=== PATIENT | male | born 1960 | race Hispanic/Latino ===

== ENCOUNTER 2022-06-11 10:58 | Emergency (ER) | payer BC, OTHER ==
--- OUTSIDE RECORDS SUMMARY | 2022-06-11 11:01 | XMS REPORT | Continuity of Care Document ---
:1960 Author Organization [facility] t Address [address] [place] [address] Care Team Providers Name Role Phone Loreto Tomlinson DO Primary Care Physician LORETO TOMLINSON Attending Clinician Unavailable [id number] Attending Clinician Unavailable Loreto Tomlinson DO Attending Clinician Payers Payer Name Policy Type Policy Number Effective Date Expiration Date S yordan 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 diabetes diabetes 5-25 Seybol d mellitus mellitus 00:00: with with 00 hyperlipid hyperlipid emia emia Well adult Well adult Disease Active K elsey exam exam 5-25 Seybold 00:00: 00 Overweight Overweight Disease Active K elsey (BMI (BMI 5-25 Seybold 25.0-29.9) 25.0-29.9) 00:00: 00 Mixed Mixed Problem Active Common hyperlipid hyperlipid Sp hali emia emia - [facility] Uncontroll Uncontroll Diagnosis Active Common ed type 2 ed type 2 Spir it diabetes diabetes - [facility] mellitus mellitus [facility] without [facility] complicati complicati Me dical on, on, Center without without long-term long-term current current use of use of insulin insulin Essential Essential Problem Active Com mon hypertensi hypertensi Sp hali on on - [facility] Diabetes Diabetes Problem Active Commo n [facility] Hyperlipid Hyperlipid Diagnosis Active Common emia, emia, Spirit unspecifie unspecifie - [facility] d d hyperlipid hyperlipid Liz kes emia type emia type [facility] Fever, Fever, Diagnosis Active Common unspecifie unspecifie Sp hali d fever d fever - [facility] cause cause [facility] Flu-like Flu-like Diagnosis Active Com mon symptoms symptoms [facility] Hypertensi Hypertensi Diagnosis Active Common ve urgency ve urgency Sp hali - [facility] Viral Viral Diagnosis Active Common upper upper Spirit respirator respirator - [facility] y illness y illness [facility] Allergies, Adverse Reactions, Alerts This patient has no known allergies or adverse reactions. Social History Social Habit Start Date Stop Date Quantity Comments Source History SDOH Charo junior Alcohol Frequency History SDOH Charo junior Alcohol Std Drinks History SDOH Charo junior Alcohol Binge Alcohol intake 2022-02-23 2022-02-23 Charo delong 00:00:00 00:00:00 Education 2022-02-10 2022-02-10 6 Charo Doss 00:00:00 00:00:00 Tobacco use and 2022-02-10 2022-02-10 Smokeless tobacco Clyde Doss exposure 00:00:00 00:00:00 non-user Alcohol Comment 2022-02-10 2022-02-10 occasionally Charo Doss 00:00:00 00:00:00 Sex [birth year] At [birth year] Charo miller 00:00:00 00:00:00 Smoking Status Start Date Stop Date Source Never smoked tobacco Charo dumont Medications Ordered Filled Start Stop Current Ordering Indication Dosage Frequency Signature Comments Components Source Medication Medication Date Date Medication? Clinician (SIG) Name Name Lisinopril Yes [id number] 20mg Take 1 K elsey 20 MG oral 6-07 tablet (20 Sey bold Tablet 00:00: mg total) 00 by mouth daily Lisinopril Yes [id number] 10mg Take 1 K elsey 10 MG oral 5-25 tablet (10 Sey bold Tablet 00:00: mg total) 00 by mouth daily Metformin Yes [id number] 500mg Take 1 K elsey HCl 500 MG 5-25 tablet Seybold oral Tablet 00:00: (500 mg 00 total) by mouth daily (with breakfast) Metformin Yes [id number] 500mg Take 1 K elsey HCl 500 MG 5-25 tablet Seybold oral Tablet 00:00: (500 mg 00 total) by mouth daily (with breakfast) Lisinopril 2021- No [id number] 10mg Take 1 Charo 10 MG oral 5-25 06-07 tablet (10 Se ybold Tablet 00:00: 00:00 mg total) 00 :00 by mouth daily Metformin Metformin Yes Na Owens 1 tablet Common HCl HCl 3-19 with meals Spirit 00:00: - [facility] Pravastatin Pravastatin Yes Na Owens 1 tablet Common Sodium Sodium 12-05 Spirit 00:00: - [facility] Amlodipine Amlodipine Yes Na Owens 1 tablet Common Besylate Besylate 12-05 Spirit 00:00: - [facility] 00 [facility] Glucometer Glucometer 2017-2025- No Na Owens Check BS Common Kit Kit 11-17 twice a Spirit 00:00: 00:00 day - [facility] 00 :00 [facility] Lisinopril Lisinopril Yes Na Owens 1 tablet Common [facility] - [facility] Immunizations Ordered Immunization Filled Immunization Date Status Commen ts Source Name Name Tdap- (Boostrix, 2022-02-10 Completed Charo thompson Adasantiago) 00:00:00 Tdap- (Boostrix, 2022-02-10 Completed Charo thompson Adacel) 00:00:00 Vital Signs Vital Name Observation Time Observation Value Comments Source Systolic blood pressure 2022-02-23 15:46:00 148 mm[Hg] Charo Seybold Diastolic blood 2022-02-23 15:46:00 70 mm[Hg] Kelse y Seybold pressure Heart rate 2022-02-23 15:46:00 107 /min Charo S eybold Body temperature 2022-02-23 15:46:00 36.89 Santiago Parul ey Seybold Respiratory rate 2022-02-23 15:46:00 16 /min Parul ey Seybold Body height 2022-02-23 15:46:00 170.2 cm Charo S eybold Body weight 2022-02-23 15:46:00 80.287 kg Charo S eybold BMI 2022-02-23 15:46:00 27.72 kg/m2 Charo S eybold Systolic blood pressure 2022-02-10 18:31:00 170 mm[Hg] Charo Seybold Diastolic blood 2022-02-10 18:31:00 80 mm[Hg] Kelse y Seybold pressure Heart rate 2022-02-10 18:31:00 106 /min Charo Pabon eybold Body temperature 2022-02-10 18:31:00 36.67 Santiago Parul ey Seybold Respiratory rate 2022-02-10 18:31:00 14 /min Parul ey Seybold Body height 2022-02-10 18:31:00 170.2 cm Charo morelandbold Body weight 2022-02-10 18:31:00 81.647 kg Charo morelandbold BMI 2022-02-10 18:31:00 28.19 kg/m2 Charo morelandbold Oxygen saturation in 2022-02-10 18:31:00 99 /min Charo Doss Arterial blood by Pulse oximetry Procedures This patient has no known procedures. Encounters Start End Encounter Admission Attending Care Care Encounter Source Date/Time Date/Time Type Type Clinicians Facility Department ID 2022-06-11 2022-06-11 Outpatient CHARO TOMLINSON [id number] Charo 00:00:00 00:00:00 LORETO Monteroybol d 2022-06-02 2022-06-02 Outpatient LAB90 CHARO OTERO [id number] Charo 11:55:00 11:55:00 Seybol d 2022-06-01 2022-06-01 Outpatient CHARO TOMLINSON [id number] Charo 00:00:00 00:00:00 LORETO Seybol d 2022-05-31 2022-05-31 Outpatient PREZAS, CHARO CHARO [id number] Charo 00:00:00 00:00:00 LORETO Seybol d 2022-05-28 2022-05-28 Office PrezaSandoval pabon [id number] Charo 15:45:00 16:00:00 Visit Loreto Souza [id number] Se ybold [id number] 2022-03-23 2022-03-23 Outpatient PREZASCHARO CHARO [id number] Charo 08:00:00 08:00:00 LORETO Seybol d 2022-03-15 2022-03-15 Outpatient PREZAS, CHARO CHARO [id number] Charo 00:00:00 00:00:00 LORETO Seybol d 2022-02-23 2022-02-23 Office PrezaSandoval pabon [id number] Charo 10:45:00 11:00:00 Visit Loreto Souza [id number] Se ybold [id number] 2022-02-23 2022-02-23 Outpatient PREZAS, CHARO CHARO [id number] Charo 00:00:00 00:00:00 LORETO Seybol d 2022-02-10 2022-02-10 Office JoseluiszaSandoval pabon [id number] Charo 13:45:00 14:15:00 Visit Loreto Souza [id number] Se ybold [id number] 2018-12-21 2018-12-21 [facility] [id number] Common 14:40:00 14:40:00 t Transfer To [facility] [address] [facility] 2017-12-21 2017-12-21 [facility] [id number] Common 16:14:00 16:14:00 t Transfer To [facility] [address] [facility] 2017-12-05 2017-12-05 Outpatient Dioncorinne [facility] [id number] Common 11:30:00 11:30:00 t Transfer To [facility] Results This patient has no known results.
[2022-06-11 12:36] LABS: Absolute Lymphocytes (CBC) 1.8 K/uL (0.7-4.9); Hematocrit 30.4 % (39.6-49.0); Lymphocytes % 12.2 % (15.3-44.8); MCV 68.2 fL (80-100); MPV 7.3 fL (7.6-11.3); RBC Red Blood Cell Count 4.46 M/uL (4.33-5.43)
[2022-06-11] MEDS ORDERED: NA CHLORIDE 0.9% 1,000 ML ONE ×2 (12:43→16:14)
[2022-06-11 12:49] LABS: Albumin 2.1 g/dL (3.4-5.0); Bilirubin Total 0.4 mg/dL (0.2-1.0); Potassium 3.1 mmol/L (3.5-5.1); Protein, Total 7.3 g/dL (6.4-8.2)
[2022-06-11 13:22] LABS: Blood Morphology Comment NOT SEEN (NOT SEEN); Platelet Estimate INCR; White Blood Cell Scan OK (OK)
[2022-06-11] MEDS ORDERED: PROMETHAZINE INJ 25 MG/ML AMP ONE (13:27)
--- NOTE | 2022-06-11 13:36 | RAD REPORT ---
EXAM DESCRIPTION: CT - Abdomen Pelvis Wo Contrast - 06/11/2022 1:08 pm CLINICAL HISTORY: Abdominal pain. sadf COMPARISON: No comparisons TECHNIQUE: CT imaging of the abdomen and pelvis was performed without contrast. Solid organ, bowel a nd vascular assessment is limited due to lack of IV and oral contrast. All CT scans are performed using dose optimization technique as appropriate and may include automated exposure control or mA/KV adjustment according to patient size. FINDINGS: The lower lung andrews are clear. The liver, spleen, pancreas, adrenal glands and right kidney are within normal limits for a limited n on-contrast examination.Punctate calculi are seen left kidney without hydronephrosis. There is severe distention of the colon present which appears filled with stool. There is a masslike lesion suspected upper rectum which appears to cause this obstruction. This is a large lesion measur ing approximately 6 x 5 cm. There are several surrounding lymph nodes and mild free fluid noted in th e pelvis. Full assessment is limited due to the significant impaction of stool in the colon and and l ack contrast. The osseous structures are within normal limits. IMPRESSION: Obstruction of the colon is present. This is likely caused by a masslike lesion in the u pper rectal region. Malignancy is most likely. Recommend followup colonoscopy for direct visualizatio n. A limited non-contrast examination was performed as detailed.
--- NOTE | 2022-06-11 14:12 | EDPHYS ---
Physician Documentation [facility] Name: Catalino Song Age: 61 yrs Sex: Male : 1960 Arrival Date: 06/11/2022 Time: 11:02 Bed 12 Private MD: Lincoln Cullen ED Physician Timmy Dias HPI: 06/11 11:44 This 61 yrs old Male presents to ER via Unassigned with complaints of jl9 Abdominal pain and constipation x2 weeks. . 11:44 The patient presents with abdominal pain that is diffuse, abdominal distention that is jl9 diffuse. blunt injury. Onset: The symptoms/episode began/occurred 2 week(s) ago. The symptoms do not radiate. Associated signs and symptoms: Pertinent positives:. The symptoms are described as achy. Modifying factors: The symptoms are alleviated by nothing, the symptoms are aggravated by. Severity of pain: in the emergency department the pain is a 3 / 10. Historical: - Allergies: 12:07 No Known Allergies; ld1 - PMHx: 12:07 Hypertensive disorder; Hypercholesterolemia; Diabetes mellitus; ld1 - PSHx: 12:07 None; ld1 - Immunization history:: Adult Immunizations up to date, Client reports receiving the 2nd dose of the Covid vaccine. - Social history:: Smoking status: Patient denies any tobacco usage or history of. Patient/guardian denies using alcohol. ROS: 11:45 Constitutional: Negative for fever, chills, and weight loss, Eyes: Negative for injury, jl9 pain, redness, and discharge, ENT: Negative for injury, pain, and discharge, Neck: Negative for injury, pain, and swelling, Cardiovascular: Negative for chest pain, palpitations, and edema, Respiratory: Negative for shortness of breath, cough, wheezing, and pleuritic chest pain. 11:45 Back: Negative for injury and pain, : Negative for injury, bleeding, discharge, and swelling, MS/Extremity: Negative for injury and deformity, Skin: Negative for injury, rash, and discoloration, Neuro: Negative for headache, weakness, numbness, tingling, and seizure, Psych: Negative for depression, anxiety, suicide ideation, homicidal ideation, and hallucinations, Allergy/Immunology: Negative for hives, rash, and allergies, Endocrine: Negative for neck swelling, polydipsia, polyuria, polyphagia, and marked weight changes, Hematologic/Lymphatic: Negative for swollen nodes, abnormal bleeding, and unusual bruising. 11:45 Abdomen/GI: Positive for abdominal pain. Exam: 11:45 Constitutional: This is a well developed, well nourished patient who is awake, alert, jl9 and in no acute distress. Head/Face: Normocephalic, atraumatic. Eyes: Pupils equal round and reactive to light, extra-ocular motions intact. Lids and lashes normal. Conjunctiva and sclera are non-icteric and not injected. Cornea within normal limits. Periorbital areas with no swelling, redness, or edema. ENT: Mucous membranes moist. Neck: Trachea midline, no thyromegaly or masses palpated, and no cervical lymphadenopathy. Supple, full range of motion without nuchal rigidity, or vertebral point tenderness. No Meningismus. Chest/axilla: Normal chest wall appearance and motion. Nontender with no deformity. No lesions are appreciated. Cardiovascular: Regular rate and rhythm with a normal S1 and S2. No gallops, murmurs, or rubs. Normal PMI, no JVD. No pulse deficits. Respiratory: Lungs have equal breath sounds bilaterally, clear to auscultation and percussion. No rales, rhonchi or wheezes noted. No increased work of breathing, no retractions or nasal flaring. 11:45 Back: No spinal tenderness. No costovertebral tenderness. Full range of motion. Skin: Warm, dry with normal turgor. Normal color with no rashes, no lesions, and no evidence of cellulitis. MS/ Extremity: Pulses equal, no cyanosis. Neurovascular intact. Full, normal range of motion. Neuro: Awake and alert, GCS 15, oriented to person, place, time, and situation. Cranial nerves II-XII grossly intact. Motor strength 5/5 in all extremities. Sensory grossly intact. Cerebellar exam normal. Normal gait. Psych: Awake, alert, with orientation to person, place and time. Behavior, mood, and affect are within normal limits. 11:45 Abdomen/GI: Inspection: distension, that is mild, Bowel sounds: active, Palpation: mild abdominal tenderness, in all quadrants, Rectal exam: Vital Signs: 12:06 Resp 18; Temp 97.3(TE); Pulse Ox 98% on R/A; Weight 79.38 kg; Height 5 ft. 8 in. ld1 (172.72 cm); Pain 8/10; 12:13 BP 121 / 78; Pulse 109; ld1 12:30 BP 134 / 85; Pulse 101; Resp 18; Pulse Ox 100% on R/A; Pain 0/10; eh3 13:30 BP 130 / 84; Pulse 108; Resp 18; Pulse Ox 100% on R/A; eh3 14:30 BP 122 / 74; Pulse 111; Resp 18; Pulse Ox 99% on R/A; eh3 15:24 BP 135 / 73; Pulse 115; Resp 18 S; Pulse Ox 100% on R/A; iw 16:30 BP 199 / 76; Pulse 101; Resp 18; Pulse Ox 100% on R/A; eh3 16:51 BP 112 / 71; Pulse 101; Resp 18; Pulse Ox 98% on R/A; iw 12:06 Body Mass Index 26.61 (79.38 kg, 172.72 cm) ld1 MDM: 11:41 Patient medically screened. [facility] 11:45 Data reviewed: vital signs, nurses notes. 9 14:09 Physician consultation: Carlos A Tsai MD was called at 14:09, Recommends patient be jl9 transferred. . 15:35 Physician consultation: Spoke to [facility] surgeon and hospitalist and they accept for jl9 transfer. . 06/11 11:36 Order name: CBC with Diff; Complete Time: 13:29 [facility] 06/11 11:36 Order name: CMP; Complete Time: 12:50 [facility] 06/11 11:36 Order name: Lipase; Complete Time: 12:50 [facility] 06/11 13:23 Order name: CBC Smear Scan; Complete Time: 13:29 [facility] 06/11 13:40 Order name: Lactate; Complete Time: 15:45 [facility] 06/11 13:40 Order name: Blood Culture Adult (2) [facility] 06/11 13:00 Order name: Abdomen ; Complete Time: 13:39 [facility] 06/11 14:19 Order name: SARS RAPID; Complete Time: 15:15 eb 06/11 15:25 Order name: XRAY KUB; Complete Time: 16:08 iw 06/11 11:36 Order name: IV Saline Lock; Complete Time: 12:29 [facility] 06/11 11:36 Order name: Labs collected and sent; Complete Time: 12:30 jl9 06/11 13:41 Order name: NG Tube; Complete Time: 15:23 jl9 Administered Medications: 12:37 Drug: NS 0.9% 1000 ml Route: IV; Rate: 1000 ml; Site: right antecubital; [facility] 14:25 Follow up: IV Status: Completed infusion; IV Intake: 1000ml [facility] 13:25 Drug: Promethazine 12.5 mg Route: IVP; Site: right antecubital; [facility] 14:25 Follow up: Response: Nausea is decreased [facility] 16:16 Drug: NS 0.9% 1500 ml Route: IV; Rate: 1500 ml; Site: right antecubital; [facility] 17:40 Follow up: IV Status: Infusion continued upon transfer; IV Intake: 500ml [facility] 16:40 Drug: Cipro (ciprofloxacin) 400 mg Volume: 200 ml; Route: IVPB; Infused Over: 60 mins; [facility] Site: right antecubital; 17:40 Follow up: IV Status: Completed infusion; IV Intake: 200ml [facility] 16:40 Drug: metroNIDAZOLE 500 mg Volume: 100 ml; Route: IVPB; Infused Over: 30 mins; Site: [facility] right antecubital; 17:38 Follow up: IV Status: Completed infusion; IV Intake: 100ml [facility] Disposition: 16:09 Co-signature as Attending Physician, Timmy Dias MD. rn Disposition Summary: 06/11/22 14:11 Transfer Ordered Transfer Location: [facility] jl9 Reason: Higher level of care jl9 Condition: Serious jl9 Problem: new jl9 Symptoms: are unchanged jl9 Accepting Physician: s(06/11/22 17:41) [facility] Diagnosis - Other intestinal obstruction jl9 Forms: - Medication Reconciliation Form jl9 - SBAR form jl9 Signatures: Dispatcher [employer] EDTimmy Berkowitz MD MD rn Dibbern, Lauren, RN RN ld1 Latasha Walters RN RN 3 Vickey Smiley jl9 Corrections: (The following items were deleted from the chart) 13:00 11:47 Abdomen Pelvis W Con+CT.RAD.BRZ ordered. EDMS EDMS 17:41 14:11 s 9 3
--- NOTE | 2022-06-11 14:12 | ER ---
Nurse's Notes [facility] Name: Catalino Song Age: 61 yrs Sex: Male : 1960 Arrival Date: 06/11/2022 Time: 11:02 Bed 12 Private MD: Lincoln Cullen Diagnosis: Other intestinal obstruction Presentation: 06/11 12:06 Chief complaint: Patient states: abdominal distention, pain and constipation. Pt ld1 reporting constipation for 7-8 weeks. Coronavirus screen: At this time, the client does not indicate any symptoms associated with coronavirus-19. Ebola Screen: No symptoms or risks identified at this time. Initial Sepsis Screen: Does the patient meet any 2 criteria? No. Patient's initial sepsis screen is negative. Does the patient have a suspected source of infection? No. Patient's initial sepsis screen is negative. Risk Assessment: Do you want to hurt yourself or someone else? Patient reports no desire to harm self or others. Onset of symptoms was June 11, 2022. 12:06 Method Of Arrival: Ambulatory ld1 12:06 Acuity: CARLA 3 ld1 Triage Assessment: 12:07 General: Appears in no apparent distress. uncomfortable, Behavior is calm, cooperative, ld1 appropriate for age. Pain: Complains of pain in abdomen Pain does not radiate. Pain currently is 8 out of 10 on a pain scale. Quality of pain is described as throbbing, Is continuous. EENT: No signs and/or symptoms were reported regarding the EENT system. Neuro: Level of Consciousness is awake, alert, obeys commands, Oriented to person, place, time, situation. Cardiovascular: Capillary refill < 3 seconds Patient's skin is warm and dry. Respiratory: Airway is patent Respiratory effort is even, unlabored. GI: Abdomen is round distended, Last BM was March 2022. : No signs and/or symptoms were reported regarding the genitourinary system. Derm: No signs and/or symptoms reported regarding the dermatologic system. Musculoskeletal: No signs and/or symptoms reported regarding the musculoskeletal system. Historical: - Allergies: 12:07 No Known Allergies; ld1 - PMHx: 12:07 Hypertensive disorder; Hypercholesterolemia; Diabetes mellitus; ld1 - PSHx: 12:07 None; ld1 - Immunization history:: Adult Immunizations up to date, Client reports receiving the 2nd dose of the Covid vaccine. - Social history:: Smoking status: Patient denies any tobacco usage or history of. Patient/guardian denies using alcohol. Screenin:30 Abuse screen: Denies threats or abuse. Denies injuries from another. Nutritional eh3 screening: No deficits noted. Tuberculosis screening: No symptoms or risk factors identified. Fall Risk None identified. Assessment: 12:16 General: Appears in no apparent distress. uncomfortable, Behavior is calm, cooperative, eh3 appropriate for age. 12:30 Pain: Denies pain. Neuro: Level of Consciousness is awake, alert, obeys commands, eh3 Oriented to person, place, time, situation. Cardiovascular: Capillary refill < 3 seconds Patient's skin is warm and dry. Respiratory: Airway is patent Respiratory effort is even, unlabored. GI: Abdomen is round distended, Bowel sounds hypoactive in right upper quadrant, left upper quadrant, right lower quadrant and left lower quadrant Abdomen is tender to palpation Abd is rigid X 4 quads. GI: Reports lower abdominal pain, upper abdominal pain, constipation, diarrhea, flatulence, intolerance of fluids, intolerance of food, nausea, vomiting. : Reports inability to void. EENT: No signs and/or symptoms were reported regarding the EENT system. Derm: No signs and/or symptoms reported regarding the dermatologic system. Musculoskeletal: Circulation, motion, and sensation intact. Range of motion: intact in all extremities. 13:26 Reassessment: Patient and/or family updated on plan of care and expected duration. Pain eh3 level reassessed. Patient is alert, oriented x 3, equal unlabored respirations, skin warm/dry/pink. Pt unable to provide urine sample yet. Advised that we can do a straight cath to obtain urine sample. Pt declined. Provided urinal and educated importance of testing urine for infection. 14:30 Reassessment: Patient and/or family updated on plan of care and expected duration. Pain eh3 level reassessed. Patient is alert, oriented x 3, equal unlabored respirations, skin warm/dry/pink. 15:30 Reassessment: Patient and/or family updated on plan of care and expected duration. Pain eh3 level reassessed. Patient is alert, oriented x 3, equal unlabored respirations, skin warm/dry/pink. 16:30 Reassessment: Patient and/or family updated on plan of care and expected duration. Pain eh3 level reassessed. Patient is alert, oriented x 3, equal unlabored respirations, skin warm/dry/pink. Vital Signs: 12:06 Resp 18; Temp 97.3(TE); Pulse Ox 98% on R/A; Weight 79.38 kg; Height 5 ft. 8 in. ld1 (172.72 cm); Pain 8/10; 12:13 BP 121 / 78; Pulse 109; ld1 12:30 BP 134 / 85; Pulse 101; Resp 18; Pulse Ox 100% on R/A; Pain 0/10; eh3 13:30 BP 130 / 84; Pulse 108; Resp 18; Pulse Ox 100% on R/A; eh3 14:30 BP 122 / 74; Pulse 111; Resp 18; Pulse Ox 99% on R/A; eh3 15:24 BP 135 / 73; Pulse 115; Resp 18 S; Pulse Ox 100% on R/A; iw 16:30 BP 199 / 76; Pulse 101; Resp 18; Pulse Ox 100% on R/A; eh3 16:51 BP 112 / 71; Pulse 101; Resp 18; Pulse Ox 98% on R/A; iw 12:06 Body Mass Index 26.61 (79.38 kg, 172.72 cm) ld1 ED Course: 11:02 Patient arrived in ED. mr 11:03 Lincoln Cullen DO is Private Physician. mr 11:24 Vickey Smiley is [facility]. jl9 11:24 Timmy Dias MD is Attending Physician. jl9 12:04 Clarissa Bernstein, MALLIKA is Primary Nurse. ld1 12:07 Triage completed. ld1 12:07 Arm band placed on right wrist. ld1 12:30 Patient has correct armband on for positive identification. Bed in low position. Call eh3 light in reach. Side rails up X2. Client placed on continuous cardiac and pulse oximetry monitoring. NIBP monitoring applied. Door closed. Noise minimized. Warm blanket given. 12:30 CBC with Diff Sent. eh3 12:30 CMP Sent. eh3 12:30 Lipase Sent. eh3 12:30 No provider procedures requiring assistance completed. Inserted saline lock: 20 gauge eh3 in right antecubital area, using aseptic technique. Blood collected. 12:38 Primary Nurse role handed off by Clarissa Bernstein, RN eh3 12:38 Latasha Walters, RN is Primary Nurse. eh3 13:10 Abdomen In Process Unspecified. EDMS 14:18 initiated a transfer with Francoise George Rn from the [facility] Transfer center. eb 14:25 Blood Culture Adult (2) Sent. eh3 14:25 Lactate Sent. eh3 14:40 SARS RAPID Sent. eh3 15:[address] Bear the hospitalist section cutter for [facility] with Vic for patient eb transfer consultation. 15:48 XRAY KUB In Process Unspecified. EDMS 16:30 administrative approval given by Francoise George Rn/ patient has been accepted to [facility] 15 tower 1523/ Dr. Bear has accepted the patient in transfer / report to be called to [phone]. 17:41 Patient transferred, IV remains in place. eh3 Administered Medications: 12:37 Drug: NS 0.9% 1000 ml Route: IV; Rate: 1000 ml; Site: right antecubital; eh3 14:25 Follow up: IV Status: Completed infusion; IV Intake: 1000ml eh3 13:25 Drug: Promethazine 12.5 mg Route: IVP; Site: right antecubital; eh3 14:25 Follow up: Response: Nausea is decreased eh3 16:16 Drug: NS 0.9% 1500 ml Route: IV; Rate: 1500 ml; Site: right antecubital; eh3 17:40 Follow up: IV Status: Infusion continued upon transfer; IV Intake: 500ml eh3 16:40 Drug: Cipro (ciprofloxacin) 400 mg Volume: 200 ml; Route: IVPB; Infused Over: 60 mins; eh3 Site: right antecubital; 17:40 Follow up: IV Status: Completed infusion; IV Intake: 200ml eh3 16:40 Drug: metroNIDAZOLE 500 mg Volume: 100 ml; Route: IVPB; Infused Over: 30 mins; Site: [facility] right antecubital; 17:38 Follow up: IV Status: Completed infusion; IV Intake: 100ml eh3 Medication: 12:30 VIS not applicable for this client. eh3 Intake: 14:25 IV: 1000ml; Total: 1000ml. eh3 17:38 IV: 100ml; Total: 1100ml. eh3 17:40 IV: 200ml; Total: 1300ml. eh3 17:40 IV: 500ml; Total: 1800ml. eh3 Outcome: 14:11 ER care complete, transfer ordered by MD. marrero 17:40 Transferred by ground EMS to [facility], Transfer form completed. eh3 X-rays sent w/ patient. 17:40 Condition: stable 17:40 Instructed on the need for transfer. 17:41 Patient left the ED. eh3 Signatures: Dispatcher [employer] EDWV DylonJenni Irene, RN RN iw [facility] Lauren RN RN ld1 Latasha Walters RN RN eh3 Vickey Smiley Corrections: (The following items were deleted from the chart) 12:31 12:16 General: Appears in no apparent distress. uncomfortable, Behavior is calm, eh3 cooperative, appropriate for age, eh3
[2022-06-11 15:14] LABS: SARS-CoV-2 Antigen Rapid Res Negative (Negative)
--- NOTE | 2022-06-11 16:01 | RAD REPORT ---
EXAM DESCRIPTION: RAD - Abdomen 1 View (KUB) - 06/11/2022 3:47 pm CLINICAL HISTORY: NG tube placement Pain COMPARISON: No comparisons FINDINGS: Tip of the enteric tube is in the stomach.
[2022-06-11] MEDS ORDERED: CIPROFLOXACIN 400mg IV 400 MG/200 ML BAG IV ONE (16:13)
[2022-06-11] MEDS ORDERED: NA CHLORIDE 0.9% 500 ML ONE (16:14)
[2022-06-11] MEDS ORDERED: METRONIDAZOLE 500mg IVPB 500 MG/100 ML BAG IV ONE (16:14)
[2022-06-13 05:38] VITALS: TEMP 97.3
[2022-06-13 05:55] VITALS: BP 112/71; O2SAT 98
== END 2022-06-11 17:41 | disposition short-term general hospital (02) ==
LOC: ER 10:58
DX: K56.699 Other intestinal obstruction unspecified as to partial versus complete obstruction (principal); Z20.822 Contact with and (suspected) exposure to COVID-19
CPT/HCPCS: 96365; 96361; 96368; 87040 ×2; 85025; 36415; 83605; 83690; 80053; 74176; 74018; 99285; 87811; J2550; J7040; J7030 ×2; J0744

== ENCOUNTER 2022-11-26 15:02 | Observation (INO) | payer BC ==
--- OUTSIDE RECORDS SUMMARY | 2022-11-26 15:22 | XMS REPORT | Continuity of Care Document ---
:1960 Author Organization [facility] t Address [address] [facility]. [address] [place] [address] Care Team Providers Name Role Phone Lincoln Cullen DO Primary Care Physician MATT AHUMADA Attending Clinician Unavailable [id number] Attending Clinician Unavailable FLORINDA GRAY Attending Clinician Unavailable ZITA, MATT Attending Clinician Unavailable ROLY CARLOS Attending Clinician Unavailable STALIN GRACE Attending Clinician Unavailable Ervin Hammond MD Attending Clinician Agapito Mckenzie MD Attending Clinician [phone] Román Laureano MD Attending Clinician Dilip DANIELS, Stalin Mujica Attending Clinician Justin DANIELS, Norman Diaz Attending Clinician [phone] Zita DANIELS, Matt Attending Clinician Sheikh FRANCES, Zena Smith Attending Clinician Kaylee Peña Attending Clinician ANTONIOZENA MIKALA Attending Clinician Unavailable Negrito DANIELS, Jose Hunter Attending Clinician NITZA WOOD Attending Clinician Unavailable ROLY HAND Attending Clinician Unavailable LINCOLN CULLEN Attending Clinician Unavailable [id number] Attending Clinician Unavailable Merchant DANIELS, Shravan Attending Clinician Braulio DANIELS, Samantha Mcdermott Attending Clinician [phone] Jamar DANIELS, Ludivina Attending Clinician Charley DANIELS, Annie Attending Clinician LUDIVINA ROLDAN Attending Clinician Unavailable Edwardo DANIELS, Bret Cuba Attending Clinician Ligia DANIELS, Mata Drummond Attending Clinician [phone] Lincoln Cullen DO Attending Clinician MATT AHUMADA Admitting Clinician Unavailable [id number] Admitting Clinician Unavailable AGAPITO MCKENZIE Admitting Clinician Unavailable SAMANTHA GARCIA Admitting Clinician Unavailable Payers Payer Name Policy Type Policy Number Effective Date Expiration Date S yordan BCBS OS [id number] 2021 00:00:00 POS/PPO/EPO BCBS BCTP [id number] OUT OF STATE [id number] 2021 00:00:00 BCBS - PPO - BCBS CVCP-BCBS [id number] BCBS 2 [id number] 2022 00:00:00 Problems Condition Condition Condition Status Onset Resolution Last Treating Co mments Source Name Details Category Date Date Treatment Clinician Date Acute Acute Disease Active [facility] Coronary Coronary Disease Active Overview: [facility] artery artery 2-15 [facility] disease disease 00:[facility]: g of this Medic al 00 note Center might be different from the original. Fixed apical defect, small by SPECT 10/11/22 - mildly reduced LVEF - stable Symptomati Symptomati Disease Active 2023-[address] [facility] anemia c anemia 2-08 [facility] Colon Colon Disease Active [facility] obstructio obstructio 06-12 Liz kes n n 00:00: Medical 00 Center Hypokalemi Hypokalemi Disease Active [facility] a 06[facility]12 [facility] CARSON (acute CARSON (acute Disease Active [facility] kidney kidney 06-12 [facility] injury) injury) 00:00: Medical 00 Center Primary Primary Disease Active [facility] hypertensi hypertensi 06-12 Liz kes on on 00:00: Medical 00 Center Type 2 Type [address] [facility] diabetes diabetes 06-12 [facility] mellitus, mellitus, 00:00: [facility] mitul without without 00 Center long-term long-term current current use of use of insulin insulin Large Large Disease Active Overview: [facility] bowel bowel 06-11 [facility] obstructio obstructio 00:00: g of this Medical n n 00 note Center might be different from the original. Added automatic ally from request for surgery [id number] Primary Primary Disease Active Charo hypertensi hypertensi [...] Common hyperlipid hyperlipid Sp hali emia emia [facility] Uncontroll Uncontroll Diagnosis Active Common ed type 2 ed type 2 Spir it diabetes diabetes - [facility] mellitus mellitus St without without [facility] complicati complicati Me dical on, on, Center without without long-term long-term current current use of use of insulin insulin Essential Essential Problem Active Com mon hypertensi hypertensi Sp hali on on - [facility] Diabetes Diabetes Problem Active Commo n Spirit - [facility] Hyperlipid Hyperlipid Diagnosis Active Common emia, emia, Spirit unspecifie unspecifie - [facility] d hyperlipid hyperlipid [facility] emia type emia type [facility] Fever, Fever, Diagnosis Active Common unspecifie unspecifie Sp hali d fever d fever - [facility] cause cause [facility] Flu-like Flu-like Diagnosis Active Com mon symptoms symptoms [facility] Hypertensi Hypertensi Diagnosis Active Common ve urgency ve urgency Sp hali [facility] Viral Viral Diagnosis Active Common upper upper Spirit respirator respirator - [facility] y illness y illness [facility] Allergies, Adverse Reactions, Alerts Allergy Allergy Status Severity Reaction(s) Onset Inactive Treating Comm ents Source Name Type Date Date Clinician NO KNOWN Allergy Active [facility] Social History Social Habit Start Date Stop Date Quantity Comments Source History SDOH Charo junior Alcohol Frequency History SDOH Charo junior Alcohol Std Drinks History [facility] Charo junior Alcohol Binge Alcohol intake 2022-11-05 2022-11-05 Ex-drinker (finding) [facility] 00:00:00 00:00:00 [facility] Exposure to 2022-10-17 2022-10-27 Not sure [facility] SARS-CoV-2 00:00:00 23:09:00 [facility] (event) Tobacco use and 2022-10-12 2022-10-12 Never used [facility] exposure 00:00:00 00:00:00 [facility] Education 2022-02-10 2022-02-10 6 Charo Doss 00:00:00 00:00:00 Alcohol Comment 2022-02-10 2022-02-10 occasionally Charo Doss 00:00:00 00:00:00 Sex [birth year] [facility] 00:00:00 00:00:00 [facility] Smoking Status Start Date Stop Date Source Never smoker [facility] Former smoker 2022-06-11 00:00:00 2022-06-11 00:00:00 [facility] Medications Ordered Filled Start Stop Current Ordering Indication Dosage Frequency Signature Comments Components Source Medication Medication Date Date Medication? Clinician (SIG) Name Name docusate 2023-0 Yes 100mg QD Take [address] [facility] [address] sodium 2-21 mg by [facility] (COLACE) 00:00: mouth Medical 100 MG 50 daily. Center capsule pantoprazol 2023-0 Yes 40mg QD Take [address] [facility] e 2-21 by mouth [facility] (PROTONIX) 00:00: daily. Medic al 40 MG 50 Center tablet loperamide 2023-0 Yes 2mg Q.5D Take [address] (Imodium 2-21 by mouth 2 [facility] A-D) 2 mg 00:00: (two) Medical capsule 50 times Center daily. tamsulosin 2023-0 Yes .4mg QD Take 0.[address] [facility] [address] (FLOMAX) 2-21 mg by [facility] 0.4 mg Cap 00:00: mouth Medica l 24 hr 50 daily. Center capsule ferrous 2023-0 Yes 325mg Take 325 [facility] sulfate 325 2-21 mg by [facility] (65 FE) MG 00:00: mouth Medica l tablet 50 daily with Center breakfast. docusate 2023-0 Yes 100mg QD Take [address] [facility] [address] sodium 2-21 mg by [facility] (COLACE) 00:00: mouth Medical 100 MG 50 daily. Center capsule pantoprazol 2023-0 Yes 40mg QD Take [address] [facility] e 2-21 by mouth [facility] (PROTONIX) 00:00: daily. Medic al 40 MG 50 Center tablet loperamide 3-0 Yes 2mg Q.5D Take [address] (Imodium 2-21 by mouth 2 [facility] A-D) 2 mg 00:00: (two) Medical capsule 50 times Center daily. tamsulosin 2023-0 Yes .4mg QD Take 0.[address] [facility] [address] (FLOMAX) 2-21 mg by [facility] 0.4 mg Cap 00:00: mouth Medica l 24 hr 50 daily. Center capsule ferrous 2023-0 Yes 325mg Take 325 [facility] sulfate 325 2-21 mg by [facility] (65 FE) MG 00:00: mouth Medica l tablet 50 daily with Center breakfast. docusate 2023-0 Yes 100mg QD Take [address] [address] sodium 2-21 mg by [facility] (COLACE) 00:00: mouth Medical 100 MG 50 daily. Center capsule pantoprazol 2023-0 Yes 40mg QD Take [address] [facility] e 2-21 by mouth [facility] (PROTONIX) 00:00: daily. Medic al 40 MG 50 Center tablet loperamide 2023-0 Yes 2mg Q.5D Take [address] [facility] [address] [facility] (Imodium 2-21 by mouth 2 [facility] A-D) 2 mg 00:00: (two) Medical capsule 50 times Center daily. tamsulosin 2023-0 Yes .4mg QD Take 0.[address] [facility] [address] (FLOMAX) 2-21 mg by [facility] 0.4 mg Cap 00:00: mouth Medica l 24 hr 50 daily. Center capsule ferrous 2023-0 Yes 325mg Take 325 [facility] sulfate 325 2-21 mg by [facility] (65 FE) MG 00:00: mouth Medica l tablet 50 daily with Center breakfast. docusate 2023-0 Yes 100mg QD Take [address] sodium 2-21 mg by [facility] (COLACE) 00:00: mouth Medical 100 MG 50 daily. Center capsule pantoprazol 2023-0 Yes 40mg QD Take [address] [facility] e 2-21 by mouth [facility] (PROTONIX) 00:00: daily. Medic al 40 MG 50 Center tablet loperamide 2023-0 Yes 2mg Q.5D Take [address] (Imodium 2-21 by mouth 2 [facility] A-D) 2 mg 00:00: (two) Medical capsule 50 times Center daily. tamsulosin 2023-0 Yes .4mg QD Take 0.[address] [facility] [address] (FLOMAX) 2-21 mg by [facility] 0.4 mg Cap 00:00: mouth Medica l 24 hr 50 daily. Center capsule ferrous 2023-0 Yes 325mg Take 325 [facility] sulfate 325 2-21 mg by [facility] (65 FE) MG 00:00: mouth Medica l tablet 50 daily with Center breakfast. docusate 2023-0 Yes 100mg QD Take [address] sodium 2-21 mg by [facility] (COLACE) 00:00: mouth Medical 100 MG 50 daily. Center capsule pantoprazol 2023-0 Yes 40mg QD Take [address] [facility] e 2-21 by mouth [facility] (PROTONIX) 00:00: daily. Medic al 40 MG 50 Center tablet loperamide 2023-0 Yes 2mg Q.5D Take [address] (Imodium 2-21 by mouth 2 [facility] A-D) 2 mg 00:00: (two) Medical capsule 50 times Center daily. tamsulosin 2023-0 Yes .4mg QD Take 0.[address] [facility] [address] (FLOMAX) 2-21 mg by [facility] 0.4 mg Cap 00:00: mouth Medica l 24 hr 50 daily. Center capsule ferrous 2023-0 Yes 325mg Take 325 [facility] sulfate 325 2-21 mg by [facility] (65 FE) MG 00:00: mouth Medica l tablet 50 daily with Center breakfast. docusate 2023-0 Yes 100mg QD Take [address] sodium 2-21 mg by [facility] (COLACE) 00:00: mouth Medical 100 MG 50 daily. Center capsule pantoprazol 2023-0 Yes 40mg QD Take [address] [facility] e 2-21 by mouth [facility] (PROTONIX) 00:00: daily. Medic al 40 MG 50 Center tablet loperamide 2023-0 Yes 2mg Q.5D Take [address] (Imodium 2-21 by mouth 2 [facility] A-D) 2 mg 00:00: (two) Medical capsule 50 times Center daily. tamsulosin 2023-0 Yes .4mg QD Take 0.[address] [facility] (FLOMAX) 2-21 mg by [facility] 0.4 mg Cap 00:00: mouth Medica l 24 hr 50 daily. Center capsule ferrous 2023-0 Yes 325mg Take 325 [facility] sulfate 325 2-21 mg by [facility] (65 FE) MG 00:00: mouth Medica l tablet 50 daily with Center breakfast. docusate 2023-0 Yes 100mg QD Take [address] sodium 2-21 mg by [facility] (COLACE) 00:00: mouth Medical 100 MG 50 daily. Center capsule pantoprazol 2023-0 Yes 40mg QD Take [address] [facility] e 2-21 by mouth [facility] (PROTONIX) 00:00: daily. Medic al 40 MG 50 Center tablet loperamide 2023-0 Yes 2mg Q.5D Take [address] (Imodium 2-21 by mouth 2 [facility] A-D) 2 mg 00:00: (two) Medical capsule 50 times Center daily. tamsulosin 2023-0 Yes .4mg QD Take 0.[address] (FLOMAX) 2-21 mg by [facility] 0.4 mg Cap 00:00: mouth Medica l 24 hr 50 daily. Center capsule ferrous 2023-0 Yes 325mg Take 325 [facility] sulfate 325 2-21 mg by [facility] (65 FE) MG 00:00: mouth Medica l tablet 50 daily with Center breakfast. docusate 2023-0 Yes 100mg QD Take [address] sodium 2-21 mg by [facility] (COLACE) 00:00: mouth Medical 100 MG 50 daily. Center capsule pantoprazol 2023-0 Yes 40mg QD Take [address] [facility] e 2-21 by mouth [facility] (PROTONIX) 00:00: daily. Medic al 40 MG 50 Center tablet loperamide 2023-0 Yes 2mg Q.5D Take [address] (Imodium 2-21 by mouth 2 [facility] A-D) 2 mg 00:00: (two) Medical capsule 50 times Center daily. tamsulosin 2023-0 Yes .4mg QD Take 0.[address] [facility] [address] (FLOMAX) 2-21 mg by [facility] 0.4 mg Cap 00:00: mouth Medica l 24 hr 50 daily. Center capsule ferrous 2023-0 Yes 325mg Take 325 [facility] sulfate 325 2-21 mg by [facility] (65 FE) MG 00:00: mouth Medica l tablet 50 daily with Center breakfast. docusate 2023-0 Yes 100mg QD Take [address] sodium 2-21 mg by [facility] (COLACE) 00:00: mouth Medical 100 MG 50 daily. Center capsule pantoprazol 2023-0 Yes 40mg QD Take [address] [facility] e 2-21 by mouth [facility] (PROTONIX) 00:00: daily. Medic al 40 MG 50 Center tablet loperamide 2023-0 Yes 2mg Q.5D Take [address] (Imodium 2-21 by mouth 2 [facility] A-D) 2 mg 00:00: (two) Medical capsule 50 times Center daily. tamsulosin 2023-0 Yes .4mg QD Take 0.[address] [facility] [address] (FLOMAX) 2-21 mg by [facility] 0.4 mg Cap 00:00: mouth Medica l 24 hr 50 daily. Center capsule ferrous 2023-0 Yes 325mg Take 325 [facility] sulfate 325 2-21 mg by [facility] (65 FE) MG 00:00: mouth Medica l tablet 50 daily with Center breakfast. lisinopriL 2022- No hypertensio 20mg QD Take [address] [facility] (PRINIVIL,Z 2-20 02-20 n by mouth Aamir es ESTRIL) 20 17:16: 00:00 daily. Medi mitul MG tablet 29 :00 [place] furosemide 2022- No 20mg QD Take [address] [facility] (LASIX) 20 2-20 02-20 by mouth Luke s MG tablet 17:16: 00:00 daily. Medic al 29 :00 [place] metFORMIN 2022- No 500mg Take [address] (GLUCOPHAGE 2-20 02-20 mg by [facility] ) 500 MG 17:16: 00:00 mouth Medical tablet 29 :00 daily with Center breakfast. lisinopriL 2022-2022- No hypertensio 20mg QD Take [address] [facility] (PRINIVIL,Z 2-20 02-20 n by mouth Aamir es ESTRIL) 20 17:16: 00:00 daily. Medi mitul MG tablet 29 :00 [place] furosemide 2022- No 20mg QD Take [address] (LASIX) 20 2-20 02-20 by mouth Luke s MG tablet 17:16: 00:00 daily. Medic al 29 :00 [place] metFORMIN 2022- No 500mg Take [address] (GLUCOPHAGE 2-20 02-20 mg by [facility] ) 500 MG 17:16: 00:00 mouth Medical tablet 29 :00 daily with Center breakfast. lisinopriL 2022-2022- No hypertensio 20mg QD Take [address] [facility] (PRINIVIL,Z 2-20 02-20 n by mouth Aamir es ESTRIL) 20 17:16: 00:00 daily. Medi mitul MG tablet 29 :00 [place] furosemide 2022- No 20mg QD Take [address] [facility] (LASIX) 20 2-20 02-20 by mouth Luke s MG tablet 17:16: 00:00 daily. Medic al 29 :00 [place] metFORMIN 2022- No 500mg Take [address] (GLUCOPHAGE 2-20 02-20 mg by [facility] ) 500 MG 17:16: 00:00 mouth Medical tablet 29 :00 daily with Center breakfast. lisinopriL 2022- No hypertensio 20mg QD Take [address] [facility] (PRINIVIL,Z 2-20 02-20 n by mouth Aamir es ESTRIL) 20 17:16: 00:00 daily. Medi mitul MG tablet 29 :00 Center furosemide 2022-0 202- No 20mg QD Take [address] [facility] (LASIX) 20 2-20 02-20 by mouth Luke s MG tablet 17:16: 00:00 daily. Medic al 29 :00 Center metFORMIN 2022-2022- No 500mg Take [address] (GLUCOPHAGE 2-20 02-20 mg by [facility] ) 500 MG 17:16: 00:00 mouth Medical tablet 29 :00 daily with Center breakfast. lisinopriL 2022-2022- No hypertensio 20mg QD Take [address] [facility] (PRINIVIL,Z 2-20 02-20 n by mouth Aamir es ESTRIL) 20 17:16: 00:00 daily. Medi mitul MG tablet 29 :00 Center furosemide 2022-2022- No 20mg QD Take [address] [facility] (LASIX) 20 2-20 02-20 by mouth Luke s MG tablet 17:16: 00:00 daily. Medic al 29 :00 [place] metFORMIN 2022- No 500mg Take [address] (GLUCOPHAGE 2-20 02-20 mg by [facility] ) 500 MG 17:16: 00:00 mouth Medical tablet 29 :00 daily with Center breakfast. lisinopriL 2022-2022- No hypertensio 20mg QD Take [address] [facility] (PRINIVIL,Z 2-20 02-20 n by mouth Aamir es ESTRIL) 20 17:16: 00:00 daily. Medi mtiul MG tablet 29 :00 Center furosemide 0 2022- No 20mg QD Take [address] [facility] (LASIX) 20 2-20 02-20 by mouth Luke s MG tablet 17:16: 00:00 daily. Medic al 29 :00 Center metFORMIN 2022-2022- No 500mg Take [address] (GLUCOPHAGE 2-20 02-20 mg by [facility] ) 500 MG 17:16: 00:00 mouth Medical tablet 29 :00 daily with Center breakfast. lisinopriL 2022-0 2022- No hypertensio 20mg QD Take [address] [facility] (PRINIVIL,Z 2-20 02-20 n by mouth Aamir es ESTRIL) 20 17:16: 00:00 daily. Medi mitul MG tablet 29 :00 [place] furosemide 2022- No 20mg QD Take [address] [facility] (LASIX) 20 2-20 02-20 by mouth Luke s MG tablet 17:16: 00:00 daily. Medic al 29 :00 [place] metFORMIN 2022- No 500mg Take [address] (GLUCOPHAGE 2-20 02-20 mg by [facility] ) 500 MG 17:16: 00:00 mouth Medical tablet 29 :00 daily with Center breakfast. lisinopriL 2022- No hypertensio 20mg QD Take [address] [facility] (PRINIVIL,Z 2-20 02-20 n by mouth Aamir es ESTRIL) 20 17:16: 00:00 daily. Medi mitul MG tablet 29 :00 [place] furosemide 2022- No 20mg QD Take [address] [facility] (LASIX) 20 2-20 02-20 by mouth Luke s MG tablet 17:16: 00:00 daily. Medic al 29 :00 [place] metFORMIN 2022- No 500mg Take [address] (GLUCOPHAGE 2-20 02-20 mg by [facility] ) 500 MG 17:16: 00:00 mouth Medical tablet 29 :00 daily with Center breakfast. lisinopriL 2022- No hypertensio 20mg QD Take [address] [facility] (PRINIVIL,Z 2-20 02-20 n by mouth Aamir es ESTRIL) 20 17:16: 00:00 daily. Medi mitul MG tablet 29 :00 Center furosemide 2022- No 20mg QD Take [address] [facility] (LASIX) 20 2-20 02-20 by mouth Luke s MG tablet 17:16: 00:00 daily. Medic al 29 :00 [place] metFORMIN 2022- No 500mg Take [address] (GLUCOPHAGE 2-20 02-20 mg by [facility] ) 500 MG 17:16: 00:00 mouth Medical tablet 29 :00 daily with Center breakfast. metoprolol 0 2023- Yes 50mg Q.5D Take [address] [facility] tartrate 2-20 02-20 tablet (50 [facility] (LOPRESSOR) 00:00: 23:59 mg total) Medical 50 MG 00 :00 by mouth 2 Center tablet (two) times daily. metoprolol 2023- Yes 50mg Q.5D Take [address] [facility] tartrate 2-20 02-20 tablet (50 [facility] (LOPRESSOR) 00:00: 23:59 mg total) Medical 50 MG 00 :00 by mouth 2 Center tablet (two) times daily. metoprolol 2023- Yes 50mg Q.5D Take [address] [facility] tartrate 2-20 02-20 tablet (50 [facility] (LOPRESSOR) 00:00: 23:59 mg total) Medical 50 MG 00 :00 by mouth 2 Center tablet (two) times daily. metoprolol 2023- Yes 50mg Q.5D Take [address] [facility] [address] tartrate 2-20 02-20 tablet (50 [facility] (LOPRESSOR) 00:00: 23:59 mg total) Medical 50 MG 00 :00 by mouth 2 Center tablet (two) times daily. metoprolol 2023- Yes 50mg Q.5D Take [address] [facility] tartrate 2-20 02-20 tablet (50 [facility] (LOPRESSOR) 00:00: 23:59 mg total) Medical 50 MG 00 :00 by mouth 2 Center tablet (two) times daily. metoprolol 2023- Yes 50mg Q.5D Take [address] [facility] tartrate 2-20 02-20 tablet (50 [facility] (LOPRESSOR) 00:00: 23:59 mg total) Medical 50 MG 00 :00 by mouth 2 Center tablet (two) times daily. metoprolol 2023- Yes 50mg Q.5D Take [address] [facility] tartrate 2-20 02-20 tablet (50 [facility] (LOPRESSOR) 00:00: 23:59 mg total) Medical 50 MG 00 :00 by mouth 2 Center tablet (two) times daily. metoprolol 2023- Yes 50mg Q.5D Take [address] [facility] tartrate 2-20 02-20 tablet (50 [facility] (LOPRESSOR) 00:00: 23:59 mg total) Medical 50 MG 00 :00 by mouth 2 Center tablet (two) times daily. metoprolol 2023- Yes 50mg Q.5D Take [address] [facility] tartrate 2-20 02-20 tablet (50 [facility] (LOPRESSOR) 00:00: 23:59 mg total) Medical 50 MG 00 :00 by mouth 2 Center tablet (two) times daily. ciprofloxac 2022- No 500mg Q.5D Take [address] in HCl 2-20 02-25 tablet [facility] (CIPRO) 500 00:00: 23:59 (500 mg Me dical MG tablet 00 :00 total) by Cente r mouth 2 (two) times daily for 5 days START 2 days before urology appointmen t. ciprofloxac 2022- Yes 500mg Q.5D Take [address] in HCl 2-20 02-25 tablet [facility] (CIPRO) 500 00:00: 23:59 (500 mg Me dical MG tablet 00 :00 total) by Cente r mouth 2 (two) times daily for 5 days START 2 days before urology appointmen t. ciprofloxac 2022- No 500mg Q.5D Take [address] in HCl 2-20 02-25 tablet [facility] (CIPRO) 500 00:00: 23:59 (500 mg Me dical MG tablet 00 :00 total) by Cente r mouth 2 (two) times daily for 5 days START 2 days before urology appointmen t. ciprofloxac 2022- No 500mg Q.5D Take [address] in HCl 2-20 02-25 tablet [facility] (CIPRO) 500 00:00: 23:59 (500 mg Me dical MG tablet 00 :00 total) by Cente r mouth 2 (two) times daily for 5 days START 2 days before urology appointmen t. ciprofloxac 0 2022- No 500mg Q.5D Take [address] in HCl 2-20 02-25 tablet [facility] (CIPRO) 500 00:00: 23:59 (500 mg Me dical MG tablet 00 :00 total) by Cente r mouth 2 (two) times daily for 5 days START 2 days before urology appointmen t. ciprofloxac 2022- No 500mg Q.5D Take [address] in HCl 2-20 02-25 tablet [facility] (CIPRO) 500 00:00: 23:59 (500 mg Me dical MG tablet 00 :00 total) by Cente r mouth 2 (two) times daily for 5 days START 2 days before urology appointmen t. ciprofloxac 2022-0 2023- No 500mg Q.5D Take [address] in HCl 2-20 02-25 tablet [facility] (CIPRO) 500 00:00: 23:59 (500 mg Me dical MG tablet 00 :00 total) by Cente r mouth 2 (two) times daily for 5 days START 2 days before urology appointmen t. ciprofloxac 2022-0 2023- No 500mg Q.5D Take [address] in HCl 2-20 02-25 tablet [facility] (CIPRO) 500 00:00: 23:59 (500 mg Me dical MG tablet 00 :00 total) by Cente r mouth 2 (two) times daily for 5 days START 2 days before urology appointmen t. ciprofloxac 2022-0 2022- No 500mg Q.5D Take [address] in HCl 2-20 02-25 tablet [facility] (CIPRO) 500 00:00: 23:59 (500 mg Me dical MG tablet 00 :00 total) by Cente r mouth 2 (two) times daily for 5 days START 2 days before urology appointmen t. metFORMIN 2022-0 Yes 500mg Take [address] [facility] (GLUCOPHAGE 2-09 mg by [facility] ) 500 MG 01:56: mouth Medical tablet 39 daily with Center breakfast. pantoprazol 2022-0 Yes 40mg QD Take [address] [facility] e 2-09 by mouth [facility] (PROTONIX) 01:56: daily. Medic al 40 MG 39 Center tablet loperamide 2022-0 Yes 2mg Q.5D Take [address] (Imodium 2-09 by mouth 2 [facility] A-D) 2 mg 01:56: (two) Medical capsule 39 times Center daily. ferrous 3-0 Yes 325mg Take 325 [facility] sulfate 325 2-09 mg by [facility] (65 FE) MG 01:56: mouth Medica l tablet 39 daily with Center breakfast. metFORMIN 3-0 Yes 500mg Take [address] [facility] [address] (GLUCOPHAGE 2-09 mg by [facility] ) 500 MG 01:56: mouth Medical tablet 39 daily with Center breakfast. pantoprazol 3-0 Yes 40mg QD Take [address] [facility] e 2-09 by mouth [facility] (PROTONIX) 01:56: daily. Medic al 40 MG 39 Center tablet loperamide 3-0 Yes 2mg Q.5D Take [address] (Imodium 2-09 by mouth 2 [facility] A-D) 2 mg 01:56: (two) Medical capsule 39 times Center daily. ferrous 2023-0 Yes 325mg Take 325 [facility] sulfate 325 2-09 mg by [facility] (65 FE) MG 01:56: mouth Medica l tablet 39 daily with Center breakfast. lisinopriL 2023-0 Yes hypertensio 20mg QD Take [address] [facility] (PRINIVIL,Z 2-09 n by mouth [facility] ESTRIL) 20 01:56: daily. Medic al MG tablet 29 Center furosemide 3-0 Yes 20mg QD Take [address] (LASIX) 20 2-09 by mouth [facility] MG tablet 01:56: daily. Medica l 29 Center docusate 3-0 Yes 100mg QD Take [address] [facility] [address] sodium 2-09 mg by [facility] (COLACE) 01:56: mouth Medical 100 MG 29 daily. Center capsule tamsulosin 3-0 Yes .4mg QD Take 0.[address] [facility] [address] (FLOMAX) 2-09 mg by [facility] 0.4 mg Cap 01:56: mouth Medica l 24 hr 29 daily. Center capsule lisinopriL 3-0 Yes hypertensio 20mg QD Take [address] [facility] (PRINIVIL,Z 2-09 n by mouth [facility] ESTRIL) 20 01:56: daily. Medic al MG tablet 29 Center furosemide 3-0 Yes 20mg QD Take [address] (LASIX) 20 2-09 by mouth [facility] MG tablet 01:56: daily. Medica l 29 Center docusate 2023-0 Yes 100mg QD Take [address] [address] sodium 2-09 mg by [facility] (COLACE) 01:56: mouth Medical 100 MG 29 daily. Center capsule tamsulosin 2023-0 Yes .4mg QD Take 0.[address] [facility] [address] (FLOMAX) 2-09 mg by [facility] 0.4 mg Cap 01:56: mouth Medica l 24 hr 29 daily. Center capsule loperamide 2023-0 Yes 2mg Q.5D Take [address] [facility] [address] [facility] (Imodium 1-24 by mouth 2 [facility] A-D) 2 mg 11:42: (two) Medical capsule 22 times Center daily. loperamide 2023-0 Yes 2mg Q.5D Take [address] [facility] [address] [facility] (Imodium 1-24 by mouth 2 [facility] A-D) 2 mg 11:42: (two) Medical capsule 22 times Center daily. loperamide 2023-0 Yes 2mg Q.5D Take [address] [facility] [address] (Imodium 1-24 by mouth 2 [facility] A-D) 2 mg 11:42: (two) Medical capsule 22 times Center daily. lisinopriL 3-0 Yes hypertensio 20mg QD Take [address] [facility] (PRINIVIL,Z 1-24 n by mouth [facility] ESTRIL) 20 11:42: daily. Medic al MG tablet 15 Center furosemide 2022-0 Yes 20mg QD Take [address] (LASIX) 20 1-24 by mouth [facility] MG tablet 11:42: daily. Medica l 15 Center metFORMIN 2022-0 Yes 500mg Take [address] [facility] [address] (GLUCOPHAGE 1-24 mg by [facility] ) 500 MG 11:42: mouth Medical tablet 15 daily with Center breakfast. pantoprazol 3-0 Yes 40mg QD Take [address] [facility] e 1-24 by mouth [facility] (PROTONIX) 11:42: daily. Medic al 40 MG 15 Center tablet tamsulosin 2022-0 Yes .4mg QD Take 0.[address] [facility] [address] (FLOMAX) 1-24 mg by [facility] 0.4 mg Cap 11:42: mouth Medica l 24 hr 15 daily. Center capsule ferrous 2022-0 Yes 325mg Take 325 [facility] sulfate 325 1-24 [facility] (65 FE) MG 11:42: mouth Medica l tablet 15 daily with Center breakfast. lisinopriL 3-0 Yes hypertensio 20mg QD Take [address] [facility] (PRINIVIL,Z 1-24 n by mouth [facility] ESTRIL) 20 11:42: daily. Medic al MG tablet 15 Center furosemide 3-0 Yes 20mg QD Take [address] (LASIX) 20 1-24 by mouth [facility] MG tablet 11:42: daily. Medica l 15 Center metFORMIN 2023-0 Yes 500mg Take [address] [facility] ([facility] ) 500 MG 11:42: mouth Medical tablet 15 daily with Center breakfast. pantoprazol 2022-0 Yes 40mg QD Take [address] [facility] (PROTONIX) 11:42: daily. Medic al 40 MG 15 Center tablet tamsulosin 2022-0 Yes .4mg QD Take 0.[address] [facility] (FLOMAX) 1-24 [facility] 0.4 mg Cap 11:42: mouth Medica l 24 hr 15 daily. Center capsule ferrous 2022-0 Yes 325mg Take 325 [facility] sulfate 325 [facility] (65 FE) MG 11:42: mouth Medica l tablet 15 daily with Center breakfast. lisinopriL 0 Yes hypertensio 20mg QD Take [address] [facility] (PRINIVIL,Z 1-24 n by mouth Luke s ESTRIL) 20 11:42: daily. Medic al MG tablet 15 Center furosemide 0 Yes 20mg QD Take [address] (LASIX) 20 1-24 [facility] MG tablet 11:42: daily. Medica l 15 Center metFORMIN 0 Yes 500mg Take [address] [facility] (GLUCOPHAGE 1-24 mg by [facility] ) 500 MG 11:42: mouth Medical tablet 15 daily with Center breakfast. pantoprazol 2022-0 Yes 40mg QD Take [address] [facility] 1-[facility] (PROTONIX) 11:42: daily. Medic al 40 MG 15 Center tablet tamsulosin 0 Yes .4mg QD Take 0.[address] [facility] (FLOMAX) 1-24 mg [facility] 0.4 mg Cap 11:42: mouth Medica l 24 hr 15 daily. Center capsule ferrous 2022-0 Yes 325mg Take 325 [facility] sulfate 325 1-[facility] (65 FE) MG 11:42: mouth Medica l tablet 15 daily with Center breakfast. lisinopriL 2021-09 Yes hypertensio 20mg QD Take [address] [facility] (PRINIVIL,Z 1-04 n by mouth Luke s ESTRIL) 20 11:22: daily. Medic al MG tablet 02 Center furosemide 2021-09 Yes 20mg QD Take [address] [facility] (LASIX) 20 1-04 [facility] MG tablet 11:22: daily. Medica l 02 [facility] 2021-09 Yes 100mg QD Take [address] [facility] sodium 1-04 mg by [facility] (COLACE) 11:22: mouth Medical 100 MG 02 daily. [place] capsule metFORMIN 2021-09 Yes 500mg Take [address] [facility] (GLUCOPHAGE 1-04 mg [facility] ) 500 MG 11:22: mouth Medical tablet 02 daily with Center breakfast. lisinopriL 2021-09 Yes hypertensio 20mg QD Take [address] [facility] (PRINIVIL,Z 1-04 n by mouth Luke s ESTRIL) 20 11:22: daily. Medic al MG tablet 02 [place] furosemide 2021-09 Yes 20mg QD Take [address] (LASIX) 20 104 by [facility] MG tablet 11:22: daily. Medica l 02 [facility] 2021-09 Yes 100mg QD Take [address] [facility] [address] sodium 1-04 mg by [facility] (COLACE) 11:22: mouth Medical 100 MG 02 daily. [place] capsule metFORMIN 2021-09 Yes 500mg Take [address] [facility] (GLUCOPHAGE 1-04 mg [facility] ) 500 MG 11:22: mouth Medical tablet 02 daily with Center breakfast. lisinopriL 2021-09 Yes hypertensio 20mg QD Take [address] [facility] (PRINIVIL,Z 1-04 n by mouth Luke s ESTRIL) 20 11:22: daily. Medic al MG tablet 02 [place] furosemide 2021-09 Yes 20mg QD Take [address] (LASIX) 20 04 by [facility] MG tablet 11:22: daily. Medica l 02 [facility] 2021-09 Yes 100mg QD Take [address] [address] sodium 1-04 mg by [facility] (COLACE) 11:22: mouth Medical 100 MG 02 daily. [place] capsule metFORMIN 2021-09 Yes 500mg Take [address] [facility] (GLUCOPHAGE 1-04 mg by [facility] ) 500 MG 11:22: mouth Medical tablet 02 daily with Center breakfast. lisinopriL 2021-09 Yes hypertensio 20mg QD Take [address] [facility] (PRINIVIL,Z 1-04 n by mouth Luke s ESTRIL) 20 11:22: daily. Medic al MG tablet 02 [place] furosemide 2021-09 Yes 20mg QD Take [address] (LASIX) 20 1-04 [facility] MG tablet 11:22: daily. Medica l 02 [place] docusate 2021-09 Yes 100mg QD Take [address] [facility] [address] sodium 1-04 mg by [facility] (COLACE) 11:22: mouth Medical 100 MG 02 daily. [place] capsule metFORMIN 2021-09 Yes 500mg Take [address] [facility] (GLUCOPHAGE 1-04 mg [facility] ) 500 MG 11:22: mouth Medical tablet 02 daily with Center breakfast. lisinopriL 2021-09 Yes hypertensio 20mg QD Take [address] [facility] (PRINIVIL,Z 1-04 n by mouth Luke s ESTRIL) 20 11:22: daily. Medic al MG tablet 02 [place] furosemide 2021-09 Yes 20mg QD Take [address] (LASIX) 20 1-04 [facility] MG tablet 11:22: daily. Medica l 02 [place] docusate 2021-09 Yes 100mg QD Take [address] [address] sodium 1-04 mg by [facility] (COLACE) 11:22: mouth Medical 100 MG 02 daily. [place] capsule metFORMIN 2021-09 Yes 500mg Take [address] [facility] (GLUCOPHAGE 1-04 mg [facility] ) 500 MG 11:22: mouth Medical tablet 02 daily with Center breakfast. docusate 2021-09 Yes 100mg QD Take [address] sodium 1-04 mg by [facility] (COLACE) 11:22: mouth Medical 100 MG 02 daily. [place] capsule docusate 2021-09 Yes 100mg QD Take [address] sodium 1-04 mg by [facility] (COLACE) 11:22: mouth Medical 100 MG 02 daily. [place] capsule docusate 2021-09 Yes 100mg QD Take [address] sodium 1-04 mg by [facility] (COLACE) 11:22: mouth Medical 100 MG 02 daily. [place] capsule Lisinopril Yes [id number] 20mg Take 1 K elsey 20 MG oral 6-07 tablet (20 Sey bold Tablet 00:00: mg total) 00 by mouth daily Lisinopril Yes [id number] 10mg Take 1 K elsey 10 MG oral 5-25 tablet (10 Sey bold Tablet 00:00: mg total) 00 by mouth daily Metformin Yes [id number] 500mg Take 1 K elsey HCl 500 MG 5-25 tablet Seybold oral Tablet 00:00: (500 mg 00 total) by mouth daily (with breakfast) Metformin Yes [id number] 500mg Take 1 K elsey HCl 500 MG 5-25 tablet Seybold oral Tablet 00:00: (500 mg 00 total) by mouth daily (with breakfast) Lisinopril 2021- No [id number] 10mg Take 1 Charo 10 MG oral 5-25 02-23 tablet (10 Se ybold Tablet 00:00: 00:00 mg total) 00 :00 by mouth daily Pravastatin Pravastatin Yes Na Owens 1 tablet Common Sodium Sodium 12-05 Spirit 00:00: - [facility] Amlodipine Amlodipine Yes Na Owens 1 tablet Common Besylate Besylate 12-05 Spirit 00:00: - [facility] Metformin Metformin Yes Na Owens 1 tablet Common HCl HCl 12-05 with meals Spirit 00:00: - [facility] Glucometer Glucometer 2025- No Na Oewns Check BS Common Kit Kit 11-17 twice a Spirit 00:00: 00:00 day - [facility] 00 :00 [facility] Lisinopril Lisinopril Yes Na Owens 1 tablet Common [facility] - [facility] Immunizations Ordered Immunization Filled Immunization Date Status Commen ts Source Name Name Tdap- (Boostrix, 2022-02-10 Completed Charo thompson Adacel) 00:00:00 Tdap- (Boostrix, 2022-02-10 Completed Charo thompson Adacel) 00:00:00 Vital Signs Vital Name Observation Time Observation Value Comments Source HEIGHT 2022-10-12 11:45:00 172.7 cm WEIGHT 2022-10-12 11:45:00 75.297 kg WEIGHT 2022-10-27 23:35:48 82.056 kg WEIGHT 2022-10-27 23:35:48 82.056 kg WEIGHT 2022-10-27 23:35:48 82.056 kg HEIGHT 2022-10-12 11:45:00 172.7 cm WEIGHT 2022-10-12 11:45:00 75.297 kg WEIGHT 2022-06-18 06:00:00 79.289 kg WEIGHT 2022-06-17 06:00:00 82.4 kg HEIGHT 2022-06-11 19:24:00 170.2 cm WEIGHT 2022-06-11 19:24:00 79.379 kg WEIGHT 2022-06-18 06:00:00 79.289 kg WEIGHT 2022-06-17 06:00:00 82.4 kg HEIGHT 2022-06-11 19:24:00 170.2 cm WEIGHT 2022-06-11 19:24:00 79.379 kg WEIGHT 2022-06-18 06:00:00 79.289 kg WEIGHT 2022-06-17 06:00:00 82.4 kg HEIGHT 2022-06-11 19:24:00 170.2 cm WEIGHT 2022-06-11 19:24:00 79.379 kg Systolic blood 2022-02-23 15:46:00 148 mm[Hg] Charo Seybold pressure Diastolic blood 2022-02-23 15:46:00 70 mm[Hg] Kelse y Seybold pressure Heart rate 2022-02-23 15:46:00 107 /min Charo S eybold Body temperature 2022-02-23 15:46:00 36.89 Connie Parul ey Seybold Respiratory rate 2022-02-23 15:46:00 16 /min Parul ey Seybold Body height 2022-02-23 15:46:00 170.2 cm Charo S eybold Body weight 2022-02-23 15:46:00 80.287 kg Charo S eybold BMI 2022-02-23 15:46:00 27.72 kg/m2 Charo S eybold Systolic blood 2022-02-10 18:31:00 170 mm[Hg] Charo Seybold pressure Diastolic blood 2022-02-10 18:31:00 80 mm[Hg] Kelse y Seybold pressure Heart rate 2022-02-10 18:31:00 106 /min Charo S eybold Body temperature 2022-02-10 18:31:00 36.67 Connie Parul ey Seybold Respiratory rate 2022-02-10 18:31:00 14 /min Parul ey Seybold Body height 2022-02-10 18:31:00 170.2 cm Charo thompson Body weight 2022-02-10 18:31:00 81.647 kg Charo thompson BMI 2022-02-10 18:31:00 28.19 kg/m2 Charo thompson Oxygen saturation in 2022-02-10 18:31:00 99 /min Charo Doss Arterial blood by Pulse oximetry Systolic blood 2022-11-08 20:16:00 142 mm[Hg] [facility] Diastolic blood 2022-11-08 20:16:00 85 mm[Hg] [facility] Heart rate 2022-11-08 20:16:00 81 /min [facility] Respiratory rate 2022-11-08 15:30:12 18 /min [facility] Oxygen saturation in 2022-11-08 15:30:12 96 /min [facility] Arterial blood by Medical Ce nter Pulse oximetry Body temperature 2022-11-08 15:30:07 36.72 Connie [facility] Systolic blood 2022-11-03 14:34:00 138 mm[Hg] [facility] Diastolic blood 2022-11-03 14:34:00 75 mm[Hg] [facility] Heart rate 2022-11-03 14:34:00 73 /min [facility] Body temperature 2022-11-03 14:34:00 36.72 Connie [facility] Respiratory rate 2022-11-03 14:34:00 18 /min [facility] Oxygen saturation in 2022-11-03 14:34:00 99 /min [facility] Arterial blood by Medical Ce nter Pulse oximetry Heart rate 2022-11-01 04:35:42 86 /min [facility] Respiratory rate 2022-11-01 04:35:42 18 /min [facility] Oxygen saturation in 2022-11-01 04:35:42 97 /min [facility] Arterial blood by Medical Ce nter Pulse oximetry Body temperature 2022-11-01 04:35:04 37.06 Connie [facility] Systolic blood 2022-11-01 04:34:45 165 mm[Hg] [facility] Diastolic blood 2022-11-01 04:34:45 92 mm[Hg] [facility] Body weight 2022-10-27 23:35:48 82.056 kg [facility] BMI 2022-10-27 23:35:48 27.51 kg/m2 [facility] Body height 2022-10-27 12:27:00 172.7 cm [facility] Body height 2022-10-12 11:45:00 172.7 cm [facility] Body weight 2022-10-12 11:45:00 75.297 kg [facility] BMI 2022-10-12 11:45:00 25.24 kg/m2 [facility] Heart rate 2022-06-20 19:34:07 94 /min [facility] Respiratory rate 2022-06-20 19:34:07 18 /min [facility] Oxygen saturation in 2022-06-20 19:34:07 98 /min [facility] Arterial blood by Medical Ce nter Pulse oximetry Body temperature 2022-06-20 19:33:10 36.78 Connie [facility] Systolic blood 2022-06-20 19:33:00 125 mm[Hg] [facility] Diastolic blood 2022-06-20 19:33:00 70 mm[Hg] [facility] Body weight 2022-06-18 06:00:00 79.289 kg [facility] BMI 2022-06-18 06:00:00 27.38 kg/m2 [facility] Body height 2022-06-11 19:24:00 170.2 cm [facility] Procedures Procedure Date / Time Performing Clinician Source Performed URINE CULTURE 2022-11-08 20:09:00 Reyes Baer [facility] POCT-GLUCOSE METER 2022-11-08 15:31:00 Stalin Grace [facility] POCT-GLUCOSE METER 2022-11-08 12:06:00 Stalin Grace [facility] POCT-GLUCOSE METER 2022-11-08 07:50:00 Dilip [facility] CBC W/PLT COUNT & AUTO 2022-11-08 03:38:00 Edgar Terry [facility] BASIC METABOLIC PANEL 2022-11-08 03:38:00 Dilip, naima [facility] CBC W/PLT COUNT & AUTO 2022-11-08 03:38:00 Edgar Terry [facility] POCT-GLUCOSE METER 2022-11-07 23:22:00 Dilip [facility] POCT-GLUCOSE METER 2022-11-07 16:58:00 Dilip [facility] POCT-GLUCOSE METER 2022-11-07 11:24:00 Dilip [facility] POCT-GLUCOSE METER 2022-11-07 07:24:00 Dilip [facility] BASIC METABOLIC PANEL 2022-11-07 05:28:00 Edgar Terry [facility] CBC W/PLT COUNT & AUTO 2022-11-07 05:28:00 Edgar Terry [facility] CBC W/PLT COUNT & AUTO 2022-11-07 05:28:00 Mara Edgarparas Alexander [facility] CT ABDOMEN/PELVIS WITHOUT IV 2022-11-06 23:58:00 Rangel Scott azalea [facility] POCT-GLUCOSE METER 2022-11-06 21:17:00 Dilip [facility] POCT-GLUCOSE METER 2022-11-06 16:10:00 Dilip, [facility] URINALYSIS WITH MICROSCOPIC 2022-11-06 14:22:00 Gael Baron [facility] IF INDICATED [facility] URINALYSIS MICROSCOPIC 2022-11-06 14:22:00 Chantell Baron CH [facility] XR ABDOMEN/KUB 1 VIEW 2022-11-06 13:41:00 Vera Ribera [facility] POCT-GLUCOSE METER 2022-11-06 12:06:00 Dilip [facility] POCT-GLUCOSE METER 2022-11-06 07:20:00 Dilip, [facility] US RENAL COMPLETE 2022-11-06 04:58:00 Dilip, [facility] BASIC METABOLIC PANEL 2022-11-06 03:55:00 Edgar Terry [facility] CBC W/PLT COUNT & AUTO 2022-11-06 03:55:00 Mara Edgar [facility] MAGNESIUM 2022-11-06 03:55:00 Mara [facility] PHOSPHORUS 2022-11-06 03:55:00 Mara [facility] CBC W/PLT COUNT & AUTO 2022-11-06 03:55:00 Mara [facility] POCT-GLUCOSE METER 2022-11-06 00:12:00 Dilip [facility] POCT-GLUCOSE METER 2022-11-05 17:55:00 Dilip [facility] CREATININE PERITONEAL FLUID 2022-11-05 14:29:00 Fozia [facility] BASIC METABOLIC PANEL 2022-11-05 14:27:00 Fozia [facility] BLOOD GAS, VENOUS 2022-11-05 14:27:00 [facility] POCT-GLUCOSE METER 2022-11-05 12:04:00 Dilip [facility] POCT-GLUCOSE METER 2022-11-05 05:53:00 Dilip, [facility] BASIC METABOLIC PANEL 2022-11-05 03:29:00 Edgar Terry [facility] CBC W/PLT COUNT & AUTO 2022-11-05 03:29:00 Mara Edgar [facility] MAGNESIUM 2022-11-05 03:29:00 Mara Edgar [facility] PHOSPHORUS 2022-11-05 03:29:00 Mara [facility] CBC W/PLT COUNT & AUTO 2022-11-05 03:29:00 [facility] PREPARE LEUKO-REDUCED RBC 2022-11-05 01:59:00 DilipStalin [facility] POCT-GLUCOSE METER 2022-11-04 23:03:00 Dilip [facility] BASIC METABOLIC PANEL 2022-11-04 17:18:00 Chantell Baron [facility] XR ABDOMEN/KUB 1 VIEW 2022-11-04 17:02:[address] [facility] POCT-GLUCOSE METER 2022-11-04 15:48:00 Dilip [facility] TISSUE EXAM 2022-11-04 11:02:00 Ahumada, [facility] ANESTHESIA SPINAL BLOCK 2022-11-04 09:03:39 Aubrey Clancy [facility] LAPAROSCOPY, WITH TOTAL 2022-11-04 08:00:00 Ahumada, [facility] COLETNOMY [facility] COLECTOMY, TOTAL 2022-11-04 07:45:00 Ahumada, [facility] CYSTOSCOPY 2022-11-04 07:45:00 Ahumada, [facility] BASIC METABOLIC PANEL 2022-11-04 04:19:00 Jerrod Beasley [facility] CBC (HEMOGRAM ONLY) 2022-11-04 04:19:00 Dilip [facility] PROTHROMBIN TIME/INR 2022-11-04 04:19:00 Dilip [facility] MAGNESIUM 2022-11-04 04:19:00 Dilip [facility] MISCELLANEOUS LAB ORDER 2022-11-03 20:56:00 Fozia [facility] FERRITIN 2022-11-03 20:56:00 Fozia [facility] IRON, TIBC, % SAT. (WITHOUT 2022-11-03 20:56:00 Fozia [facility] FERRITIN) [facility] CBC (HEMOGRAM ONLY) 2022-11-03 20:56:00 Mari Owen [facility] SARS-COV2/RT-PCR ([facility] & REF 2022-11-03 17:53:00 Edgar Terry [facility] LABS) [facility] URINE PROTEIN 2022-11-03 17:53:00 Fozia [facility] ELECTROPHORESIS, 24 [facility] TRANSFUSE LEUKO-REDUCED RED 2022-11-03 15:37:00 [facility] PREPARE LEUKO-REDUCED RBC 2022-11-03 15:20:00 [facility]KO-REDUCED RED 2022-11-03 11:42:[address] [facility] PREPARE LEUKO-REDUCED RBC 2022-11-03 11:22:00 Stalin Grace [facility] KAPPA / LAMBDA LIGHT CHAINS, 2022-11-03 04:26:[address] [facility] GLOMERULAR BASEMENT MEMBRANE 2022-11-03 04:26:00 Fozia [facility] ANTIBODY [facility] CBC W/PLT COUNT & AUTO 2022-11-03 04:26:00 Román Laureano [facility] DIFFERENTIAL [facility] BASIC METABOLIC PANEL 2022-11-03 04:26:00 Julio C Laureanosan juan bautista Sachin [facility] MAGNESIUM 2022-11-03 04:26:00 Fozia [facility] HEMOGLOBIN A1C 2022-11-03 04:26:00 Fozia [facility] PROTEIN ELECTROPHORESIS, 2022-11-03 04:26:[address] [facility] SERUM IMMUNOTYPING 2022-11-03 04:26:00 Fozia [facility] TYPE AND SCREEN, AUTOMATED 2022-11-03 04:26:00 Georgi [facility] CBC W/PLT COUNT & AUTO 2022-11-03 04:26:00 Georgi [facility] BASIC METABOLIC PANEL 2022-11-02 12:17:00 Chantell Baron [facility] HEMOGLOBIN AND HEMATOCRIT 2022-11-02 12:17:00 Georgi [facility] MICROALBUMIN, RANDOM URINE 2022-11-02 12:17:00 Katie Baron i [facility] MAGNESIUM 2022-11-02 12:17:00 Fozia [facility] LIPID PANEL 2022-11-02 12:17:00 Fozia [facility] US RENAL COMPLETE 2022-11-02 06:50:00 Neha Howe [facility] CBC W/PLT COUNT & AUTO 2022-11-02 04:47:00 Georgi [facility] BASIC METABOLIC PANEL 2022-11-02 04:47:00 Georgi [facility] PREALBUMIN 2022-11-02 04:47:00 Brayden [facility] HEPATIC FUNCTION PANEL 2022-11-02 04:47:[address] [facility] HEPATITIS PANEL, ACUTE 2022-11-02 04:47:00 Fozia [facility] HC LAB HIV-1 AG W/HIV-1&2 AB 2022-11-02 04:47:00 Fozia [facility] COMPLEMENT COMPONENT C4 2022-11-02 04:47:00 Fozia [facility] ANTI-NUCLEAR ANTIBODY (KIARA) 2022-11-02 04:47:00 Fozia [facility] RPR 2022-11-02 04:47:00 Fozia Sanchay [facility] CBC W/PLT COUNT & AUTO 2022-11-02 04:47:00 [facility] URINALYSIS WITH MICROSCOPIC 2022-11-01 21:58:00 [facility] IF INDICATED [facility] CREATININE, RANDOM URINE 2022-11-01 21:58:00 [facility] CHLORIDE, RANDOM URINE 2022-11-01 21:58:00 [facility] UREA NITROGEN, RANDOM URINE 2022-11-01 21:58:00 [facility] URINALYSIS MICROSCOPIC 2022-11-01 21:58:00 [facility] PROTEIN, RANDOM URINE 2022-11-01 21:58:00 [facility] POCT-GLUCOSE METER 2022-11-01 21:24:00 [facility] 2022-11-01 16:23:00 Georgi [facility] POCT-GLUCOSE METER 2022-11-01 13:09:00 [facility]SE METER 2022-11-01 08:15:00 [facility] CBC W/PLT COUNT & AUTO 2022-11-01 04:18:00 [facility]OLIC PANEL 2022-11-01 04:18:00 [facility] CBC W/PLT COUNT & AUTO 2022-11-01 04:18:00 [facility] MAGNESIUM 2022-11-01 04:18:00 Georgi [facility] URIC ACID 2022-11-01 04:18:00 [facility]SE [facility] 2022-10-31 21:09:00 Georgi [facility] POCT-GLUCOSE METER 2022-10-31 10:40:00 GeorgiRomán mcqueen [facility] POCT-GLUCOSE METER 2022-10-31 08:35:00 GeorgiRomán mcqueen Sachin [facility] CBC W/PLT COUNT & AUTO 2022-10-31 05:28:00 GeorgiRomán mcqueen [facility] BASIC METABOLIC PANEL 2022-10-31 05:28:00 GeorgiRomán mcqueen [facility] CBC W/PLT COUNT & AUTO 2022-10-31 05:28:00 GeorgiRomán mcqueen [facility] REPORT OF PROCEDURE - 2022-10-30 13:12:08 Sheikh [facility] POCT-GLUCOSE METER 2022-10-30 12:37:00 [facility] COLON[facility], WITH BIOPSY 2022-10-30 12:05:00 Antonio [facility] TISSUE EXAM 2022-10-30 12:00:00 Sheikh Zena [facility] MAGNESIUM 2022-10-30 04:22:00 [facility] CBC W/PLT COUNT & AUTO 2022-10-30 04:22:00 Barbara Livingston [facility] COMPREHENSIVE METABOLIC 2022-10-30 04:22:00 Georgi Haydeemckenna Stephenson [facility] CBC W/PLT COUNT & AUTO 2022-10-30 04:22:00 Barbara [facility] PREPARE RBC 2022-10-29 23:54:00 Agapito Mckenzie [facility] POCT-GLUCOSE METER 2022-10-29 21:24:00 Román Laureano [facility] 2D ECHO MODE W/O DOPPLER 2022-10-29 15:01:09 Paresh Higginbotham [facility] BASIC METABOLIC PANEL 2022-10-29 04:20:00 Barbara Livingston [facility] HEPATIC FUNCTION PANEL 2022-10-29 04:20:00 MikiBarbara warren [facility] MAGNESIUM 2022-10-29 04:20:00 Miki, [facility] CBC W/PLT COUNT & AUTO 2022-10-29 04:20:00 MikiBarbara warren [facility] DIFFERENTIAL [facility] CBC W/PLT COUNT & AUTO 2022-10-29 04:20:00 Miki [facility] DIFFERENTIAL [facility] HEMOGLOBIN AND HEMATOCRIT 2022-10-28 10:45:00 Román Laureano [facility] TRANSFUSE LEUKO-REDUCED RED 2022-10-28 06:10:00 Miki [facility] BLOOD CELLS [facility] MAGNESIUM 2022-10-28 04:40:00 Ervin Hammond [facility] BASIC METABOLIC PANEL 2022-10-28 04:40:00 Miki [facility] HEPATIC FUNCTION PANEL 2022-10-28 04:40:00 Miki, [facility] PROTHROMBIN TIME/INR 2022-10-28 04:40:00 Miki [facility] CBC W/PLT COUNT & AUTO 2022-10-28 04:40:00 Miki [facility] DIFFERENTIAL [facility] CBC W/PLT COUNT & AUTO 2022-10-28 04:40:00 Miki, [facility] DIFFERENTIAL [facility] POCT-GLUCOSE METER 2022-10-27 23:39:[address] [facility] SARS-COV2/RT-PCR ([facility] & REF 2022-10-27 16:32:00 Edgar Terry [facility] ECG 12-LEAD 2022-10-27 16:09:20 Ervin Hammond [facility] ECG 12-LEAD 2022-10-27 16:09:20 Unknown, Hl7 [facility] ECG 12-LEAD 2022-10-27 16:09:20 Unknown, Hl7 Doctor [facility] ED ECG INTERPRETATION 2022-10-27 16:09:00 [facility] TYPE AND SCREEN, AUTOMATED 2022-10-27 15:22:00 [facility] XR CHEST 2 VIEWS 2022-10-27 15:03:00 [facility] HIGH SENSITIVITY TROPONIN I 2022-10-27 14:52:00 [facility] B-TYPE NATRIURETIC FACTOR 2022-10-27 14:52:00 [facility] (BNP) [facility] CBC (HEMOGRAM ONLY) 2022-10-27 14:09:00 Andajuan Chentelenny Stevens [facility] BASIC METABOLIC PANEL 2022-10-27 13:59:00 Andajuan [facility] CH I [facility] COLONOSCOPY 2022-10-27 13:00:00 Ahumada, [facility] EKG-SCANNED 2022-10-27 00:00:00 Provider [facility] COLONOSCOPY 2022-10-13 13:30:00 Ahumada, [facility] MYOCARD PERFUSION - LEXISCAN 2022-10-12 00:00:00 [facility] BRAIN NATRIURETIC PEPTIDE 2022-10-08 13:33:00 [facility] D-DIMER,QUANTITATIVE 2022-10-08 13:33:00 [facility] ELECTROCARDIOGRAM COMPLETE 2022-10-08 13:30:31 B [facility] D-DIMER,QUANTITATIVE 2022-10-08 12:08:39 [facility] BRAIN NATRIURETIC PEPTIDE 2022-10-08 12:05:40 [facility] ELECTROCARDIOGRAM COMPLETE 2022-10-08 11:28:00 B [facility] AMB REF TO CARDIOLOGY [facility] 2022-09-28 16:42:33 [facility] CBC W/AUTO DIFF WITH 2022-09-28 12:11:00 [facility] COMPREHENSIVE METABOLIC 2022-09-28 12:11:00 [facility] PROTIME \\T\\ PTT 2022-09-28 12:11:00 [facility] CEA 2022-09-28 12:11:00 [facility] POCT-GLUCOSE METER 2022-06-26 11:49:00 Jamar, [facility] POCT-GLUCOSE METER 2022-06-26 07:56:00 Jamar, [facility] POCT-GLUCOSE METER 2022-06-25 21:03:00 Jamar, [facility] POCT-GLUCOSE METER 2022-06-25 15:26:00 Jamar, [facility] POCT-GLUCOSE METER 2022-06-25 11:21:00 Jamar, [facility] POCT-GLUCOSE METER 2022-06-25 07:21:00 Jamar, [facility] POCT-GLUCOSE METER 2022-06-24 21:14:00 Jamar, [facility] POCT-GLUCOSE METER 2022-06-24 15:26:00 Jamar, [facility] POCT-GLUCOSE METER 2022-06-24 11:52:00 Jamar, [facility] POCT-GLUCOSE METER 2022-06-24 08:03:00 Jamar, [facility] POCT-GLUCOSE METER 2022-06-23 22:28:00 Jamar, [facility] POCT-GLUCOSE METER 2022-06-23 16:26:00 Jamar, [facility] POCT-GLUCOSE METER 2022-06-23 11:33:00 Jamar, [facility] POCT-GLUCOSE METER 2022-06-23 08:07:00 Jamar, [facility] POCT-GLUCOSE METER 2022-06-22 21:16:00 Jamar, [facility] POCT-GLUCOSE METER 2022-06-22 16:30:00 Jamar, [facility] POCT-GLUCOSE METER 2022-06-22 12:11:00 Jamar, [facility] POCT-GLUCOSE METER 2022-06-22 07:34:00 Jamar, [facility] POCT-GLUCOSE METER 2022-06-21 22:58:00 Jamar, [facility] POCT-GLUCOSE METER 2022-06-21 17:46:00 Jamar, [facility] POCT-GLUCOSE METER 2022-06-21 12:01:00 Jamar, [facility] POCT-GLUCOSE METER 2022-06-21 08:14:00 Jamar, [facility] POCT-GLUCOSE METER 2022-06-20 21:41:00 Jamar, [facility] POCT-GLUCOSE METER 2022-06-20 20:40:00 Jamar, [facility] POTASSIUM 2022-06-20 19:32:00 Jamar, [facility] POCT-GLUCOSE METER 2022-06-20 16:04:00 Jamar, [facility] POCT-GLUCOSE METER 2022-06-20 12:16:00 Jamar, [facility] POCT-GLUCOSE METER 2022-06-20 07:40:00 Jamar, [facility] CBC W/PLT COUNT & AUTO 2022-06-20 04:12:00 Braulio [facility] DIFFERENTIAL [facility] MAGNESIUM 2022-06-20 04:12:00 Braulio [facility] PHOSPHORUS 2022-06-20 04:12:00 Braulio [facility] COMPREHENSIVE METABOLIC 2022-06-20 04:12:00 Braulio [facility] PANEL [facility] CBC W/PLT COUNT & AUTO 2022-06-20 04:12:00 Braulio [facility] POCT-GLUCOSE METER 2022-06-19 21:12:00 Jamar [facility] POTASSIUM 2022-06-19 [facility]22-06-19 [facility]22-06-19 [facility]:23[facility] 2022-06-19 [facility] AUTO 2022-06-19 04:25:00 Samantha [facility] MAGNESIUM 2022-06-19 04:25:00 Braulio [facility] PHOSPHORUS 2022-06-19 04:25:00 Braulio [facility] COMPREHENSIVE METABOLIC 2022-06-19 04:25:00 Braulio [facility] PANEL [facility] CBC W/PLT COUNT & AUTO 2022-06-19 04:25:00 Braulio Samantha [facility] S t [facility] POCT-GLUCOSE METER 2022-06-19 00:14:00 Jamar [facility] POCT-GLUCOSE METER 2022-06-18 21:17[facility] 2022-06-18 19:26[facility]-18 [facility]:26[facility]22-06-18 19:26:00 Jamar [facility] POCT-GLUCOSE METER 2022-06-18 16:09:00 [facility] POCT-GLUCOSE METER 2022-06-18 11:47[facility]00 [facility] 2022-06-18 [facility]:45[facility] 2022-06-18 06:09:00 Jamar [facility] MAGNESIUM 2022-06-18 04:10:00 Braulio, [facility] PHOSPHORUS 2022-06-18 04:10:00 Braulio, [facility] COMPREHENSIVE METABOLIC 2022-06-18 04:10:00 Braulio [facility] PANEL [facility] CBC W/PLT COUNT & AUTO 2022-06-18 04:09:00 Braulio, [facility] CBC W/PLT COUNT & AUTO 2022-06-18 04:09:00 Braulio, [facility] POCT-GLUCOSE METER 2022-06-17 23:26:00 Jamar [facility] POCT-GLUCOSE METER 2022-06-17 12:10:00 [facility] POCT-GLUCOSE METER 2022-06-17 06:15:00 [facility] CBC W/PLT COUNT & AUTO 2022-06-17 05:37:00 Braulio [facility] MAGNESIUM 2022-06-17 05:37:00 Braulio [facility] PHOSPHORUS 2022-06-17 05:37:00 Braulio [facility] COMPREHENSIVE METABOLIC 2022-06-17 05:37:[address] [facility] CBC W/PLT COUNT & AUTO 2022-06-17 05:37:00 Braulio [facility] POCT-GLUCOSE METER 2022-06-17 00:11:00 Jamar [facility] PREPARE LEUKO-REDUCED RBC 2022-06-16 23:54:00 Braulio [facility] I [facility] POCT-GLUCOSE METER 2022-06-16 22:41:00 Jamar [facility] POCT-GLUCOSE METER 2022-06-16 18:49:00 [facility] 2022-06-16 11:53:00 Jamar [facility] XR CHEST 1 VIEW PORTABLE / 2022-06-16 11:26:00 Bret Brooke [facility] BEDSIDE [facility] XR ABDOMEN 2 VIEWS FLAT AND 2022-06-16 09:15:00 Mari Owen [facility] UPRIGHT [facility] POCT-GLUCOSE METER 2022-06-16 05:58:00 Braulio [facility] CBC W/PLT COUNT & AUTO 2022-06-16 04:07:00 Braulio, [facility] DIFFERENTIAL [facility] CBC W/PLT COUNT & AUTO 2022-06-16 04:07:00 Braulio, [facility] DIFFERENTIAL [facility] MAGNESIUM 2022-06-16 04:06:00 Braulio [facility] PHOSPHORUS 2022-06-16 04:06:00 Braulio [facility] COMPREHENSIVE METABOLIC 2022-06-16 04:06:00 Braulio, [facility] PANEL [facility] TRIGLYCERIDES 2022-06-16 04:06:00 Braulio, [facility] CALCIUM, IONIZED 2022-06-16 04:06:[address] [facility] POCT-GLUCOSE METER 2022-06-15 23:59:00 Braulio, [facility] POCT-GLUCOSE METER 2022-06-15 19:05:00 Braulio, [facility] POCT-GLUCOSE METER 2022-06-15 18:35:00 [facility], [facility] TRANSFUSE LEUKO-REDUCED RED 2022-06-15 12:10:00 [facility], [facility] BLOOD CELLS [facility] POCT-GLUCOSE METER 2022-06-15 11:44:00 Braulio, [facility] POCT-GLUCOSE METER 2022-06-15 06:26:00 Braulio, [facility] CBC W/PLT COUNT & AUTO 2022-06-15 04:16:00 Braulio, Samantha [facility] S amber [facility] DIFFERENTIAL [facility] MAGNESIUM 2022-06-15 04:16:00 Braulio, [facility] PHOSPHORUS 2022-06-15 04:16:00 [facility], [facility] COMPREHENSIVE METABOLIC 2022-06-15 04:16:00 [facility], [facility] PANEL [facility] CBC W/PLT COUNT & AUTO 2022-06-15 04:16:00 [facility], [facility] DIFFERENTIAL [facility] POCT-GLUCOSE METER 2022-06-14 22:20:00 [facility], [facility] POCT-GLUCOSE METER 2022-06-14 17:57:00 [facility], [facility] US RENAL COMPLETE 2022-06-14 17:24:00 [facility], [facility] XR ABDOMEN/KUB 1 VIEW 2022-06-14 15:00:00 Mari Owen [facility] PORTABLE [facility] URINALYSIS WITH MICROSCOPIC 2022-06-14 14:15:00 [facility] IF INDICATED [facility] URINALYSIS MICROSCOPIC 2022-06-14 14:15:00 [facility], [facility] POCT-GLUCOSE METER 2022-06-14 11:45:00 [facility], [facility] XR ABDOMEN 2 VIEWS FLAT AND 2022-06-14 08:50:00 Mari Owen [facility] UPRIGHT [facility] SODIUM, RANDOM URINE 2022-06-14 07:34:00 Brayden [facility] CREATININE, RANDOM URINE 2022-06-14 07:34:00 Mari Owen [facility] CARCINOEMBRYONIC ANTIGEN 2022-06-14 07:34:00 Mari Owen [facility] (CEA) [facility] POCT-GLUCOSE METER 2022-06-14 06:43:00 Braulio, [facility] CBC W/PLT COUNT & AUTO 2022-06-14 03:18:00 Braulio, [facility] DIFFERENTIAL [facility] MAGNESIUM 2022-06-14 03:18:00 Braulio, [facility] PHOSPHORUS 2022-06-14 03:18:00 Braulio, [facility] COMPREHENSIVE METABOLIC 2022-06-14 03:18:00 [facility], [facility] PANEL [facility] CBC W/PLT COUNT & AUTO 2022-06-14 03:18:00 Braulio, [facility] POCT-GLUCOSE METER 2022-06-13 23:54:00 Braulio, [facility] POCT-GLUCOSE METER 2022-06-13 12:38:00 [facility], [facility] POCT-GLUCOSE METER 2022-06-13 04:51:00 Braulio, [facility] CBC W/PLT COUNT & AUTO 2022-06-13 03:42:00 Braulio, [facility] S [facility] MAGNESIUM 2022-06-13 03:42:00 Braulio, [facility] PHOSPHORUS 2022-06-13 03:42:00 Braulio, [facility] COMPREHENSIVE METABOLIC 2022-06-13 03:42:00 Braulio, [facility] CBC W/PLT COUNT & AUTO 2022-06-13 03:42:00 Braulio, [facility] (CELLAVISION MANUAL DIFF) 2022-06-13 03:42:00 Braulio, [facility] POCT-GLUCOSE METER 2022-06-12 23:38:00 Braulio, [facility] XR ABDOMEN/KUB 1 VIEW 2022-06-12 17:36:00 Elvis Zain [facility] POCT-GLUCOSE METER 2022-06-12 17:31:00 Braulio, [facility] POCT-GLUCOSE METER 2022-06-12 12:20:00 Braulio, [facility] POCT-GLUCOSE METER 2022-06-12 10:46:00 Braulio, [facility] TISSUE EXAM 2022-06-12 09:05:00 Bret Brooke [facility] SURGICALLY OBTAINED CULTURE 2022-06-12 08:49:24 Jeanette Brooke [facility] + GRAM STAIN [facility] ANAEROBIC CULTURE 2022-06-12 08:49:24 Bret Brooke [facility] AFB CULTURE + SMEAR 2022-06-12 08:49:24 Bret Brooke [facility] (NON-SPUTUM) [facility] FUNGUS CULTURE + SMEAR 2022-06-12 08:49:24 Bret Brooke [facility] SPIN/CONCENTRATION CHARGE 2022-06-12 08:49:00 Bret Brooke [facility] ABORH, MANUAL 2022-06-12 08:14:00 Yanni Casillas [facility] LAPAROTOMY, EXPLORATORY 2022-06-12 07:47:00 Bret Brooke [facility] CREATION, COLOSTOMY 2022-06-12 07:47:00 Bret Brooke [facility] SARS-COV2/RT-PCR (HS & REF 2022-06-12 07:30:00 Rangel Scott [facility] LABS) [facility] LACTIC ACID, VENOUS 2022-06-12 07:29:00 Rangel Scott [facility] TYPE AND SCREEN, AUTOMATED 2022-06-12 07:29:00 Hammad, Vish [facility] CBC W/PLT COUNT & AUTO 2022-06-12 05:21:00 Hammad [facility] BASIC METABOLIC PANEL 2022-06-12 05:21:00 Hammad [facility] MAGNESIUM 2022-06-12 05:21:[facility]22-06-12 05:21:00 Hammad [facility] HEPATIC FUNCTION PANEL 2022-06-12 05:21:00 [facility] W/[facility]T COUNT & AUTO 2022-06-12 05:21:00 Hammad [facility] POCT-GLUCOSE METER 2022-06-12 04:41:00 [facility] POCT-GLUCOSE METER 2022-06-12 01:28:00 [facility] CBC (HEMOGRAM ONLY) 2022-06-11 22:29:00 Charley [facility] BASIC METABOLIC PANEL 2022-06-11 22:29:00 [facility] PERMANENT LAB REPORT - SCAN 2022-06-11 00:00:00 Krissy Almendarez [facility] Plan of Care Planned Activity Planned Date Details Comments Source Future Scheduled 2032-10-30 Screening for malignant [facility] 00:00:00 neoplasm of colon [facility] (procedure) [code = 447280750] Future Scheduled 2032-10-30 Screening for malignant [facility] 00:00:00 neoplasm of colon [facility] (procedure) [code = 923448447] Future Scheduled 2032-10-30 Screening for malignant [facility] 00:00:00 neoplasm of colon [facility] (procedure) [code = 181388220] Future Scheduled 2032-10-30 Screening for malignant [facility] 00:00:00 neoplasm of colon [facility] (procedure) [code = 614898768] Future Scheduled 2032-10-30 Screening for malignant [facility] 00:00:00 neoplasm of colon [facility] (procedure) [code = 150902431] Future Scheduled 2032-10-30 Screening for malignant [facility] 00:00:00 neoplasm of colon [facility] (procedure) [code = 385323679] Future Scheduled 2032-10-30 Screening for malignant [facility] 00:00:00 neoplasm of colon [facility] (procedure) [code = 278472194] Future Scheduled 2032-10-30 Screening for malignant [facility] 00:00:00 neoplasm of colon [facility] (procedure) [code = 170403410] Future Scheduled 2032-10-30 Screening for malignant [facility] 00:00:00 neoplasm of colon [facility] (procedure) [code = 174436041] Future Scheduled 2032-10-30 Screening for malignant [facility] 00:00:00 neoplasm of colon [facility] (procedure) [code = 312167254] Future Scheduled 2032-10-30 Screening for malignant [facility] 00:00:00 neoplasm of colon [facility] Ce [facility] (procedure) [code = 333210254] Future Scheduled 2032-10-30 Screening for malignant [facility] 00:00:00 neoplasm of colon [facility] (procedure) [code = 051743737] Future Scheduled 2032-10-30 Screening for malignant [facility] 00:00:00 neoplasm of colon [facility] (procedure) [code = 102739386] Future Scheduled 2032-10-30 Screening for malignant [facility] 00:00:00 neoplasm of colon [facility] (procedure) [code = 338210977] Future Scheduled 2032-10-30 Screening for malignant [facility] 00:00:00 neoplasm of colon [facility] (procedure) [code = 623393934] Future Scheduled 2032-10-30 Screening for malignant [facility] 00:00:00 neoplasm of colon [facility] Ce [facility] (procedure) [code = 034982628] Future Scheduled 2032-10-30 Screening for malignant [facility] 00:00:00 neoplasm of colon [facility] Ce [facility] (procedure) [code = 589080975] Future Scheduled 2032-10-30 Screening for malignant [facility] 00:00:00 neoplasm of colon [facility] (procedure) [code = 550190589] Future Scheduled 2032-10-30 Screening for malignant [facility] 00:00:00 neoplasm of colon Medical Ce [facility] (procedure) [code = 757766881] Future Scheduled 2032-10-30 Screening for malignant [facility] 00:00:00 neoplasm of colon Medical Ce [facility]ter (procedure) [code = 945168705] Future Scheduled 2032-02-11 DTAP/TDAP/TD VACCINES [facility]00 (2 - Td or Tdap) [code Medic al Center = DTAP/TDAP/TD VACCINES (2 - Td or Tdap)] Future Scheduled 2032-02-11 DTAP/TDAP/TD VACCINES [facility] 00:00:00 (2 - Td or Tdap) [code Medic al Center = DTAP/TDAP/TD VACCINES (2 - Td or Tdap)] Future Scheduled 2032-02-11 DTAP/TDAP/TD VACCINES [facility] 00:00:00 (2 - Td or Tdap) [code Medic al Center = DTAP/TDAP/TD VACCINES (2 - Td or Tdap)] Future Scheduled 2032-02-11 DTAP/TDAP/TD VACCINES [facility] 00:00:00 (2 - Td or Tdap) [code Medic al Center = DTAP/TDAP/TD VACCINES (2 - Td or Tdap)] Future Scheduled 2032-02-11 DTAP/TDAP/TD VACCINES [facility] 00:00:00 (2 - Td or Tdap) [code Medic al Center = DTAP/TDAP/TD VACCINES (2 - Td or Tdap)] Future Scheduled 2032-02-11 DTAP/TDAP/TD VACCINES [facility] 00:00:00 (2 - Td or Tdap) [code Medic al Center = DTAP/TDAP/TD VACCINES (2 - Td or Tdap)] Future Scheduled 2032-02-11 DTAP/TDAP/TD VACCINES [facility] 00:00:00 (2 - Td or Tdap) [code Medic al Center = DTAP/TDAP/TD VACCINES (2 - Td or Tdap)] Future Scheduled 2032-02-11 DTAP/TDAP/TD VACCINES [facility] 00:00:00 (2 - Td or Tdap) [code Medic al Center = DTAP/TDAP/TD VACCINES (2 - Td or Tdap)] Future Scheduled 2032-02-11 DTAP/TDAP/TD VACCINES [facility] 00:00:00 (2 - Td or Tdap) [code Medic al Center = DTAP/TDAP/TD VACCINES (2 - Td or Tdap)] Future Scheduled 2032-02-11 DTAP/TDAP/TD VACCINES [facility] 00:00:00 (2 - Td or Tdap) [code Medic al Center = DTAP/TDAP/TD VACCINES (2 - Td or Tdap)] Future Scheduled 2032-02-11 DTAP/TDAP/TD VACCINES [facility] 00:00:00 (2 - Td or Tdap) [code Medic al Center = DTAP/TDAP/TD VACCINES (2 - Td or Tdap)] Future Scheduled 2032-02-11 DTAP/TDAP/TD VACCINES [facility] 00:00:00 (2 - Td or Tdap) [code Medic al Center = DTAP/TDAP/TD VACCINES (2 - Td or Tdap)] Future Scheduled 2032-02-11 DTAP/TDAP/TD VACCINES [facility] 00:00:00 (2 - Td or Tdap) [code Medic al Center = DTAP/TDAP/TD VACCINES (2 - Td or Tdap)] Future Scheduled 2032-02-11 DTAP/TDAP/TD VACCINES [facility] 00:00:00 (2 - Td or Tdap) [code Medic al Center = DTAP/TDAP/TD VACCINES (2 - Td or Tdap)] Future Scheduled 2032-02-11 DTAP/TDAP/TD VACCINES [facility] 00:00:00 (2 - Td or Tdap) [code Medic al Center = DTAP/TDAP/TD VACCINES (2 - Td or Tdap)] Future Scheduled 2032-02-11 DTAP/TDAP/TD VACCINES [facility] 00:00:00 (2 - Td or Tdap) [code Medic al Center = DTAP/TDAP/TD VACCINES (2 - Td or Tdap)] Future Scheduled 2032-02-11 DTAP/TDAP/TD VACCINES [facility] 00:00:00 (2 - Td or Tdap) [code Medic al Center = DTAP/TDAP/TD VACCINES (2 - Td or Tdap)] Future Scheduled 2032-02-11 DTAP/TDAP/TD VACCINES [facility] 00:00:00 (2 - Td or Tdap) [code Medic al Center = DTAP/TDAP/TD VACCINES (2 - Td or Tdap)] Future Scheduled 2032-02-11 DTAP/TDAP/TD VACCINES [facility] 00:00:00 (2 - Td or Tdap) [code Medic al Center = DTAP/TDAP/TD VACCINES (2 - Td or Tdap)] Future Scheduled 2025-11-02 Lipid panel (procedure) [facility] 00:00:00 [code = 88910551] Medical Ce nter Future Scheduled 2025-11-02 Lipid panel (procedure) [facility] 00:00:00 [code = 41131156] Medical Ce nter Future Scheduled 2025-11-02 Lipid panel (procedure) [facility] 00:00:00 [code = 23671034] Medical Ce nter Future Scheduled 2025-11-02 Lipid panel (procedure) [facility] 00:00:00 [code = 83053724] Medical Ce nter Future Scheduled 2025-11-02 Lipid panel (procedure) [facility] 00:00:00 [code = 75557403] Medical Ce nter Future Scheduled 2025-11-02 Lipid panel (procedure) [facility] 00:00:00 [code = 93359826] Medical Ce nter Future Scheduled 2025-11-02 Lipid panel (procedure) [facility] 00:00:00 [code = 39882806] Medical Ce nter Future Scheduled 2025-11-02 Lipid panel (procedure) [facility] 00:00:00 [code = 52678206] Medical Ce nter Future Scheduled 2025-11-02 Lipid panel (procedure) [facility] 00:00:00 [code = 50862256] Medical Ce nter Future Scheduled 2025-11-02 Lipid panel (procedure) [facility] 00:00:00 [code = 77632672] Medical Ce nter Future Scheduled 2025-07-06 Lipid panel (procedure) [facility] 00:00:00 [code = 58034552] Medical Ce nter Future Scheduled 2025-07-06 Lipid panel (procedure) [facility] 00:00:00 [code = 07967701] Medical Ce nter Future Scheduled 2025-07-06 Lipid panel (procedure) [facility] 00:00:00 [code = 26450528] Medical Ce nter Future Scheduled 2025-07-06 Lipid panel (procedure) [facility] 00:00:00 [code = 60633298] Medical Ce nter Future Scheduled 2025-07-06 Lipid panel (procedure) [facility] 00:00:00 [code = 04787998] Medical Ce nter Future Scheduled 2025-07-06 Lipid panel (procedure) [facility] 00:00:00 [code = 16611551] Medical Ce nter Future Scheduled 2025-07-06 Lipid panel (procedure) [facility] 00:00:00 [code = 80852011] Medical Ce nter Future Scheduled 2025-07-06 Lipid panel (procedure) [facility] 00:00:00 [code = 72414699] Medical Ce nter Future Scheduled 2025-07-06 Lipid panel (procedure) [facility] 00:00:00 [code = 66981836] Medical Ce nter Future Scheduled 2023-11-02 Urine screening for [facility] 00:00:00 protein (procedure) [facility] Center [code = 504245842] Future Scheduled 2023-11-02 Urine screening for [facility] 00:00:00 protein (procedure) [facility] Center [code = 504171801] Future Scheduled 2023-11-02 Urine screening for [facility] 00:00:00 protein (procedure) [facility] Center [code = 434547181] Future Scheduled 2023-11-02 Urine screening for [facility] 00:00:00 protein (procedure) [facility] Center [code = 714610257] Future Scheduled 2023-11-02 Urine screening for [facility] 00:00:00 protein (procedure) [facility] Center [code = 493141250] Future Scheduled 2023-11-02 Urine screening for [facility] 00:00:00 protein (procedure) [facility] Center [code = 617546049] Future Scheduled 2023-11-02 Urine screening for [facility] 00:00:00 protein (procedure) [facility] Center [code = 308406433] Future Scheduled 2023-11-02 Urine screening for [facility] 00:00:00 protein (procedure) Medical Center [code = 218832123] Future Scheduled 2023-11-02 Urine screening for [facility] 00:00:00 protein (procedure) Medical Center [code = 133029847] Future Scheduled 2023-11-02 Urine screening for [facility] 00:00:00 protein (procedure) Medical Center [code = 680001319] Future Scheduled 2023-10-[address] [facility] 00:00:00 Counseling and Medical Cente r Screening (12+) [code = Tobacco Cessation Counseling and Screening (12+)] Future Scheduled 2023-10-[address] [facility] 00:00:00 [facility]ing [facility] Medical [facility] r Screening (12+) [code = Tobacco Cessation Counseling and Screening (12+)] Future Scheduled 2023-10-[address] [facility] 00:00:00 [facility]ing and Medical Cent[facility] r Screening (12+) [code = Tobacco Cessation Counseling and Screening (12+)] Future Scheduled 2023-10-[address] [facility] 00:00:00 [facility]ing [facility] Medical Cent[facility] r Screening (12+) [code = Tobacco Cessation Counseling and Screening (12+)] Future Scheduled 2023-10-[address] [facility] 00:00:00 [facility]ing and Medical Cent[facility] r Screening (12+) [code = Tobacco Cessation Counseling and Screening (12+)] Future Scheduled 2023-10-[address] [facility] 00:00:00 Counseling and Medical Cent[facility] r Screening (12+) [code = Tobacco Cessation Counseling and Screening (12+)] Future Scheduled 2023-10-[address] [facility] 00:00:00 [facility]ing and Medical Cent[facility] r Screening (12+) [code = Tobacco Cessation Counseling and Screening (12+)] Future Scheduled 2023-10-[address] [facility] 00:00:00 Counseling and Medical Cent[facility] r Screening (12+) [code = Tobacco Cessation Counseling and Screening (12+)] Future Scheduled 2023-10-[address] [facility] 00:00:00 Counseling and Medical Cent[facility] r Screening (12+) [code = Tobacco Cessation Counseling and Screening (12+)] Future Scheduled 2023-10-[address] [facility] 00:00:00 Counseling and Medical Cente r Screening (12+) [code = Tobacco Cessation Counseling and Screening (12+)] Future Scheduled 2023-10-[address] [facility] 00:00:00 [facility]ing [facility] Medical Cent[facility] r Screening (12+) [code = Tobacco Cessation Counseling and Screening (12+)] Future Scheduled 2023-10-[address] [facility] Test 00:00:00 [facility] Screening (12+) [code = Tobacco Cessation Counseling and Screening (12+)] Future Scheduled 2023-10-[address] [facility] Test 00:00:00 [facility] (12+) [code = Tobacco Cessation Counseling and Screening (12+)] Future Scheduled 2023-10-[address] [facility] Test 00:00:00 [facility] Screening (12+) [code = Tobacco Cessation Counseling and Screening (12+)] Future Scheduled 2023-06-02 Urine screening for [facility] Test 00:00:00 protein (procedure) [facility] Center [code = [id number]] Future Scheduled 2023-06-02 Urine screening for [facility] Test 00:00:00 protein (procedure) Medical Center [code = [id number]] Future Scheduled 2023-06-02 Urine screening for [facility] Test 00:00:00 protein (procedure) [facility] Center [code = [id number]] Future Scheduled 2023-06-02 Urine screening for [facility] Test 00:00:00 protein (procedure) Medical Center [code = [id number]] Future Scheduled 2023-06-02 Urine screening for [facility] Test 00:00:00 protein (procedure) Medical Center [code = [id number]] Future Scheduled 2023-06-02 Urine screening for [facility] Test 00:00:00 protein (procedure) Medical Center [code = [id number]] Future Scheduled 2023-06-02 Urine screening for [facility] Test 00:00:00 protein (procedure) Medical Center [code = [id number]] Future Scheduled 2023-06-02 Urine screening for [facility] Test 00:00:00 protein (procedure) [facility] [code = [id number]] Future Scheduled 2023-06-02 Urine screening for [facility] Test 00:00:00 protein (procedure) [facility] [code = [id number]] Future Scheduled 2022-09-[address] [facility] Test 00:00:00 (12+) [code = Medical Center DEPRESSION SCREENING (12+)] Future Scheduled 2022-09-[address] [facility] Test 00:00:00 (12+) [code = Medical Center DEPRESSION SCREENING (12+)] Future Scheduled 2022-09-[address] [facility] Test 00:00:00 (12+) [code = Medical Center DEPRESSION SCREENING (12+)] Future Scheduled 2022-09-[address] [facility] Test 00:00:00 (12+) [code = Medical Center DEPRESSION SCREENING (12+)] Future Scheduled 2022-09-[address] [facility] Test 00:00:00 (12+) [code = Medical Center DEPRESSION SCREENING (12+)] Future Scheduled 2022-09-[address] [facility] Test 00:00:00 (12+) [code = Medical Center DEPRESSION SCREENING (12+)] Future Scheduled 2022-09-[address] [facility] Test 00:00:00 (12+) [code = Medical Center DEPRESSION SCREENING (12+)] Future Scheduled 2022-09-[address] [facility] Test 00:00:00 (12+) [code = Medical Center DEPRESSION SCREENING (12+)] Future Scheduled 2022-09-[address] [facility] Test 00:00:00 (12+) [code = Medical Center DEPRESSION SCREENING (12+)] Future Scheduled 2022-09-[address] [facility] Test 00:00:00 (12+) [code = Medical Center DEPRESSION SCREENING (12+)] Future Scheduled 2022-09-[address] [facility] Test 00:00:00 (12+) [code = Medical Center DEPRESSION SCREENING (12+)] Future Scheduled 2022-09-[address] [facility] Test 00:00:00 (12+) [code = Medical Center DEPRESSION SCREENING (12+)] Future Scheduled 2022-09-[address] [facility] Test 00:00:00 (12+) [code = Medical Center DEPRESSION SCREENING (12+)] Future Scheduled 2022-09-[address] [facility] Test 00:00:00 (12+) [code = Medical Center DEPRESSION SCREENING (12+)] Future Scheduled 2022-09-[address] [facility] Test 00:00:00 (12+) [code = Medical Center DEPRESSION SCREENING (12+)] Future Scheduled 2022-09-[address] [facility] Test 00:00:00 (12+) [code = Medical Center DEPRESSION SCREENING (12+)] Future Scheduled 2022-09-[address] [facility] Test 00:00:00 (12+) [code = Medical Center DEPRESSION SCREENING (12+)] Future Scheduled 2022-09-[address] [facility] Test 00:00:00 (12+) [code = Medical Center DEPRESSION SCREENING (12+)] Future Scheduled 2022-09-[address] [facility] Test 00:00:00 (12+) [code = Medical Center DEPRESSION SCREENING (12+)] Future Scheduled 2022-06-[address] [facility] Test 00:00:00 measurement (procedure) [facility] [code = [id number]] Future Scheduled 2022-06-[address] [facility] Test 00:00:00 measurement (procedure) [facility] [code = [id number]] Future Scheduled 2022-06-[address] [facility] Test 00:00:00 measurement (procedure) [facility] [code = [id number]] Future Scheduled 2022-06-[address] [facility] Test 00:00:00 measurement (procedure) [facility] [code = [id number]] Future Scheduled 2022-06-[address] [facility] Test 00:00:00 measurement (procedure) [facility] [code = [id number]] Future Scheduled 2022-06-[address] [facility] 00:00:00 measurement (procedure) [facility] [code = [id number]] Future Scheduled 2022-06-[address] [facility] 00:00:00 measurement (procedure) [facility] [code = [id number]] Future Scheduled 2022-06-[address] [facility] Test 00:00:00 measurement (procedure) [facility] [code = [id number]] Future Scheduled 2022-06-[address] [facility] 00:00:00 measurement (procedure) [facility] [code = [id number]] Future Scheduled 2022-06-[address] [facility] 00:00:00 measurement (procedure) [facility] [code = [id number]] Future Scheduled 2022-06-[address] [facility] Test 00:00:00 measurement (procedure) [facility] [code = [id number]] Future Scheduled 2022-06-[address] [facility] 00:00:00 measurement (procedure) [facility] [code = [id number]] Future Scheduled 2022-06-[address] [facility] Test 00:00:00 measurement (procedure) [facility] [code = [id number]] Future Scheduled 2022-06-[address] [facility] Test 00:00:00 measurement (procedure) [facility] [code = [id number]] Future Scheduled 2022-06-[address] [facility] 00:00:00 measurement (procedure) [facility] [code = [id number]] Future Scheduled 2022-06-[address] [facility] Test 00:00:00 measurement (procedure) [facility] [code = [id number]] Future Scheduled 2022-06-[address] [facility] 00:00:00 measurement (procedure) [facility] [code = [id number]] Future Scheduled 2022-06-[address] [facility] 00:00:00 measurement (procedure) [facility] [code = [id number]] Future Scheduled 2022-06-[address] [facility] 00:00:00 measurement (procedure) [facility] [code = [id number]] Future Scheduled 2022-05-20 INFLUENZA VACCINE (#1) [facility] 00:00:00 [code = INFLUENZA Medical Ce nter VACCINE (#1)] Future Scheduled 2022-05-20 INFLUENZA VACCINE (#1) [facility] 00:00:00 [code = INFLUENZA Medical Ce nter VACCINE (#1)] Future Scheduled 2022-05-20 INFLUENZA VACCINE (#1) [facility] 00:00:00 [code = INFLUENZA Medical Ce nter VACCINE (#1)] Future Scheduled 2022-05-20 INFLUENZA VACCINE (#1) [facility] 00:00:00 [code = INFLUENZA Medical Ce nter VACCINE (#1)] Future Scheduled 2022-05-20 INFLUENZA VACCINE (#1) [facility] 00:00:00 [code = INFLUENZA Medical Ce nter VACCINE (#1)] Future Scheduled 2022-05-20 INFLUENZA VACCINE (#1) [facility] 00:00:00 [code = INFLUENZA Medical Ce nter VACCINE (#1)] Future Scheduled 2022-05-20 INFLUENZA VACCINE (#1) [facility] 00:00:00 [code = INFLUENZA Medical Ce nter VACCINE (#1)] Future Scheduled 2022-05-20 INFLUENZA VACCINE (#1) [facility] 00:00:00 [code = INFLUENZA Medical Ce nter VACCINE (#1)] Future Scheduled 2022-05-20 INFLUENZA VACCINE (#1) [facility] 00:00:00 [code = INFLUENZA Medical Ce nter VACCINE (#1)] Future Scheduled 2022-05-20 INFLUENZA VACCINE (#1) [facility] 00:00:00 [code = INFLUENZA Medical Ce nter VACCINE (#1)] Future Scheduled 2022-05-20 INFLUENZA VACCINE (#1) [facility] 00:00:00 [code = INFLUENZA Medical Ce nter VACCINE (#1)] Future Scheduled 2022-05-20 INFLUENZA VACCINE (#1) [facility] 00:00:00 [code = INFLUENZA Medical Ce nter VACCINE (#1)] Future Scheduled 2022-05-20 INFLUENZA VACCINE (#1) [facility] 00:00:00 [code = INFLUENZA Medical Ce nter VACCINE (#1)] Future Scheduled 2022-05-20 INFLUENZA VACCINE (#1) [facility] 00:00:00 [code = INFLUENZA Medical Ce nter VACCINE (#1)] Future Scheduled 2022-05-20 INFLUENZA VACCINE (#1) [facility] 00:00:00 [code = INFLUENZA Medical Ce nter VACCINE (#1)] Future Scheduled 2022-05-20 INFLUENZA VACCINE (#1) [facility] 00:00:00 [code = INFLUENZA Medical Ce nter VACCINE (#1)] Future Scheduled 2022-05-20 INFLUENZA VACCINE (#1) [facility] 00:00:00 [code = INFLUENZA Medical Ce nter VACCINE (#1)] Future Scheduled 2022-05-20 INFLUENZA VACCINE (#1) [facility] 00:00:00 [code = INFLUENZA Medical Ce nter VACCINE (#1)] Future Scheduled 2022-05-20 INFLUENZA VACCINE (#1) [facility] 00:00:00 [code = INFLUENZA Medical Ce nter VACCINE (#1)] Future Scheduled 2022-01-20 COVID-19 VACCINE (4 - [facility]:00 Booster for Pfizer Medical C enter series) [code = COVID-19 VACCINE (4 - Booster for Pfizer series)] Future Scheduled 2022-01-20 COVID-19 VACCINE (4 - [facility] 00:00:00 Booster for Pfizer Medical C enter series) [code = COVID-19 VACCINE (4 - Booster for Pfizer series)] Future Scheduled 2022-01-20 COVID-19 VACCINE (4 - [facility] 00:00:00 Booster for Pfizer Medical C enter series) [code = COVID-19 VACCINE (4 - Booster for Pfizer series)] Future Scheduled 2022-01-20 COVID-19 VACCINE (4 - [facility] 00:00:00 Booster for Pfizer Medical C enter series) [code = COVID-19 VACCINE (4 - Booster for Pfizer series)] Future Scheduled 2022-01-20 COVID-19 VACCINE (4 - [facility] 00:00:00 Booster for Pfizer Medical C enter series) [code = COVID-19 VACCINE (4 - Booster for Pfizer series)] Future Scheduled 2022-01-20 COVID-19 VACCINE (4 - [facility] 00:00:00 Booster for Pfizer Medical C enter series) [code = COVID-19 VACCINE (4 - Booster for Pfizer series)] Future Scheduled 2022-01-20 COVID-19 VACCINE (4 - [facility] 00:00:00 Booster for Pfizer Medical C enter series) [code = COVID-19 VACCINE (4 - Booster for Pfizer series)] Future Scheduled 2022-01-20 COVID-19 VACCINE (4 - [facility] 00:00:00 Booster for Pfizer Medical C enter series) [code = COVID-19 VACCINE (4 - Booster for Pfizer series)] Future Scheduled 2022-01-20 COVID-19 VACCINE (4 - [facility] 00:00:00 Booster for Pfizer Medical C enter series) [code = COVID-19 VACCINE (4 - Booster for Pfizer series)] Future Scheduled 2022-01-20 COVID-19 VACCINE (4 - [facility] 00:00:00 Booster for Pfizer Medical C enter series) [code = COVID-19 VACCINE (4 - Booster for Pfizer series)] Future Scheduled 2022-01-20 COVID-19 VACCINE (4 - [facility] 00:00:00 Booster for Pfizer Medical C enter series) [code = COVID-19 VACCINE (4 - Booster for Pfizer series)] Future Scheduled 2022-01-20 COVID-19 VACCINE (4 - [facility] 00:00:00 Booster for Pfizer Medical C enter series) [code = COVID-19 VACCINE (4 - Booster for Pfizer series)] Future Scheduled 2022-01-20 COVID-19 VACCINE (4 - [facility] 00:00:00 Booster for Pfizer Medical C enter series) [code = COVID-19 VACCINE (4 - Booster for Pfizer series)] Future Scheduled 2022-01-20 COVID-19 VACCINE (4 - [facility] 00:00:00 Booster for Pfizer Medical C enter series) [code = COVID-19 VACCINE (4 - Booster for Pfizer series)] Future Scheduled 2022-01-20 COVID-19 VACCINE (4 - [facility] 00:00:00 Booster for Pfizer Medical C enter series) [code = COVID-19 VACCINE (4 - Booster for Pfizer series)] Future Scheduled 2022-01-20 COVID-19 VACCINE (4 - [facility] 00:00:00 Booster for Pfizer Medical C enter series) [code = COVID-19 VACCINE (4 - Booster for Pfizer series)] Future Scheduled 2022-01-20 COVID-19 VACCINE (4 - [facility] 00:00:00 Booster for Pfizer Medical C enter series) [code = COVID-19 VACCINE (4 - Booster for Pfizer series)] Future Scheduled 2022-01-20 COVID-19 VACCINE (4 - [facility] 00:00:00 Booster for Pfizer Medical C enter series) [code = COVID-19 VACCINE (4 - Booster for Pfizer series)] Future Scheduled 2022-01-20 COVID-19 VACCINE (4 - [facility] 00:00:00 Booster for Pfizer Medical C enter series) [code = COVID-19 VACCINE (4 - Booster for Pfizer series)] Future Scheduled 2009 SHINGLES VACCINES ([address] [facility] 00:00:00 2) [code = SHINGLES Medical Center VACCINES (1 of 2)] Future Scheduled 2009 SHINGLES VACCINES ([address] [facility] 00:00:00 2) [code = SHINGLES Medical Center VACCINES (1 of 2)] Future Scheduled 2009 SHINGLES VACCINES ([address] [facility] 00:00:00 2) [code = SHINGLES Medical Center VACCINES (1 of 2)] Future Scheduled 2009 SHINGLES VACCINES ([address] [facility] 00:00:00 2) [code = SHINGLES Medical Center VACCINES (1 of 2)] Future Scheduled 2009 SHINGLES VACCINES ([address] [facility] 00:00:00 2) [code = SHINGLES Medical Center VACCINES (1 of 2)] Future Scheduled 2009 SHINGLES VACCINES ([address] [facility] 00:00:00 2) [code = SHINGLES Medical Center VACCINES (1 of 2)] Future Scheduled 2009 SHINGLES VACCINES ([address] [facility] 00:00:00 2) [code = SHINGLES Medical Center VACCINES (1 of 2)] Future Scheduled 2009 SHINGLES VACCINES ([address] [facility] 00:00:00 2) [code = SHINGLES Medical Center VACCINES (1 of 2)] Future Scheduled 2009 SHINGLES VACCINES ([address] [facility] 00:00:00 2) [code = SHINGLES Medical Center VACCINES (1 of 2)] Future Scheduled 2009 SHINGLES VACCINES ([address] [facility] 00:00:00 2) [code = SHINGLES Medical Center VACCINES (1 of 2)] Future Scheduled 2009 SHINGLES VACCINES ([address] [facility] 00:00:00 2) [code = SHINGLES Medical Center VACCINES (1 of 2)] Future Scheduled 2009 SHINGLES VACCINES ([address] [facility] 00:00:00 2) [code = SHINGLES Medical Center VACCINES (1 of 2)] Future Scheduled 2009 SHINGLES VACCINES ([address] [facility] 00:00:00 2) [code = SHINGLES Medical Center VACCINES (1 of 2)] Future Scheduled 2009 SHINGLES VACCINES ([address] [facility] 00:00:00 2) [code = SHINGLES Medical Center VACCINES (1 of 2)] Future Scheduled 2009 SHINGLES VACCINES ([address] [facility] 00:00:00 2) [code = SHINGLES Medical Center VACCINES (1 of 2)] Future Scheduled 2009 SHINGLES VACCINES ([address] [facility] 00:00:00 2) [code = SHINGLES Medical Center VACCINES (1 of 2)] Future Scheduled 2009 SHINGLES VACCINES ([address] [facility] 00:00:00 2) [code = SHINGLES Medical Center VACCINES (1 of 2)] Future Scheduled 2009 SHINGLES VACCINES ([address] [facility] 00:00:00 2) [code = SHINGLES Medical Center VACCINES (1 of 2)] Future Scheduled 2009 SHINGLES VACCINES ([address] [facility] 00:00:00 2) [code = SHINGLES Medical Center VACCINES (1 of 2)] Future Scheduled 1977 HEPATITIS C [facility]CRE[facility]ING [facility] 00:00:00 [code = HEPATITIS C Medical Center SCREENING] Future Scheduled 1977 HEPATITIS C [facility] 00:00:00 [code = HEPATITIS C Medical Center SCREENING] Future Scheduled 1977 HEPATITIS C [facility] 00:00:00 [code = HEPATITIS C Medical Center SCREENING] Future Scheduled 1977 HEPATITIS C [facility] 00:00:00 [code = HEPATITIS C Medical Center SCREENING] Future Scheduled 1977 HEPATITIS C [facility] 00:00:00 [code = HEPATITIS C Medical Center SCREENING] Future Scheduled 1977 HEPATITIS C [facility] 00:00:00 [code = HEPATITIS C Medical Center SCREENING] Future Scheduled 1977 HEPATITIS C [facility] 00:00:00 [code = HEPATITIS C Medical Center SCREENING] Future Scheduled 1977 HEPATITIS C [facility] 00:00:00 [code = HEPATITIS C Medical Center SCREENING] Future Scheduled 1977 HEPATITIS C [facility] 00:00:00 [code = HEPATITIS C Medical Center SCREENING] Future Scheduled [address] [facility] 00:00:00 Counseling and Medical Cent[facility] r Screening (12+) [code = Tobacco Cessation Counseling and Screening (12+)] Future Scheduled [address] [facility] 00:00:00 Counseling and Medical Cent[facility] r Screening (12+) [code = Tobacco Cessation Counseling and Screening (12+)] Future Scheduled [address] [facility] 00:00:00 Counseling and Medical Cent[facility] r Screening (12+) [code = Tobacco Cessation Counseling and Screening (12+)] Future Scheduled [address] [facility] 00:00:00 Counseling and Medical Cent[facility] r Screening (12+) [code = Tobacco Cessation Counseling and Screening (12+)] Future Scheduled [address] [facility] 00:00:00 Counseling and Medical Cent[facility] r Screening (12+) [code = Tobacco Cessation Counseling and Screening (12+)] Future Scheduled 1969 DIABETIC EYE EXAM [code [facility] 00:00:00 = DIABETIC EYE EXAM] Medical Center Future Scheduled [address] [facility]:00 examination Medical Center (regime/therapy) [code = [id number]] Future Scheduled 1969 DIABETIC EYE EXAM [code [facility] 00:00:00 = DIABETIC EYE EXAM] Medical Center Future Scheduled [address] [facility] 00:00:00 examination Medical Center (regime/therapy) [code = [id number]] Future Scheduled 1969 DIABETIC EYE EXAM [code [facility] 00:00:00 = DIABETIC EYE EXAM] Medical Center Future Scheduled [address] [facility] 00:00:00 examination Medical Center (regime/therapy) [code = [id number]] Future Scheduled 1969 DIABETIC EYE EXAM [code [facility] 00:00:00 = DIABETIC EYE EXAM] Medical Center Future Scheduled [address] [facility] 00:00:00 examination Medical Center (regime/therapy) [code = 515403331] Future Scheduled 1969 DIABETIC EYE EXAM [code [facility] 00:00:00 = DIABETIC EYE EXAM] Medical Center Future Scheduled [address] [facility] 00:00:00 examination Medical Center (regime/therapy) [code = [id number]] Future Scheduled 1969 DIABETIC EYE EXAM [code [facility] 00:00:00 = DIABETIC EYE EXAM] Medical Center Future Scheduled [address] [facility] 00:00:00 examination Medical Center (regime/therapy) [code = [id number]] Future Scheduled 1969 DIABETIC EYE EXAM [code [facility] 00:00:00 = DIABETIC EYE EXAM] Medical Center Future Scheduled [address] [facility] 00:00:00 examination Medical Center (regime/therapy) [code = 324226291] Future Scheduled 1969 DIABETIC EYE EXAM [code [facility] 00:00:00 = DIABETIC EYE EXAM] Medical Center Future Scheduled [address] [facility] 00:00:00 examination Medical Center (regime/therapy) [code = [id number]] Future Scheduled 1969 DIABETIC EYE EXAM [code [facility] 00:00:00 = DIABETIC EYE EXAM] Medical Center Future Scheduled [address] [facility] 00:00:00 examination Medical Center (regime/therapy) [code = [id number]] Future Scheduled 1969 DIABETIC EYE EXAM [code [facility] 00:00:00 = DIABETIC EYE EXAM] Medical Center Future Scheduled [address] [facility] 00:00:00 examination Medical Center (regime/therapy) [code = [id number]] Future Scheduled 1969 DIABETIC EYE EXAM [code [facility] 00:00:00 = DIABETIC EYE EXAM] Medical Center Future Scheduled [address] [facility] 00:00:00 examination Medical Center (regime/therapy) [code = [id number]] Future Scheduled 1969 DIABETIC EYE EXAM [code [facility] 00:00:00 = DIABETIC EYE EXAM] Medical Center Future Scheduled [address] [facility] 00:00:00 examination Medical Center (regime/therapy) [code = [id number]] Future Scheduled 1969 DIABETIC EYE EXAM [code [facility] 00:00:00 = DIABETIC EYE EXAM] Medical Center Future Scheduled [address] [facility] 00:00:00 examination Medical Center (regime/therapy) [code = 520573965] Future Scheduled 1969 DIABETIC EYE EXAM [code [facility] 00:00:00 = DIABETIC EYE EXAM] Medical Center Future Scheduled [address] [facility] 00:00:00 examination Medical Center (regime/therapy) [code = [id number]] Future Scheduled 1969 DIABETIC EYE EXAM [code [facility] 00:00:00 = DIABETIC EYE EXAM] Medical Center Future Scheduled [address] [facility] 00:00:00 examination Medical Center (regime/therapy) [code = 306170304] Future Scheduled 1969 DIABETIC EYE EXAM [code [facility] 00:00:00 = DIABETIC EYE EXAM] Medical Center Future Scheduled [address] [facility] 00:00:00 examination Medical Center (regime/therapy) [code = [id number]] Future Scheduled 1969 DIABETIC EYE EXAM [code [facility] 00:00:00 = DIABETIC EYE EXAM] Medical Center Future Scheduled [address] [facility] 00:00:00 examination Medical Center (regime/therapy) [code = [id number]] Future Scheduled 1969 DIABETIC EYE EXAM [code [facility] 00:00:00 = DIABETIC EYE EXAM] Medical Center Future Scheduled [address] [facility] 00:00:00 examination Medical Center (regime/therapy) [code = 140606435] Future Scheduled 1969 DIABETIC EYE EXAM [code [facility] 00:00:00 = DIABETIC EYE EXAM] Medical Center Future Scheduled [address] [facility] 00:00:00 examination Medical Center (regime/therapy) [code = 872932391] Future Scheduled [address] [facility] 00:00:00 0-64 YRS (1 - PCV) Medical C enter [code = PNEUMOCOCCAL VACCINE 0-64 YRS (1 - PCV)] Future Scheduled [address] [facility] 00:00:00 0-64 YRS (1 - PCV) Medical C enter [code = PNEUMOCOCCAL VACCINE 0-64 YRS (1 - PCV)] Future Scheduled [address] [facility] 00:00:00 0-64 YRS (1 - PCV) Medical C enter [code = PNEUMOCOCCAL VACCINE 0-64 YRS (1 - PCV)] Future Scheduled [address] [facility] 00:00:00 0-64 YRS (1 - PCV) Medical C enter [code = PNEUMOCOCCAL VACCINE 0-64 YRS (1 - PCV)] Future Scheduled [address] [facility] 00:00:00 0-64 YRS (1 - PCV) Medical C enter [code = PNEUMOCOCCAL VACCINE 0-64 YRS (1 - PCV)] Future Scheduled [address] [facility] 00:00:00 0-64 YRS (1 - PCV) Medical C enter [code = PNEUMOCOCCAL VACCINE 0-64 YRS (1 - PCV)] Future Scheduled [address] [facility] 00:00:00 0-64 YRS (1 - PCV) Medical C enter [code = PNEUMOCOCCAL VACCINE 0-64 YRS (1 - PCV)] Future Scheduled [address] [facility] Test 00:00:00 0-64 YRS (1 - PCV) Medical C enter [code = PNEUMOCOCCAL VACCINE 0-64 YRS (1 - PCV)] Future Scheduled [address] [facility] Test 00:00:00 0-64 YRS (1 - PCV) Medical C enter [code = PNEUMOCOCCAL VACCINE 0-64 YRS (1 - PCV)] Future Scheduled [address] [facility] Test 00:00:00 0-64 YRS (1 - PCV) Medical C enter [code = PNEUMOCOCCAL VACCINE 0-64 YRS (1 - PCV)] Future Scheduled [address] [facility] Test 00:00:00 0-64 YRS (1 - PCV) Medical C enter [code = PNEUMOCOCCAL VACCINE 0-64 YRS (1 - PCV)] Future Scheduled [address] [facility] Test 00:00:00 0-64 YRS (1 - PCV) Medical C enter [code = PNEUMOCOCCAL VACCINE 0-64 YRS (1 - PCV)] Future Scheduled [address] [facility] Test 00:00:00 0-64 YRS (1 - PCV) Medical C enter [code = PNEUMOCOCCAL VACCINE 0-64 YRS (1 - PCV)] Future Scheduled [address] [facility] Test 00:00:00 0-64 YRS (1 - PCV) Medical C enter [code = PNEUMOCOCCAL VACCINE 0-64 YRS (1 - PCV)] Future Scheduled [address] [facility] 00:00:00 0-64 YRS (1 - PCV) Medical C enter [code = PNEUMOCOCCAL VACCINE 0-64 YRS (1 - PCV)] Future Scheduled [address] [facility] 00:00:00 0-64 YRS (1 - PCV) Medical C enter [code = PNEUMOCOCCAL VACCINE 0-64 YRS (1 - PCV)] Future Scheduled [address] [facility] 00:00:00 0-64 YRS (1 - PCV) Medical C enter [code = PNEUMOCOCCAL VACCINE 0-64 YRS (1 - PCV)] Future Scheduled [address] [facility] 00:00:00 0-64 YRS (1 - PCV) Medical C enter [code = PNEUMOCOCCAL VACCINE 0-64 YRS (1 - PCV)] Future Scheduled [address] [facility] 00:00:00 0-64 YRS (1 - PCV) Medical C enter [code = PNEUMOCOCCAL VACCINE 0-64 YRS (1 - PCV)] Future Scheduled 1959 CT Colonography (combo) [facility] 00:00:00 [code = CT [facility] ([facility])] Future Scheduled 1959 Screening for malignant [facility] 00:00:00 neoplasm of colon Medical Ce nter (procedure) [code = 746191811] Future Scheduled 1959 Screening for malignant [facility] 00:00:00 neoplasm of colon Medical Ce nter (procedure) [code = 727913804] Future Scheduled 1959 Sigmoidoscopy [facility]] [facility] Cent[facility] Future Scheduled 1959 CT Colonography (combo) [facility] 00:00:00 [code = CT [facility] (combo)] Future Scheduled 1959 Screening for malignant [facility] 00:00:00 neoplasm of colon Medical Ce nter (procedure) [code = 341044541] Future Scheduled 1959 Screening for malignant [facility] 00:00:00 neoplasm of colon Medical Ce nter (procedure) [code = 183561825] Future Scheduled 1959 Sigmoidoscopy [facility]code [facility] S[facility]oidoscopy] [facility] Cent[facility] Future Scheduled 1959 CT Colonography (combo) [facility] 00:00:00 [code = CT [facility] (combo)] Future Scheduled 1959 Screening for malignant [facility] 00:00:00 neoplasm of colon Medical Ce nter (procedure) [code = 068392246] Future Scheduled 1959 Screening for malignant [facility] 00:00:00 neoplasm of colon Medical Ce nter (procedure) [code = 844013471] Future Scheduled 1959 Sigmoidoscopy [facility]code [facility] S[facility]oidoscopy] Medical Katiee r Future Scheduled 1959 CT Colonography (combo) [facility] 00:00:00 [code = CT [facility] (combo)] Future Scheduled 1959 Screening for malignant [facility] 00:00:00 neoplasm of colon Medical Ce nter (procedure) [code = 992047667] Future Scheduled 1959 Screening for malignant [facility] 00:00:00 neoplasm of colon Medical Ce nter (procedure) [code = 042394760] Future Scheduled 1959 Sigmoidoscopy [code = [facility] 00:[facility] Sigmoidoscopy] Medical Katiee r Future Scheduled 1959 CT Colonography (combo) [facility] 00:00:00 [code = CT [facility] (combo)] Future Scheduled 1959 Screening for malignant [facility] 00:00:00 neoplasm of colon Medical Ce nter (procedure) [code = 859991812] Future Scheduled 1959 Screening for malignant [facility] 00:00:00 neoplasm of colon Medical Ce nter (procedure) [code = 756760902] Future Scheduled 1959 Sigmoidoscopy [facility]code = [facility] S[facility]oidoscopy] Medical Katiee r Future Scheduled 1959 CT Colonography (combo) [facility] 00:00:00 [code = CT [facility] (combo)] Future Scheduled 1959 Screening for malignant [facility] 00:00:00 neoplasm of colon Medical Ce nter (procedure) [code = 840381736] Future Scheduled 1959 Screening for malignant [facility] 00:00:00 neoplasm of colon Medical Ce nter (procedure) [code = 563799824] Future Scheduled 1959 Sigmoidoscopy [code = [facility] Sigmoidoscopy] Medical Katiee r Future Scheduled 1959 CT Colonography (combo) [facility] 00:00:00 [code = CT [facility] (combo)] Future Scheduled 1959 Screening for malignant [facility] 00:00:00 neoplasm of colon Medical Ce nter (procedure) [code = 518316805] Future Scheduled 1959 Screening for malignant [facility] 00:00:00 neoplasm of colon Medical Ce nter (procedure) [code = 066880718] Future Scheduled 1959 Sigmoidoscopy [facility]code [facility] S[facility]oidoscopy] Medical Cente r Future Scheduled 1959 CT Colonography (combo) [facility] 00:00:00 [code = CT Colonography [facility] (combo)] Future Scheduled 1959 Screening for malignant [facility] 00:00:00 neoplasm of colon Medical Ce nter (procedure) [code = 852343610] Future Scheduled 1959 Screening for malignant [facility] 00:00:00 neoplasm of colon Medical Ce nter (procedure) [code = 695719512] Future Scheduled 1959 Sigmoidoscopy [facility]code [facility] S[facility]oidoscopy] Medical Cente r Future Scheduled 1959 CT Colonography (combo) [facility] 00:00:00 [code = CT Colonography [facility] (combo)] Future Scheduled 1959 Screening for malignant [facility] 00:00:00 neoplasm of colon Medical Ce nter (procedure) [code = 448602140] Future Scheduled 1959 Screening for malignant [facility] 00:00:00 neoplasm of colon Medical Ce nter (procedure) [code = 513432430] Future Scheduled 1959 Screening for malignant [facility] 00:00:00 neoplasm of colon Medical Ce nter (procedure) [code = 281648847] Future Scheduled 1959 Screening for malignant [facility] 00:00:00 neoplasm of colon Medical Ce nter (procedure) [code = 084538784] Future Scheduled 1959 Sigmoidoscopy [code [facility] S[facility]oidoscopy] Medical Cente r Future Scheduled 1959 CT Colonography (combo) [facility] 00:00:00 [code = CT Colonography [facility] (combo)] Future Scheduled 1959 Screening for malignant [facility] 00:00:00 neoplasm of colon Medical Ce nter (procedure) [code = 519873432] Future Scheduled 1959 Screening for malignant [facility] 00:00:00 neoplasm of colon Medical Ce nter (procedure) [code = 441366973] Future Scheduled 1959 Screening for malignant [facility] 00:00:00 neoplasm of colon Medical Ce nter (procedure) [code = 072620335] Future Scheduled 1959 Screening for malignant [facility] 00:00:00 neoplasm of colon Medical Ce nter (procedure) [code = 530063215] Future Scheduled 1959 Sigmoidoscopy [code = [facility] 00:[facility] Sigmoidoscopy] Medical Cente r Future Scheduled 1959 CT Colonography (combo) [facility] 00:00:00 [code = CT [facility] (combo)] Future Scheduled 1959 Screening for malignant [facility] 00:00:00 neoplasm of colon Medical Ce nter (procedure) [code = 079440911] Future Scheduled 1959 Screening for malignant [facility] 00:00:00 neoplasm of colon Medical Ce nter (procedure) [code = 405696126] Future Scheduled 1959 Screening for malignant [facility] 00:00:00 neoplasm of colon Medical Ce nter (procedure) [code = 211950510] Future Scheduled 1959 Screening for malignant [facility] 00:00:00 neoplasm of colon Medical Ce nter (procedure) [code = 983177768] Future Scheduled 1959 Sigmoidoscopy [code [facility] S[facility]oidoscopy] Medical Cente r Future Scheduled 1959 CT Colonography (combo) [facility] 00:00:00 [code = CT [facility]ography [facility] (combo)] Future Scheduled 1959 Screening for malignant [facility] 00:00:00 neoplasm of colon Medical Ce nter (procedure) [code = 861723923] Future Scheduled 1959 Screening for malignant [facility] 00:00:00 neoplasm of colon Medical Ce nter (procedure) [code = 519199923] Future Scheduled 1959 Screening for malignant [facility] 00:00:00 neoplasm of colon Medical Ce nter (procedure) [code = 584141359] Future Scheduled 1959 Screening for malignant [facility] 00:00:00 neoplasm of colon Medical Ce nter (procedure) [code = 554268041] Future Scheduled 1959 Sigmoidoscopy [code = [facility] S[facility]oidoscopy] Medical Cente r Future Scheduled 1959 CT Colonography (combo) [facility] 00:00:00 [code = CT Colonography [facility] (combo)] Future Scheduled 1959 Screening for malignant [facility] 00:00:00 neoplasm of colon Medical Ce nter (procedure) [code = 595284740] Future Scheduled 1959 Screening for malignant [facility] 00:00:00 neoplasm of colon Medical Ce nter (procedure) [code = 703418438] Future Scheduled 1959 Screening for malignant [facility] 00:00:00 neoplasm of colon Medical Ce nter (procedure) [code = 761577499] Future Scheduled 1959 Screening for malignant [facility] 00:00:00 neoplasm of colon Medical Ce nter (procedure) [code = 684334480] Future Scheduled 1959 Sigmoidoscopy [code = [facility] S[facility]oidoscopy] Medical Cente r Future Scheduled 1959 CT Colonography (combo) [facility] 00:00:00 [code = CT Colonography [facility] (combo)] Future Scheduled 1959 Screening for malignant [facility] 00:00:00 neoplasm of colon Medical Ce nter (procedure) [code = 369996813] Future Scheduled 1959 Screening for malignant [facility] 00:00:00 neoplasm of colon Medical Ce nter (procedure) [code = 379663799] Future Scheduled 1959 Screening for malignant [facility] 00:00:00 neoplasm of colon Medical Ce nter (procedure) [code = 910499488] Future Scheduled 1959 Screening for malignant [facility] 00:00:00 neoplasm of colon Medical Ce nter (procedure) [code = 087777626] Future Scheduled 1959 Sigmoidoscopy [facility]code [facility] S[facility]oidoscopy] Medical Cente r Future Scheduled 1959 CT Colonography (combo) [facility] 00:00:00 [code = CT Colonography [facility] (combo)] Future Scheduled 1959 Screening for malignant [facility] 00:00:00 neoplasm of colon Medical Ce nter (procedure) [code = 455527652] Future Scheduled 1959 Screening for malignant [facility] 00:00:00 neoplasm of colon Medical Ce nter (procedure) [code = 495425125] Future Scheduled 1959 Screening for malignant [facility] 00:00:00 neoplasm of colon Medical Ce nter (procedure) [code = 361718165] Future Scheduled 1959 Screening for malignant [facility] 00:00:00 neoplasm of colon Medical Ce nter (procedure) [code = 701395915] Future Scheduled 1959 Sigmoidoscopy [code = [facility] S[facility]oidoscopy] Medical Cente r Future Scheduled 1959 CT Colonography (combo) [facility] 00:00:00 [code = CT Colonography [facility] (combo)] Future Scheduled 1959 Screening for malignant [facility] 00:00:00 neoplasm of colon Medical Ce nter (procedure) [code = 320001310] Future Scheduled 1959 Screening for malignant [facility] 00:00:00 neoplasm of colon Medical Ce nter (procedure) [code = 261997623] Future Scheduled 1959 Screening for malignant [facility] 00:00:00 neoplasm of colon Medical Ce nter (procedure) [code = 680559427] Future Scheduled 1959 Screening for malignant [facility] 00:00:00 neoplasm of colon Medical Ce nter (procedure) [code = 815459088] Future Scheduled 1959 Sigmoidoscopy [facility]code [facility] S[facility]oidoscopy] Medical Cente r Future Scheduled 1959 CT Colonography (combo) [facility] 00:00:00 [code = CT Colonography [facility] (combo)] Future Scheduled 1959 Screening for malignant [facility] 00:00:00 neoplasm of colon Medical Ce nter (procedure) [code = 737681460] Future Scheduled 1959 Screening for malignant [facility] 00:00:00 neoplasm of colon Medical Ce nter (procedure) [code = 016599941] Future Scheduled 1959 Screening for malignant [facility] 00:00:00 neoplasm of colon Medical Ce nter (procedure) [code = 905471861] Future Scheduled 1959 Screening for malignant [facility] 00:00:00 neoplasm of colon Medical Ce nter (procedure) [code = 168356985] Future Scheduled 1959 Sigmoidoscopy [code = [facility] S[facility]oidoscopy] Medical Cente r Future Scheduled 1959 CT Colonography (combo) [facility] 00:00:00 [code = CT Colonography [facility] ([facility]bo)] Future Scheduled 1959 Screening for malignant [facility] 00:00:00 neoplasm of colon Medical Ce nter (procedure) [code = 973731731] Future Scheduled 1959 Screening for malignant [facility] 00:00:00 neoplasm of colon Medical Ce nter (procedure) [code = 963320577] Future Scheduled 1959 Sigmoidoscopy [facility]code [facility] S[facility]oidoscopy] Medical Cente r Future Scheduled 1959 CT Colonography (combo) [facility] 00:00:00 [code = CT Colonography [facility] (combo)] Future Scheduled 1959 Screening for malignant [facility] 00:00:00 neoplasm of colon Medical Ce nter (procedure) [code = 428870315] Future Scheduled 1959 Screening for malignant [facility] 00:00:00 neoplasm of colon Medical Ce nter (procedure) [code = 276297650] Future Scheduled 1959 S[facility]oidoscopy [facility]code [facility] S[facility]oscopy] Medical Cente r Encounters Start End Encounter Admission Attending Care Care Encounter Source Date/Time Date/Time Type Type Clinicians Facility Department ID 2022-10-03 Outpatient MATT BANEGAS [facility] Surgery [id number] [facility] 10:04:06 2022-06-30 Outpatient 3 [id number] [place] [id number] [facility] 13:19:54 [facility] [place] 2022-06-25 Outpatient 3 [id number] [facility] OTH [id number] [facility] 15:43:22 [facility] [place] 2022-06-23 Outpatient 3 [id number] E[facility] REF [id number] [facility] 11:03:16 [facility] [place] 2022-11-26 2022-11-26 Outpatient MARINA [facility] [id number] [facility] 09:35:41 12:53:05 FLORINDA [facility] 2022-11-23 2022-11-23 Outpatient MATT AHUMADA [facility] [id number] [facility] 11:48:24 14:05:45 [facility] 2022-11-18 2022-11-18 Outpatient [facility] [id number] [facility] 12:34:22 12:34:22 [facility] 2022-11-18 2022-11-18 Outpatient TERRANCE [facility] [id number] [facility] 11:27:31 11:27:31 ROLY [facility] 2022-11-18 2022-11-18 Outpatient TERRANCE [facility] [id number] [facility] 11:27:10 11:27:10 ROLY jesus of Medicin e 2022-10-27 2022-11-08 Inpatient ER [facility] Surgery [id number] [facility] 14:38:00 20:45:00 [facility] 2022-10-27 2022[facility]-08 [facility] [id number] [facility] 14:38:00 20:45:00 Encounter Agapito Mckenzie, [facility] 2022-10-27 2022-11-08 [facility] Ervin Hammond [facility] [id number] 14:38:00 20:45:00 Encounter Agapito Mckenzie, [facility] 2022-11-04 2022-11-04 Anesthesia [facility] [id number] [facility] 08:00:00 14:35:00 Event elizabeth [facility] 2022-11-04 2022-11-04 Anesthesia [facility] [id number] [facility] 08:00:00 14:35:00 Event elizabeth [facility] 2022-11-04 2022-11-04 Surgery Ahumada, [facility] [id number] 08:00:00 11:09:00 [facility] 2022-11-04 2022-11-04 Surgery Ahumada, [facility] [id number] 08:00:00 11:09:00 [facility] 2022-10-30 2022-10-30 Surgery Antonio, [facility] [id number] 12:05:00 12:46:00 [facility] 2022-10-30 2022-10-30 Surgery Antonio, [facility] [id number] 12:05:00 12:46:00 [facility] 2022-10-30 2022-10-30 Anesthesia Phil [facility] [id number] 11:48:00 12:34:[facility] 2022-10-30 Anesthesia Mariana [facility] [id number] 11:48:00 12:34:[facility] 2022-10-30 2022-10-30 Outpatient SHEIKH [facility] [id number] [facility] 08:34:10 08:34:10 [facility] 2022-10-27 2022-10-27 [facility] [id number] 11:23:00 14:25:[address] [facility] 2022-10-27 2022-10-27 [facility] [id number] [id number] 11:23:00 14:25:[address] [facility] 2022-10-27 2022-10-27 Surgery [facility] [id number] 13:00:00 13:35:00 [facility] 2022-10-27 2022-10-27 Outpatient [facility] [id number] [facility] 10:45:11 10:45:11 [facility] 2022-10-27 2022-10-27 Orders [facility] [id number] 00:00:00 00:00:00 Only [facility] 2022-10-27 2022-10-27 Travel [facility] [id number] [facility] 00:[facility]00 00:00:00 [facility] 2022-10-27 2022-10-27 Orders [facility] [id number] 00:00:00 00:00:00 Only [facility] 2022-10-27 2022-10-27 Travel [facility] [id number] [facility] 00:[facility]00 00:00:00 [facility] 2022-10-13 2022-10-13 [id number] 13:30:00 14:00:00 [facility] 2022-10-13 2022-10-13 Anesthesia Jose Mahan [facility] [id number] [facility] 13:37:17 13:37:17 Event [facility] 2022-10-13 2022-10-13 Anesthesia Jose Mahan [facility] [id number] [facility] 13:37:17 13:37:17 Event [facility] 2022-10-13 2022-10-13 [facility] Matt Ahumada [facility] [id number] 13:30:00 13:30:00 [facility] 2022-10-12 2022-10-12 [facility] [id number] [facility] 11:01:16 14:37:57 [facility] 2022-10-12 2022-10-12 [facility] [id number] [facility] 11:00:27 14:37:22 [facility] 2022-10-12 2022-10-12 Outpatient ISRAEL [facility] [id number] [facility] 10:59:27 14:18:46 NITZA [facility] 2022-10-12 2022-10-12 Outpatient [facility] [id number] [facility] 00:00:00 00:00:00 2022-10-12 2022-10-12 Travel [facility] [id number] [facility] 00:[facility]00 00:00:00 [facility] 2022-10-12 2022-10-12 Travel [facility] [id number] [facility] 00:00:00 00:00:00 [facility] 2022-10-11 2022-10-11 Outpatient [facility] [id number] [facility] 09:46:13 09:46:13 [facility] 2022-10-08 2022-10-08 Outpatient YAZAN [facility] [id number] [facility] 10:44:45 13:32:23 ROLY [facility] 2022-09-30 2022-09-30 Outpatient CHARO CULLEN [id number] [facility] 00:00:00 00:00:00 LINCOLN stephenson 2022-09-28 2022-09-28 Outpatient AHUMADA, MATT [facility] [id number] [facility] 10:26:38 14:08:22 [facility] 2022-08-05 2022-08-05 Outpatient PREZAS, CHARO OTERO [id number] [facility] 00:00:00 00:00:00 LINCOLN Seybol d 2022-08-05 2022-08-05 Outpatient PREZAS, CHARO OTERO [id number] [facility] 00:00:00 00:00:00 LINCOLN Seybol d 2022-08-02 2022-08-02 Outpatient PREZAS, CHARO OTERO [id number] [facility] 13:30:00 13:30:00 LINCOLN Seybol d 2022-07-21 2022-07-21 Outpatient PREZAS, CHARO OTERO [id number] [facility] 00:00:00 00:00:00 LINCOLN Seybol d 2022-07-20 2022-07-20 Outpatient LAB90 CHARO OTERO [id number] [facility] 09:15:00 09:15:00 Seybol d 2022-07-20 2022-07-20 Outpatient PREZAS, CHARO OTERO [id number] [facility] 00:00:00 00:00:00 LINCOLN Seybol d 2022-07-14 2022-07-14 Outpatient PREZAS, CHARO OTERO [id number] [facility] 00:00:00 00:00:00 LINCOLN Seybol d 2022-07-14 2022-07-14 Outpatient PREZAS, CHARO OTERO [id number] [facility] 00:00:00 00:00:00 LINCOLN Seybol d 2022-07-07 2022-07-07 Outpatient PREZAS, CHARO OTERO [id number] [facility] 00:00:00 00:00:00 LINCOLN Seybol d 2022-07-07 2022-07-07 Outpatient PREZAS, CHARO OTERO [id number] [facility] 00:00:00 00:00:00 LINCOLN Seybol d 2022-07-06 2022-07-06 Outpatient LAB90 CHARO OTERO [id number] [facility] 09:20:00 09:20:00 Seybol d 2022-07-05 2022-07-05 Outpatient CHARO CULLEN [id number] [facility] 13:45:00 13:45:00 LINCOLN Seybol d 2022-06-11 2022-06-26 [facility] [id number] [facility] 18:45:00 15:29:00 Encounter Samantha Garcia dmeetri Roldan, [facility] ical Charley, [facility] 2022-06-11 2022-06-26 [facility] [id number] [facility] 18:45:00 15:29:00 Encounter Samantha Garcia demetri Roldan, [facility] ical Zindrandy, [facility] 2022-06-11 2022-06-26 Inpatient [facility] Surgery [id number] [facility] 18:45:00 15:29:00 [facility] 2022-06-12 2022-06-12 [facility] [id number] 07:30:00 11:27:00 [facility] 2022-06-12 2022-06-12 Surgery Edwardo [facility] [id number] 07:30:00 11:27:00 [facility] 2022-06-12 2022-06-12 Anesthesia [place], [facility] [id number] 08:02:00 10:46:00 Event [facility] 2022-06-12 2022-06-12 Anesthesia [place], [facility] [id number] 08:02:00 10:46:00 Event [facility] 2022-06-11 2022-06-11 Outpatient [facility] [id number] [facility] 18:45:00 23:59:00 Kenneth 2022-06-11 2022-06-11 Outpatient CHARO CULLEN [id number] [facility] 00:00:00 00:00:00 LINCOLN Seybol d 2022-06-11 2022-06-11 Travel [facility] [id number] [facility] 00:00:00 00:00:00 [facility] 2022-06-11 2022-06-11 Travel [facility] [id number] [facility] 00:00:00 00:00:00 [facility] 2022-06-02 2022-06-02 Outpatient LAB90 CHARO OTERO [id number] [facility] 11:55:00 11:55:00 Seybol d 2022-06-01 2022-06-01 Outpatient PREZAS, CHARO OTERO [id number] [facility] 00:00:00 00:00:00 LINCOLN Seybol d 2022-05-31 2022-05-31 Outpatient PREZAS, CHARO OTERO [id number] [facility] 00:00:00 00:00:00 LINCOLN Seybol d 2022-05-28 2022-05-28 Office Sandoval Cullen [id number] [facility] 15:45:00 16:00:00 Visit Lincoln Souza [id number] Se ybold [id number] 2022-03-23 2022-03-23 Outpatient BRITTANYZACHARO Pabon [id number] [facility] 08:00:00 08:00:00 LINCOLN Seybol d 2022-03-15 2022-03-15 Outpatient PREZASCHARO [id number] [facility] 00:00:00 00:00:00 LINCOLN Seybol d 2022-02-23 2022-02-23 Office PrezaSandoval pabon [id number] [facility] 10:45:00 11:00:00 Visit Lincoln Souza [id number] Se ybold [id number] 2022-02-23 2022-02-23 Outpatient PREZACHARO Pabon [id number] [facility] 00:00:00 00:00:00 LINCOLN Seybol d 2022-02-10 2022-02-10 Office Sandoval Cullen [id number] [facility] 13:45:00 14:15:00 Visit Lincoln Souza [id number] Se miller [id number] 2018-12-21 2018-12-21 Outpatient Sundar Kwokt [id number] [facility] 14:40:00 14:40:[address] [facility] 2017-12-21 2017-12-21 Outpatient [facility] [place] [id number] [facility] 16:14:00 16:14:[address] [facility] 2017-12-05 2017-12-05 Outpatient [place] [id number] [facility] 11:30:00 11:30:[address] [facility] Results Test Description Test Time Test Comments Results Result Sour e Comments Urine Protein 2022-11-19 Protein, [facility]hr [facility]:06[facility]ERV[facility]ALLGlobulin, 24hr UrineCHRISTUS [facility] – MARSHALLUPEP, [facility]USProtein, UrineMEMORIAL [facility] HOSPITALEE SCANNED REPORTOperator ID - BS Urine Protein 2022-11-19 Protein, 24hr [facility], 10:06:21 [facility] CENTERVolume, UrineCHRISTUS [facility] MARSHALLAlbumin, 24hr UrineCHRISTUS [facility] – MARSHALLGlobulin, 24hr UrineCHRISTUS GOOD [facility]PH[facility] – MARSHALLUPEP, [facility] CAMPUSProtein, [facility] LancasterEE SCANNED REPORTOperator ID - BS Urine Protein 2022-11-19 Protein, [address] [facility] Elect[facility], 10:06:21 UrineSaint [facility] [place] [facility] CENTERVolume, UrineCHRISTUS [facility] – MARSHALLAlbumin, 24hr UrineCHRISTUS [facility] – MARSHALLGlobulin, 24hr UrineCHRISTUS [facility] – MARSHALLUPEP, [facility] CAMPUSProtein, UrineMEMORIAL HERMANN SOUTHWEST HOSPITALEE SCANNED REPORTOperator ID - BS Urine Protein 2022-11-19 Protein, [address] [facility], 10:06:21 UrineSaint [facility] [place] [facility] hour [facility] CENTERVolume, UrineCHRISTUS [facility] MARSHALLAlbumin, 24hr UrineCHRISTUS [facility] – MARSHALLGlobulin, 24hr UrineCHRISTUS [facility]PH[facility] – MARSHALLUPEP, [facility] CAMPUSProtein, UrineMEMORIAL HERMANN SOUTHWEST HOSPITALEE SCANNED REPORTOperator ID - BS Urine Protein 2022-11-19 Protein, [address] [facility] Electroph[facility], 10:06:21 UrineSaint [facility] [place] 24 hour [facility] CENTERVolume, UrineCHRISTUS [facility] MARSHALLAlbumin, 24hr UrineCHRISTUS [facility] – MARSHALLGlobulin, 24hr UrineCHRISTUS [facility] – MARSHALLUPEP, [facility] CAMPUSProtein, UrineMEMORIAL HERMANN SOUTHWEST HOSPITALEE SCANNED REPORTOperator ID - BS Urine Protein 2022-11-19 Protein, [address] [facility] Electrophoresis, 10:06:21 [place] [id number] hour [facility] CENTERVolume, UrineCHRISTUS [facility] – MARSHALLAlbumin, 24hr UrineCHRISTUS [facility] – MARSHALLGlobulin, 24hr UrineCHRISTUS [facility] – MARSHALLUPEP, [facility] CAMPUSProtein, [facility] LancasterEE SCANNED REPORTOperator ID - BS Tissue Exam 2022-11-15 12:08:44 Test Item Value Reference Range Interpretation Comme nts Case Report (test code = 104) Surgical Pathology Report Case: [id number] Authorizing Provider: Matt Ahumada MD Collected: 11/04/2022 11:02 AM Ordering Location: [facility] Received: 11/04/2022 11:06 AM SERVICES Pathologist: Ruby Cole MD Specimens: A) - Bladder, Bladder Margin B) - Large Intestine, Colon - Sigmoid C) - Ureter, Right, right asaf-ureteral tissue D) - colon, Proximal Margin DIAGNOSIS (test code = 3220) d7tgkYNhNFFkn0sdIIKryMOzXsQuMrNpTjTdLi p cdWMxIHtccnRmMVxlcGljOTYwMlxhbnNpXHNwbH PpI8ExqsjsMXidQQ0qHR1ryQhrdFFzhKNfICVmY sOyr5xgn999rNCva0cmCJAHnhzhkIn3iQadN05h f4R4LfvyL27hfMRnKDV4VALeKBVreTFwBIAoMJN 1IPObjLFoV5siFILnNW7mzagwOTftIJrpPAXzdF Y2JNXzrEXkU7YzNAUtSCfoSNIgxys3OsVgCj6mi HBaeNvdRLzoKNUrQRQnXLikFOPsYbJbRV9xNcsL BWSGZdnmDBYXY6wSYULRCFZRK2wEGszbJPNugzW bZH8eOgxjpk0euLAgaKyzxnW5kCIwjGSrj4r2nO UmkCTeekcpCVstNldgiX6khBrgtp1paLBtIEMuB IUICYsjsDx4WXSsm0QdX4NmA2yzm32yADFdoxib FTOxId1qE37RW62hXOPOF0HAZODUBSfUU9uGICM BTkQgUkVDVFVNLCBBTkQgVEVSTUlOQUwgSUxFVU 0vDZFHNJKIX0BtJoXTVTSAPY8IPjjzABYdZIAgD DynhfDfhIPnPPVnFJ2tH9HuB8lsx22hLW3aZDUq NAVeZBR4u2YkG92vcNWxJ09tm54rNO5qIVXjNWX hcFdrPMwrBuZcUO56aDX4UBQtJAcrUHYaDGNlGL GmbjxjpEtlQPScAGTrQNQaYXcmTVkvPMC4UKB2C UBcsWBax5rjxqDkhg1qs7g2MKPyCYVfJ18liNLu qLlnHZBqMUIRmwTfAGRdFTZpPUR6mSEzCKCevVL rXLOakM0iTFFoFMOrjtKqGB4fC1R4nJOzVPZfcu GgaC1lmV42CCUkkDabjfHqurPgaKRrxL7xoGSgz FYhmxYns8fanh8bhZYiUX3qUJnhLH0bxnnjinTy BMDwSMkmLSBnb7RiWSWdi8ceyBSlLJUoQLZgcKT 6XJdaOVOhK1Ixn2nmxO8hAXIrxl67rO5ctAEzjn MpSGtqaRNqOXAaGKItnOLjeSUoGH9gdzkwnsVdg wCtYKAqdpVpLj8nVLbomdObfMGdTRTrzsApbs1i IAWhjbKtuYjvSVliEHPqHJH3w1JwADSzJVzkGSM mPjqqXSIpMFO3QVHudD0vjYCnb7OthdpcckZiDZ KwiuUnOp3lYJ0uvCgexzAgT7brBXVfSTErJCWvw iHmLF4GSTR7s0NzQ20daVWcqGNnd4Gfd8v9oVGj dBQbseQsG5Jfs8YovmV5iDRmCMBchcntm1ktiqj qUSSos8Agj5NzvN87m3w5jD2rBXBfD4DcDRUtyl 9kUGrjBjhuXMJmkuW7KTclBBJptJgyy6vuYEDof g0eNMiwQOGpMABdSAxzOCHeUE74S40sGBG7wPBc JB5vDJPeH46tBubfSP12TGWjsBybuT5tcTByCNR wo3YlQFaafSmueRUhNULcBMKQVCJryVJwb0cjrr WtnNPrd9Kux4v9kGNfuyMbfIkqjQXsR6AlmDLdz YR9x5KhnMddyR7roNGfAQZfw4LtWTxcjWgbWAKm mnwiLMLxBa5nP96UKHVMGMIXJOXeUWTJU7lBDOT OAkvVCgVDCGQZXNziDQvVKEPXP097SZUxtqCfVX 0jCcmzhn0jaORtcHyhcdU6sAKsbVUev6q8wONfg GWuglzoCVgkSvfnfZ8uhQszuyhhNHVqPFBiRKFz MP3bUAG8VZHxD6Jgjs6cfXjnQNJogeZtkUObsbP hQgeuHQ5gaAMyMRCyrqXIFwFUH4iBKdviXNPENF tYUQajFPSVS6cKBKGMHOWUO5uETthvsESvZIDnX PRLu8flrkbbBM78C77mJKY3hRFuQI1oUSIoA04i ZdrlUK65LLdaz1KuiQY5rN7vh6lzVwGoBc4uee7 reDi1dL1yvKLmSDXuBTDzXMYihzytbhHoDEByvX w2ARKmuK7qtJZhIF3bERKcaMWrNJWpbgovSPYbg qLeAO9wWAWYWG7NA7zGVaBVAL0SBcPCWVVDDZzz zKM9IJCVPFGUyKLsFFcBJlN6TUhkJNFQURcJOmx prWWtLLSwgaNkVzCbkTZfUHFxhpilSDG1y7druS YxXHNzdGUxODAwMFxhbnNpXGRlZmxhbmcxMDMzX OD2ucScTAJnOEggVLWpPLtvNc8mkRSvgZytElEz OJDij1fahjEKzwhlaVv8w9nrUPLgDkY8uTNmEZb yI1befxZxuSNyTVBoWLn2qV73WWMhaC7jcTAgDM mlnrQaUxD9GMjjOPKqAzK2VDTqlSApDSKxE2erA PTqOJgcPHXbSKesnOFhBYX4qXmxt2G9dGXlgOGd kOlwAvJlEyOyIxWXc0GwZNf0uBfiX2WbKBKaJvV 5oCSkTBVmFHbkUVYsONTjtiI5dU17EWwmitR6aD Bfy4Tse63aj296qK3lsVCiLQB1YQKnXDUslRGaU BCvTXB0VSHslKQyR1kjHENfIH7dzcekJZjqXWxk WUCzbRF0KADjoRKwL7GcNCGmYKgmZMMqosw8MoX lUo1zaURveFraFDsrd9fbf9dooNImRtc8LQYsXy YqJfzgWSjqp5Cvh8drZOVrut2qYTK0sZYvtRxyr 2L0bHIsWQJlqWIgNVQpRR6doXVcZKMnyW4nunir QGYhFeMoqjphNQXfzBagljKeMh2jbCmlBXL0KJc hC3pybH8bFqY7YXdoP3mlgV9dONd5CCkmWLPrcQ H7trY6ZJSxyCSaF5ZpzK9wDONwOF9kqnc8w2zoT TU1FItuVGXcFeP9mcK5NKCwhRNsXCIbyTtvIAtp e648UXG7YrWfLZXai9VoP2NskUgfS90soMvvZ28 nUAEqvNonxA8nyVhehN9lFmVyVnEeUBlvxYxiRE 7bVIAaI1wtrLUmEYDdQYCkB7fnUlIjpG8gsCrgS YqtizFtKQYqZxo2IOSopAFjIQHyKtb3GNGjEGTn T01kkptcVSX6vV9nx8lrv0YvMVnzONL1UFWfc68 vXDvokzY5RNgdHh08TIcwGGB8JCvsWFE8vS== COMMENT (test code = 3359) z9oboYBgXLQozHF0KcFsZYMlo4ngs9TepDRmmWD fRKxbrKDxziXwpf65aZV2pA20LB7mPQBqLuF2HP LqtlW2Dfa9WHUnBAYatFAyW644q5qsg1cwhqWgk BT2ONEbKQMyA3OaIK4zMXHpyQVgP20egCBuKFX9 UUPtGQSabPTpDZXzOHI8ELGiwNHkV1thDQYzQN0 wjtpqAMgiTHabLJTlxQD9ZOAqaWByJ6TdSDTrAL yoAQEczoj3YfSqUv8gaKGjzLzeLMvdVHYxBJEcT PauBOUiIpVcCNlfKGG0oC3vFAzrtm1dtuRbEIFw OAQyXEV9i3GpJ44zfAKcCAVuUSKox7WnG3fpzYW tEEkohOujKQv1LZK0aVX1nIb0nPWmk2w6pHLeRQ DhPDEdcFIjjONhlD2wEMU3KEzfERJwA9FevjVxi 6QwZDYxb72fz1t9gRZoOXtto6dgoeQ6lmJ5oWCn g53ikDudYd45MNjwCJ2uBEVcNKXoNQWlUHTNjWM xpZVvo6TuwMWveZ47w8r2jV3vIFHnNWV9bBVkFF TunDOkHVPvuN7oJCMvONbknJlbBZHmt9MsMSUoZ FYdtaZhVT7lOLRrq65rMM9aKKXzKmEoou5wQOnl t4X8APTkWI8tPCH5zP0xSGdqthMnQMWwtWbqfGP sSJpdGNNeCSKav3P0aO4mEZ9nVQCdEQBaEYOuc3 FvgNgab7Sai37ydAlsYc24ISogg8AyV1LaoR4aK BYAzIMeGAYpdpPwJNX4OoThBACqy5MaaZI5zCNf NQ0gtUCeLVYpKkXnSMPxOWfnEJIgWPYdZFWmQNM 0mRdqgLI9VVApO3Phq0CmaUEfUXXbdLjdbNYwPW HjMVVvcXOlHFa1EbFMv4zgqxYuZBJtwWTfewH6h EPoWWe7FIN9pZE4xQ0doLRbzG3feEveFLSeC91s uFVxBFSutHMbpRS7PECjsoafi2YufPNkYNLxGUX nvnDzvF04h4x0KU4rlcVcp2JeNAr4YQI6zZU2uV Gwm3j2tXDui9SzF8tvfHBtEVYeeeHytMmmrYsff WceSSXcIAF2eK3kyu2bJU28JVEooFwcJKVjgUGp W8XlSMQvtdSnIAQ5EEQxTJTnzORhGBPkHJVqEPE bOZetoPptoe7aaRwhxSxubc2yAJHkmzMyaPilbs PayYB0U4B5xvYiRJikph2egxZbEN83OscwHISuh GFyIFRoZSBtaXNtYXRjaCByZXBhaXIgcHJvdGVp dkEtAQ1EMAPuQL7PNCYpQZ9SBVVwHL6tHAIUBzS uOZxrkoTuzS59YBT0UEIdHFYqgrP0pQXpzODpi0 UnFtwysVP9UXCfcS7lyEIrPKAkMVAWZzZcJLU8A qNdJ6NdTDujZLCxuqjvOKMgwWOojS== SYNOPTIC REPORT (test code = 5765) COLON AND RECTUM: Resection, Inc luding Transanal Disk Excision of Rectal NeoplasmsCOLON AND RECTUM: RESECTION - All Tcrnfffpu2md Edition - Protocol posted: 03/10/2022 SPECIMEN Procedure: en-bloc resection with sigmoid, rectum, cecum, and terminal ileum Macroscopic Evaluation of Mesorectum: Cannot be determined: Due to mild adhesions with the small bowel and bladder TUMOR Tumor Site: Rectosigmoid Histologic Type: Adenocarcinoma Histologic Grade: G2, moderately differentiated Tumor Size: Cannot be determined: Due to marked adhesion with the small bowel and bladder ~ largest dimention 13 cm grossly Tumor Extent: Invades visceral peritoneum Macroscopic Tumor Perforation: Cannot be determined: Due to adherent small bowel and bladder wall Lymphovascular Invasion: Not identified Perineural Invasion: Not identified Number of Tumor Buds: 2 per 'hotspot' field Tumor [place] Score: Low (0-4) Type of Polyp in which Invasive Carcinoma Arose: None identified Treatment Effect: No known presurgical therapy MARGINS Margin Status for Invasive Carcinoma: All margins negative for invasive carcinoma Closest Margin(s) to Invasive Carcinoma: Proximal Closest Margin(s) to Invasive Carcinoma: Distal Closest Margin(s) to Invasive Carcinoma: Radial (circumferential) or mesenteric: rectosigmoid mesenteric margin Closest Margin(s) to Invasive Carcinoma: Small bowel, proximal and distal Distance from Invasive Carcinoma to Closest Margin: 7.5 cm Distance from Invasive Carcinoma to Radial (Circumferential) Margin: Cannot be determined: Due to marked adhesion to the small bowel cecum and bladder muscle Distance from Invasive Carcinoma to Distal Margin: Distance already reported as closest margin: 7.5 Margin Status for Non-Invasive Tumor: All margins negative for high-grade dysplasia / intramucosal carcinoma and low-grade dysplasia REGIONAL LYMPH NODES Regional Lymph Node Status: : All regional lymph nodes negative for tumor Number of Lymph Nodes Examined: 51 Tumor Deposits: Not identified DISTANT METASTASIS PATHOLOGIC STAGE CLASSIFICATION (pTNM, AJCC 8th Edition) Reporting of pT, pN, and (when applicable) pM categories is based on information available to the pathologist at the time the report is issued. As per the AJCC (Chapter 1, 8th Ed.) it is the managing physician's responsibility to establish the final pathologic stage based upon all pertinent information, including but potentially not limited to this pathology report. pT Category: pT4a pN Category: pN0 ADDITIONAL FINDINGS Additional Findings: Diverticulosis CPT Code(s) (test code = 3357) x1hldIGaTTKhtJN2YhDfPCJjw6kif3EtzQKu cGF jRDrtmUJpcmSrbj21fET3kD64ZL3tZZRmRpL8TK OfjsJ5Mff6AWRkIWJbxYFbS197q4mjg0yqddTkz ZP2hEyrARHqkdriFgC5NOrlGYGbsmqnSHo5XIkx PFOheAJ0LLQrcLNoW7VwEURtDZ7gdpn7SOF7VDx gSMLoXdR7OLJbjNOcAEBroCacNPzyu267MJD1Ka PsDSZeiqEloAqzwO6tBqCiHXN1UUWnVOE0WUzwN CWnMEwcJNS2SisaOZFzITfxDMq7YLduSVMdGFkr OnUvbOCoBAm9QhFvuFYdkBEqQFUici4= CLINICAL HISTORY (test code = 3356) z3rrjUXhJYUjwSU0NdHkYQErz9wol2G sdHBncGF zULxymOYprkUqed26iMW4tG57DM5qADHxAdW1IC TeqzI6Iuc8KHOvQRLvrGRhM469j7wtz2dcsrIvz VO5mApmUUOpmlcfPlW3HSshHFXiivlvBGd4NNer KVDabVV5TKAslQDsJ6WeBGOcHX2sjdr9EHE4IJc nFYPaNbM5FWHsoKVbVCXojLhyOAmfd151IUX1Bq YbTHMxbjHlnAcxpE9qCmIlIQP9RtD0Es6lPU6de TBau0h7aAApXDCCZSMkiLuvoROxE1LcsJVnr4Rp NLVNOJUyIECILUI8JiVauUCjRdVvOCUoJZShp1n glLMfKMQjCQKieUYflllulcZjpSDiL4Kru9RsbH UqL29gmAVlh2EpzCV4R7Ftd67wVYJnax6= SPECIMEN SOURCE (test code = 3377) c1iarEEaZWGonES2VhTgKVRrj7liy6Zm dHBncGF kYOjmoZNjjgXqll26nHJ7eN07VN5bUBNhYiT2OR GuahL2Rwt8PZGmAIHgoFLbC830t4oqn4rufcJca VI4cUvsHVUfxarsQqY6YOhyMHFuwgdqWAy7IRxs UWNjnSX1JNUktAPwO9HaLLZeZW7snpp7VRQ2VAh iBIEqMtQ2DAZhcYCfMWQosGysMPydz868IGW0Gx DdKNWytuLezNlijW3tWlFkRRTXGTC6s4YnU39we FWjRHArBLpaRMWtl7HfQQRkfKNnZDGmOOBgvn1= GROSS DESCRIPTION (test code = x8khjHEwKARzgJR8DpKfEBWou2qnp1EohFEy [facility] [id number]) rDGseyORpvyGxtk60yNE7pC26IG1qEPVbKuT7YF LbjlU3Bem5HCWpXSMnwYUyZ098l0vie1tbnkHbl UE5hZwdJNIvkdfnQaQ1ZSpiCNQbckbjPHw5YBkc YDKscFY7ITHzkCXcH7BiDOYgOB8tpog9PGJ2BGx sZCJbNeQ0DCLoiWRxJQJhqEopLWzak238FKD5Ln KvSCJsfoQ5OGblWVLxU3ByO3DiGPovSTT7LKAfK LAeJAZgVVSzYMCfRQlaemD5n7ygBFKcnQWsEWN4 WMwbnCBkVMNqAQWmPVcbUtUCAaYlMcH1OPY7LlP fNhP6XQw3LKTXEmXiIaCtJoW4TULoGLxeHKq1DW p3ALdXTiY5MsabUqqyFjjpLMLpTCKdYFv1NQXlG BhkiAJcIHIlFJHjDIqaEIgsY07jgRlqmF2sFeUx UWWQOeIIgMCmAKVdFigwVEPzXnZlEZGGvYAhg5Y sI8qvHK9nkRTgdiQjLJt5VNIxGaWuw9yxFs0fYN Hym5gjceHjVBW4tS2lREAsDLgrf3OkeqizdFKtH YawAVI4rVRyGNKdGCKdOQUiEE91XEmfPKKixkKw ZSwgTVJOIGFuZCAiYmxhZGRlciIgaXMgYSAyLjU csJLkTWSzXAYtm7TlBV79HJSkDXbiuQSiOANoHu E1zTf2JQUnlXSdd8JqOIkaaGAqCRK8cbAvRMJuu SAuJY5aCLMbYvSdqL6dZZUpZMCjjPYqu1WcfHTe jW8qQP0ivyukJgimUkXtLQkqIG3hhindysOjosQ sjxlzGMSyxXCxKOHlHIR4qOAaa8JbZ4ulJH0zmY Dsn6JmbDMxvDthf3HkwFwmttR4cpUgNTOfFIvji P9nVJ6kfqvxKjtnTMZjNpMoeYQxrNdfh2ReWjWv RWodTHWvUHUdrGMtCYwfKNSjnBinATz7AKU8Pg7 pzPHoFO5plGBnRUHsjvPFYKU6jS7hPFPoSQP9VQ TavnQHLfZPEXcnLHvdiilsy2QvoLe7iEHvFJSdw ZPahZWbYTMpXUCqreCIVyKORs8XLzGBDoezIiGc ILzcIBOtKG8uLTMxZVAhoERfLQFwxmWWO9fuSSO zH4GfN1JxbyKdoJNhJCGywdMdv8cbCCV4WVSsmQ ApyDGbEsMeZffiWFL6c8ifZNDxeASgWDZ3VDnst VJbDEAvSKZcJIriCfSYPdLaDwG8QGT6YlLlQoV4 KDe2OBSTKrGyFfYpZfZ7TEK4QvAcEHr6FMe6NEu BOlV1SnnzSTOsNpbeQIKkWFCmVEh8KAHxPSyiuE GtJQOiUPDwSXcmDPduO94xDpDrMHXKFlMXYTZqL TEXcsEvg5QplcRaSLNtvT2fGX1lA3gucU9kYW3s gJGjPXLmXgUkZ94gBNmcLKRtykGqHEp6IDCmDaW zh7wizTOjTIysPOC6lRTvTRBxWICaWUXnYT37MQ diNHMgbmFtZSwgbWVkaWNhbCByZWNvcmQgbnVtY uKvLZDaHJGum5tzqY1cOJogsdEavPSxZJHggSgx jWUil7cyllPeaOQwPC3aZA3sKcafKkStAPOxW4S of43vgK0qxM5wuZXlUAW6QLUjjL9arBDqmBN3yL YpSNXfFAAuaJWmioZrCO2qzRveIQArGZKlkUFho iEqpEYjQEDkuchoRHLxV6QnDYp1SqWrX45miQ8w uOVhK8ThKANxXCQcBlVnC72bxZ9wLAxvzEF4JBF mHYNvPGuxw5JvMW4gQI96xV0wVAyxcOGzWQuhMS 4zIGNtKSwgYWRoZXJlZCBkZXRydXNvciBtdXNjb KCtLTbeOwT3MMegyWIeRlWeU69nYRHxDJFpx4Pg vQDnLADxqUJtcnCgeZEeayTozCIpavFqU7XpQST xWy97YJGqZUqxDSfyhjx1nEWaiqLcQI43BFMmZK hcDZZwBO8eqCEvQJ8yFBKpHHZeKSkrSLVjpY4mQ GEafHNlBD5ebJ85FY1jJA0wg6YnbPTavE3dAViy TKSvhZGcZVThIFMvWKCqz3FmgIHvLZtbEaTaBPa 9QWGdwzmdz6NjFZQ0fKDmQEXglP6mQN29UDTod7 FspYYcYaQoVGozw4bxzcObACKXaWJfb4Dor7VoS E5vZIWwDJIjbFQbgKRzCXnqVGWzTrM6k6ZxgQMq IK2gwjWkOOlzDo5aPGZqYNQtDQH7tEIibmAfZPt imcGyPYGjUIJtSHJ6EDQspY4stQInzYK1wZMjfa UteNkkZXHmdy8oteInIPyhXSWiFYuzFUHwyGIqD OPlxU9zpUslRVFpS99zxBQtP56jl29qACUKzBOi t0NwV8smWM6zsHUqn2FwkyNiXARsBQXzvtHuiNK audUdoQhpKYPpyT2qQHlrfNkyuw6uNNJeOXhyvP qotfevX9RuzHota17rjQIxVF1hn5YqgDTlINKam 7LaNtWpSUEtNThtJMXlCWZoTQ93FNTbm8BqnQci FZYdJZWfvOUiEFtcDz08IXluGJ0cAPvvCc8oUNW wIM8bHWXhDLIwGEHhTYxaFRldQLUajIOltv7eGJ FePNCokNS8GQxzjlHocUGbNY1asnlaqpmkVIKgB ATolXOlay7sTQPpYBJwfx52uO5aiVKbcZlvw7fh TA7kvnhwomxwQs1jVTXzQJZfo23ucVeyMBGyyb0 sfoEzXPdbEVInRK5dnoquhvloKj89WKGgRLYmy7 0dsKzgIWGtC0DfMMDulE3gPD5oizyolrmtYQ9tF UTcBZWss69ziAdpKW7rDH42tT7hoAMjP0neDVBg hAMpb2BkqGTbVNXwNBNtNINtwnAwphtsUM9uvrn qxrXlYcB2hJBuhyKhwW0baEfmk0hzKYSayT0lKJ QvzmBtUMD0nNJhvEvlRPXgsg3aIFSjQbK8aBGbs 9yxaY6uMMMjw6dixa0iYDkzATTkyCEfGYXgSQNm AKYnBVYdOWIgnt27YWfpmp2lkvCrxVvdDWRwtn0 uybGcQLwmDQXpXE3sVVAoR2BnDC63Z90gEM1pNJ ZyTLThMQAfIAYrUURpXe6vlAKnrxUlJwHqFIWuL UxxEGIcIHV5FOuzNY8nEKXtNCB9VTCpsX3rkMJg wWR0tS6zODcaMA4ly7LkAX6sijCwu4YmaU60l5l 3MFZ9vNDaPGZ6zkDyz6NzbCYhL1jwWqYrQXxwpx FqAXTrLS72sTZgtZddOVYcfzboC1PzkJQrtP6ql KTkw0AwrsAgYS3efC4mGLZiKx4tCopsP68mUTEJ BSVsukFoTM6cGFGsKF1dQVMxQYwxl7ExhKuvjA0 lgFLkuuWkYEDTKZGnRWJntqAspDo2YTXgYLV4jW 0ersEymuDps2EhhCe5iHEeOtLmW7Yen0ApjBgkz B9awnOhtIOoXNBaKWYhe8YrUrcwBOJwrOMqSMar ksHxp2ZpOufmXFBiOxr1PGegVWIwTE52ZYHpRaV xNBHllN6kd9VjNUIxCP5fmU3qFNTggR8jZWlhvX areZ3kCgGieKv3H6ysuSRzQBWfEYEhGAhhdMVvX X26TSSzBvKaRGDqaC9hUKSsii8rCYEjLePaNTI9 t3CwD80ypRHdF94sh94dbAHiVO0oQM1qYWE6DD5 sv3SxcQ6dH6fvd8QsfUTbAWUhx5Imq7TdrXevIZ NzO05ryXNgR30bs29wyAWtTXimRRJoEsKFrYSen TZtNS7ceeeviqscLPBvWLGkgWxyGsRMtNRitpRk eFDzMFXcFZ5jRXL8iMPeoAQdOXStsMP8o36sSK9 6r5HtMEhhVQXfTtTaRaBPQNW7wUXws4RvkYAtjb HpVzdzHVDyg01pcIAhcY0wAPOuh38koSiqLIFuk HGgAGLzF0Gqa87nG20hADkpgUQpVXDjQbFPYHGo hC5qjDEfcNT6sAAhVKLvzG9iKD7uYCDgA0r7QTO ovD2zOI5lgfodxkjbKC8dWlXfKBzpFNRsFgE7WS hzTH1vDJCvuAY3YUa0VTorNQSxDlU7PJHbbMZxg 3HcmYO1hQKpNB9hUD9jRQ10BMdckHFdE6ebSWZk bzCfXTFmMLNsfcULUWB8KO7ub2UroKAumQRqhRZ rJ4lwUO8gDJApR7DnKZFfkkDoGNMtZDSazwWCTU zoWRlmiPLpHGFmX3BcrCWcICDxhK1dZHKgQULmK 8TanASjLFP5NhJKcq44uE0jkUHmmTfxw5paGVLk mY5vKI0mnoqfwximQX6uBrCqRUxhDKLwWgv8CT0 ik9NriS6ufH0mkeXglFUlGOZqoGjsg7dnQOUwmX 9mXWFargUGCBpeFDQ2beIzz4CzsCGvG2ccLFTjA V9dKQ06iQ6ogQTvRJD1BYzdUFU2coMzb1KvsPNq O6bfFIIbYXZmkn4vqrTbXTfwRHZrKWUvcxPLGJD nAyCxSpVLpVunRPEymYAnzsHwpfYqDKM0wC4hFW 8zPZIuVKdoERSwu6GaRMHhXOObL72joXMcV81dm 91syJ7xyV0ueNSqSOIeJjCwAVBbFGPiewWXQVHt GeHhSZopyDZrxuK5uuLcwV0iLHT8HAQbI8Pmz0c haB6xRMAgRKJkavLcqrjaVC6roeguvyxbsSBfzG IgBGgbjWfrfjIfDXT5xW0df7euIKCcZoO2FTHpJ GjqDGQfinueP2CuqWLtZW2cFZHoA4Txl3wxbD8p RNTly9vanmagKFSxCaO0WlAVQBVcRZCcoRlio5c gNUOfnX0aSIIwfsHKVJU4VGYuRBojBNu5FCS9jY E4hEHao1IthX5cz6jprCVyMKQjQH1ryOzdfQNhH FUsHK1QIxK5IQ9uz5HacA5tJ3yby1LfjNZwVQIi y9XsAKOiF38egWAzS63jr13fqKEmCEYgNggaCPN rzkIfW7GlnQytiJuyvp4hJDYgfHSeFSNcHX4MWs H8ADQwW3Fbm1AwyUTex2JayXr6VVTexQ2tmHHyo 3SsENW0gzarOJC3AABtrQCoTBHiVmxhUVWnnz7u t8z3WFEkw1k7vTPnSIf2nNWvSH2oOLWbEYTejGB lR1YuQNbdJVGeGgE5SbLsQQoek0MdyVethC0soE WylgOssHrirEzuwg5qSKrkyZYuu2RslMUxFORww lGINgm6XTSmsXoawDbyrr5xAZobTyjrUOA3FRQt jSXmUNHeAAyyECSenE4soTYip3KjHJGcrGEgW8U zQVecMMLgDaQwQIVoLrjlIHTvsG7voTZlt5SxYV PpBPOuUEsvtDJgCPQ5iA9kSLEqdRDiJZTdMhvoS ZPxyH3tnSKoi3FzCNHpnJSohircDIH4UASsvHNf TKIiQEpwDMEfbE0yjHRqs3NoCXF4iyghAQD5TVH acZWsTDLpDIwbSSUvjZ8jxGQyc9MuBXT1tzyoXP G0OZGsvSLcRUQyNd7HXAWyYuPvCQb9jBZzVJ0wX VGyFgntUSU3HXKgmQ6iNRTytPGfMJZuLRB9AOzt QUZnGoHdLtWoZNb5bALyZN0xZAOtHUHyjGMzY0Q pJStnSDPtKjCrZxVsBMu1eSVwDD1yITBiPBQihL AaG1QiCHnaRRPtObP7HST9OHamJIJdnG3frTSwq 4GsRQPbsXVuzybdHHO2BUFsrZUbMAD9XospJLGa ivTuU6XoeFbbyTeqrn3jUUUqeHMpVXN2OseiGDK pkrUnN5FueBjnbKudas4hONWxvTJlWHJ5JRR8EN ZuuO77AJW6SNb1eMMnHN7xSXXbOPKlwhCPCLa1P ZSeTCwoIFPby8KxLOAaQJKqM97aqGNiL43ms89b sFMyUPF0JT8KWIV2UBInNEbmRVDvk4LdUBRzIQF mG60xeTIcP28tr02kHRNlfiQbodQxeHVze3MysD xaufPejHCnHIW6NvdpB86fvEvkYt10QCrurF2ip 4tcsI9bLNInv2upxlfxSHVoFwN5DPL2XOgkP8xf gX2cQCQcHZQqBNHvSGNzlhrze5fgWkWkGHSeySW wRFTjYZX4IYOgxU60XMS6OQc6tAAvLW8aGUUaUW AnydBGEZffDbG9SwCVa7XglEBuHUYwbXAarlFwf FrrNUIkW3HuM4OxeqFsyKQjANIiffYvc1ilJSJ1 HCYqjMRsyGHdIxKwNztzIIL7o7doMJWsxAEbCWZ 8DLawkMTcEZNyVVHvXXrjCyHTSqXvYwJ0KFC3Tf JhQiN6GOr1QHSCKwGqBqYySqD2QTBtHyVjARa6Z Tq9IUbOKrP7XwbhDHApRMQtIYHiOJCpRAj9IYFz QBvvbWEmHYVpTWOxWDhzNRmpH37wHoLfRJNJVnU SzdH6ZJSbCYApT2e9ZrfmAKCpMqQsNGDLBRVzuM ZlZCBmcmVzaCBsYWJlbGVkIHdpdGggdGhlIHBhd SwapkGqQ0O6dnWwRJ5kRJTkNJPhR7BlJAZmE05d EOCqdD8dACJaFJ7jLNAmpZcajUPsGROlpLVwnNH lOCvkoZeot0SuYgRmhaNbOGhdAFO5PYYqCTY6QR NnU67rHJtovhHrUTBcTT7dVQ82sFAnoUpgTDXru cyhlOSzoL14TOGpvcW1DNMdPBLniTCySWBdn0Y9 ITKoiiFzaLFmxQDxAQNZeIUav5TwM3vbCD2zaDA ee5ZhpPYojZcxe3KjfTpmwmIiBVXnWLCwadSbcC VavoVtohNbGhUebWYhg7Fuev4pGP8nVUrww4CuE Rmto7uucxUvYSZcBNnjNG06rRKdDUXrVZLCGPDn MQDkpmAyaUo9HFFpKGM1zZ5pzcRebtQxz5OgcSt 8sOIlZIiqAFIuYHG1LuI2KHHaiQJlGHP1NF8dJH LhilmnPVBjWITiVVC2PKnozB34dRLlJFSlYDRgu HWkoGvfRlwudOcqz8TedIGkGZusPLLmOJZrZCme ECDwZ2DNKOOjZaS7HIztOLZbLVm9SJjkA8LMLUV dRUDfNiJ9DpZ5EaX2XCa9NCCQSj2qZtz6YGJpCE AyVAV6YEQuYQjayNOvFFcyZlajJWwqKMOkmOMzK InozlH2UATjFmOcEV0tB61nk56fJNIbebahplCa TWYxH7DxhvBgBBCwLOVuZJxiPrZzCGNjq4b4gWA 4dSUcmSW1mPYdvUzhXbItJL9wjWRaAO2iLIuiUQ bdtrOoy8VfGK09hSZxfhHitlHnNkZlvO4kHcSaw bDbnvU5bb5gsYRsuSZjGBImW73siwJgw9YpP48a t30zoLZvf4AbsW3sTKUtFUNonRDwifHfJW6bwHr mDX2lDGNlL59yfH4tGKikkNU0TSDqNCYHdwZpTJ 1dRWkdWRE4RWFbVUJvHZ5sZQUgTWQhuKOjv5y9E VEablIqiEEpz7Meka4eWXRuFRUjAGbsLLNci57i iGvhWL3kcW17YC5hMUM5qWLzvQLaCKPrGJNlALT ycUAbvPLdYA89HVI5PqSlNVwjKJWcMOAddEErIO qjWUFmH9Qkz06wDFK6llWzJSGmRJgknXEgJSVhe dduEPYce760eYTqrBMhj2Qxp9b5eDWeu6NgOWct REDwfAx4FFC0wVHnMtSpFAexPGjwzEydbTrgY1v sNEUaSBEakcojduQpPtFjQP43GJLvEvWzBGlyph CsnXJbTGBwArUhZ69gP2TswROjjW8vcMDek8VhZ rFiCqJmtwCpPT05WFMswzPzv3MdwRzwgsOmRRZw EKJ9Mc2hyWOfRJ1ucLZpWFWnczDMDOZ1nF5wQYE qEEK6DBUftzKMEAmnAG01oYBnQD5tCY0jhPQyU9 txAGShglUSJznbXlUqaoYqWQ58WAWtsjQbx5Hfa 8KzsUqoFIVgSRNfpC0oABOfJSEeX4YewWElOQGp FfKOt6syiaX7cBSkMIJymEZgNS9bHKO9MXtyATK ictRASDfjUADooxGpX0WonKrwsQemdf0gQNcgBH GqxLYtEERjHWxuXPCvA5TqyI7kHC7GWifiUVSbJ KARV7KyC996XIQikZIfPLF1YD4pcWbuPLPiV0Fm P5ChibZ9QETmjo6= INTRAOPERATIVE CONSULTATION (test code = q2jqhQEgQYMid LH1DfOrQRWsv8bxj3VtfDRdqOT [id number]) vJMunkIHktkOuzi87fAH4oJ39MR7tLPLyEfJ2KV KfisD1Hym9TWFbKSRozZOkU847h6kmk9xvpgCyn AH1lYcfYVLsuqhkHfE4DTlwQORamnztENd8QSbz PCNrmLF8XJBctSUiY5VgHPVaQE6pxzb4YVP9FWv mGCItFhT1ZVFvuKUcXPXzlUubZYitx375ZCJ2Ug JdHULbsqE4TJjhHKMiG0LwH8HiAWleMDP9QLYiF TAbZSXpEHFtIAArNRqrowE1f2qsGYUwiEPfZHK9 SOnwlIJwPKIsJBNrZSdzFyICTzXrJgP4LKQ0ByZ eDmW1XMb8CTFJHaGkMlQtZfL6CTUkZOymRTz8CD s8FQgZBfE4HmltFnPpPMXxEMNlQTYkLYe5QDOvZ PgutMYdGIOoCIKjLWyoCDxzX94srLzrhA3dSuLz MCBBLiBCbGFkZGVyLlxwYXJcZnMyMCBCTEFEREV ICM6WAblYCnmwxHMzTE6TKVICG45GV5HWKVYSNL GHR3MTRCKIEVSUZEEXVx3NXUUsOE9MDNZXECLJL M1TLEDitvFcQsOABUBRPcFhUn0ZIG2HTadEASWl W9HDI6lCY52OEJQtaaiuMFGaVjZza8W4DKCaQny dIMZgQRMpdrYcQZ6qDOAmPcHIp6qqoO2cVVQzGM xdJuKbtL6eDHGxQBGwTiXvUxltBXNzQUF7QN24P YGvpQFoNYU0GW2lvBnaKTSwI0OxR4JaeaX8MKCl cn0= Gross assessment was performed at (test [facility] enter, code = 2777) Department of Pathology, [address] [place] [address], Technical component was performed at [facility] er, (test code = 2778) Department of Pathology, [address] [place] [id number], Professional component was performed at [facility] enter, (test code = 2779) Department of Pathology, [address] [place] [address], [facility] [id number] 12:08:44 Test Item Value Reference Range Interpretation Comments Case Report (test code Surgical Pathology = 104) Report Case: [id number] Authorizing Provider: Matt Ahumada MD Collected: 11/04/2022 11:02 AM Ordering Location: [facility] Received: 11/04/2022 11:06 AM SERVICES Pathologist: Ruby Cole MD Specimens: A) - Bladder, Bladder Margin B) - Large Intestine, Colon - Sigmoid C) - Ureter, Right, right asaf-ureteral tissue D) - colon, Proximal Margin DIAGNOSIS (test code = [id number] 3220) FuZzEwMzNcZnRuYmpcdWMx IHtccnRmMVxlcGljOTYwMl gqggQyPQYpqACjG0Vibmox ULndTN8vEA6nwPritNDwmM DtSJPjKxWcl8dcs725yTCv c4usOTNLbkhguPe3pLkoE8 7ag2W9BtxdU85zdJDhKHN6 DERiLKAadTZuXHKcIKN7JK WqcTVhU6fjKLIbSH8jjwdw VOgkWIeeQZAxwUD3NJTtfT UzT9LqBLEwBAziEIWgwun7 UaKkCw6atLFowKrhRCjsIB VfBELeGJugSHZhKrVtYY1x WeaHIGUCSqmqIMVRL8rTRI LHQOAKA0rEQsvtKYSnqnLj KE2dUxrjba8cdCBaePptch X5oXXrxWUfq3x6bAXnkFEt osegTEhwFvgcdK6xwYgzun 2dsJPbTAPeACQDUGlhdBy6 VHBcm3GdV7TuF4zqh11eHV JbsmpzMRMpYm5eJ61VI02k FFEAV6XJOJPOJAkLN9xXGF BBTkQgUkVDVFVNLCBBTkQg EEAFMRqNEAxuPHeDRZ2yTB JZDBXUG8SrOvSTXJADYH6E OlxwYXIgICAtIEludmFzaX PfVVXiKK4zU3OlH4rlv61c MU7eYYCdTRRlCLT4n7XjV0 9qaFZdE14hn49kRB6iWLZv ZEDxsFjbBThzWoMkUV72dL G4VZLfXJwcLROpJCRzAHNj clxmaTcyMCAtIDEzIGNtIG dkEHgfSGN2WQV8HJLwrJBe w5abkgBozv2qz8d8MCThKC XrB88hfCWlaUxeAOOnXFZF avSbNKXfNPCqKEG8fCThOZ SimANjUFJhtJ7oCRWwXJRk lcCuIW1jQ8G2oBKaHNFehm SnxZ6hsV84OVQdtYrzjsFi evAzfGGvxV4qxQIunNNekt Wsd5xwjc4ouMEwHW9tDUtw SF0sigcnwqIpXXAfRZjrYL Mkd1UlBWRjv1zavFXpAOHm XHCgcMO0UZsaBHLyD4Qzt2 jqmK4tPXMqqa84xF8lkIKh bmQgZGlzdGFsIGFuZCBvbW UrzBLoGB7cbvreaeGsvuEt VWRcfrJbJp5eBKrioqHkqL BgXJArawOcdj9nBROoawIz aLmlGTtrEBQvTCX9e8NnKQ NpYVxwYXJcZmkwICAgLSA1 WROhiT1iyHYnn7Lojyuixp UpOLUlyuBwCo8sKV8qkPiv khWwF2maXIPkMFZaDIDdhl UvWR5XPYD4c4GrK63aqSRl aKKjs6Jux5m4xKPaoSZyek IlT6Iis6DbebY4sIOlLMYi klfgw5uszwurWLBmf7Bfi3 KizA44m8u7fP7aHCKrB9Bg LSJdvd5nQCmqOurdUXNjgt V5NRufYBJvmDnxv5eaVIMi ne3lVIisTYWlPUHkAHsoLM AhWF51H81hDAS7yWYjJV3n KNJyM96nVsncNK24RLHmwO bxgR8dqSDvSQTus9QdRWzl dHlccGFyICAgLSBDZWNhbC Mqo1hjiyHxzMXfd1Gzv8d9 pNBcffDtmGsyyMKnD7ChfM PzaMK0m7VgaPffhF5xsXVk TZTum6OcILrhiBdtMSBpmf feZLZcMy3cO31JHHFDDZIJ SDIzJYHSW6pNOTXAXpoPCd WWBSWTLQdfSElLXCRGI105 QNWlxuRpOR7kMbxumq9zeN AoxBbvwbS4dQJiqBVkl4d0 aCBjaHJvbmljIGluZmxhbW 1hdGlvblxwYXIgICAtIFRy SO5mHWB1ZBLbS8Kdwy5rgE ljIGNvcmQgaWRlbnRpZmll AL7esQXmYMZwfaNBRdDSS7 xPTiwgUFJPWElNQUwgTUFS Q4fEZLYIRYLZZ0gIRkgvkX XsWWAlRRDOt3knetkuLB13 J93iPPC5tRRbUY0tIEGlA3 9gGqyaGQ76IGvnm4KfaKV5 dB6ns6qwVoTlNv3zkx6gyU h8jS0zrECfINVtZWSzGGAw qxuxogHwKRLzcMa8FDBgvA 5ddCEkNL6dAMOpcNGiKCZc ogrvDLFgtpTbOH2nVNEICR 3VZ7wGQiLVQK9MSkXWNBHN GJpwyVS2CXSHDKZTiPRaUF fWBbF1RSzfCTAZAFjIQtfw cGFyXHBhcmRcYjBccGFyXH NvgfxrAJW7y0yogGVtLLTn dGUxODAwMFxhbnNpXGRlZm tesagdGKDnTDN3mwDsWHRw QTpsFHCrTMmaWb4deCZysJ slEeRqKJIwp6ixyiVJopew cGm1d4utCFJjDfL6tZPkGS vzA9lldqWnzVKzERWwSLw1 qY48RLCodK6ctGHdHRodbt IxVpZ6XOgqUGXiDyR0MAFw jOYcGKHaJ0jxHUMuMPidIG LeERervQRuZTT2uFzcm9E7 bGVzaGVldHtcZjBcZnMyMi CDq6ZzEBh7vGuiV9HgAOTc BwV8lROqJAIfIWgsJGKkQD MqbxU1yI21BIilxyP4uRQm p9Vkj64vd688aW2rxJUiFP Z6BLPeQGBqeSTfDVRvHSP1 JHIelWGnI5miFSAmCF8bmj dkJGgcBNejFOPsrKK0HDLf dXAiY7QdWZSuRDkgIVIbgv j0IzCeCk5pgZMwzSbaMAlc n3gkf9orxHAwMfl0LCVpHe JxBwkcQVepx0Czr5ygMHTr sl9pPQL1dIThdPenk3K4vL QmSKGqfYRoOSEtBY7lqFHu DEFdkF1qoiurGDWdIcIivh zkYZEbvKdxnbUaFx2gnIod OPK0BCrvN6ypcJ4zOlC5FP dlT4cmbY9pVAd3TXvmTBYy xJT6efM2TEWixEVvY7XbxC 2mWDUxSQ1yyuh1d2lrBAS2 NBerGMSdIgX6skE2AXHdcP MjAENygPllIOtjh166VQF8 TmUzNTQwk6TmQ6MlfXohH9 0aiGdtU93gNKUmsVyrbE9u yLgmoR5zIwCeRnTmQHikjS luFU4gCXRyM6amvCRrDYUo CUTqA4ldGiQxrK5mgKesGV rtphQyDEJyNmu1NHFluOQb GFHgNcd3OQLuNMNfB62asf jmYRY6iX7fn6cho5MeDUhe VLS0LIOpw77aVWviotQ3UP ffMz30YWswFGU2SJvqTOT7 fQ== COMMENT (test code = n8ldzORmODYgeSH7ZrMnZG 9659) Lpd2dxb9TngISjjPGyMLgz aMCkygVbtq01iIS6xG51PQ 6sHJIlDqK8QCXpbrT2Qdr9 BPOcZNAyfFXeR469g8yze7 xslpYrcEK6HWOyWBVrJ3Gm EG3mFCDojYUxB41lpRDqNE X5TECnJVZavQJzNDKaGCM5 TOJgmIHiB9ujCXDlQB1obg vkXNsvUGwyWTBevQL1DQYi kPOdX5YbXGCiYHmcDIJhcd z2NuUgWf2nkCZdpUauNGsn YXJkXHBsYWluXGZzMjAgVG waJYE5dI7zGUkflx6xpfYo ISBwKZVrBIQ2z5LqJ47wfG XcNLEjPXSpt3QjJ7qglIIx CHoeaIroFUl1GII8lAH1bS b6mBWpz0o7lPVsEMUcAGHw cJUhoDAamE8oEHA8VSyvDX XsO2DswdLpb9FfFBJpj90b o9o3iCEjXZcxc5wmduD4kl R1bHQur37xoLhvTd78FLqd OQ1eEBSnCQCrXQNmEZSTsU TfcWLpv1BbrEMhrA03z6q4 dB1vMBBqIQQ3hCIfVTCwlK ZhMZVwgI8dQKPaAXsnoGwm QLBdv7CbSTEkPOHduiKfMB 8wUVIfy36aNV5wTHYkWkMa ep5aOJhoj6G6ZAMwAM9jGG X4sM9eSMytopVdVCYwaVad aTXlYSbiSZPkOXVjp2K6bY 0eCG3eMLZnUZKoCCNva4Oe qLasd6Bbm07meFxcVr60XC obw0HyJ1VmzI3dJMBUxVMs GFBrjsShBXX4KzBtNHOvy1 DnwZQ5rADaEK3cwSJnQTJj YmVkZGVkIGluIHRoZSBtYX RqRHF9qPwnzKP3WOWxW0Jc s6NyjARjPCSgbSsahACjBD ZgDEXumRXqNWe6ThTUz3fx epLtBJFikHKvyfZ5gQZhZI x1VOE7vBB4pX9iuVGpkV1k jZraQLZzH71zvCQvXCOwkX MbjRA3GSNnfefrc9WpjNLn PYLvDLIoitYjqS54h6n1KA 9ooiGhq2MgLZf1LMZ5gGH0 vJZfb3l9tVIip4PgG1iyhJ VkIGRpdmVydGljdWxpdGlz RLFwVEG2kY6scs8bQQ30XD IlnChrNWKkwJNfX6YwPVGh qcVtELS1KFWbWXQynNEzMA LzGXFmUBXtVWbncRtupi4d lNdpzOzrpz9jBLPhwoDqfA ezpiCewNF7U6N9xiQpMIax lh6kgmSyRN48OdupTFFbkD FyIFRoZSBtaXNtYXRjaCBy ZXBhaXIgcHJvdGVpbnMgKE 0XWQHbYC0IUFYgYM0MBDGh HF2dSUZGVmGsGHondgBayG 76SOI4FLKyBEWoxtG4vTNp kZUwo1MoKvqtqZY1EEZhiT 8aoEUiVIHgGYZSBfLfHIU7 TqPmX5KiKDbsJEBorvjgFW JccGFyfQ== SYNOPTIC REPORT (test COLON AND RECTUM: code = 5765) Resection, Including Transanal Disk Excision of Rectal NeoplasmsCOLON AND RECTUM: RESECTION - All Pdmdmegwy2pj Edition - Protocol posted: 03/10/2022 SPECIMEN Procedure: en-bloc resection with sigmoid, rectum, cecum, and terminal ileum Macroscopic Evaluation of Mesorectum: Cannot be determined: Due to mild adhesions with the small bowel and bladder TUMOR Tumor Site: Rectosigmoid Histologic Type: Adenocarcinoma Histologic Grade: G2, moderately differentiated Tumor Size: Cannot be determined: Due to marked adhesion with the small bowel and bladder ~ largest dimention 13 cm grossly Tumor Extent: Invades visceral peritoneum Macroscopic Tumor Perforation: Cannot be determined: Due to adherent small bowel and bladder wall Lymphovascular Invasion: Not identified Perineural Invasion: Not identified Number of Tumor Buds: 2 per 'hotspot' field Tumor [place] Score: Low (0-4) Type of Polyp in which Invasive Carcinoma Arose: None identified Treatment Effect: No known presurgical therapy MARGINS Margin Status for Invasive Carcinoma: All margins negative for invasive carcinoma Closest Margin(s) to Invasive Carcinoma: Proximal Closest Margin(s) to Invasive Carcinoma: Distal Closest Margin(s) to Invasive Carcinoma: Radial (circumferential) or mesenteric: rectosigmoid mesenteric margin Closest Margin(s) to Invasive Carcinoma: Small bowel, proximal and distal Distance from Invasive Carcinoma to Closest Margin: 7.5 cm Distance from Invasive Carcinoma to Radial (Circumferential) Margin: Cannot be determined: Due to marked adhesion to the small bowel cecum and bladder muscle Distance from Invasive Carcinoma to Distal Margin: Distance already reported as closest margin: 7.5 Margin Status for Non-Invasive Tumor: All margins negative for high-grade dysplasia / intramucosal carcinoma and low-grade dysplasia REGIONAL LYMPH NODES Regional Lymph Node Status: : All regional lymph nodes negative for tumor Number of Lymph Nodes Examined: 51 Tumor Deposits: Not identified DISTANT METASTASIS PATHOLOGIC STAGE CLASSIFICATION (pTNM, AJCC 8th Edition) Reporting of pT, pN, and (when applicable) pM categories is based on information available to the pathologist at the time the report is issued. As per the AJCC (Chapter 1, 8th Ed.) it is the managing physician's responsibility to establish the final pathologic stage based upon all pertinent information, including but potentially not limited to this pathology report. pT Category: pT4a pN Category: pN0 ADDITIONAL FINDINGS Additional Findings: Diverticulosis CPT Code(s) (test code b4qxcCVtCVIesKY0OjQvCT = 3357) Yhj4bos2OijAXwjACmCMwt eMNillGgfa35hTB2qB25TK 7xGCMzFiE1KVCrjgN8Uix2 OJGaIIChbVOdP373o7gpq0 nelyXreIN3vRgtAIOgoecn SmL5CCmlEZXabnyyBBt5PZ ivBXMheKV3UCGjaDXaV3Wp BXJoVH9jxjm3OYF0PCoeNX OdTvV4BBVbaDWxFKJlbAwj LVyqm700DDT3IkKnZGOgor TljDqneP0jYgHpHPX6BZTh IMA5YFrkNDYgHQdoGQI4Cg bxHUQfUOriXFe2FQdrYGKp IXcbAyVhrPZcULn2YvBbbL JccGFyXHBhcn0= CLINICAL HISTORY (test i8ndhYKlYQRuvZC4VvRvLH code = 3356) Hkh2nal2QcoPWkyZEfGIag rCMzjuVmco80oZF4aO15SL 0kPVOjYcZ2PRBthgQ7Keu9 AYWnSYUdrNMvX585u5goo2 kutvFlsXN0oPtoHGHzgipr FbW0CKwfOVBhswliNAy4WK heDPVffHA6YOGhbKKbM2Bf KBGvDL5akwe5EOH0DHqzWA MwOcJ3PUNffQJxAGXvvStj LKyoh988NZD3RiTkNHFddj KhrIkduC1uJpLpMQT8KsS5 By2yAM5sxHQdk9z0iQRhVS YTHYRjuWzciEQxF4YfhRVo d4PzQHTMNZFjCEDNKOY8Id QpdFInLfPsKJZySAJvt2mi bCBtYXNzIGNhdXNpbmcgcm IevEOpV5Nvu3QgvCWiN30n rOFsv0PebYG0T1Smz71mNP Bhcn0= SPECIMEN SOURCE (test c6ptmEIbCTEzsGY9OdAgSB code = 3377) Unp5fvx0OtqJXfdRZePMqm nBIeqgCsce45rYQ4kW51EL 3tPDSnAaJ6DDEywkF5Ykm5 VNOwHWXgtGJvK884u1enr6 upbvRxoGE6qTboSSJejpcb CpE8EHmfOPWodtxhGNr3PH bvXEFyfYM7SNOvwUXlN9Qw BROgUF0zndg5JKV7CDogYT OfPgJ1YOSdcEWtNGYoiRnb DGkxc775WNN4QiTgFNQmmm UkeGcffB1zYdHmQEQXATV5 m3AuH62txDDwTKPvFAxtVE Ccl7AdZPStyAGpSRKkHJGx cn0= GROSS DESCRIPTION (test j4cgqMKeJZLjjVV9TvFqQG code = [id number]) Dwp8oxg5KguGOmcGYiIYhw zMDcxhCecm85jLK0cW53QO 6xBZHhBmE9FXEtttU0Vca1 LYEfYEUxsLSjA023k8czm8 fedsFfpQG8eHczLCQuzyqf CiA0ZJaiQYRhispuBJg9BT ejVOBzuNB5GZGdtRYoZ0Ws RNCpMM9seev5GQU3MDulDE MjLbE1DDNifICnDKUxxYjn EEcqd234NKN7MgJiFMSinj N3KFkqMHHcZ8LuR7OoMDnm UDL6VKAlPJVxXEOeQNIfTN EyLHbkgnI0w2yjDHOmgNSh QZD3RHvwqBAcFFOrYFVqHC huPyRHNoFcLuI6EFF6YwNu IkI4XOv7MFSDMqJvZlKgIu G4WFBvZRzsOKn3BVx9KWnM OxR5XwndHiatQtgvVMHgQV RjSOn9VITxWIvvjPRjQWWa ILDaAZttUDxaK26aqOjeeN 5cZnMyMCBBLiBCbGFkZGVy LlxwYXJcZnMyMCBUaGUgc3 DzL1lbRZ5hpTXhjaZaKWt3 JLFcSfJhl9jpLp9nVPRjx9 mjxbWnUEE0nX5jAXMdERfd p6HvxjqbxEQzUHlaOKQ7kU DiQAQqBLLvTSCiOT56BCtb NHMgbmFtZSwgTVJOIGFuZC AiYmxhZGRlciIgaXMgYSAy CrLfpBEtMVAaKZWdi4XlGC 10MVIfIMxbaYObQIWvVrX4 lHi7VZXduUMdw3CdXWutcP IaNKY3szIhAUCycXUtVM4l JUYnLgRohI8gPLEfSXFofB Msb5DqiIQqnH9zYE3axhxd FizaTmVnGHvxIR6vntukrf BpcyBpbmtlZCBibHVlIGFu XEB7lEUyp0JiW7vwDQ0idD Pya9QcfJOniOdwd3OwnFcw syJ0exTgYWCzTYsxyX9hZY 1hcmthYmxlIGZpYnJvdXMg uWaxn5WwKzPyPNkhUWKaME NpbWVuIGlzIGVudGlyZWx5 IBS2Ek6wsBGeOC0qjXXhFP HlveKGCUH9iB4yPGOrQXF9 XHBhciBGUyBBMTogVGlwcy nzx6LgaOw8nLIgNSXbeLPt aWRlIHVwXHBhciBGUyBBMi 1GUyBBMzogUmVtYWluZGVy NF4wNFLuNMWmvIXuMUFcjg ITH2lhCMFcN2SoR1XtrpCh yHJoTAWdrwMom9znTCE6MN NsbXVsdDBcZnMxNlxwYXJ9 h9zwYYKxiTVoEBS5CAbxhU QgNTEwMDIgXFxkYiBPVlIg MuM6MUZ3YnGcPlM0VNp7BK WAExSnFdYsVqL7QHF6KuSv HQg2OVy4QEnOTbW5ZkkpIR RnYytgKRTpRLZaPSe6SICz XFxmbCBcXGYgQXJpYWwgXF jkD05vGuHdEJLBKkHKKIIx ELUFtkAkh9LldiTbHPEjdO 4dOR3xM8pepA2pGI4pnMHh GNSsVqZfX82hNEeqEKDsxh EvPMk3IFXyNzSec1tqaLIt OAbdETJ2lEZzOQEpARRpCW CwYW19CIuhXQIwguPoFLop bWVkaWNhbCByZWNvcmQgbn HwIqZqKYUyNGHwg8pwsT1f ZCwgcmVjdHVtLCByaWdodC Wzc3qrfvCzuOWkJS6cQF5z OhdcEbQiVNFrK1Ccb90exF 7maX0grZIrEKM5YKMrcC2n tIIibAI3kAJgQDRpWOJzdK NxmyFwOR3boQgnUQXxYHWq bSBpbiBkaWFtZXRlciksIG ChB2EsQCt4YaLpW68ycD2l eJNhK3QyGFBsQCXpDeNbN9 6orR4iRVfzzCF6TEOcIWZc EXjxt9ApLG7uNJ36xM4oGL sxcRDpXUxgVS1tTXSuKHnz YWRoZXJlZCBkZXRydXNvci FgyEAqbHQsYKvdFxW6DDzf bKEkPrMaC04rCVTiVOBfm1 NzaWJsZSBhcHBlbmRpeCBv ktOblYKsnbHxB2TuAQTxNu 07QIOqFJebDAkhlhf9mCPg hcPxDM83GPRvOUgmUCGkUX 8ktDWmJW6lTSVjZXYpXQut IVExeK4lGADuiOPgXQ7smE 18OD7aSJ5tv1WwtUPloH2b IFxwYXJccGFyIFRoZSBzZX Yle3JxuGAfDUljMbDnPCr8 XMPudezog6WmPHX8dDOgTA DdwI5uCZ55GCScq1MjoZYy JwKiYRcsl7xeepXhZZUBsP Cwd6Srq2NvLN4oURNsHMGz zSKjfBNqOInqNUQhHmW7u3 EtaOPzCL7unrNuJDclGn1u ZIRkNFYmLGA8qSNkcgPrRJ gfuiExSDBuNVZrPYQ7FSUa vX1ncTPszOF6kKFtvdFtvL utCRPdxr9yxuBxZHxbTVSd RQtkQOHalBYsEBXffF5soH syCEQmG12meIBtZ28if88c LIKUqQWvk0ObP9ixIL0ovI Lqr0JfnhHwOSKjYUGlabTy sKNcqbCjwIptGSMxmA2vJC rscLsegd2fXLMfQLfhbCrl agypP7SgeDmsu78pwXZhZS 8mf7IqiUFdDAVld9AmUjUi VBNoDUyjNTIyPKVhJM64DN Vjo3TayPpfIJHuTFXpmPMu YJwpQt63OQbaNV8xESexRs 2rDQSlQA3iYWKwNWLsASSf XXxrWEihTENyvWPnmc3pWV SpNJJgzHY7ZObxueBysELt ZL5pdlcvcwvyREPrVPRiyW Vkzp8wVIFyWWOhtq37zS3b zZQmrDpgc7oaMK8moburtx xeXa3gIDSvHFThg10rlAdg JFYhjv1svjDuJRmiDFHaJC 4zlajuvadgDa23BKQjTUNh o36vmEzeTOPuS7MeLMXanZ 0lQI9agcmhsusdGN3cERMl DRRin61xgNrpMJ7nTL42uV 6yiTDzX5acYVBsaLBva6Gs aGVzIHRoZSBtZXNlbnRlcm hgYI7dpfoxqwBsWhE0mGDp phKgvP6xzIejp6tuNDJxbS 5tTMKidbDcXEZ9uJFmvHtg NOYhui6jHMPsZaZ0hWHwb4 upoB6kJCBri4yzrh7eHOtz YXJccGFyIFRoZSBtYXNzIG FlSZTppw16GBnkgh7umxGy qEtpUCYiue4llqJnXGabQE QzCC5wDMXaR7PkUL84A65c OF5hVAUmQUJrKOLlTVZqJR NmMf0jbLTrjkHzKmZuDFXz DYiiYAZlBAN2QBdjKB4hPN FiQDN7WMLfcQ2apLTpqYL0 pS3gSJpoSR3aj8EiTF5rsa Zkl2DtvJ89r8n7MPA3nBTk MSA4whXue5MmlNOcL1zgZe WuTOrokqQsXPZzUT22gKPe hTnmUNUulpciD7QwcOBpoR 6akRCgp5OqiqEjYW5ioG4m EEDzZr0fGlykG31lAMGXJU AbjaUpJW1cLUSbLS5pVMOl QGmuc8OnhUyqpM2ipIOmkl UuICBSZXByZXNlbnRhdGl2 HNRiTTO7pJ1moiGevzHwm7 IzvQu0bTKfAzVbW7Gpn3Ab rZhwyQ1eoiItwVMdTWOwXT Glp6MrMxgcAWBicAXeJQxo uzUov2GgHdqkMJEzZnj5OO rrOQEbML94QPHwYnXpHSSb jA0tt0SwTFEgHJ9btS8mWQ TflM4dURdxkKaxoF6qBsZa oBa4X8qtmVWnKHIjTILoQJ spsFQjEQ97ZLZlBiJpSVWu sS2lKJJuhq3pXXLeNqKjLF B0z6RlW00gxBLmI75jp35v rJOmNS0yXC7tBFA5BE9sn9 KezY1hV5mew3GrcUCiRPKg d6Dfp8WuuZuoCRVuS47mvD TuX24pa35lePObZOviJCRi FqCShLSelWBgEQ9wekwxps xwYXIgUHVycGxlOiBPdXRl boWrrBPiQPDjMO1eUFX8wP DauHKaPKSypWS6b42mGV05 l0MnVAqdLAHyPdFhBzQAXQ Q7lQQvg6KmdXWylrWmTrga HDYeu84jyFCsmL3zQZWiw6 4nsAlyDZGlwRRiUJCkI8Mq x11bC98eRZiaeNMyVWGeRz SBKEVzmH0pxNXyxWM7wTWs OAVfgY9vNQ4uWIBdR0v7CR LzdB1fDS8lukttwiixUU7b SxJfHZnoVTPdPtG6WAhyDR 1wUDIcrBL6FYi3BUtdRMJj JlC5BFIodTAup3CiyUC5nQ UsGS5aEF5rRJ66XSoeiMFb M8tuIRAqrgRoCGDrFBEcwk LMSIB3VK4xo4MahEItoQRq hPUkY5awRE0gLSFbJ7DhPS BlbiBmYWNlXHBhciBCNTog THkkwXYjDVNeL1CqyNSlGH XsfR1vYJJjXCUnO0BzpTUd NVN4SfSGok10yB4tzSAveP htw3ooKXGwzB5aRE5wotqq zdtcDI1xMfEdUUaqBKYnEp z1KK4dj8KzvP7zoS1rblTw eJTdDLPnrSlly7mxFCCvnL 9dBZAptzIRAKzrAOM0mbFh x1PerTAjV2ixMRUnFB5nDO 85tZ8upNZsCXG5CDylOVL2 dzYoy4AzxNWgF5yiVVYbQC Bmss7lksNwAUwyASIlRGTz ciBCMTAtQjExOiBGdWxsLX QluAXxyvEqnkXwARW3gS0u FQ9xEPOpWInfMOBaf1ErJC FdSTXnN22plDJqS69vn69o vJ0dfC3mdTQwWTCxTmAgIG NzXHBhciBCMTItQjEzIDog jTOohfJ2ubThsJ5iWLG2JN ZwZ5Qcl6mpsG7iVMRtOHAf gyUurdneGN0bbecbbsgvaC VycGVuZGljdWxhciBzZWN0 pB6ji2rhIKTwLcY6OJPmTH noIWSmbbvwI4NrfEQoKK7n TKHjF7Jih3jtnY9jXHVjk5 suotoiFQYjAbE5XjNJDRNp RKEtvFcaf7pcCSFwjQ3zWZ PbubXQRSS3GEWqRRtlVSp1 YVW3sWO6fBEgb9ByhY0ck0 vvhBLrHRUzDV0caSewqBXr GJZeNH0KLcR5EO9us6XbaP 8xI6lgp6QddOUvBEJkt5Hy KVRtX05kyNXtB56aw56xoD VfHAOuFpgwQQLhelTyP8Rn fTmvxWasht6wMMZjcGPcAM VbOH2XVbT3GXSvE7Tjw9Zt tNZbt1GzpEz7TESzhY3uqZ Lep1TzVWP8gogcMID6URYx hJHtUAOnTwsdCOUitd5jg3 y2LETrv3y6kPTfJId9dEQy DK7kRYZnMJBdpFRcR9AsFA ubRSIsPeY7AdSlZBfhz9Rm rGoxdA6swLIedfMpsBkfaM howu2qODiffJQfo1KenUTf FMZrdlKVLxz5JUYlmUfqhR qylw1rHYwaPsalJTU0MLTr gRJdTJHiFCwxQLTxfA4krB Wux8RzBKBcsNVeZ2RzIJcr YXIgQjMwLUIzMjogMSBseW 8slNMnj6LeJLDcNYXbGDyw ePMdOJP3zK5gBSOzxRMgHD GnXnbaHDCnvB5yaBKhs0Zk WWBwuIZobrgePRX1KUNdwW XiOMQtBUoeERZnoE8hpGVv r8BvURQ7putjNOM1VSIknH MmNZTaWCydHEAdgH4abXVx s9IfNBU4vxwwHIZ6TDCltI SmFUXkKw5NUKBiAePzZLe8 jCEyYW2xGYBfFgzfTTW7HD XpyD7bONDuuUUyHJApLTQ5 LGmqYCQhFkCyKrPvAUl6pY DnDB5aVXMcOXMepNSxZ2Ck UBjkSNKcUdFyJhEwJMz7tM NtNS4wDKKkLJHbeBZzH2Cl JKsaMDJqYyB8EHO0IDyuEP RjvY1uoZJct8FeUBUffHVr stuyVWM5SCEjeQQmQJU2De lvSBXtmbGgU6ZpfYqbxDpu hm1sUTIhjRBcBKD6WvkvEM PcwiWrT2SqmJorjMgwsw2n GTCfeYSfVWE7BUO6BSMpnT 21CRL3VVk6uAGhNK8bLFJd SDYymcMXAVc1RTIaWSgkZP Pei1RqVTJaHHUxG62kkWBv I56xb30pkFKvQJR1RO2UIZ X3HSBjODjrXXPrd4IpYPNb YYOpD01xqEVsH05tk62pWV ZgbuPbnyUisUHmw3UamAbn ueKyaPGoQNV8BianT13qhP drQb70ZVxoaN2qx8talV5z LDXac5avcsbpJFXuAaH9WC K0TFkrX8wnkE4zBWUhGETw JEQqEJKnjwlcg7hxPxQhSI WvwTFoXDGbYPE5YKZtlQ76 MGZ2UZt3qJXfIF2mXKDrGG DlmnSKJPvzZqH3EsKRc8Mk aWJsZSBhcHBlbmRpeHtcZX QzP5ItS1AwrtRwuFKsJEEg hdDmp9dlZKM7XSDehGWqwL WmPnKtIaxcOWZ0e1eoVVNn wUStAMR2KBznlIGkTWLsGP ZiHDhmQlDRRbSvPjC1LHA1 ScPfOrD4LNx1DJYIKbDqUm XwLlY7HFYgWbUmTHq4ACc2 BDkOPxT9HidjEWBtOZWrAO DbKIKiWLp7JEOuQRtenBHz IGUjTFIqFJflLJwbX13bFu EuJIBEHrSBieM6AZFtFIYj F9t4CqseFGFaDcTjWHDUUS NlaXZlZCBmcmVzaCBsYWJl bGVkIHdpdGggdGhlIHBhdG hyrfFhO9I0hiIlQM4eOQEr LTUcF8PtVBQfO11mSGUwiN 9aYRFqRF4hCVZycCubxCHo ZXJpdXJldGVyYWwgdGlzc3 IsDaDqbmJeVMtmBXH8YWJy SPS5LNQsL99qNErgovZyQR WoRL4sGA85jQRzlJjbRDXu rsozkTGtgS75HUFdweO6OI KlZORgfFQsNRBew5G6IJLo cmFnbWVudHMuICBUaGUgc3 QwC8pdSG2pqAZnb7OwzLRt jRvrv8PdsNyotpSaLQDkOL JldmVhbCBhcmVhcyBvZiBm oOWxe2Gucy7nOR0eXOdfz8 IxUBkwb5nymmAiINMcOIbe PY83dENbXUJiNBMPPSIfCE OqpgBnjZh8LZMaHVK8cO2p axYndfYiq7ApfGa9qMNzNI maNYWbPRS5IiU4TFVixBFk AHU4JM5pICQxbgzxQAOqGO AvTJY9BOhgtI31xRYsRVTe MTZccGFyfXtcKlxlcGljc2 VjdCBcXGlkIDUxMDAyIFxc VQYnT8BYZZCnUxQ0NBpiKL ItMNm4QFniN1QPAYYdRRDc WyZ4BcS4EhW0BHw5EBADTx 1wOyi5JBLgVDZcDWP1SBAo IFxcdCAyIFxcZmwgXFxmIE LunGCzSQhnhrS9ESNdZpYe GR9dY47fu87qJUHwvuiwcz XmKNMtI4AgblGgNJMhUNZm ZTzmQoOuSYMeb3b3jZA1dX PveWE9tKLrqHjwIlXhJH4o rWIzNP9pYJavKObdjbLhq8 YaJU60fFEovoHesiAwTwWz tK6qRlFnudKkzpU8qy2bqR QwkAGwTARpA84wetHut9Ax X22qk23atQWtb5JezY0lKF DxDLOiiZKfbsUpWM1biWnx KI1hUTCkJ79cyT4aEHkndK J8TPGfEELMnyYjUM6kKUvk FZH2PWDzKMBpQG0uIOSpMY BkdFClq0v1GTOpyoIteTIb z6Hwnd5sOIJnHDWmYTpnJY Dqi11ngChkKG7srQ78SF0z BVC9rIOesFFeGCMhBQOlIK QnlNPpdANfRT35VDO9CaQs VGhlIHNwZWNpbWVuIGlzIH JuF2Pqx30xLIW9abPtMELu YWwgdGFuLXBpbmssIHNtb2 69vKHwxJAan2Wfw1l4fKBi t6MjSAjbRQItaMd4LQW1eF JlLiAgVGhlIHdhbGwgdGhp V1kxTKXqETWfwpxlrsLhAc IhIA75JTViXoNrZPhpgnGg oCYaGJTyBbOpY05gH3VcfX HfoC0fvRAfd3MhQuFaVcVy jrJmFX15HSPxoyEih2LgwL bnilFaMRBkXGC2Lk9ozTCm XP1yeJBiYNTyodTPGDX3yP 2eLKTzJNH8INBcnrNYCKee GF83fYFcIG4yFC4zgNFlM7 luXHBhciBEMjogUmVwcmVz UV57AQIhfvYkl7Iwu6NdzE cwUORsBBOmkM2sAOOvTXNz I8HkzXLaWBUaGdHPv7yfzi P9wFDoJMLisUMeSE4lHHA1 YWxsXHBhciBENDogMSBpbn XbH7XacWzqhDdxeb3zEOce YXJccGFyIENoZWxzZWEgR3 IcnW5aSE6VQcfdIXYbCBLR L2DhU761LNLjqORtUHU0RJ 2zgTknOVWoR4PyF5IotnK8 XHBhcn0= INTRAOPERATIVE q8dnnNAoIUJhsZF2DtMoTW CONSULTATION (test code Gwr1clq7KxgOBjeOKqXAdt = [id number]) dBEfteLkeb97dDM6lM36YI 3mGWEqAeH9SAHasiN8Yxv9 CULzRQAqiHBvZ238t7mty9 rbffEzgOS7uKguZQMnmctx RcG4EMdwQFEkqqbrRXs8AH lbIFMrbBI0PLQheWIbE0Wa ZSAeQU2edyj8PNQ4XMzbOI VdWgG1VJMbeQChHCSygKti FBtbf994OMV2MmHrPUIbsz G9JZmuLOUvY7BnB1SoTOlc BWZ3FBUgCPKbYMBvBZBhDT ImJKrtebN4y8cnVRDvkFOv DOU9PRkbdZJxJCLnEOFiAM ijPxYHOsUuPdZ3DUK6XyBp OjY5RTo4EPKRGgHbDqWtLc N0DDHtOIcpZGi7UTi2QHvT CnU7PofaOtXhPXZbNKHbZD WfXCb3MWLtHGnfsEVeOTPi QNZkUAjeUZhfD35bcSagaN 5cZnMyMCBBLiBCbGFkZGVy LlxwYXJcZnMyMCBCTEFERE LWAF9ZUfhDQxytpMMpMO6Y BQBGV65HX2CUAALFFFRKD6 SVPRZZMEQETLUDIu4BIGXu ST7FHLTVJSVYJO5VOPEnuf JdHvEHXBCKZrVtLj1GAY5F BcbGKHBtP5SZT3bMX61MBW HfcmpaOAGuRgCbk1S3SVOt VksvRZQiGOGnvgYaKS2aAB VmCjVAp7hgiA6tSERkEUum OjWpaZ9pAXCmJTApLgXdIy yeSZLnBXF6SL56WVKlcJFm OBM9QF3umTtuWJUoH5McL8 ExvgW4AKCqiy8= Gross assessment was [facility] performed at (test code [facility], = 2777) Department of Pathology, [address] [place] [id number], Technical component was [facility] performed at ([facility], = 2777) Department of Pathology, [address] [place] [id number], Professional component [facility] was performed at ([facility], code = 2779) Department of Pathology, [address] [place] [id number], [id number] 12:08:44 Test Item Value Reference Range Interpretation Comments Case Report (test code Surgical Pathology = 104) Report Case: [id number] Authorizing Provider: Matt Ahumada MD Collected: 11/04/2022 11:02 AM Ordering Location: [facility] Received: 11/04/2022 11:06 AM SERVICES Pathologist: Ruby Cole MD Specimens: A) - Bladder, Bladder Margin B) - Large Intestine, Colon - Sigmoid C) - Ureter, Right, right asaf-ureteral tissue D) - colon, Proximal Margin DIAGNOSIS (test code = [id number] 3220) FuZzEwMzNcZnRuYmpcdWMx IHtccnRmMVxlcGljOTYwMl xxvbAiMSQlvYAbT6Gqlsjv CLvgOS6yBF1gjCjsjRDibP NjUOGlUjCuj7iqo895uBMy i3hfESTXpsgceQh0aCfnJ8 6fz2W2LgjmI46hwCXiOXX1 QDVaXYVhnHIbXZIiBND8ZH NqjUIvU9geYQSfPU3ljlcq PRqdKCwqCZXqnES6DQFnbR RiA8JrNUSbIBtgOUGzepj9 XxCjZm5cpSSmlNmxRDmvMW RkUHIcLOxuFGKtVoNaBB8z DsvVJAWGHawiPOIAB5wERW LYFDHWX7fQAfriAIMkwsJh TV6hBmervu6apXVtnPlwns C3aPZikKFyw6a4cZNxuBIj xqkeQJgrFhiqzD4wyPhfzf 6kqEKcCREfAJVJKCqieGy4 DAKun6UbA2HtF4cyo74bRK FteivgGNKvXo5wV48FS16d LAUIK7NANJCZFAmAC5hQRW BBTkQgUkVDVFVNLCBBTkQg ZPGDPGqBMGorKApZVF8uRB DWWXTOJ8QsGgCYEWXYHZ9U OlxwYXIgICAtIEludmFzaX RwEWQvEN6gP2IkU4jnx04b MM6vKGNqRJIqMVV2m8VaC5 4sfMDoE88hs62yWM0vVOCq HXZdyDfmRHikCpIoQK78yR W1PJErFZqqUAHiQSDsCFXs clxmaTcyMCAtIDEzIGNtIG osKIwfHTO6ORV1RBTgyCIt i2zaygTgvb8hj1c6RATmLX RkO62egADozFbtUJNoQXBO eyZyNATlYUUjHDA4aCJnPJ EmbAIqSFCsrK9kNKCxXGOc snCbES0rN7E2rQNcNXBmiz ApuB2cvD53IJBdxFywdzYz xqVupXIpkN6gyRUzoEAoyx Uql1rsbp7zdFXvBM0hARwp BR6iamvmsiWjDDLdUQylXG Vap4JxFYYmk6mbzCXvALVy JIRxnCR9CDkjAPJyM8Vif5 czkF8gSDJbnd48lO8zdZJg bmQgZGlzdGFsIGFuZCBvbW MtwMWiQX1naaozafGkvpZp KPZcihTzSb0xGZuiksHymS JcTBDzakOird4dSEJgeuOy fYybBNlkBLDfQTP7q4RdZZ NpYVxwYXJcZmkwICAgLSA1 JPXzcR9ztIViq0Nckmplde AvDZFbzlWzNt7cRJ9hrSel xuEjN4huRHCcKITnOFHbin UfJZ1NFRG8c7KeI17jpTNs dKMap0Bcn9p9zYSkvVVwzh MvW5Eys2UqvkV4aPGeAIUi hnmqg4tnsohrRDYnb2Aff5 WqzZ24m1v2aM6cTVBpA2Hv PZIccf6cPElsUxewNMOcyl S2ZJwrSDGnvBqph6axUJAz gf2sDIuoTUWmSORoEMquUN DrDK84X75eVIC7qQAuXC2l MPQbW78tViqpJK76WQJcbD itgQ7ejJYtGMZkm0QqBGpu dHlccGFyICAgLSBDZWNhbC Rtp4spomWyvBQoo0Fvw3o8 oYZitaSbfJizlJVfX9IfxP NvsYE3v7TqfLsyqC1bwPJe JHVfp1WuXJtpyOrkJUKfxu waEINlBf2zY93NOLXCQVVV TEXrUOMML3dBMWIRNslFCp WLYGPEQFsuMLcTVGLWG944 UMNhkpMjCJ3dZvpkgq9mpH CnlJrxyhX7mTEoeLQez2t6 aCBjaHJvbmljIGluZmxhbW 1hdGlvblxwYXIgICAtIFRy WR6pCGM2NQLkN0Jfkd3ftS ljIGNvcmQgaWRlbnRpZmll VU2ssHNzTKZpqwRNYdNRL9 xPTiwgUFJPWElNQUwgTUFS J8lRCCAPDQURX7cZUmqqqA BzNERbHAWOu8irreibUM04 S64sDYG6oISvBO4dVEAlQ4 8lNnlgLL63YAlwt5UcuCD8 xW9mw4xuGvReQs7qcw6slY f6vX8bjNNvELMrSJXlLVBo tczqoxFwLIRveMx2XYQouF 5dgDQuDU1mJAHscKCzBLAl shvvMEBhrgFnMK5lKKAXKP 1RW1xYJjXQFB8GEfCEJARV KEssvDN9QGSKWEDZyHQyTL yTCeU1SHghOFGHDHiUBwif cGFyXHBhcmRcYjBccGFyXH NzryyxGMP2g3ttkTDgMKEp dGUxODAwMFxhbnNpXGRlZm mrqonoYNFnHOP9ejPpKRPs AGcsWQPdQUnmWl6ivCAncC kgZuBaGWJrk0gayrKUlvzr cAw9o4nnOBQiMyN0xTQqBR aqC5ciesXpjZGrCYTaODw5 lM95EDHauR2rqFTkFWzime VaWoE4DXmpSVBjLxW5UZGm xDSaCXJhU8xrFKGeCOfzCU UpHYgrkRXvHUV9mTaij4J1 bGVzaGVldHtcZjBcZnMyMi JWj2NiLGj9cHlbN3MhKITk InN3fDKfKIGyUZshAUKiMJ JmmzV7eB78KJidhdO0mEIp i6Syx83dl065oH0shBRvRO P7IAJrSMWolDImOYCeWPT3 JYHtgJAmV2tzQIPkHN7noy qkENiaAGggNCIayZN9KQQa aFHzP7CmIIZyTCorMAMxtu q3ZqDyVb4xvJGtzXvqLYsl i4vha8ejhJGmKrj9LXJnTb UoNzldMCkkf1Kkv6lbJRLm tz9eBNM0xNXzuEicb2Q2vS WmRFQdzMZpAMZhJE8jqNIj PWEpbD9cekbhILDwGbPqcf alYSIqkShdltNdMy5nwQhe GJO2IKgkE1fhlU4gYhO2BF mjG4yzrH8gIUu4LCfiEXJw xRI0roY9ULYkoWHlG4NyjW 4sZAGcHW2nhlx5y4iqYSO0 QFogDYAuJjI0sxM4OQIqjC MyCZXgsXxhEPcxb002KAE1 KfEvMRVum2QqL6KrdErzL1 3vtTufN34uSKNneFmkiI0e iQlsfW0rKkBvHiLrKIouxK biRL7zPGVuX6depZNdZKQk KXYnC4deMnDmiC3krPznBW ooqjQxQROrVds0TXLfxQQn IVNnFhf7WEYmROTaC26eyu gkVMF0aU0dg7cgv0ErBMxw OFY7ZDEdi03nNJowboH4GS pdVt16QVplWVP5CLrgBQV7 fQ== COMMENT (test code = r0wnhLKcWSQneZP7KxHiNJ 3359) Ygb2usr3AccAWgrQJkJBkn uHQniuCtlq96oBW1tZ49JM 4wHBFuPpP1IHHhngM3Atd5 INMcBGDklSOgB987h7cup7 rabvPnkYA7BRUvKFGdS7Ao EY6xXDOtfLWxZ23ocFGcOG T5APLcQGVxcIDsMJAzTKD3 BRIobRElM4shKEPnNG2wqr xwYEpqLMbtVFFtyGA5PKNr qCKeB8DaTZDhQQulVFVyya r4OhEvWm3hhZRlyKwmEIru YXJkXHBsYWluXGZzMjAgVG rzGGQ8bT6cXGtjaj6zqcLx ADMfKQSnHRK4z5SxT13yeF FyIVHkZAOyj6NkU1ewkFGu BPvcyQthPZb9YST5cDH9fL i4jHFrs7o3fOWmGFJeBVUp lPCssVWieP8xJRK0WKubJL KfZ0MdwtFtf2IkPYSbd42y d1u6sWDzHQqpg4vecaP2jj M1eWQkz89kvYneLm91NOni QE9jIBOsRWVrMPUeXTMEyX WveLGat2XwpECzaZ23c8f0 lE2iDGWhSPP6qCIsZAAsbO KhROIqaR8yYITvLAdkoYfg FWRfb4EfTRRnUHFuqrAeKA 9sJRQuh18uPH2yOMHbUvEg af9aJGhez3A6EBNfYA6hQE S5uM9oBXayaxKhRNHoyXdt oUTxPFfhNONdWCRgv5C0aU 6eIY5lTCQxNXNkTULnf3Aj fYile1Jso69cpXjgWw98OR cuf3CfC3JztM1gUWJHcFVz LYGumuHiERG7LeNvIAYix4 YynRP9dUUoZZ8qcXAbZUYz YmVkZGVkIGluIHRoZSBtYX CuZBO1wRtjqFU3VCEnG8Bk g2IooODpLREveArnbXOyKY PgVCXbfPXaVSp6MkMBh7sl pxXaMBUgrIHmtxI5gXMfJI z0HGY7oWV2aS8qjDMcdZ3z rQltXCOzH16jfKXeJMAafR UsmBJ6KQKdildeb9XkkNMe NFRjVQJckaWpqY93t0h0BM 5wiiAqo2JfRHx0ECN8wQC2 rURcm9g9zUYsd3SqR6uycJ VkIGRpdmVydGljdWxpdGlz YYLgYPY4zF5ded9yPA44QU JzlSttLLYcxAEtH2IySRWe gjFqJCR9OTHsFUXwfSGiLF GaAGGwLFFnOWgsgRqdnq7o tAjjnOgeob8tGELdliSmjR vmsxZtuJN7Q9B6awZyOHiv pw8ztfYeVW24HceyPIOuxS FyIFRoZSBtaXNtYXRjaCBy ZXBhaXIgcHJvdGVpbnMgKE 8CXNIvUB7NPZRgUG3ABWUn QW5dFUXIBkVzEMazhkQihQ 07IJQ3HVAbTJKrneD3cYQr xJUgt5WrSutwcGF2MGGdnL 2zwHVoNAFjKGSWShFbYHS8 EzWvQ8MwXYvqDADcsplpJI JccGFyfQ== SYNOPTIC REPORT (test COLON AND RECTUM: code = 5765) Resection, Including Transanal Disk Excision of Rectal NeoplasmsCOLON AND RECTUM: RESECTION - All Yrpikekwc0ew Edition - Protocol posted: 03/10/2022 SPECIMEN Procedure: en-bloc resection with sigmoid, rectum, cecum, and terminal ileum Macroscopic Evaluation of Mesorectum: Cannot be determined: Due to mild adhesions with the small bowel and bladder TUMOR Tumor Site: Rectosigmoid Histologic Type: Adenocarcinoma Histologic Grade: G2, moderately differentiated Tumor Size: Cannot be determined: Due to marked adhesion with the small bowel and bladder ~ largest dimention 13 cm grossly Tumor Extent: Invades visceral peritoneum Macroscopic Tumor Perforation: Cannot be determined: Due to adherent small bowel and bladder wall Lymphovascular Invasion: Not identified Perineural Invasion: Not identified Number of Tumor Buds: 2 per 'hotspot' field Tumor [place] Score: Low (0-4) Type of Polyp in which Invasive Carcinoma Arose: None identified Treatment Effect: No known presurgical therapy MARGINS Margin Status for Invasive Carcinoma: All margins negative for invasive carcinoma Closest Margin(s) to Invasive Carcinoma: Proximal Closest Margin(s) to Invasive Carcinoma: Distal Closest Margin(s) to Invasive Carcinoma: Radial (circumferential) or mesenteric: rectosigmoid mesenteric margin Closest Margin(s) to Invasive Carcinoma: Small bowel, proximal and distal Distance from Invasive Carcinoma to Closest Margin: 7.5 cm Distance from Invasive Carcinoma to Radial (Circumferential) Margin: Cannot be determined: Due to marked adhesion to the small bowel cecum and bladder muscle Distance from Invasive Carcinoma to Distal Margin: Distance already reported as closest margin: 7.5 Margin Status for Non-Invasive Tumor: All margins negative for high-grade dysplasia / intramucosal carcinoma and low-grade dysplasia REGIONAL LYMPH NODES Regional Lymph Node Status: : All regional lymph nodes negative for tumor Number of Lymph Nodes Examined: 51 Tumor Deposits: Not identified DISTANT METASTASIS PATHOLOGIC STAGE CLASSIFICATION (pTNM, AJCC 8th Edition) Reporting of pT, pN, and (when applicable) pM categories is based on information available to the pathologist at the time the report is issued. As per the AJCC (Chapter 1, 8th Ed.) it is the managing physician's responsibility to establish the final pathologic stage based upon all pertinent information, including but potentially not limited to this pathology report. pT Category: pT4a pN Category: pN0 ADDITIONAL FINDINGS Additional Findings: Diverticulosis CPT Code(s) (test code [id number] = 3357) Apz1vcx6QxpQZrnPDwKXjl oNXzoxMugr34cCM1kU66GK 8aIXNpOxU1QEIqgfR6Dzn3 NURjUJXbgBBkF767j7pmj7 uugkHuwPM5tCtbHZBzjlmy AtY1ARntGAMmndmtFGw9TV vvRPEqnZY2QXUdrBDwB9Mm VBIdSX9jlpe9XBX4UXisDK IyWyQ4RQSchZGcXABtyXvk ABxjb423BWH7CtExRMLdxu XkkIctoJ9fMjXmXZM0WKKg JOC6VLxpMHRiQAlzBUT7My ukLAPvMYioIOr9NOurAPAh AHeqSaMttIInTLg8CmZozO JccGFyXHBhcn0= CLINICAL HISTORY (test d5rgzLHlJVGtcLI2VlNyKP code = 3356) Gic1qin0XupQFytWRzWEdw jEVzdjSguu94iWH9bO53RA 5eDCHtGeZ1VXGzodW8Nbm6 DHHwJAEieXWiF690k6nav9 xssaRoxYI5jAjzCIGbxhse DnD0PHcfKLQlaosyEXr7HV idKWHohAC1BZTshOJtA1Iv AGAoAW9ropb6QDK4MSuqHJ PxQdD9GDXtzQYkUUPybPww XKjfy003QFM9YcGhUAIxes BpqFehcO2zOcKsTVI4VzV0 Jt7xOQ9sqHLrq0a0mCAtQG ACSMNqsYmccFCiX4XbsWOz m0WaXQKUEUVtAUPTCWI7Hj PeaXEpHfXtXDVwAEYwj8kn bCBtYXNzIGNhdXNpbmcgcm ZpkZRwJ6Rxw3FqfVDzW26p lQBhe3YsoNN1X9Sjh76tDQ Bhcn0= SPECIMEN SOURCE (test p5kmbFNgVMOrgBL8WfGrCD code = 3377) Kzt2qjj4DmnQLviIGbDFki sHEuaoQjbm63cME9mV97EK 3sVOWtFsO1CCNbsgW6Dml3 WESgWIDomPBvH013l6dli1 mqunApcPJ8jUvmEPRddxtf XjJ9GRotIVNhllqiPWc9OB xkFDPdmST2VPZqfULsR8Uu MHRnVI0lzwf0LFY1SPxzMG ReJeT1NOTfwSIoTFUihJqy EAiyq205PQE1PeCmHWRydn UifPvwcY1jVzTiJLJWPIZ2 o6JfP86jfXWcZKLoYWacFF Hxq4FqQMViaCRnBWAlQLPl cn0= GROSS DESCRIPTION (test i1duoXLnIKHjkZM5OmIqUN code = [id number]) Xnm3hzs2AeaQVrsUBkFVpn zZCiaxUyjz69zUH6rI49JC 6jJUDwEaB6HSQazkW4Krs2 SAVjLTAbcOYwA019f5dwz7 djscZglAV0nVimEMPvjvkk QrO6BZfkORGrqrxrXXx0CF yqQFMhmPS6KJZwaBRwF6Qp CMDmSO4vjzf3YWK8BIkrZT NwByV0OXXljGIxAYFpxLyu WIemu549HXC9GxZtZOAkxg M5QLcxCTTdY0MyC6QjNUrg AYL0QLNeUOZfTJQjJAKeZB LqVNhujwT9r8aeRVHsmHBw QEX9ESrarRJgVQXsMADrAP rrNcNNCiZqVlS7BSL5MzTz OrM9WWc3JGYXCkWmQkFgXo G7YYTtOHdsIWb8UEz7LQdL DzX5EgvcJaxzVmrwDTKtJW NqYTl2REBqFHckhUKkMVBe YYTaIMzpUDwpK58lyEclzV 5cZnMyMCBBLiBCbGFkZGVy LlxwYXJcZnMyMCBUaGUgc3 OmK7qgER7tpSIuhoSgVIi0 GHOsXcBbw8ecXw2qLLMeh0 jshzJtYCM8bE2oNIHgQQhg b6SpccmbsPYaDBxnSWP3lS SxULJeUWEhIQZuSI13IPoe NHMgbmFtZSwgTVJOIGFuZC AiYmxhZGRlciIgaXMgYSAy OiYedDKrTJXqXSXdf8NzYV 87RBSnEOoxiWXwFGFfQzF6 yCj2ARPcbEYpw7OcHWrwoR SeLOD5xmXuDLJtcOIhCE3c ZIZaUvQusW6aRDGfXLMgoQ Zlz3YviYVxjU0uKD8gewme XiflVnRiYXcrQD1vwdduxu BpcyBpbmtlZCBibHVlIGFu OXK4aLRwo7XvL6gbKR9mcY Pbn4YnuFNzzAwhk8SrpQgd ypS4zyCrFDJrLYyfxT7lGM 1hcmthYmxlIGZpYnJvdXMg cHili8ZsWtIqCGzqALMfOO NpbWVuIGlzIGVudGlyZWx5 LAN8Ra0npWDyBL8xcNXrIR VeheUHZPJ8tE8hKQRqZJO0 XHBhciBGUyBBMTogVGlwcy xkp2YnxHs8kWKoJIVpzINk aWRlIHVwXHBhciBGUyBBMi 1GUyBBMzogUmVtYWluZGVy IY0pJBDcDWSofBOnNYDzpx BOK0fgYMJxT9IhV9ZgpbOa zXOhSSPojhLlr1ywIDJ6KN NsbXVsdDBcZnMxNlxwYXJ9 l5txSJWctFOySEG7FLjctR QgNTEwMDIgXFxkYiBPVlIg HqG9PBN0GtUsWfR8TLv0IC ZMEdLgRpRzNuR7BHR6YlUb AJi4NZn9CWfVOsS5FezbAK FqGmxuNPSsONXbCNn8KPAi XFxmbCBcXGYgQXJpYWwgXF whH28bNtZkXGKTYeSZGMFf WXWKvyAdl2SwvmZiDINvqK 6sXF0lU9iwkS7bCQ7ggSPr OAOhNyWwX40fFTsfDHPlmn HgIJb8NZYqDlMtt8iaeBHr ZCcjAOU9eOJkKKBgFCDoYG HlYH51UGaxOZYlttGzCGmi bWVkaWNhbCByZWNvcmQgbn JpOmEhNPIaVICvy1luwQ3j ZCwgcmVjdHVtLCByaWdodC Yic6nttqOryHBsGJ9qWZ4e RskdSySfWZHbH7Akz38prT 2unN3fbKOoROP1ZBEwwE4r qADhcBM2mASiQQAjMPTdxK ObduVlIW6nbLtdUIScLDAv bSBpbiBkaWFtZXRlciksIG JnM3RcKKp3CjYvH33nhU2e aOCgB4MwGAOjOMLeLvQmC2 3zoQ1eYLuzrMU3DVSqLXGy VLkfa0GrNA5zEP16eT2fBK wabCNfVNdrAQ8mETSjMJvg YWRoZXJlZCBkZXRydXNvci QnvRAuaGCwXQfbWfQ1FFlf iDYmXyPoL55vTNXvSOClp8 NzaWJsZSBhcHBlbmRpeCBv mgEjiOObjhWwC3OsMWVlSz 33RCObAQxzLObguin3cHBw kjIyAL46ZASgFDskUULpRH 3ukJEmII3oVDJvAARbVIal VJXrsE4sVKRcvJCkGV2tmB 14CU3lVY9bd1IxkLOzdD6o IFxwYXJccGFyIFRoZSBzZX Kwz6UtbXGnYOvnBqAhCLg5 IYKxamoqn5IxFCO4aFAbXQ VvzO1mCE45QXRnf4XdaOCw XhVpFRmrv1gfdrArEBHUnX Bcs1Whq2VaCJ6kRLGcJATh jCKkuYKjMAxpPOWlHsS4v3 VwwRGiIF0pheZqYQvbRy7a KZIzDYMoGIU5qRExjyCyFP klycXtSIKfLHSkZLM2DIJb lE0hwESihJA2pJEfxtBfpI ujVDMnos2oekOvZZvwADQv ICoiLAKlcFGdZVHyeS0rpM sjUNIlU85hbEVeX20es95c DUSKgHVde1ZxX3cjYA8bmG Gqm2HlxoGlPJPwCICvirSk vCCkjmThvDzeHCJjdI1dVV vmpLrkyr6aQUYnIEbsiAfl wqvlH6VomIcnm11nnOXgKQ 1zm4OmgNSoKJGkh7FwJmDe DVQqOWdmZNRqWZJhMV34GL Nyo9NjrFyaDUHgJVRueAMf KHklLt49WXxxYK4xLVhcQx 1gVPNwGH6nDMXhDFZuLYOn HPvtHDetRBUatTYrwb2gNC EmOKUkfKE9SXomxxQgnIZa ZW5fkuhuqorgWAEpHBXthF Quji5aQNLbZXTsad92oG1c gBXrmMkwl3erCT7lhxeryd mnZo1sUAMlPADva67hxSvp GFGngh8flcUpMTqpAJWiSY 4krfjaqgwfLl33RESgVMMd h94ymCjdHXZfK5QkNRGjhY 1qRW5djcuwnnelNW7aTMVt OSNjd14tnCywIV6gHC27oV 9lzKVaT4glDLXrsYHwf3Tu aGVzIHRoZSBtZXNlbnRlcm pqIC0hssjyemOfObG8wNKp gzUdtX2muGzsh1rxEXIrtT 6fTIGxowAmBHC2sZHjiFjn WSGnwa7pMGUrDrH2bOWhj8 oajD6uAXLvv7noec6fEEkf YXJccGFyIFRoZSBtYXNzIG AfMFPtoj87AAhtcs9cpeDn eUhrTOLvzk5sjlOuKWmyWO LaYE0dLAZwG3TeRO61B84k AK7uPUNmEKVvJJSlSWQmNR JtXp8pxRHplpUhMjOmWWJu YSomOWJwTLG5GSrtCM6yTA JeYDF6WAXreX3flZGamCA2 zM1fQSdoGV7zg8TmWN1swz Qwt3GpeN16n4y5XVV7lQJd ADE1mdFni8TgaDGuM2lsUw HeFMsdzqHnJISgBL78uNFw rTpyRKFadckgU1EmbKEpxV 7thABpb0IhkxIjEO3btH7x KZJzJs3bHmswO81nBBXNAO MqslZiKZ9wBTQqIT4iSSFo RXcbm2MwqYzjjC8iaCIqig UuICBSZXByZXNlbnRhdGl2 NRXbGRB8oC4hhdUiagXai6 VjzNl5jEHlMjJeS0Uxm4Rh bWrruD2pmkCnuMFcLPEbCX Xlu5GxQtdvUZTujQQtXNof dkLax6AiZmtwDWAcXxz5YT tfSEXeNT18MQHvKeHfQEIg lJ8po8QgSPXmJM9nsC8aHQ OhtX3vKQhdiEmxeR2iLxXu fQq5O0bktJTjLHCvEHEoBA fcbNFrRI82BEYgLzXzVYHx eH2pQQTlfq4hRYHcKxIxTW J2r9JqE83sdQTcF71ji26s nKHeNH9pVO6kZMS4YQ5ga0 LvfS9xU9eeb8HanXGzMWAp y6Jak1PshWaxNCTsB70piP NzD76ed85ykKMeVZnxWVRo XgCAoGComFLhBS7icaiemd xwYXIgUHVycGxlOiBPdXRl hyNxaVLhNTAxES7eUXZ9cY FidGTcAZLgtZW7v19pFV78 i0VxPDwvWGAiHwLgLzHYWQ C5oVDuu6CohAUphfSkBbvi TQRce62eeIPthQ3uNJExa3 0ojUxePHUkcDHfCDNtO0Hq v80kP95oCIygdEYrIISeKq BGTCNllU3bbAZjlKR7kXOz KCUgrJ6eTY5uUBPkW8d3YE DvaE4gTO6rgogdbqnpRF3o EpWnXWqxIILuSuN1USgbOX 5uUWTdxTY8UDy3DEvdECXc HyH0MGGxqMMch4JczYF9xW CwEI7wWB5cQT07CNaauNSo V8pzBHAbcnSkVHQnFLTaqh TMDKC2GU7uz6ZqeGXysRFp iWGyH7keMK0uZXOmU6OvEA BlbiBmYWNlXHBhciBCNTog QYzliCZpRTHvD0HmdINtVL VjeI6dYRYcVALsC5OnwLHf YTB1MwOWqa67cB5wrMSlcW oqr9lcNKIsaJ2eFT7sgvxc icxoWR1tZnTlHFddSNOrIp h4ML6hn0XkqA2ttC3yneHc nUBsZWOfpXkjc4sxMYEeuN 1uZWFgmeMBVTyxVYF3kfLs q8OoeYHlJ1itGXMtKL7kHB 50iH5ffYUpGYJ3TFqxMEW6 yhQns5OgpCLyX2ihJGNjFR Cuox5fmpMcZFkxFNBxRHYm ciBCMTAtQjExOiBGdWxsLX VnoJMggqBvnpOsIBL9hN9b TI1rQUImNXvpUMKsg0BmNF PtNTNsT39wzKMcU41vv40w zY2blL5cdWAaMUXmQwNnGF NzXHBhciBCMTItQjEzIDog tFKpziW2rdMmiA5qQAX9KO HwL6Ejb0bteL5bQATwBODr sfFnehwsWF8fjhbnixbaoH VycGVuZGljdWxhciBzZWN0 oN4rc5czHANaKqZ3UYRzGX asPNOrfwklH7MsmBArIX8c UYMsY9Uen5rplS6rBOKaa8 brknlaOMXyMeC7VqUGLLFi UKIvcWitd8dlIPJphG4tLK DebgEENSR1TZKpTDlgAQb8 PUW8mEI8qJSbe1IrfA0qq2 djgVQlHDHpCW2lpPefeDKt HETcAV2TRuO5VD7ic8EkwD 6cT7odt8WzgIVgYKJxr7Fm HEAqL23jrMOzO53mu80rfH VeGTMaYwbmXHXzjgXuD6Ze tLwtjDnpqe7gSSInbIHbRF McTM6ITsF6PXRfX6Idn0Wa qZLha9KhmYs0AAClxE4jvR Jbb0ZoBEI1jtyuNLL8UWNt bWYoQFBoAxhoPRYsdf9eh8 k6YOAav7j1eKDaLXr9zHZy OR6kGOMtCREhlZIbR0UrLN unWAZtBrN2TzJwBKpcb0Cf iQhdgA5ogDRepiAnyDxduD jvuk3tXWmxvYWot5CaaXGt CJPcgaPCFzj4UXSnbRyphC oihg5wFLouVxzhVAS8MJOr sADfUCCtRPfkCNInuO1egK Uyd0XiWVPqiEBxS7VmTHcl YXIgQjMwLUIzMjogMSBseW 2zlYSsx3PdQZOiNCCcZXyk yYNoUAA0kK3gTFZwaRTpTJ RpRnocYERdgM5edFQvb1Ut AFXvmKWkfhkeUSE4HPXzjA BlFBGaUOazOHHspE7hvWWp m0BeOIJ7yhsiCBW8NQFjmN UeMVKmBYimSNVmuW9zzAUe c1TvHPF0puceLHC1GNJfwE DsVDBrVm5FZJYqIsDbBCm5 hCFeDN0iREZeUdtbZQW3XG MqjM4oWEQgkUPxPTBuVMW2 ZBcyTEEtVdLnRyHlEVt8qS AdYN4iJWSuLARxiEVaH6Qf PQuuYOHoGcEcStMmHNk7hJ GyNX8xLFWcLGChiUSiP1Wu SXigGGTwQhN0DYE2XUyaVB NgoD4xzWAoh8IwEXMwdSDn rpejWPF9TJDkmNHtWSQ1It znNHGxbyEhV0BlrKbeyUxu tl7dZRMtwJXcDFS2RmagRS KcldXnP2HkpLiziKlqlt6n JBTuyRBxJTR8MQS0EXYmkC 36WNU9DFz3nYNxUF2aZRYm KWWtjrOZUOn5IDJfAFkeHR Hld9JuQKWgIZPpL09pqKOl W48xz62zhYQxUYN1CL0PFP D7YGUcCNlzHHGpg4SgJIWk LFBsG65gvVFyG40zt80jPE StfhXyjyMveETlo9UngFae nsZnxDXsTEK5ZlnxS55tvN tqCp62SPnjwW8vl6lfuQ4h GHGqk3pwjfceSGSrVgY5SH B0GJkmG8sffC1uFQDzXDWo NSFwKBTilpgeb7dvDvKnIT HatSWkVSUjYQO8IFIeeP09 MPZ9MTc2qRHiFG7zKJAkGA ImukEYYJnqVyH7IwBXe2Uf aWJsZSBhcHBlbmRpeHtcZX KoZ5SpR2UeorMovWCqPMTa snNio9jlSHV6MLOtbBFpaR GcOdEbEnrzBWQ6u6soZTUe rVTjEEA1PDyfcBPcAMUxWD QtYPwtEjPEGeXlSkH0WTJ9 VmSkNgJ5TDs7ELVXTuPjAe CdVgL3OXWtVfOhGWg1MJk2 AOiNSyH1UskcEPGjHSUeJD TaUCFrXSe8ORJxDZqyzVIi XUSsCDIfWRfpIDleE15jAf DkMRBURaNGdgB0ONEcCLWk U9y0ZdzqUXYhZxQdMHPFBN NlaXZlZCBmcmVzaCBsYWJl bGVkIHdpdGggdGhlIHBhdG mscvDfO8G4ovWcVU0lUTGu BJWlO5KdHMYcH44eRNYgtT 1yEEQqCK5oKGOlrDowkFBd ZXJpdXJldGVyYWwgdGlzc3 ExCjNqizMfXOhqFNY5QHSb BRP3AIClJ25uXMuzvuVbEB NlUZ5dLW57oMEueRbsJLPn pkzfrCSwmN98WDKsvlM5VP EpKSJdhCThZFZra6C3QOBm cmFnbWVudHMuICBUaGUgc3 EjM6nfIN9dmHSfq7GieMIk iFgag5AjiAycruVlORLuVP JldmVhbCBhcmVhcyBvZiBm tBTfb9Vyrq4dKI1zVSeoq1 ZqJAbhm2blmuPoFQUwIZtm XT51xAAzWKJgTVMGXHEfAK JmtrXwtAp2HKWqNQJ5tA3v ddMrvgExj3BjjWx1mQYqQQ giILUuCZK9YfZ3OCGxkROg NLG4EN1dETMobkzjBXKuYU MdZEW2WBlsnG16qWCfULVr MTZccGFyfXtcKlxlcGljc2 VjdCBcXGlkIDUxMDAyIFxc UTCcX1XWOGSoMsZ2EFmuWU QhZUg8KDvyZ4SZWHRhLEGm QpQ9QqS3JwS4UCz9BJSELc 4aKmu9HKZbZBPzXKT5SODn IFxcdCAyIFxcZmwgXFxmIE GtvOAxRKuqevQ8OYVxMuYz ID2aW78mh76gBICgsenhgv WuCAJoR0JgtoYuVJBzHRMw SRxbOnZpTZKzs2m2cZH8iH FsbUZ5oMPsqTwcVfHgPM8n wSQxDC3vRXifAQatabFqe2 DqSC56zVBnmnHttuVwDvTq wV5wLoXprsWblgB5rj5mlP LxoWFxEKXgT45rmoXbf8Vz Q32hg04zsWUdi8YmxF2qNT CkQIFgmUKtnvEnUR1dxQui TC9mJWCnU75vpC0lGXbthL H7CWVkOIQAogRoLU0bYTid ODD6RGHsTMBxMG7qEJOeVH PajAPfq9a5VWNiaeRhpZOi e6Klyg5nWYRySWVyMXfnKI Kyt27dpQxyDL8xkN91CS6t BKA4lKOciDYvJPHrTVYgAX WaiIHcsSHqER61EXE5JvRq VGhlIHNwZWNpbWVuIGlzIH YxZ9Xef55vYIZ0wfHiYTSp YWwgdGFuLXBpbmssIHNtb2 91yNIuvFFvx3Vsd1e6eGUy q8TfYIijWGAooUd6XMM2yU JlLiAgVGhlIHdhbGwgdGhp K4ciADLxQIRynctnxfRdCl PeSZ77WRXuXuHeDSydvkTk jYSyZBSuQmDqP24oW5OejP LkgP8aaZOcj5CgYrLqZwYt bqDgII48DLYmndFqn7RvwC fqvcUjOHUkWTL7Bw3egNOv SJ3ysZQkQTTubqBIQPR0wV 6oDNCeQHT8NLYaljVEXFir CL37nSGzGV8cSQ5ktMEcC0 luXHBhciBEMjogUmVwcmVz QR30LAChamGkm8Qbf6CyjY gjAJPbMXImyS5rDNZoFQMy V6BndZXmNRSmWrZPg2zwbb D0qKTvEQMynIOlCM1sQHS1 YWxsXHBhciBENDogMSBpbn VpE8BqyQlubWxmto7xCJei YXJccGFyIENoZWxzZWEgR3 NivL3wWG5QBkkiPBImROEK K1KeN568SQBqsQDzBUY2HU 1ioDmzRVYtR3CnI0VeqhF2 XHBhcn0= INTRAOPERATIVE v0tsbNPdXXOoqLI8GcLuYG CONSULTATION (test code Kud7bkq3VslPKppBNfPCbn = [id number]) nAStgfZhep26iZU0uA01BC 8vYHFiKsU0LOZqwcE0Fdh6 YTQfOIUibSXbU188d2flo5 efbcOtwPR2mWivGBDmqblg MeP2XWilWSGplhfqENx1VR qlURQpkKI1LVAxsSRfP3Fj NDOxDL3jagr4WGS8WZhxNO YiRiO7RUMweAAfZLQhvZrf TRqjo482NRD0PkXiAZKebp Y1DUysZFCgL0KpT4AfZJlq STH5MRQkSCGhRFQbCRGkTR TtKSzqohE0a0cjNRYfiZVq DCT5AOsesKRqWCIiRBGeZM rmFsYUWeWoOyH4BZO7JeUm UoS0JEo3ZWTEKcMsCdMoNw U2DETcTKuuRSw5MHc8SHqU McY3OnmbZfZzQABmXBPcPV VsDFm3ODItCTzvfIIuVXFp GHHuQOruTSqwB33cnFzrbQ 5cZnMyMCBBLiBCbGFkZGVy LlxwYXJcZnMyMCBCTEFERE YKCQ5AWcsLHwsudTZwMA7M NHDVA53MH2TKAFPGLQZUJ0 KLIYIXSKLLJZAODo7WIAOu BC0UINOICXOGKR6WCWQdtb DeBxZPDBCPTiDlSj8LTM5E OwkFMSHjR0ZIR2eSL06TIR CpfvlwJTDfVcQzt8M4ESCk OjahDKShBDUjdbKcRE6mTY UqXuNBi3zvnG9tAGKzGAam CgCgeE7tAJRtYIZpIoTcCn obOLSmBTS0ZD61TPMgdZGe GMK1IZ3xgPdpXXSoB1EoQ8 AcjcY3QWLcxc9= Gross assessment was [facility] performed at ([facility], = 2777) Department of Pathology, [address] [place] [id number], Technical component was [facility] performed at ([facility], = 2778) Department of Pathology, [address] [place] [id number], Professional component [facility] was performed at ([facility], code = 2779) Department of Pathology, [address] [place] [id number], [facility] [id number] 12:08:44 Test Item Value Reference Range Interpretation Comments Case Report (test code Surgical Pathology = 104) Report Case: [id number] Authorizing Provider: Matt Ahumada MD Collected: 11/04/2022 11:02 AM Ordering Location: [facility] Received: 11/04/2022 11:06 AM SERVICES Pathologist: Ruby Cole MD Specimens: A) - Bladder, Bladder Margin B) - Large Intestine, Colon - Sigmoid C) - Ureter, Right, right asaf-ureteral tissue D) - colon, Proximal Margin DIAGNOSIS (test code = [id number]) FuZzEwMzNcZnRuYmpcdWMx IHtccnRmMVxlcGljOTYwMl lbrtEhASWzcDHzI8Krxknb NLorTO7hCQ4wsKkdjQVrvL GuGTUeOcCmp3jqm727sXHn p9ybVHQCgdlkgNo1aEuuG6 3ne0G3FqdqN27diZErQFU3 APTuMLVrcZViMDVgZDA5NU BajHMdQ3zlHIXvIS2ezpwo YVcrXLbwSWSesXP2FHImnY TwU0JzKHPiFUxqINQduvn8 NrHdEn8glCHxmVjpJNvhWZ FwKBFkGRvgHIMrRmMxSK4q JwlAROPVUfogZFQVO0iTLE DOMEWBP8zKHwacLZAeqgWz PZ0uIgjhek6gsUJfwQycxk E0gQBmuRXsg6b8xICslEVp unnpRTvsQsenjY1abVxrbp 6heYMhSDYfPWTOBVzkkUi6 KKTmm4OcL9ObJ1xcu65cKJ HqdejdGRRzNb1yD20DF78e QASJK2AEEBUFCVqCS9fVHN BBTkQgUkVDVFVNLCBBTkQg YQLIKNvEPFieCPkQUW9eSU VRAHOJL1FbAzWEQJDAQC8J OlxwYXIgICAtIEludmFzaX HdZJOgUT1zW1AlB1hkr02p MF1aBPOhVHVjXNI9e9LyY1 5enLZpI14sf05lHG9cLVHv RZFkqNwsOPlfRuUaUT77gJ V1WHSeFKzrNDRjNCCpTQUw clxmaTcyMCAtIDEzIGNtIG nlZTvjXRY7QDS6TLMyaQGa d3lvibVoxv8fa5i5KBOpWZ HvN37pnHCnvNreJILkFSOE byPqPWNmWZXuMEM3aWVaTK NblHGdRANdfM8qEHYrTDDg gmPhJH3sQ2W4xANaYVTelj IwzF2whQ70OSQdlRgxryPk vdPcbWRebR2jsZAtvTVbwj Twj2cyow6xtQCmPK4xUQgj DD6oyccxgwZbSLMrKPxtUZ Qzg5PbWBSpk6afoLOzRZVr OBGiiGI4FZlvMSQcM4Tsl3 ocfI4yDGEyop02vU5rbOCf bmQgZGlzdGFsIGFuZCBvbW KfhZAhZI2cklkpuaTtrwOb JOOmfdEdVe1nTXlmzeCftF BjQEKsvvUnyt7yUEElxqTj vHgwGKydFFAnGST2g8PyQU NpYVxwYXJcZmkwICAgLSA1 ZFMohX3olNTvf8Yiplceby OvZCYvbuAcDq5xFP6nmWla wuGtI4toVBSlXXUwSIHgzq MtIG2VTOC6q6HsU23ytLMo uPSgh8Lne3h9kVXrhBUagv KzR3Bwf3UbnrO5mQGgJXSr hfjji8scbzukIMGgc5Bzc4 OmkN65x5e9uK9jNSYwL5Pd KINwkn0uBFazVrhuNMNpyc B0QBxzNHFykOhls6kbYNXl wf3cRLtrXHBiEXNjWBzsGX CzXX56L51jBUB0oXFuYQ4u XWDoZ44lQsasSY22SYPvhV ijfY8cpACmXCAll6RdSIqp dHlccGFyICAgLSBDZWNhbC Mwy6xpxcZwwQFxz7Ays6d4 lVPadlXapArhrCPoN7YtcC KzsJQ1q4RqjXcncE8imIWx THHhb9ChZPwdbJheGSKheg uvXQDmRs8rL35IOKYKXXVM DIQfYDLBJ7fROCNCZpeQOy MFVEEFWXlaDUaPXCSOW014 UWAgqcAoMI8tOmpzkg0jvU AovHoycaP9aSRfqMXaq0b2 aCBjaHJvbmljIGluZmxhbW 1hdGlvblxwYXIgICAtIFRy LW2iQRT0ZYTkT5Hyjn6nlQ ljIGNvcmQgaWRlbnRpZmll FS1kqLRxVGWhkbQDEjQEH0 xPTiwgUFJPWElNQUwgTUFS S1xHHRPHXYSJH0zJAgqdfT ZbYGOwHSHMs4jghivuWL18 L70fAJS5oBNoNX6dZXEkW9 8bCrmrXL70DIinq3VjcDO8 pQ5jb7ijRbWsCy9oin5agF h3gQ6qyBPhUGMzUXFnJONk jgvvgjDnPBHjzAq5NUPncR 2nxLCsGB3yGRZdcKWvIRWd hwphLMOdobRgNB7rWNKNAO 6UM4sFWpHZBT1DVgTRPAPF YRmfvFP2XBVTCMPNmSLwKR qLLuU8FYtyBENSMJdOSmtn cGFyXHBhcmRcYjBccGFyXH MetsovVXI2x9sebZYfKRNq dGUxODAwMFxhbnNpXGRlZm tfxfcqHRPcWDH5eiCoTKYg MTwvMHYhYFqiUe2hyIItxW paQzOaLMAjf5hnouLDdktv nYf2r5emORSdIwW6mBLwEG pkI1ydeqVbvAZmJNGxMCa4 qW43NSBfjX5kpHGrGCwevp XdFqB7AHrkOTAdJwL1SVJx pWAlZBJrB6jiVRIgDLmpMR GpREvruNYvAAE1aIfca5D2 bGVzaGVldHtcZjBcZnMyMi QKu9FiJAa8qTeuN4KpSVQw IlR7dYHgSDXaKOhkXRCrDV XwyhF3wA43XKvykqU7hPPv y1Ryi44sm324lI8ifXQxUT X7YGFvVDYbgWHkPHRyUSL6 COOogMVdV6heTCGePE9pkv mvLZlhSXsbJMQuaDE4AYQu aGElI3AsIVZyLTrkTPDwkh t3RyEjNy9ziGGwlXjtHNbk c1hcq0eojEKdZkm1NIGoDt ZaOhbaGEkho7Eei6daQXNm gg7kLEB3aVRadGrgm1F7bI VdLCSzvJThSOXaCW2giRBq PINmrS9smbokEWBgXhXciq mnVBKpqXtxpcZaNo8ffCfh TDD7SGlpH1umbZ6zRbT1ZI fbH0hvfX9qNGi3SWlaSDRd eOP0bcE8UEFcxBSqU0IwoE 0sSRDlNN2lkjp9p9drOWA4 MHcpLNNnXqZ1rxH5PWJdhY KeUATgnWviYOqxh614JQR3 FqSeYWXtn6WrU0IcbRijC3 6olQafC99tXUVlrEcttC6w fIsaoK2hLzVbCeSzBLkxrH osLY3qQNRuK3mdjIDwSAWd JFUuT5ctAgRznE6rhDksMD ctslImLLEzFxy8IZSjcWJq DPDcQhf1SRUxGJGqX17gem yqNUW3aX5ne1khn0IcTHdu TDB8KMPnw73jNAqgcjL6ZS diTw01AUlsFYO7DVywSIN2 fQ== COMMENT (test code = m3oolZHdAHBaaNH8NiAbBX 9141) Zah7hwu4JwkMTktVDsMFxk jYPetvKhub36yTK0mD45TB 6xEOTrYjQ3RLFypdI6Oda6 WHJtGGWudREiQ854k5ppf1 gxccMatHI3NKBgGADcH3Ul OY9nUSPcdMTmU94hjSEaJS R4AOQdECLpyZSkWUQwOLV6 TUFcvYRzI8muLBQvWJ8xnx vjETmpAXkpCWTxzRZ7KEQk qWYzT7TnRUFaKQhuAIBgml t9EvJcSe8wfBFkkTnvBHlj YXJkXHBsYWluXGZzMjAgVG ubIUG1cD0uTCxpkz0ivdBr DTPwXBCxPLS5b1AoF30mmO ViISKaAKOqr7QfP4hekTLp LXfycPbtSWj6KFA3nBV9gM m5bUGgi4b4sIXyMCKiEZSo bPFfpSCjzC7rYBW3MKosNN AoL1KysdWty1FzHSIam24a f7j8vYEwEYuox7xycuQ0wp Z7dAXrd57guGwxWv42ITcb QN5pQBFrCGIdAARdWRXJjE RlaYCam4RunFUasD02o4p5 yY6yAROjTXP2qGFyPHMviJ AuCEHotK0eIWNjDSlvrRfj ZPTdh4UlIJZfWKMkjpWiLD 3lDAGep56oGU2gYYDoBoCd dh7mIVmcl9Z4ZVWxXO8rRL M3rJ1uHWybisLnWILqgYxd qCKiAFjxWHXwRDCky5W9aS 2xPE3cALNyRIZbYBOnu7Nz eXzkb0Dzs65srDxqZe08ZZ ran0WmH6BnkF9pKDVSsZBn KQOietAmEMZ5MdOiPCZza7 ViwKZ2tCAxGW2pqSXnKVNb YmVkZGVkIGluIHRoZSBtYX WeQDU2vEysbTC3VQKeX8Gd b6ZiuSKcORTqxHulqHYtDA EtPENzxKCtLXs8YiVTb4fe ceTsQILpyVBryyZ8sSErNB h4ZOF0aNH2cL0nuYPorE4d nVpwVNQlY03swWRySEZmsM WquDK7LPHffdzjs6AcrAZa OLYbCWEqscNahZ93w3v3ZR 0wluTdy3EwZEd0BAM1sZI2 bFMrd2l8xOHje1BuY1vrmW VkIGRpdmVydGljdWxpdGlz IIMkAJR1iO1ovn0iKY36WG MbsQknIWTeiDLiC4KaJCPz ppZdXAR3LINmLBApvSZmVS RlELTkVPVoMTsrbWytwm2n dVjdeVsjcz2kKTJmoxQyxI ikquVubWR0Q7Z6nnDwOPfs qi5bmmKdIF04AkaqUDLhhA FyIFRoZSBtaXNtYXRjaCBy ZXBhaXIgcHJvdGVpbnMgKE 5SHBChPF3KHYOeOD4SRGFi GL1nIHQICwCbCOmfrcEzdQ 45VRE0PZVnILEzcgP5oDJw iIMhk0MiHcuuxDD6EGCrmO 0drVPoAVRbSIYMQoTzIJS7 HqSkP9SlTWhyZYKbujobGZ JccGFyfQ== SYNOPTIC REPORT (test COLON AND RECTUM: code = 5765) Resection, Including Transanal Disk Excision of Rectal NeoplasmsCOLON AND RECTUM: RESECTION - All [id number] Edition - Protocol posted: 03/10/2022 SPECIMEN Procedure: en-bloc resection with sigmoid, rectum, cecum, and terminal ileum Macroscopic Evaluation of Mesorectum: Cannot be determined: Due to mild adhesions with the small bowel and bladder TUMOR Tumor Site: Rectosigmoid Histologic Type: Adenocarcinoma Histologic Grade: G2, moderately differentiated Tumor Size: Cannot be determined: Due to marked adhesion with the small bowel and bladder ~ largest dimention 13 cm grossly Tumor Extent: Invades visceral peritoneum Macroscopic Tumor Perforation: Cannot be determined: Due to adherent small bowel and bladder wall Lymphovascular Invasion: Not identified Perineural Invasion: Not identified Number of Tumor Buds: 2 per 'hotspot' field Tumor [place] Score: Low (0-4) Type of Polyp in which Invasive Carcinoma Arose: None identified Treatment Effect: No known presurgical therapy MARGINS Margin Status for Invasive Carcinoma: All margins negative for invasive carcinoma Closest Margin(s) to Invasive Carcinoma: Proximal Closest Margin(s) to Invasive Carcinoma: Distal Closest Margin(s) to Invasive Carcinoma: Radial (circumferential) or mesenteric: rectosigmoid mesenteric margin Closest Margin(s) to Invasive Carcinoma: Small bowel, proximal and distal Distance from Invasive Carcinoma to Closest Margin: 7.5 cm Distance from Invasive Carcinoma to Radial (Circumferential) Margin: Cannot be determined: Due to marked adhesion to the small bowel cecum and bladder muscle Distance from Invasive Carcinoma to Distal Margin: Distance already reported as closest margin: 7.5 Margin Status for Non-Invasive Tumor: All margins negative for high-grade dysplasia / intramucosal carcinoma and low-grade dysplasia REGIONAL LYMPH NODES Regional Lymph Node Status: : All regional lymph nodes negative for tumor Number of Lymph Nodes Examined: 51 Tumor Deposits: Not identified DISTANT METASTASIS PATHOLOGIC STAGE CLASSIFICATION (pTNM, AJCC 8th Edition) Reporting of pT, pN, and (when applicable) pM categories is based on information available to the pathologist at the time the report is issued. As per the AJCC (Chapter 1, 8th Ed.) it is the managing physician's responsibility to establish the final pathologic stage based upon all pertinent information, including but potentially not limited to this pathology report. pT Category: pT4a pN Category: pN0 ADDITIONAL FINDINGS Additional Findings: Diverticulosis CPT Code(s) (test code j1aztGWsOPFmcCH5PtYiVP = 3357) Njr9osu3CuyZXzxTBhCLlq kQHbwkMlij77yAR9rE89DR 6vJJTwWzS6FEInrtW3Pwq0 BCDvBZHnuNPwE054l0xgf5 hffdWcpFJ9rIwkWWJvpiun BcM2CBrlOTVnbhbkNNf9CH dbFNXzoTF9ZRViuOUhG3Yf KJDwEJ3tgxc1AWH2HNprRX IbKtH1SKEreFAjSYCrdSpd OPwjs845LWX3YrHqKODdfh EbePcyiS6mJuTxOIQ4RWTa SRU9RLxaKMKlWKpfNIS8Jb sgQJQjVZzmNZq5IHukNZId JBhcTvQodCSuEMc5BfBfmD JccGFyXHBhcn0= CLINICAL HISTORY (test a6ikgSLeRJTmmVH6FkAdHR code = 4892) Cyo6bik2ExqRFmcMHtZHkb sMUigrOenq17yYM5mJ74UO 6xCYNfMwR7GRRjidP7Vni8 AREcJKZqsCFfJ664y3ioo3 auwdBodWS3pQbcWSXlffoz IyS4EPlrXONtbohxXQy6IZ zyAUIdzTU2SHMzyUSaR8Pw VINiHQ3fzzo4IJG0YUjkOP GdCoO3JQKnbFWoONOzeBba WLpov950OGP0ZyZxZBMwfd HbdZuqwY2cYeOmSIL4OsQ7 Xs2wJZ5qeXJkv7x4wRPxXM YKSSHtdUudcCKcJ5EkqXCn i3OxILXKUWLkSURBDRY1Wr GamDMnBmWxCNVgRHIcp6dt bCBtYXNzIGNhdXNpbmcgcm KygQBuR5Pvi3QqeEOqW40n pVVwo6TpeTI2T3Yzi56uGQ Bhcn0= SPECIMEN SOURCE (test e5fmzORhHWKhyOT1UnHaNP code = 1615) Dtm6odo8QyzMGbkDVzZBqq gWGchkJwjx60sXF0yY49SX 0pAPHdDgD2KQBqvuB5Qlc5 TXIeIUGdjKJpA784c3hyg3 xciuWocNJ5wDayHXOpvfid YvM2NXzpIKKhmutqGXf6WZ cvARPvoJT9THAwnVYvV3Gy ORKfIN9ssar9DAK4WAohRW RcHzN4XXBsdZQwRULrgDsy AXkgn565TRM9BuMcDXLrzx PknEzepP8wRuZyJMGJSMI4 g6JaW07koGUbZXRjILnuNU Vpv9NwLIPwwTNaHXBnGPUj cn0= GROSS DESCRIPTION (test l7ommXCgZXYlzTH9SfArRL code = [id number]) Nki9vmj4CopWNmzRGlBZyh nSExzqHtir93bKP8aC78WI 8hBGLxBeJ1OFEcvdA4Azy4 NZOaIATdbYAvN511p7jrp5 yemkJzpNK5sNlvMULhdpji LdU2MFbfFBQgoejlRTa1TM jiXCAyuDD6FPLrfANdP6Mp WOYpYH6kjau9JCS5FTyoSN CcVzS9GGIrqJQhVAKviFqk ZWeyt854NHU0XaAgAOArmn X6YSikNRGeQ5VmT5WrKGtd VOE7AJDyAMCqTELtGTCwAB FeHTctacH7e5iqGIThhMAb PWM5NZxcjUDsOAFrWSQkSV fbWgKQOpWgUvF3UOJ2TgUv UxW6KJj5CEPQSpYyTrPnIt Z3XTTbAUdnVPx9DUf7DHhO UuC9IdyiBjrhPbyqDNPoMO SqAFz7RDTwAOwzhPLpHRNz PUBrLSnwFFqbJ36mjLjocC 5cZnMyMCBBLiBCbGFkZGVy LlxwYXJcZnMyMCBUaGUgc3 PvZ3xvZY8ydHHfrvIvFPr9 UVFmVfCny3epSz8mAWQxb7 nafqZmNHK9qA0wSTXqPZga r4ZdosqdjREsTIvqCYU6uL GtSUSuUSAkBGDmSC37ABqb NHMgbmFtZSwgTVJOIGFuZC AiYmxhZGRlciIgaXMgYSAy WjHmiMNwWTEuGDPec6PpIG 22VYEzRZvbkGNpRNUtPqR5 gSq4EOVejHMte1XySXdajT KnDTG4kxSqXGCrxNReAT3c EVCbNuRswT6wCQYwYGRnuU Xgy2BxgENuhZ7zIN0lvnww PbmhGkIqVOskQA1zutapcz BpcyBpbmtlZCBibHVlIGFu RTK1sVPqb9LuG4loQL9wrI Xcj5CabHFvxEzhm8XrtSwr hjZ7vwLkCWUyMBunqZ5qOM 1hcmthYmxlIGZpYnJvdXMg iZovs8FuNcWyQKagJKTeTD NpbWVuIGlzIGVudGlyZWx5 GQP9Zk8xzWQzOD0gzEJoPG PmjuCJSJM1pQ7zSRGtVLU5 XHBhciBGUyBBMTogVGlwcy bvr5BqqHa7kXUjSKRcnOTg aWRlIHVwXHBhciBGUyBBMi 1GUyBBMzogUmVtYWluZGVy EW7aITNsTYEdgGOoZVOjsn LEK4lnIFLfY0ZlU3UrmyXf fPAoJSGtmjKby1kxYVZ7CD NsbXVsdDBcZnMxNlxwYXJ9 o9mbCIKccZGtHUC4VHgbsB QgNTEwMDIgXFxkYiBPVlIg KjH0DTN7RoApQaS9HNa1DB BCDrKmSnTfEcU8YUY1CdVc DWv2FTi5SXlHRrU0PqypBY IvYgrgZDVgNZWvEFq5CWZn XFxmbCBcXGYgQXJpYWwgXF qnW87tDwDxDFYZVcQEKWQf BWWEfbBio1IzqyUsELRwyW 1oIP6kB4cgaW6nGZ8ugIGh AVGcYvMnX45rRSsnAFUfwr YoXOl9CHCdSfMhf2sobUKb RHthIPE6uCHbVFHeHKUyBR DzYK25AIlrOLEhqiAjJQse bWVkaWNhbCByZWNvcmQgbn CgQqQgFDYzABTkn2lzdW5v ZCwgcmVjdHVtLCByaWdodC Qsa5bhlnGyjUMpZS5uXN6s KijhJlMhAYLjS9Pid38pqA 9rrL5zuYIbFHP4BMHunN8d bFYjdNS1wWXjQCUeUDHqaO KszjFlUA5rwFpoXXUtBBPd bSBpbiBkaWFtZXRlciksIG LaP7SyRZi0ZvWkQ66deD4c kXTxZ1EbYGQvZUXzVwVlU3 1slG0lNFrewMT9REBhDEJu EOusr4NcGJ2kGA52hY9lND efeCBgYObpIP0rJQRnAPbx YWRoZXJlZCBkZXRydXNvci DstYHtkIZhYRigWtP3LRbw iDWeNkCfM63fAOAdHRBho2 NzaWJsZSBhcHBlbmRpeCBv daHnnFHtesWyR8BoFCKvLp 73PQJdGRgiMDplirh9bJSz baKtZS34NWOfKZcyLRLqZB 6twBKsYM3gEVOjZWQlCOze OYTnpX8gNIQslAKnVF4pbI 40VM9kEI7ne1LiqHShaO0h IFxwYXJccGFyIFRoZSBzZX Qja1NgfJPdPSmvAyOtWWh2 AHQoorend1OtTFA3lOKsWX SylN1eYY89BDFqc9DlyJMi CmPwTZiap7jhakHbYRTUmA Pwq1Ybt8EuCB7wLEVtYYMk eYHpfYCsEYikDEYxBsA8u5 VdiOEyCE2lhcUpJJdcMe0n MYNaPIMuCUP7vDIhmxRqTW kicgFuTIPyMWKzQKI8XDZr wC6gqWUcePU8dIAjysXkrI wwSFRbeh5inuRoEKjyBTIo REyyQSUfqYYdYODfmI7agC ilLMUmD23ybJLbZ29qd76r VRFQbUTmp5EiJ8wxSI9mvM Trw1RwntZnHLAxNKUinpZx uOHfexCgeJwjLLTckI4mRW lsfApqsp1eNYElMJcqeYjk rnfqT2KeyNtun99dcKHnHJ 9sw0BkiOEfEAJxe8NbDxAp GNKfCCjoWUBuXSRiLF01PJ Way8SmwJcwENAoPBQrkTEo XPdzFm49PGscOW8lKMnrRz 8oWMBvAS2xAZRcFVXiOXPo ZTqvWWcaPMIbpPBadd6yFG AaFQDriJK7LFhfyaTxtNWz AU7uigtobrceMHCtUCFmoA Pild7jUPZiGJQylf01hF0f rNJtiFabj5kmAW6zifldpx qqCh3cNLGpZZXyo94hsWmt NQSpir1mexXkHAymXNGhGK 7ssvhnbmpuVn80HIEhIPWp v31elCcfHEPvR8RoCDQhyV 3zBG1irbztudwcOK9pHLEd ZFFeu72bkHptPH6rRS54hE 5wnYQtA4ujAHSbsPRqp4Ea aGVzIHRoZSBtZXNlbnRlcm syHD2tukxwmoPgFxD8uMYy auCseX1coYihl7yzAXJjsW 2cIDRlapHkKCP4zORajYic SYHsox2wEBGvRrW1aXUsq9 kzyV4wPZDbu0ceib5bCKom YXJccGFyIFRoZSBtYXNzIG RhPDTapq66QAbekq8pgeLy uNqcAQEtzc9tayDwEGraGG KiBU2cMCSfF6ExIU80C76o KZ8mXZCeLFFnVVYmGXWvWE ZhYk9okLYflgVzRdAlUNTl UHzlLKBkIXB6AMmjBF9bFI SyIOV3HUMheY9fhCNejLM5 eI9iYMueIU8rz9NvPT2zln Yia4FnwC31e4v3LZH3cJOf WIN4blJgu7FcvBBsT4dnSm EnAFgbwlPfOAXnJR47hUSr uCltTIDdksbyX9JtfBIygN 3ubYNqs8HubjXbRG4shB5j AHOjOn4iCtqpQ11yJAHNRI IalqUvTI1oQKGyEN7aILDk QUoht1MxbCdbcH3miMTcir UuICBSZXByZXNlbnRhdGl2 VCObVIE9dP5fxhJhkuPyg0 IjsCu0aQFbCfWmL2Jkp8Qd sPryxP1jbbGymMCgZJXnKW Alh3MrGczeYYEjeRCvKFdu ijUku0HuZsavUJGcZin8ZS xcHQHiEP26LHBiRjGpJLJh xF4lx1EhGFVzIT9mwZ3bPO CnqK4hEQshlLvhpP3qIhFc eLq4Q9yqbFLjEHNdNERkMR fwqGUcSV19LYCsYbFwATNw hF7gPCExmn0qQBVsYzUjWG N3w7ZhG58doCIuF87zj32m kRWhOF1xNF0pRYQ9BH2fv4 EvfN3jP6ygg0FhzQJcPHYp r9Qnj7NduMyiWOAmW74dbG EvF85wq41axGRnAShrVXEx GtDJmMDlxJNiCA4yijgswz xwYXIgUHVycGxlOiBPdXRl khPbeUBnMGRzMS3gKXN4dZ GpaGGhHLDraDQ0k20dFG13 z4MjZXhvUTZsYyBrTePYYY N7pAKwh2WhuSJcvjBdNnex JCMbt56hoWOrnF1iOPQxv9 8cvFdtKGXtnAQfWFHnL3Ow y47bQ16nKPmuvBBmTNCzMe PTXRJkeE0cwDSrpWK9pCRh ITRfmK5vBX1dSNDfS1i6II WzcO4xTS0jljyittrkYP9r QjPqRUadFVXzPbC7NLntZG 9vWZSgdVA8JHu0ILwmUSBp DfQ3VVXxxTMxi2FmjCR7eE WkQO8qLN1fST99TYqygDZf T6jzBVNrncKtBFTiLOAqbh BVACO4ZI8je8FgqYDblXLd yWMmE6ruWI7vISPeL1YnXU BlbiBmYWNlXHBhciBCNTog AQqtcAZsCWPaK5DmbSKyTC EvnM0vVBArFTAcJ4OzjFSs FOA5EwOTxn93uL4hkTGjkZ mvd3zpQTEmcR3pAP0gsfmf fgjxZU6rKeIaQXldUEJaTs y3GL5fy9AfyG2hiP5tsgRf gHNuQWKobTgjm5gdHOFtxB 4qCLZxxhWLFAyoAOU6lnLc b7VwlEDkA0hoMMVuBG4zDE 87rP2zqFFjRTK2DBoeYYM3 doPdg3LnrNJhU0trCTYaCN Txon7nkxOyDKvwHPDqNHVp ciBCMTAtQjExOiBGdWxsLX VcvPAzzbFlvvAmXZC0eY4e UD2dXJKzYSyyPZSjp1JlSQ BdUKCvU15whJJkZ83rw95g lR3spA7xsHWxEECtEnBfQU NzXHBhciBCMTItQjEzIDog nQMevjV2gvTyiW1gTVB7JG HxJ4Cgg5wgpT2uZWTeSZMc qaPjuqiuLL6ucmrzsxvfrS VycGVuZGljdWxhciBzZWN0 cM0ge4ydASHrUiY4LHLwFF oiQUIjqbjlD0DybEOlFI4h BKPmK0Zbx3vtwW3eNYKno6 sxlnpsKWHbKoL8ZdGAFZGk QCQxeLxbn9adNSJybS2hSU SzbaNUETE0BELpJDhpJXy8 WOQ4cHL8zIPnq0ShxQ0ow3 vedYAuGDVkAM0chJtraNWa TOHmCF5SDbX2GB6gm4QakO 8tK4fdd6EwvHAaUFRzk1Kx XJKmQ75tlVNxK81zq52vxZ OeXJNnFduuLTFqukNwR4Du eGbkaXbstj4bEFQuwKRkOK JfTC8DYwH2YGPvR7Umn3Ih wCRes6CmaKh3NMFzvD1keE Ssi3QfJKC2fnmoEEZ3GVTc iCZiGFFxHoqfTNGeia6xa5 t4RRKdf3s1aELsDUf9mPZf FI3mLPPoBQJizAVgF8ThJI nsFFEeNfQ0LwAwPJwqn5Qc zQzdtF0rxOSnzoOxqVyjkR dtct4uJNxjnBNsm8SenPTa QGHyokZYAbu3TNFwxUxngU xnvv2nHLydZaqoIPJ3DPGs lYOrNLGlROvnRFGdvB9xrN Ops2QpRVIalOFxL7YhRJhu YXIgQjMwLUIzMjogMSBseW 8brTKxv8TpYLGsIHJoGDvh gDUnJUU4qK5iYNQqeNSlNO FxYhaqEKLzlU4hrKXlg1Cu AGAbdRDjpgvbRNX7WYIvcI BrSOOuJOptJEQtvH7krMEp v6WzQGL6ytfdJJH5XTEfyB QrWMTxSCynGMGasJ4rbZMl w3AgLPA6zogyELQ8ZBYjgG WjULLrRz5LUXCgGqYxVAj5 pTDaBV7eMJJtGitsXMB2JM CnqF4fNFYobEMzKYIoXQV3 SFcrCUKtLtNoSpApRPp0zL VpSN6tWXGoNCKfkDSjU5Vz RSoiJSPpBeBwKeKfLHv4xJ WfDQ2uAPDvMVAioEVzJ2Rn APxkGWTjZdO1IMI6VWhmFW ZqmQ3xyOIly5ZdCQUpoUNr eusdFEQ4OKFrrLNxVOH1Bg xfLSNtyaAnU3NetLdquPmm rs6oHPRjeWBdBYW6BthtZM PdyrZsH8WghXsaxGkuko2j FBCeaHCzFBW8EFA9DFEztE 90YLF2CHi1bBDeZQ6xUEAj CFIhstGTVEu9BPBiFSqyCL Pnw8ToTARgVLBnJ49bvOYo K76rz83joHAdEFY3HO0GCP Q8IPClNCnyYZYdx3UzARTt WETrK28xsSWmQ77pm80nDY KdhbRnaoDxqSDhf4GvrMjj neUfvZPlUDV5GyfpR67hmZ cjMq55GExrqQ7ua5ebsM1g AZAtp0geoyncJUJfRrF1BC V8PWpbS2oquS3qCAGuNTJd WMTrPDXizlhdz2weVuTvGZ ExbLAhBFOiBKE8SRVyeO70 UUH6JMu1aFXpXN6nZGUwGZ MrpxJOUCbtPiF0KnAFb5Yp aWJsZSBhcHBlbmRpeHtcZX OdD8ReW7RfysRckNSgEFQg qoTbj0hqNKA8DTWhfDCisO EyNnXxCwznPED4e5gnSFBv nVFvUWA3VLfckYIrEBTqPO UmVRzsMvPFOyUpDxQ3PPW1 QoTxKkM9HUx7ZPCUGfDmRa UtRvR7LZBpZkGoMEn4EKc7 CXzSPzJ7ExvhCXYbCWUzMF JcZVQdFGs6SBZmOZvlrIHn LMXePBEmUTzgTLqbL21aWk VvBIPCDrAOnbD0NOOjQLDp E4d6YbbwKPVsMrTeCPOAKT NlaXZlZCBmcmVzaCBsYWJl bGVkIHdpdGggdGhlIHBhdG zyykJfD6U6oqZgWT5eDWYi BRFqK0EeUXKxS06lJEBofY 5hITAuZT2aRTTnmGlxnKKj ZXJpdXJldGVyYWwgdGlzc3 SqJeAacdBuZQaeYZZ5LUZe PTB7JOLhJ30yCYwrkfIzOV DiKY3iSW73jVFdqLueZFWx nqdwiEVxoE51XOKvtqN8SS DhPWJrbRGiFNXym6B4VGHb cmFnbWVudHMuICBUaGUgc3 TvS0yhDH7ibCFat7RwaRIm dVvor2NedXephiIfPGUbBG JldmVhbCBhcmVhcyBvZiBm eCThk7Adqk6eLW7dYPtxy8 ZhLKvgg4gqvvXkTKGrCQuy CX83cGXeHFXqRWBQBOOuPA FjlcLpsYo3BKRsXAF9zC1g miTclrUvd8AhkDr8vZWcZK alRVKkMSL7SyM5DEVdpZAn AAU7LK5iCKHurzahMSAgQS PcYTL6SVbawS45mJWaMBRw MTZccGFyfXtcKlxlcGljc2 VjdCBcXGlkIDUxMDAyIFxc OSGsZ5MMDEZdIgX7CNqhPX NvUHr6WDyaR4WVCVKvUSUp ArS3KsT4EiN2RPe1OHJARr 9aPnp0OPHbTKAyKOJ0SDFc IFxcdCAyIFxcZmwgXFxmIE PfgVSpVKbxpoW3NSLbJlWm MX6pF45lj72xNBFhygukfe UgMOZwD8MixeKqZHAaKVFx VSlyPdPjIZZst3b4eYR2rB EswCS4cJNxwDnrPhBzAW6c iZVyAP1vLCfnAJkoyuGzk3 RfQI67iUZsanFeigYbFdOb iE6yZiLpxeMjsjA9nm4shM SxqPBePZInP52usgJyg2Bt R50rd97ddZMls4NrxM5fRI PnMUCqbEThveBgDT0fuPww AD9jTRFaH36apO7zHTzljY W9ZJCwPVFRlbNrCT4eYGeo WLI4TNSzOHOkWK9uGRQtIC CofYWxt5m9XPCmopJgpZXe g6Xaiz0bZQZuWPDrBTybOR Hsa35uuKtyKN0xjQ58MJ9h LEI4rZJpzTBkPUBqUDCjFM YsqQWtsHShDP14TMD5VcSf VGhlIHNwZWNpbWVuIGlzIH BrG8Ozd34kWIC5nyAxMFRd YWwgdGFuLXBpbmssIHNtb2 87vGNzbLKqq7Kcw7f5oMYf i6PgSSjuTHZocNd8TOG0zT JlLiAgVGhlIHdhbGwgdGhp U2ciFPStIKHhloytgyRqNq YiQI44IHPjNaHcMKgiluKb iKCfCJLkXvFuW96fY1HrtD NzvU7brBMmr8UxBgRhQfCn tfJnJW49XHGksuEae7SzoL rxoyZjORGxKDF4Pu8enTNz EV9inUBaPDLegzDZSLC3aA 3oCNNrJGB3HOMnztFAFOjl OE34eVCnMW2yLK0kcSOfI1 luXHBhciBEMjogUmVwcmVz MB49VZDyweYua8Bab6SqwP ptHCXsBNZnoT7wAWKpYKBo I7SgrPKvQCUaVtKXg8ujqy Q9eKKkUJCrvMUqDA7gYPQ3 YWxsXHBhciBENDogMSBpbn KkV2MhgFjgoBfujt0nYJwn YXJccGFyIENoZWxzZWEgR3 AdbN0fAN1BGhdzPRHsACHS K8VyJ563EKQasRSsUJW0FH 3slNrdQPPyY8GrI9PqigB4 XHBhcn0= INTRAOPERATIVE b3uexOVqRGGxwZR6TxKvDG CONSULTATION (test code Ioi7paj4PcxQJonRRuPIvd = [id number]) mFYsqiAdtz00xNS3gO03HY 5qGGZtTiV3MUOjagI8Zpe7 IWCkZEVsdMDcR357p3qpc9 kvckTpuUU9dWrxFMBizrqt IbM1VQjmHQLmcvhkNHv1DW psBSWguYT4WGUqdKOxV2Nh HPMhJA6dvjg9TBI0CVfcMI NyLpU2EVJgrCDnYMFvwGnn FZsff235CTY7EtBqPHBcrs R9HHkdURBaW4VkC5VaZYsm RVX5GZPvXSNhXKYiESWvFU OtQEktqaY2z6bwFXIczYUv LCQ5RCjvoDDcEMTkGBPrID edEuPUFoVjLuI8VWG1OhYz QcJ7FUs4REAXVeSiVqAsRm W0NKSjKHqlFAx0EDe6XMoA GkN8AeawHiDaZDWlBAGzJY SxKXz5KYSxLCojrYVsFMBz GVKwXDjjRKpdL86wpXgvzH 5cZnMyMCBBLiBCbGFkZGVy LlxwYXJcZnMyMCBCTEFERE JRXP5BScdAXpcaoIVzMI5O TEEPE98AL0GDRPLHWAJOG7 OXCMELCCZVHGQJEj8LBBRp HM9HIKAUCZQYWE3YTLPoej XkXiGLABRGRqDmOq4DPR6F KihVUYYmK1XGK2jWA27DYZ UbnrevMGPhFpUra5J3PDRb FncqCZObPMUxtgIpPR9gWC HmCwTKf4ruyJ6eIMJcYMiv ApKogS3lWNBvYEGaTgNeYc omTZNqNCX5OA40VPVorIJs ZAK8BV5ztHnxNJVaZ3PfN0 SdtmB1BZVrez3= Gross assessment was [facility] performed at ([facility], = 2777) Department of Pathology, [address] [place] [address], Technical component was [facility] performed at ([facility], = 2778) Department of Pathology, [address] [place] [address], Professional component [facility] was performed at ([facility], code = 2779) Department of Pathology, [address] [place] [address], [id number] 12:08:44 Test Item Value Reference Range Interpretation Comments Case Report (test code Surgical Pathology = 104) Report Case: [id number] Authorizing Provider: Matt Ahumada MD Collected: 11/04/2022 11:02 AM Ordering Location: [facility] Received: 11/04/2022 11:06 AM SERVICES Pathologist: Ruby Cloe MD Specimens: A) - Bladder, Bladder Margin B) - Large Intestine, Colon - Sigmoid C) - Ureter, Right, right asaf-ureteral tissue D) - colon, Proximal Margin DIAGNOSIS (test code = x0jbrLCxUTRac8rfTEDijE 3220) FuZzEwMzNcZnRuYmpcdWMx IHtccnRmMVxlcGljOTYwMl tvgsCcXGQxhVNuS6Lvgyzq NUmlPR7kQV1jsTtamRUixQ HnMHAgJrAmo7bke331eVLp d5fyQJVYxidnzJc5uYczK4 2ls2D0YsfjP88leAYcKRT5 YOGrXLYzqDQeBFUnAXW0YU PegCZlD8ciEZNrXP1mfwcx IOltABeeQURvcXS9NSCckU ZrC4SlJIFrIUyiGOSejst0 JzBpMz8osNNvlIdcWZcwQX UhQRKmHTseQAUaCgZlPH5z HksZPUWYRahpDALWA7cERX SZKZIBI3eQNpsbJKVashAm LI9iPqmemy6cfAQqtKrigk L6lZOsyJLtz0y4xZBbbPCo kxyxCWqcTqxccS7ojLrnaf 7snXExTABdMVZELCchuFj4 OAChh1HdH4UeP3omm73wNQ BpasbjOVTxIv1tE87HG27d OLIBM1CEDUVXPMlBZ7hLTB BBTkQgUkVDVFVNLCBBTkQg VHTYXMcLAEzoWLwLSA0tQR UZBZICS9LbDmDWDXVCHG1O OlxwYXIgICAtIEludmFzaX KiANNuVU2dI3GaH2phz71n LB6nABXiPZDhYYJ0o4FeO2 6deLIoP14hc05bBS7gZCSp YKGhaGnkGBjcSjJyYQ18gW O4KMLiNLshLPGxDSIzNBDs clxmaTcyMCAtIDEzIGNtIG guWLdeZHW4CRM0TLLknKGj r7lxepGzob6wi4n0JTKaQB PwH24sgPPfqUyoWTJzKFHU iiFkHMWlFOEpLVX9xZJuXY EqdCKpWYMfuY5nMZYjCOPq rpLzFD3aO3L8kONjNJQbgf XgxP6hdS10FUBkjRgdaiPv krMluHGaxM5alSRsoLFpsb Ybw1tzec2ioVXbAA9yIFmp RP8diyryioAzCTGgTIepHL Opg3PbUYLii3irpSRgOHOm IVXaoDN7VSptHGYhQ6Eey3 qgmC8tPEUwni46oX6aeRMz bmQgZGlzdGFsIGFuZCBvbW KkaBEkIF7skccafeFtcnTb BFDsddEbKr3cKUrbwzEfrY ErMRMijlSvkn0aCBVrieQa rDdmYHchGJLkLRU5i6GhSS NpYVxwYXJcZmkwICAgLSA1 FSKamR1jlTVuc8Sypxgckz DqBDMloeByLz2pYG6caVgc wlTgO7gmCTCrZZAzCHFhhd EdZP6RYAH6i4LwC70jjKYv jKSgw7Wbg0e7fMFsqDThfy NhE8Lee9MwyhJ4iJVpFRHs dsusu9mdfvmiCIKgf3Dnz5 PfpF81u9z6oV5iMRGdI6Ok TBXqxa8xZPpzLecrGAGsmk H5XPuwLSGfwMxav4neTDLj nn6uIGxlCPEpTAHeFZxbUF AgCU30V36kKFO2wQYcSS4d DTOmW44yRczyXC72IRIlcL amfH4uyLXsPLEwh6KaJBec dHlccGFyICAgLSBDZWNhbC Lfl3klbjXcyJFrm8Erp6e2 mBAvirXqsZhjfWGpL8SddD EalTP0i5FxxUbksU0iqFEs BLKsb9BrZYxjsQekMVBdth xrUGQnAp5pP14IACENUCXB UIGtSZJKP2zZXCOZBsyYMn JJEIOEFOexCMiQPYRPT068 ZVNpwsHeXE1dRyvjtm8wiF PwtNqujmE4wQNegJHwi6b7 aCBjaHJvbmljIGluZmxhbW 1hdGlvblxwYXIgICAtIFRy WI7pZPZ9OGIbZ3Qyti9auY ljIGNvcmQgaWRlbnRpZmll EA8boYNmMYZbsjHAQwAVH5 xPTiwgUFJPWElNQUwgTUFS B1nYBVRTGBZWS9rTXpdvsO MhGBFwJBAOv1uucvdeGB38 P20iONE2aBOdRB6vHSCnS1 6hEjetOT01VIppo8MofFP6 rI8bn2jhDyDaUy7qjy4siU t3cH0diGTaTQXcHXBmOSKl rxbdwiDfOBRfjDi0BUYirB 3yiSUkEI3wMPEbmOGuYWAb dvblFCDvkkNaSF9oVMBFSM 6LU6qZZxFNGJ3MUhZMLMEJ LVlmqPA7MHFIHHTGnGXrWW gSUzA7AEgwTMZOYRkIXkzk cGFyXHBhcmRcYjBccGFyXH AxifofWPW3w2jvrUAzGFPx dGUxODAwMFxhbnNpXGRlZm wcmxdpKIGrPBU5alGoDWRh CIajWVNqFBjpFi5hmUZqyK kqJqVwZBAyj0zsbtGRxlod qHk4i9biXJBbBrO0uYRqRZ psT3wnzyPnbVYvUQOqVCg3 oR56YHCrbS2gfSYzWSuqsk ChZmO2MCexBIDzYlA4MKVj fBSlPNHeN1iiIYHoJJttTS WrBGhvhXFkEGD4eKqsh5C3 bGVzaGVldHtcZjBcZnMyMi ZNp3HiFLq2cXekS6JeBUZa OdP8bTIyNLTvVHkuVFGoIO MfxuT8oF99MAsgjgC6mFEt d3Fgl93jx435hZ6egWIfYK T9ZJMaJROxjQXiMSGcQWL5 MOJxsQSmJ4mvTOUzAE2kww kaINobAOrpAOCgnAF4WOGf dOQeP2ExOPJcCHkyQCChzg y8MkWbKu2bfMNazUwcXWfa f2lzd8ubeKDtMtm1RSAoSg ChMqryBHnww0Foa4kqTKLg xw3uSCU0yYPigPeqs6H4sC TzGTWykEUyUQFrOL6ziKWr DQYkzZ9bcfwsDYXcRvQhci eqGOKkfRjerqFpAa0yxUcj YGE8SHrlO6qqqV0qWeW7ZG grN8wqeH3bHZa7JUjzZAXj iTL4yvE7MTWqzTDnT5UqqZ 1jDFMiTY3kokq9v3uaSKO5 OIdkCHPgDuD5xnU9UDSkuH IiVRDaoWjrAWjsp064KCX5 ObDdTSPuj6DkX8LruFbdX1 1mnNzpB39rHKEwnOvqnC7g sOafzH1nIpQeUlFsMBxykF cyIK8xVNBfI7vzdKOnBDPn AWSbU2auNvSlsW7wqRzuZK zdrzKvWLEyZam9ENRkcNGn BNIlGns3SVJaYAKcV45ain umLDF5pK0ti5uxi1QwGIjl XKR8FVGhr86eLJroacR4VV mxKb91QYieQSE2SDalLPD4 fQ== COMMENT (test code = x0vynTBoYUJubPM8LhYuNI 3929) Ena9hce5VwnKZtkZGoYRyg iVPuntLhru57tUH7zB64UM 6aYZFvCkA1YDUmizU4Pkv0 SPYsVSQvnGBjA144h2yqs8 ryvkOxfHA3MBAkIOVqH5Cq XM0kYFDolTBqZ30ceVEnKT O4JWTqEJUuzQOuOQByDZA2 GLPfyARiO1doONIyNV3sxw rgUGzqPVenTCYsmKO0NGDa fXXpB8GcEZRrUWvwQSAfga c9FhFjCj6gySBkrJxxGQlx YXJkXHBsYWluXGZzMjAgVG taMTY2wK5pWDxrel2jytWl IPXkXOJfDLL6t5CoY87yfP WqLKKeCDLjb9ZrG5pxeQFb AXrfrEupXYt9KSQ7wQJ9zL x2nLReo5z6zDSjJRExOYOe yUKlfVYcoV8dFAZ4ZYliRU HiT6GcfpZqn3MaNLXme08k v0o6eZVtXHvsc2navcS2re M6hYPzc36lsNzpCc58XSfi WF0jAIXgFCDrXTBaJYUEbH RgyZXuf2MjoCPinJ32j9u0 qP4zTWFjYUL5vLSkHONfuO VnVDDvmP8yHFGbEZcdzZtx IWOkw5YeLHPqUXJcupZhXR 4mKNTuq37aCV2yHPXuMhEp ru5yCPjfd3D2KQGqZT1aHG K2gS3eIZlvuoNtACHijCxc cECiBYijSITjBGTqx0K4gF 6jZC1gRNVlYOLxIVYgc6Rs iHsfj6Bvw88ikQojSt11ML rfb7ZiH8RbvA8uBUVRkEEb GCVyvbZeWIY5XnIrKCUuv8 BxnOC9yXDpKE9fgLIaZXUe YmVkZGVkIGluIHRoZSBtYX NjIVF6tErnoGL7GPAfI0Cm s5PekJDiESOgbYdceNRhGD KmSOZeqQRcFZd7AeZRe5rz dfXbGPNpzHJuyrS3iCXiTG q5TCG6vBE0sN7vgXHeeR6c wCpzIGFhD22pxDFsVDJqdR PruGH4WMFyvxxtn0VqcVGv JLPhSEOfxkQnmW34w1x3JG 5scvLvu3SrERd2YZP1uBV5 tFKgb8k5tPDzu8UcS2weyA VkIGRpdmVydGljdWxpdGlz UEAnPMN8bB8ytr2dER12NJ SetNsvBRRboVAiT5OhZIVw ptGwNPW0JQUkKEXbeUZmSD JeKRBtJALuQHommXhoeg4e yDptsWgiqy1eYQLiahFujQ oeorPjfMJ0T8O7aoUmODie zl7hevZaJI98RkgqGHAlfM FyIFRoZSBtaXNtYXRjaCBy ZXBhaXIgcHJvdGVpbnMgKE 0DRZLcQN7LDHKcCC9YTRSs JO8lANKEAxDlOXmlahJvzA 46ZPI6QPVwEIWejuT6dMQg lROae3YaRhwehFH1NHGwyL 6lnZPuVFYdCSNWUuScYEI2 NuStL2UcGHnySLEwicpgDO JccGFyfQ== SYNOPTIC REPORT (test COLON AND RECTUM: code = 5765) Resection, Including Transanal Disk Excision of Rectal NeoplasmsCOLON AND RECTUM: RESECTION - All [id number] Edition - Protocol posted: 03/10/2022 SPECIMEN Procedure: en-bloc resection with sigmoid, rectum, cecum, and terminal ileum Macroscopic Evaluation of Mesorectum: Cannot be determined: Due to mild adhesions with the small bowel and bladder TUMOR Tumor Site: Rectosigmoid Histologic Type: Adenocarcinoma Histologic Grade: G2, moderately differentiated Tumor Size: Cannot be determined: Due to marked adhesion with the small bowel and bladder ~ largest dimention 13 cm grossly Tumor Extent: Invades visceral peritoneum Macroscopic Tumor Perforation: Cannot be determined: Due to adherent small bowel and bladder wall Lymphovascular Invasion: Not identified Perineural Invasion: Not identified Number of Tumor Buds: 2 per 'hotspot' field Tumor [place] Score: Low (0-4) Type of Polyp in which Invasive Carcinoma Arose: None identified Treatment Effect: No known presurgical therapy MARGINS Margin Status for Invasive Carcinoma: All margins negative for invasive carcinoma Closest Margin(s) to Invasive Carcinoma: Proximal Closest Margin(s) to Invasive Carcinoma: Distal Closest Margin(s) to Invasive Carcinoma: Radial (circumferential) or mesenteric: rectosigmoid mesenteric margin Closest Margin(s) to Invasive Carcinoma: Small bowel, proximal and distal Distance from Invasive Carcinoma to Closest Margin: 7.5 cm Distance from Invasive Carcinoma to Radial (Circumferential) Margin: Cannot be determined: Due to marked adhesion to the small bowel cecum and bladder muscle Distance from Invasive Carcinoma to Distal Margin: Distance already reported as closest margin: 7.5 Margin Status for Non-Invasive Tumor: All margins negative for high-grade dysplasia / intramucosal carcinoma and low-grade dysplasia REGIONAL LYMPH NODES Regional Lymph Node Status: : All regional lymph nodes negative for tumor Number of Lymph Nodes Examined: 51 Tumor Deposits: Not identified DISTANT METASTASIS PATHOLOGIC STAGE CLASSIFICATION (pTNM, AJCC 8th Edition) Reporting of pT, pN, and (when applicable) pM categories is based on information available to the pathologist at the time the report is issued. As per the AJCC (Chapter 1, 8th Ed.) it is the managing physician's responsibility to establish the final pathologic stage based upon all pertinent information, including but potentially not limited to this pathology report. pT Category: pT4a pN Category: pN0 ADDITIONAL FINDINGS Additional Findings: Diverticulosis CPT Code(s) (test code s1rleOYeCRPthDO1OrGkIB = 3357) Qga8jgl7PflVYmbWYiAUlp xKXztjZwsf43oHS0sY60NY 3zTJSgBgK3NSCbmxG4Koi5 HBDlOJVfzTIiG788z2nsl1 dopeWznUP9aMdhBLThtsms WjG0FYorISGuwpegIEo8WW dfABJvdZL4VFEzoPOwA8Wt MZIyQZ6nlmz4BWU5RLvcNK CiWtF2EDPaiXWjNWTcsLwx SCojw626NLK8PuStHEWvik QsmElxeF9fLsZvEWG9KGNi AVO9XMgoMGDfUAhmOAR2Ar yeEDIbSOmrZQi8GAzkPOWp JWkgSxGdiENxHBl8OpQvfA JccGFyXHBhcn0= CLINICAL HISTORY (test w8guyXQcQEZexJF2ZqOqVA code = 3356) Zqp9sjj6VfpJJwiQLjQUoa oOMppkWazf40vWC8tJ76QU 8oGEJuXzZ2PJJodmJ4Uuk5 HVKyPQUtiGSkL783f1pdf7 vcplCqaZC2bTtpSOJzplsb CgQ8CMwlHCEwoffcQCl6EL xuJTXwcMZ5GPGvrRLsT2De WEEcSW5sida8WIM2IMvxDX FvZcP3ZHRspKAsXHXauHxt ELpzx982AIL2KhMfBZRauj QoyJsqcD1qUhLaTZD0ApE7 Dg6gHJ7vbWTcq6g8wSQnRM NRGIMnpLhsxENfU5FkzQVk b8OsCKAXNMCoPKYATIC0By HnpVXsMgLyZWWmYESbm8jp bCBtYXNzIGNhdXNpbmcgcm SgsGRcL8Xdd8FxfYBoZ65e rSTzn5WxyLM5X7Zql17xDP Bhcn0= SPECIMEN SOURCE (test d4bkmXByIKIkkCI6HcKdWS code = 3377) Kzh0rtp5GwgQOygNFxVAtm tPOzawDojr74nHF0hL15ZQ 2aNKQjOrO3FSIbazA3Gui6 CCWaXAZxuRJvP357c2wyz8 efrhBxpVV7mDxoJKKjqwiw PjB6EAvbPEWseowvJVo4WU gbXZXzeKU9KEPxtDXdH3Rf UFFpTT9zqxz9KKA5LAhoZZ QjChV1DYJhvDYmHPUsuFvs DZszx363GKI1YzGdJLNodq WujYhwsL0jUxFtJRANBGK7 g1IsL10xnHEeNRScJQlaUI Ohm9EgOBGkuZIaJRZwARXw cn0= GROSS DESCRIPTION (test s9gnlEHhDPAkpSS0SiQiGP code = [id number]) Bxz2eyk1FujUIupVXlEUwq qJZvqcKpou29aJR0gH38ID 1gKOMeQuV4GKQvkzY9One9 FFKdOXNpxRZoK936p3caz8 titkZlfZH4lFsrODZuagmu ZuK1NTokBIXmraqfHIa1ND djKICceRB3GZIkiTXcU6Tq NJYdWK0ovkf6IHU0VKgkLN SfKlB1CIEhbTShSEOnjNxw HPouf167QQC4CvDmYYYxgd H3PLdtGDBzV2IiE2YmYUty XYL8SPTqHJTbPIJzODUyOF VyZSwzppX1f8tbLDOdfAMw OJH5HHoobRZqOLHuCCJaPP sjHuWEQlWwNqY0PKL7SxFo QaY5AOg3DWKHJaUsJuCsGs A1BSCdYVncAFr0EUt7GEuX HxB2FwtnCzjdUrvrYOVpIN OwRUh8MBSmETkwaLWaVOFr WFLoOYggAEtmC56svZpxwP 5cZnMyMCBBLiBCbGFkZGVy LlxwYXJcZnMyMCBUaGUgc3 WuF5ouZT0gvINvpuKjHEy2 CMCoNkOmn7gyLf7rBVNgw5 jdvrYnUPG0cL9aYQBiVQuk l0CqvupzyVMtCNikFGZ5mU DqPPXpDJWkSYWmZU93ZSjo NHMgbmFtZSwgTVJOIGFuZC AiYmxhZGRlciIgaXMgYSAy IxNbyKErWFFjNBRla2EeXH 49CULzLSqxsKTvVKIbWfC1 tVc1VFNogPRuj9KfVGciuX OaANL1trPkSXOfmATfRD6h WJLhOnYkiN2sCMEzJWGngU Btx9UzjJUzsP9aKW2sqbxl AqrdFtGoVLahCW5hmshggn BpcyBpbmtlZCBibHVlIGFu OSW4mUDni0GjK1rqWP3miU Mlt1SlmYRhvXfra5YkxNpf eaE7vqNbECWtPGctdU4cOK 1hcmthYmxlIGZpYnJvdXMg zKwxz9KxYrCxUEqlDWLzOX NpbWVuIGlzIGVudGlyZWx5 DLZ3By4vuRAdSR6kzFDyWA HxrgMDYQA2cK4oSFSbCXO6 XHBhciBGUyBBMTogVGlwcy xlx4DrtEq4iGLgMQRysOKi aWRlIHVwXHBhciBGUyBBMi 1GUyBBMzogUmVtYWluZGVy KN2nWPQwLUQxiCClKMElqa CLB1hxTZLhJ6JqB4NgvrFm uBVkUVXkpmPpe7fsTFF7OU NsbXVsdDBcZnMxNlxwYXJ9 j7zmQKHnvJAcURD5TZszxW QgNTEwMDIgXFxkYiBPVlIg QpN4QSY5OnErToH1ZPf1MU ZKRlLlOiRjZyQ5OWT4HeEt TBn1HVb8BImWDfA2NxlnIQ IfJkrpAUYgIKRgTKb9ZCJh XFxmbCBcXGYgQXJpYWwgXF xgM55nLcEhFFVWZoCRGASc BALAlrUhf9YrgvWaICHboJ 4wFV2iO8gdrQ8pBB0mxDCx FUKyEzNxR55tBGtvGUXxpu UpALg4XLUmJjVyj1pzvIFn IGrqKIS6tKXrFDOkDKJoJN DpSJ16QTyhECEehmBdVKou bWVkaWNhbCByZWNvcmQgbn PkXxOdOEZoQYMsi6igxC2t ZCwgcmVjdHVtLCByaWdodC Qpe3riajVppKFzSZ0fDO2e HqasDhQgMVAsO6Fyt26odP 0owD6qaTNkESR8VIXouR4n rAPfkKO5tHEoHUAaZEDloL CquaGrBC2wjQkgMFUnBTQy bSBpbiBkaWFtZXRlciksIG UqT9ZtWNg4OxPjR86bqL4a qGZkJ2LyXWZoKWTtMwPxO2 3bqN8wGJvyrUF5NSEaICLk XHhil9RpJA2bGX27zJ6zPE eonZYoFAtvCY7tMQUsBVjc YWRoZXJlZCBkZXRydXNvci AayMInyCPgCKvxCnY9UMzy pWRwOvPuV30bFBXvLWZcm9 NzaWJsZSBhcHBlbmRpeCBv vtIdiYNnvuCuX3ZxCWIdQd 68FZGdBVexPKqpnxz2uBFx yiLpPY28IQFxTZpuDAUxIN 5xjXZvYA2eUSOdDYRdMNud CYXsiF2oKTLljMByRI8ywR 55PV6wBL8gc2ZmcKVouJ1c IFxwYXJccGFyIFRoZSBzZX Hxb6ZrqXQeGDneQkUdOSc7 YQLunqids0LsUTA5qFEiVL EzhT8kFP87EFQtu8RhcKJo GdYqJSlet3prbvRsCQYGsR Ffz5Zfy8CvGV6yKAWhGYPs iLWrfDOiUMzhIQDcDhM6a2 SboNKdBV3rbvVwHYfeOz4g URMgLYMwEBR3wVSqfeYaBO thbiHwAHPvBHWbEDL2NWBv eL5tcYSahMP1oKYnzhBrgV myFMDjpm8clsWfGTfbPURh FPdjYRWjkCDsDIPlxP3wmF uiWJXzJ14iwIUiQ32ee16c YVOUmBAvh4UvZ3gcZB2mwV Xvi0GmlbAxLIQnVFOhnjRu kVRibgXeiAjyWCVpkF7gZA dqjOktzb6bZHOpAQxdtSim qzmcU5KoqPjxt22umJKoXS 2xz1WmcBGgJIIhx2NvCjQs HNDbNKsxAVDuWTRiCC18CM Fgu1HejWksYMDrXVKzpGFg IPafWs67CCneOU9uCTrcRc 8mGLMrKR1tWBZhYKLrIHUd OBfrWTudNZNnoOUphq5tFQ XyKDXxeIE6NGkhvgWgzWGd VZ6icmjynnqmBZCdNVJiaY Yxey5pJUWlUZGoac63yZ3o uATucDseu9mjCM8deunihj odXj1eMGNfOOBcl18cgUgo ALDatl3mqiHvMThoODKkQJ 6zalrzkzmsJs64WFVjIBRa h83unHugMZMvD9OpVKLoaH 5gVD2akmxlqoywWA5oJOKk MZOnz72sbYqoNV3pST04jH 1wvAIfC8piKYMqiHCay5Nm aGVzIHRoZSBtZXNlbnRlcm ivKG9ibobuzcMuXuO0iZQg rvBudE2fyHvgq9xsAWHvoB 2fUSCfdcLaBIN9yUOahBrx QDDjjn5dUDLgQkH9tKPkn4 qwyM3tKRDbm2ryhf4jASwz YXJccGFyIFRoZSBtYXNzIG OhCYTydl70QLbcii0wgpEo aBirYHZlsu5tsdGrUXcrCN CtAI4nRRCxF1FmQP69Z34z SD8cMAKeNAQvZQQjCHEcCC XxDa6ulZKmlyKfXxChRYTt DEpkEGQhDWU5UVquHX7kWT YvTGJ7CSWmfP7bjQLooHT3 kC8wAGweTT4ob7PfJB5tqf Xpf0EfsA09h0z7DAX2lUWo GCG8fwRsc0XaaVZdL8tmRr UoDAgycmUuPJRbAR12eTYz uMroMAIjbzvsL4VqhWOdxV 0tsZWcd0IlmdBiVH1tiS8d NIRzXw9kEaslR71tFECXLJ TvwlNtXG9tLOBeCI0fYLLj QZecr1RwaChhuH9ljZSlba UuICBSZXByZXNlbnRhdGl2 AATgQYL3cT1hgeKjtnSjc3 BmcUe0sWFxSfSdN5Stj1Xv pChgvE5iwmUfwCJmUDZmNF Nmb2RmYrudZFKyoVOgOKcj rjFna7UkPopiRGDrUyh5YS uaSIEcLU76QPHaMcDzKSCs mP1ru7VnFOObEY5brS7dXX JfhW6bZOcduDkogJ6oXjCp zHl8F3gdmIViCYYrQGXfSQ pycCZoQO46MSIwQtKaWVKo uO1iTSCxkq1cXSCtMaJpDE P5y8UnI78zwFDfW11vo18b qDUbFH2sPH9wDAO9EE0qh3 AaeO9oV8jkq5WqtAUdMHEt l4Mkr2PnsYroTLTzN30zpH JiE89dw76qmJZeEBchNFPn AvORuUUylDEqOC6fsrwikf xwYXIgUHVycGxlOiBPdXRl uiHsxVCdJWGgKX4jLQH8rL XrfTIkSHUaaET7o76yVA66 g5AwCJsfVGBtZfYgZlYZND Y9nVDgo3DevZGtbpWxWxhv HZXhw00ncYUfnM0fKJJbj2 1gsVilUQJsvCPqLHHbR5Xt g44zU29mOZtykIHdCMOcKw XZDNHwtR8qjFEdbHH2qYOi BWPfrH2fDA3sYZRlO2m2CS JoaH6dDD9jubwyxyueNE0g NmUfWRaxFFDqZzF6NNdnPI 7hTZShxLD9OOi4UQhkEZQd DyN2NUMxuWSgv9VxeDY5rV BiPD7tSY5yUA82PJnpnTWj O9tgPWTgapBrAQEcNFGopv NKHFD2LT3ac5ZygDDwcFJs kSWpI8ihCI3fBTDyX4SyTU BlbiBmYWNlXHBhciBCNTog MHjgrKVoVJQvS6VweRUjBT XsyX6eVDFxEWYpH5VofZVo TJA3XxDFhw82xR2ayQKdrY aef7clXPCrmC5cML9auxru gthhOY3hThFzSFhcTFAsFj v8KZ1rv7GlaD4wnJ4ksgUc lFIiEUBynIqzr2naFAWakF 4mFBFcppTXNQhsRLA1wkUe x2RazTQaN4xyCYTzPM0vDK 13zL0tqFSsWDU0GPnoNAK3 ibItz8VgdDSdJ8vpRFWxNO Ckhx9tyvWmSRlwPNZlMUWg ciBCMTAtQjExOiBGdWxsLX SreHIqqtZolrJkPKH8iB7e VV1eGDDgYSvnYNXfq1SuAD PdWDCgS17meWNmQ48wh60x dH5kvB6puIHmKYXqAaEnUN NzXHBhciBCMTItQjEzIDog mQMssiU6vvKzyV8iOAQ1DH WxQ4Skf0ulmC5qKBCbIFHx dnMplafsML7laitjxjaxrY VycGVuZGljdWxhciBzZWN0 cD5ob7wdHLJvVfP6IMTgCM iyOYEgrutsX4NiqLGjCD0z YDUjJ4Itk9ljrQ2eAEXbx6 ilnuzhTWQzRfE7VvRZMLWq DUCvnOxrk1knCLVebI0uSX VocxZQFWS1GIEsBQvsJWl8 SHQ6rLP5pGXut9UerB6pj1 gvjFKdHKVlVX5ozRxkrTPq QKOqLU2LMnZ6JT1gk7PvnA 3kJ9vda8NsjOUpTLQjo5Io DFJxB63emXUuM30ug09epJ BnRZYhDwrrPLFcskSsY2Uh qGcuxHwkyf8xGWAvpFWpAA NjUZ5DEvZ2KKNvC4Eth7Gg oHWuz8VwnYm5CVQlxL3wvD Eku9AfFKI7anzhHBF2TGFo wHLyOFDiBxblFBWxoz9pa6 m3YCNfb0p0uVQaBWk6bBDq YI2pLINwUPOirSDfL7XuHS roUBNyMuH0BqDgWQggm0Ve tOvnuM9raSNrfeZqsFksnF klso9rMOfoqFIdq0YpdFTd AWMopuSXFxa8XIQvsWeotZ dvbv7oFBafWhrsPUL2FBNv vESbTFHvHYfsENVfmD6dzT Nqo2UwSAPjqKPqW7IgVLqm YXIgQjMwLUIzMjogMSBseW 2wjGHxd1YjVVXmORLkTXvz mVTpENO0mS5wHOWhuDPkDF CbDmhfXPKjrK8pwTSnw3Gh CCJdaVDrhlpfWCP6BXMrtR FgHWHuQJlmNXHlsX0xlBOl n8HpMIB1yogdRAC3NSZxmD KxPHAtWEhrPQFraG9wjKEg r8BuUZT4ycsvOCK5RREybR UaQOSfSl3YSZPlCvKhRJp5 jOLaZN2vRAQfHlyuHAH7ZY GcdR8cKVUypNNaMEZdKTM7 IQasXPRbZsOlSfCcBEc5bB SnQI2wZCJcDLUabRPnM4Bq DAdeMFIoEuOvMzCuZQd7vW GeCY2wHAJyHLNutETeZ8Lu HFvrDYTyPqE9EBH0ZTdrVY VnjL8ezIVmq1QcFJWgcJBc amlmCLZ6IPAftPAlPHU1Gp vrXQBbkmOnS0TfzVkxtUec wx1mEPBajYPbODK8UuwdPW HiaeAeT9AtoRpojYjbir2c BQZlmXGuMVN4WLC1ESBceL 04FHD8KWs5uHVtSW8lQLMu PHWaemYTSKw8NEEeVCazHI Okl4VnCWWjGNXdL65ttEXv L71jz09lwMXsNLP3WP4CNN I5FKZzLUvnDKJqo5RvFLFr QULsD68sbLNkN85du16jNX BlilXzsvHmlITzo0FlwQre auQlkGHoFIJ3BuftX83juT qwKb77OAwhkX8wx8ckkB2w RLPai2dwhrhsUOTtYrB4EC S0XQcmW4xiiW7pIXGvZSFt MUKwCAUbiesyp2uwRgKmFE RydDHeNVQxLMB9BQYhwS32 VNQ4UPy7fFJbFE6qKTIcET NgxjHVXSraYdY3MdCKe2Nv aWJsZSBhcHBlbmRpeHtcZX JpT4PyV9TublJrnFUdTJSh fkSct9loULF6CNUlyTJlhP YiPcQaZsbgVRL3h0jvENGd iZDmMVF8GVgqkBYhIQZkHO XsHCgzFvHRIpMnNvI1ABB5 SbGrLdQ1TFk7KUYWEgDeIa KdTlD6FQJfNrStAOw0NPa1 TTfTEgP8IycbIFGdADBdRZ XsASWyZTj1GJJyMTsbjHTa ZGFqCXGiPEerUGheI78uHh FeDYGJAtEDzaA3UZMfVDVw X6r0FvxyGJAjSaNwSROYDG NlaXZlZCBmcmVzaCBsYWJl bGVkIHdpdGggdGhlIHBhdG ytleQoJ2V0orYzIZ2rVTRl FXNvE8WeZYTuI10kZVJcdU 3vMZBpQN2lPYJkuKhzvOPn ZXJpdXJldGVyYWwgdGlzc3 QqSrSaybFgTHemOET2PBJd MCC9OZGkN20hBGbsdhZqXY BhMY8gZF69uLUooUyyNHXq sckgfDLnnK77XALikgR8QQ QsPJHwgNHvNUFrm7E5NMDh cmFnbWVudHMuICBUaGUgc3 VcW8bnZC2fjBVss1CuvHEe hDfrq9CdwYwdpwEaJXGiQW JldmVhbCBhcmVhcyBvZiBm bXGsw1Pusr5hMZ1cOZvyb4 UkCAtxe2dwtvQlEQEdOZjq GJ29ePVvSHWeDNMFUWLxMI YgkhDfeNj2LCRdZTY8bV8k rvJojqDgg7JsjTt2bYWjHU ipGGJhPZO1LoV4LXGosTQx YVF0YF3gYIQgwlljRNKhGT PqXMY0DUagwC43mNMsIVAg MTZccGFyfXtcKlxlcGljc2 VjdCBcXGlkIDUxMDAyIFxc SYHvJ4SZISShNlR8UCtfFL TiWCu0SNyiN5NMGXOfCOZn SgH9WeO7FpX2MDx4ZOSFXe 3uBdi6EUAuRALnWWO4SPJr IFxcdCAyIFxcZmwgXFxmIE WzbULaOSvjsyU9UJEcTvPh QZ0kP54dv01qWBAeadmsnv HaWDOsX5BfblJeYPEbOAUr VJahAqDvOQAnz8s7vWI0pT RriAG2gTJlsFecOrHqJW2g eKTpUJ1zIWyeKPakhnCbj5 TkUB79hJIwtlCccmYjKzFt zJ8eNwJvprFojfS3ox8ekV JeqCJeDPAyA70dkgHan3Az G22ob93pzGQgh5UslS3qRN XjRNHlvSVypgIgIQ0qjUwi UP5vLTCiC09olA2tMVuqiB W6QIAbEOPSkjTyHF5yKMut CXV3JDTqNISnHA3sUZEfFM RjuZUzd3m6FIDrwfJrhFJs q8Zicb6kKAEgIDIzYFykHT Tlu33nsLfpLJ9psR08ZK8f GYM8rKDmwUEwCUDuRSHnXF WfmUOpbSDgSG54NWZ9TxDx VGhlIHNwZWNpbWVuIGlzIH AvG3Nkr36xXAC6fgRlBHSb YWwgdGFuLXBpbmssIHNtb2 19yHGkeHNmt2Qgo3e0tYVc a6HsLJlkEWIpkQb1EDF5aB JlLiAgVGhlIHdhbGwgdGhp M0pvKNDcJEKrgfraxzHfPy ScXY72TEIpNjFgELfyurWj pZMtGHCmQoMaE07fW0BbcX BewW1ttYUmm6PgSwXtGeZu ukSvYX18ZGXxbtMob0TlyP kofvAcLZElZBM3Ha1zrEBe TX5baDRsZFCmbrQKVCU8nQ 4xWNWpPUN7YYFwcwDVXAce KY93oSXmXN1pEY6owTKvP9 luXHBhciBEMjogUmVwcmVz XJ23GHHoygZdp8Yag1QwoA ujANKrFSIzbV3aAJSrCQQn M0DqtARlJEZrEkGXp8chkn V0gWBcHXFefWFjUQ7mVAF2 YWxsXHBhciBENDogMSBpbn IqW9IbtMpusUvada4xWCax YXJccGFyIENoZWxzZWEgR3 JsdK5kKL2SBctsSFZyVMJS E3UvC232UABlwOEnIFT7TW 3uuEypUUReQ8FwJ7NofhR7 XHBhcn0= INTRAOPERATIVE b9bjyWJfWMOpvTJ6DbGxDC CONSULTATION (test code Dqo2ivf1KvwVVwkMCsWEfh = [id number]) eOFsedNsfq78iUR2iD23DJ 3iWFFzDnC9APUbkhW2Jvi0 QWQyOTUuwPSfZ552e9qtz7 qhsqDzpAS9zCrhXCRtgyoi NmQ6CWunVXNdkbvzKSf3TW aoHQZnzAT2RLPzpHTrK4Jd AUZzAO3tiuv2QNQ5UJhfEH VsQyI7KSXgfUBfFJDlqOfs ZEdco436KBJ6XiYgZJNjxe O3OEvsCZMiP0WpJ9EqBUsj AFW8SUMzCFScHCMlGCYeGH IyQYiqkxQ9d9noADZitJHn VBM9EKgzqVVbDXLzUPYaOQ iqKiPTNrSvRfS6UPO6JxJc FxL7DQd8NNTDQrWePnQgZw W9UQAbHFkgIWu6CVs7KStW JqE1ZtpxFwMwAGEkJBTvLQ ZgKRx8JRXiZQrucJQqLWLs MGCaBVrkVNgiN56vxPpqcY 5cZnMyMCBBLiBCbGFkZGVy LlxwYXJcZnMyMCBCTEFERE IUGE1LAkfODeobcXWnIM3Q HVSCA88YE9RVIRZZHRWYM0 LSOEDICPMMOBCXXb6XPVDv RZ6VYKKEDYIUDC9XGLSwrh RxVsGZWBKJHlGaPq9YVI5F UzjUFBFkP4ZPC7oMF01DJI GgmcywJIRvSmGfb6J6YJVq LvabZIEuKZMlkrAgPE6aUZ ZhUgSWj3ftoN6oJDIjNGae PxHbvW4eVEAuMNPiLvRlSy tqCULwVBW6BL08ZWIcjWVa CUK7QB3jwImeLBPnH3VcT4 BvyrO7YXRppr1= Gross assessment was [facility] performed at ([facility], = 2777) Department of Pathology, [address] [place] [id number], Technical component was [facility] performed at ([facility], = 2778) Department of Pathology, [address] [place] [id number], Professional component [facility] was performed at ([facility], code = 2776) Department of Pathology, [address] [place], [place] [id number], [facility] HospitalTissue [id number] 12:08:44 Test Item Value Reference Range Interpretation Comments Case Report (test code Surgical Pathology = 104) Report Case: [id number] Authorizing Provider: Matt Ahumada MD Collected: 11/04/2022 11:02 AM Ordering Location: [facility] Received: 11/04/2022 11:06 AM SERVICES Pathologist: Ruby Cole MD Specimens: A) - Bladder, Bladder Margin B) - Large Intestine, Colon - Sigmoid C) - Ureter, Right, right asaf-ureteral tissue D) - colon, Proximal Margin DIAGNOSIS (test code = p1pnyYPtIGLnr3prXTAtbL 3220) FuZzEwMzNcZnRuYmpcdWMx IHtccnRmMVxlcGljOTYwMl ouraBmCCKhlNXkE5Izihpg PTogUZ6jBQ5onNzjcBRldL HxLQFdXbZxh4zax034oROy n4chTSSWtkeexUo6cFxsG0 4nz0C3ZanmV51izUVhUTG4 KAGxGSJxgHWzQFPtITT7JV BzfZHaY5quCQHxFA5nzudg ZIjqPNuvZMGevAW9YVRlqC XrM5WcFZMgMAbsSTIchni2 KoRvHw9raKHiaWqkTKwbKK WgXTVyPIwvIOXyJfYgLN3j WyoZQJKLHgvrEKNPN2nDDS XQSAPEV4yAFkaqIMEwmaFc AU2nPioisf0amSSedHdlvb U0lFOslVLds5w7oPBuuDVg wjhaWUjyBdmlzR1vnDbgiz 5oiAUqBWJdFFWHTWtzhYu3 BTJmw9DwO5IxP8ixd83lBX KpmazqHINtUo0vQ53TN53d UKRIP2HSAKMVMOgRS5sLSC BBTkQgUkVDVFVNLCBBTkQg OXBVGOrYBHtnVZwXXR6kIM NDWSPEL3BlPyLVZMOCLZ7U OlxwYXIgICAtIEludmFzaX OlIUQtZB6eI7CfV9pcy02l IX3nHYFfNJWrKVU4k1ItF7 2qhDTrZ56wl11sNR1wIZSd MFXagKqpSHzoOiKfEU60zX S3RZFlVFvsFIPqCQSpNUQg clxmaTcyMCAtIDEzIGNtIG vqHKdiUNS1BWP7TYGiuPKg w8ajgjKhzh3ir1v4QXAvCM MtQ96heXFxzHkdLOYjIGFP clZmSYLuTTGmQTL0uEWiPV PdjLScMNWduV9xABAhIFCl jrTyOD5nS9K6eFWqZOCxwk AtpC9gaE52RBDxtKlleqZz bpJzhQEiyX4lqBPyiVQily Amo5clmj4urCEzLY1pZNmn ZS6crztisxXqCLEbCAnaUH Ojb8TkEEOke5mszXXoUCIe UWYdwWM7SDrtZOMlT9Wxz3 ahnS5qCHIhlz08cE4qxYTz bmQgZGlzdGFsIGFuZCBvbW TpzIQhSH8tqszkmaZymmAc OJZyepHrPy7sASdazoSkwO YoQNNycjCjsb2tPNSnlzIv iAroOUoaUGYgKVK6j4AiWS NpYVxwYXJcZmkwICAgLSA1 CAUxmC9qrTEgm6Qrchqadm KpFJIcsaExSh7bQP4kuBdh hgWiD5uqGDAxQQXwUZNhxs HgSC0UNDQ2k7DrU52voXQq pJQhj6Khg7z3kSWkzDTofd NgQ4Qob7OoqiZ4xXRxWCTu zfkmq8lvijjxPIFyz7Gxp8 AaxS64w0z0pW5oPMDiI7Ml FJMlrr3bPTcpUbeiEYZlet H4TUwsKJBjbCaed9mmKCSb jc5pRGxuFNShXQWbEFojEH IeCM57S88fVXU0lMVtSG1s TMFwD66wKavvAX35ZEQgkS mtvY9bsTMkJXKwj9ZgQJyo dHlccGFyICAgLSBDZWNhbC Lcf2gasfHtoJLpc3Akd4b1 uIHperKlxLkfmERzH8JumO FsmEP9d2WsaClegU4kmKFa KTKdn8DcMPpstZwmICUzlw vuWBPhVq0eF13CCLCBMYGL UWJsXRGQJ4jKXXORTatGUv RGRCEKJRpjKCpWGYZNH051 LVRdrfJhOX0mMowwkj1hfZ HcaRjteaS9mMZehZDsm0w9 aCBjaHJvbmljIGluZmxhbW 1hdGlvblxwYXIgICAtIFRy NT5iVRT1KFUzJ3Naud4mmM ljIGNvcmQgaWRlbnRpZmll XE1reWWmRQCkxdUZTyVLS5 xPTiwgUFJPWElNQUwgTUFS U4dXKUTRILYST9oWAnrnoX CyCSSrEWVHq1kbitwgDF20 W24yVCL3xXNmOF3oPAPwE4 9zYluaQA73GKrim6HylZD4 yY8ai6lbHoXvAc7wuf5kaP r3xF8meIVuJQNuRYJxMOWh fmrjluDqYAQhvUj4OWHcuB 8oxJZmCY2lXQRhaEAaTVNx unjrFOGanjMcZC5eVRSXVF 9JE9lERrHEQF0VPgODXEJN ZBpbnYC4UEKZJHXRkOStJY iRGyW6SMixRUHCIMwHOnim cGFyXHBhcmRcYjBccGFyXH IvdwxmVKW2q7qnkQVdRCKd dGUxODAwMFxhbnNpXGRlZm xplkfaFWOxDQK4ehZqEBXa QHxcDZNrJWybIt0lbHXhuH yfXuZdRKBvd2risqZNhuzy uNm5c9jcACLaKzV3gCTdEL qaQ4ovrqDuzBAkKVZfOVw5 wG01PMSzdX3ojWQqXCizdq JjHlK7SPljNINhHwH5DRDj iVJsUCIuG5vjNGKbCWzmMD PyTLfpfVGyCTF6hVvor8S3 bGVzaGVldHtcZjBcZnMyMi FEz0HvOHc3uMfdT1DgZMKz JjN2fLAiVXDmPLdtNJRuCP NrsuA3wI29AVdgxaF1dMZs n5Vjl45ga307aM7jbKScRD F8HNYrZLEuuPAjEOMtKHY9 XKXkgUOnB3ukNJCxUT7qoa zdKSkpQIcyEOLudMR4WUKa mWZzE2WlNHAgPNkcAHZdjd o3HdXbUb6qyQBiaMknUAwc a3qde6bcmHDrEvk2IOTuHj UrYptaXHmpr4Urx0bmDJGs no5eHAW0vLPqrHdjs3B8eJ LhEEUwwLPlOCAmIY5qsDKr EUBhnV3hfftuMXYhAgNify yeJJPbeHktiaSaJa9lyErf WHP4BWtkE0rhxH6lMbM4YW eqR6hkxR3xBJm1LVkvZVIy yCC5aqV9EDCcyNVzX4XzjE 2iOWGqND2nlsh0k2pcOXQ8 MFtxIDJhFqT2tpB2LMUkaY MrLKOjePinPTutn417MQG2 YqOtSDMlq0KzQ2CpzGqiG1 0clPwqZ64kAWZddXoyuE2i mElwsO8vXkEuWmQnDCpenX jtMW3cDGMxQ4dzkPIhIIFl YOLfQ9zrHyFysC5kcEdbOB xsdaBzDMJcYun3XDQnzJZy BXTfGze7TRDcDUCeM98evn ltAMT5zE2ku6qoe6XcVNlv JJN3ADGqz89sCAjphlW8YD xpBw98IEryGYT0XHsyKDP5 fQ== COMMENT (test code = m6mjzRKlKCTlbBR8UfQfRL 3289) Vyc3wnu0IazIGetLSeZLzl uYZnlaPlzj48iMF3mN83NI 8zDXKdFsW2FBOcdtH5Ank2 NDXwLPZrnEUlN165o1qoe1 elgvIklXB8BBUzVVWvB2Xu SU2uIEXbzQBmJ35djDGzCI I5XWKlDBSiiRWjBDJnUJN1 RBLqqFXqE0erGVHoKA0bek qjWCufAFafQOOlzPJ4GJRh wDZxM3ElBEVlYRtbRUFdvn q4AsUnVe9eaNQlqKvzUBlz YXJkXHBsYWluXGZzMjAgVG zpAUL2gO1pYZzxlw3dwmLg TTIiONLqPTZ8p9WeI88foW AjOOWyALEeg1SmN3vdxXQc WRiduTsaLUw2OEM5gCW4tY j9aJGbb8k7kVEkFZJeSIRy yINebJZodK7pUGK9LVtbYC PdP8MlliQoy6HkHCVlx68e k9z7kYWkQIkde9upwsC7lg L2uPLhz64kuLfsHs73UEhn MN0bQLIhVYNjMXFiABYZuE TteHAxz2BdqSLuhY55l7s8 qE6aQHGzOGZ5jJOaUQUmsL YxZNOtcX5uJKKyRLryrUuo KPTax5TfWTHsMPDkbmZwQW 5oANIcp77eHC8dCLEsMhDk gm3iWGtvb9N8CXSmXL4lJH Q4qV3kWPxfjcFoYYGqiScp kYFmRAwuEQLmHWLvu4T8vS 1nAU7cJMMrNEQjPFIyl3Sc zOomq8Gso40uaJoaSi71YF ojs3NjZ2MinX1nRLOVoIRd STYolaZrXOQ4ErPaNOHyc6 PmnAF9uRWgJO1mjHGcQFOf YmVkZGVkIGluIHRoZSBtYX TaRHX9fWcoxSA8ZUCxM9Hv h2JbgBVoBEAwbUorsKAiHD NvVBOwlFYpWPh3AnJAu5pw nfIyMHQihKYpzdD0iSQrKM l6YUU6gXX5lW0bjWKomL1u gEzrPCSqX79uyZTtMNJaeS DmnTV7YTRyzspom3OteZCm VABlEHIoqzTcjD13i7d2ED 9bokKub2ZyCIy4XAG5aDI0 nGAcc1x0tACwp0SbI9wokR VkIGRpdmVydGljdWxpdGlz FVDzNNK2xI9qja8tEX50XL HvwQwkPJIbuQEqK1HkWSSh xaFxNPG7FFGsJXZycYOgZG WuBVHxKSOlABdooHupul3g fUufuJbuzx5uOMXdxhAbbO cjvkUiaOP9W1F2ekLiWFth tz5gvyFhPX41EwnoIOUmjR FyIFRoZSBtaXNtYXRjaCBy ZXBhaXIgcHJvdGVpbnMgKE 4GBCDlHK7JXAOnWA3EKJLl WZ2zGLTRZlWaRDpetpEtmP 04PQS6EZQcVTGyegU1rIBe iKIzl0UxBwkfySO8ONPxvH 9dkPLvRVVsGKEWBhQwZHH3 YePtH1PoJAnyKNNdqcvnPU JccGFyfQ== SYNOPTIC REPORT (test COLON AND RECTUM: code = 5765) Resection, Including Transanal Disk Excision of Rectal NeoplasmsCOLON AND RECTUM: RESECTION - All Ekhqnhogk5qs Edition - Protocol posted: 03/10/2022 SPECIMEN Procedure: en-bloc resection with sigmoid, rectum, cecum, and terminal ileum Macroscopic Evaluation of Mesorectum: Cannot be determined: Due to mild adhesions with the small bowel and bladder TUMOR Tumor Site: Rectosigmoid Histologic Type: Adenocarcinoma Histologic Grade: G2, moderately differentiated Tumor Size: Cannot be determined: Due to marked adhesion with the small bowel and bladder ~ largest dimention 13 cm grossly Tumor Extent: Invades visceral peritoneum Macroscopic Tumor Perforation: Cannot be determined: Due to adherent small bowel and bladder wall Lymphovascular Invasion: Not identified Perineural Invasion: Not identified Number of Tumor Buds: 2 per 'hotspot' field Tumor [place] Score: Low (0-4) Type of Polyp in which Invasive Carcinoma Arose: None identified Treatment Effect: No known presurgical therapy MARGINS Margin Status for Invasive Carcinoma: All margins negative for invasive carcinoma Closest Margin(s) to Invasive Carcinoma: Proximal Closest Margin(s) to Invasive Carcinoma: Distal Closest Margin(s) to Invasive Carcinoma: Radial (circumferential) or mesenteric: rectosigmoid mesenteric margin Closest Margin(s) to Invasive Carcinoma: Small bowel, proximal and distal Distance from Invasive Carcinoma to Closest Margin: 7.5 cm Distance from Invasive Carcinoma to Radial (Circumferential) Margin: Cannot be determined: Due to marked adhesion to the small bowel cecum and bladder muscle Distance from Invasive Carcinoma to Distal Margin: Distance already reported as closest margin: 7.5 Margin Status for Non-Invasive Tumor: All margins negative for high-grade dysplasia / intramucosal carcinoma and low-grade dysplasia REGIONAL LYMPH NODES Regional Lymph Node Status: : All regional lymph nodes negative for tumor Number of Lymph Nodes Examined: 51 Tumor Deposits: Not identified DISTANT METASTASIS PATHOLOGIC STAGE CLASSIFICATION (pTNM, AJCC 8th Edition) Reporting of pT, pN, and (when applicable) pM categories is based on information available to the pathologist at the time the report is issued. As per the AJCC (Chapter 1, 8th Ed.) it is the managing physician's responsibility to establish the final pathologic stage based upon all pertinent information, including but potentially not limited to this pathology report. pT Category: pT4a pN Category: pN0 ADDITIONAL FINDINGS Additional Findings: Diverticulosis CPT Code(s) (test code n3zhvHSgEWKhdSK1EiDaUX = 3357) Vex2ifd6TrmBFmyVMcQVvh jPSbpsLerb00eOJ5aN64RU 9bAEXjEyY9CPSvocK8Dbl3 QTWxYUPrhKHiH579r2yfz8 almkVwxYI2xWfhFCRxwqne VfG5XHprPKAebhquFDc8QR pcIVJrpYA0PCSxbWIgO9Ds ZQNuVL4hkjm4EIY3VEulRP QiHdI4XXPanZQqOHCtdMvl XMhvf763VJB2QgHzNQFddt OkaKgnxC2sIvMfYIM2JJTo XKM0XTchRQUjLOfoDZD8Aw ujWTAdJUrqWEx7UQdjMQIc NTquKuSraUNbINe3JaHxmW JccGFyXHBhcn0= CLINICAL HISTORY (test x5yanUWiJGWbrKR7JlGiIN code = 3356) Qlc8xfh0LweKAetOZkWBfq hVOywnNeki06iCS4nI17TR 0iGCOyWsV2ICLsdzZ6Lxz7 FSXmIPRufJZzO865s9hkp2 fdstMplTQ8dXkqSFNxtinr VoT3CHqzRNNdyzpwBJq6AZ wjDQZjlSS1SUNwmMAvB0Tu WGVbAX9btov5FNN4ONqeUH PeNcE4ZTEseBMtVSXqkVkh HZiyb217XVE0SgGzZHQsxl ChhXtqcQ8kWcVlESS7WoM1 Rg9rQW3rkPTbn6f2xBBsAL FIKTOmaGpavWSlO7OxsBRu v7KrQRFDOOEwMODIAIQ0Mz OkoTLlHcKaQBBfCJBhq5wt bCBtYXNzIGNhdXNpbmcgcm FdcMEfX2Int1RqdBEdG44w aSRvo8DhoFR3A5Wqx12tZK Bhcn0= SPECIMEN SOURCE (test r7afkGSzNXDaiBI6UwUhLL code = 3377) Wcf1rfs4LjaJCthYTxPWrk pGBimzMout31dYC6cQ52KE 0xJKGtXhB7VJDojzV9Hqm4 ELTnOQFmqBEgM171x4xfe7 oujsJicAS8zJlfMZEczbst FzT3XVplVQGqdtrsXPm3RB iqZYSswCJ6ROEmwNIoY0Js BKGqZH0olvv5QMW3TNjsEV DuQgG5ILMfkXDhOHKxmBlw IWzhe778GOE5OlNzBVKyps ArdQcxdA8mOtLhZRCRWHL8 g8IdQ16fjOIpAYBiFVyaRR Jxs6NhMWPxtSJhMJOjPCUk cn0= GROSS DESCRIPTION (test q6kcoRKhXTCcdBW2NvAlWW code = [id number]) Ssg8daq5PwuSFetUXmBHqt nNZebjYyqi34iXS0jB06QJ 1vNTXoVyT0WOGodcH3Lne3 JMStOVCaxCIlA456l3ecm5 okbbMbiOK2hUooLSHastvy QmQ2PVqgNOBehynfJUl4HI uxMTHiiJQ0QFZgoQWgI8Vn IALiJA9cykt0YLL3CIadYB PuIsC7RQKpyRQxEDPurErd LHmpz387NVV4NmNzJVTymj Y6LUkgGYSiE1DjT3BmLJbj KBN6YOOrUYNuZLWyNSNcPA TmUIeafyG1w8qnUHZlbZCv GUF8GCxfmNOmTVDmFFRaTB cuIdNKUyTcNuZ9ZTJ1KnQy ZkJ8SDs9DKENAiOmQoMnFg C3WTDpIPkqINb6ZIg9MFyP YzF2ObgwWwqnUgsrFAPfZV WgDQa7MPBnYKftoBAxTZWx AFIuBMvzTBzoK46zzXtagD 5cZnMyMCBBLiBCbGFkZGVy LlxwYXJcZnMyMCBUaGUgc3 CpY7aqVF2vpRGbotPmWGv1 KBXbJdDrz9qkLo6oYSYmz1 zqftOeRXY1lI5iHVElWLxi j6UzsfwdnRCrIZatKSP7xP AeHIIqWKKuKIOtCI80UXug NHMgbmFtZSwgTVJOIGFuZC AiYmxhZGRlciIgaXMgYSAy IhUsrMDhXLAoGGHiw9UoKM 35VLJyTPgalATaKOZjZcV8 fSg5TUSksXGaf0DfHExzyT TrQDS3bkLhTLJdfCAbAG9b PZHtMlFmtW2eBWGdOVBpgB Ekr4AjoATucP9gGF3dcqjw NfnzQzRpBNamYW8ufygdjt BpcyBpbmtlZCBibHVlIGFu URV3aUWuu9KyV0bdOZ5ysS Lak1EfnGQbvVkfp1NxhJtf cvW8uuLePCLgWBuabH8pTM 1hcmthYmxlIGZpYnJvdXMg wVwmq2AoOaYrAYnkHHKaMU NpbWVuIGlzIGVudGlyZWx5 NVS9Rx1zrIQyUN2naIVkOK JgepBVYNG1hF0pSVDbCLA4 XHBhciBGUyBBMTogVGlwcy sta4OmsFq5pZPbACIkdRJj aWRlIHVwXHBhciBGUyBBMi 1GUyBBMzogUmVtYWluZGVy MQ7iCXDnRPEelVRoLJYdmj UGE0crXWJqF3VtY1ZvfxOu kHByYALycuOmd8blEIB0NJ NsbXVsdDBcZnMxNlxwYXJ9 y2esNXSkmISkNAD7VFxlxF QgNTEwMDIgXFxkYiBPVlIg UzU1QKB8YaTbWuG9CIu4VP MKFcPfNdWhXmF3RPL7GeUc LGd0RWc0YEhEGdG0IopxBO PrDgvtBPWgBMQkLRi0PMLp XFxmbCBcXGYgQXJpYWwgXF uqF92hKzYpDFTXUzRVTGRy IYRAqxLyh3KicrHgFHZoaQ 9zNW0dP0fxpE0vNH1jhXKx EHVpAqWxG36yOIllWPRohx QyOSn9GMTuRpUpa4whjGKt YIhgAQN3wTFmZANrOUGjCC JhRL60GMgiGVZduzYbKXym bWVkaWNhbCByZWNvcmQgbn EcZmCrKCSnHSSiq3wvlZ2k ZCwgcmVjdHVtLCByaWdodC Dnt7eesaJuyMKtJZ4oAR5q IkseWkUzWTXtN5Peg12tlR 1jwY9fnIHvLVQ5KNFziU6s cLEotXE2uXPrKJOiPLZtjH VsqaBvTR2inLlaVURyWPEo bSBpbiBkaWFtZXRlciksIG MjE0KjLQj1MgExP21ylM2d iCUsN7IzSLEfNTXhYaGbK6 8jgZ4eFUdidWT5XJSbCZQr OIrsk4RjRV3sTR71jA2yYW cvhYAzTUmgUL5kGKReTDha YWRoZXJlZCBkZXRydXNvci MwqUOppQPlJYjpMcK9CNth bEMdZrCwJ22nPQVtXHBhf5 NzaWJsZSBhcHBlbmRpeCBv auHjjJZnusTcD0QcQYVvXu 79TYEaDYhzAQcbuwh0yCSu jxMtEW02QMSzNUyzVLHzPO 1ihECoCG8iKWMmYFUpYRwo BWWsxX3lBKCoqKRcUK7ifN 52BB0mBH7wv9TkwWIeuE7k IFxwYXJccGFyIFRoZSBzZX Hhk0EmoRWtBKuzMkHzOIo7 KAGtjpico2YhHKR7hQOnIH KhbN3oEK13VAHhx4YveXTz IiOrUJupz9cmqxFsVZAJkB Awx6Bjd4XhBT4qRRYcYPIr nYAxwFHdJAanUEKdGzR1i8 ScdMBlUQ1txtFpUFucLh2b ZAQtLUJgPUB7gYQfhqBsWN roomQdGGPmQQDoRPM2BSDd kI8ejGZmzEK1eSCjzgFuyW jfHAExfk0riwFzCElxSZMu PJqzNANniHVoSLMdzI2rvS ziTVCfE90qaPVmK77uk11b NBXFeRQpl0HhP8rdFU7aeZ Ovr4IwwrXnJHBnKLVxseRh eHVjlfEupFjfKNOzzG4tIP cgnSocvv6xENEpTRnfvKoo jfwjZ2CudTqou62qzBArXV 7hf9JhqEKvIWPcx7WcSoUk CJSgSTpmBYDaGYSgEE88LO Apn8ZxdLfzADSmRPRggCNn IJbrFz20FDwtEG3hNIgyMa 8kCOTtTW4yMLMeZMTtBYYf UVfkBZwmFSHjjVEvge2aUU VkGTSkuJJ9OIldnkGugMYc BY2gdtkhploaMSCiKPOlrB Qrcw0sXNFuANFrvc08vT4z mZRueWqxz4npTX7yszzeoo teIp1pSGFhKBHhb90zwExw OTHtim9fpwLpYAguJNOcGL 3cbwtgddekEb80NAQnWRQk v04uaOiwPCIpN5WmXCZzrX 3lMS0dgaxgiawlJF0wCZMj CSXdc16mwXrlJB6vFP38vX 5rfHXvK8rpDBHnrWYqs2Zy aGVzIHRoZSBtZXNlbnRlcm vhME6rrqfqefQoYjS1rVRh vpZmgS3neSjbj9gpZARrxJ 7zODYgrbDrYLI3vHHslIbz SKRein7vWQLjIgH1fBMiq4 szlT7yXXVgp0phuk0eIAgh YXJccGFyIFRoZSBtYXNzIG BzDIRjox71UXrqic4eggPl fUoiTZNmaz9ivoGhXBizWW KwXU3cMBPjJ0VrGY84T71j IU5dNJNmENPfWHVbWIDxKE UfOj6pdFQddxTyFbFdFATz ENeaLYHgTBC1XDzyYE4kDI UgHBI1NSBilU2ehTFdwXF6 jT0uBIuoNI0iw0CkYI0jxm Eos9CnkY97d8p0QLS2mRJv KVY0zqZhw7PslRYhY7gdXa ZdTVrtnuAmVIBpHW91aTRg eGceSTOdffttL8SrmCWusT 9bhSHqk0IgtaEiRT0gbF1x BNJtSr3aUbjnN39iNKYRAV TdhiVaGS2aXVKmYF1rAQVs QFdtv5JluAtkeF8uiJIwju UuICBSZXByZXNlbnRhdGl2 TNCwABL2gW6ousCmsuLwd5 XmsRe8uKWeHmFoT3Iqj6Tn dCdujV8qdeUvaYHpPXNrKX Ddy8RkSnkdGGKhkHWoUDoo inXbd4LiYwvoCBGuHmr2GE nzPNPyQU14MPXtHmTcRCNe vM1um6MsNZMwWL7stO3jNT HpxE5vGDhapOqniR0fKvDy zXo2B3fwyWZhKBZgHJAjEX duzXNpZI84WFBsGhIbGUQn hN4aDVXzpe1rOTVyWiMxAZ V9e0CzB26mqMKxX79yw07f nEHbXN6rOS8fFAI2FB8ak6 KamL4kR7goz8HleWEgQONk d0Xfs1ZlwLrjYKPlQ04bqZ CdS59qx25yhXHpCRtsAEWx SvCOoQAaiIYeCS1mrroqip xwYXIgUHVycGxlOiBPdXRl poWmyODuZOIqLH7iQLD8eP CtaMDhMMVrjIM3b68rBC93 i5SyDNvxTYPnIyFdIfENSC R0cIYqc5EwuAUhupPwRteh XWPrc42rjNHemJ1nVMYii9 8ybWcjOYZylQRhHSPyU8Yv x40yQ53fZPephHAqWQRbPa KGTQLwpM1wqVEbpCH7aALw UGDwiR9fWW1aWJTsV1f2RR JudJ3iLJ4ecfuomqjvRV1t ViGvFRjpIBBnFvI7CEktUW 7fUASsmYH3FFi8BCvnBKIx IkX9PSHayEFgf7WbrLA1nF YpFB9vGD2eER38CAuzoCIs R6pcDJRktjQcLPOdLZNkkw JVJYT6MT2fp1PgnGFxtWTq wANrT8muDV2eCYAuW5TxTO BlbiBmYWNlXHBhciBCNTog OCwmfHMrXANwC5NqcLOhLG CmyY9hFAMzHQQgZ7TxeNOq QYY0LzQRwd38eJ3vhXKooG wcm1zkGSColO6lCK5ladee yrsjFP8ePlFsMBcnOARjWf j5GQ3za9WytA3npZ2zifMo sSCsFUTimSnnf2alMCXbjB 9iPDKlrlXPLAnwKLM5tnVo t7CicFAjJ4ykNYNxBH8pDI 74aT2iqRWfZFX6EXfvHPC7 dhCra7HqbRZlA6ctUYKcEL Vhsm0vjyWiUDmpMAZzSGUz ciBCMTAtQjExOiBGdWxsLX ToqRSfljTulqRwIAD4iV9d OS4fJMQrIZhgSBDny9MnXJ VgNRCdA56buSUsY59nb40x uE6caS1rqMLsAWFvMwAgEK NzXHBhciBCMTItQjEzIDog wCUrpfV3ndBgeU7zPWB7QY YgI6Skr7wziR6xCLGnUDJo aiHjwhlqCQ0zfcgssexziC VycGVuZGljdWxhciBzZWN0 cZ0lh4ysTWVbEiD9HYChIL fqSDTtcsllX2EswQGaRF2t XGZlF7Hnh2fglN1jSPPix0 ibyzfpQFWuKlT1YnYQTAPc WQWgiTsha1noTPKfpG2lOP TcxwZRLKL3AXFxUKulGTs5 HZY7qQH1oQBvo8UsvP0op5 rwtFUkRUFfFY8zwIvfdGKe STFqUL6DYqH7FE0cz7JkrX 7iK8mtf6ByjPVqIAJps6Hf ZTIwR11aeTBaY01yn82jkW PdURBfMnqzKGPblqJlF7Io nVzybBwxfy4sFNSzsEBsEG LnEY5TNwT8XMJdA1Wum5Vb bGOaf4YdtIn0WFUgmT9hjC Jmi0AwWPW8hgymSKU5KERj iDZvTRGjIcmxVKEecj3ej1 r0ABTav1y1zSSxCIl2fXBl FR9fVPYkUVVtkQPjD9ZuEX ezBVMbCpI6VnYxPKwve1Vu vTrvuQ1giHPylqPxeSghhA zuky6iIZcqxVRsc2XepRKm OJIebkVUKxn4LVTjsPzprL jaue7vAJhlPdqgEWA5TBFv jGCmILCdBUrgCDUooW4ouX Beo4DqCYLlzYCbH1WuJEhd YXIgQjMwLUIzMjogMSBseW 5wjJKca9MkXHAtRCJxSLlg dPOtYIZ1yU8bSBGcvBGoEP XuOjldSUYzfN2urABpd0Kh BDCjxOOzflzfSTD0UBUqgF DjGFNvSIitMIGpuG1ywGWx u6GtKYM9biaeQIW3FQDkeA CfBGYeTEnqQVSaiF8enGYt q2FmPBX0oihkFCH5UDNwpL QeHSKfLp3PAQLpTkEhMDl1 iPSoTJ9eXRRnYrilRWV2KA WgpR8cVVRleGPhVWCnGVC7 QEsiOSVsMgQvNlVmVEg2kL IzLP1mUAUsZARzhUYnE5Sn CFhaOWHzKiEbVbQjZUm0lI MfLB8lIVPxBQYhqQRxM1Vm QIhvBOFyKoL9CEG3AAhbAN DotN8rmEQpn3OwNSVikHDp mexsVKN8WCQezBFxKCF8Rr tuUQJurtVzI2AzgMstlAga is1bJQQjtQFdZJH7MdueQV MoejPgO1GlnNcduUhnvf6u VQFuaRJdSWR7BBI8LVJeoI 83MJY4KYh7vFFyOX5cTJOb REKyqtMQTBa9UWXaLDwpKS Fmb7ZuRDHuAMZmA79dvYDx F31nm36lbIYcPAE6ET9UCV Y1QRAcPUtxSJGjd0YiOGOd QBWpB31swIMbH61sl38eAK ZomdVywbWuuYGot0SsvKsc adDykKXyWGA0UngkZ49giI brJt64QFegnM1ac1hawB5t NIIyo0bayfgsNOOxFpA4KY B3QKcpZ9nhdG5jAWFuHJIg YORqZZEdttfak1fpDeJuVQ LazMZwZFMqDBW3CECupA74 FKI8QFt9lHXfZW9dXAAiEE NtfcAQPQzeOvP9KkNJi1Rl aWJsZSBhcHBlbmRpeHtcZX RuH6KnC0UlgzIwyKDeGQWt yzCpi8ccYCA2NIQocWSoxR ZnWeSmUbfbZJZ7d3vvSBDg iRBmAOP0CLkjfQVcRFMjZY NoQWasBfCVOwWgQrZ9OVG3 YlUlPeH4UTh4RFIOMnGtXs NjGmQ9FTDdMgXhZSc3EGq4 CGaXMfP2NkfbQESyQTTvDQ HqPHLpIKh4RPLxCEtgiHYr LKNjSMTcQQvaXJcpD62kYi NaIXVDGqCAeiP4IXMxLIPc D7f4ZktfAQBgOkFjMTHMVH NlaXZlZCBmcmVzaCBsYWJl bGVkIHdpdGggdGhlIHBhdG oudcBsO5E1xuNbTQ6qCVZa PLNyM8TbNQMfQ89pDLCwiE 4uCYWzZK4nVOAedYbjcKZa ZXJpdXJldGVyYWwgdGlzc3 MnMpEbamGbOExfACO4MKFz IPS3QDKdE54nIOshpzUaFR AkCF9jIY78fMBpvDlmCJRs yhaszINfuX41CSQnekD9SU KoEYEteTTxQLMei5K1FOLo cmFnbWVudHMuICBUaGUgc3 HwV1jnBL4eaKEkp9PfjCMz iWtzd2XcmLabfnBeIXSuDF JldmVhbCBhcmVhcyBvZiBm dLKwj6Dczb5tEN1kEWixh6 QnICmox0xyvcRrVNMcUMxk RJ54iTVtCFNxDCMDCYQrKN UofaKqfMk6DLUxWIQ6dW3a xwWoqmAuz3SmxTb6nFSpDK vaUGKzJIL9RgT1GOFhyDWo NHV9LS6xMAYpffitAKXgPE YpHMJ6BUwhdP87eBSmRAZb MTZccGFyfXtcKlxlcGljc2 VjdCBcXGlkIDUxMDAyIFxc TSXeY5BUVKPsRhB1ZYoyXN AvXBf0UXiyK0JRTDAjVGQs NcZ4BxH4ZdZ8YHi2TKIWCo 7qOme0VVCyKSVuTEU3FDPi IFxcdCAyIFxcZmwgXFxmIE OtsJLsATthcuO3HVPwVjLm HT8bO45yw68jVIRafscigw KaIMWlM0MefoPmRZFiKSGq OUvxFkGhVJXxo6b8jOH0wW QarUA6zQJixNnnYnIkMO0l qFSwAJ5sUMnmLCrnyjDxq2 LjJC80gHXokrRdxwPnGxWc dG6gIyGicqLqyoO9hy1bxK DmiFZgJCXcZ25yukXoj4Ui S08lc57fhBApg9PspZ0jMW GkIXDcpULckbXzIN1ehJcp SJ2hOKNcN85jnB4dAOgzoB A4HFNnNDDWdnZwDA2vWLio OOG7SILyLAKsIY9xTAWuRD LdjNBeo8a8JAZlioBcsIFj h5Wwlx0sGXXaJVNcLZtgDH Kdp98uvHmhYD1sbW21SY3z UML2mQNwmBRjMQPjAXVgIZ CrvRZjmHBnLO61WYW9JsDt VGhlIHNwZWNpbWVuIGlzIH XvF3Lwd12wDLK9cwOtOPEm YWwgdGFuLXBpbmssIHNtb2 30zNAnkJKvb4Mjz3p6yITq b8XxZQyyKNQslNj1RYL1xR JlLiAgVGhlIHdhbGwgdGhp J6qiGBNrUMDmfllrfjKySm EhHN28KSXiZtIcWXykwjKn zLLxNOHoOrPoS29xT0EaeW KdwW7okANqf1GzWdLzQoTo raCpYB04FBHeklSxv9UidT ynkbEuLRBaCIM5Ps7zwDTm HX3vuLSdQWOjzqXAHAS2uP 4bZCMvMLC3XEFoujSGCSvu KH61qKDsGU2dXJ4xfAWnV3 luXHBhciBEMjogUmVwcmVz FW58TKTkgiCne6Nls1BudN wcPXYfBZRawL6iNANnHYJd L8FzoLNgOUWiKnTKf3cgvz X6gXTdWLHybEBiQR6dLHS4 YWxsXHBhciBENDogMSBpbn DkS8QroDjanMmhno0uVDsn YXJccGFyIENoZWxzZWEgR3 GfbH1gWZ0BFxxvXQSbAIHO Y9GhV896JHLbuLAwIEC6UW 5vpEpnCOJpT3GzR1SeuyU1 XHBhcn0= INTRAOPERATIVE k4kswBAyWWPrqNI6BaKzTA CONSULTATION (test code Fqt2wzm6AsjZDxeRIhZWcm = [id number]) xDIouxRqsp91kBH5uB84PQ 3gTUNzVjJ7DYPipxG6Uih4 YBDtIXKqdZZmN827v7ski7 toihQnjPP6uFhlBLTiudqk HrE9NFdwJHMjevfiQMh2VU skBFZpaQM4CCUotFYuT7Zk QYVwPF9kkvr4NJK6RAhjBM ScPaY5AAIahISuRYXguYez FInsc529IXD3FbLkZNVuep G9SKwyACDvJ5ZhN4AfGJve NRZ9NQTkXNGgZCSlKCNaIR DwZUtcedT1b1zwVUDmkQSo CRA6EVmezQCpCPFjPFGuIQ fzFyDLCbXyZfO1FEE6SwVy TjU4LDt0NPYZAiHoHgIoZv O3FFUdQGknIJt0HUh5XKdT ApW1MnytSpYvLTJsSTNfLI WeNFg1GAHlBJndlDJbIMZk BZHvCMsoIMmoZ33fzLqmfP 5cZnMyMCBBLiBCbGFkZGVy LlxwYXJcZnMyMCBCTEFERE PDBF5NXrdMLarddBEvSB5K MJWRM39CW7JWQEOWOWWLV8 VHUKRKFABGHPFRPv1FQVWb ZT7WBXGFSUVXDS7YPRZbpk DvPnWSVDMBYpBkEa9ZVB9H OvuBMPUmP2XSZ5eCQ83FYI StzydxCZTxJfJqx5Q2DQSn CnxlQKTcFQDodyKgEB6bJU AiEsGUb7pbaP6kJJOvCVyk FsEjpC4yFZVaJEBeSyIrCw quVGIpBVA4XM42CMGenOTu FNY8VH3iyZkjATShS7PaF2 ImasF9EULyyl1= Gross assessment was [facility] performed at ([facility], = 2777) Department of Pathology, [address] [place] [id number], Technical component was [facility] performed at ([facility], = [phone]) Department of Pathology, [address] [place] [id number], Professional component [facility] was performed at ([facility], code = 2779) Department of Pathology, [address] [place] [address], [place] [address], [id number] 12:08:44 Test Item Value Reference Range Interpretation Comments Case Report (test code Surgical Pathology = 104) Report Case: [id number] Authorizing Provider: Matt Ahumada MD Collected: 11/04/2022 11:02 AM Ordering Location: [facility] Received: 11/04/2022 11:06 AM SERVICES Pathologist: Ruby Cole MD Specimens: A) - Bladder, Bladder Margin B) - Large Intestine, Colon - Sigmoid C) - Ureter, Right, right asaf-ureteral tissue D) - colon, Proximal Margin DIAGNOSIS (test code = [id number]) FuZzEwMzNcZnRuYmpcdWMx IHtccnRmMVxlcGljOTYwMl mujzFcNDZpdZMpX2Eycitb MRaaXE6kNI0ikYcwnTZxjW RkSTIdIsUni2abp745cMHq s7zfIYEFkrfzvOf6mOlgV8 9jw0Z9SyjbP31snLCkLBB8 BUZxZIGdlSRcARCyUUH1HQ XwrBGvR9tqNSVxHA9dvrsm LVtyXTihYAHyxLD2RPByiS PhN8BnMXUzDYmdBASlnnb3 UxMsIq5lyLKihYiyDHrhLL FxTEUaBXoxGHNmZlSmIA8e CudDMSBHZnreEVNVR9gLTX XAVOYDJ4qQMmdxZUGteaTc XL5mDfpdun7isSZhvKltcd U1rXGxgKVny8f6rQRujABb nlocLBfiAjazfX5liLbjsl 6euWMaQTPpVWQNJLpgrQt1 OOBfb0TuP7KoJ4tro12qFP RknjwmMEGkBr6pS86VX21x BMLLU5TCOFRNXOqVZ4yUED BBTkQgUkVDVFVNLCBBTkQg OHSLPTcFPFujDExVHU7qYT PCYEFGP3ZmSpITBMAVLK6P OlxwYXIgICAtIEludmFzaX UqAGQmZS3pT2XkN2qwm84z ME5tTSYdGFMyMMH1q8IpV0 5cxJHuX19rj83jYW9uQPPk AIGwsXbeKSpoPfAnDT55nL L6YGTwWVidSNDzAZNfWJWk clxmaTcyMCAtIDEzIGNtIG voHXicLWQ4OWP5EEAwbLZo s9rfbdKwiu8wo3o7NTLdEF ImM91woPSkmUtmXMGmXJIW tlAqRKGkKNDuMFH4uAFaUT TfjQWmAUTkvX8eGQDdZLYi axBfUY0dG7Y1zZVpRRMoxf QjxA7nxA88NZDzvUmtnnKa pmStpYGqcW3xnBRlfSQqld Bgv2avls6dsASkIN9mQPyp GJ8vzozpspUxDKMbOSjwYK Qkj0BpGPClc1srgDLzSYVi XWGllYG4OWwuDLQoW9Uvp9 yhwM1kQZHifm18kP9yaHUb bmQgZGlzdGFsIGFuZCBvbW NzySMrZW0jjqsmftPruoTq MEPhbaMmLv7jPFxaygAzoN UcPBPdceLgro5yJIFljdBd aCpeHQduJQBxPIV2i3TqVA NpYVxwYXJcZmkwICAgLSA1 DLSpkB9qiBZhy8Nfgmisfo JtXDDukuEfBo3bNP2yrQkj fnHlS9hoFIFsYSXeIPPmap ZrDK8ZHYP9n8LsI94hrNCm wPYqg2Dqq2k7cHHqdHFsye DiK3Acd0VjyvQ6iMSjAOVw nerby0mlsgjdYMWvw5Npl5 DcpX99s2a1kK6sHJZlU5Td EPCrok6qHKxaKcqbXLWyer T6SYbmRBEcwMcyd8adSWBt fu0hEIezVTYaVDUoONehKT ApAG14V98bWBD7pHFrPF5x UPHjW41wMmzaSG02COPwnK otfT1ivNTcJPHkq2DrZJnj dHlccGFyICAgLSBDZWNhbC Gbl7tcwsIkaRDij8Xgy8m8 uLKfqeJrnFyqvNLbC0PwuZ HzwXI5q0LesRciuN2rbOIb HMVuw0MyTSphnYyxUQAdrf lfPDCqQg7kP33IEJEDNRYU CFLzJQHAZ5tYMNZDOnzQKo KLEBPSSTmdWCaJSKTXW129 WXWykuKyRB6aLqbabj0gmN PviIcpwqH9iYHelFWaa4k4 aCBjaHJvbmljIGluZmxhbW 1hdGlvblxwYXIgICAtIFRy FG0eYRG2GCZwW5Cagw4jyE ljIGNvcmQgaWRlbnRpZmll CG7dsEMhGUWlvlRENvMSK8 xPTiwgUFJPWElNQUwgTUFS W9gFBAGCXTMGM5xRPiagiE PjCXTzFJUAq1tqstbzHH91 X02fHLG3vKEtEK7xMIUwX7 4kVlufMV00NXwrp8NxwWS7 kR8ua2nkQyOlWb7dvm6joV n3wX7xyYOsOWIfANYpXPLb eeymonQyJFEfeAl3NKUztM 1tpKMeZX9kEFGomXHtQBGn tmtdOPScheLqWC5jVNXLYU 1FG0xLNdDMXQ8LSzBGMTME DVeezXV1PINPEMGIgEOqFW bNArJ6XObkMLVZSYpJRcqv cGFyXHBhcmRcYjBccGFyXH JpxiquLGY3v5obcTDvYGOa dGUxODAwMFxhbnNpXGRlZm xxlbacEVKaFBZ5zgXpNGQc WCxfGLFdXWrmIv3fnOTdrG zdIcIdCTFxb2tnlfYIbwrc wIu6h0lwTGWoBvN3xSWlAJ oqF8eyguGenMHcYMIyBDi9 cJ94XLOzpD2eiGPfCMignr FrRvD1KOzlLFQfOwT6ROIf rBYaFJFfP3arCWTuNXsdFA ErRRwyzMVbUZK2wGgrm8V0 bGVzaGVldHtcZjBcZnMyMi CEj6HtRNg2sIboQ1ZfZZYl WbE8dYBoNMYsIYpeUPSoSY KoolX1uI49RUkbtfH0nRWu b5Rzr05gf381wJ8wdQIeKD Y5ETZpAFLpmCNbJDKgWPC8 AMLuuJDlM4qoDPBuKW5asz loZAvsXQizBCKqdPR1QESf zPVxP9MoQSTuLDzwRSFopc o5FbWjPf1qpZLbhBatWQrt k9kiq8wanACnIfd9CPEgMx BrSzpwHTwuy4Nls7rmCZHu gv9vXST8pXDsbXvnu3U8mQ NgZQNhaMUyBTLfXI7hdCOl HRTqfB9zvesaRRDgNlNtrr rmDDSqcAcbgkYvHa1jxGpo YFM1SGdnH9pqtV8mLxX5AN agF2tekH8gEYg2EHrpNHKt gWO5qvP8ZKQmbCUuZ9KxvO 1pUFJeQI5xxqu7p2ouSMH3 HWlaTWFoNhQ8vtD0WRRlkV SmZXKhuKfiEVxgy530HNV3 VnDqBNOnn7LzZ0VkaGsmS0 8htHkdZ91hDNGhzPkysK6n rNtayC1gJxPiGgMaMIlnbD yhWT0qTHBgB2ytxQTzDFTh EXZlS1hfJbNtwC0gkWwnEC trjuVrPWMhZiq8UUYzlGFi KFQjRvt5TVVlVYXlB71eck sdFVJ6sP3ui3orx9OqKIiq MHU9JGOqd60qTLzqjfH3VG izOc12VSzsWZC0KRjdYPN4 fQ== COMMENT (test code = u4amvOBgDYEegPO3KgLeOF 7541) Eqb1anz1LivEWytFPvFWkp eHPlhnDxsz52cAI9vZ34JG 6zFVElVoD9BGCaipF7Bpc9 SJAvXZXhsHCaJ941w4aok2 ievhGbbXW7XDYbYGQbO2Qh OU2uVRSeiXTqH23scXAbJD P0DZCtZKKyuXHoBKMbSQW5 WSZgkKSsT3geCALcUM6fku ysGHpnVRcxLUJzfZC8UEZw bHPiO1DdVOOsUXotAGIsez x9HhHzCm5ndSYotXelOOrd YXJkXHBsYWluXGZzMjAgVG iuBYD7eR8pSGoggz7qquDz NAHsUMGzABC3m7NqV37tdX OhZWXcIEYjg6HjW5gbqOXp VJsolRwzPCf0KGI5xXI7nK h1yBXej0s4pVAiQSGcSTMg gBQddQUauI3vOVC6PPetGS BsQ9GitqDmr2CwDXNtc26c x5w3mGVrDBtfu6cjrrK0hk N9iHSgw87tkEeyXl46WWet VU2bFTBhYKWrMOSoKBKFiC TvqERtf4AbmUOcqD07k9d8 qP4bHQRuBOW1wPPjAQYioM KeLCNryM0lTASqHRfcyCwp TVBne6AqHKHmJLMcnwEuWV 5mMWYnx11qDX5kNCWtPlOs jq6cLUdoe9U4XQReCO3gTH S1xD3sKSmdbiPnUPRvpAqe jIQaZKvlDYXvSWMer7M5kP 3jOS3tBZFxXSPjAUGzb6Fx qMjrt2Keq36lmMkiBr50QY mci2VxM8AdkR6iQCDGrEKn ZJDokuRvPNL4WgNzJULls4 PuePZ1kBPvXP1gkPThZEIh YmVkZGVkIGluIHRoZSBtYX FmSAZ7fAzesNB8FWWoP2Eq i4EywVEfKKMhpWkiyRPlEE RoGWVlwKInPBi5UfDLb9yc mbVzCOAgbNPsigH4zDEfSC k2YFQ1lSO2uL9reIHboI8x dWhvXDMfE17anBBvGYEpsO DvnSQ4MLNyntjms9JbsVXe YWWrNGIbltNynO71e5a7LI 6yoeKrj7TsJTl6CIZ2zMD6 mTCcg0d9mSPvu0OoV6nsqI VkIGRpdmVydGljdWxpdGlz XKIdAMM7eQ7awz8uKR46MV TglIxiHUUplTXlV8ZsQEVf xqImJAS5MUUsPHTqhKDeHQ OpLAKyNCCyFNlxkLngnd9g gJavpXrzlm3hVKSpvwWmhZ gvatFekKP6F7L1iaTrEEqb uq3ivoRbPR96NxamJXKkuO FyIFRoZSBtaXNtYXRjaCBy ZXBhaXIgcHJvdGVpbnMgKE 1NNPFcMB9ASFIfSF2YASXk AM9qUCETFqLwDVamedCxvD 24HEE2PXVpEPDuciM9uKGz tYWky4VaIqevyBG0KCTauM 1daSNqSKIbVIBSAhVkVFW7 AvSpA4JpFBnyAOOllghvKY JccGFyfQ== SYNOPTIC REPORT (test COLON AND RECTUM: code = 5765) Resection, Including Transanal Disk Excision of Rectal NeoplasmsCOLON AND RECTUM: RESECTION - All Uknozramv2nc Edition - Protocol posted: 03/10/2022 SPECIMEN Procedure: en-bloc resection with sigmoid, rectum, cecum, and terminal ileum Macroscopic Evaluation of Mesorectum: Cannot be determined: Due to mild adhesions with the small bowel and bladder TUMOR Tumor Site: Rectosigmoid Histologic Type: Adenocarcinoma Histologic Grade: G2, moderately differentiated Tumor Size: Cannot be determined: Due to marked adhesion with the small bowel and bladder ~ largest dimention 13 cm grossly Tumor Extent: Invades visceral peritoneum Macroscopic Tumor Perforation: Cannot be determined: Due to adherent small bowel and bladder wall Lymphovascular Invasion: Not identified Perineural Invasion: Not identified Number of Tumor Buds: 2 per 'hotspot' field Tumor [place] Score: Low (0-4) Type of Polyp in which Invasive Carcinoma Arose: None identified Treatment Effect: No known presurgical therapy MARGINS Margin Status for Invasive Carcinoma: All margins negative for invasive carcinoma Closest Margin(s) to Invasive Carcinoma: Proximal Closest Margin(s) to Invasive Carcinoma: Distal Closest Margin(s) to Invasive Carcinoma: Radial (circumferential) or mesenteric: rectosigmoid mesenteric margin Closest Margin(s) to Invasive Carcinoma: Small bowel, proximal and distal Distance from Invasive Carcinoma to Closest Margin: 7.5 cm Distance from Invasive Carcinoma to Radial (Circumferential) Margin: Cannot be determined: Due to marked adhesion to the small bowel cecum and bladder muscle Distance from Invasive Carcinoma to Distal Margin: Distance already reported as closest margin: 7.5 Margin Status for Non-Invasive Tumor: All margins negative for high-grade dysplasia / intramucosal carcinoma and low-grade dysplasia REGIONAL LYMPH NODES Regional Lymph Node Status: : All regional lymph nodes negative for tumor Number of Lymph Nodes Examined: 51 Tumor Deposits: Not identified DISTANT METASTASIS PATHOLOGIC STAGE CLASSIFICATION (pTNM, AJCC 8th Edition) Reporting of pT, pN, and (when applicable) pM categories is based on information available to the pathologist at the time the report is issued. As per the AJCC (Chapter 1, 8th Ed.) it is the managing physician's responsibility to establish the final pathologic stage based upon all pertinent information, including but potentially not limited to this pathology report. pT Category: pT4a pN Category: pN0 ADDITIONAL FINDINGS Additional Findings: Diverticulosis CPT Code(s) (test code [id number] = 3357) Mit9gbq7HmbTTlgTImRCdu eUKruaEdzo10jFF0wZ23MM 8pYOAkNuL3RGUkevK9Vcz9 WREcNGTeyYPdB707f1gmu4 kyqoKjqTC6pCezNMQurxzj GaE8KRraZUEbmocoHAs7LT ooEPFbbLB7HKUgnYFqF9Cd IIZuCA1nhcs0PZJ6IDigLQ YaNlN6SVRzvYJnOUTyoUmz EVqbn178CEH6WaEhOBJjvc LyjHchmH5wDeQzICR3TOJy UCE5BDxiYIJdJNnwOTE4Sp kfFDDrPJksHGe0HBszEMFk SByrNqOohUIrQUi9SkMhuL JccGFyXHBhcn0= CLINICAL HISTORY (test r4vuuAIxDGXwwTH5FlHeJK code = 3356) Lgj0rkn1YmxKLgxNHuKBdk pWTqliXwrw45hHD8pW87DN 3fLHZsMhX1GSVayaM4Vdb9 EGAiJZYflGBbE702i0iwn3 qqfbCxeIG9lIvpMGDjiurt QdE8TBfhEKTqeltwSCu2RT zdPUSjdTK9DENjwJJgI6Ln JFEcMP7ylmk4ENR6PQdfEO IwPgC1CMQtvPVfCFPqdDgv YCulu552RNB5NqYpFRWpnc VuePafzW0cKbRbPPR6JaF0 Kn1fDC7wlZMyd3w2vPBmVE LHIEUrjQopzFHtI8WpqRXb w0BuVKJIAEMnTMQLKBT7Yn SsoDQgVkWsDQFbSNAqb2dl bCBtYXNzIGNhdXNpbmcgcm CpnERfZ3Zje4ZfhLPpJ08l yDZkq9GvwYH6C5Fcd82zKU Bhcn0= SPECIMEN SOURCE (test n9fxsYHhZRPkgAP1ZxKbJB code = 3377) Lfn7sre7PaqCZysDAmUPpu qYAzhdZsnn24tVV1sI49NG 2cXDZxTmB8VOYqygA6Rov8 ZQGkFMBrhEDpN431t6pcs6 cmbsEqtKT4yVhhGYPscwqa LoB3FXapDXTnpioaCOj2UW ouMDKjwFU1OQNmfAXmT6Jw UGOqMG5mthd6KYA9YZubHT SeIyN8ZUOcqUBiDTRrqMlv HDpfz103RCT6BnKgJUTbtd ZkyIwviL0kXjAjRUAQCON2 i6HdS15kaPZlTPPxSJaoGI Njw7NuDVCuaWAnAKHxMBJk cn0= GROSS DESCRIPTION (test g6vynYLtECGpdXV8VhMjTO code = [id number]) Qrb0vda6MmrCKnsTIcIVcu yUWomiYfzg99uOY0jW56KS 8yVXBaKjB4YGXfqzD1Ysj7 YKMyFMIitEFqT575g8qki8 smqeHmjRA8yMcnCTRfqxrm TcH4DDepBYBntdqvZKp8JL ciRIQsiKC4UVKunCYyK1Zj WEAlGW4zfeu6SJS4VEsgMK WeBtS3YECziEFiSEPrnPgp FHlnv861YUC8SaJtUQQlyr X1VZldMVWrM6VvP7NeFLvi DUD1TUJjLPMyTMKfIWQwVW UvHJfacyS7b5onOIUpgJYk KRE9WKhxoCWaBYIxLUTbBQ mkZsDDZcTgXuM8LOZ6OcUm XtH8UAp5OFCZOuVtErOjFi X5TBYkYGcrIGv2XNi3MGoO YrR8KgaeZyaiTjauOTRqDK JbOIf7SQDxNVxhsHRkDLYm KYWkQXfwUHvqE84mmJkfyI 5cZnMyMCBBLiBCbGFkZGVy LlxwYXJcZnMyMCBUaGUgc3 QvA1uzTP3csEXcihIeZZn5 YVZaBoOjf9rpIq5yCTJdb8 fnbzRiMCM7hC5sVXVmXNvw o7EvtweqcXFgIGgvDBU7sV SnCLOiZKTuHTMtPR43YKbc NHMgbmFtZSwgTVJOIGFuZC AiYmxhZGRlciIgaXMgYSAy DpZwlBArYBBkNMKzo7HuII 03MFMmQBrskSEzVNUpXnB0 tRn8XKOjtWVch1NhIUwieA PqQJA9giPxHXRujQIaNQ3z HHXcFdIaiJ8oYBVlSQUupT Hsj9CalMBbpK5lEV8mponq LvwqBrElKFcxXV0jrcbvgt BpcyBpbmtlZCBibHVlIGFu TNA5vOEiy1AsN8syLB0hzX Hgg8YlePPihNgjj4NrhUpj abM5zsVuGSGiIYsvgU6pIY 1hcmthYmxlIGZpYnJvdXMg wUppr3MtCjYsPNhsKQNiDF NpbWVuIGlzIGVudGlyZWx5 LWP1Ui3joOAuDO7niUBxTV VzlwLVFEK5wV9jHSWyHTR5 XHBhciBGUyBBMTogVGlwcy ddd9FszZp1sROcXFAerWTq aWRlIHVwXHBhciBGUyBBMi 1GUyBBMzogUmVtYWluZGVy CS9eIJDiVMEplTSgYEDrkj WPS1fjKLAxI4NaQ5DqzzVm nJMrWTBnzuExl5ogAYX3UK NsbXVsdDBcZnMxNlxwYXJ9 s2vfXDKwiFWdRYQ0SWxkhC QgNTEwMDIgXFxkYiBPVlIg GgF8JIX5UrKpGjL9YHa7BR KXWdWfVbSyQyH4AFL8GgAu IUh2IRo6OLrSJqC1TxcyUW ZvIvxsINIqYJSoEDb5XXIj XFxmbCBcXGYgQXJpYWwgXF wiJ87xBnSuBSIYFnKCZGAq XDHSzwPan4OtqiFiSSQrhM 7sSK8cD1ylyL3rJV6riUHi BIJqYgTiN35uDYtmZDGudn CpXUk7MDOfNxNhs8wwdCKg SImxHBP2xJBaUJJbXBOhLU MbSH52RJykAEYefzThXZqx bWVkaWNhbCByZWNvcmQgbn HyHyXoRUNvUNFfi6uqoS6v ZCwgcmVjdHVtLCByaWdodC Igb9gdbqVbkRUkHZ7yBM0d EdbhZdPsLLJuL1Hvf50qzX 1lzJ9mdZTnLQF5YUXvsT9n iBTwrCK1eNWfWMQiOXAbzT OhcoOyOX3qzRkoOCUdSUWj bSBpbiBkaWFtZXRlciksIG StG4EpKOq6LeRjF10quJ3f vBDgU3BgEXWoQVPoXtUhR4 2upD9kRGgmuDW0IEMxHKIg BWtfj3DmQA6kIH35qH5wQJ dsnEImNCjaYM5vMCLmIAmv YWRoZXJlZCBkZXRydXNvci CtoYEyyGLpYVdjMtM4UMmk mVHgJxJnZ09pSGJnDKJev3 NzaWJsZSBhcHBlbmRpeCBv btEraUZwrgXlX5VpYBFvRz 06ARMaWFglIBdombu4mYTa xuHrZM76DMOpYJmpRVOaIE 0crOQnCJ0nSIFwKHYuQNlc TCTunV0hRUJpmUNaXR8xsP 48IQ0rVE7ht9MlbGIqxV5k IFxwYXJccGFyIFRoZSBzZX Gox8JjtMIkKJivTrNfOFo6 YLWswqlvk3WrZOJ0fLVxWF UiiY6gIN33UQUzf3PreJRh HgJwEQxwg1qmtaEgSUQUpT Vae7Edq6NbPS3pKQTdPXJk zLEtuLWrTXgcBFZrWtD2w9 WkrIEnVD8nhlVyFDrcEp9t GFJjJTXrGVR4oEEzsfCkXQ yjmlCdTFFeMEHzLPO5NSGq oZ8lxLOowHL0gKQhsgEroG pgIWVclx2cufQaAXukXYJo ZKroBEZbyOWhHSFwnK4bdQ grPYHrF27vyCIpZ64qu38d XVBEeJYee6TiG8zzUF7gxM Lno0BkbxJkNXTbKCUtdhOa hEEzmaYmcRcjJKRkhD0gXT wzqUjsup9yPMNlBIykfKnt dadiA9UdrMosk01fuFEqFL 9na7UtjOHzUXNns7OlZrBl PZIoCRvgAEOuJQAqGB93QA Gis2WmaJloABXbIBJbuALz BIcoUv71ZDjhGM2qICnlSs 9bQXVvZR5lYRZvOGXmUIZl SIhpUGorYTDmaRGxqk4rOI OyXIPrxRZ3YSlipgUzkVDu FG2bwxxcnfbeWNRsYONtdG Ucxg8tPJGsKDRnhc79jX4x iMPrzCsmn2uvKX9okxwngl erFh1eCLHlBQAml57ixFgi FNQxws4vtsBnLGsgCWSrTH 3yahegtpbmUt51KXHfGKRk t70ckJgdRRVfB9GyWQBekX 5iTI8gobfqwxjmXI5iVEQj IDEyh45vhOfdFN2nZU37fC 1akPDwL2ohETDofGDki0Ky aGVzIHRoZSBtZXNlbnRlcm ayJK6uidkqneBvElX1hOHp vwMftM7vgRblg1ivPGOnpJ 0dRJVdigObACN8yGLhqKxu HWYyfl0yUVTgScG9zYLqp2 igjT5sOSFjo6ayyg6dFKlr YXJccGFyIFRoZSBtYXNzIG DlTGHxqm81DLcptw3uzzCv fMmyMAChqc8qhhCxHLdzIK XjNZ6xRVRxQ2XcWL28H34r NI0uPXBaDCGiIRVxBHNaCV WzKg7hbVFnefEnWpVmVILp WGsaXWNsXGF1KRfqGZ8hXB DgZSV3IVQniO2zhKRqbVY3 wO7cITrfWD4pr4HnIP1yco Rot8UcoE82k4r3BMC2dFHx WQT9phNuh7FquUXaD8asBo TjPTnrtpVlHJLyJY04fQRz jNfeXFHpelgsV6ZuyCSadO 5ktKCzk5NyevEpGF4tqP6w DKQzQv6pQovuU07mWEGLFP KxfgIwRO1fCZAwHD8vWKEl PGfst9UmmSlgtQ9doGPlhf UuICBSZXByZXNlbnRhdGl2 UZDzCTM4lP6uemSzduQpu9 RpbVi5uQYfCmYmO7Gug4Ko aFnywB8sfdHgmTUnMJXsRK Cju5ElIzxqVQKucNUcXMoo weIey6TxLtvpARKfTkl6UZ zqVDCpOC67CTNsZcDgIRXf dR2xi1RbDUKoQL6zqW1yJO XybW0cQHhqaNpthM6tBiIt rGp4C3eneJDbLEEvQOBlYG jcsDWpYM81OIYmXhXlANIy xW5jPMVjge7cRIBsKdNfDK S2z9PwF82bcWQbZ03gr59s wZCfFC9kNR3zATA7BC9vv0 DlwB8hU3qrp3CfsGZrCWQg a0Ndm4EeeFzmNFXaD43ayA EwI02rb30xgWRiHQpzPLUb AhMUqLFbxUPiLG6aucskpl xwYXIgUHVycGxlOiBPdXRl uhEaaDQsVDAjGK6gSXF5mF WurNAdLPHdzLC8p66hNW49 g9BoLRjgCRUwXqSnAnIIYY T2zQNzs0RtoEGzjdYpKprw KOSkh09wlJFkxD9hGXEbh4 3puVheFXXcvODjNGZpM8Uw g09dL94sJUsfyQNvIBGtHj GEUDVruY5osACxbKU4jOHr CSPghM9lPG2oMYXpN5u4WY ZyzH5pUD1auwxmmjckWH3g TwDoYXnzICLiBvN3OTmxPU 5mBPIkxYQ8UTf4JLneWYRc IzE7AOWriGOcf9XniQM1gI CeIK4rQM1gWC26GOeqdFBg X1unQIIgoeIaVKEkJZBbyp KMIZQ0ZU5bk3XnnVWetLNd aEPqK2hlTU8yIBNuW3EsNZ BlbiBmYWNlXHBhciBCNTog SAstdDKnBDDgZ6UohQKqHX QxjX2iMIXwVEUrT6XnaUXa YZM7XlKVvy08cA2poKGbaO urs7ffWFKxaN2xHD4qwfpd provTL7kEfVyCWipXZUxGh t3TT6qm1KzmN1ljB7gtkFa xBCcVJZkdCkao0ytFCZzeM 3rYBUjnwOOAIwzPSU8ysGm m2EejEBnV8mlWKCaGE6vXN 19zK0dcTZaNMJ5KIxxHDV9 mzLrs4MihCChG2yfKYBkSM Xsrq5bqbAbJUzmWXAvJXVu ciBCMTAtQjExOiBGdWxsLX KppPHfypGdvrIzOBI6uX4m EW9nNAWlVYzhOBYop9RgOX BaNJOqY49llOIpH45lm41i dF2jhO0lkLHrGKFtRaIhFL NzXHBhciBCMTItQjEzIDog cLHesoG0dfTdqB0kVKY8QH AoA2Qkw6qnrN2vJYKaAHWf sgZrvhftUG0qeillxhngiC VycGVuZGljdWxhciBzZWN0 vI4eg8klWSAkNkJ8TWFdDU rlYWKnecdrY2IqdCEfSV8f TOSpU4Wfj1ckpB7mLTKqs4 ltbbwvNLFvCaB8RqSHAEHh WFYkmDtri0cmHWTdpP5iRU FcbmYYBWG4KUNxZPgfNCq7 BOA1oOF4vFPmk5WfiG1sq3 yyqVXxKESrGL4jhKmjoOOn JDWzJA7VQtH0ZP7kj2CqsV 8qY8phg3YxyTZxBOZlw4Tj XCOrF13buFTvV86mj73blG ZnMLUvJmabLHBowrQoF3It wSlexEqnop7eURFtmQOxTA QnHS6ZNuK8MAWfK9Vro7Dq jDZbg1OrkDt5ZVUcjC1laS Nyo7FzXSS3mzxkGOT3XGCc eLOjOZOnDxykXKZrxp4dj2 r5PAKhv0r2qUWjGKd5eHMa HS1fYRZqXVJupOEoJ4SnKK xiRHGfBbF5FgHzCZnxi3Eg uGnjrF0geWWfhmZpwXzzrG ebus5tYGtmiUFla7WrfQBy JOTspnQWXkg2CPHjwYbkeN ojmx0sZVgvBtwfMPL7XHAw tRHqZJZlWSdqAGXzfG9hdU Tdv0NzAXYzlMQvQ9ViALut YXIgQjMwLUIzMjogMSBseW 9dyPGdh4GkNALfWCRsJFdx eTKsNSR9dP0dEIFdvMInIJ YqTiyvXXWhuJ7etMCkh3Jx JBNohVByuhcrEJU8MZBbxO NhZNQzRUdqIKBrzU0dyRTl c0WwYJK9wqugFVB4IJRuxD QvVFFgLVhhRNEawR0xdJPw z4LpBKN0mtviUFW2COGofC WoYYLvDq2KHOLdViAbCMz3 uOVqHY9iTYQmWtexOHH8BV NuhQ0uSGYvqCEzGXYjATO6 LIrrLJBlMeKxWhNrCPi4hO AmBM3aNFGbZLAllDRoN7Ow MVofHECkZbYsDjZkEHo4qM NjER8cQHLtPGIyaPIlX5Cx NMjeHMDxRrX8EEE4QRheYI JsiA0wkOLyk1OuBOZkmBAf ftyoPDH8QHDwtCDrHQG9Gk fdUOWtagKaZ9HvqQhbiNvc ya1lCDOmjVXvTXP5InprOB EhozQoC3CzlUagyFndaf6x OQRlaDQfPHR2AIO3OTVkmC 74FIB3PKd8pTUtJT1aIJUe IHPyzeTEFEy2YMZjMOvhKN Eep3JaXWQuRMRtH20vyTYz V70jn28jxBXaDKH8ZH0JDQ L6CATaFYarTMYhy2UdXJFe OJYhC11tjIIdY24hm36dGT HljhXdnbWpfDMko2PicSwz euApyVEhEKU6EblaM04yyN fyIp41WAknpQ8jq7egxX3e CHUcu6aorppfITLfAzL7BE F2XLvwB2msqS5qMAZhDMJy RDGvSUYtsfnds5jfNcKiGI YjdMQyXQAtGFR9PPVziG55 TBZ4KSu3zSVsGB6eVMZsKA VjtdXPFWaxTxM1YhEDw4Cs aWJsZSBhcHBlbmRpeHtcZX JuC9ItV8TcaxZezHNnPWAc swTpk8ilDMP4ZHXvqGTboE HeMnJmEyelMBX7u3bmEDKf uLYmPUD7KYlxsOPlILCrTD PjHEygHuTFRwLrXxY5FVL1 LqNxVvK5LEj4JJIYVkHkVg IcXzW5WNJpGzHiJSd9JZi1 PFlGOlX3PufuWBHmHWOzNJ YeJXBkAXp6FSGqJBhojRLi YWJgJMQkCSpsCWrkJ09uAf CcKCLQIsTFtrK6BTTmYGKx O2e5TmtfSXOzPfFkLAOVCB NlaXZlZCBmcmVzaCBsYWJl bGVkIHdpdGggdGhlIHBhdG wplfLyS9Z1quMgEJ1oIPAt NDNbZ0GxZGMgK56nZKRhpS 4xXPSkOZ5aTBCscCqmuWBs ZXJpdXJldGVyYWwgdGlzc3 UyIlWgxbCvWPvrMMN2RXBk UDB5HROgM87sBCawdkHuGG EdTF9eZB20lFLiwBtgFXWh lbbocCWiiR64JBNuywH1KI DbAADczTOtRKDen1D9FYXd cmFnbWVudHMuICBUaGUgc3 BbN6piQA2koDRce8BhoAYf rYwxz3LzwUfmewKgODYuPB JldmVhbCBhcmVhcyBvZiBm bBHxl9Rhni5oEH8tUTxhc1 UwAMkfr5cwadZgCCJcYVnv PN33uSQsBUIaXSJPBUJaZP PgljZszAv0VGVeHXA4gK2b tvWejoStt0ZjxWu5nFRlQU mpLDSeXND7NoP7VARyuDYl VZO8SN4eFUZnbewdACGwOC QsUYS3ZLppzB83eOQfPEQu MTZccGFyfXtcKlxlcGljc2 VjdCBcXGlkIDUxMDAyIFxc TULzT8ZVYOFeDkD8PKxnOW OdKTi5DYdlR0RZTYKaRVFz PmF2NqB3UfW5GKh2LDCSTy 8wKgz7KSWlJNArFGK8RWKf IFxcdCAyIFxcZmwgXFxmIE QpwIHxIOfyyaB3OFVxXnPh RG6kP61ad09nXQCvsdnvrc HjKBThQ0YsbqKgPEGfRXTo DLysGlFkYGYcz6h8yWS7lM GkrEP6aANtvGbxSbBcBI2n gQTgNI8gCSujUZfyidAlr8 ZySL84oODlqaWbuaRqSoAe fP7hHeHlknXlpdW6hz9qpD HfpOXoAXWkM88sxiJmk4Kb V94tz39nsZTjn3SyrS8iMW UxPOJwlGTgohRkDC9huAde AA7cJVDcO12lhX9jWXevvM L7EREcYZXGgtZnLE6lQHnm JHJ9HHSoSTHoTJ6vMQGeXR MbmCBmq7s1KEVjirVmzCUn u1Vkqe3kQPBbBFLfAXyuZE Sbw35avBqiLD1mhD84GF2u HGB0nYYqsXNrDVLoLXFzUM AcvCZkzGKxJX77ZIU0LkEr VGhlIHNwZWNpbWVuIGlzIH CzP7Wqk72yIOZ8dzLuLERe YWwgdGFuLXBpbmssIHNtb2 71kHJmjXOaf5Wnk5q0eABp m0SvKKlfEBZfpNy1OLL8jR JlLiAgVGhlIHdhbGwgdGhp C5slEYWdMOUludtkrwFeTz XxBR10VSAdWxLhZLrpaeXb eHLhYBBzPpGyF88fN7RykZ JicF4yaIJly8KuHdYcEmAg ayQvQW35HVFywtNud6GsoC wovaSrMDVoVJL0Pn8cpTRh IP9grUHmPEUgmvNXQOH2rZ 1sBJVsSHZ8DNCqxqOPWCcm NK85uQZfBJ8wOS0egJNwD7 luXHBhciBEMjogUmVwcmVz IS41SZOhyoAii3Hhq1WiiS uiCQQiVKUbdQ1qMBCoESOh H4NcoJRqTLTlJaSFj6sdiu J4jZWtGZRdwLLrOE7mGDS0 YWxsXHBhciBENDogMSBpbn FiT1TigDbmjQatnw0yXOkn YXJccGFyIENoZWxzZWEgR3 DjcR5yYV8OOnmhIRSjJZQG U4HvT818AFIyhLUfODV9NT 6aeRkuADRbG3RjX5EvlrE2 XHBhcn0= INTRAOPERATIVE h7tcsMNdJDVceIF4NoRxHR CONSULTATION (test code Rnf9zsx3CyxFAjfOOcTNpr = [id number]) dNPkxxKwvt42uFN1oY50CO 1fTJUtVtO9PUXtbzH8Dfg5 EDUxXTDfnJIiV849v4fsg4 nejqWahVW3vNejTMEhcutl WhV9AJrmDSFwlcknZXc4PZ xsLOHoiDS3SIVxeWDjV6Xq YYDqAH1zsmp7DDK5UJnlBG NuLdW7NUBlmVFyVXWviQri MTtbo115AAN9GyCoQXAyki Q1GRzlDUZaR6AkT0QpPIhd MTY9QUDyYSFeIWCqKMXxJF BpUIhcfzD4l3uiFIYpqYNd WCF9MNgcgFBdOJCfNVTnNW gnAoGUAgGxMqZ9NRU4SkIo YtJ6JNd7KZBFVwWsPjTiYc B6QWSgUQlcMFl8LWq9LRuP ItD6OykmOyNnHXCmUFSvPX RbFDc6KGUaMInnrHGvJGHj AXTxIMsmXIaaY70zlCfilF 5cZnMyMCBBLiBCbGFkZGVy LlxwYXJcZnMyMCBCTEFERE IQQW0QIsiCJocnhVJnSP3D KTWRL88YL7KKBAIBXMFWX8 LPUQPWLQGWCOTEJu6LAYXn LA9CQZCBWUSAWX8CJKOoyo VjOvFXGXMLYwDqOk6HKS4F TpcFRDTlO4WRL4tMP04OBW DtfnslSGFzXhJqn6V7HSWm GaxxUAOaOSDspoQmYT6aSP ZnSuFAm2tbjK7uAQQuPHxi ItRtqC3gEBMxLVSxFoYmSj daUIVaDGJ6FP52DZGuiQRc WVA6WW3bqNraDEGfZ1OaE8 PxusG1EQBqbs7= Gross assessment was [facility] performed at ([facility], = 2777) Department of Pathology, [address] [place] [address], Technical component was [facility] performed at ([facility], = 2778) Department of Pathology, [address] [place], [place] [id number], Professional component [facility] was performed at ([facility], code = 2779) Department of Pathology, [address] [place] [address], [id number] 12:08:44 Test Item Value Reference Range Interpretation Comments Case Report (test code Surgical Pathology = 104) Report Case: [id number] Authorizing Provider: Matt Ahumada MD Collected: 11/04/2022 11:02 AM Ordering Location: [facility] Received: 11/04/2022 11:06 AM SERVICES Pathologist: Ruby Cole MD Specimens: A) - Bladder, Bladder Margin B) - Large Intestine, Colon - Sigmoid C) - Ureter, Right, right asaf-ureteral tissue D) - colon, Proximal Margin DIAGNOSIS (test code = [id number] 3220) FuZzEwMzNcZnRuYmpcdWMx IHtccnRmMVxlcGljOTYwMl xswwDgSLSwtPZkL0Cccqgo GTajWG1yQK3rlPeywWRgaQ LfFXUcTuPrm9uku211mLGs r2dqJPKBizjamBm7oPjnB0 2xg4C9XxxcE27haCWwXYU3 MCSeDGSlwPXsWCKaPYH0RX KooDMdW1ejSLHkMI4oqlrt TZqjHMfcLAAqmRE8JLNvbK OyM3IjVKNjOEtbLUEknso3 SbTtMw1ixNGvtTxdHHgsAN NoIUKpLVocEQCoKgPjDI5a FxtBWYZKJnzxXZVNH2fWZW VZBTFRV0pWWgavAPNcbgLo OX2uDcgbwe3gfGIsmNnwhz M7kCByqUObj2z5vVMxiAQt evmgGDmaCqnueK0cwMkhuf 5nyNAjJZLcUZXWDUrilHe0 JNIxe8CtA0CgK4tcl17aZJ QqvjpkXCNjNs3uP15NS46v LGEUE7VNYMEZVKnDX6dTLT BBTkQgUkVDVFVNLCBBTkQg KQNAWRySPPpqZWrNQH7aQU KBODKSD8JyTaJEMUYBKO8Z OlxwYXIgICAtIEludmFzaX DrZLYxGV9iD1FdS2sls58t SI0jAIUvUJLsSBO0q0JlQ2 2wpVPmT84hh12xOW3vGVLz YJGwsFddQHjaSaQfKH20hY E2HWRkAPrcBYGyBPLtIYCh clxmaTcyMCAtIDEzIGNtIG nuBTlmFLH2WLS4OCBsjLNt m8vsxeAmsi2nc6s9UZSrMM GuL94ejPUpbPzzSVHlAQNE ujIkFMJgSJQeCFK5bOTdRY QnyKRwFDKfeA3fELLqRGJy dvOcBU2aJ4O7nNKyCPThzy QiuR9npF16JBDgmCbyvpJa zeXdaORxlA2tbIFlmOCftt Zrl7cqbj2nvUXxUU9pUMar CW8qsuvrqxTkODUqPKxmNZ Bvr9GjIKRqk3qsnPKbXXTe ZNLpjTE0BRvmVQRuH1Gkj8 ixaQ3yGMFtra16lA6sxLTy bmQgZGlzdGFsIGFuZCBvbW JhbDIcGK5tkrcqseTteiCv UTDpdiCmKg0bIDfcoaJabJ WoZJFqpoTune8hILAovnQb sGiuGIpjEUApSXJ7o6XzHD NpYVxwYXJcZmkwICAgLSA1 LCBxpP0wcBUof9Rjmzayja XuKUFnslXdGd3mVI2xdYen roGaA4drEVAvAJDuXNGkim VzAD9GANT3n0VmC27iyLEk gEBpc9Cdw4d6vAPyvJJkmr HwT0Kjj5NrplX7xYMlHXDo anhul1nhcimeJTFaj1Ual8 AusI84a4v2dO7iPIYbP3Ka PTJzxf4zYMyoCiiwAGOmyj K0ZLkgHMBwlRvnp7ubBVSz hq8uKCdiBAJeUFDlBNzpYU BaKG56T20jRPD8hSOjCJ6u MBHkS28bXuvjFC90TILiwZ paxM8gsZTpBJIon0FbRNed dHlccGFyICAgLSBDZWNhbC Yiw7btanPovTZfb8Gbn2e7 eGTqrkVisBbrhGQmW3UswL YcpUT0l7RhqVamkQ8otDSi NLFcp9VmYXkkvWgmNFMxry seFNVuBz5lV96TZQXXDUDX MSQgCUEZP0yLGONHGhiBYe GAFAPSAFtuOJaYMWJAF848 HMFnyfVjEY1yFlrwmr5ycL DixLprjzB8rMHzeMSmt1p8 aCBjaHJvbmljIGluZmxhbW 1hdGlvblxwYXIgICAtIFRy LW5nQZG8CYHaQ4Ggkp3vkU ljIGNvcmQgaWRlbnRpZmll PH7ofIYnUWYibaWQKcENJ5 xPTiwgUFJPWElNQUwgTUFS T5vSYUKOCFXTP5xFVlomaC BuLNXlNMGRl1cyppjeQP69 Y61vHWB3qQHsLS0yJAUuJ3 3wMnclDE92SGmiy1MzcVO7 fF7tc0uhVtXpWv9lff4rdE w7mI7vzXSsVISoFQRbIAPe jzyrmuHrCTAbxDo9ARXhpR 3vvFZqLX1nDYAvlEFmCVZh wtvmSZKpogTnCR3xSVRLCU 2KR8lGPiBRQY1YDzLGPRZG NLvzmEW2UVWQCDMWxVQaSV sNRwF9CUetFAXJMUsDUpxl cGFyXHBhcmRcYjBccGFyXH JytzbzFHU3o0otyZUbKTVi dGUxODAwMFxhbnNpXGRlZm sfdhsjHJAhMGG7twHpHTMa RGboVBEcKOouWq8daJSsmC txJkThCAAqz2izoeAStmlc vUz8w5bkJFMnFlF8iYKoSK icP0ifmzNvhWPfUVHcVDe0 bY05FTPyvM9qwIOtWEognk QrTsI4MMsnDGHfJaW9MKZs mGThETDuN8weTXTgUVunGG BtDPgxtESlLDG0uDvap0I7 bGVzaGVldHtcZjBcZnMyMi CAx8MvEYe6tYraT8EfTMUz BdI3qVInPFReFBmqATAyEC FcasB7yG90ERinbhA4oCYd i4Kdk95ro970lC5xgVEgCX O0EGWyPQIrsYVbGJTfPLK0 AHSbjAAyT9idALYaBH2ued yzQCioHFqwRINkqDE5VWNh kTLoP9ZkUILdIDgyRWBfbo d8XpFhFt0erXAxbVwyXNev e0nbo1ndxVGlVpx1LAUmQx PfCenzWHzue3Ngp5hvQXFe nj5kVDK6uSWatIncd6V5eW WbHBDimEVlFHPlYY7rtVEd UBCkhU5upfulNVEgBgMtmq crITRwoPximdNxAs3vcGnv IKL8VWicL4xqyQ2iIoD4LE nsV4tivC1fZRs8MRrrTYQs bEP1wtL2UMWspKFtH6MksU 8rDNKgKQ2lowb5r2juMYI9 VBfeMSHmKxD1cjK4UJRvsQ CpLDYrsOlfILgpk149GZM1 NoJjCKFae8MrE7BthHpcL2 7eeCqmW36hJUMvqGnwaF4y eHvljI9sOoLhZyUtPWqzzH zlKS3sZZMfJ2cxrJNoTZHx IUZjX8xfQwIgsK0rvWlaAZ zcehJbSUYjVys7VUXqrXBs YJFlIca8PGBbPQLgE09snv icQFC9gD4xy4hzd4GxDHlg JWC3RMZgw29jEQurklU6XY mjQr33ABhvLVG7CHfhUMP8 fQ== COMMENT (test code = s5ugxBInVWEpsAB4VyGvXA 5519) Lkd1gug6HisFVhvSShKJre xNBuvvEsug77mOX0uF28AQ 3nSIQvZoL3JDCqjwT0Sqy4 DCWaSECkrIAvY659g4agk2 sxcvIwdEP3WZFfOZQdS1Pe ER9uZFPpkFKmJ09ceMPgZP O7YRUuGDJisLJiTAWhTCX8 CDIewQBwT6exVCEoTH8gqt ptSNbiTMjvAAGxyHH9QICv tKApQ7LmMPMiJEoeXEPepy r4YrNbIu3vdHRrkAvhXTra YXJkXHBsYWluXGZzMjAgVG nvIOU8kA7iLVhvee1nfkLb LGDaWSVcTDK3y1WlY53npY GlHVOsMKJdc7MiP6vikKKk GOsggXbiQLi0QQP2vHN1uE r9eDAxh2t0oQKlBXJiDSGb lWPiqXMoxQ2uMFU2BBhuKW IlQ4XzwuNcm0VgEYXkz18f d9i8tAWpPIjzp9gskvC5ox F3mUPue67zyHwrXu85JNco FQ1bSGBiGUEiWOMdFADHcP WnyQMwk9EciBQmcZ54b2r6 uB9hYIUfCLM4cGXvBOXlaL UpUOXtjQ0xWSHeCJajvPwm HMXwr5JbEDLdNMWmyyLlEI 0rIPGjl16vDM0nIPBxCdQt qe3uHOwaa2M4YRNvZU0kOQ O4fA8vPDswxuRzAZYnxDdk aIClJVzoFHKaMYAuj9J6rO 9oXY9iAIUjLJHcMXHxc1Aq mNexl9Vcx23cuItnIz34HQ ejo4LhO1KpeE2vRYPXxWDd LLEymwTpWWJ6UyQdYNRav7 UdfAP4qMGpOU1zmXLbHMTu YmVkZGVkIGluIHRoZSBtYX SsMER3dDcgyCZ5SJCkV7Pb g2EexKXcVIPnhYixsSRqTE QbRYIjsZVeFCt8IvWUe3qo arGdHXJsoSPjoaV0sEAeUT q9FYR8eJU6mG5ujOQdlS8c zUwzLCJbO37thBEyNNXizP GvjMF3DMOedclzk0YwnSLh DSLgSIRnldFhsF97a2m4RG 9odeGfp3UqSGu5FDS5xGF0 iNDxb3o2xZZbi9YzK9kwtO VkIGRpdmVydGljdWxpdGlz XSQtXSK1lU0smh8qKH40HD DefVieZFQprJJuT7BmDNYw dpXlBPQ0HOOkHSEmnMRcCV CkYDGtCXUwQZiigMotyr8c bPrxdQwvhw8oVPNvelClnB kxuvJfgEZ5Q7H1xnLqGZfh mp3eddQzQE43WkzeYOIwrG FyIFRoZSBtaXNtYXRjaCBy ZXBhaXIgcHJvdGVpbnMgKE 1PFAAyPD2UTFGcIJ1MEIEz FD9vKOYQCvNxPSovmjQswU 06TLP3HXLrRTBcnpA1lJIb jBXfh5KpZhroeQU5ULIzzX 6usDBmOZEuRPGASxChVQO1 PlDbQ8NwBPkdMTKofmxpDZ JccGFyfQ== SYNOPTIC REPORT (test COLON AND RECTUM: code = 5765) Resection, Including Transanal Disk Excision of Rectal NeoplasmsCOLON AND RECTUM: RESECTION - All [employer] Edition - Protocol posted: 03/10/2022 SPECIMEN Procedure: en-bloc resection with sigmoid, rectum, cecum, and terminal ileum Macroscopic Evaluation of Mesorectum: Cannot be determined: Due to mild adhesions with the small bowel and bladder TUMOR Tumor Site: Rectosigmoid Histologic Type: Adenocarcinoma Histologic Grade: G2, moderately differentiated Tumor Size: Cannot be determined: Due to marked adhesion with the small bowel and bladder ~ largest dimention 13 cm grossly Tumor Extent: Invades visceral peritoneum Macroscopic Tumor Perforation: Cannot be determined: Due to adherent small bowel and bladder wall Lymphovascular Invasion: Not identified Perineural Invasion: Not identified Number of Tumor Buds: 2 per 'hotspot' field Tumor [place] Score: Low (0-4) Type of Polyp in which Invasive Carcinoma Arose: None identified Treatment Effect: No known presurgical therapy MARGINS Margin Status for Invasive Carcinoma: All margins negative for invasive carcinoma Closest Margin(s) to Invasive Carcinoma: Proximal Closest Margin(s) to Invasive Carcinoma: Distal Closest Margin(s) to Invasive Carcinoma: Radial (circumferential) or mesenteric: rectosigmoid mesenteric margin Closest Margin(s) to Invasive Carcinoma: Small bowel, proximal and distal Distance from Invasive Carcinoma to Closest Margin: 7.5 cm Distance from Invasive Carcinoma to Radial (Circumferential) Margin: Cannot be determined: Due to marked adhesion to the small bowel cecum and bladder muscle Distance from Invasive Carcinoma to Distal Margin: Distance already reported as closest margin: 7.5 Margin Status for Non-Invasive Tumor: All margins negative for high-grade dysplasia / intramucosal carcinoma and low-grade dysplasia REGIONAL LYMPH NODES Regional Lymph Node Status: : All regional lymph nodes negative for tumor Number of Lymph Nodes Examined: 51 Tumor Deposits: Not identified DISTANT METASTASIS PATHOLOGIC STAGE CLASSIFICATION (pTNM, AJCC 8th Edition) Reporting of pT, pN, and (when applicable) pM categories is based on information available to the pathologist at the time the report is issued. As per the AJCC (Chapter 1, 8th Ed.) it is the managing physician's responsibility to establish the final pathologic stage based upon all pertinent information, including but potentially not limited to this pathology report. pT Category: pT4a pN Category: pN0 ADDITIONAL FINDINGS Additional Findings: Diverticulosis CPT Code(s) (test code p9ldiEWjISDkrRW8QrYdQZ = 3357) Rbd1zsa0BywEZdtAUiJJgm tXLjxoVhkk67jZY5rC72RI 2yKSCcBmE6HCGfmmF1Trz2 SDQqHNUmbVTbY030d3qqm1 yzojGmoGZ9eFsfHBZaocla LxU7QVzeKEVvanjnINn7GX qlXNPhcXG8VMCsjGQxU2Ny JUOsXF4vvvl6RLK5PUfnOM NmOtT6CJCoxOLlPOLltOxv EZemu333QWE2IeUaBHFzyq IopGaxdM2uLvQkEGT2DGSl MAO7DDgpCHYiPDejAIA1Rr bhHSMzSQspECe6LDdpNRAi GBilSbGehXGcEZl6AeCbaA JccGFyXHBhcn0= CLINICAL HISTORY (test p3xeuUHfKHMtyEO5ItPhHD code = 3356) Lav7qhk7KgvDWyoRZiGZnn rODtpcXzmk90aID2lK30OC 2aHNCdIrL7YTCmumC3Uwq7 KXRwQDRgzQWaK041w5xyd8 lhutSsnAG6pMygBJKzaqps ZeX2SNtqISQzkogeZBo5OV qmTEMqiAX5FIAazSGnK0Ek UUGfEF5xuoy4GJK7JMavNE HlCmJ0JLRfbGLeKOLvzMyk EEnlo809JFG0PrJmPOIsvz FppPpelO3pQmFlXHJ4IrX0 Ao5fPP3uwENdn6r0dYYzZO BDYJKkxEgmyEZjM7ZgjVEx s6YgDITQLBXpZTGPAYN0Ix OhuJYzAsThLBOsAFHon7no bCBtYXNzIGNhdXNpbmcgcm JifPXdH4Phj7DchFExK17m iJMay9YhiKG4E1Yem01cXK Bhcn0= SPECIMEN SOURCE (test d9idfGPqPTPtjIG8ZgRuPY code = 3377) Wsb0wlg9CbcUXvkDSrRPbd aLDomxEiuj97tGG8oG11DV 0cTPXbOjL3PBLcjbF8Mjc5 UEYzRWPavXYlL871d8vuu0 lqdwQpqTR4qHxxLBRzwedz XrE5TMzmDTZabemtSEt3VK ukCZBioOE1GENngXGvE7Vh PZPfIU4cxni8AXH3YCumSW NiSeX1XCYrnVNgWYWmmLsp KRcnj927XNE4OmRaOFWcfv PvdWhybD5xKvWfOUZVTDE9 f9WoB52kyZRaWWMnPGqfXM Yqa7BhOCClhCRpSSOjZBXl cn0= GROSS DESCRIPTION (test v0sefETtYDTckPD3RaRsAE code = [id number]) Mgb6esa2ZyvRBkoZIxMLcx lMQpoeKpot35hNO0lC32WB 8eQZOyDeM8WWEkvcT1Ceg8 FZWuITDexEYrP590z6jyc2 krmdTqpCG3pTgdNWTpyajj DyB1LLnsIAOnnjazRMh7LR fiWSCtlIW7EPXzgNCnS6Ew VQQdEP3uucz1MWC7RYymEG NsZzE7WFKwvRMeDEGzsUkr EJrjh786ZMR6OkIlTOGqco X3XPumIWKyI6RqB4SbLDcj NFY3VWEaDQNqRUOzSQXmLT CoVEkymgA4s9cxATHxgCHr SKE2IFdhwWBjUEWrKFZiHE heXaYWCoFkBlJ0GJY2RgZx KkA3AJu6IGMXTpAaXvLhUy J7ZPFuDTwuLCi8SCg9NUzD WzS5ItquFmmxHhjaOXZlBA XqBNp1VQXjMCjlwFNzQZNh YKYvWKfmEAidW42ooHmmaS 5cZnMyMCBBLiBCbGFkZGVy LlxwYXJcZnMyMCBUaGUgc3 LtO6bjTI7csBDpimYjPDj3 QOPkOsIfn6hdAa6nFKGbe5 xcigHvLLJ7oJ0kCPSvDPgn w9TtpteavFDqJYbmEJP4dU YwGXHwBFIxGBLwGE83CHie NHMgbmFtZSwgTVJOIGFuZC AiYmxhZGRlciIgaXMgYSAy IvHqjIBeDOGgOBYwh2LiSV 50MZShYBfpnPLyNIDqFfR4 uAw8JNCouAUoz1RiKTgalD SkBIL2ejZwHTWalLDiKH8z MRSpPnUmyD0tXAIrXXBymU Nds9GxrPBemQ8vNX1mvtcd UukrJwKrEVxvFZ7mdulngs BpcyBpbmtlZCBibHVlIGFu OSX6aPQaz5DsI8dbDT8pgQ Roz6TstLFtdRfys5CfyNkr zvG5njSjQCFtIXapwE6tFS 1hcmthYmxlIGZpYnJvdXMg sWvbn4OqGjIpHYpfCZNoBK NpbWVuIGlzIGVudGlyZWx5 PZT7Er9jdOGfTG9yjVOeSX TtaiCBWNJ9zR6nWCQjASJ3 XHBhciBGUyBBMTogVGlwcy tum3RshJs4eTZjSDCzjQUb aWRlIHVwXHBhciBGUyBBMi 1GUyBBMzogUmVtYWluZGVy RR3aQGLfXWDwkCWlXPDkhc NZS7ufNTSqF1SrB6AhejWm cPPwXPJsjvYsg6srAES8CX NsbXVsdDBcZnMxNlxwYXJ9 a8gzIRYlpMZlGIA7RZydrJ QgNTEwMDIgXFxkYiBPVlIg RvQ4JHO6MiNdWmD9YVg9VN HKKrNbXeRgJeV4FDA6WwBw PFx3CGy7EJvFEjD0NixhDO EgLyarUNCxODFgOTa4TUCh XFxmbCBcXGYgQXJpYWwgXF juQ81bZkOaDZBRTdQKEKNr SBAUooDcq3BmurXqQPSonX 8nTE4kH7qwzX4lUG1maBHt RZWqPeQdL43pYLitRDYxgt IkUNv8XYClNxUqz2dnfILw SVnkSVN3eNObDQErOFGeDY MvNA65PNtiRBKsenGoAHqe bWVkaWNhbCByZWNvcmQgbn ZoPkMhSTPbHTWuk7jnyD2w ZCwgcmVjdHVtLCByaWdodC Hli5ygnwRakGSvIZ5lOJ3b DjqwQqQuPRTuZ5Lav61crU 0ekE4txDEjKXS3JYQwkB6e xOQgtUJ2rBVdUDKuRVJamB QdrrCvDR1tvQqqVQVtWMHl bSBpbiBkaWFtZXRlciksIG JxT1WmSMp7MhJyO18ucM3i nDLzC7TkDNZvTOEiZjChW3 7xbQ5yZPscyWV4XZHoDOFe WAapu1FnYT7gED17zL4pRS dphHYkEZxbGP7yCEFuWCuh YWRoZXJlZCBkZXRydXNvci FgzFWzyVVgPNpiIpV9FUwb yGLeReYfP50nNABeFTOga6 NzaWJsZSBhcHBlbmRpeCBv wmGlaGThgqPjV7SfSGPeJn 55RDMyZNfbWNjdzdm4tQKa hrIzSA92RAExRLfvUREnOJ 9hsBQiFC7tSNVfGVYvPIex ZNNmlQ7gGVSqdHMxQS1kvM 07HD9jPP5nh4DvsCVbtC3m IFxwYXJccGFyIFRoZSBzZX Hjo1EjqIBkJMonIvCyCCq5 RLYrazbyk9QeVZT6ePPoGI ZxpZ5uSH94ILDxi2JsuXAy VkWsPFjri9uamnBrZEJPsB Lru7Kab8DdKN8ySPRtRQLn dKAimIIpSOnqBIIfTpS8s2 KejEBiVA3cteGzRJvlWa9z ZLAqPXZyFVR3sXCwezDsFI imvbRoAQAnHTXrPVT7GOHr sL7ikGDfgCX3kHMmvmMkzU jmEOPleo1duvHkCHgdSTRp WYlbGELipXLcGOXiyQ0kiX uhGXIkL87mqXLiG87sr27u UKRZzQWpq7SaL3riWZ9uxB Ztz7UzldJoRGXiPKXjtpOt uWMzxdGesDloNTYeyO4tOI nxuOlhck2nCTSoHBxawCah abkfC3VzfUvgv32mgKWkMI 9ll1DwhLIdILGhs8ZgOdOp NKKoPYuoUQRwTJYtNJ92ND Pnf6UjxQehJZObGXTpwMUg MLzyMb06TEiuCV8sENkwOx 8jTAYtWB4yGEQlMUDpDOXk XHgdKWpeKHMhpJPefs1rTW FmOBHzyXF0DMdhwtSqvKHz WI9vnmluylohLGMdOSMesL Tkuu7wBWFkLUVfsj63lO8t uIBevPyxe4soKB3itrutkk qqUd8gYSDxLQZev34cuDgg OZBtff4oxlKpFSpiIHOlFQ 7mdpedhmggBj43KRCvRKTq c01csXdlCGXiE1WuCANbrR 7kLC1zvjlmenznUR4yVDPb ZXDiz96jjSvhTO4hZO34uN 6ztUUoI1ykMOKnnQNpn9Vv aGVzIHRoZSBtZXNlbnRlcm fdVM5jdwsywhKvJsU0aLDa xgNrzL5srGjky6akIXFofJ 3yTKLsiaJtDSK8wBSneJvg EPLzto2sQCKtBvY5cXZdt8 dceW0eBKBcw0crrs2cBYle YXJccGFyIFRoZSBtYXNzIG TuFSZeqx07RHpwvq2cbhBw fNvoMRGbwx5rwyFqQRcsYQ UkIQ7aNJBhP6WsEW32W16y ON8oNPLjPGGlOZYtIVHcMN IeTl8vrZBytxAtZbZzMNFr JTxvQYUiXEM8LUgzKP0zGH BcTMQ6PIYzsO9eqCEgtBW7 kK3wKCbbMU3rm8TqMN8awp Ynm2IzeG62p1q7LPQ8zTBi IBZ7akUph5FdyQNyU3wjZv GcZCxycdBhAWYrEF02wOFf cLooNDBslkqmC4EicKPrqS 3drSBfz4HqftDnRC8woP8a OKOzFg1sOxrpK96cWVVCUI NgurBjQU3rAPUyRS5xQRHo IYkpu0GfeXwhmM3wgUCkbc UuICBSZXByZXNlbnRhdGl2 TLCtWDZ1aJ8vadOscqGbm1 VywGp3dOVuQzAjR1Lki9Pp nNzbvN7qmnCepJKmWCInAD Pxp6KlDeznRTJhyLCxQYve qeVep4TnUkytYIUuJmt5VQ obFAYpTQ18MVFlHzAaGXVs zU8ww0VdGAMkJH8yrS3lQM LtgT1cXBmerBhxiZ4jUnNp bVd0K4cnjHEgDFTbSXIvME wwtVCbWF37UZCtYeSpTKVd pG3yUNLdnw2jGOAxVlYvQE B6j1XjU06hoOWzR61ji05z gHVtOX6vYX1tIVJ2JE7aq3 RuuJ9rM8wrx2HljVAlZRZh v0Gwq1ZydUstKSTqR87smH FnY67yf98ypBKdICpfGOTv CrOTiIRijXDoYZ7mgbymfb xwYXIgUHVycGxlOiBPdXRl euMkiUHmCMIxYG7xJQY4eK GduAHtZKVbdVZ4a22mZV61 f5UjEIgjTXShJvLfDpRMFA O5wFEws3CfpPTtlaVhPryn TPQmc18lpXCopB2bWOBes7 9nkKedPNUtrVEdDUThT1Cr e08eJ17sTUoqfVFpOUGpCl NCMAUulS8xmQQmhTS9iKZz YDNkoU8qZC0nLJVoN0e0PR CfcF4yOT3gyopuesfpOO2o JmVpKOxxIAKzDkD1QMjuIS 4oXUUyqVI1UCz3HEgrOGEq ObP0OHOriWAxo2RrsNY5bJ NzJQ1tTW5yZR59QFhdrORg L3lwVVQvgvFmVKAsURLcuk OWYNZ2BI4jc1JfjILksOIm lGQpD6xfDU3vKTQhS1AnIU BlbiBmYWNlXHBhciBCNTog RWvggLSyNIGvH4UmfXDjOP WzsC3zPHFjNPMqQ4VfyDBy IRU1UkGMda94rO7awYVodE dyg9lkOYZniO3nHS5cdrum kgjgMR9pSnEtQPqhYNTqCq p9ZQ5we5LawW3taD1iyeIt zDAaLQFaiSzzd3hlCTMzcL 1mGUUbvqOPUIihKWT5cjBw g1BzvIHnW3xfLIOtUB0lKK 39tK1fhQHbPDS9YFhlBJA6 cgHez5NddAExC7dmSBExKA Lnji6iqrDnPWbpOIVrFAKb ciBCMTAtQjExOiBGdWxsLX PbcDNqxzQazcWrXJW7fZ1i XH7eNFErXVnsTVUqg5JmUW BxNUDwF21vsTVpJ50ae55y dG0bnP6aiLFuDSZcMkVuTO NzXHBhciBCMTItQjEzIDog tOMhjvJ8nxSiyD5dTPY4DH KiW8Mmg2nlbB9qNUJxFNZt faPiibvfXR6pgqrfnqwziV VycGVuZGljdWxhciBzZWN0 oO1ih2uyOFKoOdQ2PXUqBF grGJZgfqvdX2KocZEnCD0r OBNpA3Vdr8ejiG6sGJGnb4 dvdlioPCPaOeW0KsQYXPPd NVRdsRtjo9rrRQSwzY8bCO SxbkMEWWH4ZWJxMAoqREk8 QGE1nFM6gJRkp6EhgF3gl2 vxsKVbBNVtDG8xzJmfnRWz IHOqEJ7KHaH9JQ2dq7KlsE 2pN1hoa1MreMCzQYPnf4Lq QTGsF52coDDnT06dd50fvR KeQFUhAiwwVPZexeTrW0Np tWnxvKyacz1jPAMyzTEfHM IpAP9XLlD6ZVZpS1Rrf8Wl gZTtu4TopHc1FPFsiG7iuK Kjn4BcOOF5bgbtBST8HNPr pSRhVYExXlppFTGmvt6hp8 k0XBKeg3y8xKThUWw1eDJe EC0tPESnKUQlaKYgO1LmGY ruZQYmMgI4WhJlMDarw8Vk cXljqH5syCNwzcLadTvpoH vnrq4aDEbbzIIjo8UmhQKa RLPeusDTIsp1PNUojInmkK diui7wADoqQjbnLHK1ZVEh oUCySNPxXVqiSNZktP2wqO Ply0UmXYIneNMmU4YcBSlg YXIgQjMwLUIzMjogMSBseW 7pzJVgu9BnKXSqGRSaJXza hBXwADC0kI1sTJIcwRTnQE SmLlfgMJEwxM2icVRfm9Fd HQUpbGXlhxmwWVC5PUPfyV TzCAXkWByiBQZbkQ2zeKBn m2EzHFA5odccKND8ZRMvsZ BoXLLqJOcaWSNkhD9bdOBz f5JkLHM1qejnKBG8QJStpU VxLBNiQz0NXBTgDbXuZYq0 qFCePY9bHESuUphbRNF0WV BphT1bRHRpcGRiVQZiCUQ8 PPrnEWJnFgRcRmAqGYi7rA OzTJ0fRFOjBOSnaYYhS1Yx OZtiQDHsWuPuCiTqYKa7lS TaBW8rIWCnBHUqaBWiC1Yo MSiiOTGwRnQ4WDE1HYiqDR QzvX1kgEBkh0HgPNEfdSQp vbuzNGD1PSMatTWbQJP2Zh rnCWNtvkMnG9MdyJdptQvs gu3jIRVtgFEaXZD5RvmtGW WujqHiB1WvoFffvHrwbg7x IJXmwBFpHRW6EVP6AXAspU 15DWN8AJe6lWTwJW4jCTAy QMMlerWMDSv7BSGzHRcjOU Lop6FeNOKaEDIwR40crCIm P94dt56gwJXxSLC3NY7HSO X7ZVEiKKtdLZTne4UgKVYm SFBjL97xjXGmE04ic77mTX UiniAvhhEfaXZem7NptQcj hyEtzOQgJDE8UgjuU57kiU flVk11ZEmfnI2kn6tqmP2k BJQwn2mpzridKRZnYwA2DX L7NWgfY3dyoY3yWSFgFEQd WURyHIVwodrfd5laVuJhWT WmsEVyAGMtKVJ7FZXkmO81 OWY7UAu8qRQkYZ5pPCJgKO ApzlUZWSjeBzJ0PeTUm2Hu aWJsZSBhcHBlbmRpeHtcZX QlK0IqA0WiduBfgIDpPQFi vpGbp8gvMXM5ZSFzkMFmpT YdGsRwIyprJKP1r4etUEDd tOYmRBP0CXbgbYZaYDAqNR XpQJqhZhJJOlGyPuH6VJZ6 LdAhKqA5JKa9XVTGFcBvEz OyHjV2RXZaXyBcORv0VTa7 FErATiT8DgvkDECxIWGnBF XnKEViXTf8ISZySQedjCBs FTZaWLZkHZwtCJasT73oRk YzKPPYFbCBwvH4PXXfHHNf H1m5PhjwVIXmKkEhWNVZEU NlaXZlZCBmcmVzaCBsYWJl bGVkIHdpdGggdGhlIHBhdG pprcXkL3Z4soHyGI6tBQUj XOWmZ1IeMTCoD15pXAXckL 3vSLBiOD5vQCLdgAxqiTPr ZXJpdXJldGVyYWwgdGlzc3 LiKoLipcZcAOwuJWL7URYn MSG9LFTtB10yBIsjodYtGY RhDZ1rIF81sCMkdUykFJNl fdrlaFVzhG88NOLtuoI2LH DiGFAxuQJxGXRrt5P1GUFb cmFnbWVudHMuICBUaGUgc3 QnW8nwMZ1pcYQtj5MrkHAz pUiog3FpqWrbhfAmTOBvWM JldmVhbCBhcmVhcyBvZiBm xJGhg1Mbrr3eTS1yLHzky9 FaAUiuj4jmpyWgBYZyHHed JS28xNYpUQJpZBAXTMWvKW RngaQauNj8JPXaDPI7gD5b bgAlerOqn6SuzWx4aCMnHO zmRKZbZPE6SoT8BRUpxBYw HTF1RN5aYGHzwrqtSNKdGQ WcUOT1SYeozM07nGSsODQv MTZccGFyfXtcKlxlcGljc2 VjdCBcXGlkIDUxMDAyIFxc EGPqW7KYXBJkIaQ5UEgpKX XdBEm5YKtlD5JIBHCrBQEn JuP8QsM9WuG4UPs6PCUBEz 9yIsi9JBHsRWKsNIK9CJDe IFxcdCAyIFxcZmwgXFxmIE RaxMZiTWyqkaI1AGWcQcWj RC1fK94xi50pSHSolvjevz CqXTIqQ2FjulPtWBUzZHLh ANsjApBbDOWgi5w0lTG1nN LjwJV7uSTykFqcXnZoCF9q gKJfYF7nJBtdNKzuigWzb2 HtMH11tWJbymTwcsRaUtVf vV0dMsNpwcCtoqF6cc3qdE MplLZeAKOnG69oreLas9Oy G70bi44ddNSde8JkrJ2aVL ThSOSfkLDmosJeUZ8lzIwh KF6yBZRjC11sdT7qWQdnrL G3UKQtSJUHxvEvPN5lSKyy HBA0GKWwLPRpHB7jLOSnXK WlxXYgc8u7GRDahcYspWKp n4Czje7uLOOkPIAbPCuzGY Idp58zdOgtXQ0seS71PC9s ZFT8mOTlgPOyTLTeWSUqHU PeyCZbpCEjEY11GQB0NuRu VGhlIHNwZWNpbWVuIGlzIH BdQ3Rec56aJYP7avEwYVOu YWwgdGFuLXBpbmssIHNtb2 94jRAzyNEho4Ywa2l0nISv y6ByCFujBQSxzZs6ZJA1cF JlLiAgVGhlIHdhbGwgdGhp Y8hdHTIgBHBqaahlmnPhJw DdZO14AGRrFwAxZPpavpFf aFWcXETlIbPlN62kV5JsbG FxsD4opAHys0GbUwUiTqQk usEpNQ63HLEfpyZnx8JtcI brdxXxICNaFXO2Zx6uiAVa YB9epDRvPCDchcCXQTL3sW 2nZNFlMLC1VHVqchKQDZlf FZ82oQIoUF1dJH5muHXqE2 luXHBhciBEMjogUmVwcmVz GI40WLVuvkGmy2Lvh3KypV gsBEBmNWAfgU2eDVKrFLKv S9RjpQSbXEUgQtFJl6pvsz C9mQDcKDOgeMKuWS8kOBC7 YWxsXHBhciBENDogMSBpbn JaV8QbwPnwwFyrgg9dQAuf YXJccGFyIENoZWxzZWEgR3 UonE2rEX0QUsgtDIOsUHZH V5CsG788BFJzlITfUJW0AY 7gmVtiEUQtK0ZnV9WookV5 XHBhcn0= INTRAOPERATIVE u2fntKQiBJCnnVE0RsHaDT CONSULTATION (test code Lte1vvp9MgfDXbeJQzWNws = [id number]) rRMtlaQtec02eLC3wH16HL 4zRXEqBhG8SJJiucM8Uii2 UABaHJGfbXFyX030o7btc4 nyakDloGH9vLfbDGHdoyfy YaS4ZOcwUXGpqnabHHf9AZ uqOIBraGT4QRQsvAJqW6Nd URNkRW3anrw4SHY0XUrbGN AlQhR4EHBcpIVnWKDycGvz XFtyz742QYJ7QiKpZKExjx C8DFflEPHwZ6UlK1GiCIue INS5RHReRZGvZTCqCFKuQG BuZAqmdtB9w6gpLJLocUGm EMN9HXooiJZfDDLiELDdSJ rpElYOJxSlPwH2NCK4ZyTd EvI1BYk6XAUDDaZvXeHzUa J3CWLzPAjzOTw3KZa7JPeR ArD4QkraBwLyBRXfYCTnHF WgJOw4IJOgDJkrwRQlAQTq NPHnNHbzOOjhY41lfAiqvI 5cZnMyMCBBLiBCbGFkZGVy LlxwYXJcZnMyMCBCTEFERE WPAD7FGtmUNhwkvGFzAX0G MHIUM51NC8AZTWDVPJTPX3 LZFEPVGNSJQMQNLk0TBCOo CD7CNWWPXNFBIR7USEUgiv AcLfJPGWJHZqGoQs6WKL4M JwtNDTXuP8KSM5mNL62XWR JgbtgjVSQoSzFcn1T5XTIn JwrbCOHeHVRxwaZnJK2dWO WcXwIKd7rmiW8zNBMtMUcu IlRnoB5yPBFgOISpUmZfNc ehQLHnWFN4JH79JOFrxOMd VJR4WA1taBihJSZtZ2NiJ3 QggzN2BHJmeu5= Gross assessment was [facility] performed at ([facility], = 2777) Department of Pathology, [address] [place] [address], Technical component was [facility] performed at ([facility], = 2200) Department of Pathology, [address] [place] [id number], Professional component [facility] was performed at ([facility], code = 2779) Department of Pathology, [address] [place] [address], [id number] 12:08:44Surgical Pathology Report Case: [id number] Authorizing Provider: Matt Ahumada MD Collected: 1:02 AM Ordering Location: [facility] Received: 11/04/2022 11:06 AM SERVICES Pathologist: Ruby Cole MD Specimens: A) - Bladder, Bladder Margin B) - Large Intestine, Colon - Sigmoid C) - Ureter, Right, right asaf- ureteral tissue D) - colon, Proximal Margin A. BLADDER, MARGIN, EXCISION: - Fib romuscular tissue with chronic inflammation. - Negative for carcinomaB. COLON, CECUM, SIGMOID, AND RECTUM, AND TERMINAL ILEUM, EN-BLOC RESECTION: - Invasive adenocarcinoma of the rectosigmoid colon, moderately differentiated (grade 2)- 13 cm in greatest dimension grossly, see comment- Invades the visceral peritoneum- Negative for lymphovascular and perineural invasion.- All margins, small bowel proximal and distal, rectosigmoid proximal and distal and omental margins negative for invasive carcinoma or high-grade dysplasia - 50 lymph nodes, negative for malignancy (0/50) -Rectosigmoid tumor with diverticulosis with pericolonic abscess involving cecal serosa, bladder wall, sigmoid serosa - Ileal mucosa with no significant pathologic abnormality - Cecal colon mucosa with no significant histopathologic abnormality C. SOFT TISSUE, RIGHT PERIURETERAL, EXCISION: - Fibromuscular tissue with chronic inflammation - Transected Spermatic cord identified.D. COLON, PROXIMAL MARGIN, EXCISION: - Colonic mucosawith no significant histopathologic abnormality. - 1 benign reactive lymph (0/1) - PATHOLOGIC TUMOR STAGE: pT4a N0 Mx (AJCC 8TH EDITION) Signing Pathologist Direct Phone Line: [phone] signed by Ruby Cole MD on 11/15/2022 at 12:08 PMThe tumor involves the rectosigmoid area associated with diverticulitis with marked pericolorectal abscess formation with adhesion to the small bowel and bladder. The tumor is involving the visceral peritoneum with associated inflammation and fibrin. However, no tumor was identified in the portion of bladder wall, or small bowel or cecum. There is a t ubular structure noted embedded in the mass, which was grossly identified as appendix. However, given the diverticulosis in the sigmoid, this may very well represent involvement of diverticula with associated diverticulitis and tumor. Overall, this case is best classified as T4a with no lymph node or other structures involvement.The mismatch repair proteins (MLH1, MSH2, MSH6 and PMS2) were intact as per the prior biopsy report ([id number]) COLON AND RECTUM: Resection, Including Transanal Disk Excision of Rectal NeoplasmsCOLON AND RECTUM: RESECTION - All Ozrcfjxal3jr Edition - Protocol posted: 03/10/20 22SPECIMEN Procedure: en-bloc resection with sigmoid, rectum, cecum, and terminal ileum Macroscopic Evaluation of Mesorectum: Cannot be determined: Due to mild adhesions with the small bowel and bladder TUMOR Tumor Site: Rectosigmoid Histologic Type: Adenocarcinoma Histologic Grade: G2, moderately differentiated Tumor Size: Cannot be determined: Due to marked adhesion with the small bowel and bladder~ largest dimention 13 cm grossly Tumor Extent: Invades visceral peritoneum Macroscopic Tumor Perforation: Cannot be determined: Due to adherent small bowel and bladder wall Lymphovascular Invasion: Not identified Perineural Invasion: Not identified Number of Tumor Buds: 2 per 'hotspot' field Tumor [place] Score: Low (0-4) Type of Polyp in which Invasive Carcinoma Arose: None identified Treatment Effect: No known presurgical therapy MARGINS Margin Status for Invasive Carcinoma: All margins negative forinvasive carcinoma Closest Margin(s) to Invasive Carcinoma: Proximal Closest Margin(s) to Invasive Carcinoma: Distal Closest Margin(s) to Invasive Carcinoma: Radial (circumferential) or mesenteric: rectosigmoid mesenteric margin Closest Margin(s) to Invasive Carcinoma: Small bowel, proximal and distalDistance from Invasive Carcinoma to Closest Margin: 7.5 cm Distance from Invasive Carcinoma to Radial (Circumferential) Margin: Cannot be determined: Due to marked adhesion to the small bowel cecum andbladder muscle Distance from Invasive Carcinoma to Distal Margin: Distance already reported as closest margin: 7.5 Margin Status for Non-Invasive Tumor: All margins negative for high-grade dysplasia / i ntramucosal carcinoma and low-grade dysplasia REGIONAL LYMPH NODES Regional Lymph Node Status: : Allregional lymph nodes negative for tumor Number of Lymph Nodes Examined: 51 Tumor Deposits: Not identified DISTANT METASTASISPATHOLOGIC STAGE CLASSIFICATION (pTNM, AJCC 8th Edition) Reporting of pT, pN,and (when applicable) pM categories is based on information available to the pathologist at the timethe report is issued. As per the AJCC (Chapter 1, 8th Ed.) it is the managing physician's responsibility to establish the final pathologic stage based upon all pertinent information, including but potentially not limited to this pathology report. pT Category: pT4a pN Category: pN0 ADDITIONAL FINDINGS A dditional Findings: Diverticulosis [id number] y.o. male with a PMH significant for HTN and DM w/ hx of large bowel mass causing rectal/distalsigmoid obstruction.Rectosigmoid, small bowel, bladderA. Bladder.The specimen is received fresh for frozen section diagnosis, labeled wi th the patient's name, MRN and "bladder" is a 2.5 x 1 cm unoriented ellipse of white mucosa excised to a depth of 0.6 cm. The mucosa is unremarkable. The margin is inked blue and the specimen is serially section to reveal unremarkable fibrous tissue. The specimen is entirely submitted.Section code:FS A1: Tips, submitted tip side upFS A2-FS A3: Remainder of specimenCGB. Large Intestine, Colon - Sigmoid.Go ahead received fresh labeled with the patient's name, medical record number and "sigmoid, rectum, right colon" is an en bloc resection to include terminal ileum (13.5 cm in length, 2.5 cm in diameter), cecum (5.2 cm in length and 2.5 cm in diameter), adhesed omentum (7 x 3 x 1.3 cm), adhered detrus or muscle (8.2 x 7 x 0.6 cm) and possible appendix or diverticula (3.5 cm in length and 0.8 cm in diameter). There is a moderate amount of mesentery. The serosa is diffusely congested with abundant amount of adhesions. The serosa of the omentum is diffusely hemorrhagic. The cecum is adhered to the terminal ileum and the terminal ileum is adhered to the sigmoid colon. The specimen is opened to reveal an ill-defined, pink-red, yellow, conn, solid, mostly necrotic mass in the center of the specimen (13.5 x 9.2 x 7.0 cm). The mass is 7.5 cm from the distal rectal margin, 10.8 cm from the proximal sigmoid margin, 7.0 cm from the terminal ileum margin, 7.5 cm from the cecum colon margin, 4.1 cm from the omentum margin, approaches the mesenteric margin of the rectosigmoid colon, and abuts the serosa of the sigmoid colon. The mass does not involve the terminal ileum or cecal mucosa. The mass does form an abscess in the wall of the terminal ileum. The mass does not involve the detrusor muscle. There aremultiple pink- conn lymph nodes ranging 0.2-1.8 cm. Several of them are grossly positive. [employer] sections are submitted. Gross photographs are taken.Ink code:Blue: Mesenteric margin of ascendingcolon with long stitchBlack : mesenteric margin, serosa of rectosigmoid colonOrange : Mass to closest serosa of the sigmoid colonGreen: Omentum marginPurple: Outer surface of attached detrusor muscleRed: Cecum for identification purposes onlySection code:B1: Terminal ileum margin and right colon margin, en faceB2: Ileocecal valveB3: [employer] of omental margin, en faceB4 : mesenteric margin of cecum, en faceB5: Distal rectal margin, en faceB6: Proximal sigmoid colon margin, en faceB7: Mass to uninvolved sigmoid colonB8: Detrusor muscle to omentumB9 : detrusor muscle to terminal lkkbsD26-Y31: Full-thickness section of small bowel to sigmoid colon to include cgpkkqyZ16-M74 : mass to closest rectosigmoid mesenteric margin, perpendicular elvtdcdpZ63-Y34: Mass, center of rectosigmoid nwkjfJ13: Mass, sigmoid bqdxjU-07-H55: Diverticula or possible rwxttjpdJ77-I55: Mass to closest serosa, sigmoid zkzqyZ88: 5 intact lymph whmjiL83-F59: 1 grossly positive lymph node, aqrrkzaenB24: 1 grossly positivelymph node, jnuhzpgmpU93: 1 grossly positive lymph node, gtwymilalQ22: 1 lymph node, xstrcdyaF81: 1 lymph node, bluwlzaoU30-D77: 1 lymph node, serially putuworfgT11: 1 lymph node, ducnfdvbyfcuN64: 1 lymph node, degzpebjmP82: 1 lymph node, pmdozrdlsC08-Q93 : 1 lymph node bisected in each vwcwtgprW98: 1lymph node, jlxshtazjB59: 1 lymph node, rzdoatznuZ69-R60: 1 lymph node, pwfltruprdxdD28: 5 intact lymph ocaubP87: 4 intact lymph lwmvpM56 : 4 intact lymph hsdljH50: Small bowel to sigmoid diblkA34-T85:Small bowel to sigmoid colon, continuous tyycgakrK50: Small bowel to sigmoid vvhrwO09-V51: Sigmoid mass to pericolic fatB 56: 6 intact lymph cipobG09-C52: Possible appendixC. Ureter, Right.Received fresh labeled with the patient's name, medical record number and "right periureteral tissue" is a 7.5 x 5.5 x 2 cm aggregate of multiple pink-yellow, conn-red firm tissue fragments. The specimen is serially sectioned to reveal areas of fibrosis. No gross lesions are identified. Graduate Internship sections aresubmitted in C1-C7. D. colon.Received fresh labeled with the patient's name, medical record number and "colon" is an unoriented segment of colon measuring 2.4 cm in length and 3 cm in diameter. One endis stapled and the opposite end is open. There is a small amount of attached, edematous mesentery. The specimen is sectioned to reveal rodriguez-pink, smooth mucosa with normal architecture. The wall thickness ranges 0.3-0.6 cm. There is a 0.3 cm conn lymph node. Graduate Internship sections are submitted.Section code:D1: Entire open marginD2: Graduate Internship of stapled margin, en faceD3: Colon with thickened wallD4: 1 intact lymph nodeChelsea LUISA Hicks PA (ASCP)boarding mother. Bladder.BLADDER MARGIN:-FIBROMUSCULAR TISSUE WITH CHRONIC INFLAMMATION-NEGATIVE FOR OBVIOUS CARCINOMAReported by Dr. Sepulveda and Dr. Cade to Dr. Christian james 11/04/2022, at 1144.[facility], Department of Pathology, [address] [place] [address], [facility], [address] [place] [address], [facility], [address] [place] [address], Ghqar [id number] 09:57:20 Test Item Value Reference Range Interpretation Comments Result (test code = 6463-4) No growth ELINA (test code = ELINA) [facility]2023-02-22 09:57:20 Test Item Value Reference Range Interpretation Comments Result (test code = 6463-4) No growth ELINA (test code = ELINA) [facility]2023-02-22 09:57:20 Test Item Value Reference Range Interpretation Comments Result (test code = 6463-4) No growth ELINA (test code = ELINA) [facility]2023-02-22 09:57:20 Test Item Value Reference Range Interpretation Comments Result (test code = 6463-4) No growth ELINA (test code = ELINA) [facility]2023-02-22 09:57:20 Test Item Value Reference Range Interpretation Comments Result (test code = 6463-4) No growth ELINA (test code = ELINA) [facility]2023-02-22 09:57:20 Test Item Value Reference Range Interpretation Comments Result (test code = 6463-4) No growth ELINA (test code = ELINA) [facility]2023-02-22 09:57:20 Test Item Value Reference Range Interpretation Comments Result (test code = 6463-4) No growth ELINA (test code = ELINA) [facility]2023-02-22 09:57:20 Test Item Value Reference Range Interpretation Comments Result (test code = 6463-4) No growth ELINA (test code = ELINA) [facility] [id number] 09:57:20 Test Item Value Reference Range Interpretation Comments Result (test code = 6463-4) No growth ELINA (test code = ELINA) [facility] [id number] 09:57:20 Test Item Value Reference Range Interpretation Comments CULTURE (BEAKER) (test code = 1095) No growth POC-Glucose [id number] 16:08:35 Test Item Value Reference Range Interpretation Comments POC-Glucose Meter (test 119 mg/dL 70-110 H : TE STED AT [facility] code = 1538) [address] [place] [address], 770 30: Rn Neonatal Icu/Techni franklin ID = [id number] for Cortés, Charnita Lab Interpretation (test Abnormal code = 84455-5) [facility]-Glucose [id number] 16:08:35 Test Item Value Reference Range Interpretation Comments POC-Glucose Meter (test 119 mg/dL 70-110 H : TE STED AT [facility] code = 1538) [address] [place] [address], 770 30: Rn Neonatal Icu/Techni franklin ID = [id number] for Cortés, Charnita Lab Interpretation (test Abnormal code = 69892-5) [facility] [id number] 16:08:35 Test Item Value Reference Range Interpretation Comments POC-Glucose Meter (test 119 mg/dL 70-110 H : TE STED AT [facility] code = 1538) [address] [place] [address], 770 30: Rn Neonatal Icu/Techni franklin ID = [id number] for Cortés, Charnita Lab Interpretation (test Abnormal code = 98855-7) [facility] [id number] 16:08:35 Test Item Value Reference Range Interpretation Comments POC-Glucose Meter (test 119 mg/dL 70-110 H : TE STED AT [facility] code = 1538) [address] [place] [address], 770 30: Rn Neonatal Icu/Techni franklin ID = [id number] for Cortés, Charnita Lab Interpretation (test Abnormal code = 09563-3) [facility]-Glucose [id number] 16:08:35 Test Item Value Reference Range Interpretation Comments POC-Glucose Meter (test 119 mg/dL 70-110 H : TE STED AT [facility] code = 1538) [address] [place] [address], [facility] 30: Rn Neonatal Icu/Techni franklin ID = [id number] for Cortés, Charnita Lab Interpretation (test Abnormal code = 61371-1) [facility]-Glucose [id number] 16:08:35 Test Item Value Reference Range Interpretation Comments POC-Glucose Meter (test 119 mg/dL 70-110 H : TE STED AT [facility] code = 1538) [address] [place] [address], [facility] 30: Rn Neonatal Icu/Techni franklin ID = [id number] for Cortés, Charnita Lab Interpretation (test Abnormal code = 42376-0) [facility]-Glucose [id number] 16:08:35 Test Item Value Reference Range Interpretation Comments POC-Glucose Meter (test 119 mg/dL 70-110 H : TE STED AT [facility] code = 1538) [address] [place] [address], [facility] 30: Rn Neonatal Icu/Techni franklin ID = [id number] for Cortés, Charnita Lab Interpretation (test Abnormal code = 78092-0) [facility]-Glucose [id number] 16:08:35 Test Item Value Reference Range Interpretation Comments POC-Glucose Meter (test 119 mg/dL 70-110 H : TE STED AT [facility] code = 1538) [address] [place] [address], [facility] 30: Rn Neonatal Icu/Techni franklin ID = [id number] for Cortés, Charnita Lab Interpretation (test Abnormal code = 31324-0) [facility]-Glucose [id number] 16:08:35 Test Item Value Reference Range Interpretation Comments POC-Glucose Meter (test 119 mg/dL 70-110 H : TE STED AT [facility] code = 1538) [address] [place] [address], [facility] [facility] 30: Rn Neonatal Icu/Techni franklin ID = [id number] for Cortés, Charnita Lab Interpretation (test Abnormal code = 63890-3) [facility]-GLUCOSE [id number] 16:08:35 Test Item Value Reference Range Interpretation Comments POC-GLUCOSE METER 119 mg/dL 70-110 H : TESTED A T [facility] 6720 (BEAKER) (test code = [place], 1538) [address]: Rn Neonatal Icu/Techni franklin ID = [id number] for Maura Cruz Creatinine Peritoneal [id number] 12:50:33 Test Item Value Reference Range Interpretation Comments Creatinine, Peritoneal See scanned report. Fluid (test code = 69718-3) ELINA (test code = ELINA) See scanned report. [facility] Peritoneal [id number] 12:50:33 Test Item Value Reference Range Interpretation Comments Creatinine, Peritoneal See scanned report. Fluid (test code = 58295-8) ELINA (test code = ELINA) See scanned report. [facility] Peritoneal [id number] 12:50:33 Test Item Value Reference Range Interpretation Comments Creatinine, Peritoneal See scanned report. Fluid (test code = 97747-5) ELINA (test code = ELINA) See scanned report. [facility] Peritoneal [id number] 12:50:33 Test Item Value Reference Range Interpretation Comments Creatinine, Peritoneal See scanned report. Fluid (test code = 43147-0) ELINA (test code = ELINA) See scanned report. [facility] Peritoneal [id number] 12:50:33 Test Item Value Reference Range Interpretation Comments Creatinine, Peritoneal See scanned report. Fluid (test code = 46087-8) ELINA (test code = ELINA) See scanned report. [facility] [id number] 12:50:33 Test Item Value Reference Range Interpretation Comments Creatinine, Peritoneal See scanned report. Fluid (test code = 02241-0) ELINA (test code = ELINA) See scanned report. [facility] Peritoneal [id number] 12:50:33 Test Item Value Reference Range Interpretation Comments Creatinine, Peritoneal See scanned report. Fluid (test code = 22471-4) ELINA (test code = ELINA) See scanned report. [facility] Peritoneal [id number] 12:50:33 Test Item Value Reference Range Interpretation Comments Creatinine, Peritoneal See scanned report. Fluid (test code = 47457-4) ELINA (test code = ELINA) See scanned report. [facility] [id number] 12:50:33 Test Item Value Reference Range Interpretation Comments Creatinine, Peritoneal See scanned report. Fluid (test code = 03976-6) ELINA (test code = ELINA) See scanned report. [facility] [id number] 12:18:10 Test Item Value Reference Range Interpretation Comments POC-GLUCOSE METER 118 mg/dL 70-110 H : TESTED A T [facility] 6720 (BEAKER) (test code = [facility], 1538) 80[address]: Rn Neonatal Icu/Techni franklin ID = [id number] for Hero desireMaura POCT-GLUCOSE [id number] 08:08:06 Test Item Value Reference Range Interpretation Comments POC-GLUCOSE METER 96 mg/dL 70-110 : TESTED A T [facility] 6720 (BEAKER) (test code = [facility], 1538) 92605: Rn Neonatal Icu/Techni franklin ID = [id number] for Maura Cortés BASIC METABOLIC [id number] 05:36:36 Test Item Value Reference Range Interpretation Comments SODIUM (BEAKER) 140 meq/L 136-145 (test code = 381) POTASSIUM 4.2 meq/L 3.5-5.1 (BEAKER) (test code = 379) CHLORIDE (BEAKER) 107 meq/L 98-107 (test code = 382) CO2 (BEAKER) 24 meq/L 22-29 (test code = 355) BLOOD UREA 14 mg/dL 7-21 NITROGEN (BEAKER) (test code = 354) CREATININE 2.10 mg/dL 0.57-1.25 H (BEAKER) (test code = 358) GLUCOSE RANDOM 95 mg/dL 70-105 (BEAKER) (test code = 652) CALCIUM (BEAKER) 7.7 mg/dL 8.4-10.2 L (test code = 697) EGFR (BEAKER) 35 Interpretatio n of eGFR (test code = mL/min/1.73 values Stage De scription 1092) sq m Result G1 Mary l or high >=90 G2 Mildly decreased 60-89 G3a Mildl y to moderately 45-5 9 G3b Moderately to s everely 30-44 G4 Severl y decreased 15-29 G5 Kidney failure <15Reported eGF R is based on the CKD-EPI 2020 equation that d oes not use a race coefficientEsti mated GFR is not as accur ate as Creatinine Mary dodge in predicting glom erular filtration rate . Estimated GFR is not appl icable for dialysis patien ts Rn Neonatal Icu ID - PIAYA LCBC W/PLT COUNT & AUTO [id number] 04:05:36 Test Item Value Reference Range Interpretation Comments WHITE BLOOD CELL COUNT (BEAKER) 8.1 K/ L 3.5-10.5 (test code = 775) RED BLOOD CELL COUNT (BEAKER) 4.03 M/ L 4.63-6.08 L (test code = 761) HEMOGLOBIN (BEAKER) (test code = 9.3 GM/DL 13.7-17.5 L 410) HEMATOCRIT (BEAKER) (test code = 30.7 % 40.1-51.0 L 411) MEAN CORPUSCULAR VOLUME (BEAKER) 76 fL 79-92 L (test code = 753) MEAN CORPUSCULAR HEMOGLOBIN 23.1 pg 25.7-32.2 L (BEAKER) (test code = 751) MEAN CORPUSCULAR HEMOGLOBIN CONC 30.3 GM/DL 32.3-36.5 L (BEAKER) (test code = 752) RED CELL DISTRIBUTION WIDTH 18.1 % 11.6-14.4 H (BEAKER) (test code = 412) PLATELET COUNT (BEAKER) (test 297 K/CU MM 150-450 code = 756) MEAN PLATELET VOLUME (BEAKER) 9.1 fL 9.4-12.4 L (test code = 754) NUCLEATED RED BLOOD CELLS 0 /100 WBC 0-0 (BEAKER) (test code = 413) NEUTROPHILS RELATIVE PERCENT 60 % (BEAKER) (test code = 429) LYMPHOCYTES RELATIVE PERCENT 28 % (BEAKER) (test code = 430) MONOCYTES RELATIVE PERCENT 7 % (BEAKER) (test code = 431) EOSINOPHILS RELATIVE PERCENT 4 % (BEAKER) (test code = 432) BASOPHILS RELATIVE PERCENT 1 % (BEAKER) (test code = 437) NEUTROPHILS ABSOLUTE COUNT 4.88 K/ L 1.78-5.38 (BEAKER) (test code = 670) LYMPHOCYTES ABSOLUTE COUNT 2.23 K/ L 1.32-3.57 (BEAKER) (test code = 414) MONOCYTES ABSOLUTE COUNT (BEAKER) 0.60 K/ L 0.30-0.82 (test code = 415) EOSINOPHILS ABSOLUTE COUNT 0.31 K/ L 0.04-0.54 (BEAKER) (test code = 416) BASOPHILS ABSOLUTE COUNT (BEAKER) 0.05 K/ L 0.01-0.08 (test code = 417) IMMATURE GRANULOCYTES-RELATIVE 0.20 % 0.00-1.00 PERCENT (BEAKER) (test code = 2801) POCT-GLUCOSE [id number] 00:28:16 Test Item Value Reference Range Interpretation Comments POC-GLUCOSE METER 106 mg/dL 70-110 : TESTED A T [facility] 6720 (BEAKER) (test code = [facility], 1538) 18513: Rn Neonatal Icu/Techni franklin ID = [id number] for VONDA WILL POCT-GLUCOSE [id number] 17:10:21 Test Item Value Reference Range Interpretation Comments POC-GLUCOSE METER 134 mg/dL 70-110 H : TESTED A T [facility] 6720 (BEAKER) (test code = [facility], 1538) 38110: Rn Neonatal Icu/Techni franklin ID = [id number] for RA MOS, HERMINIO POCT-GLUCOSE [id number] 11:36:00 Test Item Value Reference Range Interpretation Comments POC-GLUCOSE METER 117 mg/dL 70-110 H : TESTED A T [facility] 6720 (BEAKER) (test code = [facility], 1538) 43179: Rn Neonatal Icu/Techni franklin ID = [id number] for RA MOS, HERMINIO POCT-GLUCOSE [id number] 07:35:46 Test Item Value Reference Range Interpretation Comments POC-GLUCOSE METER 107 mg/dL 70-110 : TESTED A T [facility] 6720 (BEAKER) (test code = [facility], 1538) 87076: Rn Neonatal Icu/Techni franklin ID = [id number] for RA MOS, HERMINIO BASIC METABOLIC [id number] 06:21:43 Test Item Value Reference Range Interpretation Comments SODIUM (BEAKER) 138 meq/L 136-145 (test code = 381) POTASSIUM 4.1 meq/L 3.5-5.1 (BEAKER) (test code = 379) CHLORIDE (BEAKER) 105 meq/L 98-107 (test code = 382) CO2 (BEAKER) 26 meq/L 22-29 (test code = 355) BLOOD UREA 17 mg/dL 7-21 NITROGEN (BEAKER) (test code = 354) CREATININE 2.27 mg/dL 0.57-1.25 H (BEAKER) (test code = 358) GLUCOSE RANDOM 129 mg/dL 70-105 H (BEAKER) (test code = 652) CALCIUM (BEAKER) 7.5 mg/dL 8.4-10.2 L (test code = 697) EGFR (BEAKER) 32 Interpretatio n of eGFR (test code = mL/min/1.73 values Stage De scription 1092) sq m Result G1 Mary l or high >=90 G2 Mildly decreased 60-89 G3a Mildl y to moderately 45-5 9 G3b Moderately to s everely 30-44 G4 Severl y decreased 15-29 G5 Kidney failure <15Reported eGF R is based on the CKD-EPI 2020 equation that d oes not use a race coefficientEsti mated GFR is not as accur ate as Creatinine Mary echo in predicting glom erular filtration rate . Estimated GFR is not appl icable for dialysis patien ts Rn Neonatal Icu ID - PIAYA LCBC W/PLT COUNT & AUTO [id number] 05:53:00 Test Item Value Reference Range Interpretation Comments WHITE BLOOD CELL COUNT (BEAKER) 8.8 K/ L 3.5-10.5 (test code = 775) RED BLOOD CELL COUNT (BEAKER) 4.03 M/ L 4.63-6.08 L (test code = 761) HEMOGLOBIN (BEAKER) (test code = 9.3 GM/DL 13.7-17.5 L 410) HEMATOCRIT (BEAKER) (test code = 31.0 % 40.1-51.0 L 411) MEAN CORPUSCULAR VOLUME (BEAKER) 77 fL 79-92 L (test code = 753) MEAN CORPUSCULAR HEMOGLOBIN 23.1 pg 25.7-32.2 L (BEAKER) (test code = 751) MEAN CORPUSCULAR HEMOGLOBIN CONC 30.0 GM/DL 32.3-36.5 L (BEAKER) (test code = 752) RED CELL DISTRIBUTION WIDTH 18.4 % 11.6-14.4 H (BEAKER) (test code = 412) PLATELET COUNT (BEAKER) (test 310 K/CU MM 150-450 code = 756) MEAN PLATELET VOLUME (BEAKER) 9.6 fL 9.4-12.4 (test code = 754) NUCLEATED RED BLOOD CELLS 0 /100 WBC 0-0 (BEAKER) (test code = 413) NEUTROPHILS RELATIVE PERCENT 68 % (BEAKER) (test code = 429) LYMPHOCYTES RELATIVE PERCENT 22 % (BEAKER) (test code = 430) MONOCYTES RELATIVE PERCENT 8 % (BEAKER) (test code = 431) EOSINOPHILS RELATIVE PERCENT 2 % (BEAKER) (test code = 432) BASOPHILS RELATIVE PERCENT 1 % (BEAKER) (test code = 437) NEUTROPHILS ABSOLUTE COUNT 5.94 K/ L 1.78-5.38 H (BEAKER) (test code = 670) LYMPHOCYTES ABSOLUTE COUNT 1.92 K/ L 1.32-3.57 (BEAKER) (test code = 414) MONOCYTES ABSOLUTE COUNT (BEAKER) 0.68 K/ L 0.30-0.82 (test code = 415) EOSINOPHILS ABSOLUTE COUNT 0.19 K/ L 0.04-0.54 (BEAKER) (test code = 416) BASOPHILS ABSOLUTE COUNT (BEAKER) 0.04 K/ L 0.01-0.08 (test code = 417) IMMATURE GRANULOCYTES-RELATIVE 0.30 % 0.00-1.00 PERCENT (BEAKER) (test code = 2801) CT, [id number] 01:02:00Compare to same day KUB - large free air, recent Open surgery 2/16 (POD2).Need oral contrastUnlisted Reason for Exam - Click Yes and Enter Reason Below->NoProtocol Please Specify:->Standard Prot ocolWill this procedure require oral contrast?->Yes [facility] CENTERName: MIRANDADOCRETE : 1960 Sex: MFINAL REPORT CT of the abdomen and pelvis History: Peritonitis or perforation suspected Comparison: Abdominal radiograph from earlier 11/06/2022, CT chest/abdomen/pelvis from 10/06/2022.Technique: Multidetector CT scanning of the abdomen and pelvis was performed from the level of the lung bases to the inferior pubic ramus, WITHOUT intravenous administration of non-ionic contrast and WITHOUT oral contrast. Coronal and sagittal reformats were reviewed. DOSE REDUCTION: The examination was performed according to departmental dose- optimization program which includes automated exposure control, adjustment of the mA and/or kV according to patient size and/or use of iterative reconstruction technique. Findings: There are small bilateral pleural effusions with associated compressive atelectasis of the lower lobes. Moderate volume of pneumoperitoneum identified as noted on the recent priorabdominal radiograph. Findings may reflect the recent surgical procedure with midline skin angela no stuart in place. Viscus perforation cannot be entirely excluded. Trace amount of scattered free fluid noted within the abdomen. No organized/drainable fluid collection is identified. Surgical drainage catheter identified entering from the right lower quadrant with tip terminating within the pelvis. The liver is normal in size and attenuation on this noncontrast enhanced examination. The gallbladder is unremarkable. There is no biliary ductal dilatation. The stomach, spleen, pancreas, and bilateral adrenal glands demonstrate an unremarkable noncontrast appearance. The kidneys are normal in size and location. A right double-J ureteral stent is identified with proximal pigtail within the upper collecting system and distal pigtail within the urinary bladder. There is no evidence for nephrolithiasis or hydronephrosis. The urinary bladder is collapsed around a Sandoval catheter. The abdominal aorta is normal course and caliber with mild atherosclerotic calcifications. The IVC is normal in caliber. Please note evaluation the bowel is limited without the use of enteric contrast material. There are extensivepostsurgical changes of bowel from suspected colostomy takedown, low anterior resection with colorectal anastomosis, right colectomy, and left lower quadrant ileostomy. Correlation with operative report is recommended. The visualized loops of small and large bowel demonstrate no evidence of obstruction or inflammation. No abnormally enlarged lymph nodes are identified within the abdomen or pelvis. The osseous structures demonstrate no evidence for acute fracture or destructive process. There is diffuse body wall edema present. IMPRESSION:Moderate volume of pneumoperitoneum which may relate to the recent surgical procedure. Viscus perforation is not entirely excluded and correlation with symptomatology is recommended. No organized/drainable fluid collection is identified. Extensive postsurgical changes as detailed above. Right ureteral stent identified in place. Diffuse body wall edema. Additional findings as above. Signed: Donny Villanueva MDReport Verified Date/Time: 11/07/2022 01:02:28 -GLUCOSE [id number] 21:34:54 Test Item Value Reference Range Interpretation Comments POC-GLUCOSE METER 106 mg/dL 70-110 : TESTED A T [facility] 6720 (BEAKER) (test code = MELONYMARJAN Ryan [facility], 1538) 31246: Rn Neonatal Icu/Techni franklin ID = [id number] for VONDA WILL Urinalysis Microscopic [id number] 18:09:59 Test Item Value Reference Range Interpretation Comments RBC, UA (test 185 See_Comment [Automated me ssage] code = 91416-9) The system [facility] generated this result transmit stuart reference range : /HPF. The refer ence range was not u sed to interpret th is result as normal/abnormal . WBC, UA (test 0 See_Comment [Automated me ssage] code = 5821-4) The system [facility] generated this result transmit stuart reference range : /HPF. The refer ence range was not u sed to interpret th is result as normal/abnormal . Mucus (test code Rare = 8247-9) Squam Epithel, UA 1 See_Comment [Automate d message] (test code = The system [facility] 20468-7) generated this result transmit stuart reference range : /HPF. The refer ence range was not u sed to interpret th is result as normal/abnormal . Hyaline Casts, UA 18 See_Comment [Automate d message] (test code = The system [facility] 71034-9) generated this result transmit stuart reference range : /LPF. The refer ence range was not u sed to interpret th is result as normal/abnormal . ELINA (test code = Rn Neonatal Icu ID - ELINA) [facility] [id number] 18:09:59 Test Item Value Reference Range Interpretation Comments RBC, UA (test 1851 See_Comment [Automated me ssage] code = 90727-8) The system [employer] generated this result transmit stuart reference range : /HPF. The refer ence range was not u sed to interpret th is result as normal/abnormal . WBC, UA (test 0 See_Comment [Automated me ssage] code = 5821-4) The system [employer] generated this result transmit stuart reference range : /HPF. The refer ence range was not u sed to interpret th is result as normal/abnormal . Mucus (test code Rare = 8247-9) Squam Epithel, UA 1 See_Comment [Automate d message] (test code = The system [employer] 53580-4) generated this result transmit stuart reference range : /HPF. The refer ence range was not u sed to interpret th is result as normal/abnormal . Hyaline Casts, UA 18 See_Comment [Automate d message] (test code = The system [employer] 28147-6) generated this result transmit stuart reference range : /LPF. The refer ence range was not u sed to interpret th is result as normal/abnormal . ELINA (test code = Rn Neonatal Icu ID - ELINA) [facility] [id number] 18:09:59 Test Item Value Reference Range Interpretation Comments RBC, UA (test 1851 See_Comment [Automated me ssage] code = 05509-4) The system [employer] generated this result transmit stuart reference range : /HPF. The refer ence range was not u sed to interpret th is result as normal/abnormal . WBC, UA (test 0 See_Comment [Automated me ssage] code = 5821-4) The system [employer] generated this result transmit stuart reference range : /HPF. The refer ence range was not u sed to interpret th is result as normal/abnormal . Mucus (test code Rare = 8247-9) Squam Epithel, UA 1 See_Comment [Automate d message] (test code = The system [employer] 10434-8) generated this result transmit stuart reference range : /HPF. The refer ence range was not u sed to interpret th is result as normal/abnormal . Hyaline Casts, UA 18 See_Comment [Automate d message] (test code = The system [facility] 74680-7) generated this result transmit stuart reference range : /LPF. The refer ence range was not u sed to interpret th is result as normal/abnormal . ELINA (test code = Rn Neonatal Icu ID - ELINA) [facility] [id number] 18:09:59 Test Item Value Reference Range Interpretation Comments RBC, UA (test 1851 See_Comment [Automated me ssage] code = 10784-7) The system [employer] generated this result transmit stuart reference range : /HPF. The refer ence range was not u sed to interpret th is result as normal/abnormal . WBC, UA (test 0 See_Comment [Automated me ssage] code = 5821-4) The system [employer] generated this result transmit stuart reference range : /HPF. The refer ence range was not u sed to interpret th is result as normal/abnormal . Mucus (test code Rare = 8247-9) Squam Epithel, UA 1 See_Comment [Automate d message] (test code = The system [facility] 37784-0) generated this result transmit stuart reference range : /HPF. The refer ence range was not u sed to interpret th is result as normal/abnormal . Hyaline Casts, UA 18 See_Comment [Automate d message] (test code = The system [facility] 12116-0) generated this result transmit stuart reference range : /LPF. The refer ence range was not u sed to interpret th is result as normal/abnormal . ELINA (test code = Rn Neonatal Icu ID - ELINA) [facility] [id number] 18:09:59 Test Item Value Reference Range Interpretation Comments RBC, UA (test 1851 See_Comment [Automated me ssage] code = 48226-6) The system [employer] generated this result transmit stuart reference range : /HPF. The refer ence range was not u sed to interpret th is result as normal/abnormal . WBC, UA (test 0 See_Comment [Automated me ssage] code = 5821-4) The system [employer] generated this result transmit stuatr reference range : /HPF. The refer ence range was not u sed to interpret th is result as normal/abnormal . Mucus (test code Rare = 8247-9) Squam Epithel, UA 1 See_Comment [Automate d message] (test code = The system [facility] [employer] 87950-4) generated this result transmit stuart reference range : /HPF. The refer ence range was not u sed to interpret th is result as normal/abnormal . Hyaline Casts, UA 18 See_Comment [Automate d message] (test code = The system [facility] [employer] 18310-0) generated this result transmit stuart reference range : /LPF. The refer ence range was not u sed to interpret th is result as normal/abnormal . ELINA (test code = Rn Neonatal Icu ID - ELINA) [facility] [id number] 18:09:59 Test Item Value Reference Range Interpretation Comments RBC, UA (test 1851 See_Comment [Automated me ssage] code = 08981-0) The system [employer] generated this result transmit stuart reference range : /HPF. The refer ence range was not u sed to interpret th is result as normal/abnormal . WBC, UA (test 0 See_Comment [Automated me ssage] code = 5821-4) The system [facility] generated this result transmit stuart reference range : /HPF. The refer ence range was not u sed to interpret th is result as normal/abnormal . Mucus (test code Rare = 8247-9) Squam Epithel, UA 1 See_Comment [Automate d message] (test code = The system [facility] [employer] 27392-6) generated this result transmit stuart reference range : /HPF. The refer ence range was not u sed to interpret th is result as normal/abnormal . Hyaline Casts, UA 18 See_Comment [Automate d message] (test code = The system [facility] [employer] 74738-9) generated this result transmit stuart reference range : /LPF. The refer ence range was not u sed to interpret th is result as normal/abnormal . ELINA (test code = Rn Neonatal Icu ID - ELINA) [facility] [id number] 18:09:59 Test Item Value Reference Range Interpretation Comments RBC, UA (test 1851 See_Comment [Automated me ssage] code = 39285-9) The system [facility] generated this result transmit stuart reference range : /HPF. The refer ence range was not u sed to interpret th is result as normal/abnormal . WBC, UA (test 0 See_Comment [Automated me ssage] code = 5821-4) The system [facility] generated this result transmit stuart reference range : /HPF. The refer ence range was not u sed to interpret th is result as normal/abnormal . Mucus (test code Rare = 8247-9) Squam Epithel, UA 1 See_Comment [Automate d message] (test code = The system [employer] 61368-0) generated this result transmit stuart reference range : /HPF. The refer ence range was not u sed to interpret th is result as normal/abnormal . Hyaline Casts, UA 18 See_Comment [Automate d message] (test code = The system [facility] [employer] 45611-8) generated this result transmit stuart reference range : /LPF. The refer ence range was not u sed to interpret th is result as normal/abnormal . ELINA (test code = Rn Neonatal Icu ID - ELINA) [facility] [id number] 18:09:59 Test Item Value Reference Range Interpretation Comments RBC, UA (test 185 See_Comment [Automated me ssage] code = 86992-9) The system [employer] generated this result transmit stuart reference range : /HPF. The refer ence range was not u sed to interpret th is result as normal/abnormal . WBC, UA (test 0 See_Comment [Automated me ssage] code = 5821-4) The system [facility] generated this result transmit stuart reference range : /HPF. The refer ence range was not u sed to interpret th is result as normal/abnormal . Mucus (test code Rare = 8247-9) Squam Epithel, UA 1 See_Comment [Automate d message] (test code = The system [employer] 85560-3) generated this result transmit stuart reference range : /HPF. The refer ence range was not u sed to interpret th is result as normal/abnormal . Hyaline Casts, UA 18 See_Comment [Automate d message] (test code = The system [employer] 57016-2) generated this result transmit stuart reference range : /LPF. The refer ence range was not u sed to interpret th is result as normal/abnormal . ELINA (test code = Rn Neonatal Icu ID - ELINA) [facility] [id number] 18:09:59 Test Item Value Reference Range Interpretation Comments RBC, UA (test 1852 See_Comment [Automated me ssage] code = 46130-7) The system [facility] generated this result transmit stuart reference range : /HPF. The refer ence range was not u sed to interpret th is result as normal/abnormal . WBC, UA (test 0 See_Comment [Automated me ssage] code = 5821-4) The system [facility] generated this result transmit stuart reference range : /HPF. The refer ence range was not u sed to interpret th is result as normal/abnormal . Mucus (test code Rare = 8247-9) Squam Epithel, UA 1 See_Comment [Automate d message] (test code = The system [employer] 23366-7) generated this result transmit stuart reference range : /HPF. The refer ence range was not u sed to interpret th is result as normal/abnormal . Hyaline Casts, UA 18 See_Comment [Automate d message] (test code = The system [place] 58005-7) generated this result transmit stuart reference range : /LPF. The refer ence range was not u sed to interpret th is result as normal/abnormal . ELINA (test code = Rn Neonatal Icu ID - ELINA) [facility] [id number] 18:09:59 Test Item Value Reference Range Interpretation Comments RBC UA (BEAKER) (test code = 519) 1852 /HPF WBC UA (BEAKER) (test code = 520) 0 /HPF MUCUS (BEAKER) (test code = 1574) Rare SQUAMOUS EPITHELIAL (BEAKER) (test 1 /HPF code = 516) HYALINE CASTS (BEAKER) (test code = 18 /LPF 514) Rn Neonatal Icu ID - techUrinalysis with Microscopic If [id number] 18:09:53 Test Item Value Reference Range Interpretation Comments Color, UA (test code = [place] 5778-6) Clarity, UA (test code = Haz[place] 5767-9) Specific [place], UA (test 1.014 1.001-1.035 code = 5811-5) pH, UA (test code = 6.0 5.0-8.0 5803-2) Protein, UA (test code = 200 mg/dL Negative A 46853-0) Glucose, UA (test code = 50 mg/dL Negative A 365) Ketones, UA (test code = Negative Negative 2514-8) Bilirubin, UA (test code = Negative Negative 52459-1) Blood, UA (test code = Large Negative A 77496-2) Nitrite, UA (test code = Negative Negative 5802-4) Leukocytes, UA (test code Moderate Negative A = 5799-2) Urobilinogen, UA (test 0.2 0.2-1.0 code = 82400-4) Specimen Source (test code = 2795) ELINA (test code = ELINA) Rn Neonatal Icu ID - [auto]Rn Neonatal Icu ID - tech Lab Interpretation (test Abnormal code = 44535-0) [facility] [id number] 18:09:53 Test Item Value Reference Range Interpretation Comments Color, UA (test code = [place] 5778-6) Clarity, UA (test code = Hazy 5767-9) Specific [place], UA (test 1.014 1.001-1.035 code = 5811-5) pH, UA (test code = 6.0 5.0-8.0 5803-2) Protein, UA (test code = 200 mg/dL Negative A 48239-6) Glucose, UA (test code = 50 mg/dL Negative A 365) Ketones, UA (test code = Negative Negative 2514-8) Bilirubin, UA (test code = Negative Negative 08817-7) Blood, UA (test code = Large Negative A 17669-5) Nitrite, UA (test code = Negative Negative 5802-4) Leukocytes, UA (test code Moderate Negative A = 5799-2) Urobilinogen, UA (test 0.2 0.2-1.0 code = 70886-7) Specimen Source (test code = 2795) ELINA (test code = ELINA) Rn Neonatal Icu ID - [auto]Rn Neonatal Icu ID - tech Lab Interpretation (test Abnormal code = 38289-2) [facility] [id number] 18:09:53 Test Item Value Reference Range Interpretation Comments Color, UA (test code = [place] 5778-6) Clarity, UA (test code = Hazy 5767-9) Specific [place], UA (test 1.014 1.001-1.035 code = 5811-5) pH, UA (test code = 6.0 5.0-8.0 5803-2) Protein, UA (test code = 200 mg/dL Negative A 73094-3) Glucose, UA (test code = 50 mg/dL Negative A 365) Ketones, UA (test code = Negative Negative 2514-8) Bilirubin, UA (test code = Negative Negative 74254-6) Blood, UA (test code = Large Negative A 05031-6) Nitrite, UA (test code = Negative Negative 5802-4) Leukocytes, UA (test code Moderate Negative A = 5799-2) Urobilinogen, UA (test 0.2 0.2-1.0 code = 59344-5) Specimen Source (test code = 2795) ELINA (test code = ELINA) Rn Neonatal Icu ID - [auto]Rn Neonatal Icu ID - tech Lab Interpretation (test Abnormal code = 29330-3) [facility] [id number] 18:09:53 Test Item Value Reference Range Interpretation Comments Color, UA (test code = [place] 5778-6) Clarity, UA (test code = Hazy 5767-9) Specific [place], UA (test 1.014 1.001-1.035 code = 5811-5) pH, UA (test code = 6.0 5.0-8.0 5803-2) Protein, UA (test code = 200 mg/dL Negative A 91632-8) Glucose, UA (test code = 50 mg/dL Negative A 365) Ketones, UA (test code = Negative Negative 2514-8) Bilirubin, UA (test code = Negative Negative 00001-7) Blood, UA (test code = Large Negative A 46458-3) Nitrite, UA (test code = Negative Negative 5802-4) Leukocytes, UA (test code Moderate Negative A = 5799-2) Urobilinogen, UA (test 0.2 0.2-1.0 code = 97702-4) Specimen Source (test code = 2795) ELINA (test code = ELINA) Rn Neonatal Icu ID - [auto]Rn Neonatal Icu ID - tech Lab Interpretation (test Abnormal code = 78610-1) [facility] [id number] 18:09:53 Test Item Value Reference Range Interpretation Comments Color, UA (test code = [place] 5778-6) Clarity, UA (test code = Hazy 5767-9) Specific [place], UA (test 1.014 1.001-1.035 code = 5811-5) pH, UA (test code = 6.0 5.0-8.0 5803-2) Protein, UA (test code = 200 mg/dL Negative A 05923-7) Glucose, UA (test code = 50 mg/dL Negative A 365) Ketones, UA (test code = Negative Negative 2514-8) Bilirubin, UA (test code = Negative Negative 65162-1) Blood, UA (test code = Large Negative A 86960-5) Nitrite, UA (test code = Negative Negative 5802-4) Leukocytes, UA (test code Moderate Negative A = 5799-2) Urobilinogen, UA (test 0.2 0.2-1.0 code = 88635-9) Specimen Source (test code = 2795) ELINA (test code = ELINA) Rn Neonatal Icu ID - [auto]Rn Neonatal Icu ID - tech Lab Interpretation (test Abnormal code = 09407-4) [facility] [id number] 18:09:53 Test Item Value Reference Range Interpretation Comments Color, UA (test code = [place] 5778-6) Clarity, UA (test code = Hazy 5767-9) Specific [place], UA (test 1.014 1.001-1.035 code = 5811-5) pH, UA (test code = 6.0 5.0-8.0 5803-2) Protein, UA (test code = 200 mg/dL Negative A 05039-8) Glucose, UA (test code = 50 mg/dL Negative A 365) Ketones, UA (test code = Negative Negative 2514-8) Bilirubin, UA (test code = Negative Negative 51850-5) Blood, UA (test code = Large Negative A 55913-8) Nitrite, UA (test code = Negative Negative 5802-4) Leukocytes, UA (test code Moderate Negative A = 5799-2) Urobilinogen, UA (test 0.2 0.2-1.0 code = 17895-4) Specimen Source (test code = 2795) ELINA (test code = ELINA) Rn Neonatal Icu ID - [auto]Rn Neonatal Icu ID - tech Lab Interpretation (test Abnormal code = 81585-1) [facility] [id number] 18:09:53 Test Item Value Reference Range Interpretation Comments Color, UA (test code = [place] 5778-6) Clarity, UA (test code = Hazy 5767-9) Specific [place], UA (test 1.014 1.001-1.035 code = 5811-5) pH, UA (test code = 6.0 5.0-8.0 5803-2) Protein, UA (test code = 200 mg/dL Negative A 50658-0) Glucose, UA (test code = 50 mg/dL Negative A 365) Ketones, UA (test code = Negative Negative 2514-8) Bilirubin, UA (test code = Negative Negative 71041-3) Blood, UA (test code = Large Negative A 40932-9) Nitrite, UA (test code = Negative Negative 5802-4) Leukocytes, UA (test code Moderate Negative A = 5799-2) Urobilinogen, UA (test 0.2 0.2-1.0 code = 00675-6) Specimen Source (test code = 2795) ELINA (test code = ELINA) Rn Neonatal Icu ID - [auto]Rn Neonatal Icu ID - tech Lab Interpretation (test Abnormal code = 59900-9) [facility] [id number] 18:09:53 Test Item Value Reference Range Interpretation Comments Color, UA (test code = [place] 5778-6) Clarity, UA (test code = Hazy 5767-9) Specific [place], UA (test 1.014 1.001-1.035 code = 5811-5) pH, UA (test code = 6.0 5.0-8.0 5803-2) Protein, UA (test code = 200 mg/dL Negative A 51755-0) Glucose, UA (test code = 50 mg/dL Negative A 365) Ketones, UA (test code = Negative Negative 2514-8) Bilirubin, UA (test code = Negative Negative 07057-4) Blood, UA (test code = Large Negative A 15906-8) Nitrite, UA (test code = Negative Negative 5802-4) Leukocytes, UA (test code Moderate Negative A = 5799-2) Urobilinogen, UA (test 0.2 0.2-1.0 code = 09702-9) Specimen Source (test code = 2795) ELINA (test code = ELINA) Rn Neonatal Icu ID - [auto]Rn Neonatal Icu ID - tech Lab Interpretation (test Abnormal code = 44907-7) [facility] [id number] 18:09:53 Test Item Value Reference Range Interpretation Comments Color, UA (test code = [place] 5778-6) Clarity, UA (test code = Haz[place] 5767-9) Specific [place], UA (test 1.014 1.001-1.035 code = 5811-5) pH, UA (test code = 6.0 5.0-8.0 5803-2) Protein, UA (test code = 200 mg/dL Negative A 00624-5) Glucose, UA (test code = 50 mg/dL Negative A 365) Ketones, UA (test code = Negative Negative 2514-8) Bilirubin, UA (test code = Negative Negative 05965-4) Blood, UA (test code = Large Negative A 72958-3) Nitrite, UA (test code = Negative Negative 5802-4) Leukocytes, UA (test code Moderate Negative A = 5799-2) Urobilinogen, UA (test 0.2 0.2-1.0 code = 09514-2) Specimen Source (test code = 2795) ELINA (test code = ELINA) Rn Neonatal Icu ID - [auto]Rn Neonatal Icu ID - tech Lab Interpretation (test Abnormal code = 27893-9) [facility] IF [id number] 18:09:53 Test Item Value Reference Range Interpretation Comments COLOR (BEAKER) (test code = 470) [place] CLARITY (BEAKER) (test code = 469) [place] SPECIFIC GRAVITY UA (BEAKER) (test 1.014 1.001-1.035 code = 468) PH UA (BEAKER) (test code = 467) 6.0 5.0-8.0 PROTEIN UA (BEAKER) (test code = 200 mg/dL Negative A 464) GLUCOSE UA (BEAKER) (test code = 50 mg/dL Negative A 365) KETONES UA (BEAKER) (test code = Negative Negative 371) BILIRUBIN UA (BEAKER) (test code = Negative Negative 462) BLOOD UA (BEAKER) (test code = 461) Large Negative A NITRITE UA (BEAKER) (test code = Negative Negative 465) LEUKOCYTE ESTERASE UA (BEAKER) Moderate Negative A (test code = 466) UROBILINOGEN UA (BEAKER) (test code 0.2 0.2-1.0 = 463) SOURCE(BEAKER) (test code = 2795) Rn Neonatal Icu ID - [auto]Rn Neonatal Icu ID - techPOCT-GLUCOSE [id number] 16:21:29 Test Item Value Reference Range Interpretation Comments POC-GLUCOSE METER 123 mg/dL 70-110 H : TESTED A T [facility] 6720 (BEAKER) (test code = KIKI Connor [place], 1538) [address]: Rn Neonatal Icu/Techni franklin ID = [id number] for RA MOS, HERMINIO RAD, ABDOMEN/KUB, 1 VIEW [id number] 15:45:00Reason for exam:- >vomitingShould this be performed at the bedside?->Yes [facility] 1960 Sex: MFINAL REPORT TECHNIQUE: RAD, ABDOMEN/KUB, 1 VIEW AP INDICATION: vomiting. COMPARISON: 11/04/2022 at 4:54 PM FINDINGS:Right ureteral stent, as before. Surgical drain projecting over the right aspect of the pelvis, unchanged. Midline surgical skin angela are present. Decrease in gaseouswithin the soft tissues of the lower pelvis compared to the prior examination. Lucency within the right upper abdomen suggest a pneumoperitoneum. IMPRESSION: 1. Lucency within the right upper abdomen suspicious for pneumoperitoneum. This may be a postsurgical finding given midline surgical skin angela although perforated viscus is not excluded. Correlation with clinical abdominal examination is recommended and CT should be considered for further evaluation.2. Right ureteral stent remains unchanged.Surgical drain within the right aspect of the pelvis, as before Results discussed with Dr. Vaz at 3:24 PM on 11/06/2022. Signed: Yolis Canales MDReport Verified Date/Time: 11/06/2022 15:45:18 POCT-GLUCOSE [id number] 12:18:39 Test Item Value Reference Range Interpretation Comments POC-GLUCOSE METER 97 mg/dL 70-110 : TESTED A T [facility] 67[address] (LIZ) (test code = K[place], 1538) 11350: Rn Neonatal Icu/Techni franklin ID = [id number] for SHARON S, HERMINIO U/S, RENAL, [id number] 09:35:00Abdomen limited area? Add comment if clarification is needed.->Renal Reason for exam:->Please do renal and bladder ultrasound to evaluate for hydronephrosis, quantify free fluid in abdomen, and urinary retention [facility] 1960 Sex: MFINAL REPORT TECHNIQUE: Grayscale ultrasound of the kidneys and bladder. INDICATION: Please do renal and bladder ultrasound to evaluate for hydronephrosis, quantify free fluid in abdomen, and urinary retention. COMPARISON: CT from 10/06/2022. Ultrasound from 06/14/2022 FINDINGS: RIGHT KIDNEY: The right kidney measures 11.2 x 5.9 x 5.7 cm with a cortical thickness of 2 cm. Increased renal cortical echogenicity. No solid mass lesions. No hydronephrosis. Renal artery and vein are patent.A right interpolar hypoechoic renal lesion with posterior acoustic enhancement measures 1.4 cm and was present consistent with a simple renal cyst on the CT from 10/06/2022 LEFT KIDNEY: The left kidney measures 12.4 x 6.1 x 5.9 cm with a cortical thickness of 2 cm. Increased echogenicity. No solid masslesions. No hydronephrosis. Renal artery and vein are patent. The wedge-shaped areas of hyperdensityin the left kidney are concerning for pyelonephritis. BLADDER: Decompressed by a catheter. Trace perihepatic ascites. Small right pleural effusion IMPRESSION: 1.The wedge-shaped areas of hyperechogenicity in the left kidney are concerning for pyelonephritis. 2.The increased renal cortical echogenicityis concerning for medical renal disease. No hydronephrosis 3.Trace perihepatic ascites 4.Small rightpleural effusion Signed: Breanna Alvarado MDReport Verified Date/Time: 11/06/2022 09:35:08 Reading Location: [address] Body Reading Room POCT-GLUCOSE METER 2022-11-06 07:32:40 Test Item Value Reference Range Interpretation Comments POC-GLUCOSE METER 94 mg/dL 70-110 : TESTED A T [facility] 6720 (BEAKER) (test code = KIKI Ryan [facility], 1538) 45316: Rn Neonatal Icu/Techni franklin ID = [id number] for SHARON S, HERMINIO BASIC METABOLIC [id number] 05:54:39 Test Item Value Reference Range Interpretation Comments SODIUM (BEAKER) 136 meq/L 136-145 (test code = 381) POTASSIUM 3.9 meq/L 3.5-5.1 (BEAKER) (test code = 379) CHLORIDE (BEAKER) 104 meq/L 98-107 (test code = 382) CO2 (BEAKER) 23 meq/L 22-29 (test code = 355) BLOOD UREA 18 mg/dL 7-21 NITROGEN (BEAKER) (test code = 354) CREATININE 2.48 mg/dL 0.57-1.25 H (BEAKER) (test code = 358) GLUCOSE RANDOM 94 mg/dL 70-105 (BEAKER) (test code = 652) CALCIUM (BEAKER) 7.5 mg/dL 8.4-10.2 L (test code = 697) EGFR (BEAKER) 29 Interpretatio n of eGFR (test code = mL/min/1.73 values Stage De scription 1092) sq m Result G1 Mary l or high >=90 G2 Mildly decreased 60-89 G3a Mildl y to moderately 45-5 9 G3b Moderately to s everely 30-44 G4 Severl y decreased 15-29 G5 Kidney failure <15Reported eGF R is based on the CKD-EPI 2020 equation that d oes not use a race coefficientEsti mated GFR is not as accur ate as Creatinine Mary echo in predicting glom erular filtration rate . Estimated GFR is not appl icable for dialysis patien ts Rn Neonatal Icu ID - JORGECAIT [id number] 05:53:10 Test Item Value Reference Range Interpretation Comments MAGNESIUM (BEAKER) (test code = 1.9 mg/dL 1.6-2.6 627) Rn Neonatal Icu ID - JORGECAIT [id number] 05:53:10 Test Item Value Reference Range Interpretation Comments PHOSPHORUS (BEAKER) (test code = 4.1 mg/dL 2.3-4.7 604) Rn Neonatal Icu ID - AUTUMN LCBC W/PLT COUNT & AUTO [id number] 05:06:21 Test Item Value Reference Range Interpretation Comments WHITE BLOOD CELL COUNT (BEAKER) 11.9 K/ L 3.5-10.5 H (test code = 775) RED BLOOD CELL COUNT (BEAKER) 3.91 M/ L 4.63-6.08 L (test code = 761) HEMOGLOBIN (BEAKER) (test code = 9.0 GM/DL 13.7-17.5 L 410) HEMATOCRIT (BEAKER) (test code = 29.9 % 40.1-51.0 L 411) MEAN CORPUSCULAR VOLUME (BEAKER) 77 fL 79-92 L (test code = 753) MEAN CORPUSCULAR HEMOGLOBIN 23.0 pg 25.7-32.2 L (BEAKER) (test code = 751) MEAN CORPUSCULAR HEMOGLOBIN CONC 30.1 GM/DL 32.3-36.5 L (BEAKER) (test code = 752) RED CELL DISTRIBUTION WIDTH 18.3 % 11.6-14.4 H (BEAKER) (test code = 412) PLATELET COUNT (BEAKER) (test 300 K/CU MM 150-450 code = 756) MEAN PLATELET VOLUME (BEAKER) 10.1 fL 9.4-12.4 (test code = 754) NUCLEATED RED BLOOD CELLS 0 /100 WBC 0-0 (BEAKER) (test code = 413) NEUTROPHILS RELATIVE PERCENT 73 % (BEAKER) (test code = 429) LYMPHOCYTES RELATIVE PERCENT 19 % (BEAKER) (test code = 430) MONOCYTES RELATIVE PERCENT 7 % (BEAKER) (test code = 431) EOSINOPHILS RELATIVE PERCENT 1 % (BEAKER) (test code = 432) BASOPHILS RELATIVE PERCENT 0 % (BEAKER) (test code = 437) NEUTROPHILS ABSOLUTE COUNT 8.70 K/ L 1.78-5.38 H (BEAKER) (test code = 670) LYMPHOCYTES ABSOLUTE COUNT 2.23 K/ L 1.32-3.57 (BEAKER) (test code = 414) MONOCYTES ABSOLUTE COUNT (BEAKER) 0.82 K/ L 0.30-0.82 (test code = 415) EOSINOPHILS ABSOLUTE COUNT 0.09 K/ L 0.04-0.54 (BEAKER) (test code = 416) BASOPHILS ABSOLUTE COUNT (BEAKER) 0.03 K/ L 0.01-0.08 (test code = 417) IMMATURE GRANULOCYTES-RELATIVE 0.30 % 0.00-1.00 PERCENT (BEAKER) (test code = 2801) POCT-GLUCOSE [id number] 00:44:29 Test Item Value Reference Range Interpretation Comments POC-GLUCOSE METER 110 mg/dL 70-110 : TESTED A T [facility] 6720 (BEAKER) (test code = KIKI [place], 1538) 56781: Rn Neonatal Icu/Techni franklin ID = [id number] for VONDA WILL POCT-GLUCOSE [id number] 18:06:31 Test Item Value Reference Range Interpretation Comments POC-GLUCOSE METER 121 mg/dL 70-110 H : TESTED A T [facility] 6720 (BEAKER) (test code = KIKI [place], 1538) 50025: Rn Neonatal Icu/Techni franklin ID = [id number] for JACKIE HOLT BASIC METABOLIC [id number] 15:20:34 Test Item Value Reference Range Interpretation Comments SODIUM (BEAKER) 137 meq/L 136-145 (test code = 381) POTASSIUM 4.2 meq/L 3.5-5.1 (BEAKER) (test code = 379) CHLORIDE (BEAKER) 107 meq/L 98-107 (test code = 382) CO2 (BEAKER) 24 meq/L 22-29 (test code = 355) BLOOD UREA 16 mg/dL 7-21 NITROGEN (BEAKER) (test code = 354) CREATININE 2.41 mg/dL 0.57-1.25 H (BEAKER) (test code = 358) GLUCOSE RANDOM 141 mg/dL 70-105 H (BEAKER) (test code = 652) CALCIUM (BEAKER) 7.4 mg/dL 8.4-10.2 L (test code = 697) EGFR (BEAKER) 30 Interpretatio n of eGFR (test code = mL/min/1.73 values Stage De scription 1092) sq m Result G1 Mary l or high >=90 G2 Mildly decreased 60-89 G3a Mildl y to moderately 45-5 9 G3b Moderately to s everely 30-44 G4 Severl y decreased 15-29 G5 Kidney failure <15Reported eGF R is based on the CKD-EPI 2020 equation that d oes not use a race coefficientEsti mated GFR is not as accur ate as Creatinine Mary echo in predicting glom erular filtration rate . Estimated GFR is not appl icable for dialysis patien ts Rn Neonatal Icu ID - BSBLOOD GAS, [id number] 14:45:32 Test Item Value Reference Range Interpretation Comments PH VENOUS (BEAKER) (test code = 7.40 7.32-7.42 701) PCO2 VENOUS (BEAKER) (test code = 43 mm Hg 41-51 755) PO2 VENOUS (BEAKER) (test code = 104 mm Hg 25-40 H 702) O2 SATURATION VENOUS (BEAKER) 97.8 % 40.0-70.0 H (test code = 703) HCO3 VENOUS (BEAKER) (test code = 26 mmol/L 21-29 705) BASE EXCESS VENOUS (BEAKER) (test 0.7 mmol/L -2.0-3.0 code = 704) PATIENT TEMPERATURE (BEAKER) (test 37.0 code = 1818) FIO2 (BEAKER) (test code = 1819) 21.0 POCT-GLUCOSE [id number] 12:16:12 Test Item Value Reference Range Interpretation Comments POC-GLUCOSE METER 124 mg/dL 70-110 H : TESTED A T [facility] 6720 (BEAKER) (test code = [facility], 1538) 27703: Rn Neonatal Icu/Techni franklin ID = [id number] for JACKIE HOLT POCT-GLUCOSE [id number] 06:05:53 Test Item Value Reference Range Interpretation Comments POC-GLUCOSE METER 135 mg/dL 70-110 H : TESTED A T [facility] 6720 (BEAKER) (test code = [facility], 1538) 51442: Rn Neonatal Icu/Techni franklin ID = [id number] for AN TANO FOX BASIC METABOLIC [id number] 04:29:10 Test Item Value Reference Range Interpretation Comments SODIUM (BEAKER) 139 meq/L 136-145 (test code = 381) POTASSIUM 4.2 meq/L 3.5-5.1 (BEAKER) (test code = 379) CHLORIDE (BEAKER) 108 meq/L 98-107 H (test code = 382) CO2 (BEAKER) 24 meq/L 22-29 (test code = 355) BLOOD UREA 16 mg/dL 7-21 NITROGEN (BEAKER) (test code = 354) CREATININE 2.01 mg/dL 0.57-1.25 H (BEAKER) (test code = 358) GLUCOSE RANDOM 116 mg/dL 70-105 H (BEAKER) (test code = 652) CALCIUM (BEAKER) 7.5 mg/dL 8.4-10.2 L (test code = 697) EGFR (BEAKER) 37 Interpretatio n of eGFR (test code = mL/min/1.73 values Stage De scription 1092) sq m Result G1 Mary l or high >=90 G2 Mildly decreased 60-89 G3a Mildl y to moderately 45-5 9 G3b Moderately to s everely 30-44 G4 Severl y decreased 15-29 G5 Kidney failure <15Reported eGF R is based on the CKD-EPI 2020 equation that d oes not use a race coefficientEsti mated GFR is not as accur ate as Creatinine Mayr echo in predicting glom erular filtration rate . Estimated GFR is not appl icable for dialysis patien ts Rn Neonatal Icu ID - [id number] 04:23:50 Test Item Value Reference Range Interpretation Comments MAGNESIUM (BEAKER) (test code = 1.8 mg/dL 1.6-2.6 627) Rn Neonatal Icu ID - [id number] 04:23:50 Test Item Value Reference Range Interpretation Comments PHOSPHORUS (BEAKER) (test code = 4.2 mg/dL 2.3-4.7 604) Rn Neonatal Icu ID - MARCOCBC W/PLT COUNT & AUTO [id number] 04:06:52 Test Item Value Reference Range Interpretation Comments WHITE BLOOD CELL COUNT (BEAKER) 12.0 K/ L 3.5-10.5 H (test code = 775) RED BLOOD CELL COUNT (BEAKER) 3.85 M/ L 4.63-6.08 L (test code = 761) HEMOGLOBIN (BEAKER) (test code = 8.9 GM/DL 13.7-17.5 L 410) HEMATOCRIT (BEAKER) (test code = 29.5 % 40.1-51.0 L 411) MEAN CORPUSCULAR VOLUME (BEAKER) 77 fL 79-92 L (test code = 753) MEAN CORPUSCULAR HEMOGLOBIN 23.1 pg 25.7-32.2 L (BEAKER) (test code = 751) MEAN CORPUSCULAR HEMOGLOBIN CONC 30.2 GM/DL 32.3-36.5 L (BEAKER) (test code = 752) RED CELL DISTRIBUTION WIDTH 17.7 % 11.6-14.4 H (BEAKER) (test code = 412) PLATELET COUNT (BEAKER) (test 275 K/CU MM 150-450 code = 756) MEAN PLATELET VOLUME (BEAKER) 10.0 fL 9.4-12.4 (test code = 754) NUCLEATED RED BLOOD CELLS 0 /100 WBC 0-0 (BEAKER) (test code = 413) NEUTROPHILS RELATIVE PERCENT 76 % (BEAKER) (test code = 429) LYMPHOCYTES RELATIVE PERCENT 16 % (BEAKER) (test code = 430) MONOCYTES RELATIVE PERCENT 7 % (BEAKER) (test code = 431) EOSINOPHILS RELATIVE PERCENT 0 % (BEAKER) (test code = 432) BASOPHILS RELATIVE PERCENT 0 % (BEAKER) (test code = 437) NEUTROPHILS ABSOLUTE COUNT 9.09 K/ L 1.78-5.38 H (BEAKER) (test code = 670) LYMPHOCYTES ABSOLUTE COUNT 1.95 K/ L 1.32-3.57 (BEAKER) (test code = 414) MONOCYTES ABSOLUTE COUNT (BEAKER) 0.83 K/ L 0.30-0.82 H (test code = 415) EOSINOPHILS ABSOLUTE COUNT 0.00 K/ L 0.04-0.54 L (BEAKER) (test code = 416) BASOPHILS ABSOLUTE COUNT (BEAKER) 0.03 K/ L 0.01-0.08 (test code = 417) IMMATURE GRANULOCYTES-RELATIVE 0.50 % 0.00-1.00 PERCENT (BEAKER) (test code = 2801) Prepare Leuko-Red [id number] 01:59:00 Test Item Value Reference Range Interpretation Comments CROSSMATCH (test code = 2264) COMPATIBLE Unit ABO (test code = O Pos [id number]) UNIT NUMBER (test code = [id number] 934-0) Status (test code = 1567574) [facility] Product (test code RED BLOOD CELLS = 2263) PRODUCT CODE (test code = A8580M22 933-2) [facility] [id number] 01:59:00 Test Item Value Reference Range Interpretation Comments CROSSMATCH (test code = 2264) COMPATIBLE Unit ABO (test code = O Pos [id number]) UNIT NUMBER (test code = [id number] 934-0) Status (test code = 0087047) TX_TIMEINCHART Blood Bank Product (test code RED BLOOD CELLS = 2263) PRODUCT CODE (test code = [id number] 933-2) [facility] [id number] 01:59:00 Test Item Value Reference Range Interpretation Comments CROSSMATCH (test code = 2264) COMPATIBLE Unit ABO (test code = O Pos 1219809) UNIT NUMBER (test code = [id number] 934-0) Status (test code = 1867038) TX_TIMEINCHART Blood Bank Product (test code RED BLOOD CELLS = 2263) PRODUCT CODE (test code = X1847X18 933-2) [facility] [id number] 01:59:00 Test Item Value Reference Range Interpretation Comments CROSSMATCH (test code = 2264) COMPATIBLE Unit ABO (test code = O Pos 5252390) UNIT NUMBER (test code = [id number] 934-0) Status (test code = 7816334) [place]_TIMEINCHART Blood Bank Product (test code RED BLOOD CELLS = 2263) PRODUCT CODE (test code = B2840E68 933-2) [facility] [facility] [id number] 01:59:00 Test Item Value Reference Range Interpretation Comments CROSSMATCH (test code = 2264) COMPATIBLE Unit ABO (test code = O Pos 8459422) UNIT NUMBER (test code = [id number] 934-0) Status (test code = 9514261) TX_TIMEINCHART Blood Bank Product (test code RED BLOOD CELLS = 2263) PRODUCT CODE (test code = [id number] 933-2) [facility] [id number] 01:59:00 Test Item Value Reference Range Interpretation Comments CROSSMATCH (test code = 2264) COMPATIBLE Unit ABO (test code = O Pos 1394777) UNIT NUMBER (test code = [id number] 934-0) Status (test code = 0956988) TX_TIMEINCHART Blood Bank Product (test code RED BLOOD CELLS = 2263) PRODUCT CODE (test code = [id number] 933-2) [facility] [id number] 01:59:00 Test Item Value Reference Range Interpretation Comments CROSSMATCH (test code = 2264) COMPATIBLE Unit ABO (test code = O Pos 7896349) UNIT NUMBER (test code = [id number] 934-0) Status (test code = 6186745) TX_TIMEINCHART Blood Bank Product (test code RED BLOOD CELLS = 2263) PRODUCT CODE (test code = [id number] 933-2) [facility] [id number] 01:59:00 Test Item Value Reference Range Interpretation Comments CROSSMATCH (test code = 2264) COMPATIBLE Unit ABO (test code = O Pos 1254504) UNIT NUMBER (test code = [id number] 934-0) Status (test code = 5977219) [facility] Product (test code RED BLOOD CELLS = 2263) PRODUCT CODE (test code = [id number] 933-2) [facility] [id number] 01:59:00 Test Item Value Reference Range Interpretation Comments CROSSMATCH (test code = 2264) COMPATIBLE Unit ABO (test code = O Pos 4949500) UNIT NUMBER (test code = [id number] 934-0) Status (test code = 9720127) [facility] Blood [facility] Product (test code RED BLOOD CELLS = 2263) PRODUCT CODE (test code = [id number] 933-2) [facility] [id number] 23:58:29 Test Item Value Reference Range Interpretation Comments POC-GLUCOSE METER 114 mg/dL 70-110 H : [facility] ([facility]ER) (test code = [place], 1538) [address]: Rn Neonatal Icu/Techni franklin ID = [id number] for AN TANO FOX BASIC METABOLIC [id number] 17:54:42 Test Item Value Reference Range Interpretation Comments SODIUM (BEAKER) 139 meq/L 136-145 (test code = 381) POTASSIUM 4.3 meq/L 3.5-5.1 (BEAKER) (test code = 379) CHLORIDE (BEAKER) 107 meq/L 98-107 (test code = 382) CO2 (BEAKER) 24 meq/L 22-29 (test code = 355) BLOOD UREA 16 mg/dL 7-21 NITROGEN (BEAKER) (test code = 354) CREATININE 1.71 mg/dL 0.57-1.25 H (BEAKER) (test code = 358) GLUCOSE RANDOM 102 mg/dL 70-105 (BEAKER) (test code = 652) CALCIUM (LIZ) 7.5 mg/dL 8.4-10.2 L (test code = 697) EGFR (LIZ) 45 Interpretatio n of eGFR (test code = mL/min/1.73 values Stage De scription 1092) sq m Result G1 Mary l or high >=90 G2 Mildly decreased 60-89 G3a Mildl y to moderately 45-5 9 G3b Moderately to s everely 30-44 G4 Severl y decreased 15-29 G5 Kidney failure <15Reported eGF R is based on the CKD-EPI 2020 equation that d oes not use a race coefficientEsti mated GFR is not as accur ate as Creatinine Mary echo in predicting glom erular filtration rate . Estimated GFR is not appl icable for dialysis patien ts Rn Neonatal Icu ID - YUNIOR, ABDOMEN/KUB, 1 VIEW [id number] 17:46:00Reason for exam:->Assess stent positionShould this be performed at the bedside?->Yes [facility] 1960 Sex: MFINAL REPORT TECHNIQUE: RAD, ABDOMEN/KUB, 1 VIEW AP INDICATION: Assess stent position. COMPARISON: 06/08/2022 FINDINGS:Right ureteral stent is present. Proximal pigtail is incompletely formed. Distal pigtail projected over the midline of the lower pelvis. Midline surgical skin angela are present. Gas noted along the caudal margin of the bladder. IMPRESSION: 1. Right ureteral stent ispresent with proximal pigtail incompletely formed.2. Either gas within the prevesical space related to recent surgery or instrumentation/bladder perforation. Emphysematous cystitis would be a less likely consideration. Results discussed with and acknowledged by urology resident 11/04/2022 5:45 PM. Per that conversation, patient had surgery performed today. Signed: Yolis Canales MDReport Verified Date/Time: 11/04/2022 17:46:36 POCT-GLUCOSE METER 2022-11-04 16:00:03 Test Item Value Reference Range Interpretation Comments POC-GLUCOSE METER 108 mg/dL 70-110 : TESTED A T [facility] 6720 (BEAKER) ([facility] = 1538) [address]: Rn Neonatal Icu/Techni franklin ID = [id number] for Juan Manuel armandoSean BASIC METABOLIC [id number] 05:04:49 Test Item Value Reference Range Interpretation Comments SODIUM (BEAKER) 137 meq/L 136-145 (test code = 381) POTASSIUM 4.0 meq/L 3.5-5.1 (BEAKER) (test code = 379) CHLORIDE (BEAKER) 104 meq/L 98-107 (test code = 382) CO2 (BEAKER) 27 meq/L 22-29 (test code = 355) BLOOD UREA 17 mg/dL 7-21 NITROGEN (BEAKER) (test code = 354) CREATININE 1.56 mg/dL 0.57-1.25 H (BEAKER) (test code = 358) GLUCOSE RANDOM 116 mg/dL 70-105 H (BEAKER) (test code = 652) CALCIUM (BEAKER) 7.2 mg/dL 8.4-10.2 L (test code = 697) EGFR (BEAKER) 50 Interpretatio n of eGFR (test code = mL/min/1.73 values Stage De scription 1092) sq m Result G1 Mary l or high >=90 G2 Mildly decreased 60-89 G3a Mildl y to moderately 45-5 9 G3b Moderately to s everely 30-44 G4 Severl y decreased 15-29 G5 Kidney failure <15Reported eGF R is based on the CKD-EPI 2020 equation that d oes not use a race coefficientEsti mated GFR is not as accur ate as Creatinine Mary echo in predicting glom erular filtration rate . Estimated GFR is not appl icable for dialysis patien ts Rn Neonatal Icu ID - [id number] 05:04:37 Test Item Value Reference Range Interpretation Comments MAGNESIUM (BEAKER) (test code = 2.0 mg/dL 1.6-2.6 627) Rn Neonatal Icu ID - ADMINPROTHROMBIN TIME/[id number] 04:59:18 Test Item Value Reference Range Interpretation Comments PROTIME (BEAKER) (test code = 15.0 seconds 11.9-14.2 H 759) INR (BEAKER) (test code = 370) 1.21 <=5.90 RECOMMENDED COUMADIN/WARFARIN INR THERAPY RANGESSTANDARD DOSE: 2.0 - 3.0 Includes: PROPHYLAXIS for venous thrombosis, systemic embolization; TREATMENT for venous thrombosis and/or pulmonary embolus.HIGH RISK: Target INR is 2.5-3.5 for patients with mechanical heart valves.CBC (HEMOGRAM ONLY)2022-11-04 04:56:48 Test Item Value Reference Range Interpretation Comments WHITE BLOOD CELL COUNT (BEAKER) 11.9 K/ L 3.5-10.5 H (test code = 775) RED BLOOD CELL COUNT (BEAKER) 3.80 M/ L 4.63-6.08 L (test code = 761) HEMOGLOBIN (BEAKER) (test code = 8.8 GM/DL 13.7-17.5 L 410) HEMATOCRIT (BEAKER) (test code = 28.6 % 40.1-51.0 L 411) MEAN CORPUSCULAR VOLUME (BEAKER) 75 fL 79-92 L (test code = 753) MEAN CORPUSCULAR HEMOGLOBIN 23.2 pg 25.7-32.2 L (BEAKER) (test code = 751) MEAN CORPUSCULAR HEMOGLOBIN CONC 30.8 GM/DL 32.3-36.5 L (BEAKER) (test code = 752) RED CELL DISTRIBUTION WIDTH 17.4 % 11.6-14.4 H (BEAKER) (test code = 412) PLATELET COUNT (BEAKER) (test 287 K/CU MM 150-450 code = 756) MEAN PLATELET VOLUME (BEAKER) 9.8 fL 9.4-12.4 (test code = 754) NUCLEATED RED BLOOD CELLS 0 /100 WBC 0-0 (BEAKER) (test code = 413) [id number] 21:49:36 Test Item Value Reference Range Interpretation Comments FERRITIN (BEAKER) (test code = 77.94 ng/mL 5.00-275.00 361) Rn Neonatal Icu ID - BSIRON, TIBC, % SAT. (WITHOUT FERRITIN)2022-11-03 21:28:12 Test Item Value Reference Range Interpretation Comments IRON (BEAKER) (test code = 547) 18.0 ug/dL 40.0-160.0 L TOTAL IRON BINDING CAPACITY 153 ug/dL 250-450 L (BEAKER) (test code = 769) IRON % SATURATION (2) (BEAKER) 12 % 20-55 L (test code = 2590) Rn Neonatal Icu ID - BSCBC (HEMOGRAM ONLY)2022-11-03 21:23:56 Test Item Value Reference Range Interpretation Comments WHITE BLOOD CELL COUNT (BEAKER) 13.7 K/ L 3.5-10.5 H (test code = 775) RED BLOOD CELL COUNT (BEAKER) 4.18 M/ L 4.63-6.08 L (test code = 761) HEMOGLOBIN (BEAKER) (test code = 9.8 GM/DL 13.7-17.5 L 410) HEMATOCRIT (BEAKER) (test code = 31.6 % 40.1-51.0 L 411) MEAN CORPUSCULAR VOLUME (BEAKER) 76 fL 79-92 L (test code = 753) MEAN CORPUSCULAR HEMOGLOBIN 23.4 pg 25.7-32.2 L (BEAKER) (test code = 751) MEAN CORPUSCULAR HEMOGLOBIN CONC 31.0 GM/DL 32.3-36.5 L (BEAKER) (test code = 752) RED CELL DISTRIBUTION WIDTH 17.3 % 11.6-14.4 H (BEAKER) (test code = 412) PLATELET COUNT (BEAKER) (test 307 K/CU MM 150-450 code = 756) MEAN PLATELET VOLUME (BEAKER) 9.5 fL 9.4-12.4 (test code = 754) NUCLEATED RED BLOOD CELLS 0 /100 WBC 0-0 (BEAKER) (test code = 413) SARS-CoV2/RT-PCR (Asymptomatic ONLY)2022-11-03 19:16:18 Test Item Value Reference Interpretation Comments Range SARS-COV2/RT-PCR Negative Negative The SARS-Co V-2 (test code = target nucleic 17042-3) acids are not detected in thi s specimen. Negat chel results do not preclude SARS-C oV-2 infection and should not be u sed as the sole bas is for patient management decisions. Nega tive results must be combined with clinical observations, patient history , and epidemiolog ical information. A false negative result may occu r if a specimen is improperly collected, transported or handled. This S ARS CoV-2 test is a rapid, real-justin e RT-PCR test intended for e qualitative detection of nucleic acid fr om SARS-CoV-2 in a nasopharyngeal swab specimen collec stuart from individual s suspected of COVID-19 by the ir healthcare provider. ELINA (test code = This test has been ELINA) authorized by FDA under an EUA for use by authorized laboratories. This test is only authorized for the duration of the declaration that circumstances exist justifying the authorization of emergency use of in vitro diagnostic tests for detection and/or diagnosis of COVID-19 under Section 564(b)(1) of the Federal Food, Drug and Cosmetic Act, 21 U.S.C. 360bbb-3(b)(1), unless the authorization is terminated or revoked sooner. Fact Sheet for Healthcare Providers: https://www.[employer]/Documents/Xp ert%20Xpress%20SAR S%20CoV-2/Fact%20S heets/302-3802%20S ARS-COV-2%20HEALTH CARE%20PROVIDERS%2 0FACT%20SHEET.pdf Fact Sheet for Healthcare Patients: https://www.[employer]/Documents/Xp ert%20Xpress%20SAR S%20CoV-2/Fact%20S heets/302-3801%20S ARS-COV-2%20PATIEN T%20FACT%20SHEET.p df Lab Interpretation Normal (test code = 18269-7) [facility] 19:16:18 Test Item Value Reference Interpretation Comments Range SARS-COV2/RT-PCR Negative Negative The SARS-Co V-2 (test code = target nucleic 19495-0) acids are not detected in thi s specimen. Negat chel results do not preclude SARS-C oV-2 infection and should not be u sed as the sole bas is for patient management decisions. Nega tive results must be combined with clinical observations, patient history , and epidemiolog ical information. A false negative result may occu r if a specimen is improperly collected, transported or handled. This S ARS CoV-2 test is a rapid, real-justin e RT-PCR test intended for e qualitative detection of nucleic acid fr om SARS-CoV-2 in a nasopharyngeal swab specimen colle stuart from individual s suspected of COVID-19 by the ir healthcare provider. ELINA (test code = This test has been ELINA) authorized by FDA under an EUA for use by authorized laboratories. This test is only authorized for the duration of the declaration that circumstances exist justifying the authorization of emergency use of in vitro diagnostic tests for detection and/or diagnosis of COVID-19 under Section 564(b)(1) of the Federal Food, Drug and Cosmetic Act, 21 U.S.C. 360bbb-3(b)(1), unless the authorization is terminated or revoked sooner. Fact Sheet for Healthcare Providers: https://www.[employer]/Documents/Xp ert%20Xpress%20SAR S%20CoV-2/Fact%20S heets/302-3802%20S ARS-COV-2%20HEALTH CARE%20PROVIDERS%2 0FACT%20SHEET.pdf Fact Sheet for Healthcare Patients: https://www.[employer]/Documents/Xp ert%20Xpress%20SAR S%20CoV-2/Fact%20S heets/302-3801%20S ARS-COV-2%20PATIEN T%20FACT%20SHEET.p df Lab Interpretation Normal (test code = 07631-0) [facility]2022-11-03 19:16:18 Test Item Value Reference Interpretation Comments Range SARS-COV2/RT-PCR Negative Negative The SARS-Co V-2 (test code = target nucleic 56087-7) acids are not detected in thi s specimen. Negat chel results do not preclude SARS-C oV-2 infection and should not be u sed as the sole bas is for patient management decisions. Nega tive results must be combined with clinical observations, patient history , and epidemiolog ical information. A false negative result may occu r if a specimen is improperly collected, transported or handled. This S ARS CoV-2 test is a rapid, real-justin e RT-PCR test intended for th e qualitative detection of nucleic acid fr om SARS-CoV-2 in a nasopharyngeal swab specimen colle stuart from individual s suspected of COVID-19 by the ir healthcare provider. ELINA (test code = This test has been ELINA) authorized by FDA under an EUA for use by authorized laboratories. This test is only authorized for the duration of the declaration that circumstances exist justifying the authorization of emergency use of in vitro diagnostic tests for detection and/or diagnosis of COVID-19 under Section 564(b)(1) of the Federal Food, Drug and Cosmetic Act, 21 U.S.C. 360bbb-3(b)(1), unless the authorization is terminated or revoked sooner. Fact Sheet for Healthcare Providers: https://www.[employer]/Documents/Xp ert%20Xpress%20SAR S%20CoV-2/Fact%20S heets/302-3802%20S ARS-COV-2%20HEALTH CARE%20PROVIDERS%2 0FACT%20SHEET.pdf Fact Sheet for Healthcare Patients: https://www.[employer]/Documents/Xp ert%20Xpress%20SAR S%20CoV-2/Fact%20S heets/302-3801%20S ARS-COV-2%20PATIEN T%20FACT%20SHEET.p df Lab Interpretation Normal (test code = 25004-2) [facility]2022-11-03 19:16:18 Test Item Value Reference Interpretation Comments Range SARS-COV2/RT-PCR Negative Negative The SARS-Co V-2 (test code = target nucleic 89881-6) acids are not detected in thi s specimen. Negat chel results do not preclude SARS-C oV-2 infection and should not be u sed as the sole bas is for patient management decisions. Nega tive results must be combined with clinical observations, patient history , and epidemiolog ical information. A false negative result may occu r if a specimen is improperly collected, transported or handled. This S ARS CoV-2 test is a rapid, real-justin e RT-PCR test intended for th e qualitative detection of nucleic acid fr om SARS-CoV-2 in a nasopharyngeal swab specimen colle stuart from individual s suspected of COVID-19 by the ir healthcare provider. ELINA (test code = This test has been ELINA) authorized by FDA under an EUA for use by authorized laboratories. This test is only authorized for the duration of the declaration that circumstances exist justifying the authorization of emergency use of in vitro diagnostic tests for detection and/or diagnosis of COVID-19 under Section 564(b)(1) of the Federal Food, Drug and Cosmetic Act, 21 U.S.C. 360bbb-3(b)(1), unless the authorization is terminated or revoked sooner. Fact Sheet for Healthcare Providers: https://www.[employer]/Documents/Xp ert%20Xpress%20SAR S%20CoV-2/Fact%20S heets/302-3802%20S ARS-COV-2%20HEALTH CARE%20PROVIDERS%2 0FACT%20SHEET.pdf Fact Sheet for Healthcare Patients: https://www.[employer]/Documents/Xp ert%20Xpress%20SAR S%20CoV-2/Fact%20S heets/302-3801%20S ARS-COV-2%20PATIEN T%20FACT%20SHEET.p df Lab Interpretation Normal (test code = 97614-7) [facility]2022-11-03 19:16:18 Test Item Value Reference Interpretation Comments Range SARS-COV2/RT-PCR Negative Negative The SARS-Co V-2 (test code = target nucleic 64539-3) acids are not detected in thi s specimen. Negat chel results do not preclude SARS-C oV-2 infection and should not be u sed as the sole bas is for patient management decisions. Nega tive results must be combined with clinical observations, patient history , and epidemiolog ical information. A false negative result may occu r if a specimen is improperly collected, transported or handled. This S ARS CoV-2 test is a rapid, real-justin e RT-PCR test intended for th e qualitative detection of nucleic acid fr om SARS-CoV-2 in a [facility]oph[facility]ab [facility] individual s suspected of COVID-19 by the ir healthcare provider. ELINA (test code = This test has been ELINA) authorized by FDA under an EUA for use by authorized laboratories. This test is only authorized for the duration of the declaration that circumstances exist justifying the authorization of emergency use of in vitro diagnostic tests for detection and/or diagnosis of COVID-19 under Section 564(b)(1) of the Federal Food, Drug and Cosmetic Act, 21 U.S.C. 360bbb-3(b)(1), unless the authorization is terminated or revoked sooner. Fact Sheet for Healthcare Providers: https://www.[employer]/Documents/Xp ert%20Xpress%20SAR S%20CoV-2/Fact%20S heets/302-3802%20S ARS-COV-2%20HEALTH CARE%20PROVIDERS%2 0FACT%20SHEET.pdf Fact Sheet for Healthcare Patients: https://[employer]/Documents/Xp ert%20Xpress%20SAR S%20CoV-2/Fact%20S heets/302-3801%20S ARS-COV-2%20PATIEN T%20FACT%20SHEET.p df Lab Interpretation Normal (test code = 08175-5) [facility]2022-11-03 19:16:18 Test Item Value Reference Interpretation Comments Range SARS-COV2/RT-PCR Negative Negative The SARS-Co V-2 (test code = target nucleic 97043-6) acids are not detected in thi s specimen. Negat chel results do not preclude SARS-C oV-2 infection and should not be u sed as the sole bas is for patient management decisions. Nega tive results must be combined with clinical observations, patient history , and epidemiolog ical information. A false negative result may occu r if a specimen is improperly collected, transported or handled. This S ARS CoV-2 test is a rapid, real-justin e RT-PCR test intended for th e qualitative detection of nucleic acid fr om SARS-CoV-2 in a nasopharyngeal swab specimen colle stuart from individual s suspected of COVID-19 by the ir healthcare provider. ELINA (test code = This test has been ELINA) authorized by FDA under an EUA for use by authorized laboratories. This test is only authorized for the duration of the declaration that circumstances exist justifying the authorization of emergency use of in vitro diagnostic tests for detection and/or diagnosis of COVID-19 under Section 564(b)(1) of the Federal Food, Drug and Cosmetic Act, 21 U.S.C. 360bbb-3(b)(1), unless the authorization is terminated or revoked sooner. Fact Sheet for Healthcare Providers: https://www.[employer]/Documents/Xp ert%20Xpress%20SAR S%20CoV-2/Fact%20S heets/302-3802%20S ARS-COV-2%20HEALTH CARE%20PROVIDERS%2 0FACT%20SHEET.pdf Fact Sheet for Healthcare Patients: https://www.[employer]/Documents/Xp ert%20Xpress%20SAR S%20CoV-2/Fact%20S heets/302-3801%20S ARS-COV-2%20PATIEN T%20FACT%20SHEET.p df Lab Interpretation Normal (test code = 25303-5) [facility]2022-11-03 19:16:18 Test Item Value Reference Interpretation Comments Range SARS-COV2/RT-PCR Negative Negative The SARS-Co V-2 (test code = target nucleic 45445-2) acids are not detected in thi s specimen. Negat chel results do not preclude SARS-C oV-2 infection and should not be u sed as the sole bas is for patient management decisions. Nega tive results must be combined with clinical observations, patient history , and epidemiolog ical information. A false negative result may occu r if a specimen is improperly collected, transported or handled. This S ARS CoV-2 test is a rapid, real-justin e RT-PCR test intended for th e qualitative detection of nucleic acid fr om SARS-CoV-2 in a nasopharyngeal swab specimen collec stuart from individual s suspected of COVID-19 by the ir healthcare provider. ELINA (test code = This test has been ELINA) authorized by FDA under an EUA for use by authorized laboratories. This test is only authorized for the duration of the declaration that circumstances exist justifying the authorization of emergency use of in vitro diagnostic tests for detection and/or diagnosis of COVID-19 under Section 564(b)(1) of the Federal Food, Drug and Cosmetic Act, 21 U.S.C. 360bbb-3(b)(1), unless the authorization is terminated or revoked sooner. Fact Sheet for Healthcare Providers: https://www.[employer]/Documents/Xp ert%20Xpress%20SAR S%20CoV-2/Fact%20S heets/302-3802%20S ARS-COV-2%20HEALTH CARE%20PROVIDERS%2 0FACT%20SHEET.pdf Fact Sheet for Healthcare Patients: https://www[employer]/Documents/Xp ert%20Xpress%20SAR S%20CoV-2/Fact%20S heets/302-3801%20S ARS-COV-2%20PATIEN T%20FACT%20SHEET.p df Lab Interpretation Normal (test code = 48867-1) [facility]2022-11-03 19:16:18 Test Item Value Reference Interpretation Comments Range SARS-COV2/RT-PCR Negative Negative The SARS-Co V-2 (test code = target nucleic 57830-7) acids are not detected in thi s specimen. Negat chel results do not preclude SARS-C oV-2 infection and should not be u sed as the sole bas is for patient management decisions. Nega tive results must be combined with clinical observations, patient history , and epidemiolog ical information. A false negative result may occu r if a specimen is improperly collected, transported or handled. This S ARS CoV-2 test is a rapid, real-justin e RT-PCR test intended for th e qualitative detection of nucleic acid fr om SARS-CoV-2 in a nasopharyngeal swab specimen collec stuart from individual s suspected of COVID-19 by the ir healthcare provider. ELINA (test code = This test has been ELINA) authorized by FDA under an EUA for use by authorized laboratories. This test is only authorized for the duration of the declaration that circumstances exist justifying the authorization of emergency use of in vitro diagnostic tests for detection and/or diagnosis of COVID-19 under Section 564(b)(1) of the Federal Food, Drug and Cosmetic Act, 21 U.S.C. 360bbb-3(b)(1), unless the authorization is terminated or revoked sooner. Fact Sheet for Healthcare Providers: https://www.[employer]/Documents/Xp ert%20Xpress%20SAR S%20CoV-2/Fact%20S heets/302-3802%20S ARS-COV-2%20HEALTH CARE%20PROVIDERS%2 0FACT%20SHEET.pdf Fact Sheet for Healthcare Patients: https://www.[employer]/Documents/Xp ert%20Xpress%20SAR S%20CoV-2/Fact%20S heets/302-3801%20S ARS-COV-2%20PATIEN T%20FACT%20SHEET.p df Lab Interpretation Normal (test code = 14315-7) [facility]2022-11-03 19:16:18 Test Item Value Reference Interpretation Comments Range SARS-COV2/RT-PCR Negative Negative The SARS-Co V-2 (test code = target nucleic 20093-8) acids are not detected in thi s specimen. Negat chel results do not preclude SARS-C oV-2 infection and should not be u sed as the sole bas is for patient management decisions. Nega tive results must be combined with clinical observations, patient history , and epidemiolog ical information. A false negative result may occu r if a specimen is improperly collected, transported or handled. This S ARS CoV-2 test is a rapid, real-justin e RT-PCR test intended for th e qualitative detection of nucleic acid fr om SARS-CoV-2 in a nasopharyngeal swab specimen collec stuart from individual s suspected of COVID-19 by the ir healthcare provider. ELINA (test code = This test has been ELINA) authorized by FDA under an EUA for use by authorized laboratories. This test is only authorized for the duration of the declaration that circumstances exist justifying the authorization of emergency use of in vitro diagnostic tests for detection and/or diagnosis of COVID-19 under Section 564(b)(1) of the Federal Food, Drug and Cosmetic Act, 21 U.S.C. 360bbb-3(b)(1), unless the authorization is terminated or revoked sooner. Fact Sheet for Healthcare Providers: https://www.[employer]/Documents/Xp ert%20Xpress%20SAR S%20CoV-2/Fact%20S heets/302-3802%20S ARS-COV-2%20HEALTH CARE%20PROVIDERS%2 0FACT%20SHEET.pdf Fact Sheet for Healthcare Patients: https://www.[employer]/Documents/Xp ert%20Xpress%20SAR S%20CoV-2/Fact%20S heets/302-3801%20S ARS-COV-2%20PATIEN T%20FACT%20SHEET.p df Lab Interpretation Normal (test code = 82203-9) [facility]2022-11-03 19:16:18 Test Item Value Reference Range Interpretation Comments SARS-COV2/RT-PCR Negative Negative The SARS-Co V-2 target (test code = nucleic acids a re not 4253505) detected in thi s specimen. Negative result s do not preclude SARS-C oV-2 infection and s hould not be used as the [place] e basis for patient managem ent decisions. Nega tive results must be combine d with clinical observ ations, patient history , and epidemiological information. A false negativ e result may occur if a spec imen is improperly karin ected, transported or handled. This SARS CoV-2 test is a rapid, real-time RT-PC R test intended for th e qualitative detection of nu cleic acid from SARS-CoV-2 in a nasopharyngeal swab specimen collected from individuals suspected of CO VID-19 by their healthcar e provider. This test has been authorized by FDA under an EUA for use by authorized laboratories. This test is only authorized for the duration of the declaration that circumstances exist justifying the authorization of emergency use of in vitro diagnostic tests for detection and/or diagnosis of COVID-19 under Section 564(b)(1) of the Federal Food, Drug and Cosmetic Act, 21 U.S.C. 360bbb-3(b)(1), unless the authorization is terminated or revoked sooner. Fact Sheet for Healthcare Providers: https://www.[employer]/Documents/Xpert%20Xpress%20SARS%20CoV-2/Fact%20Sheets/302-3802%43XGRS-NDK-6%20 HEALTHCARE%20PROVIDERS%20FACT%20SHEET.pdf Fact Sheet for Healthcare Patients: https://www.[employer]/Documents/Xpert%20Xp ress%20SARS%20CoV-2/Fact%20Sheets/302-3801%86SVID-WAA-0%20PATIENT%20FACT%20SHEET .pdfPrepare Leuko-Red [id number] 15:20:00 Test Item Value Reference Range Interpretation Comments CROSSMATCH (test code = 2264) COMPATIBLE Unit ABO (test code = O Pos 5037104) UNIT NUMBER (test code = [id number] 934-0) Status (test code = 1047706) READY Blood Bank Product (test code RED BLOOD CELLS = 2263) PRODUCT CODE (test code = I6374N97 933-2) [facility] [id number] 14:12:29 Test Item Value Reference Range Interpretation Comments IMMUNOGLOBULIN A 295 mg/dL 63-484 (IGA) ([employer] Energy SystemsAKER) (test code = 639) IMMUNOGLOBULIN G 1567 mg/dL See_Comment [Automated (IGG) (X-1) (test message ] The code = 427) system which generated this result transmitted reference range : 540-1,822. The reference range was not used to interpret this result as normal/abnormal . IMMUNOGLOBULIN M 64 mg/dL 22-293 (IGM) (BEAKER) (test code = 638) SERUM IT ID No monoclonal 6144(X-1) (test protein detected. code = 3817) [facility]-PATHOLOGIST-"JUDITH Dockery 6144" (X-1) (test M.D (electronic code = 3802) signature) Clinical Personal Service Workers - SFOperator ID - EmmanuelPROTEIN ELECTROPHORESIS, SERUM WITH REFLEX TO [id number] 14:11:57 Test Item Value Reference Range Interpretation Comments ALBUMIN FRACTION 1.3 gm/dL 3.5-5.5 L (BEAKER) (test code = 405) ALPHA 1 FRACTION 0.5 gm/dL 0.2-0.4 H (BEAKER) (test code = 389) ALPHA 2 FRACTION 0.9 gm/dL 0.4-1.0 (BEAKER) (test code = 390) BETA FRACTION 0.7 gm/dL 0.5-1.1 (BEAKER) (test code = 392) GAMMA GLOBULIN 1.4 gm/dL 0.7-1.6 FRACTION (BEAKER) (test code = 391) INTERPRETATION-119 Low albumin with (BEAKER) (test code = increase in alpha 1 2615) globulins suggests an acute phase response. Clinical correlation suggested. [id number] Sadie Dockery M.D (BEAKER) (test code = (electronic signature) 9286) PROTEIN TOTAL SERUM, 4.7 gm/dL 6.0-8.3 L SPEP (BEAKER) (test code = 7132) Clinical Personal Service Workers - SFOperator ID - BSOperator ID - [id number] 12:53:57 Test Item Value Reference Range Interpretation Comments RPR SCREEN (BEAKER) (test code = Nonreactive Nonreactive 420) ANTI-NUCLEAR ANTIBODY (KIARA)2022-11-03 12:48:12 Test Item Value Reference Range Interpretation Comments ANTI-NUCLEAR ANTIBODY (KIARA) (BEAKER) Negative Negative (test code = 418) Test performed by IFA method.Test performed by IFA method.Tissue [id number] 09:51:25 Test Item Value Reference Range Interpretation Comments Case Report (test code Surgical Pathology = 104) Report Case: [id number] Authorizing Provider: Zena Antonio MD Collected: 10/30/2022 12:00 PM Ordering Location: [address] Received: 10/31/2022 12:04 PM Service Pathologist: Ruby Cole MD Specimens: A) - Mass, bx sigmoid mass B) - Cecum, bx r/o malignancy DIAGNOSIS (test code = p6weuMReXTBsq4hcBNOryB 3220) FuZzEwMzNcZnRuYmpcdWMx IHtccnRmMVxlcGljOTYwMl liygDdRXUjvGUoM0Hmlpby ARrsJO3eIU4xhYwniEKxdW YaPLTxSrPko0zdl244qICb t4akYLGXozqygZd5yNkpO0 2bi8W4WiyxG32rkTPdHBN2 EUIcYXTtiYDbGKMeDVG3ED VtcZNbQ5soDTToKP8trjdd CWvvGVeeFXXamVB8QNRbjW DkS0SiLNCdOYqtKWDlddu8 UnHrJt2uuGXgeUrwLErdET JkXHBsYWluXGZzMjAgQSBT VTgUI1xREI9BX1SzQWQKG7 KLLGtwCYUdL5HdRGHpdYBg IEzeDyDaX56luzKxYT6oWH K8HOagSNG9KLkhyRKscAUa n5QrcXCcBOQlc6MktyVjeq 1wNMpeAXJgVTqslDN7Y0yx qiDeKRwiVZZwc6LevB7xIz pbwK7hlB8vdFzrcS7bkRAf xBC5kgxyWE6THKOgTP2YKR EsYW8RABXoAY2kXMAUSiJz NYXtJMBtyaKqD0CfoFYcOW FnxiAMQACGV0FKTPBJEINZ H36oBHJQG2UVPAzmAYYsX1 7ui00dDyDbtDRdv4Bhp6b7 jJZfrXivCP5hnlJuBLZvSf tyJBUqaz7mtNZkzQ8ozNQd uBH3xN8yBLIgymILOYeguU x1YRToe0VaWVqonKkqx1ih KB1tNQ0mgQsitgLsP4scnF JbkBwxokBnODuyu8LmLNua FWElXS6seYoyJAArQJ4oWH UnT2slzN3vtpi3XkToUDLd VsH2XVUyyiH5Bvk1AOGqVI deo9sqx0XeZSObLIv9dEiv VpIdBJBug9njqgUvRhUpZV NnZWCyKQLrgZTbA487p4py s0hmjsNqpEQ9AQMsGDX5UT ytiwJbdxT2LFdadPXzOvV8 IDtccmVkMFxncmVlbjBcYm r4MLTyY431FQW9cWysj6km UHJ4EIYmFIZuWkRkXs8ykM UbE284KWDoKKOFIBGooNw0 ZHAimePdrxRgzPUUs852Q8 49q6waRGIisnYmaNiRrhth z2tjT796COLslUAxhcQhIw ZiURZvwDVpjFI6LOAcRJ2i jidsQDzbCYgiPFYssvT8VX MdrSBtK4FoDDKyVG4ugvco QKM1BPjeMCQdMGL8TkFwJD War4Vychm0TdXloe7ezy01 RXP0c5PulZruYOA8EFV0Ao FgUo2sdXEaTRScRD9nVjQp lNDlMBUssb82hJlnXOwnZT S1UBBaedHtv0Vnz6voAsKg eeRhN3acL2HqYUGhQPHpIE GkSvXnveOxv4Vfd8CgwZEv sOw2k4lbXZHoYNWaeQnwl1 stPLG3HKGpbANkV4kpcG2z ASFkYA4ozescg6jaHSdtKX hoNWVyqGP4biH9SLAizLJz F7OleD5uOVByWTfhUEEoxx b3BhQcDg0eaMQgdNoaHByn YmtwYWdlXHBnbmNvbnRccG duZGVjXHBsYWluXHBsYWlu XGYwXGZzMjRccWxcbGFuZz EwMzNcaGljaFxmMVxkYmNo SJWrWPycC3thYtJwXyBtAc d1NYWodQYlYNWlHbv2YDMj kBNuDAMBxHzvrU4pNOYiiK lteK9mdIR3CAJuosLykWWA uN8oGODClG5qPdZ6UJUmFx u1DBW5EvLmiKLcmR5= COMMENT (test code = k7vmvMUeYDFteTP1QuKcGD 3359) Tnk4lgc2PnsZMotMGdBXwj sKYhfdAluv64jBP5vA45DP 7bTSYyWyF5HYLlhzR5Aje4 LXPaULIauKZxA618v7jkm1 kdzvDokGA3oMdpIBCmmehb JiW8DHqrWHFxndocXAf9ZJ tkLKQejOX1TAXthDPcN6Vl GWBtSO6yjug7BVW7XImyAX YoGwB4PWRflOVeVBBzrWke SZvxq102VSU8EqNuBWKzot NfsKzckZ8eKkHoRWDGiuAi t7ZlgNrqIBHhyF8mjCMyLC ZpZXdlZFxwYXJccGFyZFxw YXJ9 CPT Code(s) (test code c8tpuHNqWOGndTH4ThKoNS = 3357) Hsm9vqt1MkpJWukLOkIDmm iDWqrtYdhe23uSE2lL59IK 3rZHIbCfQ4ATYresY2Muf4 VVWoMXIfmXDqE293j4lll6 nageKwwXN7mZctXULovxhz FuK4IYqqFTGkupayILy4VX kbGQRtdUG3HQUboEFvN8Pz IJBpNY1zhov6YWN1XOyqCR LbXjY7SVOqfRErWDUytNeu SQrld186IHL3VxYjMPIugc PoaIsbfU8dAnHyIND8GJMv UCX9BmhzGJSbQGonLANpgQ QgNEt6YhMdlFInxGZgaV== CLINICAL HISTORY (test o5zjnLShIXLzuMM6VqAfSB code = 3356) Hxf3mck5LfmVGekENvQRto qQXsysLaet16aBW1sM36OW 5eYSHhNzT3PWCocaJ5Omg4 MXWeEUYusVRuJ513s9pqy6 npmiIjnZM8pTfoBWGugndv TdS7YMrhPIJbvwnjFUm5IT jiOSIqbNG4FPNmhKYdY7Bp XXIqXM3zvkq1OXE4NFolOO LfJwR6NHVhfSXvYNVuyTub KWwxe092YYT3DtRvBKNmqk FjeFleuR7kHmBeQQKNs0ko refnOC9qg2LlyNRqvB== GROSS DESCRIPTION (test m6felUXhYFJuzKIHCXJrR4 code = 6283830677) vzlyUfYZGmxRRxF9Hgrtal MTrlDD8tFX5jwInfwTLmzD RjTK8MFFFlFjHmWFBceKCb scSyUqQjWFCzhMNgrUR3CL AxXX3fswffBNqrSLeiIBVx vaK2AOWceUGkQ4HiTZBqJU 8vfilwCME2CKwiaB7aipOM BkhcIz8lnHQahMylNhHnAh NoYXJzZXQwXGZuaWwgQXJp UHl4yG3LZleyI62ga8A4Zk h1LVYbDCViO3ZfXD2kEGTu vENaZ08ATyhcTAA4VRNXKf idTQAyLC3Lq8xiLXWlqGKr DTO5CIpotJBvMIRhUZGkEC z7XROwZLxtiMPgFR6lvGxn FqunmIypv9KnzSMqKPwxHJ OwRUQhGCcqDNLzXB3QXpUx BGlrZWk3RydzLTi2CFr5JA 3OUeRqATZyGyU5ZdFcYQHj EVn7DPoiLP1AABM2ErI5Ep BwCXN9EXIuLDVqRBJbDjYt XGYgQXJpYWwgXFxmbCBcXG 5jfVxwbGFpbiBBLiBNYXNz BpluVLPaBCgbKQPxJ36jl4 AVk5AyJU6BMFv1wfCmvdsz xD6hXPHmlxAyAJculIOjN0 hxH4QiFKUfFjEtJgMgTPw8 CHIwhB8fQq7glBPgtL2evV RvNWmuVJK1vNRvMLIzJPSi GKBwYQ23WEqGXKFtqrAkRO wgbWVkaWNhbCByZWNvcmQg bnVtYmVyIGFuZCBcdTgyMj GkZXh4L89gi4XcGZKiKOCk mQr1vRWmJNT7TJ1zrNhmbp QlkqVeK4VmBPUop34dtLW8 yWJseARbFvRzA38nkfPcTH gwLjYgeCAwLjIgeCAwLjIg R84azK0pKRpdlvJnUHWrJB 4oZXTkBTQfxSFflT2qovLd veRkzFVbcPV9POOafX3jxE 80wkDdimKJPSw8MADjHBQt Jll0DJFgTQHqvfUHGmreAT EmBFyuL2XjLFBjDyAkTNvv aRcqjK2pGKWeB47nr8CXm5 IdNFDkGLhtr4kcpAhzi1Ii dGVuZFxwYXJccGFyZFxzbC 8pXwSku4pfvMb8FFjrldW4 WDAwnj6UIofgRphbdKkty0 VjdCBcXGlkIDUxMDAyIFxc WAGiEF9UReAoNRapCFy1Rd isMGa8TLx1BD6CAwOfNOOe VdK0WvNtPTNqGIe8BWjzUS 7JVFF0Qeg4XXX9KYH9OQQt MyBcXHQgMiBcXGYgQXJpYW zkOPqpwKOaBR2dxFghcpL8 ZCDmMHwpHCQsWQGxJ0VyMp nsLFQiRIlnEESrI11tl5DP z3TtVG2THYy6vhWsaxgsrV 8zQXJglmQdYFokkDDdK8gd I5CrNQMoLdJvEfApZTq9XX IwtG4kKl2zkMVcpD9ykNIu YUuiGLI6jSPsADTjHSNoBN KpAP66YCkIGRQbwuXvMYke bWVkaWNhbCByZWNvcmQgbn VtYmVyIGFuZCBcdTgyMjAg MQa5U5HkG8QvRsJjiqRzgQ VsdGlwbGUgdGFuLXBpbmsg uGAkVUg1yIMrKZEoOdHxqB zcc6InBOVtGIkgHU50xjHb NB18JWauQK2iAVwxJZ6wZJ UlTIkjBSZxE4XxL4K3AQeu AXOUjXIvw8JnN7izOY7ilX Gtw8CngRx6xWViNFlfWNUy bW5lsO1bMsMhIBQmbvORIg euYNDbXCkwX3NxTBvguMpj cmluZSBOYWplcmEsIFBBIF C0zOTrpiPIZkhhzGNqdmlp cGljTmVzdERvYzBccGxhaW 16NFIdtWBwLLI2JT5pKITl sfabQJVlLUGfPMB9LPpgeL 20lQWeCJZjKWCpvSIivG6Q NGKeNQA1EIdjoP28rPYwRA 4MKBUtDFJ5VNNexKOnMZQ4 QA8azQ3NsR== MICROSCOPIC DESCRIPTION h4kdyUYmJTEbrJZ8TzOlBG (test code = 3371) Qbh4mrg4FmpSSuzXGxVRsq tKDzteVzee33hDE6wW04MV 5cQLXhQsP9OPPqqgJ4Hso8 UXBiPLIzdRKyH946j5fuz2 tbazVcjHI5TTRxBLVsF4Nb HF6fUJGffUNkH57ipMRkOA O7DNAwCWVdvIDgWTTgBTL7 LMQwfGSoH9duVWZtAU5vwv rvAMiqKRlkQEAwuVK2YYLc xAQzX3MjHUEyVLjxGZZzwr b9GsDeNu1zoWFlsCbmYVqu YXJkXHBsYWluXGZzMjAgUG NkXn6keRZcNIZgquneNBLo BeoPS5eaLBJwRKFaqygiYG PyTtklInErZhGVLDbAX1jn XUBzFK2kaL7xyFdacI4zzB SseEY3lvsiJMaQLifhDWYt pMeoKvGal5JlNGpqgQA9W2 ggUmVwYWlyIChNTVIpIFBy b3VpuL5cTBbxUOJeDbZmV6 WrWS5KRRL0XO86RRH6GS94 L7sqXMFuHCxoomFxt8zrgd eiLOMmOUBIMaaSkgYyJ6Kt bnVjbGVhciBleHByZXNzaW 6xEOXetpAOL9w1IlzolCUm xGEavZQdZLQjSYU4sJYqz0 Nzu22itXRlKJQXEhG8VC07 NUP5PS75G7ixQEKrILutoi Hgf5zftxpwONJmDCBtL3pz ni32xvArmt9tnaCqkZemj5 NmJuO9kYZffAMhoF93WOQp TJonN07ztVSusRA5qAFzPF ludGFjdCBudWNsZWFyIGV4 yPNdw8Tfq40duGEqPMUwjw xwYXJcYlxjZjEgSUhDIElu mXFhxFPecSV2tA3iLbosVF KoAjQcZ5AqRU3vWEqpq7Eh c9JtilTjwHQkqyHawRQwAT UwxT1kST8yZI2CDyMpne02 AXgtnxskiE07SMImg5AeBa wieMC2YX9bIH2hY1Pkp8E3 GUcqtQMfXEync3QoXtllxO J5TGepB8csXSVSATziTVTq rkwwECAnvDrkIiAeMv6CGU ogIFRoZXJlIGFyZSBleGNl jWItf01vSUAfLTXqTFFiZt 83FZITQRZssS82YAPvtqB8 TFHmt87dZaQKnSKtMKOdDJ X1zBKlLMQit3RsSBZnw0Kl UkPwT37ts4baEDKnVTBayn Fyp54tCNRnx06uQNWyYLPu rVkoaGYkkYKcq8EtSWaynM sjjyA2sRSgHVzbevK7rKNb D794qzMrdRzbNvBbvoHdNY FvtJ8raiTvPFW1ttTpb0Tg h9VkkSpdMM5qKBOjTv9wHG jsfl8dkY1kGJApz5Vkrsbu XHBhclxwYXJkXGkwXGNmMF xwYXJ9 SPECIAL STUDIES (test n9tfwMLfWUHig9noUCCxaH code = 3376) FuZzEwMzNcZnRuYmpcdWMx GGlwjwUfAGuwg3EuU9HtZj AwMFxhbnNpXGRlZmxhbmcx UPBhTLQ2plTyXUKmCMseQX HnHBwkHj5anJDpcHksDdPv OUGrd9dpxfXQzjticJc9l4 hiPKWpQoL4cRLjEZknZ3xi haKjpROdO4CnkQXqwCw0r2 krUfSnDtR8rYDkYPbqO7hq dsMuyIMlTZGqHTu3mZ47QP MzlY0xuTYsYJdsdfAkEgK2 QGwkDEIzZdZ1TKAyrQKuAW PiE9bjRARiZEupMJSbYSmn qRAzSXD9qAgfh5R5lTJpbH BegAmbOsWaIdXnBbTRi4Uo DMt8vKzoR3AiDSZdZpF7rG QgUGFyYWdyYXBoIEZvbnQ7 wJyqhcWlm44qhXVdEMVuLM QfLfFxfQiiREAwMORQs5Kb wCimJQC1mEk8qEcbBmncMF T7Xav1RV6wpv04yyx1qRbp VPDcslceOgQ7HTqaFBGcik rsODa5QRqhZMYnmYZ3SIKa dKKhX2YrYNKzFY3qdxr8HK S5VSlsDZZbQmZ2GVZusMYh YXZgwMzvGNbwo396FZB5Jj PgIS7kC0Btp0R0jN2teSIp OTIqrKXfMuGgCPXvzg6wsA ZwAJzef7IlGZN3ngZ3sJBb hWJiYEFjNY43Pyzav2XxVo ryw8XzF12pbZE6BQbpd3cr XD6sRuT3xcVoEBvjx2qxmV 9rZwP1ZOltRJ8bFH2pVPKy sD4ilapyUJKnLaJwtqcsVU DvjGiafkLvYw2fbZguYVU5 YPakB7huuM4jYtO6NUwgZ0 mctR1aTDx6TGrhkZF7HIYz tO7eVF6ypoasa0euBIehHG bpOQVwvrJ0vqV0VEOuyHWd W8KugH8tMBQeLC4lxnqat6 rxHDM2EVbhNRKcMPR5AkZz FWUnl5Xlggm1OcUtp4UsiK AnWCfbQ47wp456NCOrqhLe C6ykuMHheqdnyHKfteggDL vgnxH6OZGlILXuTPjbPBSs XGZzMjJcbGFuZzEwMzNcaG ljaFxmMVxkYmNoXGYxXGxv O0zyKnUoG5JbAPZsFyEaZK zmODenlTMeqZObsQJ2xM1o IZ6xICLgsRUnJ7HcCBFfle MmaLRkSGY8oWTuqJXfQR4p RYqbkCBlo0nrm7RtI1tsrV ftjPR3MB6oZSHxPHWfCIeu c7RelF8kUgadlNBmfsweVG xmczIyXGxhbmcxMDMzXGhp P0vcJfHtIJLdsClqEErxp8 NoXGYxXGNmMlxmczIyXGx0 cmNoXHBhclxwYXJccGxhaW 9wQbGbRsPkLghcMP4lPQBu H5ebzAUvUTWiHNBxK4udYw CxyZ4bkLmlEQpcDcBfNiFm PxDIz333tn1hUCBneWSxir VNnAVlmG1uYJaiMYdvZOmz bANmFLpfo9ehTCYmj4z0fT YeZZXmcbImd2qdCJkjwzTz VCTkgBIcuEIeGNFfr91jUX stnIgjaYbuAMWqk8NiwQuc a6UhHnNzDRncl1BvD29piS JvbCBzbGlkZXMgcnVuIGFs c29yb4ypXBQfPuZ8pDZutU Z9xRXaxWGhd1AcwJhrSAIi m3jvUUEkay9tlpsamMEsm0 IhgM1fuiedRBprsDFsszMt BWQgl8w8qFYxCCHmTQAkZP dheXo0JIMsd413ny5kmpJ2 dFEiLRT1MUeaCGZpCWCijx UgZXZhbHVhdGVkXHBsYWlu XGYxXGZzMjJcbGFuZzEwMz NcaGljaFxmMVxkYmNoXGYx JGkvL6njUbHhJ2NkIOUbTh JazSIgI1xdeMIuSNXxXWma XGYxXGZzMjJcbGFuZzEwMz NcaGljaFxmMVxkYmNoXGYx QOsaJ9zsFqKzZ6PuEEQrQd IgIFxwbGFpblxmMVxmczIy WBixljayPWLhFUtxI8bhNw HlPPNctIagDDiwo9BxNSHo JZQmObfpwtTvFRq0xbVxTZ BhclxwbGFpblxmMVxmczIy FEtdqeheWBRoYXztN6zbUr StJDNszXfqCGeal8OcLXDv XGNmMlxmczIyIEltbXVub2 ufw2BlZ1xarCyasDK1BVBw A1hxpICymEL3LXP6gV5xQC rqnwKbATAto4FkKTMlSFHz KjX0yG1hKUU8SfCWsKusVT BsYWluXGYxXGZzMjJcbGFu ZzEwMzNcaGljaFxmMVxkYm IqASTnWEwtK4iqTnUcU2Lc GMTeMdLbaFvrKWpyIGy6Zm xwbGFpblxmMVxmczIyXGxh sxenLPEtQJoeM9qkIzGfNY PneFdxKKagb2LuIZWtWETl MlxmczIyIHMgTWVkaWNhbC CMVJ47DQJgGVKkqMhsoK8a mYWQFVCcvyA7h1W4TCtfEK GcDDm6BWtmypQdTIKvvO9w EBTfFW3vDJt7yhKsJKPaq8 SiUD9sXYSidHNnXPD7BYZk i8QoI4Rfj3IgNVRiNMAave 7tkoVsWvNNgDOzSLVmue86 HUJgZA3oZ8hjGXCbYQWpob GpeMXns6AdAHFxtKT0fTZe AS7ZJfVOb11bWQOdDCDIxk XsQOTwvOlazOT3frE4nX5x LiBUaGUgRkRBIGhhcyBkZX Elef7scdIvOFDqHMMyv1Wf wRDxdUIvbySdW7Dfg2HaBN Ggyx86NKwdkSDoqz43HL1b O7Eum7OnwK3bAZrjGJKdj9 PecLGndSFeMXIrf9WgJ3ov lotkMSdhvUQzsA1qPHJlIM o8YFSgh1KhPGZqd6GyTgVe qcBkGVOpLNYkGKFapZ28YJ L5mLgkxIsiamIiMT8sLLGd dgRhNHSiPLVxsI9eDAmtdj YcXXWvzjK5j1J7ENnxWPPr gxDwErahMZH4arNbwfY7tS EhI6oujbvrGPfmWDEzb0Ee nT8faYKXiFYbx4KvsXOefY AGpKOgIC1mcfOsHE8lVQK2 ODggKENMSUEtODgpIGFzIH L9QNxhDsuwIBN0siVwYKLy j6QoDUgsR1njU28gmUuykI s5jLYynRojqZNgqXNjFRNy arV3j3I4SFPkv3UrfzsjUV BsYWluXGYyXGZzMjJcbGFu ZzEwMzNcaGljaFxmMlxkYm WkBMOaXNiwV5boEvWgCaUa RllmIMZ2gJ== Gross assessment was [facility] performed at ([facility], = 2777) Department of Pathology, [address] [place] [address], Technical component was [facility] performed at ([facility], = 2778) Department of Pathology, [address] [place], [place] [id number], Professional component [facility] was performed at ([facility], code = 2779) Department of Pathology, [address] [place] [address], [id number] 09:51:25 Test Item Value Reference Range Interpretation Comments Case Report (test code Surgical Pathology = 104) Report Case: [id number] Authorizing Provider: Zena Antonio MD Collected: 10/30/2022 12:00 PM Ordering Location: [address] Received: 10/31/2022 12:04 PM Service Pathologist: Ruby Cole MD Specimens: A) - Mass, bx sigmoid mass B) - Cecum, bx r/o malignancy DIAGNOSIS (test code = [id number] 3220) FuZzEwMzNcZnRuYmpcdWMx IHtccnRmMVxlcGljOTYwMl csmqLdJUJsfRRjQ1Lxzqsa TAbsSR5fAK0wgFmzyERudQ HuLDIpThOhk5xke971tHZw i6ayMTCCgzmuoFr1xAzaL3 6ti8R9FpsnI14itXGbXPP6 QECwPETvxAEeUKAuUEK0PF ZodWVzA0zqKWJbEC1myxdg VEtyCZmmLSYbqUP8LYRhdJ VaB1FqURSuPVlqFIGgieg3 OaIfVx8szSFpmNzuJDypZH JkXHBsYWluXGZzMjAgQSBT UXlOB9wOQQ8UN8RePGPWN3 LAVAdaGUBdH4IdKKRbtPUz CGvjIcFaB39iozDdYX2vZV Q8VZntIUH9SAmqiZUkaUIp r1ObeDPrTLTpf1OfafIhns 8lWIdqYUWcHOpllLN5X6me lnFmLRghUNTly5QfkD6xRs cubB6etU3txBppqY5gkTYh fGZ9xbifUS6QSROhRG1ISL LmSB3ZHZJeLZ4jACNGKeFg YMGrOLNouqDnH3EwvEToEN WzrkARQYFYH6JAYZXNOBOJ P48hCDFFQ1DHIRpgRNNvX9 1zu88rAxAfsMTce6Nuu2g8 bTMbpGaiOX3sqwBmZYQxCu lyBKNcfi2cyWDxeR4flTMt lHD1lT7oYAJuedWSDSlqyY k6QGUyi7KpBKifqJcst0fy EK2hBP4uxDioqkHbE4jvvJ WbqUwuxcUiIIyro0LoTNvc OLHnJF4toPhsCEEfCE5wTP AkY0exiS0upzq5AkWsCKRz UxE0NDEtyxS7Jui0RBXxKD jgh0fps5FcGCShLZr5fOcf TlFlLQWsu5zhtlMwOjFmQY YcTSMwGTMnmRWjE384a0ab r3ysbaUkwJQ4FBGyMTF9WP takpFdibL3HYzebPVtHxE0 IDtccmVkMFxncmVlbjBcYm r2QUOeQ921UWF1dUuyz1sk MYP7RRVqRFRxPtLoRs8czQ JmV953ERWoWLPHUXFfbAm7 NWGtqzFacpDsnJWMm386B3 61p7rsDQLgckVdaSnQjyub z0xfY301VTNmzXHamdYiUn YpIVXtgUZgpHZ5TRYjAW3t mlaoNXreKKxpCUYgznP3PM YdeWIuB4GnTPTrEF3pkfub XRP2DPvlJMViSNK6YaXrEQ Iah5Totro8WySqlf8jdm33 LUU9v5IwoYciIIZ9DNU5Wo ToRf6kwSMiMIUuPG5aBbAe kAOuJBIrbg60jHglXMuhHQ P6UNXjqgJqi6Vgh6tzLvEh oyHnG3wjP0XmFLBmKODiVL GpZiHgxlGxu4Ekx7IkmWKy sHd2z4vyFGEyFHRyeQquz2 xoWFO1DDGuvWBoO8olmZ4g BLAqAV9uzehbc1cvHBrfEX dyKBOwzFL2ruM1NQWklQNp X6QajE6dZXGjZCszYGSpno o1XnIaEy1jpQQghOhtHKrn YmtwYWdlXHBnbmNvbnRccG duZGVjXHBsYWluXHBsYWlu XGYwXGZzMjRccWxcbGFuZz EwMzNcaGljaFxmMVxkYmNo BRCrCYomT6ahFtIbFzBnSa p3VECuxULqAHLaIrw5ZLOe qZOeUUIRiAwwjY6iCJNbbH mrkI9ikAD2JMEmwzCuwTRQ sP2aGAQRzC5qNuS1LWZhGn e1SYF3UaJhgVKitE6= COMMENT (test code = c5wswRIeSCAgkMB0UcLzKV 3358) Mqi2cho5KwfUZslAUuHOfu lZTwihGhfk96pZX7kD03EM 8jDVEaBtT1NSZqaiB4Oaa1 EOOiDGVnzLCbG276g4nfn0 ibgqXyrLI3zNzqIOKpngmo YrZ9ZKqoLDWfxpgdGLn6UY fdRUZlcOA1OSGdrOLpV7Rl OGKsHC0chta4XBT2UIcjCV YjYgO5ICKfbRTyETRnmNcj ZHida419JAZ8HcFiDQEils LjuMfdfQ9aOyThTIZIgpTc o4QigCisURQtyR6zrMFhUM ZpZXdlZFxwYXJccGFyZFxw YXJ9 CPT Code(s) (test code q8mzlRNeYAWhmBV9DtPmKA = 1540) Pvb8bhj3AxtIYarZDfPCcm qNGxcqCrtw17jWN0kA89RH 7pDQQaIhC8CGRzsiI7Pxq8 KJCgOPStaYZyR269l1ebd0 dlnuKeeRH5tUpaPXDqefeg FeZ6UQrwSMMuyrhdSTo3DQ ttZHEerFH4RZMklTRbI7Xk QPJwHN3stdd8RUU7JZtzRP KeQpC9KRMbeMGdLXMawSyx ZZpmz491HSC8FgWvZQKunj TnyIypyO6yMjQsYSQ5KUBl EAJ5BwbvBHZpJRrfJLDecQ LoBJr5AtVkgGRqsHUwsM== CLINICAL HISTORY (test n9ggcFSbYSZmvBK9VlTxVN code = 3356) Vbg6abk4VicQDweFJeWYxa pVXytmDofh65iRT5oB87KU 7fRNTmUxF2VXVqkdQ1Lrq3 GVHuLSXbhBZvC630u5mcw1 yfxxQxvMF1wRodVRRimyix InL5SVhgJHXvnmoyZCw3WB odJMDomPR1KCWtlJObO6Zm MEKfKN5bwgy1PNE7OXxsSF UuSkU7FTOihLAcAFKscXde LFmvb049UGU9LxFqKITuwj DfzDrjaV0hBoQyHMJPv9cb wyaqNH7mh5ZxwULjeW== GROSS DESCRIPTION (test c6apfFIqJPEsmCMWZIUbV7 code = [id number]) sfzxBeWFEetWLuU3Xyrott YFobJR3wBH3taQcnsAVavF BcYR1RKCZnPkZyZKOvlSMu qkIbXyFqHIYjkHHdrYG4XO NqTE5mjpkwPNxsHQurFLXf tyR9XATckONzF9ZfMSFmLS 4ebihyFCF0LFjsgD3qqzUG XbeiMx7esBHufNvwHnLuWo NoYXJzZXQwXGZuaWwgQXJp WYq9kY9SLvetT08wg6I1Za c0SZKzAHYyQ7XlWY3aSMXk dQArR65KQlupRHB7RWPTLh rpFKYyHG3Qc3fcBQVfvTOi IXT6COmhbUGyVBCsQMQlDB z5QWKtQHdemEXjOC6mdRml HoaypFvyq6MlePVxLShvTD EdNAWfCQlqIZCzFU5LZoDk YVovYXx2OvhvJCz5PQj6EG 7KGlJrPZDgVlY4MeUkZLHb XNf4JTjxNF0FIFQ5WzQ2Lh IyJPL5SMXfRMLfFSHfBkLq XGYgQXJpYWwgXFxmbCBcXG 5jfVxwbGFpbiBBLiBNYXNz CbqeCQZvTJudXAPeZ35zl5 ICk7NrJJ1QHEk9zlLjjgxb gC0dZZJxdgUzDBbsgVQoG7 xsR4RcUXTkDwGgWcAbUQa0 YQMysA7aCe3bhMZeyW4qrT BpBGsiCHH3rNHwWQBzLFXe FPHxMV21LEnGRZNwxgQcVK wgbWVkaWNhbCByZWNvcmQg bnVtYmVyIGFuZCBcdTgyMj YhAVx6A21ux6FhMSPvPFJg qRf5lZDfMIC6TB3clMjbep MuwtVlG3NjMORuk01ykVG2 xXDkaNRtJoXpY23cltXsYI gwLjYgeCAwLjIgeCAwLjIg B53ggL4nKFjxjhZwWTIkGP 0vSUIcWYLooHEjqY5wweQl huWsiMHkhOW3KUPvtE5ilY 17geVqnfUHCZw0DVCqSNKo Bqb1IZZoNGFiefJVHdrjHK UlXTixW9DkMZHbAxEkHYcv lNjyqV3fGRUaN91zd1TFj3 BxBKSfMIqsk3bsuPzcw6Gb dGVuZFxwYXJccGFyZFxzbC 8uMrCvl8tzrNl9NYhlbuZ8 GRTrnt9IYvksRiqhuMzdd6 VjdCBcXGlkIDUxMDAyIFxc FDSxRD2XQeItQVdgDMl5Fk hgRMx1UNm6IL4XFiGtWFTb WkI4YtPnDILdBUx3TFdoBU 8BOLH4Wwp1IHM1PQQ7FGQp MyBcXHQgMiBcXGYgQXJpYW vtFDnocDNtDV8qwZlrknF4 MYLuBAtjBBJkMPRyX4MlHc ynSCJfJVomHDNwR62ve2NN o6TtIA5JYBu5ybDjuaagvB 8dYMErqgBpRCmacAEsY4zw W7EpJSIzMqWkEnStOVi4PN EtiM7uTt6xnOHdvD6myWNv ZRacJPB9mRQzMXZaHPLeAA JmOK67USiLEKIppdGeCMxg bWVkaWNhbCByZWNvcmQgbn VtYmVyIGFuZCBcdTgyMjAg NXx4X7GwP1ZgYsNczfBcfY VsdGlwbGUgdGFuLXBpbmsg fEKhHUh6yLMtZLHfHcJrlF mjs9OaRQWmTXoiII60dfKf OK19PPfkZM4xBCypVN5qJK MbNXsxKGJhJ5TuG4Y0GWpc IIPObMPvo9UyH9knQK7ngS Cdi8EjxTm0qIQtYApaMYXp qK3rmS0pLrZxFIKqmgUGYh frIVZpJIieB6OjHUyqeIut cmluZSBOYWplcmEsIFBBIF G0wZBtwfHHGkuxgGEuvvyy cGljTmVzdERvYzBccGxhaW 26VJAcrAEjEAM5MI9zNOEk xbxcPWCeIRXlNCN0LVtinK 15hKHfTNQmLVQgpAFbvF3T MGEkTTW6RBiotF60rJBgRU 6NJJStZCR2ATPcnLXyELF5 SZ4wfS1NfN== MICROSCOPIC DESCRIPTION y8yzjIOiKRBslDD9ZvFwVG (test code = 3371) Her8ojo9KguOSbwUChUBhh mEAvsrQjlg38mQX2rD68KY 9mISEsZeL6PEVhyvK4Vzx1 OULzMJWxzFVdR012r8laz0 ctepGphEN9DQTpLKBxH5Wz IC8nVRKxhFCcT53knJMhRF K0AZWnDCVknZYuWGAnYEP6 HGQrrHCyJ9goEQYvWW5onf yvFIcbOMeyABIfaWQ0XPEq dPRkG9ZmKIAeVIfyAUTbbf s9AgFcJz2suPEhwMseJBhy YXJkXHBsYWluXGZzMjAgUG AbGc7ffJQiLGPcxiqmTWNu KuhNK6juBFGcUCYhckeeXZ VfJzbgFsWrYbPTWDyVQ9sf AWBaUK1osA0cjOwnwC9lhL YweRJ5uaxoDViSDavzKTHq nDjqUwTrk3YtSBwksQH5E4 ggUmVwYWlyIChNTVIpIFBy h7ElnC4sBUlrATMxCbPsQ2 ZgGM1GUNJ2KS56GXA0RN77 E5gnNJMsCLnfxiBhp8pxou fxBXRnKZDLYotXlqNpH9Kq bnVjbGVhciBleHByZXNzaW 4dGICswmXBL9h8XohmiHXk dIZmcHMeQYVsPPQ6jJLpa0 Frh97pyMHkHYRFEgK6JP60 FBX3IS64E1eqGBLbTMlqwn Hip6onnqzzWZXtBFHuK0ik ji47xdNjzr9rssXvjFmcl2 LzBnA2xPCstUFuhU06EZUv RSioA36prUTglEE7qHEySY ludGFjdCBudWNsZWFyIGV4 sMOdn4Bus95xdNTuQEXvwi xwYXJcYlxjZjEgSUhDIElu cWRxiCFxtDO7oJ3aNgstWF AoIcUzU5QiCC5nJHycw7Vj f6IxfaNxwXSgaaCprPLcQV MetO4mEM5dXF7MMcPvek75 TMdzvdubrS76RGIfi2KyHm jctUT8HQ4aRF0lQ1Lxh6N5 KEsnzOJyLAjcq7AtWvcseH B8AMbaC5vpSOSQUIuoLKTk hyudVSHlqWwbLnPaGm9HGM ogIFRoZXJlIGFyZSBleGNl vAZbi96fOXQjHCYrWGVqBe 53CVYXIUHogP05ZSFwztA5 ZWNzz64aNaLIvVIkLLYyDW I2aNMuFJFmc4ErORFgo2Od WyFtX00rf1vuXHAnXJRolv Nxn14vMJIzz56xYWLuIFSf gOfjpGQrmOBtj6XwXIixwL bmlyW4qWIhLFalttQ2kJSc B058ouHwlCmxNaEihqUrII TsjN3cdhHzJHZ8smJbr4Tq y2EieYudOG3jVVXzJq7wKY dedd9xqM3kDOYov3Houray XHBhclxwYXJkXGkwXGNmMF xwYXJ9 SPECIAL STUDIES (test f9vdfTEdYLHvj1fkMJTerY code = 3376) FuZzEwMzNcZnRuYmpcdWMx TItbreBsVYzpa3HcE0OrBg AwMFxhbnNpXGRlZmxhbmcx UVXjEKS7mtDlLLPjHUnaOI XtHGbxOj4oaXRhtVezYrHd GZNgc1hnhhCWjpwaqQt7i3 jnTWHvUeD5nJVgTQlzA0zx pkJsfKQiC0NnrMHmtIh6o0 euNlKhQvJ2cKVqVJkaC8gm vtKdvXDwSFRoANd1mN51MI OhmO0ycQGwTLxyawCpJvF2 GXvyPXLlIwX7SMDnyDMaTP TfF8czYXEdHMerMOHqRCyh xGWfIHK7xTqzf8M1yHTylY WuvMgiIoZhXmOzItHMf3Uo JZm7aZhzR4MeVVJaTzD4fN QgUGFyYWdyYXBoIEZvbnQ7 wTcxwbZbz27pwOKxNBLpFG SrHnGtyRblOMKoWNUDz0En sPknCFO3hWy4bXpoJtddPQ C9Veg0CU8nmn74zja2cJnl VSZqhcamHaT9VKirDNEkhu cpGMe7VAwgAEMvjFU2QYGp dNTuL8QkRAYpES1nuqp5ZC I6GBvbPTIwLtV9CCKqyVYk AUHauTonEUsyh332BTK7Ll FaFK0aJ3Ivp8J0zK8uqROz YYEfgPQaJpFcCQChtv3syP XvWGipu8QwQAT8bzY5zVIc qIGpSRSwDG58Ygfqq8GdHv oxs9RhA57drTQ8DVxft4at GW2uYrO5faVeAAush7ycuQ 7mAgF3HCkfVY3pXN1vDLHv mA6agafcDGInWbBeceumIJ JooIzvmqUjIb6xoYxoGMI8 UOquD2scqC9hBdO9WLodZ3 xpxB2mABw4ELkmzXU5GAMl xC3rAG7vvbdxk9syBXptEE ypBWNygbU4ywE2FHMarTLi P8YmdS8yEVQrMT6qfnnep6 gbTWF7FAchKGWjSZG3MbWh ICGon1Pnaag1HuMyb7XapC PmOOkbW29gh472KBWuxxGj B7iwxZMkmjpmjWEyefksCX jaikQ1GVJpIMTxGUtsUELj XGZzMjJcbGFuZzEwMzNcaG ljaFxmMVxkYmNoXGYxXGxv E3svNcHlJ0VgXFFmRpLgBB ugYZamxBQquUCrsBP6tR3g EV9dRQGfiZEcG1SiBBIric JsjASwPJZ7wVGecLQbTB8r RHjybWItf5bpc0DlN6oqwW zqwIP5JT9xMXVcYOAiXVam g3HqmJ7eFnfoaQLnajttWT xmczIyXGxhbmcxMDMzXGhp Y9jjRiVhTCWzdWjuZYgkh6 NoXGYxXGNmMlxmczIyXGx0 cmNoXHBhclxwYXJccGxhaW 5rRbEzZyUwAcemCI7wCFXw U5tjqFXlYBRtHRYsR2pnYq YrxL3bxDerCJmzZlJsFuRr HqPYz241bn4tPSHzxPWpgd LAlKDftX0tOYuiNIshOEjm vXAuMTfcj3txQVZot9f2gH GpISVchrLau9qrWBppzaSl UZYasDWzpHUyPTDul43tUX pppNejpDggVXPus5EnrFrl c1OfRiBsAWehc9BaC11avZ JvbCBzbGlkZXMgcnVuIGFs h15yb6xiIZVaJhH0aLFsqG A2vPJkfGMom9RqaDdbXYSe n9srPDBnhe4lgoyntDQff2 RcnI8fdyviTRnpuXTenwUm KXGyy8h9nCVsXGEfSAHaEI uqsCl1HJXxd370ro1vrpU8 qDUzRON2QQanKPUgJRAnwt UgZXZhbHVhdGVkXHBsYWlu XGYxXGZzMjJcbGFuZzEwMz NcaGljaFxmMVxkYmNoXGYx PWkqN7sbTqLpZ6RiHZRxTd GtxRDbS9basFEyBNGpCQtt XGYxXGZzMjJcbGFuZzEwMz NcaGljaFxmMVxkYmNoXGYx OQsmM1oqCsFnS0HvKDPnOt IgIFxwbGFpblxmMVxmczIy GNsvqgcvUIIoKOtrJ2ylTr GpBIYynUsxRUaeg2IuQUKs WHVvNfmxofApFAs9qqZjBN BhclxwbGFpblxmMVxmczIy VWiumvakLJGmOGkkP5rsNy QzOMFlsAbqUYzeg6FxTLAy XGNmMlxmczIyIEltbXVub2 edh1ZsQ9gheVlmbRO2YAZf E8cwwPVxhGV1FLY5eR1pID fjqvWbOULpk2DdVSQtMMTl RbW5lN1sYFU8VxMYiQdmOG BsYWluXGYxXGZzMjJcbGFu ZzEwMzNcaGljaFxmMVxkYm TnIJAtDEnhW0dkDuRrH9Nv ZTVwSfIiwGppEZyiPDk6Mm xwbGFpblxmMVxmczIyXGxh mnrhYHMzQXtoX4zoQfDnUU XjeGjpPUuoj7JuUELhULJp MlxmczIyIHMgTWVkaWNhbC LREO02QSPeCOHmaEhzaE0i kPQZRCEygfO7o6X4YKxvVC MrPTj8DIzacfOvYZHgiJ5g LQPnYK5nWMk8yiBnUQJlf2 IoVW0bCPTkyNIfNII9EULs w8DcA6Suk8NgGNXyWOXpej 7hoaJvBpASpNSrHIDxpd81 ZGMyZP8xI7bvERUdZXBoah VelMUvv4XmAJFqqDO8oEHc CP5RQbCSr87dMVNoBQNUih MhSWUloJredSS5vbW4fP8k LiBUaGUgRkRBIGhhcyBkZX Sllw5bcrAdMJFhDEZod5Tx rRGusTEhotPrC0Zjf1WdZA Myca19SQlqoCRgar05WR4y L5Qtz9HikF1tYOutHRGtb2 IvnTZvhGQpKYFml0DbF3xf fflnODmzdNNohL7kPOWrQR c5YZYte8QfWZDsy5XoObIr vtYqKPDoPMKuAPWzfG88WD B2bBrulPxfchFtUN3eZNJz mvWkSTDrATEymQ1jCLvuvo NeXOBvkeX9g7B4RCisRWYe xyCbOkkbVDQ1ybCgksU7dR GnQ6meiqocBEjaFBJjy9Ha bE1bgVSHjZWgb0VjjPFhvE LKtUZvAI9rouVsDQ1hMPC5 ODggKENMSUEtODgpIGFzIH J6VSsmHmqwGWQ2dyOeJQUl a5JxAOysH1rdB26lkCnulT n6uCEpySsbdZXphYLfBZHm poM9i3T4GUPva0FcfzwjAQ BsYWluXGYyXGZzMjJcbGFu ZzEwMzNcaGljaFxmMlxkYm CmVVVaPAjrP8kqKfYpXrCu NneqVAH1mV== Gross assessment was [facility] performed at ([facility], = 2777) Department of Pathology, [address] [place] [address], Technical component was [facility] performed at ([facility], = 2778) Department of Pathology, [address] [place], [place] [id number], Professional component [facility] was performed at ([facility], code = 2779) Department of Pathology, [address] [place] [address], [facility] [id number] 09:51:25Surgical Pathology Report Case: [id number] Authorizing Provider: Zena Antonio MD Collected: 10/30/2022 12:00 PM Ordering Location: [address] Received: 10/31/2022 12:04 PM Service Pathologist: Ruby Cole MD Specimens: A) - Mass, bx sigmoid mass B) - Cecum, bx r/o malignancy A SIGMOID MASS, BIOPSYSuperficial fragments of at least intramucosal adenocarcinomaMismatch repair protein by immunohistochemistry (MLH1, MSH2, MSH6 and PMS2) are intactB CECUM, LESION, BIOPSYColonic mucosa with mild nonspecific chronic inflammationNegative for dysplasia or malignancy Signing Pathologist Direct Phone Line: [phone] signed by Ruby Cole MD on 11/03/2022 at 9:51 AMEndoscopic report [id number] massA. Mass.Received in formalin labeled with the patient's name, medical record number and "mass" are multiple rodriguez-pink irregular soft tissue fragments (0.6x 0.2 x 0.2 cm in aggregate). The specimen is submitted in toto in A1-A2.B. Cecum.Received in formalin labeled with the patient's name, medical record number and "cecum" are multiple rodriguez-pink irregularsoft tissue fragments (0.4 x 0.2 x 0.1 cm in aggregate). The specimen is submitted in toto in B1.SHUN Freeman StudentPerformedBLOCK [id number] (IHC) Testing for Mismatch Repair (MMR) Proteins MLH1:Intact nuclear expressionMSH2:Intact nuclear expressionMSH6:Intact nuclear expressionPMS2:Intact nuclear expression Background nonneoplastic tissue/internal control with intact nuclear expressionIHC Interpretation:No loss of nuclear expression of MMR proteins: low probability of microsatellite instability-high(MSI-H)NOTE: There are exceptions to the above IHC interpretations. These results should not be considered in isolation, and clinical correlation with genetic counseling is recommended to assess the need for germline testing.The interpretation of this case included the use of immunohistochemistry or special stains.Control Slides Examined: In- house known positive controlswere evaluated along with the test tissue. These control slides run alongside of the patients sampleshow appropriate staining. Internal positive and negative controls when available are evaluated Immun ohistochemistry technical testing was performed at [facility], Pathology Laboratory where it was developed and its performance characteristics were determined. It has not been cleared or approved by the U.S. Food and Drug Administration. The FDA has determined that such clearanceor approval is not necessary. The test is used for clinical purposes. It should not be regarded as investigational or for research. This laboratory is certified under the Clinical Laboratory Improvement Amendments of 1988 (CLIA-88) as qualified to perform high complexity clinical laboratory testing.[facility], Department of Pathology, [address] [place] [address], [facility], Department of [facility]ology, [address] [place] [address], [facility], Department of [facility], [address] [place] [address], QCZXJYUNIA [id number] 09:42:40 Test Item Value Reference Range Interpretation Comments HEMOGLOBIN A1C 7.4 % See_Comment H [Automated m essage] ELECTROPHORESIS (X-1) The system which (test code = 3811) generated this result transmitted ref erence range: <=5.6%. The reference range was not used to int erpret this result as normal/abnormal . "The A1c is measured using a NGSP-certified method. HbA1c value equal to or greater than 6.5% as thediagnosis cutoff for diabetes. An HbA1c value of 5.7- 6.4% indicates increased risk for diabetes (prediabetes)."BASIC METABOLIC PANEL 2022-11-03 05:50:44 Test Item Value Reference Range Interpretation Comments SODIUM (BEAKER) 139 meq/L 136-145 (test code = 381) POTASSIUM 3.3 meq/L 3.5-5.1 L (BEAKER) (test code = 379) CHLORIDE (BEAKER) 107 meq/L 98-107 (test code = 382) CO2 (BEAKER) 25 meq/L 22-29 (test code = 355) BLOOD UREA 14 mg/dL 7-21 NITROGEN (BEAKER) (test code = 354) CREATININE 1.60 mg/dL 0.57-1.25 H (BEAKER) (test code = 358) GLUCOSE RANDOM 92 mg/dL 70-105 (BEAKER) (test code = 652) CALCIUM (BEAKER) 7.2 mg/dL 8.4-10.2 L (test code = 697) EGFR (BEAKER) 49 Interpretatio n of eGFR (test code = mL/min/1.73 values Stage De scription 1092) sq m Result G1 Mary l or high >=90 G2 Mildly decreased 60-89 G3a Mildl y to moderately 45-5 9 G3b Moderately to s everely 30-44 G4 Severl y decreased 15-29 G5 Kidney failure <15Reported eGF R is based on the CKD-EPI 2020 equation that d oes not use a race coefficientEsti mated GFR is not as accur ate as Creatinine Mary echo in predicting glom erular filtration rate . Estimated GFR is not appl icable for dialysis patien ts Rn Neonatal Icu ID - NABILA [id number] 05:50:20 Test Item Value Reference Range Interpretation Comments MAGNESIUM (BEAKER) (test code = 1.6 mg/dL 1.6-2.6 627) Rn Neonatal Icu ID - NABILA GCBC W/PLT COUNT & AUTO [id number] 05:33:13 Test Item Value Reference Range Interpretation Comments WHITE BLOOD CELL COUNT (BEAKER) 11.6 K/ L 3.5-10.5 H (test code = 775) RED BLOOD CELL COUNT (BEAKER) 2.83 M/ L 4.63-6.08 L (test code = 761) HEMOGLOBIN (BEAKER) (test code = 6.2 GM/DL 13.7-17.5 L 410) HEMATOCRIT (BEAKER) (test code = 20.7 % 40.1-51.0 L 411) MEAN CORPUSCULAR VOLUME (BEAKER) 73 fL 79-92 L (test code = 753) MEAN CORPUSCULAR HEMOGLOBIN 21.9 pg 25.7-32.2 L (BEAKER) (test code = 751) MEAN CORPUSCULAR HEMOGLOBIN CONC 30.0 GM/DL 32.3-36.5 L (BEAKER) (test code = 752) RED CELL DISTRIBUTION WIDTH 16.8 % 11.6-14.4 H (BEAKER) (test code = 412) PLATELET COUNT (BEAKER) (test 266 K/CU MM 150-450 code = 756) MEAN PLATELET VOLUME (BEAKER) 10.2 fL 9.4-12.4 (test code = 754) NUCLEATED RED BLOOD CELLS 0 /100 WBC 0-0 (BEAKER) (test code = 413) NEUTROPHILS RELATIVE PERCENT 76 % (BEAKER) (test code = 429) LYMPHOCYTES RELATIVE PERCENT 15 % (BEAKER) (test code = 430) MONOCYTES RELATIVE PERCENT 9 % (BEAKER) (test code = 431) EOSINOPHILS RELATIVE PERCENT 0 % (BEAKER) (test code = 432) BASOPHILS RELATIVE PERCENT 0 % (BEAKER) (test code = 437) NEUTROPHILS ABSOLUTE COUNT 8.79 K/ L 1.78-5.38 H (BEAKER) (test code = 670) LYMPHOCYTES ABSOLUTE COUNT 1.75 K/ L 1.32-3.57 (BEAKER) (test code = 414) MONOCYTES ABSOLUTE COUNT (BEAKER) 1.00 K/ L 0.30-0.82 H (test code = 415) EOSINOPHILS ABSOLUTE COUNT 0.03 K/ L 0.04-0.54 L (BEAKER) (test code = 416) BASOPHILS ABSOLUTE COUNT (BEAKER) 0.03 K/ L 0.01-0.08 (test code = 417) IMMATURE GRANULOCYTES-RELATIVE 0.30 % 0.00-1.00 PERCENT (BEAKER) (test code = 2801) HIV-1 ANTIGEN WITH HIV-1/2 [id number] 15:47:41 Test Item Value Reference Range Interpretation Comments HIV-1 ANTIGEN WITH HIV 1\\T\\2 Nonreactive Nonreactive ANTIBODY (2) (BEAKER) (test code = 2586) Rn Neonatal Icu ID - BSHEPATITIS PANEL, [id number] 15:47:40 Test Item Value Reference Range Interpretation Comments HEPATITIS A IGM ANTIBODY (BEAKER) Nonreactive Nonreactive (test code = 498) HEPATITIS B CORE IGM ANTIBODY Nonreactive Nonreactive (BEAKER) (test code = 645) HEPATITIS C ANTIBODY (BEAKER) Nonreactive Nonreactive (test code = 367) HEPATITIS B SURFACE ANTIGEN (2) Nonreactive Nonreactive (BEAKER) (test code = 2585) Rn Neonatal Icu ID - BSCOMPLEMENT COMPONENT [id number] 15:25:21 Test Item Value Reference Range Interpretation Comments C4 COMPLEMENT (BEAKER) (test code = 35 mg/dL 15-57 394) Rn Neonatal Icu ID - BSCOMPLEMENT COMPONENT [id number] 15:25:21 Test Item Value Reference Range Interpretation Comments C3 COMPLEMENT (BEAKER) (test code = 98 mg/dL 82-193 393) Rn Neonatal Icu ID - [id number] 14:36:52 Test Item Value Reference Range Interpretation Comments MAGNESIUM (BEAKER) (test code = 1.6 mg/dL 1.6-2.6 627) Rn Neonatal Icu ID - MARCOLIPID [id number] 14:36:51 Test Item Value Reference Range Interpretation Comments TRIGLYCERIDES (BEAKER) (test code = 103 mg/dL 540) CHOLESTEROL (BEAKER) (test code = 109 mg/dL 631) HDL CHOLESTEROL (BEAKER) (test code 33 mg/dL = 976) LDL CHOLESTEROL CALCULATED (BEAKER) 55 mg/dL (test code = 633) Triglyceride Reference Range: Low Risk <150 Borderline 150-199 High Risk 200- 499 Very High Risk >=500Cholesterol Reference Range: Low Risk <200 Borderline 200-239 High Risk >240HDL Cholesterol Reference Range: Low Risk >=60 High Risk <40LDL Cholesterol Reference Range: Optimal <100 Near Optimal 100-129 Borderline 130-159 High 160-189 Very High >=190 Rn Neonatal Icu ID - MARCOMicroalbumin, random [id number] 13:11:26 Test Item Value Reference Range Interpretation Comments Microalbumin, 193.2 mg/dL Urine (test code = 84796-6) ELINA (test code = Reference Range: No ELINA) NormalsOperator ID - JANOperator ID - [facility] CenterMicroalbum[facility], random [id number] 13:11:26 Test Item Value Reference Range Interpretation Comments Microalbumin, 193.2 mg/dL Urine (test code = 69503-5) ELINA (test code = Reference Range: No ELINA) NormalsOperator ID - JANOperator ID - [facility] CenterMicroalbumin, random [id number] 13:11:26 Test Item Value Reference Range Interpretation Comments Microalbumin, 193.2 mg/dL Urine (test code = 64564-5) ELINA (test code = Reference Range: No ELINA) NormalsOperator ID - JANOperator ID - [facility] CenterMicroalbumin, random [id number] 13:11:26 Test Item Value Reference Range Interpretation Comments Microalbumin, 193.2 mg/dL Urine (test code = 99697-1) ELINA (test code = Reference Range: No ELINA) NormalsOperator ID - JANOperator ID - [facility] CenterMicroalbumin, random [id number] 13:11:26 Test Item Value Reference Range Interpretation Comments Microalbumin, 193.2 mg/dL Urine (test code = 52709-7) ELINA (test code = Reference Range: No ELINA) NormalsOperator ID - [facility]ONAOperator ID - [facility] CenterMicroalbumin, random [id number] 13:11:26 Test Item Value Reference Range Interpretation Comments Microalbumin, 193.2 mg/dL Urine (test code = 71895-5) ELINA (test code = Reference Range: No ELINA) NormalsOperator ID - [facility]ZONAOperator ID - [facility] CenterMicroalbumin, random [id number] 13:11:26 Test Item Value Reference Range Interpretation Comments Microalbumin, 193.2 mg/dL Urine (test code = 78884-3) ELINA (test code = Reference Range: No ELINA) NormalsOperator ID - [facility]ZONAOperator ID - [facility] CenterMicroalbumin, random [id number] 13:11:26 Test Item Value Reference Range Interpretation Comments Microalbumin, 193.2 mg/dL Urine (test code = 38602-8) ELINA (test code = Reference Range: No ELINA) NormalsOperator ID - [facility]ZONAOperator ID - [facility] CenterMicroalbumin, random [id number] 13:11:26 Test Item Value Reference Range Interpretation Comments Microalbumin, 193.2 mg/dL Urine (test code = 79976-1) ELINA (test code = Reference Range: No ELINA) NormalsOperator ID - [facility]ONAOperator ID - [facility] CenterMicroalbumin, random [id number] 13:11:26 Test Item Value Reference Range Interpretation Comments Microalbumin, 193.2 mg/dL Urine (test code = 68670-4) ELINA (test code = Reference Range: No ELINA) NormalsOperator ID - [facility] ARIZONAOperator ID - [facility] CenterMICROALBUMIN, RANDOM [id number] 13:11:26 Test Item Value Reference Range Interpretation Comments MICROALBUMIN URINE (BEAKER) (test 193.2 mg/dL code = 1794) Reference Range: No NormalsOperator ID - JANOperator ID - JANBASIC METABOLIC [id number] 13:01:10 Test Item Value Reference Range Interpretation Comments SODIUM (BEAKER) 138 meq/L 136-145 (test code = 381) POTASSIUM 3.1 meq/L 3.5-5.1 L (BEAKER) (test code = 379) CHLORIDE (BEAKER) 104 meq/L 98-107 (test code = 382) CO2 (BEAKER) 27 meq/L 22-29 (test code = 355) BLOOD UREA 13 mg/dL 7-21 NITROGEN (BEAKER) (test code = 354) CREATININE 1.71 mg/dL 0.57-1.25 H (BEAKER) (test code = 358) GLUCOSE RANDOM 115 mg/dL 70-105 H (BEAKER) (test code = 652) CALCIUM (BEAKER) 7.4 mg/dL 8.4-10.2 L (test code = 697) EGFR (BEAKER) 45 Interpretatio n of eGFR (test code = mL/min/1.73 values Stage De scription 1092) sq m Result G1 Mary l or high >=90 G2 Mildly decreased 60-89 G3a Mildl y to moderately 45-5 9 G3b Moderately to s everely 30-44 G4 Severl y decreased 15-29 G5 Kidney failure <15Reported eGF R is based on the CKD-EPI 2020 equation that d oes not use a race coefficientEsti mated GFR is not as accur ate as Creatinine Mary echo in predicting glom erular filtration rate . Estimated GFR is not appl icable for dialysis patien ts Rn Neonatal Icu ID - JANHEMOGLOBIN AND [id number] 12:32:28 Test Item Value Reference Range Interpretation Comments HEMOGLOBIN (BEAKER) (test code = 7.2 GM/DL 13.7-17.5 L 410) HEMATOCRIT (BEAKER) (test code = 24.4 % 40.1-51.0 L 411) Rn Neonatal Icu ID - 6000U/S, RENAL, [id number] 09:42:00Reason for exam:->[facility] : 1960 Sex: MFINAL REPORT TECHNIQUE: Grayscale ultrasound of the kidneys and bladder. INDICATION: CARSON. COMPARISON: Ultrasound from 06/14/2022. FINDINGS: RIGHT KIDNEY: The right kidney measures 12 x 5.9 x 6.1 cm with a cortical thickness of 1.6 cm. Increased renal cortical echogenicity. No solid mass lesions. No hydronephrosis. Renal artery and vein are patent. LEFT KIDNEY: The left kidney haafvcoq03.7 x 6.4 x 6.5 cm with a cortical thickness of 2 cm. Increased renal cortical echogenicity. No solid mass lesions. No hydronephrosis. Renal artery and vein are patent. BLADDER: The urinary bladder volume is 26 mL. IMPRESSION: The increased renal cortical echogenicity is concerning for medical renal disease. No hydronephrosis Signed: Breanna Alvarado MDReport Verified Date/Time: 11/02/2022 09:42:37 C METABOLIC [id number] 06:04:27 Test Item Value Reference Range Interpretation Comments SODIUM (BEAKER) 140 meq/L 136-145 (test code = 381) POTASSIUM 2.8 meq/L 3.5-5.1 L (BEAKER) (test code = 379) CHLORIDE (BEAKER) 106 meq/L 98-107 (test code = 382) CO2 (BEAKER) 27 meq/L 22-29 (test code = 355) BLOOD UREA 12 mg/dL 7-21 NITROGEN (BEAKER) (test code = 354) CREATININE 1.66 mg/dL 0.57-1.25 H (BEAKER) (test code = 358) GLUCOSE RANDOM 102 mg/dL 70-105 (BEAKER) (test code = 652) CALCIUM (BEAKER) 7.3 mg/dL 8.4-10.2 L (test code = 697) EGFR (BEAKER) 47 Interpretatio n of eGFR (test code = mL/min/1.73 values Stage De scription 1092) sq m Result G1 Mary l or high >=90 G2 Mildly decreased 60-89 G3a Mildl y to moderately 45-5 9 G3b Moderately to s everely 30-44 G4 Severl y decreased 15-29 G5 Kidney failure <15Reported eGF R is based on the CKD-EPI 2020 equation that d oes not use a race coefficientEsti mated GFR is not as accur ate as Creatinine Mary echo in predicting glom erular filtration rate . Estimated GFR is not appl icable for dialysis patien ts Rn Neonatal Icu ID - KALLIOHEPATIC FUNCTION [id number] 06:04:21 Test Item Value Reference Range Interpretation Comments TOTAL PROTEIN (BEAKER) (test code = 5.2 gm/dL 6.0-8.3 L 770) ALBUMIN (BEAKER) (test code = 1145) 1.7 g/dL 3.5-5.0 L BILIRUBIN TOTAL (BEAKER) (test code 0.3 mg/dL 0.2-1.2 = 377) BILIRUBIN DIRECT (BEAKER) (test 0.2 mg/dL 0.1-0.5 code = 706) ALKALINE PHOSPHATASE (BEAKER) (test 76 U/L 40-150 code = 346) AST (SGOT) (BEAKER) (test code = 13 U/L 5-34 353) ALT (SGPT) (BEAKER) (test code = 8 U/L 6-55 347) Rn Neonatal Icu ID - [id number] 05:46:16 Test Item Value Reference Range Interpretation Comments PREALBUMIN (BEAKER) (test code = 586) 7 mg/dL 14-45 L Rn Neonatal Icu ID - MARCOCBC W/PLT COUNT & AUTO [id number] 05:44:01 Test Item Value Reference Range Interpretation Comments WHITE BLOOD CELL COUNT (BEAKER) 11.6 K/ L 3.5-10.5 H (test code = 775) RED BLOOD CELL COUNT (BEAKER) 3.10 M/ L 4.63-6.08 L (test code = 761) HEMOGLOBIN (BEAKER) (test code = 6.8 GM/DL 13.7-17.5 L 410) HEMATOCRIT (BEAKER) (test code = 22.4 % 40.1-51.0 L 411) MEAN CORPUSCULAR VOLUME (BEAKER) 72 fL 79-92 L (test code = 753) MEAN CORPUSCULAR HEMOGLOBIN 21.9 pg 25.7-32.2 L (BEAKER) (test code = 751) MEAN CORPUSCULAR HEMOGLOBIN CONC 30.4 GM/DL 32.3-36.5 L (BEAKER) (test code = 752) RED CELL DISTRIBUTION WIDTH 16.8 % 11.6-14.4 H (BEAKER) (test code = 412) PLATELET COUNT (BEAKER) (test 297 K/CU MM 150-450 code = 756) MEAN PLATELET VOLUME (BEAKER) 9.4 fL 9.4-12.4 (test code = 754) NUCLEATED RED BLOOD CELLS 0 /100 WBC 0-0 (BEAKER) (test code = 413) NEUTROPHILS RELATIVE PERCENT 75 % (BEAKER) (test code = 429) LYMPHOCYTES RELATIVE PERCENT 16 % (BEAKER) (test code = 430) MONOCYTES RELATIVE PERCENT 9 % (BEAKER) (test code = 431) EOSINOPHILS RELATIVE PERCENT 0 % (BEAKER) (test code = 432) BASOPHILS RELATIVE PERCENT 0 % (BEAKER) (test code = 437) NEUTROPHILS ABSOLUTE COUNT 8.66 K/ L 1.78-5.38 H (BEAKER) (test code = 670) LYMPHOCYTES ABSOLUTE COUNT 1.79 K/ L 1.32-3.57 (BEAKER) (test code = 414) MONOCYTES ABSOLUTE COUNT (BEAKER) 0.99 K/ L 0.30-0.82 H (test code = 415) EOSINOPHILS ABSOLUTE COUNT 0.05 K/ L 0.04-0.54 (BEAKER) (test code = 416) BASOPHILS ABSOLUTE COUNT (BEAKER) 0.04 K/ L 0.01-0.08 (test code = 417) IMMATURE GRANULOCYTES-RELATIVE 0.30 % 0.00-1.00 PERCENT (BEAKER) (test code = 2801) Protein, random [id number] 04:17:23 Test Item Value Reference Range Interpretation Comments Protein, Urine (test 366 mg/dL 0-14 H code = 2888-6) ELINA (test code = ELINA) Rn Neonatal Icu ID - MARCOOperator ID - BETTY Lab Interpretation Abnormal (test code = 75163-4) [facility] [id number] 04:17:23 Test Item Value Reference Range Interpretation Comments Protein, Urine (test 366 mg/dL 0-14 H code = 2888-6) ELINA (test code = ELINA) Rn Neonatal Icu ID - MARCOOperator ID - BETTY Lab Interpretation Abnormal (test code = 09099-7) [facility] [id number] 04:17:23 Test Item Value Reference Range Interpretation Comments Protein, Urine (test 366 mg/dL 0-14 H code = 2888-6) ELINA (test code = ELINA) Rn Neonatal Icu ID - MARCOOperator ID - BETTY Lab Interpretation Abnormal (test code = 16392-5) [facility] [id number] 04:17:23 Test Item Value Reference Range Interpretation Comments Protein, Urine (test 366 mg/dL 0-14 H code = 2888-6) ELINA (test code = ELINA) Rn Neonatal Icu ID - MARCOOperator ID - BETTY Lab Interpretation Abnormal (test code = 81865-6) [facility] [id number] 04:17:23 Test Item Value Reference Range Interpretation Comments Protein, Urine (test 366 mg/dL 0-14 H code = 2888-6) ELINA (test code = ELINA) Rn Neonatal Icu ID - MARCOOperator ID - BETTY Lab Interpretation Abnormal (test code = 20277-3) [facility] [id number] 04:17:23 Test Item Value Reference Range Interpretation Comments Protein, Urine (test 366 mg/dL 0-14 H code = 2888-6) ELINA (test code = ELINA) Rn Neonatal Icu ID - MARCOOperator ID - BETTY Lab Interpretation Abnormal (test code = 91200-7) [facility] [id number] 04:17:23 Test Item Value Reference Range Interpretation Comments Protein, Urine (test 366 mg/dL 0-14 H code = 2888-6) ELINA (test code = ELINA) Rn Neonatal Icu ID - MARCOOperator ID - BETTY Lab Interpretation Abnormal (test code = 69988-9) [facility], [facility] [id number] 04:17:23 Test Item Value Reference Range Interpretation Comments Protein, Urine (test 366 mg/dL 0-14 H code = 2888-6) ELINA (test code = ELINA) Rn Neonatal Icu ID - Tatianaator ID - BETTY Lab Interpretation Abnormal (test code = 13344-9) [facility] [id number] 04:17:23 Test Item Value Reference Range Interpretation Comments Protein, Urine (test 366 mg/dL 0-14 H code = 2888-6) ELINA (test code = ELINA) Rn Neonatal Icu ID - DARIELAperator ID - BETTY Lab Interpretation Abnormal (test code = 32129-0) [facility] [id number] 04:17:23 Test Item Value Reference Range Interpretation Comments Protein, Urine (test 366 mg/dL 0-14 H code = 2888-6) ELINA (test code = ELINA) Rn Neonatal Icu ID - Tatianaator ID - BETTY Lab Interpretation Abnormal (test code = 03985-2) [facility]PROTEIN, RANDOM [id number] 04:17:23 Test Item Value Reference Range Interpretation Comments PROTEIN, URINE (BEAKER) (test code 366 mg/dL 0-14 H = 1569) Rn Neonatal Icu ID - Tatianaator ID - MARCOCreatinine, random [id number] 22:31:01 Test Item Value Reference Range Interpretation Comments Creatinine, Ur 67.7 mg/dL (test code = 2161-8) ELINA (test code = Reference Range: No ELINA) NormalsOperator ID - BS [facility]Urea Nitrogen, random [id number] 22:31:01 Test Item Value Reference Range Interpretation Comments Urea Nitrogen, Ur 203 mg/dL (test code = 3095-7) ELINA (test code = Reference Range: No ELINA) NormalsOperator ID - BS [facility] HospitalCreatinine, random [id number] 22:31:01 Test Item Value Reference Range Interpretation Comments Creatinine, Ur 67.7 mg/dL (test code = 2161-8) ELINA (test code = Reference Range: No ELINA) NormalsOperator ID - BS [facility] Nitrogen, random [id number] 22:31:01 Test Item Value Reference Range Interpretation Comments Urea Nitrogen, Ur 203 mg/dL (test code = 3095-7) ELINA (test code = Reference Range: No ELINA) NormalsOperator ID - BS [facility] HospitalCreatinine, random [id number] 22:31:01 Test Item Value Reference Range Interpretation Comments Creatinine, Ur 67.7 mg/dL (test code = 2161-8) ELINA (test code = Reference Range: No ELINA) NormalsOperator ID - [facility], random [id number] 22:31:01 Test Item Value Reference Range Interpretation Comments Urea Nitrogen, Ur 203 mg/dL (test code = 3095-7) ELINA (test code = Reference Range: No ELINA) NormalsOperator ID - [facility]Creat[facility], random [id number] 22:31:01 Test Item Value Reference Range Interpretation Comments Creatinine, Ur 67.7 mg/dL (test code = 2161-8) ELINA (test code = Reference Range: No ELINA) NormalsOperator ID - [facility], random [id number] 22:31:01 Test Item Value Reference Range Interpretation Comments Urea Nitrogen, Ur 203 mg/dL (test code = 3095-7) ELINA (test code = Reference Range: No ELINA) NormalsOperator ID - [facility]Creat[facility] random [id number] 22:31:01 Test Item Value Reference Range Interpretation Comments Creatinine, Ur 67.7 mg/dL (test code = 2161-8) ELINA (test code = Reference Range: No ELINA) NormalsOperator ID - [facility] District[facility] Nitrogen, random [id number] 22:31:01 Test Item Value Reference Range Interpretation Comments Urea Nitrogen, Ur 203 mg/dL (test code = 3095-7) ELINA (test code = Reference Range: No ELINA) NormalsOperator ID - [facility] DistrictCreatinine, random [id number] 22:31:01 Test Item Value Reference Range Interpretation Comments Creatinine, Ur 67.7 mg/dL (test code = 2161-8) ELINA (test code = Reference Range: No ELINA) NormalsOperator ID - [facility] DistrictUrea Nitrogen, random [id number] 22:31:01 Test Item Value Reference Range Interpretation Comments Urea Nitrogen, Ur 203 mg/dL (test code = 3095-7) ELINA (test code = Reference Range: No ELINA) NormalsOperator ID - BS [facility] [id number] 22:31:01 Test Item Value Reference Range Interpretation Comments Creatinine, Ur 67.7 mg/dL (test code = 2161-8) ELINA (test code = Reference Range: No ELINA) NormalsOperator ID - [facility] DistrictUrea Nitrogen, random [id number] 22:31:01 Test Item Value Reference Range Interpretation Comments Urea Nitrogen, Ur 203 mg/dL (test code = 3095-7) ELINA (test code = Reference Range: No ELINA) NormalsOperator ID - [facility] DistrictCreat[facility], random [id number] 22:31:01 Test Item Value Reference Range Interpretation Comments Creatinine, Ur 67.7 mg/dL (test code = 2161-8) ELINA (test code = Reference Range: No ELINA) NormalsOperator ID - [facility] DistrictUrea Nitrogen, random [id number] 22:31:01 Test Item Value Reference Range Interpretation Comments Urea Nitrogen, Ur 203 mg/dL (test code = 3095-7) EILNA (test code = Reference Range: No ELINA) NormalsOperator ID - [facility] DistrictCreat[facility], random [id number] 22:31:01 Test Item Value Reference Range Interpretation Comments Creatinine, Ur 67.7 mg/dL (test code = 2161-8) ELINA (test code = Reference Range: No ELINA) NormalsOperator ID - [facility] DistrictUrea Nitrogen, random [id number] 22:31:01 Test Item Value Reference Range Interpretation Comments Urea Nitrogen, Ur 203 mg/dL (test code = 3095-7) ELINA (test code = Reference Range: No ELINA) NormalsOperator ID - [facility] DistrictCreatinine, random [id number] 22:31:01 Test Item Value Reference Range Interpretation Comments Creatinine, Ur 67.7 mg/dL (test code = 2161-8) ELINA (test code = Reference Range: No ELINA) NormalsOperator ID - BS [facility], [facility] [id number] 22:31:01 Test Item Value Reference Range Interpretation Comments Urea Nitrogen, Ur 203 mg/dL (test code = 3095-7) ELINA (test code = Reference Range: No ELINA) NormalsOperator ID - BS [facility] HospitalCREATININE, RANDOM [id number] 22:31:01 Test Item Value Reference Range Interpretation Comments CREATININE URINE (BEAKER) (test 67.7 mg/dL code = 375) Reference Range: No NormalsOperator ID - BSUREA NITROGEN, RANDOM [id number] 22:31:01 Test Item Value Reference Range Interpretation Comments UREA NITROGEN URINE (BEAKER) (test 203 mg/dL code = 538) Reference Range: No NormalsOperator ID - BSChloride, random [id number] 22:31:00 Test Item Value Reference Range Interpretation Comments Chloride, Urine (test 77 meq/L 20-330 code = 36796-6) ELINA (test code = ELINA) Reference Range: No NormalsOperator ID - BS Lab Interpretation Normal (test code = 59942-1) [facility]Ch[facility], random [id number] 22:31:00 Test Item Value Reference Range Interpretation Comments Chloride, Urine (test 77 meq/L 20-330 code = 98361-3) ELINA (test code = ELINA) Reference Range: No NormalsOperator ID - BS Lab Interpretation Normal (test code = 67920-9) [facility]Chlor[facility], random [id number] 22:31:00 Test Item Value Reference Range Interpretation Comments Chloride, Urine (test 77 meq/L 20-330 code = 97931-5) ELINA (test code = ELINA) Reference Range: No NormalsOperator ID - BS Lab Interpretation Normal (test code = 69394-2) [facility]Ch[facility], random [id number] 22:31:00 Test Item Value Reference Range Interpretation Comments Chloride, Urine (test 77 meq/L 20-330 code = 86449-1) ELINA (test code = ELINA) Reference Range: No NormalsOperator ID - BS Lab Interpretation Normal (test code = 30622-8) [facility]Chlor[facility], random [id number] 22:31:00 Test Item Value Reference Range Interpretation Comments Chloride, Urine (test 77 meq/L 20-330 code = 42079-8) ELINA (test code = ELINA) Reference Range: No NormalsOperator ID - BS Lab Interpretation Normal (test code = 87020-1) [facility]Ch[facility], random [id number] 22:31:00 Test Item Value Reference Range Interpretation Comments Chloride, Urine (test 77 meq/L 20-330 code = 88886-1) ELINA (test code = ELINA) Reference Range: No NormalsOperator ID - BS Lab Interpretation Normal (test code = 09403-3) [facility], random [id number] 22:31:00 Test Item Value Reference Range Interpretation Comments Chloride, Urine (test 77 meq/L 20-330 code = 52378-1) ELINA (test code = ELINA) Reference Range: No NormalsOperator ID - BS Lab Interpretation Normal (test code = 23692-1) [facility]Chlorcent[facility], random [id number] 22:31:00 Test Item Value Reference Range Interpretation Comments Chloride, Urine (test 77 meq/L 20-330 code = 20229-1) ELINA (test code = ELINA) Reference Range: No NormalsOperator ID - BS Lab Interpretation Normal (test code = 46229-7) [facility], random [id number] 22:31:00 Test Item Value Reference Range Interpretation Comments Chloride, Urine (test 77 meq/L 20-330 code = 92206-5) ELINA (test code = ELINA) Reference Range: No NormalsOperator ID - BS Lab Interpretation Normal (test code = 54781-3) [facility] [id number] 22:31:00 Test Item Value Reference Range Interpretation Comments Chloride, Urine (test 77 meq/L 20-330 code = 21766-2) ELINA (test code = ELINA) Reference Range: No NormalsOperator ID - BS Lab Interpretation Normal (test code = 29538-6) [facility], [facility]ANDOM [id number] 22:31:00 Test Item Value Reference Range Interpretation Comments CHLORIDE URINE (BEAKER) (test code = 77 meq/L 20-330 682) Reference Range: No NormalsOperator ID - BSUrinalysis Microscopic [id number] 22:30:16 Test Item Value Reference Range Interpretation Comments RBC, UA (test code = 17 See_Comment [Autom ated message] The 42952-1) system which ge nerated this result transmit stuart reference range : /HPF. The reference range was not used to interpr et this result as mary l/abnormal. WBC, UA (test code = 4 See_Comment [Autom ated message] The 5821-4) system which ge nerated this result transmit stuart reference range : /HPF. The reference range was not used to interpr et this result as mary l/abnormal. [facility] HospitalURINALYSIS [id number] 22:30:16 Test Item Value Reference Range Interpretation Comments RBC UA (BEAKER) (test code = 519) 17 /HPF WBC UA (BEAKER) (test code = 520) 4 /HPF Urinalysis with Microscopic If [id number] 22:29:59 Test Item Value Reference Range Interpretation Comments Color, UA (test code = 5778-6) Light Yellow Clarity, UA (test code = 5767-9) Clear Specific [place], UA (test code 1.012 1.001-1.035 = 5811-5) pH, UA (test code = 5803-2) 6.0 5.0-8.0 Protein, UA (test code = >=300 mg/dL negative A 95082-2) Glucose, UA (test code = 365) 250 mg/dL Negative A Ketones, UA (test code = 2514-8) Negative negative Bilirubin, UA (test code = Negative Negative 34703-7) Blood, UA (test code = 46851-7) Moderate Negative A Nitrite, UA (test code = 5802-4) Negative Negative Leukocytes, UA (test code = Negative Negative 5799-2) Urobilinogen, UA (test code = 0.2 45351-8) Specimen Source (test code = 2795) Lab Interpretation (test code = Abnormal 08752-1) [facility]URINALYSIS WITH MICROSCOPIC IF [id number] 22:29:59 Test Item Value Reference Range Interpretation Comments COLOR (BEAKER) (test code = 470) Light Yellow CLARITY (BEAKER) (test code = Clear 469) SPECIFIC GRAVITY UA (BEAKER) 1.012 1.001-1.035 (test code = 468) PH UA (BEAKER) (test code = 467) 6.0 5.0-8.0 PROTEIN UA (BEAKER) (test code = >=300 mg/dL negative A 464) GLUCOSE UA (BEAKER) (test code = 250 mg/dL Negative A 365) KETONES UA (BEAKER) (test code = Negative negative 371) BILIRUBIN UA (BEAKER) (test code Negative Negative = 462) BLOOD UA (BEAKER) (test code = Moderate Negative A 461) NITRITE UA (BEAKER) (test code = Negative Negative 465) LEUKOCYTE ESTERASE UA (BEAKER) Negative Negative (test code = 466) UROBILINOGEN UA (BEAKER) (test 0.2 code = 463) SOURCE(BEAKER) (test code = 2795) POC-Glucose [id number] 21:36:42 Test Item Value Reference Range Interpretation Comments POC-Glucose Meter (test 174 mg/dL 70-110 H : TE STED AT [facility] code = 1538) [address] [facility], 770 30: Rn Neonatal Icu/Techni franklin ID = [id number] for BIBIANA VELOZ Lab Interpretation (test Abnormal code = 08827-2) [facility] HospitalPOCT[facility]GLUCOSE [id number] 21:36:42 Test Item Value Reference Range Interpretation Comments POC-GLUCOSE METER 174 mg/dL 70-110 H : [facility] (test code = [facility], 1538) [address]248: Rn Neonatal Icu/Techni franklin ID = [id number] for BIBIANA RAYGOZA URIC [id number] 20:39:27 Test Item Value Reference Range Interpretation Comments URIC ACID (BEAKER) (test code = 7.1 mg/dL 2.6-7.2 773) Rn Neonatal Icu ID - BSPOCT-GLUCOSE [id number] 16:52:29 Test Item Value Reference Range Interpretation Comments POC-GLUCOSE METER 212 mg/dL 70-110 H : TESTED A T [facility] 6720 (BEAKER) (test code = [facility], 1538) 52844: Rn Neonatal Icu/Techni franklin ID = [id number] for JAZMÍN HURLEY POCT-GLUCOSE [id number] 13:23:31 Test Item Value Reference Range Interpretation Comments POC-GLUCOSE METER 167 mg/dL 70-110 H : TESTED A T [facility] 6720 (BEAKER) (test code = [facility], 1538) 60848: Rn Neonatal Icu/Techni franklin ID = [id number] for JAZMÍN HURLEY [id number] 09:16:53 Test Item Value Reference Range Interpretation Comments MAGNESIUM (BEAKER) (test code = 1.5 mg/dL 1.6-2.6 L 627) Rn Neonatal Icu ID - AUTUMN LPOCT-GLUCOSE [id number] 08:35:38 Test Item Value Reference Range Interpretation Comments POC-GLUCOSE METER 88 mg/dL 70-110 : TESTED A T [facility] 6720 (BEAKER) (test code = [facility], 1538) 13372: Rn Neonatal Icu/Techni franklin ID = [id number] for JAZMÍN LIMA BASIC METABOLIC [id number] 06:27:21 Test Item Value Reference Range Interpretation Comments SODIUM (BEAKER) 141 meq/L 136-145 (test code = 381) POTASSIUM 3.0 meq/L 3.5-5.1 L (BEAKER) (test code = 379) CHLORIDE (BEAKER) 107 meq/L 98-107 (test code = 382) CO2 (BEAKER) 26 meq/L 22-29 (test code = 355) BLOOD UREA 10 mg/dL 7-21 NITROGEN (BEAKER) (test code = 354) CREATININE 1.66 mg/dL 0.57-1.25 H (BEAKER) (test code = 358) GLUCOSE RANDOM 84 mg/dL 70-105 (BEAKER) (test code = 652) CALCIUM (BEAKER) 7.5 mg/dL 8.4-10.2 L (test code = 697) EGFR (BEAKER) 47 Interpretatio n of eGFR (test code = mL/min/1.73 values Stage De scription 1092) sq m Result G1 Mary l or high >=90 G2 Mildly decreased 60-89 G3a Mildl y to moderately 45-5 9 G3b Moderately to s everely 30-44 G4 Severl y decreased 15-29 G5 Kidney failure <15Reported eGF R is based on the CKD-EPI 2020 equation that d oes not use a race coefficientEsti mated GFR is not as accur ate as Creatinine Mary dodge in predicting glom erular filtration rate . Estimated GFR is not appl icable for dialysis patien ts Rn Neonatal Icu ID - PIAYA LCBC W/PLT COUNT & AUTO [id number] 05:38:04 Test Item Value Reference Range Interpretation Comments WHITE BLOOD CELL COUNT (BEAKER) 11.7 K/ L 3.5-10.5 H (test code = 775) RED BLOOD CELL COUNT (BEAKER) 3.57 M/ L 4.63-6.08 L (test code = 761) HEMOGLOBIN (BEAKER) (test code = 7.6 GM/DL 13.7-17.5 L 410) HEMATOCRIT (BEAKER) (test code = 26.1 % 40.1-51.0 L 411) MEAN CORPUSCULAR VOLUME (BEAKER) 73 fL 79-92 L (test code = 753) MEAN CORPUSCULAR HEMOGLOBIN 21.3 pg 25.7-32.2 L (BEAKER) (test code = 751) MEAN CORPUSCULAR HEMOGLOBIN CONC 29.1 GM/DL 32.3-36.5 L (BEAKER) (test code = 752) RED CELL DISTRIBUTION WIDTH 16.7 % 11.6-14.4 H (BEAKER) (test code = 412) PLATELET COUNT (BEAKER) (test 364 K/CU MM 150-450 code = 756) MEAN PLATELET VOLUME (BEAKER) 9.7 fL 9.4-12.4 (test code = 754) NUCLEATED RED BLOOD CELLS 0 /100 WBC 0-0 (BEAKER) (test code = 413) NEUTROPHILS RELATIVE PERCENT 73 % (BEAKER) (test code = 429) LYMPHOCYTES RELATIVE PERCENT 19 % (BEAKER) (test code = 430) MONOCYTES RELATIVE PERCENT 7 % (BEAKER) (test code = 431) EOSINOPHILS RELATIVE PERCENT 0 % (BEAKER) (test code = 432) BASOPHILS RELATIVE PERCENT 0 % (BEAKER) (test code = 437) NEUTROPHILS ABSOLUTE COUNT 8.55 K/ L 1.78-5.38 H (BEAKER) (test code = 670) LYMPHOCYTES ABSOLUTE COUNT 2.26 K/ L 1.32-3.57 (BEAKER) (test code = 414) MONOCYTES ABSOLUTE COUNT (BEAKER) 0.78 K/ L 0.30-0.82 (test code = 415) EOSINOPHILS ABSOLUTE COUNT 0.04 K/ L 0.04-0.54 (BEAKER) (test code = 416) BASOPHILS ABSOLUTE COUNT (BEAKER) 0.04 K/ L 0.01-0.08 (test code = 417) IMMATURE GRANULOCYTES-RELATIVE 0.40 % 0.00-1.00 PERCENT (BEAKER) (test code = 2801) POC-Glucose [id number] 21:21:28 Test Item Value Reference Range Interpretation Comments POC-Glucose Meter (test 107 mg/dL 70-110 : TE STED AT [facility] code = 1538) [address] [facility], 770 30: Rn Neonatal Icu/Techni franklin ID = [id number] for HENDRICKS, NOHEM I Lab Interpretation (test Normal code = 32956-5) [facility] [id number] 21:21:28 Test Item Value Reference Range Interpretation Comments POC-GLUCOSE METER 107 mg/dL 70-110 : TESTED A T [facility] 6720 (BEAKER) (test code = [facility], 153) 59287: Rn Neonatal Icu/Techni franklin ID = [id number] for CA RBAJAL, JOCELYNE POCT-GLUCOSE [id number] 10:52:10 Test Item Value Reference Range Interpretation Comments POC-GLUCOSE METER 140 mg/dL 70-110 H : TESTED A T [facility] 6720 (BEAKER) (test code = [facility], 153) 16598: Rn Neonatal Icu/Techni franklin ID = [id number] for [place], Claribel POCT-GLUCOSE [id number] 08:47:06 Test Item Value Reference Range Interpretation Comments POC-GLUCOSE METER 97 mg/dL 70-110 : TESTED A T [facility] 6720 (BEAKER) (test code = [facility], 153) 24236: Rn Neonatal Icu/Techni franklin ID = [id number] for Cook , Claribel BASIC METABOLIC [id number] 06:44:10 Test Item Value Reference Range Interpretation Comments SODIUM (BEAKER) 140 meq/L 136-145 (test code = 381) POTASSIUM 3.1 meq/L 3.5-5.1 L (BEAKER) (test code = 379) CHLORIDE (BEAKER) 108 meq/L 98-107 H (test code = 382) CO2 (BEAKER) 25 meq/L 22-29 (test code = 355) BLOOD UREA 9 mg/dL 7-21 NITROGEN (BEAKER) (test code = 354) CREATININE 1.61 mg/dL 0.57-1.25 H (BEAKER) (test code = 358) GLUCOSE RANDOM 106 mg/dL 70-105 H (BEAKER) (test code = 652) CALCIUM (BEAKER) 8.0 mg/dL 8.4-10.2 L (test code = 697) EGFR (BEAKER) 48 Interpretatio n of eGFR (test code = mL/min/1.73 values Stage De scription 1092) sq m Result G1 Mary l or high >=90 G2 Mildly decreased 60-89 G3a Mildl y to moderately 45-5 9 G3b Moderately to s everely 30-44 G4 Severl y decreased 15-29 G5 Kidney failure <15Reported eGF R is based on the CKD-EPI 2020 equation that d oes not use a race coefficientEsti mated GFR is not as accur ate as Creatinine Mary dodge in predicting glom erular filtration rate . Estimated GFR is not appl icable for dialysis patien ts Rn Neonatal Icu ID - PIAYA LCBC W/PLT COUNT & AUTO [id number] 06:22:40 Test Item Value Reference Range Interpretation Comments WHITE BLOOD CELL COUNT (BEAKER) 11.0 K/ L 3.5-10.5 H (test code = 775) RED BLOOD CELL COUNT (BEAKER) 4.18 M/ L 4.63-6.08 L (test code = 761) HEMOGLOBIN (BEAKER) (test code = 8.9 GM/DL 13.7-17.5 L 410) HEMATOCRIT (BEAKER) (test code = 30.5 % 40.1-51.0 L 411) MEAN CORPUSCULAR VOLUME (BEAKER) 73 fL 79-92 L (test code = 753) MEAN CORPUSCULAR HEMOGLOBIN 21.3 pg 25.7-32.2 L (BEAKER) (test code = 751) MEAN CORPUSCULAR HEMOGLOBIN CONC 29.2 GM/DL 32.3-36.5 L (BEAKER) (test code = 752) RED CELL DISTRIBUTION WIDTH 17.0 % 11.6-14.4 H (BEAKER) (test code = 412) PLATELET COUNT (BEAKER) (test 422 K/CU MM 150-450 code = 756) MEAN PLATELET VOLUME (BEAKER) 9.2 fL 9.4-12.4 L (test code = 754) NUCLEATED RED BLOOD CELLS 0 /100 WBC 0-0 (BEAKER) (test code = 413) NEUTROPHILS RELATIVE PERCENT 75 % (BEAKER) (test code = 429) LYMPHOCYTES RELATIVE PERCENT 17 % (BEAKER) (test code = 430) MONOCYTES RELATIVE PERCENT 6 % (BEAKER) (test code = 431) EOSINOPHILS RELATIVE PERCENT 1 % (BEAKER) (test code = 432) BASOPHILS RELATIVE PERCENT 1 % (BEAKER) (test code = 437) NEUTROPHILS ABSOLUTE COUNT 8.25 K/ L 1.78-5.38 H (BEAKER) (test code = 670) LYMPHOCYTES ABSOLUTE COUNT 1.91 K/ L 1.32-3.57 (BEAKER) (test code = 414) MONOCYTES ABSOLUTE COUNT (BEAKER) 0.67 K/ L 0.30-0.82 (test code = 415) EOSINOPHILS ABSOLUTE COUNT 0.09 K/ L 0.04-0.54 (BEAKER) (test code = 416) BASOPHILS ABSOLUTE COUNT (BEAKER) 0.06 K/ L 0.01-0.08 (test code = 417) IMMATURE GRANULOCYTES-RELATIVE 0.30 % 0.00-1.00 PERCENT (BEAKER) (test code = 2801) 2D Echo W/O Doppler(No Doppler)2022-10-30 14:58:19Ejection FractionSLEH ECHO HEARTLAB [employer] ServicesESSON [facility]2D Echo W/O Doppler(No Doppler)2022-10-30 14:58:19Ejection FractionSLEH ECHO HEARTLAB MKCKESSON [facility]2D Echo W/O Doppler(No Doppler)2022-10-30 14:58:19 Ejection FractionSLEH ECHO HEARTLAB [employer] [facility]2D Echo W/O Doppler(No Doppler)2022-10-30 14:58:19Ejection FractionSLEH ECHO HEARTLAB MKCKESSON [facility]2D Echo W/O Doppler(No Doppler)2022-10-30 14:58:19Ejection FractionSLEH ECHO HEARTLAB [facility](No Doppler)2022-10-30 14:58:19 Ejection FractionSLEH ECHO HEARTLAB [facility]2D Echo W/O Doppler(No Doppler)2022-10-30 14:58:19Ejection FractionSLEH ECHO [facility](No Doppler)2022-10-30 14:58:19Ejection FractionSLEH ECHO HEARTLAB [facility]2D Echo W/O Doppler(No Doppler)2022-10-30 14:58:19 Ejection FractionSLEH ECHO HEARTLAB [facility]2D Echo W/O Doppler(No Doppler)2022-10-30 14:58:19Ejection FractionSLEH ECHO HEARTLAB [facility]2D Echo W/O Doppler(No Doppler)2022-10-30 14:58:19Ejection FractionSLE ECHO HEARTLAB [facility] [id number] 12:49:31 Test Item Value Reference Range Interpretation Comments POC-GLUCOSE METER 85 mg/dL 70-110 : TESTED Memo T [facility] 67[address] ([facility]) (test code = [place], 1538) [address]: Rn Neonatal Icu/Techni franklin ID = [id number] for EM HUGHES COMPREHENSIVE METABOLIC [id number] 05:40:10 Test Item Value Reference Range Interpretation Comments TOTAL PROTEIN 6.3 gm/dL 6.0-8.3 Specimen sligh tly (BEAKER) (test hemolyzed code = 770) ALBUMIN (AKER) 2.0 g/dL 3.5-5.0 L Specimen sl ightly (test code = 1145) hemolyzed ALKALINE 85 U/L 40-150 PHOSPHATASE ([facility]) (test code = 346) BILIRUBIN TOTAL 0.2 mg/dL 0.2-1.2 Specimen sli ghtly (BEAKER) (test hemolyzed code = 377) SODIUM (BEAKER) 140 meq/L 136-145 (test code = 381) POTASSIUM (BEAKER) 3.8 meq/L 3.5-5.1 Specimen slightly (test code = 379) hemolyzed CHLORIDE (BEAKER) 108 meq/L 98-107 H (test code = 382) CO2 (BEAKER) (test 24 meq/L 22-29 code = 355) BLOOD UREA 10 mg/dL 7-21 NITROGEN (BEAKER) (test code = 354) CREATININE 1.59 mg/dL 0.57-1.25 H Specimen slight ly (BEAKER) (test hemolyzed code = 358) GLUCOSE RANDOM 98 mg/dL 70-105 (BEAKER) (test code = 652) CALCIUM (BEAKER) 7.8 mg/dL 8.4-10.2 L (test code = 697) AST (SGOT) 131 U/L 5-34 H Specimen slight ly (BEAKER) (test hemolyzed code = 353) ALT (SGPT) 11 U/L 6-55 Specimen slight ly (BEAKER) (test hemolyzed code = 347) EGFR (BEAKER) 49 Interpretati on of eGFR (test code = 1092) mL/min/1.[address] age Description sq m Result G1 Mary l or high >=90 G2 Mildly decreased 60-89 G3a Mildl y to moderately 45-5 9 G3b Moderately to s everely 30-44 G4 Severl y decreased 15-29 G5 Kidney failure <15Reported eGF R is based on the CKD-EPI 2021 equation that d oes not use a race coefficientEsti mated GFR is not as accur ate as Creatinine Mary dodge in predicting glom erular filtration rate . Estimated GFR is not appl icable for dialysis patien ts Rn Neonatal Icu ID - PICAIT [id number] 05:35:07 Test Item Value Reference Range Interpretation Comments MAGNESIUM (BEAKER) 1.6 mg/dL 1.6-2.6 Specimen slightly (test code = 627) hemolyzed Rn Neonatal Icu ID - PICAIT LCBC W/PLT COUNT & AUTO [id number] 05:16:27 Test Item Value Reference Range Interpretation Comments WHITE BLOOD CELL COUNT (BEAKER) 11.9 K/ L 3.5-10.5 H (test code = 775) RED BLOOD CELL COUNT (BEAKER) 3.93 M/ L 4.63-6.08 L (test code = 761) HEMOGLOBIN (BEAKER) (test code = 8.5 GM/DL 13.7-17.5 L 410) HEMATOCRIT (BEAKER) (test code = 28.4 % 40.1-51.0 L 411) MEAN CORPUSCULAR VOLUME (BEAKER) 72 fL 79-92 L (test code = 753) MEAN CORPUSCULAR HEMOGLOBIN 21.6 pg 25.7-32.2 L (BEAKER) (test code = 751) MEAN CORPUSCULAR HEMOGLOBIN CONC 29.9 GM/DL 32.3-36.5 L (BEAKER) (test code = 752) RED CELL DISTRIBUTION WIDTH 16.5 % 11.6-14.4 H (BEAKER) (test code = 412) PLATELET COUNT (BEAKER) (test 433 K/CU MM 150-450 code = 756) MEAN PLATELET VOLUME (BEAKER) 9.4 fL 9.4-12.4 (test code = 754) NUCLEATED RED BLOOD CELLS 0 /100 WBC 0-0 (BEAKER) (test code = 413) NEUTROPHILS RELATIVE PERCENT 72 % (BEAKER) (test code = 429) LYMPHOCYTES RELATIVE PERCENT 21 % (BEAKER) (test code = 430) MONOCYTES RELATIVE PERCENT 6 % (BEAKER) (test code = 431) EOSINOPHILS RELATIVE PERCENT 1 % (BEAKER) (test code = 432) BASOPHILS RELATIVE PERCENT 0 % (BEAKER) (test code = 437) NEUTROPHILS ABSOLUTE COUNT 8.50 K/ L 1.78-5.38 H (BEAKER) (test code = 670) LYMPHOCYTES ABSOLUTE COUNT 2.43 K/ L 1.32-3.57 (BEAKER) (test code = 414) MONOCYTES ABSOLUTE COUNT (BEAKER) 0.71 K/ L 0.30-0.82 (test code = 415) EOSINOPHILS ABSOLUTE COUNT 0.12 K/ L 0.04-0.54 (BEAKER) (test code = 416) BASOPHILS ABSOLUTE COUNT (BEAKER) 0.05 K/ L 0.01-0.08 (test code = 417) IMMATURE GRANULOCYTES-RELATIVE 0.40 % 0.00-1.00 PERCENT (BEAKER) (test code = 2801) Prepare [id number] 23:54:00 Test Item Value Reference Range Interpretation Comments CROSSMATCH (test code = 2264) COMPATIBLE Unit ABO (test code = O Pos [id number]) UNIT NUMBER (test code = [id number] 934-0) Status (test code = 8190708) TX_TIMEINCHART Blood Bank Product (test code RED BLOOD CELLS = 2263) PRODUCT CODE (test code = C4154Q34 933-2) [facility] [id number] 23:54:00 Test Item Value Reference Range Interpretation Comments CROSSMATCH (test code = 2264) COMPATIBLE Unit ABO (test code = O Pos [id number]) UNIT NUMBER (test code = [id number] 934-0) Status (test code = 7353512) TX_TIMEINCHART Blood Bank Product (test code RED BLOOD CELLS = 2263) PRODUCT CODE (test code = [id number] 933-2) [facility] [id number] 23:54:00 Test Item Value Reference Range Interpretation Comments CROSSMATCH (test code = 2264) COMPATIBLE Unit ABO (test code = O Pos [id number]) UNIT NUMBER (test code = [id number] 934-0) Status (test code = 9684414) TX_TIMEINCHART Blood Bank Product (test code RED BLOOD CELLS = 2263) PRODUCT CODE (test code = [id number] 933-2) [facility] [id number] 23:54:00 Test Item Value Reference Range Interpretation Comments CROSSMATCH (test code = 2264) COMPATIBLE Unit ABO (test code = O Pos [id number]) UNIT NUMBER (test code = [id number] 934-0) Status (test code = 4614662) TX_TIMEINCHART Blood Bank Product (test code RED BLOOD CELLS = 2263) PRODUCT CODE (test code = [id number] 933-2) [facility] [id number] 23:54:00 Test Item Value Reference Range Interpretation Comments CROSSMATCH (test code = 2264) COMPATIBLE Unit ABO (test code = O Pos 3641455) UNIT NUMBER (test code = [id number] 934-0) Status (test code = 6750108) TX_TIMEINCHART Blood Bank Product (test code RED BLOOD CELLS = 2263) PRODUCT CODE (test code = A6656A61 933-2) [facility] [id number] 23:54:00 Test Item Value Reference Range Interpretation Comments CROSSMATCH (test code = 2264) COMPATIBLE Unit ABO (test code = O Pos 1016544) UNIT NUMBER (test code = [id number] 934-0) Status (test code = 2301418) TX_TIMEINCHART Blood Bank Product (test code RED BLOOD CELLS = 2263) PRODUCT CODE (test code = K7861C20 933-2) [facility] [id number] 23:54:00 Test Item Value Reference Range Interpretation Comments CROSSMATCH (test code = 2264) COMPATIBLE Unit ABO (test code = O Pos 0174682) UNIT NUMBER (test code = [id number] 934-0) Status (test code = 2419865) TX_TIMEINCHART Blood Bank Product (test code RED BLOOD CELLS = 2263) PRODUCT CODE (test code = N6398S38 933-2) [facility] [id number] 23:54:00 Test Item Value Reference Range Interpretation Comments CROSSMATCH (test code = 2264) COMPATIBLE Unit ABO (test code = O Pos 8341514) UNIT NUMBER (test code = [id number] 934-0) Status (test code = 1907504) TX_TIMEINCHART Blood Bank Product (test code RED BLOOD CELLS = 2263) PRODUCT CODE (test code = E5625Z72 933-2) [facility] [id number] 23:54:00 Test Item Value Reference Range Interpretation Comments CROSSMATCH (test code = 2264) COMPATIBLE Unit ABO (test code = O Pos 4975171) UNIT NUMBER (test code = [id number] 934-0) Status (test code = 2218491) TX_TIMEINCHART Blood Bank Product (test code RED BLOOD CELLS = 2263) PRODUCT CODE (test code = N4424V72 933-2) [facility] [id number] 23:54:00 Test Item Value Reference Range Interpretation Comments CROSSMATCH (test code = 2264) COMPATIBLE Unit ABO (test code = O Pos 1737842) UNIT NUMBER (test code = [id number] 934-0) Status (test code = 6138814) TX_TIMEINCHART Blood Bank Product (test code RED BLOOD CELLS = 2263) PRODUCT CODE (test code = V5397M92 933-2) [facility] [id number] 23:54:00 Test Item Value Reference Range Interpretation Comments CROSSMATCH (test code = 2264) COMPATIBLE Unit ABO (test code = O Pos 0369345) UNIT NUMBER (test code = [id number] 934-0) Status (test code = 7891889) TX_TIMEINCHART Blood Bank Product (test code RED BLOOD CELLS = 2263) PRODUCT CODE (test code = V4011Z40 933-2) [facility] [id number] 21:36:45 Test Item Value Reference Range Interpretation Comments POC-GLUCOSE METER 149 mg/dL 70-110 H : TESTED A T [facility] 6720 (BEAKER) (test code = KIKI [place], 1538) [address]: Rn Neonatal Icu/Techni franklin ID = [id number] for CA RBAJAL, JOCELYNE BASIC METABOLIC [id number] 05:18:33 Test Item Value Reference Range Interpretation Comments SODIUM (BEAKER) 140 meq/L 136-145 (test code = 381) POTASSIUM 2.8 meq/L 3.5-5.1 L (BEAKER) (test code = 379) CHLORIDE (BEAKER) 108 meq/L 98-107 H (test code = 382) CO2 (BEAKER) 25 meq/L 22-29 (test code = 355) BLOOD UREA 11 mg/dL 7-21 NITROGEN (BEAKER) (test code = 354) CREATININE 1.45 mg/dL 0.57-1.25 H (BEAKER) (test code = 358) GLUCOSE RANDOM 99 mg/dL 70-105 (BEAKER) (test code = 652) CALCIUM (BEAKER) 7.2 mg/dL 8.4-10.2 L (test code = 697) EGFR (BEAKER) 55 Interpretatio n of eGFR (test code = mL/min/1.73 values Stage De scription 1092) sq m Result G1 Mary l or high >=90 G2 Mildly decreased 60-89 G3a Mildl y to moderately 45-5 9 G3b Moderately to s everely 30-44 G4 Severl y decreased 15-29 G5 Kidney failure <15Reported eGF R is based on the CKD-EPI 2021 equation that d oes not use a race coefficientEsti mated GFR is not as accur ate as Creatinine Mary echo in predicting glom erular filtration rate . Estimated GFR is not appl icable for dialysis patien ts Rn Neonatal Icu ID - AUTUMN LHEPATIC FUNCTION [id number] 05:18:31 Test Item Value Reference Range Interpretation Comments TOTAL PROTEIN (BEAKER) (test code = 5.2 gm/dL 6.0-8.3 L 770) ALBUMIN (BEAKER) (test code = 1145) 1.7 g/dL 3.5-5.0 L BILIRUBIN TOTAL (BEAKER) (test code 0.2 mg/dL 0.2-1.2 = 377) BILIRUBIN DIRECT (BEAKER) (test 0.1 mg/dL 0.1-0.5 code = 706) ALKALINE PHOSPHATASE (BEAKER) (test 75 U/L 40-150 code = 346) AST (SGOT) (BEAKER) (test code = 15 U/L 5-34 353) ALT (SGPT) (BEAKER) (test code = 8 U/L 6-55 347) Rn Neonatal Icu ID - AUTUMN [id number] 05:13:11 Test Item Value Reference Range Interpretation Comments MAGNESIUM (BEAKER) (test code = 1.7 mg/dL 1.6-2.6 627) Rn Neonatal Icu ID - AUTUMN LCBC W/PLT COUNT & AUTO [id number] 04:38:17 Test Item Value Reference Range Interpretation Comments WHITE BLOOD CELL COUNT (BEAKER) 9.4 K/ L 3.5-10.5 (test code = 775) RED BLOOD CELL COUNT (BEAKER) 3.22 M/ L 4.63-6.08 L (test code = 761) HEMOGLOBIN (BEAKER) (test code = 7.0 GM/DL 13.7-17.5 L 410) HEMATOCRIT (BEAKER) (test code = 22.9 % 40.1-51.0 L 411) MEAN CORPUSCULAR VOLUME (BEAKER) 71 fL 79-92 L (test code = 753) MEAN CORPUSCULAR HEMOGLOBIN 21.7 pg 25.7-32.2 L (BEAKER) (test code = 751) MEAN CORPUSCULAR HEMOGLOBIN CONC 30.6 GM/DL 32.3-36.5 L (BEAKER) (test code = 752) RED CELL DISTRIBUTION WIDTH 16.3 % 11.6-14.4 H (BEAKER) (test code = 412) PLATELET COUNT (BEAKER) (test 324 K/CU MM 150-450 code = 756) MEAN PLATELET VOLUME (BEAKER) 9.2 fL 9.4-12.4 L (test code = 754) NUCLEATED RED BLOOD CELLS 0 /100 WBC 0-0 (BEAKER) (test code = 413) NEUTROPHILS RELATIVE PERCENT 70 % (BEAKER) (test code = 429) LYMPHOCYTES RELATIVE PERCENT 21 % (BEAKER) (test code = 430) MONOCYTES RELATIVE PERCENT 8 % (BEAKER) (test code = 431) EOSINOPHILS RELATIVE PERCENT 1 % (BEAKER) (test code = 432) BASOPHILS RELATIVE PERCENT 1 % (BEAKER) (test code = 437) NEUTROPHILS ABSOLUTE COUNT 6.49 K/ L 1.78-5.38 H (BEAKER) (test code = 670) LYMPHOCYTES ABSOLUTE COUNT 1.94 K/ L 1.32-3.57 (BEAKER) (test code = 414) MONOCYTES ABSOLUTE COUNT (BEAKER) 0.73 K/ L 0.30-0.82 (test code = 415) EOSINOPHILS ABSOLUTE COUNT 0.10 K/ L 0.04-0.54 (BEAKER) (test code = 416) BASOPHILS ABSOLUTE COUNT (BEAKER) 0.05 K/ L 0.01-0.08 (test code = 417) IMMATURE GRANULOCYTES-RELATIVE 0.40 % 0.00-1.00 PERCENT (BEAKER) (test code = 2801) HEMOGLOBIN AND [id number] 11:00:12 Test Item Value Reference Range Interpretation Comments HEMOGLOBIN (BEAKER) (test code = 8.0 GM/DL 13.7-17.5 L 410) HEMATOCRIT (BEAKER) (test code = 26.6 % 40.1-51.0 L 411) Rn Neonatal Icu ID - 6000BASIC METABOLIC [id number] 05:32:17 Test Item Value Reference Range Interpretation Comments SODIUM (BEAKER) 144 meq/L 136-145 (test code = 381) POTASSIUM 2.9 meq/L 3.5-5.1 L (BEAKER) (test code = 379) CHLORIDE (BEAKER) 110 meq/L 98-107 H (test code = 382) CO2 (BEAKER) 22 meq/L 22-29 (test code = 355) BLOOD UREA 12 mg/dL 7-21 NITROGEN (BEAKER) (test code = 354) CREATININE 1.46 mg/dL 0.57-1.25 H (BEAKER) (test code = 358) GLUCOSE RANDOM 75 mg/dL 70-105 (BEAKER) (test code = 652) CALCIUM (BEAKER) 7.5 mg/dL 8.4-10.2 L (test code = 697) EGFR (BEAKER) 54 Interpretatio n of eGFR (test code = mL/min/1.73 values Stage De scription 1092) sq m Result G1 Mary l or high >=90 G2 Mildly decreased 60-89 G3a Mildl y to moderately 45-5 9 G3b Moderately to s everely 30-44 G4 Severl y decreased 15-29 G5 Kidney failure <15Reported eGF R is based on the CKD-EPI 2020 equation that d oes not use a race coefficientEsti mated GFR is not as accur ate as Creatinine Mary echo in predicting glom erular filtration rate . Estimated GFR is not appl icable for dialysis patien ts Rn Neonatal Icu ID - BSHEPATIC FUNCTION [id number] 05:32:11 Test Item Value Reference Range Interpretation Comments TOTAL PROTEIN (BEAKER) (test code = 5.4 gm/dL 6.0-8.3 L 770) ALBUMIN (BEAKER) (test code = 1145) 1.8 g/dL 3.5-5.0 L BILIRUBIN TOTAL (BEAKER) (test code 0.2 mg/dL 0.2-1.2 = 377) BILIRUBIN DIRECT (BEAKER) (test 0.1 mg/dL 0.1-0.5 code = 706) ALKALINE PHOSPHATASE (BEAKER) (test 84 U/L 40-150 code = 346) AST (SGOT) (BEAKER) (test code = 14 U/L 5-34 353) ALT (SGPT) (BEAKER) (test code = 7 U/L 6-55 347) Rn Neonatal Icu ID - [id number] 05:30:23 Test Item Value Reference Range Interpretation Comments MAGNESIUM (BEAKER) (test code = 1.6 mg/dL 1.6-2.6 627) Rn Neonatal Icu ID - BSPROTHROMBIN TIME/[id number] 05:19:01 Test Item Value Reference Range Interpretation Comments PROTIME (BEAKER) (test code = 15.0 seconds 11.9-14.2 H 759) INR (BEAKER) (test code = 370) 1.25 <=5.90 RECOMMENDED COUMADIN/WARFARIN INR THERAPY RANGESSTANDARD DOSE: 2.0 - 3.0 Includes: PROPHYLAXIS for venous thrombosis, systemic embolization; TREATMENT for venous thrombosis and/or pulmonary embolus.HIGH RISK: Target INR is 2.5-3.5 for patients with mechanical heart valves.CBC W/PLT COUNT & AUTO [id number] 05:01:41 Test Item Value Reference Range Interpretation Comments WHITE BLOOD CELL COUNT (BEAKER) 7.8 K/ L 3.5-10.5 (test code = 775) RED BLOOD CELL COUNT (BEAKER) 3.06 M/ L 4.63-6.08 L (test code = 761) HEMOGLOBIN (BEAKER) (test code = 6.5 GM/DL 13.7-17.5 L 410) HEMATOCRIT (BEAKER) (test code = 21.6 % 40.1-51.0 L 411) MEAN CORPUSCULAR VOLUME (BEAKER) 71 fL 79-92 L (test code = 753) MEAN CORPUSCULAR HEMOGLOBIN 21.2 pg 25.7-32.2 L (BEAKER) (test code = 751) MEAN CORPUSCULAR HEMOGLOBIN CONC 30.1 GM/DL 32.3-36.5 L (BEAKER) (test code = 752) RED CELL DISTRIBUTION WIDTH 16.3 % 11.6-14.4 H (BEAKER) (test code = 412) PLATELET COUNT (BEAKER) (test 344 K/CU MM 150-450 code = 756) MEAN PLATELET VOLUME (BEAKER) 8.9 fL 9.4-12.4 L (test code = 754) NUCLEATED RED BLOOD CELLS 0 /100 WBC 0-0 (BEAKER) (test code = 413) NEUTROPHILS RELATIVE PERCENT 73 % (BEAKER) (test code = 429) LYMPHOCYTES RELATIVE PERCENT 18 % (BEAKER) (test code = 430) MONOCYTES RELATIVE PERCENT 8 % (BEAKER) (test code = 431) EOSINOPHILS RELATIVE PERCENT 1 % (BEAKER) (test code = 432) BASOPHILS RELATIVE PERCENT 1 % (BEAKER) (test code = 437) NEUTROPHILS ABSOLUTE COUNT 5.69 K/ L 1.78-5.38 H (BEAKER) (test code = 670) LYMPHOCYTES ABSOLUTE COUNT 1.39 K/ L 1.32-3.57 (BEAKER) (test code = 414) MONOCYTES ABSOLUTE COUNT (BEAKER) 0.58 K/ L 0.30-0.82 (test code = 415) EOSINOPHILS ABSOLUTE COUNT 0.05 K/ L 0.04-0.54 (BEAKER) (test code = 416) BASOPHILS ABSOLUTE COUNT (BEAKER) 0.04 K/ L 0.01-0.08 (test code = 417) IMMATURE GRANULOCYTES-RELATIVE 0.40 % 0.00-1.00 PERCENT (BEAKER) (test code = 2801) POCT-GLUCOSE [id number] 23:50:53 Test Item Value Reference Range Interpretation Comments POC-GLUCOSE METER 86 mg/dL 70-110 : TESTED A T [facility] 6720 (BEAKER) (test code = KIKI Ryan [facility], 1538) 12[address]: Rn Neonatal Icu/Techni franklin ID = [id number] for Miri Hughes SARS-CoV2/RT-PCR (Asymptomatic ONLY)2022-10-27 17:20:21 Test Item Value Reference Interpretation Comments Range SARS-COV2/RT-PCR Negative Negative The SARS-Co V-2 (test code = target nucleic 36090-6) acids are not detected in thi s specimen. Negat chel results do not preclude SARS-C oV-2 infection and should not be u sed as the sole bas is for patient management decisions. Nega tive results must be combined with clinical observations, patient history , and epidemiolog ical information. A false negative result may occu r if a specimen is improperly collected, transported or handled. This S ARS CoV-2 test is a rapid, real-justin e RT-PCR test intended for th e qualitative detection of nucleic acid fr om SARS-CoV-2 in a nasopharyngeal swab specimen collec stuart from individual s suspected of COVID-19 by the ir healthcare provider. ELINA (test code = This test has been ELINA) authorized by FDA under an EUA for use by authorized laboratories. This test is only authorized for the duration of the declaration that circumstances exist justifying the authorization of emergency use of in vitro diagnostic tests for detection and/or diagnosis of COVID-19 under Section 564(b)(1) of the Federal Food, Drug and Cosmetic Act, 21 U.S.C. 360bbb-3(b)(1), unless the authorization is terminated or revoked sooner. Fact Sheet for Healthcare Providers: https://www.[employer]/Documents/Xp ert%20Xpress%20SAR S%20CoV-2/Fact%20S heets/302-3802%20S ARS-COV-2%20HEALTH CARE%20PROVIDERS%2 0FACT%20SHEET.pdf Fact Sheet for Healthcare Patients: https://www.[employer]/Documents/Xp ert%20Xpress%20SAR S%20CoV-2/Fact%20S heets/302-3801%20S ARS-COV-2%20PATIEN T%20FACT%20SHEET.p df Lab Interpretation Normal (test code = 94818-6) [facility]27 17:20:21 Test Item Value Reference Interpretation Comments Range SARS-COV2/RT-PCR Negative Negative The SARS-Co V-2 (test code = target nucleic 19732-4) acids are not detected in thi s specimen. Negat chel results do not preclude SARS-C oV-2 infection and should not be u sed as the sole bas is for patient management decisions. Nega tive results must be combined with clinical observations, patient history , and epidemiolog ical information. A false negative result may occu r if a specimen is improperly collected, transported or handled. This S ARS CoV-2 test is a rapid, real-justin e RT-PCR test intended for th e qualitative detection of nucleic acid fr om SARS-CoV-2 in a nasopharyngeal swab specimen collec stuart from individual s suspected of COVID-19 by the ir healthcare provider. ELINA (test code = This test has been ELINA) authorized by FDA under an EUA for use by authorized laboratories. This test is only authorized for the duration of the declaration that circumstances exist justifying the authorization of emergency use of in vitro diagnostic tests for detection and/or diagnosis of COVID-19 under Section 564(b)(1) of the Federal Food, Drug and Cosmetic Act, 21 U.S.C. 360bbb-3(b)(1), unless the authorization is terminated or revoked sooner. Fact Sheet for Healthcare Providers: https://www.[employer]/Documents/Xp ert%20Xpress%20SAR S%20CoV-2/Fact%20S heets/302-3802%20S ARS-COV-2%20HEALTH CARE%20PROVIDERS%2 0FACT%20SHEET.pdf Fact Sheet for Healthcare Patients: https://www[employer]/Documents/Xp ert%20Xpress%20SAR S%20CoV-2/Fact%20S heets/302-3801%20S ARS-COV-2%20PATIEN T%20FACT%20SHEET.p df Lab Interpretation Normal (test code = 95191-9) [facility])2022-10-27 17:20:21 Test Item Value Reference Range Interpretation Comments SARS-COV2/RT-PCR Negative Negative The SARS-Co V-2 target (test code = nucleic acids a re not 0861413) detected in thi s specimen. Negative result s do not preclude SARS-C oV-2 infection and s hould not be used as the char[place] e basis for patient managem ent decisions. Nega tive results must be combine d with clinical observ ations, patient history , and epidemiological information. A false negativ e result may occur if a spec imen is improperly karin ected, transported or handled. This SARS CoV-2 test is a rapid, real-time RT-PC R test intended for th e qualitative detection of nu cleic acid from SARS-CoV-2 in a nasopharyngeal swab specimen collected from individuals suspected of CO VID-19 by their healthcar e provider. This test has been authorized by FDA under an EUA for use by authorized laboratories. This test is only authorized for the duration of the declaration that circumstances exist justifying the authorization of emergency use of in vitro diagnostic tests for detection and/or diagnosis of COVID-19 under Section 564(b)(1) of the Federal Food, Drug and Cosmetic Act, 21 U.S.C. 360bbb-3(b)(1), unless the authorization is terminated or revoked sooner. Fact Sheet for Healthcare Providers: https://www.[employer]/Documents/Xpert%20Xpress%20SARS%20CoV-2/Fact%20Sheets/302-3802%59ROJH-JQA-8%20 HEALTHCARE%20PROVIDERS%20FACT%20SHEET.pdf Fact Sheet for Healthcare Patients: https://www.[employer]/Documents/Xpert%20Xp ress%20SARS%20CoV-2/Fact%20Sheets/302-3801%77KBFJ-CZU-5%20PATIENT%20FACT%20SHEET .pdfRAD, CHEST, 2 [id number] 15:57:00Reason for exam:->[facility] 1960 Sex: MFINAL REPORT PA and Lateral views of the chest dated 10/27/2022 Clinical information: HYPERTENSION Comment: Heart is normal in size. Pulmonary vasculature is unremarkable. There is trace bilateral pleural effusion with bibasilar subsegmental atelectasis. The rest of the lungs are clear. IMPRESSION: Trace bilateral pleural effusion. Signed: Roger Calero MDReport Verified Date/Time: 10/27/2022 15:57:57 HIGH SENSITIVITY TROPONIN [id number] 15:29:54 Test Item Value Reference Range Interpretation Comments HIGH SENSITIVITY TROPONIN I (test 8 pg/ml <=53 code = 4945110) The High-Sensitivity Troponin I assay is performed on Siemens Crystal Clear Vision IM Analyzer. Results of this assay should always be interpreted in conjunction with the patient's medical history, clinical presentation, and other findings.B-TYPE NATRIURETIC FACTOR (BNP)2022-10-27 15:19:33 Test Item Value Reference Range Interpretation Comments B-TYPE NATRIURETIC PEPTIDE (BEAKER) 675 pg/mL 0-100 H (test code = 700) BASIC METABOLIC [id number] 14:18:10 Test Item Value Reference Range Interpretation Comments SODIUM (BEAKER) 144 meq/L 136-145 (test code = 381) POTASSIUM 3.0 meq/L 3.5-5.1 L (BEAKER) (test code = 379) CHLORIDE (BEAKER) 111 meq/L 98-107 H (test code = 382) CO2 (BEAKER) 24 meq/L 22-29 (test code = 355) BLOOD UREA 13 mg/dL 7-21 NITROGEN (BEAKER) (test code = 354) CREATININE 1.49 mg/dL 0.57-1.25 H (BEAKER) (test code = 358) GLUCOSE RANDOM 106 mg/dL 70-105 H (BEAKER) (test code = 652) CALCIUM (BEAKER) 7.5 mg/dL 8.4-10.2 L (test code = 697) EGFR (BEAKER) 53 Interpretatio n of eGFR (test code = mL/min/1.73 values Stage De scription 1092) sq m Result G1 Mary l or high >=90 G2 Mildly decreased 60-89 G3a Mildl y to moderately 45-5 9 G3b Moderately to s everely 30-44 G4 Severl y decreased 15-29 G5 Kidney failure <15Reported eGF R is based on the CKD-EPI 2020 equation that d oes not use a race coefficientEsti mated GFR is not as accur ate as Creatinine Mary echo in predicting glom erular filtration rate . Estimated GFR is not appl icable for dialysis patien ts CBC (HEMOGRAM ONLY)2022-10-27 14:17:40 Test Item Value Reference Range Interpretation Comments WHITE BLOOD CELL COUNT (BEAKER) 9.1 K/ L 3.5-10.5 (test code = 775) RED BLOOD CELL COUNT (BEAKER) 3.35 M/ L 4.63-6.08 L (test code = 761) HEMOGLOBIN (BEAKER) (test code = 7.1 GM/DL 13.7-17.5 L 410) HEMATOCRIT (BEAKER) (test code = 24.1 % 40.1-51.0 L 411) MEAN CORPUSCULAR VOLUME (BEAKER) 72 fL 79-92 L (test code = 753) MEAN CORPUSCULAR HEMOGLOBIN 21.2 pg 25.7-32.2 L (BEAKER) (test code = 751) MEAN CORPUSCULAR HEMOGLOBIN CONC 29.5 GM/DL 32.3-36.5 L (BEAKER) (test code = 752) RED CELL DISTRIBUTION WIDTH 15.9 % 11.6-14.4 H (BEAKER) (test code = 412) PLATELET COUNT (BEAKER) (test 382 K/CU MM 150-450 code = 756) MEAN PLATELET VOLUME (BEAKER) 9.1 fL 9.4-12.4 L (test code = 754) AFB culture + smear (non-sputum)2022-07-29 15:58:06 Test Item Value Reference Range Interpretation Comments Result (test code = No acid-fast bacilli 6463-4) isolated in 42 days AFB Smear (test code = No acid fast bacilli 54628-5) [facility]2022-07-29 15:58:06 Test Item Value Reference Range Interpretation Comments Result (test code = No acid-fast bacilli 6463-4) isolated in 42 days AFB Smear (test code = No acid fast bacilli 90546-9) [facility] (non-sputum)2022-07-29 15:58:06 Test Item Value Reference Range Interpretation Comments Result (test code = No acid-fast bacilli 6463-4) isolated in 42 days AFB Smear (test code = No acid fast bacilli 90703-0) [facility] (non-sputum)2022-07-29 15:58:06 Test Item Value Reference Range Interpretation Comments Result (test code = No acid-fast bacilli 6463-4) isolated in 42 days AFB Smear (test code = No acid fast bacilli 40867-9) [facility] (non-sputum)2022-07-29 15:58:06 Test Item Value Reference Range Interpretation Comments Result (test code = No acid-fast bacilli 6463-4) isolated in 42 days AFB Smear (test code = No acid fast bacilli 25634-1) [facility] (non-sputum)2022-07-29 15:58:06 Test Item Value Reference Range Interpretation Comments Result (test code = No acid-fast bacilli 6463-4) isolated in 42 days AFB Smear (test code = No acid fast bacilli 75727-6) [facility] (non-sputum)2022-07-29 15:58:06 Test Item Value Reference Range Interpretation Comments Result (test code = No acid-fast bacilli 6463-4) isolated in 42 days AFB Smear (test code = No acid fast bacilli 05985-3) [facility] (non-sputum)2022-07-29 15:58:06 Test Item Value Reference Range Interpretation Comments Result (test code = No acid-fast bacilli 6463-4) isolated in 42 days AFB Smear (test code = No acid fast bacilli 00997-2) [facility] (non-sputum)2022-07-29 15:58:06 Test Item Value Reference Range Interpretation Comments Result (test code = No acid-fast bacilli 6463-4) isolated in 42 days AFB Smear (test code = No acid fast bacilli 64260-7) [facility]non-sputum)2022-07-29 15:58:06 Test Item Value Reference Range Interpretation Comments Result (test code = No acid-fast bacilli 6463-4) isolated in 42 days AFB Smear (test code = No acid fast bacilli 01692-1) [facility]2022-07-29 15:58:06 Test Item Value Reference Range Interpretation Comments Result (test code = No acid-fast bacilli 6463-4) isolated in 42 days AFB Smear (test code = No acid fast bacilli 79256-3) [facility] (non-sputum)2022-07-29 15:58:06 Test Item Value Reference Range Interpretation Comments Result (test code = No acid-fast bacilli 6463-4) isolated in 42 days AFB Smear (test code = No acid fast bacilli 19574-1) [facility]non-sputum)2022-07-29 15:58:06 Test Item Value Reference Range Interpretation Comments Result (test code = No acid-fast bacilli 6463-4) isolated in 42 days AFB Smear (test code = No acid fast bacilli 29918-2) [facility] (non-sputum)2022-07-29 15:58:06 Test Item Value Reference Range Interpretation Comments Result (test code = No acid-fast bacilli 6463-4) isolated in 42 days AFB Smear (test code = No acid fast bacilli 91061-5) [facility]-sputum)2022-07-29 15:58:06 Test Item Value Reference Range Interpretation Comments Result (test code = No acid-fast bacilli 6463-4) isolated in 42 days AFB Smear (test code = No acid fast bacilli 12337-3) [facility] (non-sputum)2022-07-29 15:58:06 Test Item Value Reference Range Interpretation Comments Result (test code = No acid-fast bacilli 6463-4) isolated in 42 days AFB Smear (test code = No acid fast bacilli 66558-6) [facility] (non-sputum)2022-07-29 15:58:06 Test Item Value Reference Range Interpretation Comments Result (test code = No acid-fast bacilli 6463-4) isolated in 42 days AFB Smear (test code = No acid fast bacilli 93796-0) [facility]non-sputum)2022-07-29 15:58:06 Test Item Value Reference Range Interpretation Comments Result (test code = No acid-fast bacilli 6463-4) isolated in 42 days AFB Smear (test code = No acid fast bacilli 50729-7) [facility]2022-07-29 15:58:06 Test Item Value Reference Range Interpretation Comments Result (test code = No acid-fast bacilli 6463-4) isolated in 42 days AFB Smear (test code = No acid fast bacilli 27827-8) [facility]SPUTUM[facility]2022-07-29 15:58:06 Test Item Value Reference Range Interpretation Comments CULTURE (BEAKER) (test No acid-fast bacilli code = 1095) isolated in 42 days AFB SMEAR (BEAKER) No acid fast bacilli (test code = 994) seen Fungus culture + [id number] 21:25:57 Test Item Value Reference Range Interpretation Comments Result (test code = No fungus isolated in 6463-4) 28 days Fungus Smear (test No fungi seen code = 1406) [facility] [id number] 21:25:57 Test Item Value Reference Range Interpretation Comments Result (test code = No fungus isolated in 6463-4) 28 days Fungus Smear (test No fungi seen code = 1406) [facility] [id number] 21:25:57 Test Item Value Reference Range Interpretation Comments Result (test code = No fungus isolated in 6463-4) 28 days Fungus Smear (test No fungi seen code = 1406) [facility] [id number] 21:25:57 Test Item Value Reference Range Interpretation Comments Result (test code = No fungus isolated in 6463-4) 28 days Fungus Smear (test No fungi seen code = 1406) [facility] [id number] 21:25:57 Test Item Value Reference Range Interpretation Comments Result (test code = No fungus isolated in 6463-4) 28 days Fungus Smear (test No fungi seen code = 1406) [facility] [id number] 21:25:57 Test Item Value Reference Range Interpretation Comments Result (test code = No fungus isolated in 6463-4) 28 days Fungus Smear (test No fungi seen code = 1406) [facility] + [id number] 21:25:57 Test Item Value Reference Range Interpretation Comments Result (test code = No fungus isolated in 6463-4) 28 days Fungus Smear (test No fungi seen code = 1406) [facility] [id number] 21:25:57 Test Item Value Reference Range Interpretation Comments Result (test code = No fungus isolated in 63) 28 days Fungus Smear (test No fungi seen code = 1406) [facility] culture + [id number] 21:25:57 Test Item Value Reference Range Interpretation Comments Result (test code = No fungus isolated in 63) 28 days Fungus Smear (test No fungi seen code = 1406) [facility] [id number] 21:25:57 Test Item Value Reference Range Interpretation Comments Result (test code = No fungus isolated in 63) 28 days Fungus Smear (test No fungi seen code = 1406) [facility] + [id number] 21:25:57 Test Item Value Reference Range Interpretation Comments Result (test code = No fungus isolated in 63) 28 days Fungus Smear (test No fungi seen code = 1406) [facility] [id number] 21:25:57 Test Item Value Reference Range Interpretation Comments Result (test code = No fungus isolated in 6463-4) 28 days Fungus Smear (test No fungi seen code = 1406) [facility] [id number] 21:25:57 Test Item Value Reference Range Interpretation Comments Result (test code = No fungus isolated in 6463-4) 28 days Fungus Smear (test No fungi seen code = 1406) [facility] + [id number] 21:25:57 Test Item Value Reference Range Interpretation Comments Result (test code = No fungus isolated in 63-4) 28 days Fungus Smear (test No fungi seen code = 1406) [facility] [id number] 21:25:57 Test Item Value Reference Range Interpretation Comments Result (test code = No fungus isolated in 6463-4) 28 days Fungus Smear (test No fungi seen code = 1406) [facility] + [id number] 21:25:57 Test Item Value Reference Range Interpretation Comments Result (test code = No fungus isolated in 6463-4) 28 days Fungus Smear (test No fungi seen code = 1406) [facility] + [id number] 21:25:57 Test Item Value Reference Range Interpretation Comments Result (test code = No fungus isolated in 6463-4) 28 days Fungus Smear (test No fungi seen code = 1406) [facility] + [id number] 21:25:57 Test Item Value Reference Range Interpretation Comments Result (test code = No fungus isolated in 6463-4) 28 days Fungus Smear (test No fungi seen code = 1406) [facility] + [id number] 21:25:57 Test Item Value Reference Range Interpretation Comments Result (test code = No fungus isolated in 6463-4) 28 days Fungus Smear (test No fungi seen code = 1406) [facility] [id number] 21:25:57 Test Item Value Reference Range Interpretation Comments CULTURE (BEAKER) (test No fungus isolated in code = 1095) 28 days FUNGUS SMEAR (BEAKER) No fungi seen (test code = 1406) POC-Glucose [id number] 13:45:10 Test Item Value Reference Range Interpretation Comments POC-Glucose Meter (test 124 mg/dL 70-110 H : TE STED AT [facility] code = 1538) [address] [facility], [facility] 30: Rn Neonatal Icu/Techni franklin ID = [id number] for CALIX HERMINIO Lab Interpretation (test Abnormal code = 33871-1) [facility] [id number] 13:45:10 Test Item Value Reference Range Interpretation Comments POC-Glucose Meter (test 124 mg/dL 70-110 H : TE STED AT [facility] code = 1538) [address] [place] [address], 770 30: Rn Neonatal Icu/Techni franklin ID = [id number] for CALIX, HERMINIO Lab Interpretation (test Abnormal code = 58897-1) [facility]-Glucose [id number] 13:45:10 Test Item Value Reference Range Interpretation Comments POC-Glucose Meter (test 124 mg/dL 70-110 H : TE STED AT [facility] code = 1538) [address] [place] [address], [facility] 30: Rn Neonatal Icu/Techni franklin ID = [id number] for CALIX, HERMINIO Lab Interpretation (test Abnormal code = 74602-4) [facility]-Glucose [id number] 13:45:10 Test Item Value Reference Range Interpretation Comments POC-Glucose Meter (test 124 mg/dL 70-110 H : TE STED AT [facility] code = 1538) [address] [place] [address], [facility] 30: Rn Neonatal Icu/Techni franklin ID = [id number] for CALIX, HERMINIO Lab Interpretation (test Abnormal code = 15533-5) [facility]-Glucose [id number] 13:45:10 Test Item Value Reference Range Interpretation Comments POC-Glucose Meter (test 124 mg/dL 70-110 H : TE STED AT [facility] code = 1538) [address] [place] [address], [facility] 30: Rn Neonatal Icu/Techni franklin ID = [id number] for CALIX, HERMINIO Lab Interpretation (test Abnormal code = 16384-4) [facility]-Glucose [id number] 13:45:10 Test Item Value Reference Range Interpretation Comments POC-Glucose Meter (test 124 mg/dL 70-110 H : TE STED AT [facility] code = 1538) [address] [place] [address], [facility] 30: Rn Neonatal Icu/Techni franklin ID = [id number] for CALIX, HERMINIO Lab Interpretation (test Abnormal code = 73493-3) [facility]-Glucose [id number] 13:45:10 Test Item Value Reference Range Interpretation Comments POC-Glucose Meter (test 124 mg/dL 70-110 H : TE STED AT [facility] code = 1538) [address] [place] [address], [facility] 30: Rn Neonatal Icu/Techni franklin ID = [id number] for CALIX, HERMINIO Lab Interpretation (test Abnormal code = 55491-6) [facility] [id number] 13:45:10 Test Item Value Reference Range Interpretation Comments POC-Glucose Meter (test 124 mg/dL 70-110 H : TE STED AT [facility] code = 1538) [address] [facility], 770 30: Rn Neonatal Icu/Techni franklin ID = [id number] for CALIX, HERMINIO Lab Interpretation (test Abnormal code = 47124-5) [facility] [id number] 13:45:10 Test Item Value Reference Range Interpretation Comments POC-GLUCOSE METER 124 mg/dL 70-110 H : TESTED A T [facility] 6720 (BEAKER) (test code = [facility], 153) 09740: Rn Neonatal Icu/Techni franklin ID = [id number] for RA MOS, HERMINIO POCT-GLUCOSE [id number] 13:36:51 Test Item Value Reference Range Interpretation Comments POC-GLUCOSE METER 98 mg/dL 70-110 : TESTED A T [facility] 6720 (BEAKER) (test code = [facility], 153) 03065: Rn Neonatal Icu/Techni franklin ID = [id number] for SHARON S, HERMINIO POCT-GLUCOSE [id number] 13:12:51 Test Item Value Reference Range Interpretation Comments POC-GLUCOSE METER 113 mg/dL 70-110 H : TESTED A T [facility] 6720 (BEAKER) (test code = [facility], 153) 40984: Rn Neonatal Icu/Techni franklin ID = [id number] for Se rrano, Keshia POCT-GLUCOSE [id number] 13:01:19 Test Item Value Reference Range Interpretation Comments POC-GLUCOSE METER 134 mg/dL 70-110 H : TESTED A T [facility] 6720 (BEAKER) (test code = [facility], 153) 59839: Rn Neonatal Icu/Techni franklin ID = [id number] for Wi lliams, Areiona POCT-GLUCOSE [id number] 12:48:53 Test Item Value Reference Range Interpretation Comments POC-GLUCOSE METER 140 mg/dL 70-110 H : TESTED A T [facility] 6720 (BEAKER) (test code = [facility], [facility]) 53687: Rn Neonatal Icu/Techni franklin ID = [id number] for Sammie lliams, Areiona POCT-GLUCOSE [id number] 12:35:50 Test Item Value Reference Range Interpretation Comments POC-GLUCOSE METER 91 mg/dL 70-110 : TESTED A T [facility] 6720 (BEAKER) (test code = [facility], [facility]) 77963: Rn Neonatal Icu/Techni franklin ID = [id number] for Will iams, Areiona POCT-GLUCOSE [id number] 12:12:44 Test Item Value Reference Range Interpretation Comments POC-GLUCOSE METER 128 mg/dL 70-110 H : TESTED A T [facility] 6720 (BEAKER) (test code = [facility], [facility]) 03723: Rn Neonatal Icu/Techni franklin ID = [id number] for Se kerr, Keshia POCT-GLUCOSE [id number] 12:00:43 Test Item Value Reference Range Interpretation Comments POC-GLUCOSE METER 105 mg/dL 70-110 : TESTED A T [facility] 6720 (BEAKER) (test code = [facility], [facility]) 58169: Rn Neonatal Icu/Techni franklin ID = [id number] for Da vis, Deleon POCT-GLUCOSE [id number] 11:49:54 Test Item Value Reference Range Interpretation Comments POC-GLUCOSE METER 156 mg/dL 70-110 H : TESTED A T [facility] 6720 (BEAKER) (test code = [facility], [facility]) 29685: Rn Neonatal Icu/Techni franklin ID = [id number] for Da vis, Deleon POCT-GLUCOSE [id number] 11:40:11 Test Item Value Reference Range Interpretation Comments POC-GLUCOSE METER 105 mg/dL 70-110 : TESTED A T [facility] 6720 (BEAKER) (test code = [facility], [facility]) 86261: Rn Neonatal Icu/Techni franklin ID = [id number] for Da vis, Deleon POCT-GLUCOSE [id number] 11:16:35 Test Item Value Reference Range Interpretation Comments POC-GLUCOSE METER 146 mg/dL 70-110 H : TESTED A T [facility] 6720 (BEAKER) (test code = [facility], [facility]) 07108: Rn Neonatal Icu/Techni franklin ID = [id number] for DA WALLY, FLAQUITO POCT-GLUCOSE [id number] 11:02:52 Test Item Value Reference Range Interpretation Comments POC-GLUCOSE METER 90 mg/dL 70-110 : TESTED A T [facility] 6720 (BEAKER) (test code = [facility], 153) 63308: Rn Neonatal Icu/Techni franklin ID = [id number] for ALLYN S, MAURISIO POCT-GLUCOSE [id number] 10:51:48 Test Item Value Reference Range Interpretation Comments POC-GLUCOSE METER 228 mg/dL 70-110 H : TESTED A T [facility] 6720 (BEAKER) (test code = [facility], 1538) 82735: Rn Neonatal Icu/Techni franklin ID = [id number] for AURELIA KAREN, MAURISIO POCT-GLUCOSE [id number] 10:42:41 Test Item Value Reference Range Interpretation Comments POC-GLUCOSE METER 127 mg/dL 70-110 H : TESTED A T [facility] 6720 (BEAKER) (test code = [facility], [facility]8) 15201: Rn Neonatal Icu/Techni franklin ID = [id number] for AURELIA JONES, MAURISIO POCT-GLUCOSE [id number] 10:14:04 Test Item Value Reference Range Interpretation Comments POC-GLUCOSE METER 158 mg/dL 70-110 H : TESTED A T [facility] 6720 (BEAKER) (test code = [facility], 1538) 78056: Rn Neonatal Icu/Techni franklin ID = [id number] for DA WALLY, FLAQUITO POCT-GLUCOSE [id number] 10:02:24 Test Item Value Reference Range Interpretation Comments POC-GLUCOSE METER 98 mg/dL 70-110 : TESTED A T [facility] 6720 (BEAKER) (test code = [facility], 1538) 09995: Rn Neonatal Icu/Techni franklin ID = [id number] for iTm Millanya POCT-GLUCOSE [id number] 09:51:47 Test Item Value Reference Range Interpretation Comments POC-GLUCOSE METER 113 mg/dL 70-110 H : TESTED A T [facility] 6720 (BEAKER) (test code = [facility], 1538) 59155: Rn Neonatal Icu/Techni franklin ID = [id number] for VONDA HANEY POCT-GLUCOSE [id number] 09:37:09 Test Item Value Reference Range Interpretation Comments POC-GLUCOSE METER 96 mg/dL 70-110 : TESTED A T [facility] 6720 (BEAKER) (test code = [facility], 1538) 94474: Rn Neonatal Icu/Techni franklin ID = [id number] for Frandy s, Deleon POCT-GLUCOSE [id number] 09:14:40 Test Item Value Reference Range Interpretation Comments POC-GLUCOSE METER 125 mg/dL 70-110 H : TESTED A T [facility] 6720 (BEAKER) (test code = [facility], [facility]8) 19095: Rn Neonatal Icu/Techni franklin ID = [id number] for BUTCH ESTEVESA POCT-GLUCOSE [id number] 09:02:20 Test Item Value Reference Range Interpretation Comments POC-GLUCOSE METER 97 mg/dL 70-110 : TESTED A T [facility] 6720 [facility] (test code = [facility], [facility]8) 87126: Rn Neonatal Icu/Techni franklin ID = [id number] for Frandy s, Deleon POCT-GLUCOSE [id number] 09:01:48 Test Item Value Reference Range Interpretation Comments POC-GLUCOSE METER 274 mg/dL 70-110 H : TESTED A T [facility] 6720 (BEAKER) (test code = [facility], [facility]8) 20706: Rn Neonatal Icu/Techni franklin ID = [id number] for Wilner Cruzta POCT-GLUCOSE [id number] 08:45:21 Test Item Value Reference Range Interpretation Comments POC-GLUCOSE METER 108 mg/dL 70-110 : TESTED A T [facility] 6720 (BEAKER) (test code = [facility], [facility]8) 11596: Rn Neonatal Icu/Techni franklin ID = [id number] for Da vis, Deleon POCT-GLUCOSE [id number] 08:32:39 Test Item Value Reference Range Interpretation Comments POC-GLUCOSE METER 138 mg/dL 70-110 H : TESTED A T [facility] 6720 (BEAKER) (test code = [facility], [facility]8) 19366: Rn Neonatal Icu/Techni franklin ID = [id number] for Da vis, Deleon POCT-GLUCOSE [id number] 21:55:24 Test Item Value Reference Range Interpretation Comments POC-GLUCOSE METER 151 mg/dL 70-110 H : TESTED A T [facility] 6720 (BEAKER) (test code = [facility], 1538) 71448: Rn Neonatal Icu/Techni franklin ID = [id number] for VONDA WILL POCT-GLUCOSE [id number] 21:46:03 Test Item Value Reference Range Interpretation Comments POC-GLUCOSE METER 153 mg/dL 70-110 H : TESTED A T [facility] 6720 (BEAKER) (test code = [facility], 1538) 58151: Rn Neonatal Icu/Techni franklin ID = [id number] for VONDA WILL [id number] 19:57:46 Test Item Value Reference Range Interpretation Comments POTASSIUM (BEAKER) (test code = 3.1 meq/L 3.5-5.1 L 379) Rn Neonatal Icu ID - JOSE CRUZ DPOCT-GLUCOSE [id number] 16:16:18 Test Item Value Reference Range Interpretation Comments POC-GLUCOSE METER 202 mg/dL 70-110 H : TESTED A T [facility] 6720 (BEAKER) (test code = [facility], 1538) 33027: Rn Neonatal Icu/Techni franklin ID = [id number] for Da vis, Deleon POCT-GLUCOSE [id number] 12:27:36 Test Item Value Reference Range Interpretation Comments POC-GLUCOSE METER 148 mg/dL 70-110 H : TESTED A T [facility] 6720 (BEAKER) (test code = [facility], 1538) 35154: Rn Neonatal Icu/Techni franklin ID = [id number] for Da vis, Deleon POCT-GLUCOSE [id number] 07:51:37 Test Item Value Reference Range Interpretation Comments POC-GLUCOSE METER 107 mg/dL 70-110 : TESTED A T [facility] 6720 (BEAKER) (test code = [facility], 1538) 64725: Rn Neonatal Icu/Techni franklin ID = [id number] for Da vis, Deleon COMPREHENSIVE METABOLIC [id number] 06:39:54 Test Item Value Reference Range Interpretation Comments TOTAL PROTEIN 5.2 gm/dL 6.0-8.3 L (BEAKER) (test code = 770) ALBUMIN (BEAKER) 2.2 g/dL 3.5-5.0 L (test code = 1145) ALKALINE 71 U/L 40-150 PHOSPHATASE (BEAKER) (test code = 346) BILIRUBIN TOTAL 0.2 mg/dL 0.2-1.2 (BEAKER) (test code = 377) SODIUM (BEAKER) 143 meq/L 136-145 (test code = 381) POTASSIUM (BEAKER) 2.8 meq/L 3.5-5.1 L (test code = 379) CHLORIDE (BEAKER) 117 meq/L 98-107 H (test code = 382) CO2 (BEAKER) (test 19 meq/L 22-29 L code = 355) BLOOD UREA 22 mg/dL 7-21 H NITROGEN (BEAKER) (test code = 354) CREATININE 1.17 mg/dL 0.57-1.25 (BEAKER) (test code = 358) GLUCOSE RANDOM 95 mg/dL 70-105 (BEAKER) (test code = 652) CALCIUM (BEAKER) 7.6 mg/dL 8.4-10.2 L (test code = 697) AST (SGOT) 18 U/L 5-34 (BEAKER) (test code = 353) ALT (SGPT) 10 U/L 6-55 (BEAKER) (test code = 347) EGFR (BEAKER) 71 Interpretatio n of eGFR (test code = 1092) mL/min/1.[address] age Description sq m Result G1 Mary l or high >=90 G2 Mildly decreased 60-89 G3a Mildl y to moderately 45-5 9 G3b Moderately to s everely 30-44 G4 Severl y decreased 15-29 G5 Kidney failure <15Reported eGF R is based on the CKD-EPI 2021 equation that d oes not use a race coefficientEsti mated GFR is not as accur ate as Creatinine Mary echo in predicting glom erular filtration rate . Estimated GFR is not appl icable for dialysis patien ts Rn Neonatal Icu ID - AUTUMN [id number] 05:56:11 Test Item Value Reference Range Interpretation Comments PHOSPHORUS (BEAKER) (test code = 3.7 mg/dL 2.3-4.7 604) Rn Neonatal Icu ID - AUTUMN [id number] 05:56:10 Test Item Value Reference Range Interpretation Comments MAGNESIUM (BEAKER) (test code = 1.8 mg/dL 1.6-2.6 627) Rn Neonatal Icu ID - PIAYA LCBC W/PLT COUNT & AUTO [id number] 05:27:45 Test Item Value Reference Range Interpretation Comments WHITE BLOOD CELL COUNT (BEAKER) 9.1 K/ L 3.5-10.5 (test code = 775) RED BLOOD CELL COUNT (BEAKER) 3.31 M/ L 4.63-6.08 L (test code = 761) HEMOGLOBIN (BEAKER) (test code = 7.3 GM/DL 13.7-17.5 L 410) HEMATOCRIT (BEAKER) (test code = 25.0 % 40.1-51.0 L 411) MEAN CORPUSCULAR VOLUME (BEAKER) 76 fL 79-92 L (test code = 753) MEAN CORPUSCULAR HEMOGLOBIN 22.1 pg 25.7-32.2 L (BEAKER) (test code = 751) MEAN CORPUSCULAR HEMOGLOBIN CONC 29.2 GM/DL 32.3-36.5 L (BEAKER) (test code = 752) RED CELL DISTRIBUTION WIDTH 15.9 % 11.6-14.4 H (BEAKER) (test code = 412) PLATELET COUNT (BEAKER) (test 271 K/CU MM 150-450 code = 756) MEAN PLATELET VOLUME (BEAKER) 9.8 fL 9.4-12.4 (test code = 754) NUCLEATED RED BLOOD CELLS 0 /100 WBC 0-0 (BEAKER) (test code = 413) NEUTROPHILS RELATIVE PERCENT 70 % (BEAKER) (test code = 429) LYMPHOCYTES RELATIVE PERCENT 19 % (BEAKER) (test code = 430) MONOCYTES RELATIVE PERCENT 7 % (BEAKER) (test code = 431) EOSINOPHILS RELATIVE PERCENT 3 % (BEAKER) (test code = 432) BASOPHILS RELATIVE PERCENT 1 % (BEAKER) (test code = 437) NEUTROPHILS ABSOLUTE COUNT 6.37 K/ L 1.78-5.38 H (BEAKER) (test code = 670) LYMPHOCYTES ABSOLUTE COUNT 1.76 K/ L 1.32-3.57 (BEAKER) (test code = 414) MONOCYTES ABSOLUTE COUNT (BEAKER) 0.60 K/ L 0.30-0.82 (test code = 415) EOSINOPHILS ABSOLUTE COUNT 0.28 K/ L 0.04-0.54 (BEAKER) (test code = 416) BASOPHILS ABSOLUTE COUNT (BEAKER) 0.05 K/ L 0.01-0.08 (test code = 417) IMMATURE GRANULOCYTES-RELATIVE 0.40 % 0.00-1.00 PERCENT (BEAKER) (test code = 2801) POCT-GLUCOSE [id number] 21:24:21 Test Item Value Reference Range Interpretation Comments POC-GLUCOSE METER 188 mg/dL 70-110 H : TESTED A T [facility] 6720 (X-1) (test code = [facility], 1538) 03400: Rn Neonatal Icu/Techni franklin ID = [id number] for Aric Gutiérrez [id number] 18:00:01 Test Item Value Reference Range Interpretation Comments POTASSIUM (BEAKER) (test code = 3.7 meq/L 3.5-5.1 379) Rn Neonatal Icu ID - EMMANUELPOCT-GLUCOSE [id number] 11:51:51 Test Item Value Reference Range Interpretation Comments POC-GLUCOSE METER 239 mg/dL 70-110 H : TESTED A T [facility] 6720 (X-1) (test code = [facility], 1538) 10804: Rn Neonatal Icu/Techni franklin ID = [id number] for Maura Cruz HEMOGLOBIN [id number] 10:40:53 Test Item Value Reference Range Interpretation Comments HEMOGLOBIN A1C 8.1 % See_Comment H [Automated m essage] ELECTROPHORESIS ([facility]) The system which (test code = 3811) generated this result transmitted ref erence range: <=5.6%. The reference range was not used to int erpret this result as normal/abnormal . "The A1c is measured using a NGSP-certified method. HbA1c value equal to or greater than 6.5% as thediagnosis cutoff for diabetes. An HbA1c value of 5.7- 6.4% indicates increased risk for diabetes (prediabetes)."Rn Neonatal Icu ID - ADMPOCT- GLUCOSE [id number] 08:02:37 Test Item Value Reference Range Interpretation Comments POC-GLUCOSE METER 141 mg/dL 70-110 H : TESTED A T [facility] 6720 (X-1) (test code = [facility], 1538) 21321: Rn Neonatal Icu/Techni franklin ID = [id number] for Maura Cruz COMPREHENSIVE METABOLIC [id number] 05:42:21 Test Item Value Reference Range Interpretation Comments TOTAL PROTEIN 5.2 gm/dL 6.0-8.3 L (BEAKER) (test code = 770) ALBUMIN (BEAKER) 2.2 g/dL 3.5-5.0 L (test code = 1145) ALKALINE 75 U/L 40-150 PHOSPHATASE (BEAKER) (test code = 346) BILIRUBIN TOTAL 0.2 mg/dL 0.2-1.2 (BEAKER) (test code = 377) SODIUM (BEAKER) 144 meq/L 136-145 (test code = 381) POTASSIUM (BEAKER) 3.0 meq/L 3.5-5.1 L (test code = 379) CHLORIDE (BEAKER) 117 meq/L 98-107 H (test code = 382) CO2 (BEAKER) (test 21 meq/L 22-29 L code = 355) BLOOD UREA 21 mg/dL 7-21 NITROGEN (BEAKER) (test code = 354) CREATININE 1.15 mg/dL 0.57-1.25 (BEAKER) (test code = 358) GLUCOSE RANDOM 124 mg/dL 70-105 H (BEAKER) (test code = 652) CALCIUM (BEAKER) 7.7 mg/dL 8.4-10.2 L (test code = 697) AST (SGOT) 19 U/L 5-34 (BEAKER) (test code = 353) ALT (SGPT) 11 U/L 6-55 (BEAKER) (test code = 347) EGFR (BEAKER) 73 Interpretatio n of eGFR (test code = 1092) mL/min/1.[address] age Description sq m Result G1 Mary l or high >=90 G2 Mildly decreased 60-89 G3a Mildl y to moderately 45-5 9 G3b Moderately to s everely 30-44 G4 Severl y decreased 15-29 G5 Kidney failure <15Reported eGF R is based on the CKD-EPI 2021 equation that d oes not use a race coefficientEsti mated GFR is not as accur ate as Creatinine Mary dodge in predicting glom erular filtration rate . Estimated GFR is not appl icable for dialysis patien ts Rn Neonatal Icu ID - MANASA [id number] 05:35:01 Test Item Value Reference Range Interpretation Comments PHOSPHORUS (BEAKER) (test code = 3.5 mg/dL 2.3-4.7 604) Rn Neonatal Icu ID - MANASA [id number] 05:35:00 Test Item Value Reference Range Interpretation Comments MAGNESIUM (BEAKER) (test code = 2.1 mg/dL 1.6-2.6 627) Rn Neonatal Icu ID - MANASA [facility] W/PLT COUNT & AUTO [id number] 05:07:03 Test Item Value Reference Range Interpretation Comments WHITE BLOOD CELL COUNT (BEAKER) 8.8 K/ L 3.5-10.5 (test code = 775) RED BLOOD CELL COUNT (BEAKER) 3.42 M/ L 4.63-6.08 L (test code = 761) HEMOGLOBIN (BEAKER) (test code = 7.5 GM/DL 13.7-17.5 L 410) HEMATOCRIT (BEAKER) (test code = 25.5 % 40.1-51.0 L 411) MEAN CORPUSCULAR VOLUME (BEAKER) 75 fL 79-92 L (test code = 753) MEAN CORPUSCULAR HEMOGLOBIN 21.9 pg 25.7-32.2 L (BEAKER) (test code = 751) MEAN CORPUSCULAR HEMOGLOBIN CONC 29.4 GM/DL 32.3-36.5 L (BEAKER) (test code = 752) RED CELL DISTRIBUTION WIDTH 15.7 % 11.6-14.4 H (BEAKER) (test code = 412) PLATELET COUNT (BEAKER) (test 264 K/CU MM 150-450 code = 756) MEAN PLATELET VOLUME (BEAKER) 9.7 fL 9.4-12.4 (test code = 754) NUCLEATED RED BLOOD CELLS 0 /100 WBC 0-0 (BEAKER) (test code = 413) NEUTROPHILS RELATIVE PERCENT 69 % (BEAKER) (test code = 429) LYMPHOCYTES RELATIVE PERCENT 22 % (BEAKER) (test code = 430) MONOCYTES RELATIVE PERCENT 6 % (BEAKER) (test code = 431) EOSINOPHILS RELATIVE PERCENT 3 % (BEAKER) (test code = 432) BASOPHILS RELATIVE PERCENT 1 % (BEAKER) (test code = 437) NEUTROPHILS ABSOLUTE COUNT 6.06 K/ L 1.78-5.38 H (BEAKER) (test code = 670) LYMPHOCYTES ABSOLUTE COUNT 1.89 K/ L 1.32-3.57 (BEAKER) (test code = 414) MONOCYTES ABSOLUTE COUNT (BEAKER) 0.50 K/ L 0.30-0.82 (test code = 415) EOSINOPHILS ABSOLUTE COUNT 0.26 K/ L 0.04-0.54 (BEAKER) (test code = 416) BASOPHILS ABSOLUTE COUNT (BEAKER) 0.04 K/ L 0.01-0.08 (test code = 417) IMMATURE GRANULOCYTES-RELATIVE 0.30 % 0.00-1.00 PERCENT (BEAKER) (test code = 2801) POCT-GLUCOSE [id number] 00:44:24 Test Item Value Reference Range Interpretation Comments POC-GLUCOSE METER 124 mg/dL 70-110 H : TESTED A T [facility] 6720 (BEAKER) (test code = [facility], 1538) [id number]: Rn Neonatal Icu/Techni franklin ID = [id number] for VONDA WILL POCT-GLUCOSE [id number] 21:32:12 Test Item Value Reference Range Interpretation Comments POC-GLUCOSE METER 130 mg/dL 70-110 H : TESTED A T [facility] 6720 (BEAKER) (test code = [facility], 1538) [id number]: Rn Neonatal Icu/Techni franklin ID = [id number] for VONDA WILL [id number] 19:45:50 Test Item Value Reference Range Interpretation Comments MAGNESIUM (BEAKER) (test code = 1.7 mg/dL 1.6-2.6 627) Rn Neonatal Icu ID - [id number] 19:45:50 Test Item Value Reference Range Interpretation Comments POTASSIUM (BEAKER) (test code = 3.0 meq/L 3.5-5.1 L 379) Rn Neonatal Icu ID - BSPOCT-GLUCOSE [id number] 16:20:21 Test Item Value Reference Range Interpretation Comments POC-GLUCOSE METER 220 mg/dL 70-110 H : TESTED A T [facility] 6720 (BEAKER) (test code = [facility], 1538) 32747: Rn Neonatal Icu/Techni franklin ID = [id number] for Da vis, [facility] Tissue [id number] 14:09:45 Test Item Value Reference Range Interpretation Comments Case Report (test code Surgical Pathology = 104) Report Case: [id number] Authorizing Provider: Bret Brooke MD Collected: 06/12/2022 09:05 AM Ordering Location: [address] Received: 06/14/2022 08:03 AM Service Pathologist: Tam Galvan MD Specimen: Soft Tissue, Other, ASAF-COLONIC NODULE DIAGNOSIS (test code = [id number] 3220) FuZzEwMzNcZnRuYmpcdWMx IHtccnRmMVxlcGljOTYwMl lwwxMrBPHfkRUzD5Nlteea NAkvUD9hHO5mdDjitXYnsS AoZACrBiBmt7noi941kOHn n6qcVDLDuuovlKn1qAlyY9 1ow7Q2PdlaA18xvANnTYI7 JQJnMQLryWPpBQRlWGL5JV PjtRPfJ2mhTHHuYB3sktrc CHviIKosKBUqpIZ4RORvuO QeW7GwUXSbTTmdYOAhcmv9 KkMzDi6lqIEeyBiaQEvuLP MdOIMkEUfmFFQgWeHzV25R VCBUSVNTVUUsIFBFUklDT0 lYMyXGR3SAGXQyOZRDR8kD SD8ZBLHbqxFyOYPbBcTWZV 5RR0RUO9nOBQeUILzcSQnZ QZ4TLPZFCJMHUPMVAaoMTK VMA64vXD9SMUBADlkvUx0N TPkyW0LOVPJNF0IPHI1AGE UfkfCnXRZnOf2uRKCRZKwV DL8SZWRWEKOIOGLxrm38HE S6XkSog4K6EJC4HRLwLWIu g6mjLMIndLCyNlGkUcOmLr AfHfhgjYMcFTPmYoFkv3qh q558oJBcb2eqYONfCnS8sU HhJREajKPiG411GCMlYFlv r8igk8HiWIElzBFeq7R1ZD KBgnqfxSc5aBnkL09pc3N2 QcecS9arBWXxKYMdS6WaUP 2vMUVgSuj5FYV4IOA4HYZz JUFpB9MwKL6tKJInbZKkLU u5u3citLrzZKJlKUZ1e2eo USyeulVzYX1mnx4qmVv4q5 xjczEgRGVmYXVsdCBQYXJh W7BfqRvoVf6vbDb7lHbnHt tsWRG4Rne5YX4svv47tvp7 mQjrHREfewbfIkI4EXhfNY PohvfcDUp1OKawBKZarOL1 HUBdfMWtX5PtTLZxOU3ljk l9NSW7GOgeWGWyJdK9BOMh aSEjKYXbpXelRRogo384SO U9NzHxUL1eV8Jey1M9qC7u aXRcZGVmdGFiNzIwXGZvcm 5loDPuEKixk0AxLWW2joX7 wFFbeDAzNIRsSfC2QXfsOA 8lts49UYMpVKQ2oj8pkQZz tZpcdpWceTLaIVtgJ7FkTL Dak878VDLxS0YpPEUij3T4 kmCsRkLtUUXhkVQ9waI9YD IbXD2solblc0qzYPdkXQxf BBLrepP7xqY9JUYfdEMmS8 IqrR1fRMDiTQ2klihrn9ap XUZ1HJaiKMOpYAJ7BvSnJE Sfh4Erfwd1OjKmi9VwgSIp XNnaB94ou385EICylxMiR6 xwbGFpblxwbGFpblxmMFxm cjW8KZZkVAjxgguwQUPjHZ lqR2yhMfDoORZopVclDZou y4CzNVJhESQcAqYzyGMaGD TdVqc4QNZazJFvZUFzHrFj G1pivvjzFnPQANQqb9leY1 zpiDTUdDOwV2XbQEkgupDx HKzsYQozNVTsBGI9TZ14UL zwJUJais57 CPT Code(s) (test code e8rkwJOhJIAdoRD0XlByEB = 3357) Oge1mhq5OnwSJdnQYoPWnk zLZlakUsba96iGW5gV33LA 8dCGRcGjI8MFVnucJ1Tmv2 JZWdETKvcQLxV357t7lsn1 kfyxEjjET2gLwlLWPmrbnb XoD7GYpcCQLuqmkkDQo2JQ iqZZQpqGT5JBVrhWMwW0Tm FXPqEW0xqwv7HCN3BWmiGU HnTkJ7VDItxLHmJMVudKes QYxxv287EZK8QhBjYDZrlb SmpLsggR8jVtVnJNE3WUZp NCwgODgzMTFccGFyfQ== CLINICAL HISTORY (test x8gkqJSyKNMnmBF3AkTlWG code = 3356) Vgv1ipy2AhmQQbsLKcUOkg iGEivhDswm89xSI7gW72ZA 0cAAIhJgT9BIIapuO4Coj9 BROsXSOygJTtP507a9svd6 bawrXqvLO3dLqiFMBmllpo KeD9URkiJPZfeaktDDh0RN xmMSIzyFJ4UOVhxVDiW2Os CXInIE5ajhx0KJE8HOpwIL CrXpM8QEJbvQTfTHSczNpa DXzmd593PQT8NzJmQMYufy TrqYrgzS0aBvPaODX2YbK9 Fj9fDT1iBZutEM65kFJkME XmsYvbsG9yjNNfRbOzqsxQ AexxUK2yEL9gROcwvYIhmX 5zdWxpbiksIHdobyBwcmVz MW39NTWfvF8vdJgwIBClyB sikm4TwURPgHazflE9hHJy TW1tSmTwxJjqGOdegAFjju QmgtZqPNcorHHeg8yokc5v N8CIYOF4G3raf8VyMNYejE 8zdHJyy7MrzSF3W6Uht70o LsNseAIkGOVjXARsvPP9iL 4oLSUcRROsGVX2iZ6wHKVs cn0= SPECIMEN SOURCE (test u1iblKDcOZFgbUW4YzCoFL code = 3377) Xrn4wwl1HidKCsoRHdZTlg wYGudoPaku42qSJ4iM78IB 8pQMZuVhQ1CLTscqJ7Lvi9 ZYGuPTKeqLDnI055z9jmy3 ucofPmnDO3kZpyXVDkyfxq BcH2IMzsXLTrilepYKf5JW fqGWRbsTJ1HHNakQVgO6Sg ZDYaRS9mylw9HDF9TRatCW KmAxQ3BVEzgOQoACRecXly OLgty046FCV9SlCqIFYpeg HztSbozD0hLmVnNXLCACGe F07rtWHma36sbQZ1iQAduB VccGFyfQ== GROSS DESCRIPTION (test i5gfnTOdNVYedARAQUIxU2 code = [id number]) lgawQnGWOxoLMbT5Wljivw SVolQL5tNR7kfBomwSMrqH FuKS1WIZUcZbHiARQfiQFw kqYuWcWmZOYsqMBtmAI7AM WzVH0aesahHBeiYQohRUVk thW9BXXqgCIaR4LtXFPyRF 5diozyORO1XBwrvW5symYD PpstVx6hfPPsjPkyOhHlDk NoYXJzZXQwXGZuaWwgQXJp FIf1tT3IYbvbVTU6HXTFXb cpVFEuXH2Vv9zdHYCdjHRw TLZ0UEbdiNKlKNDdKNViBX q0FXJvGDgdjVGcFL7lhPsy EacioIuwo7GnbKUdFXmdUS QzXIOnRDijTMYiHA4TEwGi GGZiXRRrKCbyLYw1OGz2EB 9WUyAiICAzMDIzOTgwNSIg IZz8RSdhGG7YUJJoIcCgDg GuRYA9GCG2HyWsBCLdWhQz XGYgQXJpYWwgXFxmbCBcXG 6vtDsqeUDiwvXWGpHKw8I5 TGRbp6W0RIokU3JlVAFlZC BhciANClxlcGljTmVzdERv YzEgDQpcbHRycGFyXGxpbj BccmluMCANClxsdHJjaFxm szXeQKKvN0ModbZqZQCgYS EeAJexClWgLGDti5l3gAM3 cUKocTH2vWPmrCwuYlKmQR 2gkZSoNH0gSYsgHPwcvwAe z7ZrWO80tAZtdiXmngFeBi Yddhgaw5nsCnEhc8L9fSFw CHobKDOiByE3SVGfqSBpPu SiO96uqHVxMAr8bEKgJYIv ciUax49oy5RvhQIhUZ78TU Z0LCNlhjUooT1ihqzeFVAn LjQgeCAxLjMgeCAxIGNtIG Xggc6jIOdwbWtexr6edzN9 IHRvIHRhbiBjYWxjaWZpZW Qywh4iwRjfTUFgETYhsJRi vPQun9ZkuYDhHSGfXAJhmn GulaDmrOJsqPDxjWR2HDUq tW2lDZZoWHCjILYnpBhee6 luZyBkZWNhbGNpZmljYXRp d87nERBkjaYCUwixZGGlNE yCeGRug8JqXTizMAArXKVD PFSfXCDZGKpDM2COACHyUH vejTwcdT1pOJXcP17jl2ZR w9BbGRNcOUrik2gvvRaty3 VjdGVuZFxwYXJccGFyZFxz nN1yChZxm8lpoVz9YDcduq X5QQVvhu6UBkdgvW9qJsFu o4jqiSp5ZEOVMfqzurJ5u7 khbEqyy7PjlASuUT2JOs8= MICROSCOPIC DESCRIPTION w0bozUNfIHFezDM6BpAaDM (test code = 3371) Wys7goh6VhwLGsbEPwETud yLFyjnKkas67rKB2bA33EN 9rSDOzDiA9VHIsqbF6Qpx6 UXTtUYNdtSKuT693p3zyy6 bouzEynVC6mIrmXGUedusv HcZ1IGwdFERyahvaHNx3DO aiKDNnbLY5TFNpzXUeG1Dz RHWfPL4kjxx0HCC2OGszSV LtArD1UONpkCEwXATkdEky MAcjp664ILU8JoKeNJPukn WhhVdixT3rNrXrFJKICJTa z8CtGIRhIPFeca9= Gross assessment was [facility] performed at ([facility], = 2777) Department of Pathology, [address] [place] [address], Technical component was [facility] performed at ([facility], = 2778) Department of Pathology, [address] [place], [place] [id number], Professional component [facility] was performed at ([facility], code = 2779) Department of Pathology, [address] [place] [address], [facility] [id number] 14:09:45 Test Item Value Reference Range Interpretation Comments Case Report (test code Surgical Pathology = 104) Report Case: [id number] Authorizing Provider: Bret Brooke MD Collected: 06/12/2022 09:05 AM Ordering Location: [address] Received: 06/14/2022 08:03 AM Service Pathologist: Tam Galvan MD Specimen: Soft Tissue, Other, ASAF-COLONIC NODULE DIAGNOSIS (test code = [id number] 3220) FuZzEwMzNcZnRuYmpcdWMx IHtccnRmMVxlcGljOTYwMl cxnzHaDBVnpVEmK4Ioylok XNkzGY0zJU3voGakkHZtjA GgZWBdNjVqj6eev190xPWd y7dzIFWVedzrcWs8tPolH9 3yq9G4FkkiK62xuCXlNTK8 ARDjSMShrZZvMYGrEWR7LK QztFPpK1tpLBWoAD8beodh SLseRGodBUXdsGS2RZFzbD XuT0KtJFAyJItlNVJodkv0 EkLyGd7viFCneHktDQiiEC WnNJZuAUajGGNwUuBaJ90R VCBUSVNTVUUsIFBFUklDT0 vITiIET6YTGJBrZRRFD5vN NE0NVDRjxmZjNBNrCgDQSU 8XS8SIE4lHSUhJUNrtLQqM VZ8XDGWXHBMRUDTROywIVX PFO78vIE1DRDGHQxckSk3Q VLzuD3SRPVWUN9KITR1EKR LoqfPzRQBtJt1uXCNGGElQ HN3KAKZGJLOFCRTpaq12GR Y5RhXpu2N1GXW2WOOhACTx a2lvHCJquVIbDyHhZfTlIn CiZepdrNQdRLNdWaSei4em x106nOZel0fjDIQaQpG1nD EhMAFjqWGkE095GQMhHIqy f2ggz3WlHREvdYAsc2M6AZ JXasezkQj0hFslK66nq5L1 PfgtN3mgKGFqYKEgC5OsZI 1yXDTbIxb1MRR1QRQ9KOKj YWZlG4LrIV3uYKIxjESmNV w2v2nfbHsdCHDhBAW8m8li HLdyuyCsSE3haf9yhHe9q5 xjczEgRGVmYXVsdCBQYXJh X1XpoGngGg2ziUs3gCtsLj huPRP6Ttz2AP4uli69uro5 qEnsOTUypahsElM3GXopIH LbtjvoPIk3WAynJEKzmGP5 IDOwmKMhH6UeLJHrYM0fyz o2KCU5NYgkQUZoXaG2RMKe iTPtECYgoIfxDJxyd278IR P0KjRmYM2kM2Kif8D5nT9k aXRcZGVmdGFiNzIwXGZvcm 1ooCYaFNxzu6GhSIK9dwH0 cPPzkNZzDPBmSoC2SIpuAD 4urb55IIHfCQJ5hz8yrWUq zFhoifGxxQMhWXgbF1CwVA Duu986JFKaE1BzFGVlf7S6 djTaAbMcLFSfmJS1ezQ1VS HbMZ8fajuif8uuYYggCDqm FVHqupY5grT0IMSflALoS9 MpoB5wROZfGD9fmhzff9vj SXX4QEfoVTTfGPE7TuMbWZ Idn1Mrdqo9JhLax0DdjGDn ZXahP64or379HMZkepRuH3 xwbGFpblxwbGFpblxmMFxm nqU5HDDcOTzkgnjhVQYnPC dmI0bwCbGkOXJtsVigBOud k6DyBMIjOPQuZoGasGTcXV LsQrg8MTPuiUDxHJNdCqYw C9fidhvkVzBQCNVbl7kcR4 jsnUCZkYDwE4RdGCuilqIh VFvwVWfmWWPiYRF4MK50RO lhYSTesy28 CPT Code(s) (test code x1tehBZpVBBgnXO9QaAgNU = 3357) Naa0rob9IlkKFkwATuHCbg eLSqtzFnko66wUD8jI23WD 1uMPLsKaA9REDqzjN7Ucn1 WHPhKGCicOJbE317a1ohm6 uhuxMfmLR4qMheYXMvxxhy UrD6XVdmTZEwvpjoXHx2FA qyXOGfgMB9AJSelINqX2Zd HYCdLW8dptr4DAL9BYojPD AzKwE5ICZvaOBxDYJguQoy UXhsy440PXS7KsVfIUTaaw EpyPehnW0oIpZhTUB4OWKv NCwgODgzMTFccGFyfQ== CLINICAL HISTORY (test d7ezhQClPDEguTD9FfUhUK code = 3905) Gwo4joa1ZuwAKnfJNlWBqa nPYdceDvey86hOX9dZ28MK 7uOUVtBwO6UJQrdlM4Lsk4 TPBqYYSarIRdY319s6lrj4 sqrwGbkAB3sAwpYOCdbkly AmF6NJjdDTCwixraFSb4KZ rrUWEhmEF8NLTlxQMiU1Rv KGCcOJ1szbx5PGD2CKydSY ZiWeY4KMPrnQJtPCOlrCob JMftm340UYY8LyMbECVjnu GalIacpD6iZiOhRDI4QkV9 Sn3vNT6uBZszMN45uEHhGA SfpQbuqJ9ohBIxUrUkjlpB UvziHA8uVE9kJYuewUKiuW 5zdWxpbiksIHdobyBwcmVz QA74KJRxnA5cpRyuZMLvmD mbeb9RzXIMcFqqqdN8mIUr ZH2hOxZlqHenZPskcSFmor UtycAuZVsmcVQjg4ofzx0d Z0IUCSR6R2oxg9SjZQRzyZ 9inWUxt0WtmET2P8Mzy47w BvEvuAFqUXHyQOHvaJO8zY 4nCVJsDDEhJLJ6jG7vIIMr cn0= SPECIMEN SOURCE (test p4gqeJZuDXSgyFX7WgAcXE code = 3377) Nib9ram9AvmYSqbRIrYXuj rXQondLkfi51oIU4gE07BW 3yYZRzPtX5CEHqjaJ5Wyx6 PPOgMCJkhRUbY764g0hcj3 ejpnJaeKO9iWjzZLZyxoxw ZvO0WPowCGRycibiSAz7JZ vgIZVvdAL4JLOgeJOnM3Vc MNDxJT9spta3UTT4OYohGZ LhAgQ0BCAgcPVpWTPhgIxv HJxtt594WOF8NzIbCGJxhp XcnScdbL7pWwYqOLGSDXRh W45irZQux92bcIA2aFZnuX VccGFyfQ== GROSS DESCRIPTION (test b5omeSEmFTDldIDXVNJvN0 code = [id number]) zwoiOnTNUmvZWuI6Qklotq TUaxBW6kYO8bxKzxqWNvaI QpYI6AUKVeNfIkBEWkiOIo sqXzFzAxSRAbdGSsnJY3NK RaMY8bbcdjDJziQUdsPBSj ssV2QJGxbFOzW5ZuTQKrBW 3foxmbFOH7YGdpzG2rzxUK PfmkAe9txROwwLcrNrRvVv NoYXJzZXQwXGZuaWwgQXJp FGk3kC4RBqmlPKC7ZBIGNj peEXCeST4Iv3hxXIExkUXq KNQ1HYpliFUaDJXkBTCaZS z0KBCqXKyuqTDrHA5kxFta PnaagLegl5ZevYHaRKncYA SnQKBuQYmpVORqHE3UBsWc UXRgAKFnRMgqLRr5KDm5PN 9WUyAiICAzMDIzOTgwNSIg VOb1AOrbKV3XPCYzZiMzFr BiFAN9TZI0ZpMgIRVoBhBh XGYgQXJpYWwgXFxmbCBcXG 6vmKxzxKYyimSFFyJBi4T7 HYDlo9M7JVukL7XiCJBjLH BhciANClxlcGljTmVzdERv YzEgDQpcbHRycGFyXGxpbj BccmluMCANClxsdHJjaFxm ceWlOZDjR5FxvlBoYPQxTM WtKFhjPdCtPRLsx0p3iBE4 nRIrbAZ7qOYktCmuGuUuZJ 9exLXtIV2iJDgsNThpndJi l7IfZF10kZBcveDfrxRsDo Hvpiorp2foRrRvq6O4cWNp HMhoULHmGlL2ATQijPFdCi HdC47wkBZvRJm1kCHhRLWf xcLxt41am5VjmZNwEC81KG J4XLHghpMvwV1tedppEWKp LjQgeCAxLjMgeCAxIGNtIG Kybg8lXCatuZbhrx7dbcJ0 IHRvIHRhbiBjYWxjaWZpZW Evas8aePduEJXrIMSncUZz jUVya6SthSDcSOUuQXHrqs WuzkGovDXqvVFnrYL8MNSy aV3xBFZhLGOwTQKyzXnze7 luZyBkZWNhbGNpZmljYXRp y70fELLnsxBQXkciKGMcIL rScXAjz2NwETuuSWMzBWOF HUQcVGYTGEtBH4UQYQTsQZ kgmKtlqA5sKKPxQ68gu1PX y7NgOTWjFHbmp8cslOjwm3 VjdGVuZFxwYXJccGFyZFxz wZ7nUwFhr8aegHl3FBcuaf G1JHSjyx8AYpgexH3uJrNu t9iccNh0IWURWjspwfM3z6 eutPsar5NqkOAcNG9HIn3= MICROSCOPIC DESCRIPTION k8cwgNZiNMGvgPB4YtDuII (test code = 3371) Zbh4wwb5AomUDawBWqLGbf lOQsudMuro03zDJ9bB24ZL 1iXFGdLuQ0CUJbstM1Dqn8 LMZyNZJysTUeH186q1riz6 oxsxMkmVB8xUuqJTPxmygy AlL1BYwxIUXzyfqwCRt5DQ dzYZJfyIF3TBZymRFjI2Hq NPXbZK4nnms7CUU0KFqvUC FaUdZ1SPOgwIDsFWSzjLyl MRiso655PNX0SyJhMZQqwy OosGlzgR9rJqPhKHOYVYEi o6IcOWAzJEDtkg5= Gross assessment was [facility] performed at ([facility], = 2777) Department of Pathology, [address] [place] [id number], Technical component was [facility] performed at ([facility], = 7168) Department of Pathology, [address] [place] [address], Professional component [facility] was performed at ([facility], code = 2779) Department of Pathology, [address] [place] [address], [facility] [id number] 14:09:45 Test Item Value Reference Range Interpretation Comments Case Report (test code Surgical Pathology = 104) Report Case: [id number] Authorizing Provider: Bret Brooke MD Collected: 06/12/2022 09:05 AM Ordering Location: [address] Received: 06/14/2022 08:03 AM Service Pathologist: Tam Galvan MD Specimen: Soft Tissue, Other, ASAF-COLONIC NODULE DIAGNOSIS (test code = [id number] 3220) FuZzEwMzNcZnRuYmpcdWMx IHtccnRmMVxlcGljOTYwMl jsylAkHJLwiOXxI2Yqseap UIcuGG2bLB3ckEooaGCnrB RsWEDzNhKwm0twi023eIKw a8vbHPZSmdntnRj4uNgaV0 7ed5X8IfilU38puUKxWFB5 VXJhYBKozEBsDADwVGC5SY VxmAKlK3inJAQjQR5sucma CIgsUZkhTKOriJA6RPYxmU XuN6ZmECPmALzbKCAcuyo4 CrIiEh8niLTxxNtlCHnsIQ FiAOWhTArhVHLeJhAyG90I VCBUSVNTVUUsIFBFUklDT0 iOKuVYV9SUXZNvIXVSK0xK EP0QAHNumtBvXAVqVlDSRU 3OP6HUI8qCTSbMXQacTZgB PB7NECUAYSXXBRTTMskEJI BJJ98cQQ1IWMHVEnvmPt9X NVotF6FVSXRKQ7KXZD4TGL QqvhFxLFBfRc8bYLXWLCnS BD8BKOOLLGPQIETdbi71MB Y3FpFrb0Z4FCS2RAWxTMVh i7xeQHDlwEKxPkKyZvJyJz NfPtbowWNwFESvZrDif8xa c361xMPin8zaBMGqAyD9bV AsBLRpeIPrC594JAZbRHcm a8yvx8ZuSLJihCGcy7Q2VY YErqyhyPg0mLcaY41ec4S9 OejiK2naXKGgBFHcT7ChBY 3oABIkXzl5PEK4ZSQ7VEMk RGBeR3GpJQ7pFHVztRTcKX f9q9dyjXsrTECtAPL5v7qo NInraeMiLA0kdg0tbZc8b5 xjczEgRGVmYXVsdCBQYXJh W8ZsfNaiWm1moPf5wMfdLo mpAFL0Rrg4TO5bpb83mds0 xLwsFMVpzmubQgY9EEeeLG FborrzWLp4QYquWWJjeKN6 BESdxCQhP2CnSGLsDL4rzj h7OZY4TNakKHStAlC0MHIf eCZeYTDcdAjtKHjwo017TO Q5KuPdBQ3eT2Pqg3P7bC1r aXRcZGVmdGFiNzIwXGZvcm 2jzIRnEQywc7OjWUX8yyO1 vLCrcFLjOATbGjX8MSdqYZ 8hzm34LWRrJSI1hz3ljCUs eBiaxcGeqAMuYQbwZ6HjRP Xqr568LDHeM1BfWBOan9K5 vgBqWqCpEHUpjFW4feY4AD ZnWV9jagyfv1vhDDvbLXzw OAYzleY5zdB8AUYxjAGcG2 NtbG3fAVFaIG2tnqiyy0cg NKV9QVlcOTNxSNT6IzGkDG Uaf7Bdqxd4LlKms9UhrYKy AFxvQ56cm040FRFqlnPlU5 xwbGFpblxwbGFpblxmMFxm fhL4BTYjYCkydaujQKPtBE xaR6hfBeWnNJYjxDheGTbx m1VxTEPnRUJgFuDfqQDcBT FiDvg3MISzbENuVFZyYxHe W9ltjrdtQbUMVWPsa4coB0 uhdHALrJNjL7JbFTkhopOg YZrmXDnlCQExJQA4WN38IM kyWMTmwl04 CPT Code(s) (test code g8tsoRCcPSZaeWF9EgGvHJ = 3357) Okj7xzl4VkgAEggTJeZEnb nATuqrCett14hUA3gB86BK 5pDLQyLgX0LDDpxpL4Mrf3 ZHIvFRAfnLNzV653o5irn9 gkabYhyDO7aMubJUWrstbx VeC2HAhuBEQuxuygJGw3TW mdRSCaeSO3AYWgiDFwO2Gv DNTdVQ4cpdm9WUC8TSlzFO HrPfB5PDTuhNSiXLZlxVlq PZgoh136JEW2NjYyTGQipy TmgSuwpQ7tUgIjVBS4IAGp NCwgODgzMTFccGFyfQ== CLINICAL HISTORY (test y6blxANwDENbhWB9BeRqNE code = 3356) Tkb8umm2KdoXPfuEEaHCqn vDJxtlLqvh45iTN6mO61IJ 5kBYZnRtH2ZFPeqqY3Fjp9 JFEqXCSbtLIvP516u1vdx2 grsfJztRP6jXeoUILntcng VxP5GTnwCRYmpnnoOYj8RG ibHGCuxBB7JRBpoHSsM4St STUaRX8xcyz1OST7KUnmSX XcNlR6ESKxtGUuDPQctBts MAyhd548FQA2AmMlEHMfpg KniYhasY2bCfZnYOZ7XyO6 Ln6wHW1cLLrvIT04zQGmUQ TepPyxjC5rvBAmEsXrkvcC TfilKT9dSL0qFYbzoWKglF 5zdWxpbiksIHdobyBwcmVz FN99PLXlfQ1fdLsgGPLwjN ezvs9MzQDSeNuaxyV0sYAv DR7xXbOogShyFWusmDOjnp MrbeCwSEqtsHVrr1dapg8v Y1SMVAJ2R9fqq4JxXXTckC 4nzDBhu1QinJH9I6Vxa85i FvEccKPbHRXeXRNwgQJ9eT 8yNKTfXKZuKGZ7gK3yGHYx cn0= SPECIMEN SOURCE (test c7yazHPcXOFqyYG6QwBnGB code = 3377) Sny9bpj4XwmATypPJrUHpu vJFqidRvii04rDA5zT94PL 5xCRRuHqD4BPYipuJ7Ckw1 CFPuCCUjeZNsF949i7rig2 hmcjTkdSJ3hXlxUETpgaes CvG8ZYriCBItjmilFOp0XP spOZXpdXI3OLSsuYIbL9Zm IFNpUP7awuq7PRF7JBceTS KxHsZ6JQNlcHHuDAIvuHfy VKtpm940WZX9MhMzBMZrwj KnnKrgbA6xQwOnALNGGWCd D52leEZfq13csZK5zSThdX VccGFyfQ== GROSS DESCRIPTION (test w5nceIWxBDSwcWIPNWKfH4 code = [id number]) ggspFmSBYigJSaE6Hdwxsx RPvhNW5uWD3pxXcmgAKdgP SbMP6LQBRnLmJfWRSeqKVv zpWjRuHoKLBspCZegRF1CQ BuUD1nmxyjQLsrFVvdGLPo mcA0TJWqpLPfO2VvDQTaVT 9rxenfDOW7GTmftW6tijBQ ZadeVe8clJXkuBlyLhHzEe NoYXJzZXQwXGZuaWwgQXJp WYq0fP9VKqkaWZB2ANTDQr kdDMCeBY6Ay3jdGKWmaPIq HSA5NQgzfWAjUCVjXHMpZM n5TLKbXEnuhBDmKO9kcXff UxbuaDeuq2VkvPRnTXqbIG SjRHOeWOeoAVStBX5EUbYo CIDcVFXrPFozUXq3JDs3JG 9WUyAiICAzMDIzOTgwNSIg HOx2IOjdRD2EWCOsVkOeMb QlCOU2KVJ2ZjKgESSpOlAi XGYgQXJpYWwgXFxmbCBcXG 5twUdlqKDzrvMLRlFPs0Y4 PTRhr5I1EYikD0UwVLZwVY BhciANClxlcGljTmVzdERv YzEgDQpcbHRycGFyXGxpbj BccmluMCANClxsdHJjaFxm vmCuQBSiX9NwaiVtIVEiUE LxSEonAwTwOPWmf0w3bRG0 dEYcsWM8tWCnzRggXgSdII 8ydXAxOB3tVZrzXPuwxyXn a3TrVB12wQWadcHktjAdBk Yzhszax0ndCmDqa5X8jQFm BWchKIQwFrJ4QAXcfSHsHf GpI50cyELvZPf8rYKhLXPy jmFpc67lk8WqyOOnWW17DP D7ZHOtoaIxfH0withtBKPj LjQgeCAxLjMgeCAxIGNtIG Nfqm1zJSnilWvvib2wbsL5 IHRvIHRhbiBjYWxjaWZpZW Ezmp6jsCcqXKRfGUHznOJk bRIlq0RwgUSfQXIzEJOxfh WlfsRqxRHfwXYwzWF9RSZv mL2eALCzJUGcPMJdmGnti5 luZyBkZWNhbGNpZmljYXRp w28uDFCiyvTWZkkrJYRfSB jCvGTyi8MlTZdmKMWsKTKC TCXuUTKJWXpUW4CQMHKxOL hisFpiuB3zTRUgT00vx0TX r4HsLQEmEAvxb3kkvOvoo7 VjdGVuZFxwYXJccGFyZFxz sA3xHlYwi6filSd2UQnptv U2RHIgko8SRbzzeR0wMhAs w7htfHe2MEYBVqoiqnR9z8 hdnUfhh6ZnpTXpUJ2YEs6= MICROSCOPIC DESCRIPTION r7niwSYeNBSmwSA1JxHxVL (test code = 3371) Age9jra1RfmTYioZKhCHam uZCjloWbtl69eKF2pB18WB 6rWYRpLrP8MVTwqyO3Uwj3 HBXeFOTveHBbO520l3szt0 nlwiJqoCF4sEgaYWMgyuwd IlX4QSdwBMSzjbayJRw6NM nfQWXvfXB3HODheWNlS5Mx NPJwYR7epms8YEP8EZbgEZ FmAxJ6UGChgWLbPEUogFku PFspq013MGD9VqYzLEGgsw ClmKzfbJ3eItMtTAUFCDKo x8OnNLVeYKQzqa8= Gross assessment was [facility] performed at ([facility], = 2777) Department of Pathology, [address] [place] [address], Technical component was [facility] performed at ([facility], = 2778) Department of Pathology, [address] [place] [address], Professional component [facility] was performed at ([facility], code = 2779) Department of Pathology, [address] [place] [address], [id number] 14:09:45 Test Item Value Reference Range Interpretation Comments Case Report (test code Surgical Pathology = 104) Report Case: [id number] Authorizing Provider: Bret Brooke MD Collected: 06/12/2022 09:05 AM Ordering Location: [address] Received: 06/14/2022 08:03 AM Service Pathologist: Tam Galvan MD Specimen: Soft Tissue, Other, ASAF-COLONIC NODULE DIAGNOSIS (test code = [id number] 3220) FuZzEwMzNcZnRuYmpcdWMx IHtccnRmMVxlcGljOTYwMl xqrjGjVRDhiYVgD4Rferyh XQstTH1qLL6xxIexgBDmhK HmHVVkYhIia6vmw907yDRr y0wuCITFjfbkhOu9vJhnF7 8bz4O1LmxtC82ciGFfIVC0 DJGsHHOogNOaBQBtMMG4LM VanSFfA1duLGHoOR9xyidh JPitQNoiIYJrtWT9KNLokQ PyK6BxNNGqQYktKSFurhi8 ZgKoIf1gyGEfbFstERkzOJ VqALYaARhbRJJxMgXuN94V VCBUSVNTVUUsIFBFUklDT0 uIItXON3OMPOXvNQMBB9mD HP9ZILJkheJdJZSxBvKJUY 5GD6GMD6oGNLpVWAipTXyB FP1JSMDANGIAOBPJSacIWG HMY60nCM8FSGXJApccLc2B WQnwV3MZLMECU7STXB8EYK EczoOnQSQfVg4gUMHCXMeR UX2WRYYDQAOVZTNfxr72NM K5QdVde1R9XBG1DFHySIEc t6cvGZYvcEBfGcHuPcHqBj BvGmiqxVDyBAQeZzItl2jz w377qDPlv2nsLKNsGzF4cT LwAXExxPGnC652EEWkZGyf q7euw1FyKZSqbTPmz3S1SJ LNudoxeZa3fJmmD13zf8H0 TzphZ6brKVCsSKKkG3QjUS 2yPMVtPry8KAG6NQS8THXm ZDQpO1VaPM3dRRTclFBpFO o4r4ulwLdzQMCkDGX9h4ma FUllkpPuGO7yuz9udMe3m6 xjczEgRGVmYXVsdCBQYXJh B8CkrGzgMz4jeNt5mQeeMz snTUP4Ane8SB1ujy05uyw9 eZueTICqzxoxKwP3ZFqiUQ IotbesFDs2JFnnZUEfqUP1 ZDCwiLLvK2BjXETvXV9zsj h4MVW5YUfdTUHjXaY8NAGz pOHoVNWcuMtyBZxck640KL R0LbPuLP2vH5Ivp6O2tO2j aXRcZGVmdGFiNzIwXGZvcm 4krVJoSAmzf6MxGKI2kvK4 nDWbzEQgDRUeLxQ1MJbnTI 7zoc34UEReIGH9ub8wjBBs kRbiquMsxOTsNPliJ9PvGC Svu775WKAeR3LwDLGoe5Q6 htNkMyQiGZIphYS3dwG8UA UuVT5vrnvwm4lcXOcrELek CXRtsxB9puI8WIHduRJpF3 YcpW7pGZCjQZ4dokuhf0go ZRV6PYjlQCZdWCI2AvGcSM Vsx0Mymcz4XqCho9PhcJGf LNmcH87de403KFVrqpRrU3 xwbGFpblxwbGFpblxmMFxm hvN5EJJoBVedtjaoTNEgEK yaC4avCoUhIGDhnZujJLhj v8RqHSJfGFYkHmPptUQcGD QwNvq9YEGjxWRhYUDeOfOw Z3zvdyjwRpQIXJRja3tgH4 ddaJPRdFRpZ1GgDAigerJx IMtyYWnbHWJeWPS3AR91PY azPGXyqk16 CPT Code(s) (test code q1kzsCIdCLHrxJT2ZcDhVL = 3357) Gwl9qwt2DrnAKzjSYrWHzm fKSonkMfmw51pIT1dN02UF 8tLUWcLqC1VZMbyqR5Fah9 GYYrRHVfgUObD731z5hyn9 tdtvExiNU5vCicIYMyjamc LlM1ASghJOPqofbxQJf8PB oiEHJxmVY1OLNmsBBpL6Lx EIKpFM7xedf0BEY0NCriAW TwAkT6WDHupHEwWOBycMte YToco746TQS5GnVdVXZeih KduUbdbD5hEwKxRWA4IWMc NCwgODgzMTFccGFyfQ== CLINICAL HISTORY (test b4auySTwDAIziLQ8VjTtTI code = 3356) Tgb8qjh6TirBVvxIOmIKel eHPdfeJbsi67hGJ4iW95YR 4bLCRjUzT8GUKewyO2Vsr6 MBJgZTBcxIJtY106h9ccv5 yaklKfrEI6iYlpXUXbevaj DnU0SYsfBJOzxaifHDu7WT gzIESpcRV8ZGSavTIbC1Nj GNKbNP3tbou3YNE2KQtyUL CpIaS6TQMjnBOhWKIwxHwa SYmbd935GEO5LuLjNRVhnv KmvKifnZ9mVeIkCMB7TtJ5 Po4jKK0xDUzhIV96bIKwFW QpeVxwzU7ycOHcDiUggreO YhvnXG1bMC2yBQpdcAFeaA 5zdWxpbiksIHdobyBwcmVz RI12RYGyhK6trJezCLEuuH zhza0DxABHmMzszlF1vCRo WK6qTwAmvEyxWRxzePAycj EevmChVBvpbPRhc5pmwi2t R3DSZVO5Z3onc6AnJPGkzU 9wdKYjq7LckBO1K3Mcg26q CnFfhUVnRJVaEBXycPN3kQ 3nZMKfXSAjLYG1zU1qWRYl cn0= SPECIMEN SOURCE (test s2lbtPHqSSHsbHQ1IoIkOG code = 3377) Arv3bzl0MrkIThnHAbJMea kIAbvrBbqx23vBZ1pD09BX 0tXKAeYpV0JKBooyG5Pjp5 DHCoPKMxfDWkK793l8idy0 kjvpOugJL8zChqCOLbkieb LsG9STbxLTSxagcrNSq4IP laDPOavXV2ZCDmpTBaS2Lw HAQqMJ9nsvb1BAU4ANwnCA EeOeA7QODmzEYgUHZotIue GWvlw300EWL6FhQwSVViqt WteNphsF0jLmIfKTKTNHSl I39xbODwm64oyOY4dPYstL VccGFyfQ== GROSS DESCRIPTION (test c9axbOTsGOFoiKXIUYVqB8 code = [id number]) qscgUfRFMjeCHbP0Ffnqcf VHhpZW6pFF1wiEircNVjsV LgNC8HTBLqLfBzYJIxvDRj rfGfVkAeNWHsnOUmoBH9QP KfIR9grlprZHskYJnaQQVj nmO1KNBanRYmF3CpFDFrMK 6kfqfaQDA8YEvlmK2sytMO KnosHb9jgYVuuPdhKtGzDc NoYXJzZXQwXGZuaWwgQXJp IGn9oO0VIjshPHZ1KSYWPn fjDBGkOA8Aj0dlVSSyyZSa MBP3ZPvfnIMxGOIlEXJzFB k5KWTgIPqxwWKqNR2gcFqm LhrdiFshf6EoaVIqIWaxCN GpAPEdIYfxEYMfYY2BHeTt YNEhYBYiEBxaKAu5VWr3MB 9WUyAiICAzMDIzOTgwNSIg NTe8YNdlRG1SUGRmAnGqSg WbWAM4HQE8PjHbKIUzZzOm XGYgQXJpYWwgXFxmbCBcXG 5jzMotiVJfrvRPMsZRo3O2 KSHtv6O5TNtoQ4WxNUUmHH BhciANClxlcGljTmVzdERv YzEgDQpcbHRycGFyXGxpbj BccmluMCANClxsdHJjaFxm miInMBZxB2AsckHwEMLfAA DcALomOhYpINBwd1p3dOO0 iRApnGN9rOSibYbtWnHeCO 2eaVZlUI2vBSasDAzoahIv l2YfCI37iYCbdiColzRvXp Wnodyok7imZrEzk0Y6zMKh FZliBBVmZfW2UXXukSCbAc AfG49kfNEwAGo6rVJdSUJq cyPhv64nx1CroMKnLK87VD V8AMAwpbFoxE0ghmucOAVo LjQgeCAxLjMgeCAxIGNtIG Zjrv7xXKjldRpujb0ghfT9 IHRvIHRhbiBjYWxjaWZpZW Oiwh5axYeuPTBaPYAqnQIq yQVju3WadZAgTADoJOLrkg RvcfTquEFqtFVkvZJ9GIVx zX4zUCXdYDLyIEMosCzgx7 luZyBkZWNhbGNpZmljYXRp j18aSNHfaeZQVgjqOYLlPV kZpTRob9IuOIctEDCbLLVP WNSvBINBNCaYI6OTLKDkBU ttwBibuW6bYRPpO54ln6BN d0PcRFZrTUuhx4orxYhjl9 VjdGVuZFxwYXJccGFyZFxz iH7zGhYgq3umvVs5KEhsgl D1KCQjir4MVhdmlC7yYaWh c6vonGz9PZSZZsfywbP4y8 bwvKxtt3DfzVEgLA9SUe0= MICROSCOPIC DESCRIPTION d9xcjHZtHEIixZL0RdMmOX (test code = 3371) Nim5wsg1BfiNPftWHyQOyc nGBrgvUydw05wEU8qG48BF 9lPJUhNmP8DAVqhwD9Vou5 FFUjHACpqWKiO136p4ulm5 mvbpTldFS4vXldKYZlsovx OeM8YObsKCQlshbyWBe0PW kuSOYrgFT2FCZbjGMiI1Pf NHDkTA4yhjq4AEY8PGufXP ZhLdU3FOYstOAsACMovBec LVrpo537WGP2NvTdDDVnvn FecMopyR2mZmJfYYTLRGOf g8AvGGUmPICkqb0= Gross assessment was [facility] performed at (test [facility], = 2777) Department of Pathology, [address] [place] [address], [place] [address], Technical component was [facility] performed at (test [facility], = 2778) Department of Pathology, [address] [place] [id number], Professional component [facility] [facility] was performed at ([facility], code = 2779) Department of Pathology, [address] [place] [address], [id number] 14:09:45 Test Item Value Reference Range Interpretation Comments Case Report (test code Surgical Pathology = 104) Report Case: [id number] Authorizing Provider: Bret Brooke MD Collected: 06/12/2022 09:05 AM Ordering Location: [address] Received: 06/14/2022 08:03 AM Service Pathologist: Tam Galvan MD Specimen: Soft Tissue, Other, ASAF-COLONIC NODULE DIAGNOSIS (test code = [id number] 3220) FuZzEwMzNcZnRuYmpcdWMx IHtccnRmMVxlcGljOTYwMl ohnqGqKRSvgLQlW3Vrdqqu FNxrXN9kCI7ocWlcuAGpzG UrQWGeToWyw6vtf968kNWx x2mtKWQTsaulbYa4nFgnZ9 5pa2Y1JywwC00izDTkWCJ7 MABvSSCttHJzATQkEVU1WH CrqMQxD3ndAIGwRF0fmnxh WTqwQTkeLQJfgFF4DVUyxT JpW9GtVTKmIFmmOQJfvow2 AnJpDx1ghRXtzDbuTZstKF KmQRYkBMhtOSQnVqJjO37R VCBUSVNTVUUsIFBFUklDT0 mSDuTAM4AFQUTzOINGF3nK CV9IHACbatMnRIRxAcPOMV 4PW5HJA0pYOJnJBDvuOQtC KF3MMHGAHBYXGVOQYcuLEM ZIZ42lCU6ODBEXHaodHp5W KGnlW1EJTEXSO8FVSX0BDS LgdjDhIXCtFw6gQYNZLXrY AB8SZAFPVTBOUGBlzm92AC H7JlJhd7I3SJS5IMRbHQSn j8yfLWKmeFRqBqFqQeTxCi TlYeprjUFyHUEfZePmr9pe d967oAAlp2kxOYPjHjC6wY CiSNRuvLYbO947OWLnIIjh l8kbs0FuNTMfdXMan2X6YB HXrnkgxVs7lXloG25fu6K2 NpjjA4fnYEWuCUVzC2XfTP 4dSWCwRcd7XAG4MLM6HFRi PSLuW0TkLB7uKPCfyQTsYY y5y6wanZafJWLrBDU1q7uc GOqxreKuXS9zkf9myMf0t9 xjczEgRGVmYXVsdCBQYXJh P9GnqYjqPs8egOx9aHnfGf enEOQ0Rbb4IN6zap80afj1 oXqvXQYrhrgjGxL8HQdcZL XevbagARb4PEhtPINjrID8 IFZuaUOpS0AbMALwMH4xeg m7JNU7XEjnWTUuUpG5OXBq rOZzZOOulVpwBLonm470RL K9QiSxOY8mT0Ony3C7yW6k aXRcZGVmdGFiNzIwXGZvcm 5xuEWdWOusc7AwGZM7huK5 iDEdwJJyYFKmHsD4SJboZP 2vln48WDAvUUC0lq3zgTFf fRtbhkGdnKFuIPpyH1PgHX Xhz357GAWfG6IdBXToc4V8 hgGkQuTlLCBbyYB9zeE2DB JjOH3qmeoni4njESwmIWvt JLYkpuC0vcA3ORJyqNSxO5 YrnJ6dLOBnHE0domkls0kb VHQ4XZmdVDLgBWG1WqMqLO Hny1Uzdps1LuEhq6TnvVZv TJmwH95xd950ZLHhwsOuI4 xwbGFpblxwbGFpblxmMFxm azO0VVJpIEjzgffqOICdUL nxL7teVrBoBXUulTqnTVaq x6YkEHSrMPQaOuFvyPAzCT CbNtq9FZXfkUOtWGZdOrFh Y9vpepvlCfDZYMAgf9ohV2 fbnXKUeMSsR6AqJBuingBq ZAlcMQfcTWEvDPP2CP52GU zwFFNlht80 CPT Code(s) (test code g7mtmGMoABPkuKY5UkDnHB = 3357) Zcd9utf4GcxMUskDDsVJjq pCBewcIspk29tMX0xX59HG 0mOVItIuN9UAGylnX2Krm7 SRMnXFYbwATgK287r3yxn0 niwhCluCV6uSocGDNcwqux FaA3UHnoWWZxhldeNIh2VG srIXIsrWZ7NAAazPWnP9Yg TRRlIG9qvwi4WNN9VOerRQ GeAeX0LIFxmVGdWGGusLwn MBxam156PIT4ViZyLGRtsb MyiIhatG2yGbNbDIX7JCCa NCwgODgzMTFccGFyfQ== CLINICAL HISTORY (test p3pnlPMkVNJukWQ0KzRyOI code = 3356) Duz4xzz9PliCAroVHxHEon lXEgxxUfob83lRI3hB99IH 2nFMVcWyK8AYAdjgZ6Xll6 FTHaGTKuhDYdV131s6wbn4 gfrgMptFO1iXflUDDgavpp IjS3EOxgGEQiqhaeWLe9CD zmNCKbuBM9YZYcuLMzL9Ma PNIjRY7rtud2BKD5YOhmTU WtBhT7DREwdARsTCBcoSza RPhxf605TUA9XiAqTSClhj OwsPlkbB0nXoPjYZK8KpZ7 Wc0wST3rQEnzWR10oSJhAL WxlNqfgD8xhMTlZcRhscjQ OipyNF4pUT0zPOfxlYYriM 5zdWxpbiksIHdobyBwcmVz GW10BIMtqO3ceRtiAEWpwA cepf0WlKGJdSoqpwL9tEJj BE3eAmIbhWunDYjxzUNcwn EucoDfOJpimQJbq6neyc3o U3JSULE1T9qfx8DcJKEklF 8hkBTzq8WmtAO7L3Eqz15p NmLfrTJjCJUzWWAmaYR3dQ 5pFQQuWPKqBGH1iS0rRQGc cn0= SPECIMEN SOURCE (test d5dxyFRqQEGqsFB1LkYcXZ code = 3377) Hqf7fxj0NmtXMxlUEeMQue fPTgpwWpfd30mVU5oX17ST 2dCVBjTjU7TZOqfiH3Gib3 YIQjIQKcjPFaE765x4emc6 gyxqSwbUO7aYvqQEZgqzpp NxE7EZmdALPvjzbnPGy7DE ocHKAgdLG8ETCigYBnV7Tm CLKtLY5yxzs5VWQ8TFinQY YlGvG1SIWsoJEzPEFpsMku WVsii099GFJ3ZfOtGUBjam JmkPtrcC4sVjRtSEEOQESu L79axIZiw07jgKT7xSJniI VccGFyfQ== GROSS DESCRIPTION (test d8lueIFnRCSelYZVZWErK3 code = [id number]) cceiApZNDelFCkG9Psgzvc GNdhPK1yDW3klDzlpLTcqA FmQV5IMFAqYpNaKSMynSCp ytRrJlYjQOMdyCTwrDY9RJ WiIS0jbcycVNmpFXykTMDs etE2PVQytYSaW8LwBDZgSD 8lajwzCKD3FBsdgN7pfnVK ErkcDy2fpEYypPraQhLcCl NoYXJzZXQwXGZuaWwgQXJp NBh9sG1ZIlxpMQJ8HITAGx iqOUEoVH6Ao5dzXRAwsVYj PQD7QMhtnGDrBNNsPLEvWP w4VMCzAYqbhIGqQI8csIln XwlrtKyed5TadBLnJRgcOK JuDEUpXRmfOUBwGX3RLtOv JCLgDGRrVQpaOWe9ESp7XK 9WUyAiICAzMDIzOTgwNSIg XYx7NYwkQR0SXIXnRxPjZt JzHOL0PCH4KtViWTDyXiRx XGYgQXJpYWwgXFxmbCBcXG 7snSerhUXxraALTpERj5P0 TWLfi9E1QSqtP8WsVPPbHM BhciANClxlcGljTmVzdERv YzEgDQpcbHRycGFyXGxpbj BccmluMCANClxsdHJjaFxm zaRgKQPsC0JgvzFxUWNoVE VaKIbzWxYxILMlh5i1kZI9 zWIliNN0kETcnEoxGpSsNR 1kiRHtLF7tTOksBZavdrRq e6TmKW55eDCndoMgbtRoHg Vdrulad2luWhIqo2X4xABv SCxuODHuKaT1FQPhyMHcEh LaI36ztLFqHDv7zRUsTWJr yjTxz51ti4UfgUFuHJ10PZ S5DUTceoDyoU7zveyoJZNb LjQgeCAxLjMgeCAxIGNtIG Zxcz3yXErlwZgaey3dxcC2 IHRvIHRhbiBjYWxjaWZpZW Jzfo2uiNqhFTZpRVCnsFOu zUKad9DcmKFuHPHzVYKvpm KyngJbiCBkzMLazIB2QXXx yT0mDAXxRLDmBVIdoYdec8 luZyBkZWNhbGNpZmljYXRp a81mLSAfhxZYEnndGMQzYL zGnANov1DlHQlrPQIrTYAF TZEkCITMTZqZA2FXEPBhUY mhkGbnjI1uCKFjD28co7RX f3PiUWJdTVkjw6zlrBggh8 VjdGVuZFxwYXJccGFyZFxz pO4qYwHyu1fbwPg4GHymox T6HZJtkd9OMxjaxN1sWgAf b4sfeGo8SFBNTbmmuzY5j3 plvCeux9QtqNLtDG0ICc9= MICROSCOPIC DESCRIPTION l6yfiWGbLIPknQM1BeZwNJ (test code = 3371) Rvi6bco9SmzIGfsWJtISkp uGWhrkZdyz63iHG8fL02SA 5wUGWnZsZ4IWEelpQ2Tlt8 TNSwSZFgnSLxL099t7mhn9 wwpfUlmOU1cOyfALGixjhf EtG6CMttSQBxfzbnKPy1BL ymDXEcnZW4NKGbyOYiQ9Ol UNEbIU7vukx8TZP3JJouNM NvZbI4PHDsuHHvNGJagFjw UKsze549XEA6InEcIHLcad EykBxvhD5zJmQcLRIAAAPx g2MbOVEaAUEkfq2= Gross assessment was [facility] performed at ([facility], = 2777) Department of Pathology, [address] [place] [address], Technical component was [facility] performed at ([facility], = 2778) Department of Pathology, [address] [place] [address], Professional component [facility] was performed at ([facility], code = 2779) Department of Pathology, [address] [place] [address], [facility] [id number] 14:09:45 Test Item Value Reference Range Interpretation Comments Case Report (test code Surgical Pathology = 104) Report Case: [id number] Authorizing Provider: Bret Brooke MD Collected: 06/12/2022 09:05 AM Ordering Location: [address] Received: 06/14/2022 08:03 AM Service Pathologist: Tam Galvan MD Specimen: Soft Tissue, Other, ASAF-COLONIC NODULE DIAGNOSIS (test code = [id number] 3220) FuZzEwMzNcZnRuYmpcdWMx IHtccnRmMVxlcGljOTYwMl hdohQrJMOgyPOhA0Nytock GHosOX8fHD3ltXsiiATobQ YxTFKpEdOgh1zrr537fLOr u4loJMGUlazkyRr8cWywZ3 5cm5H7DgjqT36mhXRlECP4 SZCnPNCxtDQuAJNoTKO9CW UhsNBjM9asJYRtLP9lhwsx VXkrKCtfXWFgaGT5SMUwiG AxZ0LlKBBaUNgtQKBvouu3 EeNbQd3tcVAvyPwzRYagND SyMSHyMFisNHJfQsVfH63O VCBUSVNTVUUsIFBFUklDT0 wNFyVIJ7GQCLHiUKDWK5eY ML2NKYUvgqTnWJEpOsMSLY 9QI3BGJ4zMZIcZNZcuGCeQ JU6LPAXXGVHGDFICUxhCHT MZV18zCM5CJYXDXfsyAx1W HDumM0KVJPQTY3OKSA4ROM MtdiJkGYDmSf9gRPGVRWhT JK0TALJMPJXJZYMkiw97WF I6AlPvp1C9SSP6JBJsWCUw s2gpMLIyySZkSqHfBrTpOt YxXmevgGRnNEMfFxBza5ow y729cPBdq3fvCXXkQeB2nQ SvIJZosBJrB086DXQnQGbm g7lvh1AsXMNrwWEfv3Q8YT OHgfsurOq5jQszQ64xx8N4 TwurM8cdAEOxURLlK9UfTB 7uJGSxZii1MVU2DWE7FKJh QYUbT5YoPE4qKZLjtSKiYJ r8e7twyTwmZJDvXIE5w3xr KUslfmKjLW7kun2brAa9s0 xjczEgRGVmYXVsdCBQYXJh Y3GbnVwyOj2fqBy7kDvfRz zaMSR5Wet5VG6jft53tit7 wGrlARAtifhvZcO2EOpeXT VwjmtwLOp0GMsmPZIgwNR2 AZJihVTjU2EgTDFaMJ1frb x0MUT1IXqdJFHrXqK7WFRw yFRrRJOueHvwZUsxp303DQ V1BsHyJZ3wB9Gbt1J2bC8r aXRcZGVmdGFiNzIwXGZvcm 9btSDlMUkyp8HhRPT2ciV9 sOMtiXGgMHOgReV9NCdcLN 2gqg34RQYhXBQ3lk8hlZCs rOxjsyHacHFbFVjhS4AmNE Alb474DHSmL4IaQHMxj2I8 dxDqUgYuYIUzuOO7voW5YD SnCB0xzcxgm1xfQBisESol ZGUepeP7ftW2DOZvgKPnM9 HlpN5eQDDzBJ4zhbqxx1un OGR5BBejOHWvRHN3WfHzMF Jdk4Uxrxj7XnPpv3EkgCDe HPrbP60ir016ZTFkwzBvQ1 xwbGFpblxwbGFpblxmMFxm ckM8UGCwRTkvuepjNNEcHI lfP2qsMpKtESMxxOoyZJrc r1NmKBPoCCKlZfHujAYjLC SxTsy0MDMgrGKbQVGlMnGn B8dxuczrFeHFCYHit6vhU5 ffwFWNqFKgT1AeJHssdcBc KQiaFKhlBTAyQPM9BX76SJ ytMIWxef68 CPT Code(s) (test code z1jhdNGfTICulFA4DjXqXZ = 3357) Avx4bza5MlzIYkjFKlPFuw cMKibsEjfm49rBR7zP24MK 7nIURwAdU5PIUrrmD9Rki4 OGTxSEGswDAmZ654x0xwz5 sullJswCP5eSxjUULtfwpv HlS6RTkmIKSacrigFBz2LG shZHSicVU6CSZxnVPqI6Ae OMPbCA8dait1NYC9DCmtUW DoShK6NFIxsQYcZEJxmRdt QUupg790UWU4CfWiNWJkjw XwuKvruG7uXlHlNQE1YGGj NCwgODgzMTFccGFyfQ== CLINICAL HISTORY (test e3wceHOaBPYbxYC0PnJrPP code = 3356) Pxk7cch1MblMEtdBImWEam dGFkybJbsf66bXM9pM68HQ 1dQOOsKoY0JEOfypD3Pqd2 QXNpRMSboQJbU502a3ppp6 bohaKgzXD7hLxdGJTummrr OuX5YUszWUWgfhxkNQq3PI oiTVXcmUJ0WDSjyRIkX3Qu MARbTD3eyuy7DXZ6CRbfQI DoVcF3POPxsEIaTMMriGul RKlro156GFY5SoPkUGLnxl QhpVuwlM6pRzErNHI2QjS0 Nq4xXN1fXIxlUA05cDToIC ZzkKlqxO3okWDdVtRmdkgM GwjkRV0qIT6uHDfqbDXpfC 5zdWxpbiksIHdobyBwcmVz II32UVDweT7ehLowUJPexK yfsu7HjMIZdVkzrmM6dGRo MV7oGuWeoUtqRAykyXKhko OosjZzSNtzwXJel7hdwl2b L9HTZHA4O4nwr8FsSJUitI 1akRDuv6QjfYN8U1Asj77c ExHciAMpSWNgPZKavQU6mA 9sXPIgEBPrGEJ7iY3vUSIw cn0= SPECIMEN SOURCE (test q1alwZYpAXJigPR6ZiNkTL code = 3377) Pyf6dhw7MhlRUrqKLzOTpp vIWmjwEcxx82qTQ3rY85OT 8pBFQxWfK2EYGxrxN7Nzv8 ALGuYQYsnWOfI210l4qhm9 xdxuSibNN1bIckFIGtrogq YtN4ZGdeSTFiolfhTIq8FV giBGSdsAV2ASNjjEImB4Qh JLUzEV5ztkr6ZWV8ZTydUZ ZgWpE1GNJnrNKpODUchAbj SRbus411OHN7ZxLkFBPzbt XarIxqnX3iXtArKEGXKIKg B69juOQve90lrOR2aWDhiB VccGFyfQ== GROSS DESCRIPTION (test b0dloNCpJVNiaYPBUKOpF7 code = [id number]) ikplPnLOQvfJEfA3Ihfmon ULppLY4iVH7jvDeitXEwaJ VrIP9IDJXlIeTcQZIymGUt vnEvYcCxSLLzaLUmxEJ0TQ HdEA9rxqdvPBfuOUbsHPIv ydM0VSYcgTTpI7VjWRCdVI 4sqnnnOCU4EPnpgB4vlsTU KuvfUd0hyVOniTqnYyIfEl NoYXJzZXQwXGZuaWwgQXJp MHd5kA1AFdfuNOM0TVRWPa seFCEhVM8Uj6xcSKXcuRYf DAA8KCdefOCcYZNbHVAeBJ b6UEWrGRgxjMWuPI1lmNij JhpyhRsoj8IzwYHbCYfkHK YqQBDyXBtpIBVlPR5MRoZs BEUpHCDgVEdhTVn2ESa8GZ 9WUyAiICAzMDIzOTgwNSIg MMv3JXciTG1WONFkYnLlCb WaRLW5XER5GmUqEIGxQbAn XGYgQXJpYWwgXFxmbCBcXG 3ezOayeQQuifILBmJXh8H2 SVOsm5N7MEzhC1CgFVZbZR BhciANClxlcGljTmVzdERv YzEgDQpcbHRycGFyXGxpbj BccmluMCANClxsdHJjaFxm qtTcYXXiQ8IvrpWoUULvYM EtAIcgOeTgYJNcm4o2uSY9 hZItcKB8jANcuEmsXbHbRH 9drITvSW7hAXorCImlexMl n8JyTV02wJVkyrSxorCdSg Wtbmezv8vwWjQjp5Z9iFTl LFshGZSqSyV9RLXxcTMdFr OsK67qbADlBWh3oIUjESFl rmKrr16gi0DhsRGtQD34AP F4ZPDkilSluN7jchbyHBLb LjQgeCAxLjMgeCAxIGNtIG Btrz2gRAarcGecbp0kpuX3 IHRvIHRhbiBjYWxjaWZpZW Stht5dcWvpWTItLFLmcTEb fZMvb0XqhWLfIPUiLPMmab NjiaBzaZNuuKPfrOP2OFQo rM6tRYDuZIXjTCKyjMyrn8 luZyBkZWNhbGNpZmljYXRp l98zVRRezdSVJczwDZFkXX cVcXWgi5JtICrzKAStVULE UWQgHTGCOVuUJ0YTBOVcDR ggbLihpZ3zXNFaY78dl6LC d3KtPVTvXYgzf6lazClxd2 VjdGVuZFxwYXJccGFyZFxz lE7eHhHhh2cbgHk9HRcvpu K0PYXxul5SAyktqW4xXgTa m7qpuCr1ARFGPadkyaR2l8 uclVdsc0SdpOWbWO0UEm2= MICROSCOPIC DESCRIPTION b8btxAQdKUUjzAH2GmPuXD (test code = 3371) Gsj9hue2KbyLJzlXXfIAnb vOFgusMsdh08mHH5jK47FQ 6hBXAbDlR2FOZlebI6Svn5 XAExZJNojQVgT326x6kwp0 afdxEuqHG0yZriCXIoakni NcH0CSvxMGBnrdufGTr7MW slLSLbkAP8CFPgmIReW1Cv FTGrMJ0dhlp0PCA2NAxjYK EkRxM1CCMmwBIzTQAgtQal LHcxa471SPN5SkDeZCYsxx YatBvvaV6aKsTtMKBTMIDy n3NfCYQvPGDnly5= Gross assessment was [facility] performed at ([facility], = 2777) Department of Pathology, [address] [place] [address], Technical component was [facility] performed at ([facility], = 2778) Department of Pathology, [address] [place] [address], Professional component [facility] was performed at ([facility], code = 2779) Department of Pathology, [address] [place] [address], [facility] [id number] 14:09:45 Test Item Value Reference Range Interpretation Comments Case Report (test code Surgical Pathology = 104) Report Case: [id number] Authorizing Provider: Bret Brooke MD Collected: 06/12/2022 09:05 AM Ordering Location: [address] Received: 06/14/2022 08:03 AM Service Pathologist: Tam Galvan MD Specimen: Soft Tissue, Other, ASAF-COLONIC NODULE DIAGNOSIS (test code = [id number] 3220) FuZzEwMzNcZnRuYmpcdWMx IHtccnRmMVxlcGljOTYwMl bhlpHhSPSihSVxE9Iaflsb NSneAA1lQO9xgFdsvOYzeV GuKZPdOfDeb3okp310nQXx l2ffKWENkmqemOh4hTzkL5 9rc5U7ArwbM11gsAIkRQE8 PZNrLYEepBFtFZZnJEK9PU WdrMJyV7qkXFGyKQ8uiedi NMgkUPreYTHlfMH7MRQpdL NxQ8MjDCOiPEouDBSajbj1 GeJtUj2huNFdqSsiJOxlQM MtCPNjSEraDXQuXrDzA04F VCBUSVNTVUUsIFBFUklDT0 uNQfGWM6AKTUAnFYJFD4rA XN5ZTLIupgCoSBMgMaCCUL 2VE3TQX4pELXtBBJebPBsV XA3ORZMPPQWGOXSBUvaDJX HTQ09fTI3TFXPLAhqsYi5Z NPuhZ1VGHGOFE2BHVE5WOS ReuhMvFAWrQd9mOGKEWYcJ LY6UAHTKTUNCRTAuvb94JX G7TlHua0B2PMU7ZLVoCVUr c9pjABSzgBXbQvFuQwUtIh VqUpbziAXzRQMuRnMmf1gg v573aCTah0ggVUGeSsG7yW IuAAKbxEJuM524JMMuNNlm e4tit5AfXETrsVBta1P9WU KZxclleUs9aItfU50jq0U0 InytD3ahBQWfXSXmB1FnUI 7cRUJbVqu3KCV8LCA5VXFt KVXgQ4EjII4wRICglOEgJN l6w3guuHlrVVPwFKC4j1ce GDewatCnMR7rkv3mmIp9d1 xjczEgRGVmYXVsdCBQYXJh J0BqbQetQn8oxFb4tSxiFn baZDT7Cnf2BZ8wsg40drn0 fVpqNXQkuocqMmW1KAzfOC IfjzeeUOp6VRqsUTAtjFP3 IVXtyFCoY7AoZFMbVW2qxa j9TVX3OMbiKLMfGaM6OQLx fZJjKOLibJcaBJskc084AO F4UmSlGG9xF0Nvs6G7cK3f aXRcZGVmdGFiNzIwXGZvcm 5fbECwHDqet5LlDXQ8xyN6 kSNmgBCqIRKmKfU1YQqgRO 9vmv49CSYpAIY4zy8rnSLd jPssfnTauQIpILbwF9PnEM Irx905APVoL8KuGGSvm0V5 tzNfKmTnBHVleYI2yoV1TJ EbTI1ljzbqo1wyPDodUPdb CCZzxtV6nfW1WQZhvSHhF4 ZqlJ8yBTZsMY7stqldw3td JQW2RZkiCYXiSSX7GlLpDK Kpt5Dppwg7CnKme8CurIHq LJkrG53yi742XQKgzfYbU6 xwbGFpblxwbGFpblxmMFxm znE0NPGrFWgiwjuzYEIoJE zjX7svXiPgOZXdnKghJHaa k3LmPKXoDNOyTfToxCZhVL WfVdk3EQXphVMuWUPrFrAx T7xruewxOhUMTKXcq5ylF7 bfoRPSpOLxX5VyAZboihKa XYwsAMvwTMWuFFK3NR48ZH ubRHQide38 CPT Code(s) (test code e4ipnAEgHGQiqPJ3LeLjIY = 3357) Leh6had0XqoJCqjYGfRXyr pCViekNmon51hYP6bG62QO 0lDGReXmV6XUYrciR3Twx4 XCOeALJhyTPaN393q6bnm0 xqdfCasMM2dCtrUYCvnoge UyB7SEcuBVQrxebhOCw3GE kbZQHvzIY3BFTqsBNpN8Bf HPReTI7qsee2GPA2NZhqDA CgSaJ5ZESrgSUuXKDxcQbt SZkru211ZFI5UnZmJWSadx GcyLavgE7mVgChMWQ3DGHz NCwgODgzMTFccGFyfQ== CLINICAL HISTORY (test w0xeyKAyAFCwaRI6EhPxCT code = 3353) Ogk2rsp2UeuDMfpYQpLCzb dODwjeDoks11tWO5aZ87HS 3aHZJyVkP4LQPldfW6Gvo4 JXLaCPMtaZFpS717b9nrn5 oeaxDcqUV5xKjnQSAvhkjh VyQ0IRukFMShvmufWJm1HJ unTBUynQC6DVYnsTMzW3Qn STZfYZ6jcns1UAM5MRetUQ IrSuS2UANaqYJiDICchTtb NViwe220EIP7XhFdZKQiws TpsHxrkL8lFhGxZJW4ExD2 Mv0qDH2nETnkPF39zBUjOZ ThlBbzkN1yjCZsVmDchjcI MjajKX6kWZ8fIEsgaCNvkT 5zdWxpbiksIHdobyBwcmVz DT73UJVrmD6gqHttGVZrpT ltor5DmNYYxZsckdI0fEAh DC8kYgIznLwuQGgckFGnkw JxqeCtSDdecUMhy3whin5v O4TUFTG7N5nbb1DkZBYqxH 2rlYTdz6XunWY4B8Mhk53q NpGlzXWfBPVqBJGvlNR3jJ 1vCYGnARJmNSL7eP5rASCd cn0= SPECIMEN SOURCE (test p9rsjHNnUGQzyBT3ViChKN code = 3377) Iyr5lam5UzyBRmyKEaGKgy kEMbylFkvp42wRH8rG90IJ 1kYPNoZzP1FNQpgzL0Lif7 ONVsLBKwvLXaR412c8znn6 ftubFwvTB5dDmvDDHwmwsf XvL9NCgeHOOulrhxIWu5JE qqFJBlfNF0AHOkuXFcR8Iz VMXxRT2gztk9OBL8XCgcQQ VkUxP8UDVgzYGuLBLlnHzk YXpuq421LXN1AtVqLBOcxe CyhGsjkL6yPuEmGFPAAMVt D66juDQqe80fzMT0rBUkxZ VccGFyfQ== GROSS DESCRIPTION (test i4ynjSZzBTVctKMKYJZvS6 code = 7529001958) mzwuWrDLYjjYXbR8Ptqfbp NFnvKR7yLG0vjQjziAVljY SnAF9HPGVyJbCkAMSiySBm pqFkUfMwAMZzwSEcxDF3FA YxMF9jxbdiELvlEZwpHAEt vkB5BNAqiBTaR8UdNFTkCN 8lbbeqHRS0FYibhW1rvuRT MjuuBz2urUDpeBmeKsXuVh NoYXJzZXQwXGZuaWwgQXJp EDo3dR6MYiqrABY9UQXMTl rxJRItXG2Yx5miCIWmmYEt RYW3ZByypKRqHVXsTTQdVD s2DFPbQNaexUXkQG9luQab ZyltrEkbm4VhvXBzKNcsED GtKISrJUbhLBJyXC9LUyRq BFPfVGAmVBpdEBw2UPf8IF 9WUyAiICAzMDIzOTgwNSIg IHk8PNcsMZ2PIAWlCzXqJf DqFPP0LCS7WyMqCYNxYdZf XGYgQXJpYWwgXFxmbCBcXG 6yrNposPScqoKZNcPXf7X6 UNXxu2P3FQbxD5ByAXEcHS BhciANClxlcGljTmVzdERv YzEgDQpcbHRycGFyXGxpbj BccmluMCANClxsdHJjaFxm ybMhYFMfD3McgnBhXMOtKG KoANipNiXgDTDic7f2oZS0 gMTpzSN4tRTuuYxwPyEqSJ 4wiQYqBR6qMAwaFKowejVk q7OsEG31nYDaesGdgpVmJx Dmppwta3iqOaDpk7B1oJLt VUnrDUMdBfD0KQSjlBNyQm XbD12ntHRkQLp6ePHrTLIa nxOwu05fe8HkdRQpOF79UF H9DLMeggFouI5eoxorGNLc LjQgeCAxLjMgeCAxIGNtIG Gzjr0lVBjkfHkxuf1yyfH9 IHRvIHRhbiBjYWxjaWZpZW Zbml9hkSepLFMfYQTzoGDx uWMdg6PrrTDfXJJlQMJedd ZobyClnGKvxLEnuXK1HKYv rJ7zBOZuOZQvKETfqMjqi9 luZyBkZWNhbGNpZmljYXRp p64hIWOewtMXBbhuZGHtPM qIdEFkx9YpAFafTCSoJAQY UZPaGJHSZVjGN2FBPJUhUN odzZzywD2uOSNsE67tm7UQ w1DmLYFoPTenk6nuzKjcf7 VjdGVuZFxwYXJccGFyZFxz yQ6vDaDcw5knfOt1AQhubw R9PTQmwg5STspmoX5nFnVv r1tvmLi2ONCZUvmhacQ7h1 rjoYwxt0GpnZKrKG2PVn7= MICROSCOPIC DESCRIPTION h7qflQRmAUHrbBP1WdBsOV (test code = 3371) Zjs4iky7AzpKQagMWdCAij tYWophKehn93nZJ7oR55HH 5rFNRwVbG4VYAtazU1Zki7 GJIcFIYsdIYjQ744j3rko6 tojlIjyPD0cIimKKFzvsaa PtL1VYrbMPWeqbnyVFm9NP jtAYGiiPE2ODTaoAJmZ5Gs UPUuFK0fhlb9JZE5OSwwVC JsEzJ1WLAnqTNvPAEmqCxd EIruq416PUU3ZwNnSXLdqz WwvIyrsC8aVrXlAZGLXHIb t2SiSDMfOGLmkm6= Gross assessment was [facility] performed at ([facility], = 2777) Department of Pathology, [address] [place] [address], Technical component was [facility] performed at ([facility], = 2778) Department of Pathology, [address] [place], [place] [id number], Professional component [facility] was performed at ([facility], code = 2779) Department of Pathology, [address] [place], [place] [id number], [facility] [id number] 14:09:45 Test Item Value Reference Range Interpretation Comments Case Report (test code Surgical Pathology = 104) Report Case: [id number] Authorizing Provider: Bret Brooke MD Collected: 06/12/2022 09:05 AM Ordering Location: [address] Received: 06/14/2022 08:03 AM Service Pathologist: Tam Galvan MD Specimen: Soft Tissue, Other, ASAF-COLONIC NODULE DIAGNOSIS (test code = [id number] 3220) FuZzEwMzNcZnRuYmpcdWMx IHtccnRmMVxlcGljOTYwMl ypnpScNSFagJCyB7Qehqmv ROtoSM1hZQ7bqWkcjWPecO DrMQIfFcSah3scv755fJDu r8jsIFYRwwsusWg0qAmxB5 8mp9D3TgfmF97hbOOjLDT7 GYUlWIUyaJChAMSkUAD1DG SxmCUxU7vrBSZjCL6lbwrg LMpdOEncZHWcuYA1SGDnlA IeN2DsMOZlIDwdDSPavjb3 FbDeEd6trZUhpAtyJNiqJM FdWREaKUpxNZMuKdShC85Q VCBUSVNTVUUsIFBFUklDT0 nFNbLAM4ZJLUNpQOYRN2zG AA6IUCFdthOtVAArVmFORE 7XF3TZA2mRAOiZNTovVUdI NG2AHMRFCFVNEFPBTeiHWF GYX45pDH7WIYMKZwliUt7H OGmaT2ULYEBZP3VSVO0DOH VlpeFaCPTfOn8wZHJZEYnE WI3ZNIANNYBPETCdyu54KY V5HfZph1W1LBN5IRVfVBRa o4buJWBncJKxQeYkRpFdHn YpSinjrHWiHIUdKrSsl9fh q400nBNlr2pzKYYvKlF1cX ScKKSnhPIsW348CTPrFVvh y5hwf3YsRSInmLEkl7Y1ZW FOzqftyEm8xUnvK75hk3W6 BlrrQ5dsLZFeCUXdO1BzCR 3qIXVtDsg0UXL6KPF1ADTu HOZbA3AlNR0pBBSjmFIfOM p2e9rxzFppMXYhSNV9d0ac XClegaAiWR1cdt4nkPg4d8 xjczEgRGVmYXVsdCBQYXJh X2HljPkiCa9gqPx2kUqbVq pfOMW4Teb3DT5gic87xdc4 aBwfXUHufuxgNbN8HWoqWN EgegmeKIo7BXfqEZYgnBK5 DSNvaATfP1BeAHCxRM0wwy d7TBD9YWbcWMNnPzB0BRTo jZErFLNjnBdzLGgfl078NE R1KyWbBX0kL0Yxd4Q2uA6w aXRcZGVmdGFiNzIwXGZvcm 8zwZIqTPkux3KpVNY6faY2 nHIjwTBcVQNdNkT7SHqcUO 1ejs43BKRrBDN2nd7tjXKa uGrmcnXglDAfBHnyV9TgLF Kmn762KUMuH4XbINJef7W6 qrQaEeCrTFDznWQ2ieO9QO YiFG4okbunn4vqOAmcGMgy YUJfsdX2ipS7IWPlqGDgJ3 EyvH6lCTFxLB2gujalw2kn JTH3TCvpTHUkDNG4LgYkUO Pxk3Nsxnj2WhPbh9SqxGFs UMrhW05yi740ZEEzjrHyW1 xwbGFpblxwbGFpblxmMFxm wtZ3DMWeDWqpwrzyJWCdCB xbM5jnMiZvOUDkgWsvLBrf o7IuREJiZNPoKiDogEQoKV JyDot6FIQgxAFwIMLhTaBv Y5pgupukIwYTCDKil9aoQ6 przLCBbKCaZ3OgDFbpnuOu LUlnKRntZTVlWNA9PI51GN fpSOQvqb04 CPT Code(s) (test code c9bwgCZaUJOztFY2MsYkVV = 9338) Lxs0olb1KuwSYpfJQbMLdu wAYvcuQuvw41gZQ1rL09LE 0oADTaGpK1RUTpphI5Pvi6 PRHfYRKdiFUzD531t1ipz4 apdxVhdSW2uRmuXPCvqjde SqH6AQcdHQIispyfPPy6LE hnOBOdoNW4PGAhxFTpI1Pq BQQqAY7iwkj4VJL2MZdiXK MkHvS4NCIkoCHdXCAneCgy TZkkd914QQY3KyFaLTAixj KlmAoejA3pMiMlMAD4ESIp NCwgODgzMTFccGFyfQ== CLINICAL HISTORY (test p5dcvCOtKLKvmQG0WpJhTM code = 3356) Ivt7fnn6BtgOXxwBGhESfr yGThweRyll28mKC8nK49QP 1gVIJdUeH6NMHcnwW5Tdi9 IFJdVKLetRIaV891w4njv1 ugmzXibVI3iMwiZTLhykay GzH8RJoaCUBunzoqGIl0EF suHBSoaLL6DNRnwLBzF2Is NNMsHY4xaxs5EUU8DNhjUF PcYtX7MOOvnNGnGMGnaPwo ZKktb874ZDR9YiSoYPDunv PnaBrfvS2fBiPdFCT6OmI0 Mz2gWH1nVOqiOX58jGIsTE JsvUkgzQ5tpIGcQgXkzyrC JipmCL0cBX7hVTzukDJuqN 5zdWxpbiksIHdobyBwcmVz ZA29HIDmhT8lhKqzOQLgbQ ocju5GnMPVvChtdvT3fUWw XV1gFfCnfXneXXtzhLTrmd ElqjKjFSnurOVuq2zewe3d Y9HADFU5G9xjy6EfTDSfyJ 6idHDeh1AaoCF0J3Hcq63j GiNknKXiMYWyWQJmyXK9bH 3bOYFwZNNnZMM3yH4lTEQv cn0= SPECIMEN SOURCE (test j7pqfSAuDTElpHM7EeEdUP code = 3377) Mme0hkq2SuuCWclPKtBYek sSEdxxBvch80cPX0dG86YW 9mHIXtWiT7PSPdibZ0Ikd4 DNOeQATveLYvI094q9tkv0 bnoxUwnTZ9xExaNDJitrty EiQ3MKajXQNepsxvWDm1FY pgSGYqfVB1TMOuiRXmK6Sa HDCaAU8pvlb0JPA9SDrdDQ NiXwL8WVOwvNObOQYhzXwe NGmdx662AWE1RbTeJMSlti UdgCxnoH9rLbNmNXFNBVJz U46sgFWvu46xyCL0xRQkgZ VccGFyfQ== GROSS DESCRIPTION (test r7qktQAiVAJmdRUPTTLnC5 code = [id number]) zeuuYzFWEiqXHzB1Ytbosl IYyyQA6nPS0rqRaunJQohP EmFY1IMUByVlWdEGVqqQAt dwLbLzXlSIXvsFEcgVQ5AT IlTC7yemvkJQnuYYcfRKZk gaM2MHAweKYtM6PbHAMzEO 2rbcksZDG5VRdtvZ7tklHK YutmTz5meDYrpAorUoRaNn NoYXJzZXQwXGZuaWwgQXJp TYi5lT0EYwgmMIH6HNTQYn hqUCBvXM9Yo9cdRQXlrOZh QSP4PHywmKEuAMDrXDYcIL m9GDKzOXqamNHvRD2ehMdk PdlppIyzr9YqqOMbYKkeEE TnXRHxYEbqSRFnKF3JBmDc SSRpYPCtNHulTGu6ZKi0KA 9WUyAiICAzMDIzOTgwNSIg TCs4UWwpNY3DTKBzXsFcEw EtSXD8ZWX7YkTnXQIiYxGg XGYgQXJpYWwgXFxmbCBcXG 7jrAmckQYntgDGXyAFo5T4 RZPlm2E3TOdvX5TdIJHyZG BhciANClxlcGljTmVzdERv YzEgDQpcbHRycGFyXGxpbj BccmluMCANClxsdHJjaFxm yqHiIOFiM8LgijSyVZCuYP VcYKtvCqMqKCMez7r3oHN7 wXMvbUA0oUNflHyaZbWyCJ 8dpVCrXN1qTTngXSoqiuDd k2TfWU63gICqdjPmscRyKe Idroymy7xtTmNug2O5jHYo ECykURDdRsS2RDEjwERnIi GzX84trTMtMEj3fOBmIOYw uhDhz03nf7WrpJSqQW65YZ W9IANnhiOvoM6zpuenLCAy LjQgeCAxLjMgeCAxIGNtIG Fjlo0yLEoonKboec1foaP6 IHRvIHRhbiBjYWxjaWZpZW Vahb9mdVvtSTNiHPFppLTw uYSmu2BojJVdIVSkAIDvav KyjdGtoITjhBYmlHV9KKJw qT1iTDEmMNUxAZEbnHuhi6 luZyBkZWNhbGNpZmljYXRp w71zFZYjfiHERxtjLHQoDV gCdDBfu4NdYSdwOJIlYMSW TOTuHYDMIGpCB3RBYNDiQC jeoSknlT9gAYZmI00jw5PO b5BeMGVrSQrno5wcuLifz5 VjdGVuZFxwYXJccGFyZFxz kI1tMfSbz5bvpAv9ITrqcl F3PTWusl5BWdstuR7kTzHt b1wwpAd7LQZWMskuraZ2q4 vboSeob2IisWAcIK3TTb5= MICROSCOPIC DESCRIPTION f6uhtLXjYQEikXN9WoGsPC (test code = 3371) Zzs5icx8YngERacQTmSMsc oAGexmPlpn59eWY8yP58VH 7oYFGaJfI5ZMKuryT2Hbx2 MULdUSKamUQvD615f9rym7 ubouFegLE5mBccEARarwva TdT3JYfxBZXotsbvPRu0PI mpKGAuvDH4SAApbUIeD9Mp JCKqDF9fhlc5LYV9AOsdSK ZhXhX4SYVtvKDsYXQfpHva MStao904VQJ4AcFaYASllf NveHjrtL9eHpPzNZLTMNNi x5NuSTIoAJLjdm2= Gross assessment was [facility] performed at ([facility], = 2777) Department of Pathology, [address] [place] [address], Technical component was [facility] performed at ([facility], = 2878) Department of Pathology, [address] [place] [address], Professional component [facility] was performed at ([facility], code = 2779) Department of Pathology, [address] [place] [address], [facility] [id number] 14:09:45 Test Item Value Reference Range Interpretation Comments Case Report (test code Surgical Pathology = 104) Report Case: [id number] Authorizing Provider: Bret Brooek MD Collected: 06/12/2022 09:05 AM Ordering Location: [address] Received: 06/14/2022 08:03 AM Service Pathologist: Tam Galvan MD Specimen: Soft Tissue, Other, ASAF-COLONIC NODULE DIAGNOSIS (test code = [id number] 3220) FuZzEwMzNcZnRuYmpcdWMx IHtccnRmMVxlcGljOTYwMl zrbxZaWRFcpGWaW7Fsmqzs VAedON6fMZ6skFqscTGqxV GcCXVvLlQqj6fbw969sYGt t4ruDNPNgimjlHb1lSzgL6 7zh9A8InmcO29dmGOdMLM9 DJCgNPQbzXSfLABuHWE1LM BkbGKdP5slOTOyHA5dgkdn WEhuHYgjXBSuuBT7RIQkmL EhE1DoSHEmLUnnFPUadpw9 WePeIr1wmYQhsJifHHldNI VtTYOyIHweATKsUkLlN91K VCBUSVNTVUUsIFBFUklDT0 aXBsWDW1KNERQxAYQPV8wL CZ0KGQSqdlHnKXQxLjNKVQ 0WF4TUQ2sVBYkIHPvzIHgB US7TYJMOIEHQSDMPYyvLWB XVW11eDX6CRRIWAmwzIw7R NTuvL7XFBRODC3WKVV3OTG OhooFvTSMiWx1zQEUYRVwT CA6IWMZFARLXHDXbiy72ZJ J6MyBak3Z7GUF6LSLoKHXz v8vfDWMsuUVxTtYsCyPvYf PkOvxzbMDrGMBkGsOdg8ad w232sGYrh8ucOEGbPhE4nV UxMPWaaXTfM935EQKdYUve m1ntx7OhIWJeuNYkw4Q1XU WUphaejYv0wIrdO21ew4P6 KtoxB9iwCBOhYGOkI1AyLX 9oPNCzSjr7MIE3KXN6CGMo HBKzK5MxXU4vFQVhwYXdHC b1a3ylqPfwVJAxVYR7d6eo QLfylkHaKQ6zij3lhOz3p8 xjczEgRGVmYXVsdCBQYXJh V1MtyPfnKr4maJh7yGwyKi gaMNK4Yjh4DQ6qtf51eda6 nGmsJRRktxabEoM9WMujEL IhvnfzWJh7MXkpCYEapRD7 YGTxyZYjC5OoCGJaJM9lzz n1EZG3RKhdTYKhNwF8NXXe vRHbQYFxrRudOZhbj804JW X0OpHlCG7uC3Rcq7H7fU2p aXRcZGVmdGFiNzIwXGZvcm 0pfMVgEUthq5OuKHQ7deB2 zJUqhMDwCZGdYrF6FQrpFB 9ros57IFCqMCV6wj1ytWQo kYhqjbJczRRgCQtkC2NsBT Ign889UVTmL8SkDBUhu9F1 lqMnWmSmFRZjaPM7zdG7WU BsGX8qcnvdf4ctCWpaJQwr JMEozfP0klY3AQPplKYcA2 PvgF5qHBAgKJ1anbntq4mk KKY4VDadICGxPQB6CyUhCC Wsi5Sowce6OdXhk3RcwQNg RBcjJ65bo466TDDaviJbL0 xwbGFpblxwbGFpblxmMFxm pwR9XEXpEWpnlnhhARKrOW jmT7nhYiJmQBUbdXioTAdb y7DiQGUrKLMfBkXxtKOjMK RoSgs6ZUNooEXaNGGvFvJl Z3xzmiqrCwXKWJInz5iqR9 ybfLJCcBNjA2WgPKnldpSs UFpsASqhVPXxIPO2VD15DQ xbQJSijp22 CPT Code(s) (test code d7crtWDmYFJbbFY0CbClKI = 8797) Uvj9qur3EwwQHrkMPwXVad bUUxscPshf15xUI5jC29UB 8nBQByEeK9TZCtbuY4Ruq4 DHEkGXFbpHIuT806p1dbh8 wqxrOxuYT0vNyxFBVcbrhi PeB1UJzyHSGnvaqwNVa2FQ iyJYQtfTA5MBGppPLlE8Iw IHCaZY8rlyj3OWS8AEmcUT GoBmQ1MXWlqFRrQABeiVmh RHwch208RNN0FtSdEPUdhv YpaVcwnQ2xQxElYYY6LYLx NCwgODgzMTFccGFyfQ== CLINICAL HISTORY (test m0yqyHVrAXPseKJ0JbPsUP code = 3356) Mbk0swn0ReeDGatDQuLRwi pDXftmKivv99fVC7zP40AT 7hJGOlMsF6KUXqxpP6Oog6 CHZdJGIomABsD418k5uth3 smetXiaDD4vAhfFQGbuukq DjN4TCfbJHYfybmvLHb6ZN liGLWlzOU2FSHuqYIjW8Tw HPDzLL5hfrc1STQ4OXwfFS QkGpG5DDXggYDpKVJgkTlp DOxbb460RHQ6TqFlYXDzwt ExdNfxdL6mNyCjIAV2MtP1 Gl3nYT5fAAdhHX88eRRmRE IuiGlnnH9hkYQkWaMqqooM FbimVR4pAT9nSKehbVRvbT 5zdWxpbiksIHdobyBwcmVz DG22JKMpiR3zpWvgQFCfuT ckut4RjZFZiPdmswK7mDMj DQ8fGyKgiDjsDDnsiWXzle ThugRaIAlkiUNjg4aewb0d Q3WXRGD1S3oet8DgMIHskG 6vkKUxw7FssTF8T9Xwn95u HyEmlHXsZEZqUEJauTA4wT 3jUTPtDXNoSWC8mC5gGSWc cn0= SPECIMEN SOURCE (test v1sxjCUwWRPrqXJ6ZqHwXC code = 3377) Wpb2sch4TlrZFowCEsUSfk kWKpbtWhlt56rDJ2rB15AT 8hMBGjReD6EOCgzsC4Dal6 GALjTJSsqVSeH216n4neg9 xkpyHfkQJ8cTsbBLSigsdd KkQ6HPzbWGLvldyxXGg4IV syEPUjjGG7FHFwyIBkA6Dm TVXyTG1iahx5MBL6NKvlTF QyXlD2PJWdrUNnKVMiiBbu LJhdy078AFU2LaYhDHBozf NkdAtlvV2wLhUkRDTTVXDy L90vjIXwl63jiND8yOVinD VccGFyfQ== GROSS DESCRIPTION (test q9ntzRSdAZRuoVQCHJGuA6 code = [id number]) jbxtWfKVHkoLTzL4Aaxkdd EGjcKT3oMW2ipYeoxHLahF BzVB5HDESuCsDpYMFfcFFm ctGnFjKrQNNrmKRmcGJ1IW ZrHU0twxluDOdfFKhtYBNl wrY1MIYdyMLqC7JgUWAcSD 4ihhgoJNH7RUfpfR9mmdWQ RiniQb2giRObySrfUvQzFz NoYXJzZXQwXGZuaWwgQXJp BTm8eL8MDzcyOQB1HRGENo omXUJsAX5Tx8saZMEejIEw ZTG2XKqrkRKeFAKjJVYrIP w9OJKgIWmvmWDzQP0emIci DvkdtHzjs3OdxRDvPQxxEF WdXHTuDDscMWRsOK2VGoEx MOBnGWFzAWwuPAx0ZNp6GT 9WUyAiICAzMDIzOTgwNSIg MWm5SHkxES4TCKRpPkWvSr XeEHX6FYP0FjGrPXZzGfZy XGYgQXJpYWwgXFxmbCBcXG 2mkSrtdDJptwCRYiQPx6X0 ORPib7N0NIwuE9AvOCMbTJ BhciANClxlcGljTmVzdERv YzEgDQpcbHRycGFyXGxpbj BccmluMCANClxsdHJjaFxm erViZMNqV8LftvAgTOLqAA LlAQnaAaJpDHTqb9n4aXG2 uVCgtNJ5qMSnnYwgTfRgTL 9flRHfCF2fYBebSZllncEq v1LcRV36iWKoklEjiuTrYj Euwuhxd1udXjBqd3G0eHAs ZFutMXBvPrD3EEBveLBrTm HcN37dvBXgLFp8tIJwSTHe uwZbm53et9SvgYLfBP92UI O1MNMuljMakN1ufwxoIDNz LjQgeCAxLjMgeCAxIGNtIG Pwib1bXCpooTlkaa6wxtN3 IHRvIHRhbiBjYWxjaWZpZW Whme4jbPuyHMMaNDWslQAt xXIsb3LglBGeNKPeBDAkux GpetLdaNKcyJPsjUL1ZSJj uG4aENHnLHKmZKOgyQyjo3 luZyBkZWNhbGNpZmljYXRp s92iUVMgmgLZQvwaQEGbMA uUwJLvu6OoRMvzGHSvLQTJ MUZrRZXMEUkIR2LQBSJbAT hmsGovxD7oCMYcV76db8EL j7HyXYHmHWpny1glxNusd2 VjdGVuZFxwYXJccGFyZFxz gQ1hSnLid3yizDa7HDmriw K4PTPrps0WRqxjmI2pXzVt l9qfyXf7TKYZWqrhhyP4f4 lctZjnl9FasUWyII0EYc0= MICROSCOPIC DESCRIPTION k9mmbMZdTYSumAU8NiOlIS (test code = 3371) Kgi5rhz2JlxKSeySEwSJvz wDJwebNgvu16lOX4rB35VU 1wJJEkRtV5HSCqtoO0Cnw6 ZUHrRNSkkSCoJ256n8cyf4 ijxaAngVZ6fBvjRSUuqril QeP2KVchIYRqhotzNOl5GO baUYLrlYI9DFNacWKrE7Gg YZOjZL5qqii9GNA5BPylTH MbVoI4FMFyqESeUWZtdLrs TYohs098ZIU7NeGiZAUejq KxrErshK3lXhXjLFDBIVKp x9HvUMEgEJJfte7= Gross assessment was [facility] performed at ([facility], = 3067) Department of Pathology, [address] [place] [address], Technical component was [facility] performed at ([facility], = 5986) Department of Pathology, [address] [place] [address] 6[address], Professional component [facility] was performed at ([facility], code = 5168) Department of Pathology, [address] [place] [address], [facility] [id number] 14:09:45Surgical Pathology Report Case: [id number] Authorizing Provider: Bret Brooke MD Collected: 06/12/2022 09:05 AM Ordering Location: [address] Received: 06/14/2022 08:03 AM Service Pathologist: Tam Galvan MD Specimen: Soft Tissue, Other, ASAF-COLONIC NODULE SOFT TISSUE, PERICOLIC NODULE, EXCISION- FAT NECROSIS WITH EXTENSIVE CALCIFICATION AND VERY FOCAL OSSIFICATION- NO MALIGNANCY SEEN Signing Pathologist Direct Phone Line: [phone] signed by Tam Galvan MD on 06/18/2022 at 2:09 [id number], [id number] y.o. male with a history of HTN, DM (no home insulin), who presented to the [facility] with abdominal pain and distension. OSH suggests colonic obstruction from mass abutting the rectum.Pericolic soft tissueA. Soft Tissue, Other.Received fresh labeled with the patient's name, medical record number and "pericolic nodule" is a 3 x 2 x 1.1 cm irregular portion of mesentery containing a 1.4 x 1.3 x 1 cm firm, yellow-conn to rodriguez calcified nodule that is trisected and entirely submitted in A1-A2, following decalcification.LUISA Olsen, SHUN (ASCP)cmPerformed.[facility], Department of Pathology, [address] [place] [address], [facility], Department of [facility]ology, [address] [place] [address], [facility], Department of Pathology, [address] [place] [address], BMUD-GLUCOSE [id number] 11:58:33 Test Item Value Reference Range Interpretation Comments POC-GLUCOSE METER 290 mg/dL 70-110 H : TESTED A T [facility] 6720 (BEAKER) (test code = [facility], 1538) 01769: Rn Neonatal Icu/Techni franklin ID = [id number] for Da vis, Deleon POCT-GLUCOSE [id number] 07:57:21 Test Item Value Reference Range Interpretation Comments POC-GLUCOSE METER 211 mg/dL 70-110 H : TESTED A T [facility] 6720 (BEAKER) (test code = [facility], 1538) 45392: Rn Neonatal Icu/Techni franklin ID = [id number] for Da vis, Deleon POCT-GLUCOSE [id number] 06:20:21 Test Item Value Reference Range Interpretation Comments POC-GLUCOSE METER 228 mg/dL 70-110 H : TESTED A T [facility] 6720 (BEAKER) (test code = [facility], 1538) 48382: Rn Neonatal Icu/Techni franklin ID = [id number] for Yue Gonzales COMPREHENSIVE METABOLIC [id number] 06:17:24 Test Item Value Reference Range Interpretation Comments TOTAL PROTEIN 5.3 gm/dL 6.0-8.3 L (BEAKER) (test code = 770) ALBUMIN (BEAKER) 2.2 g/dL 3.5-5.0 L (test code = 1145) ALKALINE 77 U/L 40-150 PHOSPHATASE (BEAKER) (test code = 346) BILIRUBIN TOTAL 0.3 mg/dL 0.2-1.2 (BEAKER) (test code = 377) SODIUM (BEAKER) 144 meq/L 136-145 (test code = 381) POTASSIUM (BEAKER) 2.9 meq/L 3.5-5.1 L (test code = 379) CHLORIDE (BEAKER) 116 meq/L 98-107 H (test code = 382) CO2 (BEAKER) (test 20 meq/L 22-29 L code = 355) BLOOD UREA 23 mg/dL 7-21 H NITROGEN (BEAKER) (test code = 354) CREATININE 1.20 mg/dL 0.57-1.25 (BEAKER) (test code = 358) GLUCOSE RANDOM 217 mg/dL 70-105 H (BEAKER) (test code = 652) CALCIUM (BEAKER) 7.8 mg/dL 8.4-10.2 L (test code = 697) AST (SGOT) 21 U/L 5-34 (BEAKER) (test code = 353) ALT (SGPT) 10 U/L 6-55 (BEAKER) (test code = 347) EGFR (BEAKER) 69 Interpretatio n of eGFR (test code = 1092) mL/min/1.[address] age Description sq m Result G1 Mary l or high >=90 G2 Mildly decreased 60-89 G3a Mildl y to moderately 45-5 9 G3b Moderately to s everely 30-44 G4 Severl y decreased 15-29 G5 Kidney failure <15Reported eGF R is based on the CKD-EPI 2020 equation that d oes not use a race coefficientEsti mated GFR is not as accur ate as Creatinine Mary echo in predicting glom erular filtration rate . Estimated GFR is not appl icable for dialysis patien ts Rn Neonatal Icu ID - AUTUMN [id number] 06:12:32 Test Item Value Reference Range Interpretation Comments MAGNESIUM (BEAKER) (test code = 1.5 mg/dL 1.6-2.6 L 627) Rn Neonatal Icu ID - AUTUMN [id number] 06:12:32 Test Item Value Reference Range Interpretation Comments PHOSPHORUS (BEAKER) (test code = 2.8 mg/dL 2.3-4.7 604) Rn Neonatal Icu ID - AUTUMN LCBC W/PLT COUNT & AUTO [id number] 05:17:48 Test Item Value Reference Range Interpretation Comments WHITE BLOOD CELL COUNT (BEAKER) 8.4 K/ L 3.5-10.5 (test code = 775) RED BLOOD CELL COUNT (BEAKER) 3.82 M/ L 4.63-6.08 L (test code = 761) HEMOGLOBIN (BEAKER) (test code = 8.4 GM/DL 13.7-17.5 L 410) HEMATOCRIT (BEAKER) (test code = 27.6 % 40.1-51.0 L 411) MEAN CORPUSCULAR VOLUME (BEAKER) 72.3 fL 79.0-92.2 L (test code = 753) MEAN CORPUSCULAR HEMOGLOBIN 22.0 pg 25.7-32.2 L (BEAKER) (test code = 751) MEAN CORPUSCULAR HEMOGLOBIN CONC 30.4 GM/DL 32.3-36.5 L (BEAKER) (test code = 752) RED CELL DISTRIBUTION WIDTH 15.6 % 11.6-14.4 H (BEAKER) (test code = 412) PLATELET COUNT (BEAKER) (test 289 K/CU MM 150-450 code = 756) MEAN PLATELET VOLUME (BEAKER) 10.0 fL 9.4-12.4 (test code = 754) NUCLEATED RED BLOOD CELLS 0 /100 WBC 0-0 (BEAKER) (test code = 413) NEUTROPHILS RELATIVE PERCENT 71 % (BEAKER) (test code = 429) LYMPHOCYTES RELATIVE PERCENT 19 % (BEAKER) (test code = 430) MONOCYTES RELATIVE PERCENT 6 % (BEAKER) (test code = 431) EOSINOPHILS RELATIVE PERCENT 3 % (BEAKER) (test code = 432) BASOPHILS RELATIVE PERCENT 0 % (BEAKER) (test code = 437) NEUTROPHILS ABSOLUTE COUNT 5.92 K/ L 1.78-5.38 H (BEAKER) (test code = 670) LYMPHOCYTES ABSOLUTE COUNT 1.59 K/ L 1.32-3.57 (BEAKER) (test code = 414) MONOCYTES ABSOLUTE COUNT (BEAKER) 0.54 K/ L 0.30-0.82 (test code = 415) EOSINOPHILS ABSOLUTE COUNT 0.26 K/ L 0.04-0.54 (BEAKER) (test code = 416) BASOPHILS ABSOLUTE COUNT (BEAKER) 0.02 K/ L 0.01-0.08 (test code = 417) IMMATURE GRANULOCYTES-RELATIVE 1 % 0-1 PERCENT (BEAKER) (test code = 2801) POCT-GLUCOSE [id number] 23:38:14 Test Item Value Reference Range Interpretation Comments POC-GLUCOSE METER 289 mg/dL 70-110 H : TESTED A T [facility] 6720 (BEAKER) (test code = [facility] [place], 1538) 21238: Rn Neonatal Icu/Techni franklin ID = [id number] for Yue Gonzales POCT-GLUCOSE [id number] 12:22:22 Test Item Value Reference Range Interpretation Comments POC-GLUCOSE METER 329 mg/dL 70-110 H : TESTED A T [facility] 6720 (BEAKER) (test code = KIKI Ryna [facility], 1538) 88513: Rn Neonatal Icu/Techni franklin ID = [id number] for JASPREET MUÑOZ COMPREHENSIVE METABOLIC [id number] 09:22:36 Test Item Value Reference Range Interpretation Comments TOTAL PROTEIN 5.3 gm/dL 6.0-8.3 L (BEAKER) (test code = 770) ALBUMIN (BEAKER) 2.2 g/dL 3.5-5.0 L (test code = 1145) ALKALINE 66 U/L 40-150 PHOSPHATASE (BEAKER) (test code = 346) BILIRUBIN TOTAL 0.4 mg/dL 0.2-1.2 (BEAKER) (test code = 377) SODIUM (BEAKER) 142 meq/L 136-145 (test code = 381) POTASSIUM (BEAKER) 3.7 meq/L 3.5-5.1 (test code = 379) CHLORIDE (BEAKER) 117 meq/L 98-107 H (test code = 382) CO2 (BEAKER) (test 20 meq/L 22-29 L code = 355) BLOOD UREA 28 mg/dL 7-21 H NITROGEN (BEAKER) (test code = 354) CREATININE 1.12 mg/dL 0.57-1.25 (BEAKER) (test code = 358) GLUCOSE RANDOM 224 mg/dL 70-105 H (BEAKER) (test code = 652) CALCIUM (BEAKER) 7.9 mg/dL 8.4-10.2 L (test code = 697) AST (SGOT) 16 U/L 5-34 (BEAKER) (test code = 353) ALT (SGPT) 9 U/L 6-55 (BEAKER) (test code = 347) EGFR (BEAKER) 75 Interpretatio n of eGFR (test code = 1092) mL/min/1.[address] age Description sq m Result G1 Mary l or high >=90 G2 Mildly decreased 60-89 G3a Mildl y to moderately 45-5 9 G3b Moderately to s everely 30-44 G4 Severl y decreased 15-29 G5 Kidney failure <15Reported eGF R is based on the CKD-EPI 202 equation that d oes not use a race coefficientEsti mated GFR is not as accur ate as Creatinine Mary dodge in predicting glom erular filtration rate . Estimated GFR is not appl icable for dialysis patien ts Rn Neonatal Icu ID - MANASA [id number] 08:25:56 Test Item Value Reference Range Interpretation Comments MAGNESIUM (BEAKER) (test code = 1.5 mg/dL 1.6-2.6 L 627) Rn Neonatal Icu ID - MANASA [id number] 08:25:56 Test Item Value Reference Range Interpretation Comments PHOSPHORUS (BEAKER) (test code = 2.0 mg/dL 2.3-4.7 L 604) Rn Neonatal Icu ID - MANASA MCBC W/PLT COUNT & AUTO [id number] 07:01:43 Test Item Value Reference Range Interpretation Comments WHITE BLOOD CELL COUNT (BEAKER) 8.7 K/ L 3.5-10.5 (test code = 775) RED BLOOD CELL COUNT (BEAKER) 3.95 M/ L 4.63-6.08 L (test code = 761) HEMOGLOBIN (BEAKER) (test code = 8.8 GM/DL 13.7-17.5 L 410) HEMATOCRIT (BEAKER) (test code = 28.9 % 40.1-51.0 L 411) MEAN CORPUSCULAR VOLUME (BEAKER) 73.2 fL 79.0-92.2 L (test code = 753) MEAN CORPUSCULAR HEMOGLOBIN 22.3 pg 25.7-32.2 L (BEAKER) (test code = 751) MEAN CORPUSCULAR HEMOGLOBIN CONC 30.4 GM/DL 32.3-36.5 L (BEAKER) (test code = 752) RED CELL DISTRIBUTION WIDTH 15.5 % 11.6-14.4 H (BEAKER) (test code = 412) PLATELET COUNT (BEAKER) (test 294 K/CU MM 150-450 code = 756) MEAN PLATELET VOLUME (BEAKER) 9.7 fL 9.4-12.4 (test code = 754) NUCLEATED RED BLOOD CELLS 0 /100 WBC 0-0 (BEAKER) (test code = 413) NEUTROPHILS RELATIVE PERCENT 73 % (BEAKER) (test code = 429) LYMPHOCYTES RELATIVE PERCENT 18 % (BEAKER) (test code = 430) MONOCYTES RELATIVE PERCENT 6 % (BEAKER) (test code = 431) EOSINOPHILS RELATIVE PERCENT 3 % (BEAKER) (test code = 432) BASOPHILS RELATIVE PERCENT 0 % (BEAKER) (test code = 437) NEUTROPHILS ABSOLUTE COUNT 6.30 K/ L 1.78-5.38 H (BEAKER) (test code = 670) LYMPHOCYTES ABSOLUTE COUNT 1.54 K/ L 1.32-3.57 (BEAKER) (test code = 414) MONOCYTES ABSOLUTE COUNT (BEAKER) 0.54 K/ L 0.30-0.82 (test code = 415) EOSINOPHILS ABSOLUTE COUNT 0.23 K/ L 0.04-0.54 (BEAKER) (test code = 416) BASOPHILS ABSOLUTE COUNT (BEAKER) 0.03 K/ L 0.01-0.08 (test code = 417) IMMATURE GRANULOCYTES-RELATIVE 0 % 0-1 PERCENT (BEAKER) (test code = 2801) POCT-GLUCOSE [id number] 06:28:37 Test Item Value Reference Range Interpretation Comments POC-GLUCOSE METER 202 mg/dL 70-110 H : TESTED A T [facility] 6720 (BEAKER) (test code = [facility], 1538) 39072: Rn Neonatal Icu/Techni franklin ID = [id number] for VONDA WILL POCT-GLUCOSE [id number] 00:27:45 Test Item Value Reference Range Interpretation Comments POC-GLUCOSE METER 194 mg/dL 70-110 H : TESTED A T [facility] 6720 (BEAKER) (test code = [facility], 1538) 40971: Rn Neonatal Icu/Techni franklin ID = [id number] for VONDA WILL Prepare Leuko-Red [id number] 23:54:00 Test Item Value Reference Range Interpretation Comments CROSSMATCH (test code = 2264) COMPATIBLE Unit ABO (test code = O Pos 3189056) UNIT NUMBER (test code = [id number] 934-0) Status (test code = 3979860) TX_TIMEINCHART Blood Bank Product (test code RED BLOOD CELLS = 2263) PRODUCT CODE (test code = B0404Y67 933-2) [facility] [id number] 23:54:00 Test Item Value Reference Range Interpretation Comments CROSSMATCH (test code = 2264) COMPATIBLE Unit ABO (test code = O Pos 7803354) UNIT NUMBER (test code = [id number] 934-0) Status (test code = 0046043) TX_TIMEINCHART Blood Bank Product (test code RED BLOOD CELLS = 2263) PRODUCT CODE (test code = U3442W36 933-2) [facility] [id number] 23:54:00 Test Item Value Reference Range Interpretation Comments CROSSMATCH (test code = 2264) COMPATIBLE Unit ABO (test code = O Pos 2711423) UNIT NUMBER (test code = [id number] 934-0) Status (test code = 9951275) TX_TIMEINCHART Blood Bank Product (test code RED BLOOD CELLS = 2263) PRODUCT CODE (test code = M4144X51 933-2) [facility]Red [id number] 23:54:00 Test Item Value Reference Range Interpretation Comments CROSSMATCH (test code = 2264) COMPATIBLE Unit ABO (test code = O Pos 9288184) UNIT NUMBER (test code = [id number] 934-0) Status (test code = 7595067) TX_TIMEINCHART Blood Bank Product (test code RED BLOOD CELLS = 2263) PRODUCT CODE (test code = C1662W80 933-2) [facility] [id number] 23:54:00 Test Item Value Reference Range Interpretation Comments CROSSMATCH (test code = 2264) COMPATIBLE Unit ABO (test code = O Pos 7062550) UNIT NUMBER (test code = [id number] 934-0) Status (test code = 6025584) TX_TIMEINCHART Blood Bank Product (test code RED BLOOD CELLS = 2263) PRODUCT CODE (test code = S4556Z56 933-2) [facility] [id number] 23:54:00 Test Item Value Reference Range Interpretation Comments CROSSMATCH (test code = 2264) COMPATIBLE Unit ABO (test code = O Pos 7476638) UNIT NUMBER (test code = [id number] 934-0) Status (test code = 9888856) TX_TIMEINCHART Blood Bank Product (test code RED BLOOD CELLS = 2263) PRODUCT CODE (test code = P3985U97 933-2) [facility] [id number] 23:54:00 Test Item Value Reference Range Interpretation Comments CROSSMATCH (test code = 2264) COMPATIBLE Unit ABO (test code = O Pos 5007042) UNIT NUMBER (test code = [id number] 934-0) Status (test code = 2536462) TX_TIMEINCHART Blood Bank Product (test code RED BLOOD CELLS = 2263) PRODUCT CODE (test code = V5523W69 933-2) [facility] [id number] 23:54:00 Test Item Value Reference Range Interpretation Comments CROSSMATCH (test code = 2264) COMPATIBLE Unit ABO (test code = O Pos 7843776) UNIT NUMBER (test code = [id number] 934-0) Status (test code = 1502911) TX_TIMEINCHART Blood Bank Product (test code RED BLOOD CELLS = 2263) PRODUCT CODE (test code = N0912E58 933-2) [facility] [id number] 23:54:00 Test Item Value Reference Range Interpretation Comments CROSSMATCH (test code = 2264) COMPATIBLE Unit ABO (test code = O Pos 2867554) UNIT NUMBER (test code = [id number] 934-0) Status (test code = 3223941) TX_TIMEINCHART Blood Bank Product (test code RED BLOOD CELLS = 2263) PRODUCT CODE (test code = V0264J00 933-2) [facility] [id number] 22:55:17 Test Item Value Reference Range Interpretation Comments POC-GLUCOSE METER 203 mg/dL 70-110 H : TESTED A T [facility] 6720 (BEAKER) (test code = [facility] [place], 1538) 32695: Rn Neonatal Icu/Techni franklin ID = [id number] for VONDA WILL POCT-GLUCOSE [id number] 19:00:44 Test Item Value Reference Range Interpretation Comments POC-GLUCOSE METER 248 mg/dL 70-110 H : TESTED A T [facility] 6720 (BELELIA) (test code = KIKI Ryan [facility], 1538) 01510: Rn Neonatal Icu/Techni franklin ID = [id number] for Adrienne Fay RAD, ABDOMEN, 2 [id number] 14:26:00Reason for exam:->Colon ileusShould this be performed at the bedside?->Yes [facility] 1960 Sex: MFINAL REPORT ABDOMEN 2 VIEWS CLINICAL INDICATION: Colon ileus COMPARISON: 06/14/2022 TECHNIQUE: supine and standing/lateral radiographs of the abdomen. FINDINGS: The bowel gas pattern consists of dilated small bowel loops and air- filled large bowel loops. No free air is identified. Midline laparotomy changes are present. The Sandoval catheter tip overlies the pelvis in the region of the urinary bladder. Nonspecific tubing overlies the left bolus. Mild to moderate spondylosis and facetarthropathy are present within the spine. IMPRESSION: Dilated small bowel loops with air-filled large bowel loops, which may represent ileus or partial small bowel obstruction. Signed: Kerry Roth MDReport Verified Date/Time: 06/16/2022 14:26:33 Reading Location: [address] Reading Room RAD, CHEST, 1 VIEW, NON [id number] 12:39:00Reason for exam:->PICC LINE PLACEMENTShould this be performed at the bedside?->Yes [facility] 1960 Sex: MFINAL REPORT INDICATION: PICC LINE PLACEMENT COMPARISON: None TECHNIQUE: Single frontal view of the chest. FINDINGS: Lines, tubes, and devices: Right PICC tip overlies the superior vena cava. Lungs and pleura: Small left pleural effusion. Hazy airspace opacities in the lower lungs bilaterally, which may represent atelectasis, pneumonia, or pulmonary edema. Left retrocardiac opacity, representing singly or in combination pneumonia, atelectasis, or pleural effusion. No pneumothorax.Heart and mediastinum: Normal heart size. Unremarkable mediastinal contours.Osseous structures: No acute abnormality. Mild spondylosis and facet arthropathy are present within the spine. Other: None. IMPRESSION: Right PICC tip overlies the superior vena cava. Signed: Kerry Roth [facility] Verified Date/Time: 06/16/2022 12:39:15 Reading Location: [address] Reading Room POCT-GLUCOSE [id number] 12:04:19 Test Item Value Reference Range Interpretation Comments POC-GLUCOSE METER 136 mg/dL 70-110 H : TESTED A T [facility] 6720 (BEAKER) (test code = [facility] [place], 1538) 76703: Rn Neonatal Icu/Techni franklin ID = [id number] for Adrienne Fay Anaerobic [id number] 09:28:00 Test Item Value Reference Range Interpretation Comments Result (test code = No anaerobes isolated 6463-4) [facility]2022-09-28 09:28:00 Test Item Value Reference Range Interpretation Comments Result (test code = No anaerobes isolated 6463-4) [facility]2022-09-28 09:28:00 Test Item Value Reference Range Interpretation Comments Result (test code = No anaerobes isolated 6463-4) [facility]2022-09-28 09:28:00 Test Item Value Reference Range Interpretation Comments Result (test code = No anaerobes isolated 6463-4) [facility]2022-09-28 09:28:00 Test Item Value Reference Range Interpretation Comments Result (test code = No anaerobes isolated 6463-4) [facility]2022-09-28 09:28:00 Test Item Value Reference Range Interpretation Comments Result (test code = No anaerobes isolated 6463-4) [facility]2022-09-28 09:28:00 Test Item Value Reference Range Interpretation Comments Result (test code = No anaerobes isolated 6463-4) [facility]2022-09-28 09:28:00 Test Item Value Reference Range Interpretation Comments Result (test code = No anaerobes isolated 6463-4) [facility]2022-09-28 09:28:00 Test Item Value Reference Range Interpretation Comments Result (test code = No anaerobes isolated 6463-4) [facility]2022-09-28 09:28:00 Test Item Value Reference Range Interpretation Comments Result (test code = No anaerobes isolated 6463-4) [facility]2022-09-28 09:28:00 Test Item Value Reference Range Interpretation Comments Result (test code = No anaerobes isolated 6463-4) [facility]2022-09-28 09:28:00 Test Item Value Reference Range Interpretation Comments Result (test code = No anaerobes isolated 6463-4) [facility] [id number] 09:28:00 Test Item Value Reference Range Interpretation Comments Result (test code = No anaerobes isolated 6463-4) [facility] [id number] 09:28:00 Test Item Value Reference Range Interpretation Comments Result (test code = No anaerobes isolated 6463-4) [facility] [id number] 09:28:00 Test Item Value Reference Range Interpretation Comments Result (test code = No anaerobes isolated 6463-4) [facility] [id number] 09:28:00 Test Item Value Reference Range Interpretation Comments Result (test code = No anaerobes isolated 6463-4) [facility] [id number] 09:28:00 Test Item Value Reference Range Interpretation Comments Result (test code = No anaerobes isolated 6463-4) [facility] [id number] 09:28:00 Test Item Value Reference Range Interpretation Comments Result (test code = No anaerobes isolated 6463-4) [facility] [id number] 09:28:00 Test Item Value Reference Range Interpretation Comments Result (test code = No anaerobes isolated 6463-4) [facility] [id number] 09:28:00 Test Item Value Reference Range Interpretation Comments CULTURE (BEAKER) (test No anaerobes isolated code = 1095) POCT-GLUCOSE [id number] 06:09:48 Test Item Value Reference Range Interpretation Comments POC-GLUCOSE METER 112 mg/dL 70-110 H : TESTED A T BSC 6720 (BEAKER) (test code = [place], 1538) [address]: Rn Neonatal Icu/Techni franklin ID = [id number] for JOSHUA OLIVERA COMPREHENSIVE METABOLIC [id number] 05:47:45 Test Item Value Reference Range Interpretation Comments TOTAL PROTEIN 5.5 gm/dL 6.0-8.3 L (BEAKER) (test code = 770) ALBUMIN (BEAKER) 2.3 g/dL 3.5-5.0 L (test code = 1145) ALKALINE 68 U/L 40-150 PHOSPHATASE (BEAKER) (test code = 346) BILIRUBIN TOTAL 0.5 mg/dL 0.2-1.2 (BEAKER) (test code = 377) SODIUM (BEAKER) 145 meq/L 136-145 (test code = 381) POTASSIUM (BEAKER) 4.2 meq/L 3.5-5.1 (test code = 379) CHLORIDE (BEAKER) 118 meq/L 98-107 H (test code = 382) CO2 (BEAKER) (test 20 meq/L 22-29 L code = 355) BLOOD UREA 36 mg/dL 7-21 H NITROGEN (BEAKER) (test code = 354) CREATININE 1.45 mg/dL 0.57-1.25 H (BEAKER) (test code = 358) GLUCOSE RANDOM 102 mg/dL 70-105 (BEAKER) (test code = 652) CALCIUM (BEAKER) 7.8 mg/dL 8.4-10.2 L (test code = 697) AST (SGOT) 23 U/L 5-34 (BEAKER) (test code = 353) ALT (SGPT) 10 U/L 6-55 (BEAKER) (test code = 347) EGFR (BEAKER) 55 Interpretatio n of eGFR (test code = 1092) mL/min/1.[address] age Description sq m Result G1 Mary l or high >=90 G2 Mildly decreased 60-89 G3a Mildl y to moderately 45-5 9 G3b Moderately to s everely 30-44 G4 Sever ly decreased 15-29 G5 Kidney failure <15Repo rted eGFR is based on the CKD-EPI 2020 equation t hat does not use a race coefficientEsti mated GFR is not as accur ate as Creatinine Mary dodge in predicting glom erular filtration rate . Estimated GFR is not appl icable for dialysis patien ts Rn Neonatal Icu ID - KALANI [id number] 05:36:16 Test Item Value Reference Range Interpretation Comments TRIGLYCERIDES (BEAKER) (test code = 163 mg/dL 540) TRIGLYCERIDE REFERENCE RANGELow Risk <150Borderline Risk 150-199High Risk 200-499Very High Risk >=500Operator ID - KALANI [id number] 05:36:15 Test Item Value Reference Range Interpretation Comments MAGNESIUM (BEAKER) (test code = 2.0 mg/dL 1.6-2.6 627) Rn Neonatal Icu ID - KALANI [id number] 05:36:15 Test Item Value Reference Range Interpretation Comments PHOSPHORUS (BEAKER) (test code = 2.6 mg/dL 2.3-4.7 604) Rn Neonatal Icu ID Scott URIARTE WCBC W/PLT COUNT & AUTO [id number] 05:09:23 Test Item Value Reference Range Interpretation Comments WHITE BLOOD CELL COUNT (BEAKER) 8.8 K/ L 3.5-10.5 (test code = 775) RED BLOOD CELL COUNT (BEAKER) 3.52 M/ L 4.63-6.08 L (test code = 761) HEMOGLOBIN (BEAKER) (test code = 7.9 GM/DL 13.7-17.5 L 410) HEMATOCRIT (BEAKER) (test code = 27.3 % 40.1-51.0 L 411) MEAN CORPUSCULAR VOLUME (BEAKER) 77.6 fL 79.0-92.2 L (test code = 753) MEAN CORPUSCULAR HEMOGLOBIN 22.4 pg 25.7-32.2 L (BEAKER) (test code = 751) MEAN CORPUSCULAR HEMOGLOBIN CONC 28.9 GM/DL 32.3-36.5 L (BEAKER) (test code = 752) RED CELL DISTRIBUTION WIDTH 15.3 % 11.6-14.4 H (BEAKER) (test code = 412) PLATELET COUNT (BEAKER) (test 277 K/CU MM 150-450 code = 756) MEAN PLATELET VOLUME (BEAKER) 9.7 fL 9.4-12.4 (test code = 754) NUCLEATED RED BLOOD CELLS 0 /100 WBC 0-0 (BEAKER) (test code = 413) NEUTROPHILS RELATIVE PERCENT 73 % (BEAKER) (test code = 429) LYMPHOCYTES RELATIVE PERCENT 17 % (BEAKER) (test code = 430) MONOCYTES RELATIVE PERCENT 7 % (BEAKER) (test code = 431) EOSINOPHILS RELATIVE PERCENT 3 % (BEAKER) (test code = 432) BASOPHILS RELATIVE PERCENT 1 % (BEAKER) (test code = 437) NEUTROPHILS ABSOLUTE COUNT 6.43 K/ L 1.78-5.38 H (BEAKER) (test code = 670) LYMPHOCYTES ABSOLUTE COUNT 1.49 K/ L 1.32-3.57 (BEAKER) (test code = 414) MONOCYTES ABSOLUTE COUNT (BEAKER) 0.57 K/ L 0.30-0.82 (test code = 415) EOSINOPHILS ABSOLUTE COUNT 0.24 K/ L 0.04-0.54 (BEAKER) (test code = 416) BASOPHILS ABSOLUTE COUNT (BEAKER) 0.05 K/ L 0.01-0.08 (test code = 417) IMMATURE GRANULOCYTES-RELATIVE 0 % 0-1 PERCENT (BEAKER) (test code = 2801) CALCIUM, [id number] 04:55:34 Test Item Value Reference Range Interpretation Comments CALCIUM IONIZED (BEAKER) (test 1.12 mmol/L 1.12-1.27 code = 698) PH, BLOOD (AKER) (test code = 7.35 1810) POCT-GLUCOSE [id number] 00:18:50 Test Item Value Reference Range Interpretation Comments POC-GLUCOSE METER 89 mg/dL 70-110 : TESTED A T [facility] ([facility]) (test code = [facility], [facility]) [address]: Rn Neonatal Icu/Techni franklin ID = [id number] for Acor d, Emil POCT-GLUCOSE [id number] 19:16:48 Test Item Value Reference Range Interpretation Comments POC-GLUCOSE METER 97 mg/dL 70-110 : TESTED A T [facility] (BEAKER) (test code = [facility], [facility]) 15882: Rn Neonatal Icu/Techni franklin ID = [id number] for Kige r, Mann POCT-GLUCOSE [id number] 18:46:55 Test Item Value Reference Range Interpretation Comments POC-GLUCOSE METER 67 mg/dL 70-110 L : TESTED A T [facility] 67[facility] (BEAKER) (test code = [facility], 1538) 46751: Rn Neonatal Icu/Techni franklin ID = [id number] for Kige r, Mann POCT-GLUCOSE [id number] 11:56:13 Test Item Value Reference Range Interpretation Comments POC-GLUCOSE METER 81 mg/dL 70-110 : TESTED A T [facility] ([facility]) (test code = [facility], [facility]) 93358: Rn Neonatal Icu/Techni franklin ID = [id number] for JASPREET LAYTON U/S, RENAL, [id number] 10:20:00Reason for exam:->[facility] CENTERName: DOC MIRANDA : 1960 Sex: MFINAL REPORT U/S, RENAL, COMPLETE CLINICAL HISTORY: [facility] COMPARISON: Outside CT 06/11/2022. TECHNIQUE: Real time grayscale and color Doppler imaging of the kidneys and urinary bladder was performed. FINDINGS: Right kidney:Length = 10.8 cmCortical thickness: NormalEchogenicity: Mildly increasedCollecting system: No hydronephrosisOther findings: None Left kidney:Length = 14.6 cmCortical thickness: NormalEchogenicity: NormalCollecting system: No hydronephrosisOther findings: None Urinarybladder: Unremarkable within the limitations of exam Other findings: Small amount of free peritonealfluid IMPRESSION: No hydronephrosis bilaterally. Small amount of free peritoneal fluid. Signed: Ganga Devi MDReport Verified Date/Time: 06/15/2022 10:20:58 PHOSPHORUS 2022-06-15 09:45:12 Test Item Value Reference Range Interpretation Comments PHOSPHORUS (BEAKER) (test code = 3.3 mg/dL 2.3-4.7 604) Rn Neonatal Icu ID - BSCOMPREHENSIVE METABOLIC [id number] 09:45:11 Test Item Value Reference Range Interpretation Comments TOTAL PROTEIN 5.7 gm/dL 6.0-8.3 L (BEAKER) (test code = 770) ALBUMIN (BEAKER) 2.4 g/dL 3.5-5.0 L (test code = 1145) ALKALINE 73 U/L 40-150 PHOSPHATASE (BEAKER) (test code = 346) BILIRUBIN TOTAL 0.5 mg/dL 0.2-1.2 (BEAKER) (test code = 377) SODIUM (BEAKER) 148 meq/L 136-145 H (test code = 381) POTASSIUM (BEAKER) 3.9 meq/L 3.5-5.1 (test code = 379) CHLORIDE (BEAKER) 119 meq/L 98-107 H (test code = 382) CO2 (BEAKER) (test 20 meq/L 22-29 L code = 355) BLOOD UREA 46 mg/dL 7-21 H NITROGEN (BEAKER) (test code = 354) CREATININE 2.24 mg/dL 0.57-1.25 H (BEAKER) (test code = 358) GLUCOSE RANDOM 84 mg/dL 70-105 (BEAKER) (test code = 652) CALCIUM (BEAKER) 8.0 mg/dL 8.4-10.2 L (test code = 697) AST (SGOT) 21 U/L 5-34 (BEAKER) (test code = 353) ALT (SGPT) 9 U/L 6-55 (BEAKER) (test code = 347) EGFR (BEAKER) 33 Interpretatio n of eGFR (test code = 1092) mL/min/1.[address] age Description sq m Result G1 Mary l or high >=90 G2 Mildly decreased 60-89 G3a Mildl y to moderately 45-5 9 G3b Moderately to s everely 30-44 G4 Severl y decreased 15-29 G5 Kidney failure <15Reported eGF R is based on the CKD-EPI 2021 equation that d oes not use a race coefficientEsti mated GFR is not as accur ate as Creatinine Mary dodge in predicting glom erular filtration rate . Estimated GFR is not appl icable for dialysis patien ts Rn Neonatal Icu ID - [id number] 09:45:11 Test Item Value Reference Range Interpretation Comments MAGNESIUM (BEAKER) (test code = 2.2 mg/dL 1.6-2.6 627) Rn Neonatal Icu ID - BSPOCT-GLUCOSE [id number] 06:37:57 Test Item Value Reference Range Interpretation Comments POC-GLUCOSE METER 73 mg/dL 70-110 : TESTED A T [facility] (BEAKER) (test code = [place] [place], 1538) 338[address]: Rn Neonatal Icu/Techni franklin ID = [id number] for FLAQUITO DALY CBC W/PLT COUNT & AUTO [id number] 05:23:57 Test Item Value Reference Range Interpretation Comments WHITE BLOOD CELL COUNT (BEAKER) 11.2 K/ L 3.5-10.5 H (test code = 775) RED BLOOD CELL COUNT (BEAKER) 3.10 M/ L 4.63-6.08 L (test code = 761) HEMOGLOBIN (BEAKER) (test code = 6.9 GM/DL 13.7-17.5 L 410) HEMATOCRIT (BEAKER) (test code = 23.8 % 40.1-51.0 L 411) MEAN CORPUSCULAR VOLUME (BEAKER) 76.8 fL 79.0-92.2 L (test code = 753) MEAN CORPUSCULAR HEMOGLOBIN 22.3 pg 25.7-32.2 L (BEAKER) (test code = 751) MEAN CORPUSCULAR HEMOGLOBIN CONC 29.0 GM/DL 32.3-36.5 L (BEAKER) (test code = 752) RED CELL DISTRIBUTION WIDTH 15.5 % 11.6-14.4 H (BEAKER) (test code = 412) PLATELET COUNT (BEAKER) (test 271 K/CU MM 150-450 code = 756) MEAN PLATELET VOLUME (BEAKER) 9.6 fL 9.4-12.4 (test code = 754) NUCLEATED RED BLOOD CELLS 0 /100 WBC 0-0 (BEAKER) (test code = 413) NEUTROPHILS RELATIVE PERCENT 74 % (BEAKER) (test code = 429) LYMPHOCYTES RELATIVE PERCENT 18 % (BEAKER) (test code = 430) MONOCYTES RELATIVE PERCENT 7 % (BEAKER) (test code = 431) EOSINOPHILS RELATIVE PERCENT 0 % (BEAKER) (test code = 432) BASOPHILS RELATIVE PERCENT 0 % (BEAKER) (test code = 437) NEUTROPHILS ABSOLUTE COUNT 8.32 K/ L 1.78-5.38 H (BEAKER) (test code = 670) LYMPHOCYTES ABSOLUTE COUNT 1.97 K/ L 1.32-3.57 (BEAKER) (test code = 414) MONOCYTES ABSOLUTE COUNT (BEAKER) 0.79 K/ L 0.30-0.82 (test code = 415) EOSINOPHILS ABSOLUTE COUNT 0.05 K/ L 0.04-0.54 (BEAKER) (test code = 416) BASOPHILS ABSOLUTE COUNT (BEAKER) 0.05 K/ L 0.01-0.08 (test code = 417) IMMATURE GRANULOCYTES-RELATIVE 0 % 0-1 PERCENT (BEAKER) (test code = 2801) POCT-GLUCOSE [id number] 22:31:39 Test Item Value Reference Range Interpretation Comments POC-GLUCOSE METER 100 mg/dL 70-110 : TESTED A T [facility] 67[facility] (BEAKER) (test code = [facility], 1538) 60921: Rn Neonatal Icu/Techni franklin ID = [id number] for FLAQUITO ESTEVES POCT-GLUCOSE [id number] 18:11:09 Test Item Value Reference Range Interpretation Comments POC-GLUCOSE METER 111 mg/dL 70-110 H : TESTED A T [facility] 6720 (BEAKER) (test code = [facility], 1538) 90136: Rn Neonatal Icu/Techni franklin ID = [id number] for Joshua Holland Surgically obtained culture + gram [id number] 16:08:07 Test Item Value Reference Range Interpretation Comments Result (test code = 6463-4) No growth Gram Stain Result (test No organisms seen code = 1123) [facility] [id number] 16:08:07 Test Item Value Reference Range Interpretation Comments Result (test code = 6463-4) No growth Gram Stain Result (test No organisms seen code = 1123) [facility] + gram [id number] 16:08:07 Test Item Value Reference Range Interpretation Comments Result (test code = 6463-4) No growth Gram Stain Result (test No organisms seen code = 1123) [facility] + gram [id number] 16:08:07 Test Item Value Reference Range Interpretation Comments Result (test code = 6463-4) No growth Gram Stain Result (test No organisms seen code = 1123) [facility] + gram [id number] 16:08:07 Test Item Value Reference Range Interpretation Comments Result (test code = 6463-4) No growth Gram Stain Result (test No organisms seen code = 1123) [facility] + gram [id number] 16:08:07 Test Item Value Reference Range Interpretation Comments Result (test code = 6463-4) No growth Gram Stain Result (test No organisms seen code = 1123) [facility] + gram [id number] 16:08:07 Test Item Value Reference Range Interpretation Comments Result (test code = 6463-4) No growth Gram Stain Result (test No organisms seen code = 1123) [facility] + gram [id number] 16:08:07 Test Item Value Reference Range Interpretation Comments Result (test code = 6463-4) No growth Gram Stain Result (test No organisms seen code = 1123) [facility] [id number] 16:08:07 Test Item Value Reference Range Interpretation Comments Result (test code = 6463-4) No growth Gram Stain Result (test No organisms seen code = 1123) [facility] + gram [id number] 16:08:07 Test Item Value Reference Range Interpretation Comments Result (test code = 6463-4) No growth Gram Stain Result (test No organisms seen code = 1123) [facility] + gram [id number] 16:08:07 Test Item Value Reference Range Interpretation Comments Result (test code = 6463-4) No growth Gram Stain Result (test No organisms seen code = 1123) [facility] + gram [id number] 16:08:07 Test Item Value Reference Range Interpretation Comments Result (test code = 6463-4) No growth Gram Stain Result (test No organisms seen code = 1123) [facility] [id number] 16:08:07 Test Item Value Reference Range Interpretation Comments Result (test code = 6463-4) No growth Gram Stain Result (test No organisms seen code = 1123) [facility] + gram [id number] 16:08:07 Test Item Value Reference Range Interpretation Comments Result (test code = 6463-4) No growth Gram Stain Result (test No organisms seen code = 1123) [facility] + gram [id number] 16:08:07 Test Item Value Reference Range Interpretation Comments Result (test code = 6463-4) No growth Gram Stain Result (test No organisms seen code = 1123) [facility] + gram [id number] 16:08:07 Test Item Value Reference Range Interpretation Comments Result (test code = 6463-4) No growth Gram Stain Result (test No organisms seen code = 1123) [facility] + gram [id number] 16:08:07 Test Item Value Reference Range Interpretation Comments Result (test code = 6463-4) No growth Gram Stain Result (test No organisms seen code = 1123) [facility] + gram [id number] 16:08:07 Test Item Value Reference Range Interpretation Comments Result (test code = 6463-4) No growth Gram Stain Result (test No organisms seen code = 1123) [facility] + gram [id number] 16:08:07 Test Item Value Reference Range Interpretation Comments Result (test code = 6463-4) No growth Gram Stain Result (test No organisms seen code = 1123) [facility] + GRAM [id number] 16:08:07 Test Item Value Reference Range Interpretation Comments CULTURE (BEAKER) (test code No growth = 1095) GRAM STAIN RESULT (BEAKER) 1+ WBCs (test code = 1123) GRAM STAIN RESULT (BEAKER) No organisms seen (test code = 01211) RAD, ABDOMEN/KUB, 1 VIEW [id number] 15:46:00Reason for exam:->[facility] : 1960 Sex: MFINAL REPORT RAD, ABDOMEN/KUB, 1 VIEW AP CLINICAL INDICATION: NGT reposition COMPARISON: 06/14/2022 TECHNIQUE: Frontal radiograph(s) of the abdomen. FINDINGS: The bowel gas pattern consists of dilated small bowel loops and air- filled large bowel loops. The nasogastric tube tip overlies the stomach. Evaluation for free air is limited by portable supine technique. Within these limitations, no free air is identified.Midline laparotomy changes are present. The Sandoval catheter tip overlies the pelvis in the region of the urinary bladder. Calcific catheter nonspecific catheter overlies the left pelvis. IMPRESSION: 1.The nasogastric tube tip overlies the proximal stomach. 2.Dilated air-filled large and small bowel loops, with decreased distention compared to prior exam, which may represent ileus or large bowel obstruction. Signed: Kerry Roth MDReport Verified Date/Time: 06/14/2022 15:46:51 Reading Location: [address] Reading Room Urinalysis Microscopic [id number] 14:48:24 Test Item Value Reference Range Interpretation Comments RBC, UA (test code 39 See_Comment [Automat ed = 61851-1) message] The sy stem which generated this result transmitted reference range : /HPF. The refer ence range was not u sed to interpret th is result as normal/abnormal . WBC, UA (test code 18 See_Comment [Automat ed = 5821-4) message] The sy stem which generated this result transmitted reference range : /HPF. The refer ence range was not u sed to interpret th is result as normal/abnormal . Bacteria, UA (test None Seen code = 34123-1) Mucus (test code = Few 8247-9) Hyaline Casts, UA 67 See_Comment [Automate d (test code = message] The sy stem 74676-4) which generated this result transmitted reference range : /LPF. The refer ence range was not u sed to interpret th is result as normal/abnormal . Granular Casts, UA 15 See_Comment [Automat ed (test code = message] The sy stem 5793-5) which generated this result transmitted reference range : /LPF. The refer ence range was not u sed to interpret th is result as normal/abnormal . Crystals, Urine None Seen (test code = 79145-6) Amorphous Crystals Rare (test code = 51388-5) ELINA (test code = Rn Neonatal Icu ID - ELINA) [facility] [id number] 14:48:24 Test Item Value Reference Range Interpretation Comments RBC, UA (test code 39 See_Comment [Automat ed = 98105-3) message] The sy stem which generated this result transmitted reference range : /HPF. The refer ence range was not u sed to interpret th is result as normal/abnormal . WBC, UA (test code 18 See_Comment [Automat ed = 5821-4) message] The sy stem which generated this result transmitted reference range : /HPF. The refer ence range was not u sed to interpret th is result as normal/abnormal . Bacteria, UA (test None Seen code = 79627-3) Mucus (test code = Few 8247-9) Hyaline Casts, UA 67 See_Comment [Automate d (test code = message] The sy stem 45781-5) which generated this result transmitted reference range : /LPF. The refer ence range was not u sed to interpret th is result as normal/abnormal . Granular Casts, UA 15 See_Comment [Automat ed (test code = message] The sy stem 5793-5) which generated this result transmitted reference range : /LPF. The refer ence range was not u sed to interpret th is result as normal/abnormal . Crystals, Urine None Seen (test code = 61926-5) Amorphous Crystals Rare (test code = 09180-9) ELINA (test code = Rn Neonatal Icu ID - ELINA) [facility] [id number] 14:48:24 Test Item Value Reference Range Interpretation Comments RBC, UA (test code 39 See_Comment [Automat ed = 46843-0) message] The sy stem which generated this result transmitted reference range : /HPF. The refer ence range was not u sed to interpret th is result as normal/abnormal . WBC, UA (test code 18 See_Comment [Automat ed = 5821-4) message] The sy stem which generated this result transmitted reference range : /HPF. The refer ence range was not u sed to interpret th is result as normal/abnormal . Bacteria, UA (test None Seen code = 21509-6) Mucus (test code = Few 8247-9) Hyaline Casts, UA 67 See_Comment [Automate d (test code = message] The sy stem 65913-8) which generated this result transmitted reference range : /LPF. The refer ence range was not u sed to interpret th is result as normal/abnormal . Granular Casts, UA 15 See_Comment [Automat ed (test code = message] The sy stem 5793-5) which generated this result transmitted reference range : /LPF. The refer ence range was not u sed to interpret th is result as normal/abnormal . Crystals, Urine None Seen (test code = 25680-5) Amorphous Crystals Rare (test code = 95941-9) EILNA (test code = Rn Neonatal Icu ID - ELINA) [facility] [id number] 14:48:24 Test Item Value Reference Range Interpretation Comments RBC, UA (test code 39 See_Comment [Automat ed = 32234-7) message] The sy stem which generated this result transmitted reference range : /HPF. The refer ence range was not u sed to interpret th is result as normal/abnormal . WBC, UA (test code 18 See_Comment [Automat ed = 5821-4) message] The sy stem which generated this result transmitted reference range : /HPF. The refer ence range was not u sed to interpret th is result as normal/abnormal . Bacteria, UA (test None Seen code = 14924-0) Mucus (test code = Few 8247-9) Hyaline Casts, UA 67 See_Comment [Automate d (test code = message] The sy stem 49568-3) which generated this result transmitted reference range : /LPF. The refer ence range was not u sed to interpret th is result as normal/abnormal . Granular Casts, UA 15 See_Comment [Automat ed (test code = message] The sy stem 5793-5) which generated this result transmitted reference range : /LPF. The refer ence range was not u sed to interpret th is result as normal/abnormal . Crystals, Urine None Seen (test code = 73723-4) Amorphous Crystals Rare (test code = 54449-9) ELINA (test code = Rn Neonatal Icu ID - ELINA) [facility] [id number] 14:48:24 Test Item Value Reference Range Interpretation Comments RBC, UA (test code 39 See_Comment [Automat ed = 34209-9) message] The sy stem which generated this result transmitted reference range : /HPF. The refer ence range was not u sed to interpret th is result as normal/abnormal . WBC, UA (test code 18 See_Comment [Automat ed = 5821-4) message] The sy stem which generated this result transmitted reference range : /HPF. The refer ence range was not u sed to interpret th is result as normal/abnormal . Bacteria, UA (test None Seen code = 16924-8) Mucus (test code = Few 8247-9) Hyaline Casts, UA 67 See_Comment [Automate d (test code = message] The sy stem 50613-2) which generated this result transmitted reference range : /LPF. The refer ence range was not u sed to interpret th is result as normal/abnormal . Granular Casts, UA 15 See_Comment [Automat ed (test code = message] The sy stem 5793-5) which generated this result transmitted reference range : /LPF. The refer ence range was not u sed to interpret th is result as normal/abnormal . Crystals, Urine None Seen (test code = 26555-4) Amorphous Crystals Rare (test code = 82253-9) ELINA (test code = Rn Neonatal Icu ID - ELINA) [facility] [id number] 14:48:24 Test Item Value Reference Range Interpretation Comments RBC, UA (test code 39 See_Comment [Automat ed = 56743-0) message] The sy stem which generated this result transmitted reference range : /HPF. The refer ence range was not u sed to interpret th is result as normal/abnormal . WBC, UA (test code 18 See_Comment [Automat ed = 5821-4) message] The sy stem which generated this result transmitted reference range : /HPF. The refer ence range was not u sed to interpret th is result as normal/abnormal . Bacteria, UA (test None Seen code = 94626-7) Mucus (test code = Few 8247-9) Hyaline Casts, UA 67 See_Comment [Automate d (test code = message] The sy stem 03337-9) which generated this result transmitted reference range : /LPF. The refer ence range was not u sed to interpret th is result as normal/abnormal . Granular Casts, UA 15 See_Comment [Automat ed (test code = message] The sy stem 5793-5) which generated this result transmitted reference range : /LPF. The refer ence range was not u sed to interpret th is result as normal/abnormal . Crystals, Urine None Seen (test code = 99348-5) Amorphous Crystals Rare (test code = 70373-4) ELINA (test code = Rn Neonatal Icu ID - ELINA) [facility] [id number] 14:48:24 Test Item Value Reference Range Interpretation Comments RBC, UA (test code 39 See_Comment [Automat ed = 35373-9) message] The sy stem which generated this result transmitted reference range : /HPF. The refer ence range was not u sed to interpret th is result as normal/abnormal . WBC, UA (test code 18 See_Comment [Automat ed = 5821-4) message] The sy stem which generated this result transmitted reference range : /HPF. The refer ence range was not u sed to interpret th is result as normal/abnormal . Bacteria, UA (test None Seen code = 14304-5) Mucus (test code = Few 8247-9) Hyaline Casts, UA 67 See_Comment [Automate d (test code = message] The sy stem 75550-1) which generated this result transmitted reference range : /LPF. The refer ence range was not u sed to interpret th is result as normal/abnormal . Granular Casts, UA 15 See_Comment [Automat ed (test code = message] The sy stem 5793-5) which generated this result transmitted reference range : /LPF. The refer ence range was not u sed to interpret th is result as normal/abnormal . Crystals, Urine None Seen (test code = 13006-9) Amorphous Crystals Rare (test code = 15740-7) ELINA (test code = Rn Neonatal Icu ID - ELINA) [facility] [id number] 14:48:24 Test Item Value Reference Range Interpretation Comments RBC, UA (test code 39 See_Comment [Automat ed = 52437-9) message] The sy stem which generated this result transmitted reference range : /HPF. The refer ence range was not u sed to interpret th is result as normal/abnormal . WBC, UA (test code 18 See_Comment [Automat ed = 5821-4) message] The sy stem which generated this result transmitted reference range : /HPF. The refer ence range was not u sed to interpret th is result as normal/abnormal . Bacteria, UA (test None Seen code = 96508-4) Mucus (test code = Few 8247-9) Hyaline Casts, UA 67 See_Comment [Automate d (test code = message] The sy stem 25958-7) which generated this result transmitted reference range : /LPF. The refer ence range was not u sed to interpret th is result as normal/abnormal . Granular Casts, UA 15 See_Comment [Automat ed (test code = message] The sy stem 5793-5) which generated this result transmitted reference range : /LPF. The refer ence range was not u sed to interpret th is result as normal/abnormal . Crystals, Urine None Seen (test code = 00428-7) Amorphous Crystals Rare (test code = 12545-9) ELINA (test code = Rn Neonatal Icu ID - ELINA) [facility] [id number] 14:48:24 Test Item Value Reference Range Interpretation Comments RBC, UA (test code 39 See_Comment [Automat ed = 84116-3) message] The sy stem which generated this result transmitted reference range : /HPF. The refer ence range was not u sed to interpret th is result as normal/abnormal . WBC, UA (test code 18 See_Comment [Automat ed = 5821-4) message] The sy stem which generated this result transmitted reference range : /HPF. The refer ence range was not u sed to interpret th is result as normal/abnormal . Bacteria, UA (test None Seen code = 89377-8) Mucus (test code = Few 8247-9) Hyaline Casts, UA 67 See_Comment [Automate d (test code = message] The sy stem 92378-1) which generated this result transmitted reference range : /LPF. The refer ence range was not u sed to interpret th is result as normal/abnormal . Granular Casts, UA 15 See_Comment [Automat ed (test code = message] The sy stem 5793-5) which generated this result transmitted reference range : /LPF. The refer ence range was not u sed to interpret th is result as normal/abnormal . Crystals, Urine None Seen (test code = 50396-6) Amorphous Crystals Rare (test code = 13230-3) ELINA (test code = Rn Neonatal Icu ID - ELINA) [facility] [id number] 14:48:24 Test Item Value Reference Range Interpretation Comments RBC UA (BEAKER) (test code = 519) 39 /HPF WBC UA (BEAKER) (test code = 520) 18 /HPF BACTERIA (BEAKER) (test code = 517) None Seen MUCUS (BEAKER) (test code = 1574) Few HYALINE CASTS (BEAKER) (test code = 67 /LPF 514) GRANULAR CASTS (BEAKER) (test code 15 /LPF = 515) CRYSTALS, URINE (BEAKER) (test code None Seen = 1521) AMORPHOUS CRYSTALS (BEAKER) (test Rare code = 1584) Rn Neonatal Icu ID - techUrinalysis with Microscopic If [id number] 14:48:13 Test Item Value Reference Range Interpretation Comments Color, UA (test code = Yellow 5778-6) Clarity, UA (test code = Hazy 5767-9) Specific [place], UA (test 1.018 1.001-1.035 code = 5811-5) pH, UA (test code = 6.0 5.0-8.0 5803-2) Protein, UA (test code = 200 mg/dL Negative A 45015-2) Glucose, UA (test code = Negative Negative 365) Ketones, UA (test code = Negative Negative 2514-8) Bilirubin, UA (test code = Negative Negative 76240-9) Blood, UA (test code = Moderate Negative A 39630-0) Nitrite, UA (test code = Negative Negative 5802-4) Leukocytes, UA (test code Small Negative A = 5799-2) Urobilinogen, UA (test 2.0 mg/dL 0.2-1.0 H code = 80317-8) Specimen Source (test code = 2795) ELINA (test code = ELINA) Rn Neonatal Icu ID - [auto]Rn Neonatal Icu ID - tech Lab Interpretation (test Abnormal code = 74303-0) [facility] [id number] 14:48:13 Test Item Value Reference Range Interpretation Comments Color, UA (test code = Yellow 5778-6) Clarity, UA (test code = Hazy 5767-9) Specific [place], UA (test 1.018 1.001-1.035 code = 5811-5) pH, UA (test code = 6.0 5.0-8.0 5803-2) Protein, UA (test code = 200 mg/dL Negative A 80037-6) Glucose, UA (test code = Negative Negative 365) Ketones, UA (test code = Negative Negative 2514-8) Bilirubin, UA (test code = Negative Negative 32817-1) Blood, UA (test code = Moderate Negative A 11119-1) Nitrite, UA (test code = Negative Negative 5802-4) Leukocytes, UA (test code Small Negative A = 5799-2) Urobilinogen, UA (test 2.0 mg/dL 0.2-1.0 H code = 74494-3) Specimen Source (test code = 2795) ELINA (test code = ELINA) Rn Neonatal Icu ID - [auto]Rn Neonatal Icu ID - tech Lab Interpretation (test Abnormal code = 92167-0) [facility] If [id number] 14:48:13 Test Item Value Reference Range Interpretation Comments Color, UA (test code = Yellow 5778-6) Clarity, UA (test code = Hazy 5767-9) Specific [place], UA (test 1.018 1.001-1.035 code = 5811-5) pH, UA (test code = 6.0 5.0-8.0 5803-2) Protein, UA (test code = 200 mg/dL Negative A 64038-7) Glucose, UA (test code = Negative Negative 365) Ketones, UA (test code = Negative Negative 2514-8) Bilirubin, UA (test code = Negative Negative 86233-9) Blood, UA (test code = Moderate Negative A 30617-9) Nitrite, UA (test code = Negative Negative 5802-4) Leukocytes, UA (test code Small Negative A = 5799-2) Urobilinogen, UA (test 2.0 mg/dL 0.2-1.0 H code = 16205-1) Specimen Source (test code = 2795) ELINA (test code = ELINA) Rn Neonatal Icu ID - [auto]Rn Neonatal Icu ID - tech Lab Interpretation (test Abnormal code = 07389-6) [facility] If [id number] 14:48:13 Test Item Value Reference Range Interpretation Comments Color, UA (test code = Yellow 5778-6) Clarity, UA (test code = Hazy 5767-9) Specific [place], UA (test 1.018 1.001-1.035 code = 5811-5) pH, UA (test code = 6.0 5.0-8.0 5803-2) Protein, UA (test code = 200 mg/dL Negative A 70365-5) Glucose, UA (test code = Negative Negative 365) Ketones, UA (test code = Negative Negative 2514-8) Bilirubin, UA (test code = Negative Negative 54356-4) Blood, UA (test code = Moderate Negative A 14043-0) Nitrite, UA (test code = Negative Negative 5802-4) Leukocytes, UA (test code Small Negative A = 5799-2) Urobilinogen, UA (test 2.0 mg/dL 0.2-1.0 H code = 84396-2) Specimen Source (test code = 2795) ELINA (test code = ELINA) Rn Neonatal Icu ID - [auto]Rn Neonatal Icu ID - tech Lab Interpretation (test Abnormal code = 90452-3) [facility] If [id number] 14:48:13 Test Item Value Reference Range Interpretation Comments Color, UA (test code = Yellow 5778-6) Clarity, UA (test code = Hazy 5767-9) Specific [place], UA (test 1.018 1.001-1.035 code = 5811-5) pH, UA (test code = 6.0 5.0-8.0 5803-2) Protein, UA (test code = 200 mg/dL Negative A 38524-5) Glucose, UA (test code = Negative Negative 365) Ketones, UA (test code = Negative Negative 2514-8) Bilirubin, UA (test code = Negative Negative 93574-5) Blood, UA (test code = Moderate Negative A 13176-7) Nitrite, UA (test code = Negative Negative 5802-4) Leukocytes, UA (test code Small Negative A = 5799-2) Urobilinogen, UA (test 2.0 mg/dL 0.2-1.0 H code = 12315-1) Specimen Source (test code = 2795) ELINA (test code = ELINA) Rn Neonatal Icu ID - [auto]Rn Neonatal Icu ID - tech Lab Interpretation (test Abnormal code = 15482-7) [facility] If [id number] 14:48:13 Test Item Value Reference Range Interpretation Comments Color, UA (test code = Yellow 5778-6) Clarity, UA (test code = Hazy 5767-9) Specific [place], UA (test 1.018 1.001-1.035 code = 5811-5) pH, UA (test code = 6.0 5.0-8.0 5803-2) Protein, UA (test code = 200 mg/dL Negative A 91329-0) Glucose, UA (test code = Negative Negative 365) Ketones, UA (test code = Negative Negative 2514-8) Bilirubin, UA (test code = Negative Negative 68039-4) Blood, UA (test code = Moderate Negative A 70924-7) Nitrite, UA (test code = Negative Negative 5802-4) Leukocytes, UA (test code Small Negative A = 5799-2) Urobilinogen, UA (test 2.0 mg/dL 0.2-1.0 H code = 81559-2) Specimen Source (test code = 2795) ELINA (test code = ELINA) Rn Neonatal Icu ID - [auto]Rn Neonatal Icu ID - tech Lab Interpretation (test Abnormal code = 19090-8) [facility] If [id number] 14:48:13 Test Item Value Reference Range Interpretation Comments Color, UA (test code = Yellow 5778-6) Clarity, UA (test code = Hazy 5767-9) Specific [place], UA (test 1.018 1.001-1.035 code = 5811-5) pH, UA (test code = 6.0 5.0-8.0 5803-2) Protein, UA (test code = 200 mg/dL Negative A 68886-1) Glucose, UA (test code = Negative Negative 365) Ketones, UA (test code = Negative Negative 2514-8) Bilirubin, UA (test code = Negative Negative 74052-1) Blood, UA (test code = Moderate Negative A 78297-5) Nitrite, UA (test code = Negative Negative 5802-4) Leukocytes, UA (test code Small Negative A = 5799-2) Urobilinogen, UA (test 2.0 mg/dL 0.2-1.0 H code = 24326-2) Specimen Source (test code = 2795) ELINA (test code = ELINA) Rn Neonatal Icu ID - [auto]Rn Neonatal Icu ID - tech Lab Interpretation (test Abnormal code = 40832-8) [facility] If [id number] 14:48:13 Test Item Value Reference Range Interpretation Comments Color, UA (test code = Yellow 5778-6) Clarity, UA (test code = Hazy 5767-9) Specific [place], UA (test 1.018 1.001-1.035 code = 5811-5) pH, UA (test code = 6.0 5.0-8.0 5803-2) Protein, UA (test code = 200 mg/dL Negative A 79159-2) Glucose, UA (test code = Negative Negative 365) Ketones, UA (test code = Negative Negative 2514-8) Bilirubin, UA (test code = Negative Negative 04416-6) Blood, UA (test code = Moderate Negative A 31771-3) Nitrite, UA (test code = Negative Negative 5802-4) Leukocytes, UA (test code Small Negative A = 5799-2) Urobilinogen, UA (test 2.0 mg/dL 0.2-1.0 H code = 01287-7) Specimen Source (test code = 2795) ELINA (test code = ELINA) Rn Neonatal Icu ID - [auto]Rn Neonatal Icu ID - tech Lab Interpretation (test Abnormal code = 61489-0) [facility] If [id number] 14:48:13 Test Item Value Reference Range Interpretation Comments Color, UA (test code = Yellow 5778-6) Clarity, UA (test code = Hazy 5767-9) Specific [place], UA (test 1.018 1.001-1.035 code = 5811-5) pH, UA (test code = 6.0 5.0-8.0 5803-2) Protein, UA (test code = 200 mg/dL Negative A 80495-1) Glucose, UA (test code = Negative Negative 365) Ketones, UA (test code = Negative Negative 2514-8) Bilirubin, UA (test code = Negative Negative 67280-3) Blood, UA (test code = Moderate Negative A 02875-4) Nitrite, UA (test code = Negative Negative 5802-4) Leukocytes, UA (test code Small Negative A = 5799-2) Urobilinogen, UA (test 2.0 mg/dL 0.2-1.0 H code = 25473-6) Specimen Source (test code = 2795) ELINA (test code = ELINA) Rn Neonatal Icu ID - [auto]Rn Neonatal Icu ID - tech Lab Interpretation (test Abnormal code = 61562-8) [facility] MICROSCOPIC IF [id number] 14:48:13 Test Item Value Reference Range Interpretation Comments COLOR (BEAKER) (test code = 470) Yellow CLARITY (BEAKER) (test code = 469) Hazy SPECIFIC GRAVITY UA (BEAKER) (test 1.018 1.001-1.035 code = 468) PH UA (BEAKER) (test code = 467) 6.0 5.0-8.0 PROTEIN UA (BEAKER) (test code = 200 mg/dL Negative A 464) GLUCOSE UA (BEAKER) (test code = Negative Negative 365) KETONES UA (BEAKER) (test code = Negative Negative 371) BILIRUBIN UA (BEAKER) (test code = Negative Negative 462) BLOOD UA (BEAKER) (test code = 461) Moderate Negative A NITRITE UA (BEAKER) (test code = Negative Negative 465) LEUKOCYTE ESTERASE UA (BEAKER) Small Negative A (test code = 466) UROBILINOGEN UA (BEAKER) (test code 2.0 mg/dL 0.2-1.0 H = 463) SOURCE(BEAKER) (test code = 2795) Rn Neonatal Icu ID - [auto]Rn Neonatal Icu ID - techCARCINOEMBRYONIC ANTIGEN (CEA)2022-06-14 13:58:28 Test Item Value Reference Range Interpretation Comments CARCINOEMBRYONIC ANTIGEN (BEAKER) 12.5 ng/mL 0.0-5.0 H (test code = 685) Rn Neonatal Icu ID - JOSE CRUZ WEBER, ABDOMEN, 2 [id number] 12:59:00Reason for exam:->[facility]orsening [facility] 1960 Sex: MFINAL REPORT ABDOMEN 2 VIEWS CLINICAL INDICATION: worsening ileus COMPARISON: 06/12/2022 TECHNIQUE: supine and standing/lateral radiographs of the abdomen. FINDINGS: The bowel gas pattern consists of dilated small bowel loops and dilated air- filled large bowel loops. The nasogastric tube tip overlies the distal esophagus. Recommend advancing 7 cm. No free air is identified.Midline laparotomychanges are seen. A drain overlies left pelvis. The Sandoval catheter tip overlies the pelvis in the region of the urinary bladder. . Mild to moderate spondylosis and facet arthropathy are present within the spine. IMPRESSION: 1.Dilated large and small bowel loops, representing ileus or large bowel obstru ction.2.The nasogastric tube tip overlies the distal esophagus. Recommend advancing 7 cm. The NG tube was discussed with nurse Blackwood who acknowledged the findings, on 06/14/2022 at 12:58 PM. Signed: Kerry Roth [facility] [place] Verified Date/Time: 06/14/2022 12:59:47 Reading Location: [facility] [address] [facility] Reading Room Creatinine, random [id number] 12:00:43 Test Item Value Reference Range Interpretation Comments Creatinine, Ur 239.4 mg/dL (test code = 2161-8) ELINA (test code = Reference Range: No ELINA) NormalsOperator ID - JOSE CRUZ [facility]son [facility], random [id number] 12:00:43 Test Item Value Reference Range Interpretation Comments Creatinine, Ur 239.4 mg/dL (test code = 2161-8) ELINA (test code = Reference Range: No ELINA) NormalsOperator ID Scott [facility] [id number] 12:00:43 Test Item Value Reference Range Interpretation Comments Creatinine, Ur 239.4 mg/dL (test code = 2161-8) ELINA (test code = Reference Range: No ELINA) NormalsOperator ID Scott Stephenson [facility], random [id number] 12:00:43 Test Item Value Reference Range Interpretation Comments Creatinine, Ur 239.4 mg/dL (test code = 2161-8) ELINA (test code = Reference Range: No ELINA) NormalsOperator ID Scott Stephenson [facility], random [id number] 12:00:43 Test Item Value Reference Range Interpretation Comments Creatinine, Ur 239.4 mg/dL (test code = 2161-8) ELINA (test code = Reference Range: No ELINA) NormalsOperator ID Scott Stephenson [facility], random [id number] 12:00:43 Test Item Value Reference Range Interpretation Comments Creatinine, Ur 239.4 mg/dL (test code = 2161-8) ELINA (test code = Reference Range: No ELINA) NormalsOperator DANA Stephenson [facility], random [id number] 12:00:43 Test Item Value Reference Range Interpretation Comments Creatinine, Ur 239.4 mg/dL (test code = 2161-8) ELINA (test code = Reference Range: No ELINA) NormalsOperator DANA [facility]son [facility], random [id number] 12:00:43 Test Item Value Reference Range Interpretation Comments Creatinine, Ur 239.4 mg/dL (test code = 2161-8) ELINA (test code = Reference Range: No ELINA) NormalsOperator DANA Stephenson [facility], random [id number] 12:00:43 Test Item Value Reference Range Interpretation Comments Creatinine, Ur 239.4 mg/dL (test code = 2161-8) ELINA (test code = Reference Range: No ELINA) NormalsOperator DANA Stephenson [facility]CREAT[facility]INE, RANDOM [id number] 12:00:43 Test Item Value Reference Range Interpretation Comments CREATININE URINE (BEAKER) (test 239.4 mg/dL code = 375) Reference Range: No NormalsOperator DANA BILLINGSLEY DPOCT-GLUCOSE [id number] 11:56:24 Test Item Value Reference Range Interpretation Comments POC-GLUCOSE METER 108 mg/dL 70-110 : TESTED A T [facility] 6720 (BEAKER) (test code = KIKI Ryan [facility], 1538) 39709: Rn Neonatal Icu/Techni franklin ID = [id number] for Joshua Holland Sodium, random [id number] 11:15:49 Test Item Value Reference Range Interpretation Comments Sodium Urine (test 25 meq/L code = 2955-3) ELINA (test code = Reference Range: No ELINA) NormalsOperator DANA [facility] [id number] 11:15:49 Test Item Value Reference Range Interpretation Comments Sodium Urine (test 25 meq/L code = 2955-3) ELINA (test code = Reference Range: No ELINA) NormalsOperator DANA [facility], random [id number] 11:15:49 Test Item Value Reference Range Interpretation Comments Sodium Urine (test 25 meq/L code = 2955-3) ELINA (test code = Reference Range: No ELINA) NormalsOperator DANA [facility], random [id number] 11:15:49 Test Item Value Reference Range Interpretation Comments Sodium Urine (test 25 meq/L code = 2955-3) ELINA (test code = Reference Range: No ELINA) NormalsOperator DANA [facility], random [id number] 11:15:49 Test Item Value Reference Range Interpretation Comments Sodium Urine (test 25 meq/L code = 2955-3) ELINA (test code = Reference Range: No ELINA) NormalsOperator DANA [facility], random [id number] 11:15:49 Test Item Value Reference Range Interpretation Comments Sodium Urine (test 25 meq/L code = 2955-3) ELINA (test code = Reference Range: No ELINA) NormalsOperator DANA [facility], random [id number] 11:15:49 Test Item Value Reference Range Interpretation Comments Sodium Urine (test 25 meq/L code = 2955-3) ELINA (test code = Reference Range: No ELINA) NormalsOperator DANA [facility], random [id number] 11:15:49 Test Item Value Reference Range Interpretation Comments Sodium Urine (test 25 meq/L code = 2955-3) ELINA (test code = Reference Range: No ELINA) NormalsOperator DANA [facility], random [id number] 11:15:49 Test Item Value Reference Range Interpretation Comments Sodium Urine (test 25 meq/L code = 2955-3) ELINA (test code = Reference Range: No ELINA) NormalsOperator DANA [facility], random [id number] 11:15:49 Test Item Value Reference Range Interpretation Comments Sodium Urine (test 25 meq/L code = 2955-3) ELINA (test code = Reference Range: No ELINA) NormalsOperator DANA [facility], random [id number] 11:15:49 Test Item Value Reference Range Interpretation Comments Sodium Urine (test 25 meq/L code = 2955-3) ELINA (test code = Reference Range: No ELINA) NormalsOperator DANA [facility], random [id number] 11:15:49 Test Item Value Reference Range Interpretation Comments Sodium Urine (test 25 meq/L code = 2955-3) ELINA (test code = Reference Range: No ELINA) NormalsOperator DANA [facility], random [id number] 11:15:49 Test Item Value Reference Range Interpretation Comments Sodium Urine (test 25 meq/L code = 2955-3) ELINA (test code = Reference Range: No ELINA) NormalsOperator DANA [facility], random [id number] 11:15:49 Test Item Value Reference Range Interpretation Comments Sodium Urine (test 25 meq/L code = 2955-3) ELINA (test code = Reference Range: No ELINA) NormalsOperator DANA [facility], random [id number] 11:15:49 Test Item Value Reference Range Interpretation Comments Sodium Urine (test 25 meq/L code = 2955-3) ELINA (test code = Reference Range: No ELINA) NormalsOperator DANA [facility], random [id number] 11:15:49 Test Item Value Reference Range Interpretation Comments Sodium Urine (test 25 meq/L code = 2955-3) ELINA (test code = Reference Range: No ELINA) NormalsOperator DANA [facility], random [id number] 11:15:49 Test Item Value Reference Range Interpretation Comments Sodium Urine (test 25 meq/L code = 2955-3) ELINA (test code = Reference Range: No ELINA) NormalsOperator DANA [facility], random [id number] 11:15:49 Test Item Value Reference Range Interpretation Comments Sodium Urine (test 25 meq/L code = 2955-3) ELINA (test code = Reference Range: No ELINA) NormalsOperator DANA [facility], random [id number] 11:15:49 Test Item Value Reference Range Interpretation Comments Sodium Urine (test 25 meq/L code = 2955-3) ELINA (test code = Reference Range: No ELINA) NormalsOperator DANA Stephenson [facility] HospitalODIUM, RANDOM [id number] 11:15:49 Test Item Value Reference Range Interpretation Comments SODIUM URINE (BEAKER) (test code = 25 meq/L 243) Reference Range: No NormalsOperator ID - JOSE CRUZ DPOCT-GLUCOSE [id number] 06:56:39 Test Item Value Reference Range Interpretation Comments POC-GLUCOSE METER 114 mg/dL 70-110 H : TESTED A T [facility] 6720 (BEAKER) (test code = KIKI [place], 1538) 11835: Rn Neonatal Icu/Techni franklin ID = [id number] for [facility]ABOLIC [id number] 04:45:59 Test Item Value Reference Range Interpretation Comments TOTAL PROTEIN 5.7 gm/dL 6.0-8.3 L (BEAKER) (test code = 770) ALBUMIN (BEAKER) 2.5 g/dL 3.5-5.0 L (test code = 1145) ALKALINE 69 U/L 40-150 PHOSPHATASE (BEAKER) (test code = 346) BILIRUBIN TOTAL 0.3 mg/dL 0.2-1.2 (BEAKER) (test code = 377) SODIUM (BEAKER) 148 meq/L 136-145 H (test code = 381) POTASSIUM (BEAKER) 3.8 meq/L 3.5-5.1 (test code = 379) CHLORIDE (BEAKER) 117 meq/L 98-107 H (test code = 382) CO2 (BEAKER) (test 22 meq/L 22-29 code = 355) BLOOD UREA 45 mg/dL 7-21 H NITROGEN (BEAKER) (test code = 354) CREATININE 2.73 mg/dL 0.57-1.25 H (BEAKER) (test code = 358) GLUCOSE RANDOM 124 mg/dL 70-105 H (BEAKER) (test code = 652) CALCIUM (BEAKER) 8.0 mg/dL 8.4-10.2 L (test code = 697) AST (SGOT) 21 U/L 5-34 (BEAKER) (test code = 353) ALT (SGPT) 10 U/L 6-55 (BEAKER) (test code = 347) EGFR (BEAKER) 26 Interpretatio n of eGFR (test code = 1092) mL/min/1.[address] age Description sq m Result G1 Mary l or high >=90 G2 Mildly decreased 60-89 G3a Mildl y to moderately 45-5 9 G3b Moderately to s everely 30-44 G4 Severl y decreased 15-29 G5 Kidney failure <15Reported eGF R is based on the CKD-EPI 2020 equation that d oes not use a race coefficientEsti mated GFR is not as accur ate as Creatinine Mary echo in predicting glom erular filtration rate . Estimated GFR is not appl icable for dialysis patien ts Rn Neonatal Icu ID - AUTUMN [id number] 04:44:26 Test Item Value Reference Range Interpretation Comments PHOSPHORUS (BEAKER) (test code = 4.6 mg/dL 2.3-4.7 604) Rn Neonatal Icu ID - AUTUMN [id number] 04:44:25 Test Item Value Reference Range Interpretation Comments MAGNESIUM (BEAKER) (test code = 2.2 mg/dL 1.6-2.6 627) Rn Neonatal Icu ID - AUTUMN LCBC W/PLT COUNT & AUTO [id number] 04:26:11 Test Item Value Reference Range Interpretation Comments WHITE BLOOD CELL COUNT (BEAKER) 13.3 K/ L 3.5-10.5 H (test code = 775) RED BLOOD CELL COUNT (BEAKER) 3.43 M/ L 4.63-6.08 L (test code = 761) HEMOGLOBIN (BEAKER) (test code = 7.4 GM/DL 13.7-17.5 L 410) HEMATOCRIT (BEAKER) (test code = 25.8 % 40.1-51.0 L 411) MEAN CORPUSCULAR VOLUME (BEAKER) 75.2 fL 79.0-92.2 L (test code = 753) MEAN CORPUSCULAR HEMOGLOBIN 21.6 pg 25.7-32.2 L (BEAKER) (test code = 751) MEAN CORPUSCULAR HEMOGLOBIN CONC 28.7 GM/DL 32.3-36.5 L (BEAKER) (test code = 752) RED CELL DISTRIBUTION WIDTH 15.4 % 11.6-14.4 H (BEAKER) (test code = 412) PLATELET COUNT (BEAKER) (test 369 K/CU MM 150-450 code = 756) MEAN PLATELET VOLUME (BEAKER) 10.0 fL 9.4-12.4 (test code = 754) NUCLEATED RED BLOOD CELLS 0 /100 WBC 0-0 (BEAKER) (test code = 413) NEUTROPHILS RELATIVE PERCENT 77 % (BEAKER) (test code = 429) LYMPHOCYTES RELATIVE PERCENT 14 % (BEAKER) (test code = 430) MONOCYTES RELATIVE PERCENT 9 % (BEAKER) (test code = 431) EOSINOPHILS RELATIVE PERCENT 0 % (BEAKER) (test code = 432) BASOPHILS RELATIVE PERCENT 0 % (BEAKER) (test code = 437) NEUTROPHILS ABSOLUTE COUNT 10.23 K/ L 1.78-5.38 H (BEAKER) (test code = 670) LYMPHOCYTES ABSOLUTE COUNT 1.84 K/ L 1.32-3.57 (BEAKER) (test code = 414) MONOCYTES ABSOLUTE COUNT (BEAKER) 1.13 K/ L 0.30-0.82 H (test code = 415) EOSINOPHILS ABSOLUTE COUNT 0.01 K/ L 0.04-0.54 L (BEAKER) (test code = 416) BASOPHILS ABSOLUTE COUNT (BEAKER) 0.05 K/ L 0.01-0.08 (test code = 417) IMMATURE GRANULOCYTES-RELATIVE 1 % 0-1 PERCENT (BEAKER) (test code = 2801) POCT-GLUCOSE [id number] 00:12:43 Test Item Value Reference Range Interpretation Comments POC-GLUCOSE METER 135 mg/dL 70-110 H : TESTED A T [facility] 6720 (BEAKER) (test code = [facility], 1538) 19120: Rn Neonatal Icu/Techni franklin ID = [id number] for SAMMIE PETER VONDA POCT-GLUCOSE [id number] 12:49:39 Test Item Value Reference Range Interpretation Comments POC-GLUCOSE METER 125 mg/dL 70-110 H : TESTED A T [facility] 6720 (BEAKER) (test code = [facility], 1538) [id number]: Rn Neonatal Icu/Techni franklin ID = [id number] for Adrienne Fay (CELLAVISION MANUAL DIFF)2022-06-13 07:29:14 Test Item Value Reference Range Interpretation Comments NEUTROPHILS - REL 90 % (CELLAVISION)(BEAKER) (test code = 2816) LYMPHOCYTES - REL 6 % (CELLAVISION)(BEAKER) (test code = 2817) MONOCYTES - REL 4 % (CELLAVISION)(BEAKER) (test code = 2818) NEUTROPHILS - ABS 14.67 K/ul 1.78-5.38 H (CELLAVISION)(BEAKER) (test code = 2830) LYMPHOCYTES - ABS 0.98 K/ul 1.32-3.57 L (CELLAVISION)(BEAKER) (test code = 2831) MONOCYTES - ABS 0.65 K/uL 0.30-0.82 (CELLAVISION)(BEAKER) (test code = 2832) TOTAL COUNTED (BEAKER) (test code 100 = 1351) WBC MORPHOLOGY (BEAKER) (test Normal code = 487) PLT MORPHOLOGY (BEAKER) (test Normal code = 486) POLYCHROMATOPHILLIC RBCS(BEAKER) 1+ few (test code = 478) ANISOCYTOSIS (BEAKER) (test code 2+ moderate = 961) MICROCYTES (BEAKER) (test code = 2+ moderate 965) POIKILOCYTES (BEAKER) (test code 1+ few = 966) ELLIPTOCYTES (BEAKER) (test code 1+ few = 962) OVALOCYTES (BEAKER) (test code = 1+ few 477) ARTIFACT (CELLAVISION)(BEAKER) Present (test code = 3432) PLATELET CONCENTRATION Adequate (CELLAVISION)(BEAKER) (test code = 3438) Rn Neonatal Icu ID - Shirin Shearer comments: Slide comments:CBC W/PLT COUNT & AUTO [id number] 07:29:13 Test Item Value Reference Range Interpretation Comments WHITE BLOOD CELL COUNT (BEAKER) 16.3 K/ L 3.5-10.5 H (test code = 775) RED BLOOD CELL COUNT (BEAKER) 3.52 M/ L 4.63-6.08 L (test code = 761) HEMOGLOBIN (BEAKER) (test code = 7.7 GM/DL 13.7-17.5 L 410) HEMATOCRIT (BEAKER) (test code = 26.1 % 40.1-51.0 L 411) MEAN CORPUSCULAR VOLUME (BEAKER) 74.1 fL 79.0-92.2 L (test code = 753) MEAN CORPUSCULAR HEMOGLOBIN 21.9 pg 25.7-32.2 L (BEAKER) (test code = 751) MEAN CORPUSCULAR HEMOGLOBIN CONC 29.5 GM/DL 32.3-36.5 L (BEAKER) (test code = 752) RED CELL DISTRIBUTION WIDTH 15.3 % 11.6-14.4 H (BEAKER) (test code = 412) PLATELET COUNT (BEAKER) (test 390 K/CU MM 150-450 code = 756) MEAN PLATELET VOLUME (BEAKER) 9.7 fL 9.4-12.4 (test code = 754) NUCLEATED RED BLOOD CELLS 0 /100 WBC 0-0 (BEAKER) (test code = 413) POCT-GLUCOSE [id number] 05:17:39 Test Item Value Reference Range Interpretation Comments POC-GLUCOSE METER 156 mg/dL 70-110 H : TESTED A T [facility] 6720 (BEAKER) (test code = [facility] [place], 1538) [id number]: Rn Neonatal Icu/Techni franklin ID = [id number] for VONDA WILL COMPREHENSIVE METABOLIC [id number] 04:38:17 Test Item Value Reference Range Interpretation Comments TOTAL PROTEIN 5.5 gm/dL 6.0-8.3 L (BEAKER) (test code = 770) ALBUMIN (BEAKER) 2.6 g/dL 3.5-5.0 L (test code = 1145) ALKALINE 66 U/L 40-150 PHOSPHATASE (BEAKER) (test code = 346) BILIRUBIN TOTAL 0.4 mg/dL 0.2-1.2 (BEAKER) (test code = 377) SODIUM (BEAKER) 145 meq/L 136-145 (test code = 381) POTASSIUM (BEAKER) 3.1 meq/L 3.5-5.1 L (test code = 379) CHLORIDE (BEAKER) 114 meq/L 98-107 H (test code = 382) CO2 (BEAKER) (test 22 meq/L 22-29 code = 355) BLOOD UREA 33 mg/dL 7-21 H NITROGEN (BEAKER) (test code = 354) CREATININE 2.03 mg/dL 0.57-1.25 H (BEAKER) (test code = 358) GLUCOSE RANDOM 171 mg/dL 70-105 H (BEAKER) (test code = 652) CALCIUM (BEAKER) 7.9 mg/dL 8.4-10.2 L (test code = 697) AST (SGOT) 18 U/L 5-34 (BEAKER) (test code = 353) ALT (SGPT) 7 U/L 6-55 (BEAKER) (test code = 347) EGFR (BEAKER) 37 Interpretatio n of eGFR (test code = 1092) mL/min/1.[address] age Description sq m Result G1 Mary l or high >=90 G2 Mildly decreased 60-89 G3a Mildl y to moderately 45-5 9 G3b Moderately to s everely 30-44 G4 Severl y decreased 15-29 G5 Kidney failure <15Reported eGF R is based on the CKD-EPI 2020 equation that d oes not use a race coefficientEsti mated GFR is not as accur ate as Creatinine Mary echo in predicting glom erular filtration rate . Estimated GFR is not appl icable for dialysis patien ts Rn Neonatal Icu ID - AUTUMN [id number] 04:36:14 Test Item Value Reference Range Interpretation Comments MAGNESIUM (BEAKER) (test code = 2.0 mg/dL 1.6-2.6 627) Rn Neonatal Icu ID - PICAIT [id number] 04:36:14 Test Item Value Reference Range Interpretation Comments PHOSPHORUS (BEAKER) (test code = 4.4 mg/dL 2.3-4.7 604) Rn Neonatal Icu ID - AUTUMN LSPIN/CONCENTRATION [id number] 01:33:44 Test Item Value Reference Range Interpretation Comments Concentration charged (test code = Done 2656) [facility] [id number] 01:33:44 Test Item Value Reference Range Interpretation Comments Concentration charged (test code = Done 2657) [facility] [id number] 01:33:44 Test Item Value Reference Range Interpretation Comments Concentration charged (test code = Done 2657) [facility] [id number] 01:33:44 Test Item Value Reference Range Interpretation Comments Concentration charged (test code = Done 2656) [facility] [id number] 01:33:44 Test Item Value Reference Range Interpretation Comments Concentration charged (test code = Done 2657) [facility] [id number] 01:33:44 Test Item Value Reference Range Interpretation Comments Concentration charged (test code = Done 2657) [facility]/CONCENTRATION [id number] 01:33:44 Test Item Value Reference Range Interpretation Comments Concentration charged (test code = Done 2657) [facility]/CONCENTRATION [id number] 01:33:44 Test Item Value Reference Range Interpretation Comments Concentration charged (test code = Done 2657) [facility]/CONCENTRATION [id number] 01:33:44 Test Item Value Reference Range Interpretation Comments Concentration charged (test code = Done 2657) [facility]/CONCENTRATION [id number] 01:33:44 Test Item Value Reference Range Interpretation Comments Concentration charged (test code = Done 2657) [facility]/CONCENTRATION [id number] 01:33:44 Test Item Value Reference Range Interpretation Comments Concentration charged (test code = Done 2657) [facility]/CONCENTRATION [id number] 01:33:44 Test Item Value Reference Range Interpretation Comments Concentration charged (test code = Done 2657) [facility]/CONCENTRATION [id number] 01:33:44 Test Item Value Reference Range Interpretation Comments Concentration charged (test code = Done 2657) [facility]/CONCENTRATION [id number] 01:33:44 Test Item Value Reference Range Interpretation Comments Concentration charged (test code = Done 2657) [facility]/CONCENTRATION [id number] 01:33:44 Test Item Value Reference Range Interpretation Comments Concentration charged (test code = Done 2657) [facility]/CONCENTRATION [id number] 01:33:44 Test Item Value Reference Range Interpretation Comments Concentration charged (test code = Done 2657) [facility]/CONCENTRATION [id number] 01:33:44 Test Item Value Reference Range Interpretation Comments Concentration charged (test code = Done 2657) [facility]/CONCENTRATION [id number] 01:33:44 Test Item Value Reference Range Interpretation Comments Concentration charged (test code = Done 2657) [facility]/CONCENTRATION [id number] 01:33:44 Test Item Value Reference Range Interpretation Comments Concentration charged (test code = Done 2657) [facility] [id number] 01:33:44 Test Item Value Reference Range Interpretation Comments CONCENTRATION CHARGED (BEAKER) (test Done code = 2657) POCT-GLUCOSE [id number] 23:54:23 Test Item Value Reference Range Interpretation Comments POC-GLUCOSE METER 196 mg/dL 70-110 H : TESTED A T [facility] 6720 (BEAKER) (test code = [facility], 1538) 44837: Rn Neonatal Icu/Techni franklin ID = [id number] for VONDA WILL RAD, ABDOMEN/KUB, 1 VIEW [id number] 18:20:00Reason for exam:->abdominal distensionS[facility] : 1960 Sex: MFINAL REPORT RAD, ABDOMEN/KUB, 1 VIEW AP INDICATION: abdominal distension COMPARISON: None TECHNIQUE: Limited portable radiograph of the lower chest and upper abdomen was acquired for purposesof evaluating tube placement FINDINGS/IMPRESSION:NG side-port overlies the stomach. Surgical staplesoverlie the midline. Presumed surgical drain overlies the mid pelvis. There is gaseous distention ofmultiple loops of small and large bowel concerning for ileus. Signed: Charisma Leroy Verified Date/Time: 06/12/2022 18:20:52 -GLUCOSE [id number] 17:42:39 Test Item Value Reference Range Interpretation Comments POC-GLUCOSE METER 255 mg/dL 70-110 H : TESTED A T [facility] 6720 (LIZ) (test code = [facility] [place], 1538) 65507: Rn Neonatal Icu/Techni franklin ID = [id number] for Joshua Holland SARS-CoV2/RT-PCR (Asymptomatic ONLY)2022-06-12 16:10:15 Test Item Value Reference Range Interpretation Comments SARS-COV2/RT-PCR Negative Not Detected, (test code = Negative, See 31404-5) external report for linked test SARS-COV-2 [facility] (test code = 77228-0) ELINA (test code = Negative result for this ELINA) test determines that SARS-CoV-2 RNA was not present in the specimen above the Limit of Detection (LOD). However, Negative results do not preclude SARS-CoV-2 infection and should not be used as the sole basis for treatment or patient management decisions. Negative results must be combined with clinical observations, patient history, and epidemiological information. A false negative result may occur if a specimen is improperly collected, transported or handled. A false negative result should be considered if patient's recent exposures or clinical presentation indicate that COVID-19 (SARS-CoV-2) is likely and diagnostic tests for other causes of illness are negative. Re-testing should be considered in cases of suspected false negatives. The limit of detection for this assay is 800 copies/mL. This SARS CoV-2 test is a real-time RT-PCR test intended for the qualitative detection of nucleic acid from SARS-CoV-2 in a nasopharyngeal swab specimen collected from individuals suspected of COVID-19 by their healthcare provider. This test has not been Food and Drug Administration (FDA) cleared or approved. This is a modified version of an approved Emergency Use Authorization (EUA) and is in the process of review by the FDA. Once authorized by the FDA, the issued EUA will be effective until the declaration that circumstances exist justifying the authorization of the emergency use of in vitro diagnostic tests for detection and/or diagnosis of COVID-19 is terminated under Section 564(b)(2) of the Act or the EUA is revoked under Section 564(g) of the Act. Fact Sheet for Healthcare Providers:https://www.[employer]/sites/default/f dedrick/product/documents/F act_Sheet_HC_Providers_L zsb_VYQN-QwR-7.pdf Fact Sheet for Healthcare Patients:https://www.[employer]/sites/default/fi les/product/documents/Fa ct_Sheet_Patients_Ly_S ARS-CoV-2.pdf Performing Laboratory:[facility] [place] [address] [facility]2022-06-12 16:10:15 Test Item Value Reference Range Interpretation Comments SARS-COV2/RT-PCR Negative Not Detected, (test code = Negative, See 74442-2) external report for linked test SARS-COV-2 [facility] (test code = 97667-6) ELINA (test code = Negative result for this ELINA) test determines that SARS-CoV-2 RNA was not present in the specimen above the Limit of Detection (LOD). However, Negative results do not preclude SARS-CoV-2 infection and should not be used as the sole basis for treatment or patient management decisions. Negative results must be combined with clinical observations, patient history, and epidemiological information. A false negative result may occur if a specimen is improperly collected, transported or handled. A false negative result should be considered if patient's recent exposures or clinical presentation indicate that COVID-19 (SARS-CoV-2) is likely and diagnostic tests for other causes of illness are negative. Re-testing should be considered in cases of suspected false negatives. The limit of detection for this assay is 800 copies/mL. This SARS CoV-2 test is a real-time RT-PCR test intended for the qualitative detection of nucleic acid from SARS-CoV-2 in a nasopharyngeal swab specimen collected from individuals suspected of COVID-19 by their healthcare provider. This test has not been Food and Drug Administration (FDA) cleared or approved. This is a modified version of an approved Emergency Use Authorization (EUA) and is in the process of review by the FDA. Once authorized by the FDA, the issued EUA will be effective until the declaration that circumstances exist justifying the authorization of the emergency use of in vitro diagnostic tests for detection and/or diagnosis of COVID-19 is terminated under Section 564(b)(2) of the Act or the EUA is revoked under Section 564(g) of the Act. Fact Sheet for Healthcare Providers:https://www.[employer]/sites/default/f dedrick/product/documents/F act_Sheet_HC_Providers_L zsb_SLZE-HkM-4.pdf Fact Sheet for Healthcare Patients:https://www.[employer]/sites/default/fi les/product/documents/Fa ct_Sheet_Patients_Lyra_S ARS-CoV-2.pdf Performing Laboratory:[facility] [place] [address] [facility] (Asymptomatic ONLY)2022-06-12 16:10:15 Test Item Value Reference Range Interpretation Comments SARS-COV2/RT-PCR Negative Not Detected, (test code = Negative, See 08129-2) external report for linked test SARS-COV-2 [facility] (test code = 22630-4) ELINA (test code = Negative result for this ELINA) test determines that SARS-CoV-2 RNA was not present in the specimen above the Limit of Detection (LOD). However, Negative results do not preclude SARS-CoV-2 infection and should not be used as the sole basis for treatment or patient management decisions. Negative results must be combined with clinical observations, patient history, and epidemiological information. A false negative result may occur if a specimen is improperly collected, transported or handled. A false negative result should be considered if patient's recent exposures or clinical presentation indicate that COVID-19 (SARS-CoV-2) is likely and diagnostic tests for other causes of illness are negative. Re-testing should be considered in cases of suspected false negatives. The limit of detection for this assay is 800 copies/mL. This SARS CoV-2 test is a real-time RT-PCR test intended for the qualitative detection of nucleic acid from SARS-CoV-2 in a nasopharyngeal swab specimen collected from individuals suspected of COVID-19 by their healthcare provider. This test has not been Food and Drug Administration (FDA) cleared or approved. This is a modified version of an approved Emergency Use Authorization (EUA) and is in the process of review by the FDA. Once authorized by the FDA, the issued EUA will be effective until the declaration that circumstances exist justifying the authorization of the emergency use of in vitro diagnostic tests for detection and/or diagnosis of COVID-19 is terminated under Section 564(b)(2) of the Act or the EUA is revoked under Section 564(g) of the Act. Fact Sheet for Healthcare Providers:https://www.[facility]/sites/default/f dedrick/product/documents/F act_Sheet_HC_Providers_L rcw_BYWC-AbF-1.pdf Fact Sheet for Healthcare Patients:https://www.[employer]/sites/default/fi les/product/documents/Fa ct_Sheet_Patients_Lyra_S ARS-CoV-2.pdf Performing Laboratory:[facility] [place] [address] [facility]omatic ONLY)2022-06-12 16:10:15 Test Item Value Reference Range Interpretation Comments SARS-COV2/RT-PCR Negative Not Detected, (test code = Negative, See 18641-4) external report for linked test SARS-COV-2 [facility] (test code = 61407-4) ELINA (test code = Negative result for this ELINA) test determines that SARS-CoV-2 RNA was not present in the specimen above the Limit of Detection (LOD). However, Negative results do not preclude SARS-CoV-2 infection and should not be used as the sole basis for treatment or patient management decisions. Negative results must be combined with clinical observations, patient history, and epidemiological information. A false negative result may occur if a specimen is improperly collected, transported or handled. A false negative result should be considered if patient's recent exposures or clinical presentation indicate that COVID-19 (SARS-CoV-2) is likely and diagnostic tests for other causes of illness are negative. Re-testing should be considered in cases of suspected false negatives. The limit of detection for this assay is 800 copies/mL. This SARS CoV-2 test is a real-time RT-PCR test intended for the qualitative detection of nucleic acid from SARS-CoV-2 in a nasopharyngeal swab specimen collected from individuals suspected of COVID-19 by their healthcare provider. This test has not been Food and Drug Administration (FDA) cleared or approved. This is a modified version of an approved Emergency Use Authorization (EUA) and is in the process of review by the FDA. Once authorized by the FDA, the issued EUA will be effective until the declaration that circumstances exist justifying the authorization of the emergency use of in vitro diagnostic tests for detection and/or diagnosis of COVID-19 is terminated under Section 564(b)(2) of the Act or the EUA is revoked under Section 564(g) of the Act. Fact Sheet for Healthcare Providers:https://www.[facility]/sites/default/f dedrick/product/documents/F act_Sheet_HC_Providers_L vlm_GEHV-DxB-9.pdf Fact Sheet for Healthcare Patients:https://www.[employer]/sites/default/fi les/product/documents/Fa ct_Sheet_Patients_Lyra_S ARS-CoV-2.pdf Performing Laboratory:[facility]/RT-PCR (Asymptomatic ONLY)2022-06-12 16:10:15 Test Item Value Reference Range Interpretation Comments SARS-COV2/RT-PCR Negative Not Detected, (test code = Negative, See 52091-1) external report for linked test SARS-COV-2 [facility] (test code = 91999-6) ELINA (test code = Negative result for this ELINA) test determines that SARS-CoV-2 RNA was not present in the specimen above the Limit of Detection (LOD). However, Negative results do not preclude SARS-CoV-2 infection and should not be used as the sole basis for treatment or patient management decisions. Negative results must be combined with clinical observations, patient history, and epidemiological information. A false negative result may occur if a specimen is improperly collected, transported or handled. A false negative result should be considered if patient's recent exposures or clinical presentation indicate that COVID-19 (SARS-CoV-2) is likely and diagnostic tests for other causes of illness are negative. Re-testing should be considered in cases of suspected false negatives. The limit of detection for this assay is 800 copies/mL. This SARS CoV-2 test is a real-time RT-PCR test intended for the qualitative detection of nucleic acid from SARS-CoV-2 in a nasopharyngeal swab specimen collected from individuals suspected of COVID-19 by their healthcare provider. This test has not been Food and Drug Administration (FDA) cleared or approved. This is a modified version of an approved Emergency Use Authorization (EUA) and is in the process of review by the FDA. Once authorized by the FDA, the issued EUA will be effective until the declaration that circumstances exist justifying the authorization of the emergency use of in vitro diagnostic tests for detection and/or diagnosis of COVID-19 is terminated under Section 564(b)(2) of the Act or the EUA is revoked under Section 564(g) of the Act. Fact Sheet for Healthcare Providers:https://www.[facility]/sites/default/f dedrick/product/documents/F act_Sheet_HC_Providers_L qce_SWNL-CqL-0.pdf Fact Sheet for Healthcare Patients:https://www.[employer]/sites/default/fi les/product/documents/Fa ct_Sheet_Patients_Lyra_S ARS-CoV-2.pdf Performing Laboratory:[facility] [facility] [place] [address] [facility]As[facility]omatic ONLY)2022-06-12 16:10:15 Test Item Value Reference Range Interpretation Comments SARS-COV2/RT-PCR Negative Not Detected, (test code = Negative, See 33683-2) external report for linked test SARS-COV-2 [facility] (test code = 24435-9) ELINA (test code = Negative result for this ELINA) test determines that SARS-CoV-2 RNA was not present in the specimen above the Limit of Detection (LOD). However, Negative results do not preclude SARS-CoV-2 infection and should not be used as the sole basis for treatment or patient management decisions. Negative results must be combined with clinical observations, patient history, and epidemiological information. A false negative result may occur if a specimen is improperly collected, transported or handled. A false negative result should be considered if patient's recent exposures or clinical presentation indicate that COVID-19 (SARS-CoV-2) is likely and diagnostic tests for other causes of illness are negative. Re-testing should be considered in cases of suspected false negatives. The limit of detection for this assay is 800 copies/mL. This SARS CoV-2 test is a real-time RT-PCR test intended for the qualitative detection of nucleic acid from SARS-CoV-2 in a nasopharyngeal swab specimen collected from individuals suspected of COVID-19 by their healthcare provider. This test has not been Food and Drug Administration (FDA) cleared or approved. This is a modified version of an approved Emergency Use Authorization (EUA) and is in the process of review by the FDA. Once authorized by the FDA, the issued EUA will be effective until the declaration that circumstances exist justifying the authorization of the emergency use of in vitro diagnostic tests for detection and/or diagnosis of COVID-19 is terminated under Section 564(b)(2) of the Act or the EUA is revoked under Section 564(g) of the Act. Fact Sheet for Healthcare Providers:https://www.[facility]/sites/default/f dedrick/product/documents/F act_Sheet_HC_Providers_L hxj_HNVL-GwD-4.pdf Fact Sheet for Healthcare Patients:https://www.[employer]/sites/default/fi les/product/documents/Fa ct_Sheet_Patients_Lyra_S ARS-CoV-2.pdf Performing Laboratory:[facility], [place] [address] [place] [address] [place], [place] [address]ARS-CoV2/RT-PCR (Asymptomatic ONLY)2022-06-12 16:10:15 Test Item Value Reference Range Interpretation Comments SARS-COV2/RT-PCR Negative Not Detected, (test code = Negative, See 92679-0) external report for linked test SARS-COV-2 [facility] PERFORMING LAB (test code = 17530-3) ELINA (test code = Negative result for this ELINA) test determines that SARS-CoV-2 RNA was not present in the specimen above the Limit of Detection (LOD). However, Negative results do not preclude SARS-CoV-2 infection and should not be used as the sole basis for treatment or patient management decisions. Negative results must be combined with clinical observations, patient history, and epidemiological information. A false negative result may occur if a specimen is improperly collected, transported or handled. A false negative result should be considered if patient's recent exposures or clinical presentation indicate that COVID-19 (SARS-CoV-2) is likely and diagnostic tests for other causes of illness are negative. Re-testing should be considered in cases of suspected false negatives. The limit of detection for this assay is 800 copies/mL. This SARS CoV-2 test is a real-time RT-PCR test intended for the qualitative detection of nucleic acid from SARS-CoV-2 in a nasopharyngeal swab specimen collected from individuals suspected of COVID-19 by their healthcare provider. This test has not been Food and Drug Administration (FDA) cleared or approved. This is a modified version of an approved Emergency Use Authorization (EUA) and is in the process of review by the FDA. Once authorized by the FDA, the issued EUA will be effective until the declaration that circumstances exist justifying the authorization of the emergency use of in vitro diagnostic tests for detection and/or diagnosis of COVID-19 is terminated under Section 564(b)(2) of the Act or the EUA is revoked under Section 564(g) of the Act. Fact Sheet for Healthcare Providers:https://www.[employer]/sites/default/f dedrick/product/documents/F act_Sheet_HC_Providers_L uhk_JCFI-VvP-7.pdf Fact Sheet for Healthcare Patients:https://www.[employer]/sites/default/fi les/product/documents/Fa ct_Sheet_Patients_Lyra_S ARS-CoV-2.pdf Performing Laboratory:[facility] [place], [place] [id number] [place], [place] [address]ARS-CoV2/RT-PCR (Asymptomatic ONLY)2022-06-12 16:10:15 Test Item Value Reference Range Interpretation Comments SARS-COV2/RT-PCR Negative Not Detected, (test code = Negative, See 08671-1) external report for linked test SARS-COV-2 [facility] PER[facility] (test code = 01278-0) ELINA (test code = Negative result for this ELINA) test determines that SARS-CoV-2 RNA was not present in the specimen above the Limit of Detection (LOD). However, Negative results do not preclude SARS-CoV-2 infection and should not be used as the sole basis for treatment or patient management decisions. Negative results must be combined with clinical observations, patient history, and epidemiological information. A false negative result may occur if a specimen is improperly collected, transported or handled. A false negative result should be considered if patient's recent exposures or clinical presentation indicate that COVID-19 (SARS-CoV-2) is likely and diagnostic tests for other causes of illness are negative. Re-testing should be considered in cases of suspected false negatives. The limit of detection for this assay is 800 copies/mL. This SARS CoV-2 test is a real-time RT-PCR test intended for the qualitative detection of nucleic acid from SARS-CoV-2 in a nasopharyngeal swab specimen collected from individuals suspected of COVID-19 by their healthcare provider. This test has not been Food and Drug Administration (FDA) cleared or approved. This is a modified version of an approved Emergency Use Authorization (EUA) and is in the process of review by the FDA. Once authorized by the FDA, the issued EUA will be effective until the declaration that circumstances exist justifying the authorization of the emergency use of in vitro diagnostic tests for detection and/or diagnosis of COVID-19 is terminated under Section 564(b)(2) of the Act or the EUA is revoked under Section 564(g) of the Act. Fact Sheet for Healthcare Providers:https://www.[facility]/sites/default/f dedrick/product/documents/F act_Sheet_HC_Providers_L gdj_BHRK-NuL-1.pdf Fact Sheet for Healthcare Patients:https://www.[employer]-Mobile/sites/default/fi les/product/documents/Fa ct_Sheet_Patients_Lyra_S ARS-CoV-2.pdf Performing Laboratory:[facility] [place] [address] [facility]2022-06-12 16:10:15 Test Item Value Reference Range Interpretation Comments SARS-COV2/RT-PCR (test Negative Not Detected, Negative, code = 4412462) See external report for linked test SARS-COV-[address] [facility] (test code = 0988847) Negative result for this test determines that SARS-CoV-2 RNA was not present in the specimen above the Limit of Detection (LOD). However, Negative results do not preclude SARS-CoV-2 infection and should not be used as the sole basis for treatment or patient management decisions. Negative results must be combined with clinical observations, patient history, and epidemiological information. A false negative result may occur if a specimen is improperly collected, transported or handled. A false negative result should be considered if patient's recent exposures or clinical presentation indicate that COVID-19 (SARS-CoV-2) is likely and diagnostic tests for other causes of illness are negative. Re-testing should be considered in cases of suspected false negatives.The limit of detection for this assay is 800 copies/mL.This SARS CoV-2 test is a real-time RT-PCR test intended for the qualitative detection of nucleic acid from SARS-CoV-2 in a nasopharyngeal swab specimen collected from individuals suspected of COVID-19 by their healthcare provider.This test has not been Food and Drug Administration (FDA) cleared or approved. This is a modified version of an approved Emergency Use Authorization (EUA) and is in the process of review by the FDA. Once authorized by the FDA, the issued EUA will be effective until the declaration that circumstances exist justifying the authorization of the emergency use ofin vitro diagnostic tests for detection and/or diagnosis of COVID-19 is terminated under Section 564(b)(2) of the Act or the EUA is revoked under Section 564(g) of the Act.Fact Sheet for Healthcare Prov iders:https://www.[employer]/sites/default/files/product/documents/Fact_Sheet_HC _Xchyxkrfl_Sufo_VPXC-QlA-2.pdfFact Sheet for Healthcare Patients:https://www.[employer].com/sites/default/files/product/docume nts/Dgdz_Vugdi_Dyvhjhyj_Vfok_ANRI-KbC-5.pdfPerforming Laboratory:[facility], [place] [id number] METER 2022-06-12 12:31:40 Test Item Value Reference Range Interpretation Comments POC-GLUCOSE METER 260 mg/dL 70-110 H : Notified RN/MD: (LIZ) (test code = TESTED AT [facility] 67[address] 1538) [facility], [address]: Rn Neonatal Icu/Techni franklin ID = [id number] for Po Jumana ling POCT-GLUCOSE [id number] 10:58:25 Test Item Value Reference Range Interpretation Comments POC-GLUCOSE METER 214 mg/dL 70-110 H : TESTED A T [facility] 6720 (BEAKER) (test code = KIKI Ryan [place], [address]) [address]: Rn Neonatal Icu/Techni franklin ID = [id number] for Darci [place]era LACTIC ACID, [id number] 07:52:27 Test Item Value Reference Range Interpretation Comments LACTATE BLOOD VENOUS (2) (BEAKER) 1.13 mmol/L 0.50-2.20 (test code = 2872) Rn Neonatal Icu ID - MANASA [id number] 07:22:59 Test Item Value Reference Range Interpretation Comments PHOSPHORUS (BEAKER) (test code = 5.1 mg/dL 2.3-4.7 H 604) Rn Neonatal Icu ID - MANASA MHEPATIC FUNCTION [id number] 07:22:59 Test Item Value Reference Range Interpretation Comments TOTAL PROTEIN (BEAKER) (test code = 6.4 gm/dL 6.0-8.3 770) ALBUMIN (BEAKER) (test code = 1145) 2.6 g/dL 3.5-5.0 L BILIRUBIN TOTAL (BEAKER) (test code 0.4 mg/dL 0.2-1.2 = 377) BILIRUBIN DIRECT (BEAKER) (test 0.2 mg/dL 0.1-0.5 code = 706) ALKALINE PHOSPHATASE (BEAKER) (test 90 U/L 40-150 code = 346) AST (SGOT) (BEAKER) (test code = 12 U/L 5-34 353) ALT (SGPT) (BEAKER) (test code = 7 U/L 6-55 347) Rn Neonatal Icu ID - MANASA [id number] 07:22:59 Test Item Value Reference Range Interpretation Comments MAGNESIUM (BEAKER) (test code = 1.9 mg/dL 1.6-2.6 627) Rn Neonatal Icu ID - MANASA MBASIC METABOLIC [id number] 07:22:58 Test Item Value Reference Range Interpretation Comments SODIUM (BEAKER) 143 meq/L 136-145 (test code = 381) POTASSIUM 2.8 meq/L 3.5-5.1 L (BEAKER) (test code = 379) CHLORIDE (BEAKER) 109 meq/L 98-107 H (test code = 382) CO2 (BEAKER) 21 meq/L 22-29 L (test code = 355) BLOOD UREA 30 mg/dL 7-21 H NITROGEN (BEAKER) (test code = 354) CREATININE 2.38 mg/dL 0.57-1.25 H (BEAKER) (test code = 358) GLUCOSE RANDOM 207 mg/dL 70-105 H (BEAKER) (test code = 652) CALCIUM (BEAKER) 8.1 mg/dL 8.4-10.2 L (test code = 697) EGFR (BEAKER) 30 Interpretatio n of eGFR (test code = mL/min/1.73 values Stage De scription 1092) sq m Result G1 Mary l or high >=90 G2 Mildly decreased 60-89 G3a Mild ly to moderately 45-5 9 G3b Moderately to s everely 30-44 G4 Severl y decreased 15-29 G5 Kidney failure <15Reported eGF R is based on the CKD-EPI 2020 equation that d oes not use a race coefficientEsti mated GFR is not as accur ate as Creatinine Mary echo in predicting glom erular filtration rate . Estimated GFR is not appl icable for dialysis patien ts Rn Neonatal Icu ID - MANASA MCBC W/PLT COUNT & AUTO [id number] 06:39:23 Test Item Value Reference Range Interpretation Comments WHITE BLOOD CELL COUNT (BEAKER) 15.5 K/ L 3.5-10.5 H (test code = 775) RED BLOOD CELL COUNT (BEAKER) 3.80 M/ L 4.63-6.08 L (test code = 761) HEMOGLOBIN (BEAKER) (test code = 8.4 GM/DL 13.7-17.5 L 410) HEMATOCRIT (BEAKER) (test code = 27.8 % 40.1-51.0 L 411) MEAN CORPUSCULAR VOLUME (BEAKER) 73.2 fL 79.0-92.2 L (test code = 753) MEAN CORPUSCULAR HEMOGLOBIN 22.1 pg 25.7-32.2 L (BEAKER) (test code = 751) MEAN CORPUSCULAR HEMOGLOBIN CONC 30.2 GM/DL 32.3-36.5 L (BEAKER) (test code = 752) RED CELL DISTRIBUTION WIDTH 15.4 % 11.6-14.4 H (BEAKER) (test code = 412) PLATELET COUNT (BEAKER) (test 442 K/CU MM 150-450 code = 756) MEAN PLATELET VOLUME (BEAKER) 9.8 fL 9.4-12.4 (test code = 754) NUCLEATED RED BLOOD CELLS 0 /100 WBC 0-0 (BEAKER) (test code = 413) NEUTROPHILS RELATIVE PERCENT 83 % (BEAKER) (test code = 429) LYMPHOCYTES RELATIVE PERCENT 11 % (BEAKER) (test code = 430) MONOCYTES RELATIVE PERCENT 5 % (BEAKER) (test code = 431) EOSINOPHILS RELATIVE PERCENT 0 % (BEAKER) (test code = 432) BASOPHILS RELATIVE PERCENT 0 % (BEAKER) (test code = 437) NEUTROPHILS ABSOLUTE COUNT 12.85 K/ L 1.78-5.38 H (BEAKER) (test code = 670) LYMPHOCYTES ABSOLUTE COUNT 1.72 K/ L 1.32-3.57 (BEAKER) (test code = 414) MONOCYTES ABSOLUTE COUNT (BEAKER) 0.79 K/ L 0.30-0.82 (test code = 415) EOSINOPHILS ABSOLUTE COUNT 0.00 K/ L 0.04-0.54 L (BEAKER) (test code = 416) BASOPHILS ABSOLUTE COUNT (BEAKER) 0.05 K/ L 0.01-0.08 (test code = 417) IMMATURE GRANULOCYTES-RELATIVE 1 % 0-1 PERCENT (BEAKER) (test code = 2801) POCT-GLUCOSE [id number] 05:04:56 Test Item Value Reference Range Interpretation Comments POC-GLUCOSE METER 222 mg/dL 70-110 H : TESTED A T [facility] 6720 (BEAKER) (test code = [facility], 1538) [address]: Rn Neonatal Icu/Techni franklin ID = [id number] for VONDA WILL POCT-GLUCOSE [id number] 01:41:02 Test Item Value Reference Range Interpretation Comments POC-GLUCOSE METER 218 mg/dL 70-110 H : TESTED A T [facility] 6720 (BEAKER) (test code = [facility], 1538) [address]: Rn Neonatal Icu/Techni franklin ID = [id number] for VONDA WILL BASIC METABOLIC [id number] 23:34:20 Test Item Value Reference Range Interpretation Comments SODIUM (BEAKER) 141 meq/L 136-145 (test code = 381) POTASSIUM 2.8 meq/L 3.5-5.1 L (BEAKER) (test code = 379) CHLORIDE (BEAKER) 107 meq/L 98-107 (test code = 382) CO2 (BEAKER) 23 meq/L 22-29 (test code = 355) BLOOD UREA 28 mg/dL 7-21 H NITROGEN (BEAKER) (test code = 354) CREATININE 2.32 mg/dL 0.57-1.25 H (BEAKER) (test code = 358) GLUCOSE RANDOM 209 mg/dL 70-105 H (BEAKER) (test code = 652) CALCIUM (BEAKER) 7.8 mg/dL 8.4-10.2 L (test code = 697) EGFR (BEAKER) 31 Interpretatio n of eGFR (test code = mL/min/1.73 values Stage De scription 1092) sq m Result G1 Mary l or high >=90 G2 Mildly decreased 60-89 G3a Mildl y to moderately 45-5 9 G3b Moderately to s everely 30-44 G4 Severl y decreased 15-29 G5 Kidney failure <15Reported eGF R is based on the CKD-EPI 2020 equation that d oes not use a race coefficientEsti mated GFR is not as accur ate as Creatinine Mary echo in predicting glom erular filtration rate . Estimated GFR is not appl icable for dialysis patien ts Rn Neonatal Icu ID - [facility] (HEMOGRAM ONLY)2022-06-11 22:46:51 Test Item Value Reference Range Interpretation Comments WHITE BLOOD CELL COUNT (BEAKER) 15.0 K/ L 3.5-10.5 H (test code = 775) RED BLOOD CELL COUNT (BEAKER) 3.86 M/ L 4.63-6.08 L (test code = 761) HEMOGLOBIN (BEAKER) (test code = 8.6 GM/DL 13.7-17.5 L 410) HEMATOCRIT (BEAKER) (test code = 27.6 % 40.1-51.0 L 411) MEAN CORPUSCULAR VOLUME (BEAKER) 71.5 fL 79.0-92.2 L (test code = 753) MEAN CORPUSCULAR HEMOGLOBIN 22.3 pg 25.7-32.2 L (BEAKER) (test code = 751) MEAN CORPUSCULAR HEMOGLOBIN CONC 31.2 GM/DL 32.3-36.5 L (BEAKER) (test code = 752) RED CELL DISTRIBUTION WIDTH 15.4 % 11.6-14.4 H (BEAKER) (test code = 412) PLATELET COUNT (BEAKER) (test 451 K/CU MM 150-450 H code = 756) MEAN PLATELET VOLUME (BEAKER) 9.4 fL 9.4-12.4 (test code = 754) NUCLEATED RED BLOOD CELLS 0 /100 WBC 0-0 (BEAKER) (test code = 413)
[2022-11-26 17:36] LABS: Magnesium 1.8 mg/dL (1.6-2.4)
[2022-11-26 17:39] LABS: Potassium 6.1 mmol/L (3.5-5.1)
[2022-11-26] MEDS ORDERED: D50W 25 GM/50 ML SYRINGE IV ONE ×2 (18:12→23:52)
[2022-11-26] MEDS ORDERED: INSULIN -REGULAR HUMAN 50 UNIT/0.5 ML ML ONE (18:14)
[2022-11-26] MEDS ORDERED: SOD POLYSTYREN SUL 15 GM/60 ML UCUP ONE (18:15)
[2022-11-26 18:55] LABS: SARS-CoV-2 Antigen Rapid Res Negative (Negative)
--- NOTE | 2022-11-26 18:59 | P.HP ---
Certification for Inpatient Patient admitted to: Observation With expected LOS: <2 Midnights Patient will require the following post-hospital care: None Practitioner: I am a practitioner with admitting privileges, knowledge of patient current condition, hospital course, and medical plan of care. Services: Services provided to patient in accordance with Admission requirements found in Title 42 Section 412.3 of the Code of Federal Regulations Patient History Date of Service: 11/26/22 Primary Care Provider: Cyndie Reason for admission: Hyperkalemia, UTI History of Present Illness: Patient is a 62 year old male with past medical history of colon cancer s/p colon resection with colostomy, hypertension, and type 2 diabetes who was sent to the emergency department with abnormal lab results- elevated potassium. BMP revealed potassium 6.1, chloride 115, CO2 15, BUN 28, creatinine 2.43, glucose 210. Mildly peaked T waves noted on EKG. He was given kayexalate, D50, insulin, and sodium bicarb in the emergency department. Patient is asymptomatic and has no complaints. ED provider wishes to admit patient for further management. Allergies No Known Allergies Allergy (Unverified 11/26/22 19:42) Home medications list reviewed: Yes Home Medications: Fluconazole [Diflucan] 100 mg PO DAILY 11/26/22 Metoprolol Tartrate [Lopressor] 100 mg PO BID 11/26/22 cephALEXin [Cephalexin] 250 mg PO BID 11/26/22 - Past Medical/Surgical History Diabetic: Yes -: Type 2 Diabetes -: Hypertension -: Colon Cancer -: Cholecystectomy -: Colectomy with colostomy -: Exploratory Laparatomy Psychosocial/ Personal History: Patient is . - Family History Family History: Reviewed- Non-Contributory - Social History Smoking Status: Never smoker Alcohol use: No CD- Drugs: No Caffeine use: Yes Place of Residence: Home Review of Systems Unremarkable Physical Examination - Vital Signs Temperature: 98.8 F Blood Pressure: 176/93 Pulse: 83 Respirations: 18 Pulse Ox (%): 100 - Physical Exam General: Alert, In no apparent distress HEENT: Atraumatic, EOMI, Sclerae nonicteric Neck: Supple, 2+ carotid pulse no bruit Respiratory: Clear to auscultation bilaterally, Normal air movement Cardiovascular: Regular rate/rhythm, Normal S1 S2 Gastrointestinal: Normal bowel sounds, Soft and benign, No tenderness, Other (Ostomy) Musculoskeletal: No tenderness Integumentary: No rashes Neurological: Normal speech, Normal affect - Studies Laboratory Data (last 24 hrs) 11/26/22 16:34: Sodium 137, Potassium 6.1 H*, BUN 38 H, Creatinine 2.43 H, Glucose 210 H, Magnesium 1.8 Assessment and Plan - Problems (Diagnosis) (1) Hyperkalemia Current Visit: Yes Status: Acute (2) CARSON (acute kidney injury) Current Visit: Yes Status: Acute (3) Hypertension Current Visit: Yes Status: Chronic Qualifiers: Hypertension type: primary hypertension Qualified Code(s): I10 - Essential (primary) hypertension (4) Type 2 diabetes mellitus Current Visit: Yes Status: Chronic Qualifiers: Diabetes mellitus exterminator insulin use: without longterm use Diabetes mellitus complication status: with hyperglycemia Qualified Code(s): E11.65 - Type 2 diabetes mellitus with hyperglycemia (5) Colon cancer Current Visit: Yes Status: Chronic Qualifiers: Colon location: unspecified part of colon Qualified Code(s): C18.9 - Malignant neoplasm of colon, unspecified - Plan Patient is admitted for further management of hyperkalemia, CARSON. Received kayexalate, insulin, D50, and sodium bicarb in ED. Check BMP q6h. Patient is asymptomatic. IV hydration for CARSON. Consult nephrology. Glucose management with insulin sliding scale. Monitor and replete electrolytes per protocol. Reconcile and continue home medications. Full code. Discharge Plan: Home Plan to discharge in: 24 Hours - Advance Directives Does patient have a Living Will: No Does patient have a Durable POA for Healthcare: No - Code Status/Comfort Care Code Status Assessed: Yes Code Status: Full Code Physician Review: Patient Assessed, Agree with Above Assessment and Plan Critical Care: No Time Spent Managing Pts Care (In Minutes): 50
[2022-11-26] MEDS ORDERED: ONDANSETRON 4 MG/2 ML VIAL IV PRN (19:42)
[2022-11-26] MEDS ORDERED: ACETAMINOPHEN 500 MG TAB PO PRN (19:42)
[2022-11-26] MEDS: INSULIN -REGULAR HUMAN 50 UNIT/0.5 ML ML SQ SCH (21:00)
[2022-11-26] MEDS: NA CHLORIDE 0.9% 1,000 ML IV SCH (21:05)
[2022-11-26 21:32] VITALS: BMI 21.4
[2022-11-26 22:24] VITALS: O2SAT 100
[2022-11-26 23:46] LABS: Potassium 5.9 mmol/L (3.5-5.1)
[2022-11-26] MEDS ORDERED: ALBUTEROL 2.5 MG/3 ML NEB SOL NEB ONE (23:49)
[2022-11-26] MEDS ORDERED: CALCIUM GLUC 10% INJ 9.3 MEQ in NA CHLORIDE 0.9% 100 ML IV ONE (23:49)
[2022-11-26] MEDS ORDERED: NA CHLORIDE 0.9% 1,000 ML IV ONE (23:49)
[2022-11-26] MEDS ORDERED: INSULIN -REGULAR HUMAN 50 UNIT/0.5 ML ML IV ONE (23:50)
[2022-11-26] MEDS ORDERED: SOD POLYSTYREN SUL 15 GM/60 ML UCUP PO ONE (23:52)
[2022-11-26] MEDS ORDERED: D10W 125 ML IV PRN (23:55)
[2022-11-27] MEDS ORDERED: CALCIUM GLUCONATE 1 GM IVPB 2 GM/100 ML BAG IV ONE (00:15)
[2022-11-27 03:48] LABS: Absolute Lymphocytes (CBC) 1.9 K/uL (0.7-4.9); Lymphocytes % 17.2 % (15.3-44.8); MCV 75.2 fL (80-100); MPV 6.9 fL (7.6-11.3); RBC Red Blood Cell Count 3.46 M/uL (4.33-5.43)
[2022-11-27 04:06] LABS: Magnesium 1.7 mg/dL (1.6-2.4); Potassium 5.4 mmol/L (3.5-5.1)
[2022-11-27 04:37] LABS: Platelet Estimate INCR; White Blood Cell Scan OK (OK)
[2022-11-27 04:38] LABS: Anisocytosis 1+; Blood Morphology Comment NOTED (NOT SEEN); Ovalocytes 1+
[2022-11-27] MEDS ORDERED: MAGNESIUM SULFATE 1 gm IVPB 1 GM/100 ML BAG IV ONE (06:00)
[2022-11-27] MEDS: INSULIN -REGULAR HUMAN 50 UNIT/0.5 ML ML SQ SCH ×4 (07:30→20:32)
[2022-11-27] MEDS: NA CHLORIDE 0.9% 1,000 ML IV SCH (10:54)
[2022-11-27] MEDS: HYDRALAZINE HCL 20 MG/ML VIAL IV PRN (14:02)
[2022-11-27] MEDS: METOPROLOL TAR 50 MG TAB PO SCH ×2 (14:02→20:29)
--- NOTE | 2022-11-27 14:08 | P.PN ---
Subjective Date of Service: 11/27/22 Primary Care Provider: Cyndei Chief Complaint: Hyperkalemia, UTI Patient denies any complaint. Potassium level improved but patient noted to be acidotic. He reports changing his colostomy bag 3 times last night. Physical Examination - Vital Signs Temperature: 97.4 F Blood Pressure: 191/97 Pulse: 66 Respirations: 18 Pulse Ox (%): 100 - Studies Laboratory Data (last 24 hrs) 11/26/22 16:34: Sodium 137, Potassium 6.1 H*, BUN 38 H, Creatinine 2.43 H, Glucose 210 H, Magnesium 1.8 Assessment And Plan - Current Problems (Diagnosis) (1) Metabolic acidosis Current Visit: Yes Status: Acute (2) CARSON (acute kidney injury) Current Visit: Yes Status: Acute (3) Hyperkalemia Current Visit: Yes Status: Acute (4) Colon cancer Current Visit: Yes Status: Chronic Qualifiers: Colon location: unspecified part of colon Qualified Code(s): C18.9 - Malignant neoplasm of colon, unspecified (5) Hypertension Current Visit: Yes Status: Chronic Qualifiers: Hypertension type: primary hypertension Qualified Code(s): I10 - Essential (primary) hypertension (6) Type 2 diabetes mellitus Current Visit: Yes Status: Chronic Qualifiers: Diabetes mellitus chcf insulin use: without chcf use Diabetes mellitus complication status: with hyperglycemia Qualified Code(s): E11.65 - Type 2 diabetes mellitus with hyperglycemia - Plan Physical Exam General: Alert, In no apparent distress HEENT: Sclerae nonicteric Neck: Supple, no elevated JVD. Respiratory: Clear to auscultation bilaterally, Normal air movement Cardiovascular: Regular rate/rhythm, Normal S1 S2 Gastrointestinal: Normal bowel sounds, Soft and benign, No tenderness, colostomy. Musculoskeletal: No tenderness Integumentary: No rashes Neurological: Normal speech, Normal affect, no focal motor deficit. Plan: Hyperkalemia likely related to metabolic acidosis. Hydrate with bicarb solution Nephrology consult Monitor renal function Potassium level is improved. Continue to monitor. Diet as tolerated. Resume metoprolol for hypertension Hydralazine as needed for BP spike. Continue other home medications-fluconazole. Monitor and replete other electrolytes-magnesium and phosphorus as needed. Insulin sliding scale for glucose management.
[2022-11-27] MEDS: WATER FOR INJ,STERILE 1,000 ML with NA BICARB 8.4% 100 MEQ IV SCH ×2 (15:00)
--- NOTE | 2022-11-27 16:56 | CON ---
Date of Consultation: 11/27/2022 Reason For Consultation: Acute renal failure with hyperkalemia. History Of Present Illness: Mr. Song is a 62-year-old gentleman with recent diagnosis of colon cancer , status post colon resection with colostomy, hypertension, and type 2 diabetes, was sent to the [facility] department with abnormal lab results with elevated potassium. He states that he was just relea sed from [facility] after getting colostomy and he was discharged on Sandoval cathet er secondary to urinary retention. He states that he was just finishing a course of antibiotics and was scheduled to get his Sandoval catheter removed on Tuesday. He feels very well at this time and denie s any acute issues. Upon evaluation in the emergency room, he was found to have mildly peaked T-wave s and he was given Kayexalate to manage his hyperkalemia and has been admitted for further evaluation with IV fluids. Past Medical History: Significant for history of type 2 diabetes, hypertension, colon cancer, cholec ystectomy, colectomy with colostomy placement, exploratory laparotomy. Home Medications: Included cephalexin, metoprolol, and fluconazole. Social History: The patient is . No history of smoking or alcohol use reported. Review of Systems: Denies any chest pain, shortness of breath. Denies any NSAID use. All other review of systems are n egative. Physical Examination: Vital Signs: At this time are showing temperature of 97.4, pulse rate of 66, respiratory rate of 18, and blood pressure 150/77. General: He appears in no acute distress. HEENT: Shows atraumatic head. Lungs: Clear to auscultation. Abdomen: Soft and nontender. Colostomy bag was noted. The patient has dressing on the right lower quadrant where a JESSICA drain was noted to be placed previously. He has a Sandoval catheter in place with g ood amount of urine. Current Medications: Include Tylenol p.r.n. for pain. Calcium gluconate was given for managing the hyperkalemia. He is getting normal saline at 100 cc an hour and hydralazine p.r.n. for hypertension. Laboratory Data: At this time are showing sodium of 141, potassium of 5.4, BUN of 37, and creatinine improving to 2.2. CBC showing hemoglobin of 8.1, hematocrit of 26, and platelet count of 389, WBC c ount of 11,000. His urinalysis has not been done and blood cultures are also not being done. Home medications have been reviewed in detail. Impression: 1.Acute renal failure, etiology unclear at this time. I am not sure if we have the entire list of h is home medications. I suspect he may have been on Bactrim for urinary tract infection. At this justin e, his renal failure is nonoliguric and he seems to be doing okay. I will continue his IV fluids and monitor renal function closely. 2.Hyperkalemia, being managed conservatively, improving with Kayexalate. 3.Colon cancer, status post colon resection and colostomy. Continue colostomy care. 4.Hypertension. The patient is not on any scheduled medications for hypertension. He is restarted back on metoprolol, could consider adding amlodipine to improve his blood pressure. Avoid CLAIRE inhibi tors any ARBs at this time. Plan: Overall, the patient is clinically stable, hemodynamically stable. Continue gentle IV hydrati on and monitor potassium closely. We will get detailed list of home medications. His diabetes is ma naged with insulin sliding scale. Thank you very much for this consultation. Please do not hesitate to call us with any questions or c oncerns. VV/MODL Voice ID: [id number] Report ID: [id number]
[2022-11-27 19:29] LABS: Specific Gravity 1.008 (1.005-1.030); Urine Bacteria <20 /HPF (<20); Urine Bilirubin NEGATIVE (Negative); Urine Blood 3+ (OVER) (Negative); Urine Clarity Extremely Turbid (Clear); Urine Color Light-Orange (Yellow); Urine Glucose NEGATIVE (Negative); Urine Mucus 1+ /HPF (None Seen); Urine Protein 2+ (Negative); Urine RBC >50 /HPF (None Seen); Urine Urobilinogen Normal (Normal); Urine WBC Clump Many /HPF (None Seen); Urine pH 5.5 (5.0-7.0)
[2022-11-28 04:13] LABS: Absolute Lymphocytes (CBC) 2.2 K/uL (0.7-4.9); Hematocrit 25.9 % (39.6-49.0); Lymphocytes % 25.7 % (15.3-44.8); MCV 74.3 fL (80-100); MPV 7.1 fL (7.6-11.3); RBC Red Blood Cell Count 3.49 M/uL (4.33-5.43)
[2022-11-28 04:25] LABS: Potassium 5.5 mmol/L (3.5-5.1)
[2022-11-28] MEDS: WATER FOR INJ,STERILE 1,000 ML with NA BICARB 8.4% 100 MEQ IV SCH ×4 (05:19→20:57)
[2022-11-28] MEDS: INSULIN -REGULAR HUMAN 50 UNIT/0.5 ML ML SQ SCH ×4 (07:25→20:58)
--- NOTE | 2022-11-28 07:56 | RAD REPORT ---
EXAM DESCRIPTION: US - Renal Ultrasound-Complete - 11/28/2022 7:08 am CLINICAL HISTORY: acute renal failure Flank pain COMPARISON: Abdomen 1 View (KUB) dated 06/11/2022; Abdomen Pelvis Wo Contrast dated 06/11/2022 FINDINGS: Both kidneys appear echogenic. Small benign cysts are present bilaterally. The right kidney measures 11.3 x 5.9 x 5.6 cm. No hydronephrosis. The left kidney measures 13.3 x 6.0 x 5.5 cm. No hydronephrosis. The urinary bladder is incompletely distended without gross abnormality seen. Sandoval catheter may be i n place. IMPRESSION: Moderate bilateral echogenic kidneys compatible with medical renal disease. No significant hydronephrosis.
[2022-11-28] MEDS: METOPROLOL TAR 50 MG TAB PO SCH ×2 (08:28→20:57)
[2022-11-28] MEDS: FLUCONAZOLE 100 MG TAB PO SCH (08:29)
[2022-11-28] MEDS: CEFTRIAXONE 1,000 MG in NA CHLORIDE 0.9% 50 ML IVPB SCH (15:00)
--- NOTE | 2022-11-28 15:43 | PN ---
Date of Progress Note: 11/28/2022 Subjective: Patient was seen and examined at bedside. He denies any other complaints. Objective: Vital Signs: Have been reviewed and blood pressures are running in the 150s to 160s rang e. General: He appears in no acute distress. Lungs: Clear. Abdomen: Soft. Extremities: Without any evidence of edema. He has a colostomy bag in place and Sandoval catheter in p lace. Laboratory Data: Showing improving WBC count. Hemoglobin, hematocrit, and platelet count are stable . His urine cultures are still pending. Current Medications: Include an hour. He is on fluconazole 100 mg daily, Impression: 1.Acute renal failure, etiology likely secondary to acute tubular necrosis. Currently with improvin g renal function. Creatinine is improving to 1.9 from 2.4. Continue hydration and monitor. 2.Metabolic acidosis with hyperkalemia. Continue sterile water with 100 mEq of sodium bicarbonate. 3.Urinary tract infection. Urinalysis is suggestive of urinary tract infection. Given acute renal failure, we will go ahead and start him on Rocephin with 1 g Rocephin daily to improve his urinary tr act infection and remove Sandoval catheter as tolerated. 4.Colon cancer. Continue to monitor. Colostomy bag and wound care. VV/MODL Voice ID: [id number] Report ID: [id number]
--- NOTE | 2022-11-28 16:08 | P.PN ---
Subjective Date of Service: 11/28/22 Primary Care Provider: Cyndie Chief Complaint: Hyperkalemia, UTI Patient denies any complaint today. He denies any change in stool frequency. No recorded fever. Physical Examination - Vital Signs Temperature: 97.2 F Blood Pressure: 165/83 Pulse: 66 Respirations: 16 Pulse Ox (%): 100 Assessment And Plan - Current Problems (Diagnosis) (1) Metabolic acidosis Current Visit: Yes Status: Acute (2) CARSON (acute kidney injury) Current Visit: Yes Status: Acute (3) Hyperkalemia Current Visit: Yes Status: Acute (4) Colon cancer Current Visit: Yes Status: Chronic Qualifiers: Colon location: unspecified part of colon Qualified Code(s): C18.9 - Malignant neoplasm of colon, unspecified (5) Hypertension Current Visit: Yes Status: Chronic Qualifiers: Hypertension type: primary hypertension Qualified Code(s): I10 - Essential (primary) hypertension (6) Type 2 diabetes mellitus Current Visit: Yes Status: Chronic Qualifiers: Diabetes mellitus termite treater insulin use: without termite treater use Diabetes mellitus complication status: with hyperglycemia Qualified Code(s): E11.65 - Type 2 diabetes mellitus with hyperglycemia (7) Acute cystitis with hematuria Current Visit: Yes Status: Acute - Plan Physical Exam General: Alert, In no apparent distress HEENT: Sclerae nonicteric Neck: Supple, no elevated JVD. Respiratory: Clear to auscultation bilaterally, Normal air movement Cardiovascular: Regular rate/rhythm, Normal S1 S2 Gastrointestinal: Normal bowel sounds, Soft and benign, No tenderness, colostomy. Musculoskeletal: No tenderness Integumentary: No rashes Neurological: Normal speech, Normal affect, no focal motor deficit. Plan: Hyperkalemia likely related to metabolic acidosis. Nephrology input appreciated. Continue bicarb solution Monitor renal function Potassium level is improving. Diet as tolerated. UA suggest UTI. Patient started on IV Rocephin. Continue home antihypertensives. Hydralazine as needed for BP spike. Continue other home medications-fluconazole. Monitor and replete other electrolytes-magnesium and phosphorus as needed. Insulin sliding scale for glucose management.
[2022-11-28] MEDS: HYDRALAZINE HCL 20 MG/ML VIAL IV PRN (23:35)
[2022-11-29 03:24] LABS: Absolute Lymphocytes (CBC) 2.4 K/uL (0.7-4.9); Hematocrit 25.6 % (39.6-49.0); Lymphocytes % 27.2 % (15.3-44.8); MCV 73.5 fL (80-100); MPV 7.4 fL (7.6-11.3); RBC Red Blood Cell Count 3.48 M/uL (4.33-5.43)
[2022-11-29] MEDS: INSULIN -REGULAR HUMAN 50 UNIT/0.5 ML ML SQ SCH (07:30)
[2022-11-29 08:18] VITALS: BP 144/77; TEMP 97.7
[2022-11-29] MEDS: METOPROLOL TAR 50 MG TAB PO SCH (08:28)
[2022-11-29] MEDS: FLUCONAZOLE 100 MG TAB PO SCH (08:29)
[2022-11-29] MEDS: CEFTRIAXONE 1,000 MG in NA CHLORIDE 0.9% 50 ML IVPB SCH (08:29)
--- NOTE | 2022-11-29 08:59 | P.DS ---
Admission Date: 11/26/22 Discharge Date: 11/29/22 Primary Care Provider: Cyndie Disposition: ROUTINE DISCHARGE Discharge Condition: FAIR Reason for Admission: Hyperkalemia, UTI - Problems (1) Metabolic acidosis Status: Acute (2) CARSON (acute kidney injury) Status: Acute (3) Hyperkalemia Status: Acute (4) Colon cancer Status: Chronic Qualifiers: Colon location: unspecified part of colon Qualified Code(s): C18.9 - Malignant neoplasm of colon, unspecified (5) Hypertension Status: Chronic Qualifiers: Hypertension type: primary hypertension Qualified Code(s): I10 - Essential (primary) hypertension (6) Type 2 diabetes mellitus Status: Chronic Qualifiers: Diabetes mellitus termite inspector insulin use: without termite inspector use Diabetes mellitus complication status: with hyperglycemia Qualified Code(s): E11.65 - Type 2 diabetes mellitus with hyperglycemia (7) Acute cystitis with hematuria Status: Acute Brief History of Present Illness: Patient is a 62 year old male with past medical history of colon cancer s/p colon resection with colostomy, hypertension, and type 2 diabetes who was sent to the emergency department with hyperkalemia. BMP revealed potassium 6.1, chloride 115, CO2 15, BUN 28, creatinine 2.43, glucose 210. Mildly peaked T waves noted on EKG. He was given kayexalate, D50, insulin, and sodium bicarb in the emergency department. Patient was asymptomatic and had no complaints. Patient admitted for further management. Hospital Course: Patient admitted to the medical floor. Noted to have metabolic acidosis likely related to GI fluid loss. She was started on bicarb drip. He was seen by nephrology who assisted with management. Patient was asymptomatic during the hospital stay, metabolic acidosis and hyperkalemia improved. Patient tolerated diet. Colostomy output has been loose. Patient vitals are stable, hyperkalemia resolved. He is deemed clinically stable for discharge. Patient discharged with oral bicarb replacement per nephrology recommendation. Vital Signs/Physical Exam: Temp Pulse Resp BP Pulse Ox 97.7 F 79 14 144/77 H 97 11/29/22 08:00 11/29/22 08:00 11/29/22 08:00 11/29/22 08:00 11/29/22 08:00 General: Alert, In no apparent distress, Oriented x3 HEENT: Mucous membr. moist/pink Neck: JVD not distended Respiratory: Clear to auscultation bilaterally, Normal air movement Cardiovascular: No edema, Regular rate/rhythm, Normal S1 S2 Gastrointestinal: Soft and benign, Non-distended, Other (Colostomy) Musculoskeletal: No swelling Integumentary: No rashes, No cyanosis Neurological: Normal strength at 5/5 x4 extr Laboratory Data at Discharge: WBC 8.90 K/uL (4.3-10.9) 11/29/22 02:52 Hgb 8.2 g/dL (13.6-17.9) L 11/29/22 02:52 Hct 25.6 % (39.6-49.0) L 11/29/22 02:52 Plt Count 327 K/uL (152-406) 11/29/22 02:52 Sodium 140 mmol/L (136-145) 11/29/22 02:52 Potassium 5.0 mmol/L (3.5-5.1) 11/29/22 02:52 BUN 29 mg/dL (7-18) H 11/29/22 02:52 Creatinine 1.95 mg/dL (0.70-1.30) H 11/29/22 02:52 Glucose 95 mg/dL (74-106) 11/29/22 02:52 Phosphorus 5.0 mg/dL (2.5-4.9) H 11/27/22 03:27 Magnesium 1.7 mg/dL (1.6-2.4) 11/27/22 03:27 Home Medications: Fluconazole [Diflucan] 100 mg PO DAILY 11/26/22 Metoprolol Tartrate [Lopressor*] 100 mg PO BID 11/26/22 cephALEXin [Cephalexin] 250 mg PO BID 11/26/22 Sodium Bicarbonate 650 mg PO BID #60 tab 11/29/22 New Medications: Sodium Bicarbonate 650 mg PO BID #60 tab Followup: Lincoln Cullen DO [Primary Care Provider] - 1 Week
[2022-11-29] MEDS ORDERED: SODIUM BICARB 325 MG TAB PO SCH (10:30)
--- NOTE | 2022-11-29 11:28 | P.PN ---
Date of Service: 11/29/22 Vital Signs Temp Pulse Resp BP Pulse Ox 97.7 F 79 14 144/77 H 97 11/29/22 08:00 11/29/22 08:00 11/29/22 08:00 11/29/22 08:00 11/29/22 08:00 Medications Acetaminophen (Acetaminophen 500 Mg Tab) 1,000 mg PO Q6H PRN PRN Reason: Pain scale 2-4 (Mild) Fluconazole (Fluconazole 100 Mg Tab) 100 mg PO DAILY [facility]; Protocol Last Admin: 11/29/22 08:29 Dose: 100 mg Hydralazine HCl (Hydralazine Hcl 20 Mg/Ml Vial) 10 mg IV Q6HP PRN PRN Reason: Titrate to SBP (MUST DEFINE) Last Admin: 11/28/22 23:35 Dose: 10 mg Dextrose (Dextrose 10% Water Iv Soln.) 125 mls @ 0 mls/hr IV PRN PRN; Protocol PRN Reason: HYPOGLYCEMIA Last Admin: 11/27/22 00:15 Dose: 125 mls Insulin Human Regular (Insulin -Regular Human 50 Unit/0.5 Ml Ml) 0 unit SQ ACHS [facility]; Protocol Last Admin: 11/29/22 07:30 Dose: Not Given Metoprolol Tartrate (Metoprolol Tar 50 Mg Tab) 100 mg PO BID [facility] Last Admin: 11/29/22 08:28 Dose: 100 mg Ondansetron HCl (Ondansetron 4 Mg/2 Ml Vial) 4 mg IV Q6HP PRN PRN Reason: NAUSEA / VOMITING Sodium Bicarbonate (Sodium Bicarb 325 Mg Tab) [facility] Last Admin: 11/29/22 10:54 Dose: 650 mg Sodium Chloride (Flush Normal Saline 10 Ml) 10 ml IV BID [facility] Last Admin: 11/29/22 08:29 Dose: 10 ml Assessment/ Plan: Nephrology No dyspnea No chest pain Feeling better and wants to go home No acute events overnight Vitals, medications, blood work and imaging reviewed in the chart NAD. NCAT. MMM. Normal respiratory effort. RRR. Abd ND. No C/C. LE Edema none. AAO. Normal speech. Colostomy Stage I CARSON, improving CKD IIIb with proteinuria -No NSAIDs Hyperkalemia, resolved -Low potassium diet Metabolic Acidosis -DC IVF -Start sodium bicarb 650mg BID Urinary Retention -Maintain goldberg -Follow up with urology Microcytic Anemia -Monitor H&H -Consider iron supplementation Case reviewed with Dr. Whittington
--- NOTE | 2022-11-29 13:12 | EKG ---
Test Date: 2022-11-26 Test Time: 15:43:11 Framing And Hanging: WU MEASUREMENT RESULTS: Intervals: Rate: 80 AK: 112 QRSD: 92 QT: 388 QTc: 447 [place]: P: 78 AK: 112 QRS: 88 T: 72 INTERPRETIVE STATEMENTS: Normal sinus rhythm Normal ECG Compared to ECG 09/15/2001 13:28:00 No significant changes Electronically Signed On 11-29-22 13:06:40 CDT by Harley Zavaleta
== END 2022-11-29 12:02 | disposition home or self-care (01) ==
LOC: ER 15:02 → ERHOLD 18:55 → 2ND 19:40
PROVIDERS: ADMIT Internal Medicine; ATTEND Internal Medicine
DX: E87.21 Acute metabolic acidosis (principal); N17.9 Acute kidney failure, unspecified; E87.5 Hyperkalemia; C18.9 Malignant neoplasm of colon, unspecified; N30.01 Acute cystitis with hematuria; N18.32 Chronic kidney disease, stage 3b; R33.9 Retention of urine, unspecified; D50.9 Iron deficiency anemia, unspecified; Z93.3 Colostomy status
CPT/HCPCS: 36415; 76770; 80048; 80069; 81001; 82947; 83735; 85025; 87086; 87088; 87811; 93005; 94640; 96374; 96375; 99285; J0360; J0610; J1815; J3475; J7030; J7613

== ENCOUNTER 2024-05-11 15:29 | Inpatient (IN) | payer BC, SELFPAY ==
[2024-05-11] MEDS ORDERED: NA CHLORIDE 0.9% 1,000 ML ONE (16:04)
[2024-05-11 16:53] LABS: Absolute Basophils 0.1 K/uL (0-0.5); Absolute Eosinophils 0.1 K/uL (0-0.5); Absolute Lymphocytes (CBC) 1.2 K/uL (0.7-4.9); Absolute Monocytes 0.8 K/uL (0.1-1.3); Absolute Neutrophil 9.4 K/uL (1.8-8.0); Basophils % 0.7 % (0-1.3); Eosinophils % 0.9 % (0-4.4); Hematocrit 22.7 % (39.6-49.0); Lymphocytes % 10.4 % (15.3-44.8); MCH 28.5 pg (27.0-35.0); MCHC 30.9 g/dL (32.0-36.0); MCV 92.3 fL (80-100); MPV 9.3 fL (7.6-11.3); Monocytes % 7.2 % (3.3-12.3); Neutrophils % 80.8 % (41.7-73.7); Nucleated Red Blood Cells % 0.1 % (0-0); Platelets 251 thou/uL (152-406); RBC Red Blood Cell Count 2.46 M/uL (4.33-5.43); Red Cell Distribution Width 15.4 % (12.1-15.2)
[2024-05-11 16:56] LABS: PT Prothrombin Time 11.4 SECONDS (9.4-12.5); PTT, Activated Partial Thromb 34.3 SECONDS (24.3-36.9); Protime INR 1.02
--- NOTE | 2024-05-11 17:06 | RAD REPORT ---
EXAM DESCRIPTION: RAD - Chest Single View - 05/11/2024 4:54 pm CLINICAL HISTORY: SOB Chest pain. COMPARISON: Abdomen 1 View (KUB) dated 06/11/2022 FINDINGS: Portable technique limits examination quality. The lungs are grossly clear. The heart is normal in size. No displaced fractures. IMPRESSION: No acute intrathoracic process suspected.
[2024-05-11 17:12] LABS: ALT/SGPT < 14 U/L (16-61); AST/SGOT < 10 U/L (15-37); Albumin 3.2 g/dL (3.4-5.0); Albumin/Globulin Ratio 0.7 (1.1-1.8); Alkaline Phosphatase 79 U/L (45-117); Anion Gap 21.9 mEq/L (5.0-15.0); BUN Blood Urea Nitrogen 135 mg/dL (7-18); Bilirubin Total 0.3 mg/dL (0.2-1.0); Globulin 4.5 g/dL (2.3-3.5); Glomerular Filtration Rate 2 ml/min (=/>90); Glucose Level 135 mg/dL (74-106); Potassium 3.9 mEq/L (3.5-5.1); Protein, Total 7.7 g/dL (6.4-8.2); Sodium Level 139 mEq/L (136-145)
[2024-05-11 17:14] LABS: Bicarbonate 9 mEq/L (21-32)
--- NOTE | 2024-05-11 17:59 | RAD REPORT ---
EXAM DESCRIPTION: CT - Chest Abd Pelvis Wo Con - 05/11/2024 5:37 pm CLINICAL HISTORY: Chest and abdomen pain. anemia, renal failure, stark COMPARISON: Renal Ultrasound-Complete dated 11/28/2022; Abdomen Pelvis Wo Contrast dated 06/11/2022 TECHNIQUE: Limited noncontrast study performed. All CT scans are performed using dose optimization technique as appropriate and may include automated exposure control or mA/KV adjustment according to patient size. FINDINGS: The lungs are clear.No pleural or pericardial effusion.No intrathoracic adenopathy.Dilatat ion of the esophagus. The liver, spleen, pancreas, adrenal glands are within normal limits. Both kidneys have an abnormal a ppearance but assessment is limited due to lack contrast. No bowel obstruction, free air, free fluid or abscess. Postsurgical changes about the colon. No path ologic lymphadenopathy in the abdomen or pelvis. No worrisome osseous finding. IMPRESSION: No acute findings seen.
--- NOTE | 2024-05-11 18:42 | ER ---
Nurse's Notes [facility] Name: Catalino Song Age: 63 yrs Sex: Male : 1960 Arrival Date: 05/11/2024 Time: 15:29 Bed 6 Private MD: Diagnosis: Acute kidney failure, unspecified Presentation: 05/11 15:37 Chief complaint: Patient's son or daughter states: decreased appetite with generalized kc6 weakness x3 weeks. Coronavirus screen: At this time, the client does not indicate any symptoms associated with coronavirus-19. Ebola Screen: No symptoms or risks identified at this time. Initial Sepsis Screen: Does the patient meet any 2 criteria? HR > 90 bpm. Does the patient have a suspected source of infection? No. Patient's initial sepsis screen is negative. Risk Assessment: Do you want to hurt yourself or someone else? Patient reports no desire to harm self or others. Onset of symptoms was May 11, 2024. 15:37 Method Of Arrival: Wheelchair kc6 15:37 Acuity: CARLA 3 kc6 Triage Assessment: 15:42 General: Appears in no apparent distress. comfortable, well groomed, well developed, kc6 Behavior is calm, cooperative, appropriate for age, Reports feeling ill for > 3 days, fatigue for >3 days. Pain: Denies pain. EENT: No signs and/or symptoms were reported regarding the EENT system. Neuro: Level of Consciousness is awake, alert, obeys commands, Oriented to person, place, time, situation, Appropriate for age Reports weakness. Cardiovascular: Capillary refill < 3 seconds. Respiratory: Airway is patent Trachea midline Respiratory effort is even, unlabored, Respiratory pattern is regular, symmetrical. GI: Colostomy site is clean and dry. Ostomy appliance is intact. Reports intolerance of fluids, intolerance of food, nausea, vomiting, Patient currently denies abdominal pain, diarrhea. : No signs and/or symptoms were reported regarding the genitourinary system. Derm: No signs and/or symptoms reported regarding the dermatologic system. Skin is intact, is healthy with good turgor, Skin is pink, warm \T\ dry. Musculoskeletal: No signs and/or symptoms reported regarding the musculoskeletal system. Circulation, motion, and sensation intact. Capillary refill < 3 seconds, Range of motion: intact in all extremities. Historical: - Allergies: 15:39 No Known Allergies; kc6 - PMHx: 15:39 colon cancer; diabetes mellitus; Hypertensive disorder; kc6 - PSHx: 15:39 Colostomy; kc6 - Immunization history:: Adult Immunizations not up to date. - Infectious Disease History:: Denies. - Social history:: Smoking status: Patient denies any tobacco usage or history of. Screenin:[address] [facility] ED Fall Risk Assessment (Adult) History of falling in the last 3 months, tm6 including since admission No falls in past 3 months (0 pts) Confusion or Disorientation No (0 pts) Intoxicated or Sedated No (0 pts) Impaired Gait No (0 pts) Mobility Assist Device Used No (0 pt) Altered Elimination No (0 pt) Score/Fall Risk Level 0 - 2 = Low Risk Oriented to surroundings, Maintained a safe environment, Educated pt \T\ family on fall prevention, incl call for assistance when getting out of bed. Abuse screen: Denies threats or abuse. Denies injuries from another. Nutritional screening: No deficits noted. Tuberculosis screening: No symptoms or risk factors identified. Assessment: 16:32 General: Appears in no apparent distress. Behavior is calm, cooperative. Pain: Denies tm6 pain. Neuro: Level of Consciousness is awake, alert, obeys commands, Oriented to person, place, time, situation. Cardiovascular: Patient's skin is warm and dry. Rhythm is sinus tachycardia. Respiratory: Airway is patent Respiratory effort is even, unlabored, Respiratory pattern is regular, symmetrical. GI: Reports anorexia, nausea, vomiting. GI: Abdomen is flat, non-distended, Abd is soft and non tender X 4 quads. : No signs and/or symptoms were reported regarding the genitourinary system. EENT: No signs and/or symptoms were reported regarding the EENT system. Derm: No signs and/or symptoms reported regarding the dermatologic system. Musculoskeletal: Reports general weakness. 19:10 Reassessment: ASSUMED CARE OF PT. PT LYING IN BED. DAUGHTER AT BEDSIDE. INFORMED PT jj7 THEY WILL BE GETTING A LOPEZ CATHETER TO MEASURE URINARY OUTPUT. LOPEZ INSERTED BY DESIGN ASSISTANT. PT TOLERATED WELL. ORDERED MEDS GIVEN AND CHARTED IN MEDICTECH. General: Appears in no apparent distress. comfortable, Behavior is calm, cooperative, appropriate for age. Pain: Denies pain. Neuro: Level of Consciousness is awake, alert, obeys commands, Oriented to person, place, time, situation. Vital Signs: 15:37 BP 119 / 59; Pulse 110; Resp 18 S; Temp 98.1(O); Pulse Ox 100% on R/A; Weight 65.77 kg kc6 (R); Height 5 ft. 8 in. (R); Pain 0/10; 16:34 BP 157 / 71; Pulse 100; Pulse Ox 100% on R/A; tm6 17:49 Pulse 98; Pulse Ox 100% on R/A; tm6 17:52 BP 141 / 62; tm6 19:30 BP 164 / 81; Pulse 101; Resp 19; Pulse Ox 100% ; jj7 20:35 BP 155 / 76; Pulse 101; Resp 13; Pulse Ox 100% ; jj7 15:37 Body Mass Index 22.05 (65.77 kg, 172.72 cm) kc6 15:37 Pain Scale: Adult kc6 ED Course: 15:34 Patient arrived in ED. ra3 15:35 Bridgette Estrada PA-C is PHCP. sb4 15:35 Devin Gregory MD is Attending Physician. sb4 15:39 Triage completed. kc6 15:39 Arm band placed on. kc6 16:20 First set of blood cultures drawn by me. zm 16:25 Delfino Breen, RN is Primary Nurse. tm6 16:25 EKG done, by ED staff, reviewed by Delfino Breen RN. tm6 16:34 Patient has correct armband on for positive identification. Placed in gown. Bed in low tm6 position. Call light in reach. Side rails up X2. Provided Education on: use of call purvis. Client placed on continuous cardiac and pulse oximetry monitoring. NIBP monitoring applied. awake overnight monitor on. Pulse ox on. NIBP on. Door closed. Noise minimized. Warm blanket given. Pillow given. 16:35 Initial lab(s) drawn, by me, sent to lab. Second set of blood cultures drawn. Inserted zm saline lock: 20 gauge in right forearm, using aseptic technique. Blood collected. Flushed with 10 mL NS. 16:41 Blood Culture Adult (2) Sent. zm 16:41 CBC with Diff Sent. zm 16:41 CMP Sent. zm 16:41 Lactate w/ 2H reflex if indic. Sent. zm 16:41 Protime (+inr) Sent. zm 16:41 Ptt, Activated Sent. zm 16:56 Chest Single View XRAY In Process Unspecified. EDMS 17:37 CT Chest Abdomen Pelvis W/O Contrast In Process Unspecified. EDMS 18:41 Abad Hernandez MD is Hospitalizing Provider. sb4 19:26 UAM Sent. rv1 19:26 Lopez cath inserted, using sterile technique, 18 Fr., by id, balloon inflated, to rv1 gravity drainage, urine specimen collected. returned clear yellow urine. Patient tolerated well. 20:05 No provider procedures requiring assistance completed. Patient admitted, IV remains in j7 place. Administered Medications: 16:49 Drug: NS 0.9% IV 1000 ml IV at 1 bolus Per protocol; 1000 mL bolus Route: IV; Rate: 1 tm6 bolus; Site: right forearm; 18:14 Follow up: Response: No adverse reaction; IV Status: Infusion continued; IV Intake: tm6 1000ml 18:43 Follow up: Response: No adverse reaction; IV Status: Completed infusion; IV Intake: tm6 1000ml Medication: 16:34 VIS not applicable for this client. tm6 Intake: 18:14 IV: 1000ml; Total: 1000ml. tm6 18:43 IV: 1000ml; Total: 2000ml. tm6 Outcome: 18:42 Decision to Hospitalize by Provider. sb4 19:55 Admitted to Med/surg room 408, Report called to SBAR FAXED TO 4TH FLOOR RECEIVED BY ying PARISI RN 19:55 Condition: good 20:56 Patient left the ED. [facility] Signatures: Dispatcher [employer] EDMS Micaela Carrera Kaitlyn, RN RN kc6 Patricia Leal RN RN Bridgette Sanchez, PA-C PA-C sb4 Leonor Villa rv1 Delfino Breen RN RN tm6 Teena Juarez ra3 Corrections: (The following items were deleted from the chart) 15:44 15:37 Initial Sepsis Screen: Does the patient meet any 2 criteria? HR > 90 bpm. Does kc6 the patient have a suspected source of infection? No. Patient's initial sepsis screen is negative. [facility] 15:46 15:42 GI: Reports intolerance of fluids, intolerance of food, nausea, vomiting, Patient kc6 currently denies abdominal pain, diarrhea, kc6 16:41 16:41 Urinalysis+U.LAB.BRZ drawn and sent. zm EDMS
--- NOTE | 2024-05-11 18:42 | EDPHYS ---
Physician Documentation [facility] Name: Catalino Song Age: 63 yrs Sex: Male : 1960 Arrival Date: 05/11/2024 Time: 15:29 Bed 6 Private MD: ED Physician Devin Gregory HPI: 05/11 16:22 This 63 yrs old Male presents to ER via Wheelchair with complaints of sb4 Decreased Appetite - d5cipgh, Vomiting. 16:22 patient states that he has felt weak and unsteady on his feet for a week or so. family sb4 states that he has not been eating or drinking as much and seems to get short of breath on exertion. he reports history of colon cancer in which he had resection with ostomy 2.5 years ago. he has not followed up in regard to his diagnosis. he does endorse some nausea but denies any abdominal pain or changes in his stool. Historical: - Allergies: 15:39 No Known Allergies; kc6 - PMHx: 15:39 colon cancer; diabetes mellitus; Hypertensive disorder; kc6 - PSHx: 15:39 Colostomy; kc6 - Immunization history:: Adult Immunizations not up to date. - Infectious Disease History:: Denies. - Social history:: Smoking status: Patient denies any tobacco usage or history of. ROS: 16:26 Cardiovascular: Negative for chest pain, palpitations, and edema, sb4 16:26 Constitutional: Positive for fatigue, malaise, poor PO intake, 16:26 Eyes: 16:26 Respiratory: Positive for dyspnea on exertion, 16:26 Abdomen/GI: Positive for nausea, 16:26 Neuro: Positive for weakness, 16:26 All other systems are negative, Exam: 16:26 Head/Face: Normocephalic, atraumatic. Eyes: Extra-ocular motions intact. Periorbital sb4 areas with no swelling, redness, or edema. ENT: Mucous membranes moist. Cardiovascular: Regular rate and rhythm with a normal S1 and S2. Respiratory: Lungs have equal breath sounds bilaterally, clear to auscultation and percussion. No rales, rhonchi or wheezes noted. No increased work of breathing, no retractions or nasal flaring. Skin: Warm, dry with normal turgor. Normal color with no rashes, no lesions, and no evidence of cellulitis. 16:26 Constitutional: The patient appears in no acute distress, alert, awake, 16:26 Abdomen/GI: Inspection: abdomen appears normal, ostomy LLQ intact with soft brown stool output, Bowel sounds: normal, Palpation: abdomen is soft and non-tender, Vital Signs: 15:37 BP 119 / 59; Pulse 110; Resp 18 S; Temp 98.1(O); Pulse Ox 100% on R/A; Weight 65.77 kg kc6 (R); Height 5 ft. 8 in. (R); Pain 0/10; 16:34 BP 157 / 71; Pulse 100; Pulse Ox 100% on R/A; tm6 17:49 Pulse 98; Pulse Ox 100% on R/A; tm6 17:52 BP 141 / 62; tm6 19:30 BP 164 / 81; Pulse 101; Resp 19; Pulse Ox 100% ; jj7 20:35 BP 155 / 76; Pulse 101; Resp 13; Pulse Ox 100% ; jj7 15:37 Body Mass Index 22.05 (65.77 kg, 172.72 cm) kc6 15:37 Pain Scale: Adult kc6 MDM: 15:39 Patient medically screened. sb4 18:21 Management of patient was discussed with the following: Emotional Disabilities Teacher: Dr. Flores, will see sb4 patient in ED STAT. 18:41 Data reviewed: vital signs, nurses notes, lab test result(s), radiologic studies, I sb4 have discussed the patient's presentation/case with the attending Emergency Department Physician; and as a result, I will admit patient. Consideration of Admission/Observation Patient was admitted/placed on observation. Counseling: I had a detailed discussion with the patient and/or guardian regarding the historical points, exam findings, and any diagnostic results supporting the discharge/admit diagnosis, the presence of at least one elevated blood pressure reading (>120/80) during this emergency department visit, lab results, radiology results, the need for further work-up and treatment in the hospital. 05/11 15:53 Order name: Blood Culture Adult (2) 4 05/11 15:53 Order name: CBC with Diff; Complete Time: 17:02 sb4 05/11 15:53 Order name: CMP; Complete Time: 17:16 sb4 05/11 15:53 Order name: Lactate w/ 2H reflex if indic.; Complete Time: 17:03 sb4 05/11 15:53 Order name: Protime (+inr); Complete Time: 17:02 sb4 05/11 15:53 Order name: Ptt, Activated; Complete Time: 17:02 sb4 05/11 17:23 Order name: UAM; Complete Time: 19:58 sb4 05/11 18:48 Order name: Renal Panel EDMS 05/11 18:58 Order name: Uric Acid EDMS 05/11 18:59 Order name: Creatine Phosphokinase EDMS 05/11 18:59 Order name: Renal Panel EDMS 05/11 18:59 Order name: Renal Panel EDMS 05/11 18:59 Order name: Renal Panel EDMS 05/11 18:59 Order name: Renal Panel EDMS 05/11 18:59 Order name: Renal Panel EDMS 05/11 18:59 Order name: Renal Panel EDMS 05/11 18:59 Order name: CBC with Automated Diff EDMS 05/11 18:59 Order name: CBC with Automated Diff EDMS 05/11 18:59 Order name: CBC with Automated Diff EDMS 05/11 18:59 Order name: CBC with Automated Diff EDMS 05/11 18:59 Order name: CBC with Automated Diff EDMS 05/11 18:59 Order name: CBC with Automated Diff EDMS 05/11 19:00 Order name: Urinalysis w/ reflexes EDMS 05/11 19:00 Order name: Comprehensive Metabolic Panel EDMS 05/11 19:00 Order name: Comprehensive Metabolic Panel EDMS 05/11 15:53 Order name: Chest Single View XRAY; Complete Time: 17:11 sb4 05/11 17:23 Order name: CT Chest Abdomen Pelvis W/O Contrast; Complete Time: 18:01 sb4 05/11 15:53 Order name: Accucheck; Complete Time: 16:41 sb4 05/11 15:53 Order name: Cardiac monitoring; Complete Time: 16:35 sb4 05/11 15:53 Order name: IV Saline Lock - Large Bore; Complete Time: 16:41 sb4 05/11 15:53 Order name: Labs collected and sent; Complete Time: 16:41 sb4 05/11 15:53 Order name: O2 Per Protocol; Complete Time: 16:35 sb4 05/11 15:53 Order name: O2 Sat Monitoring; Complete Time: 16:35 sb4 05/11 15:53 Order name: Vital Signs; Complete Time: 16:35 sb4 05/11 18:20 Order name: Jaime; Complete Time: 19:26 sb4 EC:41 Rate is 101 beats/min. Rhythm is regular, Sinus tachycardia. MI interval is normal at sb4 126 msec. QRS interval is normal at 96 msec. QT interval is normal at 382 msec. No Q waves. T waves are Normal. No ST changes noted. Clinical impression: Sinus tachycardia and No evidence of ischemia. Interpreted by me. Reviewed by me. Administered Medications: 16:49 Drug: NS 0.9% IV 1000 ml IV at 1 bolus Per protocol; 1000 mL bolus Route: IV; Rate: 1 tm6 bolus; Site: right forearm; 18:14 Follow up: Response: No adverse reaction; IV Status: Infusion continued; IV Intake: tm6 1000ml 18:43 Follow up: Response: No adverse reaction; IV Status: Completed infusion; IV Intake: tm6 1000ml Disposition Summary: 05/11/24 18:42 Hospitalization Ordered Notes: Hospitalization Status: Inpatient Admission sb4 Provider: Abad Hernandez sb4 [facility] sb4 Condition: Serious sb4 Problem: new sb4 Symptoms: are unchanged sb4 Bed/Room Type: Standard sb4 Room Assignment: 408(05/11/24 19:25) sp Diagnosis - Acute kidney failure, unspecified sb4 Forms: - Medication Reconciliation Form sb4 - SBAR form sb4 - Leadership Thank You Letter sb4 Addendum: 05/13/2024 19:47 Co-signature as Attending Physician, Devin Gregory MD I reviewed the patient's care r t provided by the Advanced Practice Provider and agree with the diagnosis and treatment plan. Signatures: Dispatcher [employer] EDTeresa Pool Kaitlyn RN RN [email or web address] Bridgette Estrada PA-C PAScottC sb4 Devin Gregory MD MD rt Delfino Breen RN RN [email or web address] Corrections: (The following items were deleted from the chart) 05/11 15:54 15:54 BLOOD CULTURE*+BA.LAB.BRZ ordered. EDMS EDMS 15:54 15:54 CBC+H.LAB.BRZ ordered. EDMS EDMS 15:54 15:54 COMPREHENSIVE METABOLIC PANEL+C.LAB.BRZ ordered. EDMS EDMS 15:54 15:54 LACTATE+C.LAB.BRZ ordered. EDMS EDMS 15:54 15:54 PROTIME (+INR)+COAG.LAB.BRZ ordered. EDMS EDMS 15:54 15:54 PTT, ACTIVATED+COAG.LAB.BRZ ordered. EDMS EDMS 15:54 15:54 Chest Single View+RAD.RAD.BRZ ordered. EDMS EDMS 16:41 15:54 Urinalysis+U.LAB.BRZ ordered. EDMS EDMS 19:25 18:42 sb4 sp
[2024-05-11] MEDS ORDERED: ACETAMINOPHEN 325 MG TABLET PO PRN (18:54)
--- NOTE | 2024-05-11 18:54 | P.HP ---
Certification for Inpatient Patient admitted to: Inpatient With expected LOS: >2 Midnights Practitioner: I am a practitioner with admitting privileges, knowledge of patient current condition, hospital course, and medical plan of care. Services: Services provided to patient in accordance with Admission requirements found in Title 42 Section 412.3 of the Code of Federal Regulations Patient History Date of Service: 05/11/24 Reason for admission: Elevated RFT History of Present Illness: 63 yrs old Male with past medical history of colon cancer status post colectomy and colostomy placement, diabetes, hypertension, CKD who came to ER with generalized weakness and fatigue that and decreased appetite and nausea and vomiting. Symptoms has been going on for the last 3 weeks and has been progressively getting worse. He has felt weak and unsteady on his feet for a week , states that he has not been eating or drinking as much and seems to get short of breath on exertion. Patient was assessed in the ER and was found to have acute kidney injury with a creatinine more than 20 and was admitted for further management Allergies No Known Allergies Allergy (Unverified 11/26/22 19:42) Home medications list reviewed: Yes Home Medications: Sodium Bicarbonate 650 mg PO BID #60 tab 11/29/22 Docusate Sodium 100 mg PO DAILY 05/11/24 Furosemide 20 mg PO BID 05/11/24 - Past Medical/Surgical History Diabetic: Yes Past Medical History: Reviewed- Non-Contributory -: Type 2 Diabetes -: Hypertension -: Colon Cancer Past Surgical History: Reviewed- Non-Contributory -: Cholecystectomy -: Colectomy with colostomy -: Exploratory Laparatomy Psychosocial/ Personal History: Patient is . - Family History Family History: Reviewed- Non-Contributory - Social History Smoking Status: Never smoker Alcohol use: No CD- Drugs: No Caffeine use: Yes Review of Systems 10-point ROS is otherwise unremarkable Physical Examination - Vital Signs Temperature: 97 F Blood Pressure: 166/72 Pulse: 98 Respirations: 18 Pulse Ox (%): 95 - Physical Exam General: Alert, In no apparent distress, Oriented x3 HEENT: Atraumatic, Normocephalic Neck: Supple, 2+ carotid pulse no bruit Respiratory: Clear to auscultation bilaterally, Normal air movement Cardiovascular: Normal pulses, Regular rate/rhythm, Normal S1 S2 Capillary refill: <2 Seconds Gastrointestinal: Soft and benign, W/out hepatosplenomegaly Musculoskeletal: No clubbing, No swelling Integumentary: No rashes, No breakdown Neurological: Normal speech, Normal strength at 5/5 x4 extr, Cranial nerves 3-12 intact, Normal reflexes 2+ Lymphatics: No axilla or inguinal lymphadenopathy - Studies Laboratory Data (last 24 hrs) 05/11/24 05/11/24 05/11/24 16:35 16:35 16:35 WBC 11.70 H Hgb 7.0 L Hct 22.7 L Plt Count 251 PT 11.4 INR 1.02 APTT 34.3 Sodium 139 Potassium 3.9 BUN 135 H Creatinine 21.70 H Glucose 135 H Total Bilirubin 0.3 AST < 10 L ALT < 14 L Alkaline Phosphatase 79 Assessment and Plan - Plan Acute kidney injury on CKD stage II Monitor renal parameters Nephrology consulted Started on IV hydration Monitor electrolytes and replace accordingly Metabolic acidosis Creatinine of 21.7 with anion gap of 21.9 Started on sodium bicarb drip Monitor anion gap Hypertension Antihypertensives titrated Continue home medications and titrate as needed Hyperlipidemia Continue statin Diabetes Insulin sliding scale Accu-Chek before every meal and at bedtime Anemia of chronic disease Monitor H&H closely No overt bleeding at this time GI/DVT prophylaxis Advanced directive full code - Advance Directives Does patient have a Living Will: No Does patient have a Durable POA for Healthcare: No
--- NOTE | 2024-05-11 18:56 | P.CNS ---
Date of Consult: 05/11/24 Reason for Consult: ARF Requesting Physician: Devin Gregory Chief Complaint: Weakness, loss of appetite, nausea, reduced UOP History of Present Illness: Pt is a 63 yo male with a hx of rectal mass finding in late Sep after p resenting with constipation and distention and underwent colectomy and colostomy placement but per reports pt did not follow up for adjuvant chemotherapy. He has had poor f/u since but was admitted here in early with renal dysfunction and was seen by our group briefly then. Pt over the past few weeks has had increased lethargy, weakness, loss of appetite, nausea and fall(s). He has had some re duced UOP. He is not taking any meds. He denies increased ostomy losses. Allergies No Known Allergies Allergy (Unverified 11/26/22 19:42) Home Medications: Fluconazole [Diflucan] 100 mg PO DAILY 11/26/22 Metoprolol Tartrate [Lopressor*] 100 mg PO BID 11/26/22 cephALEXin [Cephalexin] 250 mg PO BID 11/26/22 Sodium Bicarbonate 650 mg PO BID #60 tab 11/29/22 - Past Medical/Surgical History Diabetic: Yes -: Type 2 Diabetes -: Hypertension -: Colon Cancer -: Hx of renal insufficiency -: Cholecystectomy -: Colectomy with colostomy -: Exploratory Laparatomy Psychosocial/ Personal History: Patient is . - Social History Alcohol use: No CD- Drugs: No Caffeine use: Yes Review of Systems General: Weakness, As per HPI Eyes: Unremarkable ENT: Unremarkable Respiratory: Unremarkable Cardiovascular: Unremarkable Gastrointestinal: As per HPI Genitourinary: As per HPI Musculoskeletal: As per HPI Integumentary: Unremarkable Neurological: Weakness, As per HPI Physical Examination General: Other (Pale, chronically ill appearing) HEENT: Atraumatic, Normocephalic Neck: Supple Respiratory: Clear to auscultation bilaterally, Normal air movement Cardiovascular: No edema, Regular rate/rhythm, Normal S1 S2, Other (Cardiac murmur noted) Gastrointestinal: Soft and benign, Non-distended, Other (Lt sided ostomy) Musculoskeletal: No swelling, No contractures, No tenderness Integumentary: No rashes Neurological: Other (Awake, able to converse, no tremors or myoclonus noted) Laboratory Data (last 24 hrs) 05/11/24 05/11/24 05/11/24 16:35 16:35 16:35 WBC 11.70 H Hgb 7.0 L Hct 22.7 L Plt Count 251 PT 11.4 INR 1.02 APTT 34.3 Sodium 139 Potassium 3.9 BUN 135 H Creatinine 21.70 H Glucose 135 H Total Bilirubin 0.3 AST < 10 L ALT < 14 L Alkaline Phosphatase 79 Conclusions/Impression: A/P) 1. Sub acute Stage III ARF per ANGELICA definition on underlying CKD, possibly Stage IIIB with prior u/s showing preserved renal sizes but echogenic kidneys. ARF in the setting of presumed vol depletion, ostomy losses, other leading to likely ATN given severity of renal failure. CT imaging does not show hydro. 2. K level is ok and pt is not obtunded although he does have some early uremic symptoms. Will closely monitor response to IVF hydration over the next 12h, if he is oligoanuric and if metab profile does not improve, will proceed with HD for clearance. Pt/family provide verbal consent 3. Will request goldberg for strict I/Os 4. Severe AG metab acidosis with large deficit, will push amp of bicarb and place on gtt 5. Will check uric acid and CPK 6. Avoid nephrotoxins and dose meds for reduced CrCl Rocky Flores MD, JW
[2024-05-11] MEDS ORDERED: SODIUM BICARB 50 MEQ/50ML VIAL ONE (19:11)
[2024-05-11] MEDS: SODIUM BICARB 50 MEQ/50ML VIAL IV ONE (19:35)
[2024-05-11] MEDS: D5W 1,000 ML with NA BICARB 8.4% 150 MEQ IV SCH (19:35)
[2024-05-11 19:54] LABS: Specific Gravity 1.014 (1.005-1.030); Sqamous Epithelial None Seen /HPF (None Seen); Urine Bacteria <20 /HPF (<20); Urine Bilirubin NEGATIVE (Negative); Urine Blood 3+ (Negative); Urine Clarity Extremely Turbid (Clear); Urine Color Light-Yellow (Yellow); Urine Crystals Unidentified Few /HPF (None Seen); Urine Culture Reflex Order REFLEXED; Urine Glucose NEGATIVE (Negative); Urine Ketones NEGATIVE (Negative); Urine Micro Reflex YN NO BILL MICROSCOPIC; Urine Mucus Slight /HPF (None Seen); Urine Nitrite NEGATIVE (Negative); Urine Protein 2+ (Negative); Urine RBC 21-50 /HPF (None Seen); Urine Urobilinogen Normal (Normal); Urine WBC >50 /HPF (<5); Urine Yeast (Budding) Few /HPF (None Seen); Urine pH 5.5 (5.0-7.0)
[2024-05-11] MEDS: HEPARIN 5000 UNIT/ML 1 ML VIAL SQ SCH (22:11)
[2024-05-11 23:06] VITALS: BMI 22.0
[2024-05-11 23:34] LABS: Albumin 2.7 g/dL (3.4-5.0); Anion Gap 21.3 mEq/L (5.0-15.0); Potassium 3.3 mEq/L (3.5-5.1); Uric Acid 8.5 mg/dL (3.5-7.2)
[2024-05-11 23:46] LABS: Phosphorus 10.4 mg/dL (2.5-4.9)
[2024-05-12 06:37] LABS: Absolute Basophils 0.1 K/uL (0-0.5); Absolute Eosinophils 0.1 K/uL (0-0.5); Absolute Lymphocytes (CBC) 1.5 K/uL (0.7-4.9); Absolute Monocytes 1.2 K/uL (0.1-1.3); Absolute Neutrophil 7.2 K/uL (1.8-8.0); Basophils % 0.6 % (0-1.3); Eosinophils % 1.4 % (0-4.4); Hematocrit 17.4 % (39.6-49.0); Lymphocytes % 14.5 % (15.3-44.8); MCH 29.9 pg (27.0-35.0); MCHC 33.1 g/dL (32.0-36.0); MCV 90.5 fL (80-100); MPV 9.6 fL (7.6-11.3); Monocytes % 11.6 % (3.3-12.3); Neutrophils % 71.9 % (41.7-73.7); Nucleated Red Blood Cells % 0.1 % (0-0); Platelets 196 thou/uL (152-406); RBC Red Blood Cell Count 1.93 M/uL (4.33-5.43); Red Cell Distribution Width 15.3 % (12.1-15.2)
[2024-05-12 06:50] LABS: Hemoglobin 5.8 g/dL (13.6-17.9)
[2024-05-12 07:31] LABS: ALT/SGPT < 14 U/L (16-61); AST/SGOT < 10 U/L (15-37); Albumin 2.7 g/dL (3.4-5.0); Albumin/Globulin Ratio 0.8 (1.1-1.8); Alkaline Phosphatase 64 U/L (45-117); Anion Gap 19.8 mEq/L (5.0-15.0); BUN Blood Urea Nitrogen 168 mg/dL (7-18); Bicarbonate 11 mEq/L (21-32); Bilirubin Total 0.3 mg/dL (0.2-1.0); Globulin 3.5 g/dL (2.3-3.5); Glucose Level 107 mg/dL (74-106); Magnesium 1.5 mg/dL (1.6-2.4); Potassium 2.8 mEq/L (3.5-5.1); Protein, Total 6.2 g/dL (6.4-8.2); Sodium Level 142 mEq/L (136-145)
--- NOTE | 2024-05-12 07:36 | P.PN ---
Date of Service: 05/12/24 Subjective Resting in bed with eyes closed, no acute distress noted N.p.o. for hemodialysis catheter today Review of Systems 10-point ROS is otherwise unremarkable Physical Examination - Vital Signs Reviewed - Physical Exam General: Alert, In no apparent distress, Oriented x3 HEENT: Atraumatic, Normocephalic Neck: Supple, 2+ carotid pulse no bruit Respiratory: Clear to auscultation bilaterally, Normal air movement Cardiovascular: Normal pulses, Regular rate/rhythm, Normal S1 S2 Capillary refill: <2 Seconds Gastrointestinal: Soft and benign, W/out hepatosplenomegaly Musculoskeletal: No clubbing, No swelling Integumentary: No rashes, No breakdown : Sandoval to bedside drainage Neurological: Normal speech, Normal strength at 5/5 x4 extr, Cranial nerves 3-12 intact, Normal reflexes 2+ Lymphatics: No axilla or inguinal lymphadenopathy Assessment and Plan - Plan Acute on chronic renal failure Acute kidney injury on CKD stage II Monitor renal parameters Nephrology consulted Started on IV hydration Monitor electrolytes and replace accordingly Surgery following for hemodialysis catheter today Nephrology following for dialysis today Metabolic acidosis Creatinine of 21.7 with anion gap of 21.9 Started on sodium bicarb drip Monitor anion gap Bicarb drip Hypertension Antihypertensives titrated Continue home medications and titrate as needed Hyperlipidemia Continue statin Diabetes Insulin sliding scale Accu-Chek before every meal and at bedtime Severe anemia Anemia of chronic disease Monitor H&H closely No overt bleeding at this time Type and cross, transfuse 2 unit Trend H&H GI/DVT prophylaxis heparin held due to severe anemia Advanced directive full code - Advance Directives Does patient have a Living Will: No Does patient have a Durable POA for Healthcare: No Time spent with patient 35-minute <Jessica Sandoval - Last Filed: 05/12/24 14:42> Patient was seen and examined. Events of the last 24 hours have been noted. Spoke with with MARIO regarding patient's clinical picture after evaluating and examining the patient independently. I performed a substantial part of the MDM during this patient's care today. I personally made or approved the documented m anagement plan and acknowledge its risk of complications. I agree with the findings and documentation provided in the MARIO's notes. End-stage renal disease; patient started on hemodialysis. Continue monitoring renal function. Patient will need to be on dialysis for short time. And patient will follow-up with nephrology. Awaiting for chair time. Check hepatitis panel. <Yoseph Cunningham - Last Filed: 05/13/24 20:46>
[2024-05-12] MEDS: NA CHLORIDE 0.9% 1,000 ML IV SCH (07:37)
[2024-05-12 08:00] LABS: Glomerular Filtration Rate 2 ml/min (=/>90)
[2024-05-12] MEDS: KCL 20 MEQ/100 mL IVPB 20 MEQ/100 ML BAG IV SCH (08:00)
[2024-05-12] MEDS ORDERED: NA CHLORIDE 0.9% 250 ML IV SCH (08:00)
[2024-05-12 08:01] LABS: Phosphorus 9.3 mg/dL (2.5-4.9)
[2024-05-12] MEDS: NS 0.9% VIAL 10 ML ONE (08:54)
[2024-05-12] MEDS: NA CHLORIDE 0.9% 100 ML ONE (08:54)
[2024-05-12] MEDS: NA CHLORIDE 0.9% 500 ML ONE (09:00)
[2024-05-12] MEDS ORDERED: propofoL 200 MG/20 ML VIAL IV ONE (09:22)
[2024-05-12] MEDS ORDERED: MIDAZOLAM HCL 2 MG/2 ML INJ ONE (09:22)
--- NOTE | 2024-05-12 09:28 | P.CNS ---
Date of Consult: 05/12/24 Reason for consult: Needs urgent dialysis History of present illness: Patient is a 63-year-old gentleman who presented to the emergency room with 3 weeks history of weakness and fatigue that was progressively getting worse. Patient denies any sore throat, runny nose, cough, headaches, dizziness, chest pain fever or chills. Workup revealed acute kidney failure which did not respond to medical management. Patient requires emergent dialysis and blood transfusion for hemoglobin of 5.8. Patient's hemoglobin was 7.0 on admission and with hydration it went down to 5.8. The plan of care was discussed in detail with Dr. Flores. Review of systems: Otherwise unremarkable Past medical history: Diabetes, hypertension, chronic kidney disease and colon cancer Past surgical history: Cholecystectomy, colectomy with colostomy Allergies: No allergies Social history: Patient does not smoke or drink Family history: Noncontributory Vital signs: Stable, afebrile Physical exam: Awake, alert and oriented x 3 Head and neck: No neck masses, no JVD, throat clear neck supple Chest: Clear Heart: S1-S2 Abdomen: Soft Extremity: Neurovascular intact Neuro: Nonfocal Diagnostic data: Reviewed. Hemoglobin of 5.8 and BUN and creatinine markedly elevated. Platelets and INR within normal limits Assessment: Acute renal failure Plan/recommendation: Will proceed with placement of a temporary dialysis catheter. Patient understands risk, benefits and alternatives and agrees to procedure. Should his renal function does not improve and patient needs permanent dialysis, we will place a tunneled catheter at a later date. Plan of care discussed with Dr. Flores. CC: Dr. Flores
[2024-05-12] MEDS: HEPARIN 5000 UNIT/ML 1 ML VIAL ONE (09:50)
[2024-05-12] MEDS: LIDOCAINE 1% 20 ML MDV ONE (09:50)
[2024-05-12] MEDS: CEFAZOLIN SODIUM 2 GM/VIAL ONE (09:50)
--- NOTE | 2024-05-12 10:01 | P.OP ---
Date of Service: 05/12/24 Preop diagnosis: Acute renal failure Postop diagnosis: Same Procedure performed: Placement of right IJ Ashish catheter, interpretation of intraoperative fluoroscopy Surgeon: Julio Brower MD [employer]ger [employer] Supervisor: None Estimated blood loss: Minimal Specimen: None Findings: Normal anatomy Anesthesia: MAC Complications: None Drains: None Fluids and blood products: Nonapplicable Disposition: Recovery room Operative note: Patient brought to the OR and placed in the supine position. MAC anesthesia began. Patient prepped and draped in the usual sterile fashion. Lidocaine 1% infiltrated locally. 18-gauge needle used to access the right IJ vein. Guidewire passed and position confirmed with fluoroscopy. Seldinger technique used. Vein dilated and tip of the Ashish catheter placed in the SVC right atrial junction. Position confirmed with fluoroscopy again. 2-0 nylon used to secure the catheter to the skin. Sterile dressing applied. Patient awakened and taken to recovery room in good general condition. Chest x-ray has been ordered. CC: Dr. Flores's office
[2024-05-12] MEDS ORDERED: HYDROCODONE/APAP 5/325 MG TAB PO PRN (10:07)
[2024-05-12] MEDS: D5W 1,000 ML with NA BICARB 8.4% 150 MEQ IV SCH (10:26)
--- NOTE | 2024-05-12 10:34 | RAD REPORT ---
EXAM DESCRIPTION: RAD - Chest Single View - 05/12/2024 10:26 am CLINICAL HISTORY: Status post Ashish catheter placement Chest pain. COMPARISON: <Comparisons> FINDINGS: Portable technique limits examination quality. Right-sided venous catheter is in place with tip in the SVC. No postprocedure pneumothorax. The lungs are clear. The heart is normal in size.No finding concerning for TB.
--- NOTE | 2024-05-12 11:09 | P.PN ---
(S) S/p placement of temp HD catheter as no improvement in metab profile seen with IVF hydration despite some UOP (O) Vitals reviewed in the EMR General: Other (Pale, chronically ill appearing) HEENT: Atraumatic, Normocephalic Neck: Supple, Rt iJ Cory Respiratory: Clear to auscultation bilaterally, Normal air movement Cardiovascular: No edema, Regular rate/rhythm, Normal S1 S2, Other (Cardiac murmur noted) Gastrointestinal: Soft and benign, Non-distended, Other (Lt sided ostomy) Musculoskeletal: No swelling, No contractures, No tenderness Integumentary: No rashes Neurological: Other (Awake, able to converse, no tremors or myoclonus noted) Laboratory Data (last 24 hrs) Reviewed Conclusions/Impression: A/P) 1. Sub acute Stage III ARF per ANGELICA definition on underlying CKD, possibly Stage IIIB with prior u/s showing preserved renal sizes but echogenic kidneys. ARF in the setting of presumed vol depletion, ostomy losses, other leading to ATN given severity of renal failure. CT imaging does not show hydro. 2. No sig response to IVF hydration and given marked azotemia and some uremic symptoms, proceed with HD via temp catheter for now for clearance, see orders for detail 3. Did request goldberg for strict I/Os, pt is not anuric 4. Severe AG metab acidosis with large deficit, will receive bicarb load with dialysis, will cont gtt but reduce bicarb content to prevent rebound alkalosis and hypocalcemia 5. Sig hyperphosphatemia due to renal failure -will clear with HD and will place on phos binders 6. Avoid nephrotoxins and dose meds for reduced CrCl Rocky Flores MD, JW
[2024-05-12] MEDS: CALCIUM ACETATE 667 MG TAB PO SCH (12:00)
[2024-05-12 12:19] LABS: Hepatitis B Core IgM Nonreactive (Nonreactive); Hepatitis B surface AG Interp. Nonreactive (Nonreactive)
[2024-05-12 12:20] LABS: Hepatitis B Surface Ab - Quant < 3.10 mIU/mL (<8.0)
[2024-05-12 12:21] LABS: HBsAG Nonreactive Report Report
[2024-05-12] MEDS: POTASSIUM 25 MEQ EFFERV TAB PO ONE (14:51)
[2024-05-12] MEDS: NACHLORIDE 0.45% 1,000 ML with NA BICARB 8.4% 75 MEQ IV SCH (15:10)
[2024-05-12] MEDS: ONDANSETRON 4 MG/2 ML VIAL IV PRN (15:40)
[2024-05-12 16:29] LABS: Hematocrit 27.6 % (39.6-49.0); Hemoglobin 8.9 g/dL (13.6-17.9)
[2024-05-12 16:46] LABS: AST/SGOT 15 U/L (15-37); Albumin 2.8 g/dL (3.4-5.0); Albumin/Globulin Ratio 0.7 (1.1-1.8); Alkaline Phosphatase 71 U/L (45-117); Anion Gap 16.6 mEq/L (5.0-15.0); BUN Blood Urea Nitrogen 83 mg/dL (7-18); Bicarbonate 18 mEq/L (21-32); Bilirubin Total 0.7 mg/dL (0.2-1.0); Globulin 3.8 g/dL (2.3-3.5); Glomerular Filtration Rate 5 ml/min (=/>90); Glucose Level 104 mg/dL (74-106); Protein, Total 6.6 g/dL (6.4-8.2); Sodium Level 140 mEq/L (136-145)
[2024-05-12 16:48] LABS: ALT/SGPT < 14 U/L (16-61); Potassium 2.8 mEq/L (3.5-5.1)
--- NOTE | 2024-05-12 19:08 | RAD REPORT ---
EXAM DESCRIPTION: RAD - Fluoroscopy <1 Hour - 05/12/2024 7:01 pm CLINICAL HISTORY: Venous catheter insertion. CASS CATHETER DONE WITH DOCTOR FAUSTIN IN OR ROOM 1 COMPARISON: <Comparisons> FINDINGS: Fluoroscopic imaging is submitted from placement of a venous catheter. Details of the pro cedure not available. Fluoroscopy time: 0.1 minutes
[2024-05-13 07:35] LABS: Absolute Basophils 0.1 K/uL (0-0.5); Absolute Eosinophils 0.1 K/uL (0-0.5); Absolute Lymphocytes (CBC) 1.2 K/uL (0.7-4.9); Absolute Monocytes 1.4 K/uL (0.1-1.3); Absolute Neutrophil 7.8 K/uL (1.8-8.0); Basophils % 0.7 % (0-1.3); Eosinophils % 0.7 % (0-4.4); Hematocrit 26.7 % (39.6-49.0); Hemoglobin 8.8 g/dL (13.6-17.9); Lymphocytes % 11.5 % (15.3-44.8); MCV 84.6 fL (80-100); MPV 8.9 fL (7.6-11.3); Monocytes % 12.9 % (3.3-12.3); Neutrophils % 74.2 % (41.7-73.7); Nucleated Red Blood Cells % 0.1 % (0-0); Platelets 159 thou/uL (152-406); RBC Red Blood Cell Count 3.16 M/uL (4.33-5.43); Red Cell Distribution Width 17.3 % (12.1-15.2)
[2024-05-13 07:59] LABS: Albumin 2.6 g/dL (3.4-5.0); Anion Gap 13.6 mEq/L (5.0-15.0); Magnesium 1.5 mg/dL (1.6-2.4); Phosphorus 5.7 mg/dL (2.5-4.9)
[2024-05-13 08:02] LABS: Potassium 2.6 mEq/L (3.5-5.1)
[2024-05-13] MEDS: KCL 20 MEQ/100 mL IVPB 20 MEQ/100 ML BAG IV SCH (08:30)
[2024-05-13] MEDS: POTASSIUM 25 MEQ EFFERV TAB PO ONE (08:30)
[2024-05-13 11:46] LABS: Hematocrit 28.5 % (39.6-49.0); Hemoglobin 9.2 g/dL (13.6-17.9)
--- NOTE | 2024-05-13 12:04 | P.PN ---
(S) Pt seen on HD, tolerating session, CVC working well, has been nauseated although no active N/V when seen, flows on HD lowered. K remains low, being repleted (O) Vitals reviewed in the EMR General: Other (Pale, chronically ill appearing) HEENT: Atraumatic, Normocephalic Neck: Supple, Rt iJ Cory Respiratory: Clear to auscultation bilaterally, Normal air movement Cardiovascular: No edema, Regular rate/rhythm, Normal S1 S2, Other (Cardiac murmur noted) Gastrointestinal: Soft and benign, Non-distended, Other (Lt sided ostomy) Musculoskeletal: No swelling, No contractures, No tenderness Integumentary: No rashes Neurological: Other (Awake, able to converse, no tremors or myoclonus noted) Laboratory Data (last 24 hrs) Reviewed Conclusions/Impression: A/P) 1. Sub acute Stage III ARF per ANGELICA definition on underlying CKD, possibly Stage IIIB with prior u/s showing preserved renal sizes but echogenic kidneys. ARF in the setting of presumed vol depletion, ostomy losses, other leading to ATN given severity of renal failure. CT imaging does not show hydro. 2. No sig response to IVF hydration and given marked azotemia and some uremic symptoms, proceeded on 05/12 with HD via temp catheter for now for clearance, see orders for detail. With back to back HD yesterday and today, will likely hold HD tmrw, will also want to avoid any dialysis disequilibrium with rapid clearance of urea 3. Persistent hypokalemia 2nd to GI losses, poor intake, total body depletion, dialyzing with higher K bath, cont to replete, check level 2-4h post HD 4. Severe AG metab acidosis with large deficit, improving with HD, d/c any bicarb gtt 5. Sig hyperphosphatemia due to renal failure -will clear with HD and did place on phos binders 6. Avoid nephrotoxins and dose meds for reduced CrCl Rocky Flores MD, JW
[2024-05-13] MEDS: MAGNESIUM SULFATE 1 gm IVPB 1 GM/100 ML BAG IV ONE (13:43)
--- NOTE | 2024-05-13 20:51 | P.PN ---
Subjective Date of Service: 05/13/24 Patient clinically doing well. Patient dialyzed once again today. Clinically doing much better after dialysis. Second dialysis completed. Plan to dialyze once again in the morning. Arranging for outpatient hemodialysis. Review of Systems 10-point ROS is otherwise unremarkable Physical Examination - Vital Signs Temperature: 98.3 F Blood Pressure: 138/85 Pulse: 87 Respirations: 18 Pulse Ox (%): 97 - Physical Exam General: Alert, In no apparent distress, Oriented x3 Respiratory: Clear to auscultation bilaterally, Normal air movement Cardiovascular: Regular rate/rhythm, Normal S1 S2, Systolic murmur Gastrointestinal: Normal bowel sounds, Soft and benign, Non-distended, No tenderness, Other (Left-sided colostomy) Musculoskeletal: No clubbing, No swelling, No tenderness Neurological: Sensation intact, Cranial nerves 3-12 intact - Studies Medications List Reviewed: Yes Assessment & Plan - Problems (Diagnosis) (1) CKD (chronic kidney disease) stage 4, GFR 15-29 ml/min Current Visit: Yes Status: Acute (2) Type 2 diabetes mellitus Current Visit: No Status: Chronic Qualifiers: Diabetes mellitus intermediate insulin use: without termite helper use Diabetes mellitus complication status: with hyperglycemia Qualified Code(s): E11.65 - Type 2 diabetes mellitus with hyperglycemia (3) Hypertension Current Visit: No Status: Chronic Qualifiers: Hypertension type: primary hypertension Qualified Code(s): I10 - Essential (primary) hypertension (4) Presence of colostomy Current Visit: Yes Status: Acute (5) Colon cancer Current Visit: No Status: Chronic Qualifiers: Colon location: unspecified part of colon Qualified Code(s): C18.9 - Malignant neoplasm of colon, unspecified (6) Anemia in chronic kidney disease Current Visit: Yes Status: Acute (7) Other complications of colostomy Current Visit: Yes Status: Acute (8) Hypokalemia Current Visit: Yes Status: Acute - Plan Plan: 1. Patient with acute on chronic renal disease stage III; continue with hemodialysis per nephrology. Acidosis has corrected. Remains hypokalemic because of high output from colostomy. Continue monitoring output and hydration. Continue monitoring renal function. Strict I's and O's. Continue with gentle hydration. 2. History of type 2 diabetes; strict blood sugar control 3. History of hypertension; continue with antihypertensives 4. History of partial colectomy with colostomy; monitor output. Continue with replating electrolytes as needed while monitoring renal function. 5. GI DVT prophylaxis Discharge Plan: Home Plan to discharge in: Greater than 2 days - Advance Directives Does patient have a Living Will: No Does patient have a Durable POA for Healthcare: No - Code Status/Comfort Care Code Status Assessed: Yes Code Status: Full Code Critical Care: No Time Spent Managing PTS Care (In Minutes): 35
[2024-05-14 06:53] LABS: Absolute Basophils 0.1 K/uL (0-0.5); Absolute Eosinophils 0.1 K/uL (0-0.5); Absolute Lymphocytes (CBC) 1.6 K/uL (0.7-4.9); Absolute Monocytes 1.6 K/uL (0.1-1.3); Absolute Neutrophil 7.8 K/uL (1.8-8.0); Basophils % 0.7 % (0-1.3); Eosinophils % 1.3 % (0-4.4); Hematocrit 27.1 % (39.6-49.0); Hemoglobin 9.2 g/dL (13.6-17.9); Lymphocytes % 14.3 % (15.3-44.8); MCH 28.4 pg (27.0-35.0); MCV 83.4 fL (80-100); MPV 8.6 fL (7.6-11.3); Monocytes % 14.6 % (3.3-12.3); Neutrophils % 69.1 % (41.7-73.7); Nucleated Red Blood Cells % 0.1 % (0-0); Platelets 172 thou/uL (152-406); RBC Red Blood Cell Count 3.25 M/uL (4.33-5.43)
[2024-05-14 07:19] LABS: Albumin 2.8 g/dL (3.4-5.0); Phosphorus 4.6 mg/dL (2.5-4.9)
[2024-05-14] MEDS: POTASSIUM CL SA 10 MEQ TAB PO SCH (09:56)
--- NOTE | 2024-05-14 12:52 | P.PN ---
Subjective Date of Service: 05/14/24 Chief Complaint: Elevated RFT Pt is resting comfortably in bed. Potassium is 3.0. Will replete. he has a dialysis catheter on right neck. Will continue dialysis. No other complaints. Review of Systems General: Unremarkable Eyes: Unremarkable ENT: Unremarkable Respiratory: Unremarkable Cardiovascular: Unremarkable Gastrointestinal: Unremarkable Genitourinary: Unremarkable Musculoskeletal: Unremarkable Integumentary: Unremarkable Neurological: Unremarkable Lymphatics: Unremarkable Physical Examination - Vital Signs Temperature: 98.6 F Blood Pressure: 153/85 Pulse: 80 Respirations: 14 Pulse Ox (%): 99 - Physical Exam General: Alert, In no apparent distress, Oriented x3 HEENT: Atraumatic, Normocephalic, PERRLA Neck: Supple, 2+ carotid pulse no bruit, JVD not distended Respiratory: Clear to auscultation bilaterally, Normal air movement Cardiovascular: No edema, Normal pulses Capillary refill: <2 Seconds Gastrointestinal: Normal bowel sounds, Soft and benign, Non-distended Musculoskeletal: No clubbing, No swelling, No contractures Integumentary: No rashes, No breakdown, No significant lesion Neurological: Normal gait, Normal speech, Normal strength at 5/5 x4 extr, Normal tone, Sensation intact Lymphatics: No axilla or inguinal lymphadenopathy - Studies Medications List Reviewed: Yes Assessment And Plan - Plan Acute on chronic disease, stage 3: Will continue dialysis. Cr is 7.59. Nephrology is following. Continue gentle hydration. Htn: Continue home med DM II: Continue accuchek, SSI and ADA diet. Anemia of chronic disease: hgb is 9.2. Will monitor H/H. Hypokalemia: K is 3.0. Will replete and monitor. Hx of colon cancer s/p partial colectomy with colostomy: Noted. DVT ppx: SCD Dispo: pending hospital course.
--- NOTE | 2024-05-14 21:42 | P.PN ---
Date of Service: 05/14/24 Vital Signs Temp Pulse Resp BP Pulse Ox 98.0 F 87 14 153/85 H 95 05/14/24 16:00 05/14/24 16:00 05/14/24 16:00 05/14/24 16:00 05/14/24 16:00 Medications Acetaminophen (Acetaminophen 325 Mg Tablet) 650 mg PO Q4HP PRN PRN Reason: Pain scale 2-4 (Mild) Calcium Acetate (Calcium Acetate 667 Mg Tab) 1,334 mg PO TIDWM JANELLE Last Admin: 05/14/24 17:40 Dose: 1,334 mg Heparin Sodium (Porcine) (Heparin 1,000 Unit/Ml Vial) 2,000 unit IV EVERY HD PRN PRN Reason: Prevent HD System Clotting Last Admin: 05/13/24 10:13 Dose: 2,000 unit Heparin Sodium (Porcine) (Heparin 1,000 Unit/Ml Vial) 4,000 unit IV EVERY HD PRN PRN Reason: DIALYSIS CATHETER CARE Last Admin: 05/13/24 13:04 Dose: 4,000 unit Sodium Chloride (Sodium Chloride) 250 mls @ 0 mls/hr IV .Q0M [facility] Ondansetron HCl (Ondansetron 4 Mg/2 Ml Vial) 4 mg IV Q6HP PRN PRN Reason: NAUSEA / VOMITING Last Admin: 05/12/24 15:40 Dose: 4 mg Microbiology Results 05/11/24 16:20 Blood - Blood Aerobic Blood Culture - Preliminary No growth in 24 hours. 05/11/24 16:20 Blood - Blood Anaerobic Blood Culture - Preliminary No growth in 24 hours. 05/11/24 16:35 Blood - Blood Aerobic Blood Culture - Preliminary No growth in 24 hours. 05/11/24 16:35 Blood - Blood Anaerobic Blood Culture - Preliminary No growth in 24 hours. Assessment/ Plan: Nephrology No dyspnea No chest pain No acute events overnight Vitals, medications, blood work and imaging reviewed in the chart NAD. MMM. RIJ CVC. NCAT. Normal Respiratory Effort. S1S2. ND Abd. LLQ Ostomy. No C/C/E. No rash. AAO. Normal speech. Sandoval light. Stage III CARSON likely hypovolemia complicated by ATN -No NSAIDs -HD prn Hypokalemia -Replete as ordered Hypomagnesemia -Replete as ordered HyperPhosphatemia -Continue Phoslo HTN with CKD -Monitor BP Hypoalbuminemia -Start Nepro Anemia in chronic illness -Monitor H&H -Retacrit prn Hospitalist note reviewed
[2024-05-15 06:54] LABS: Specific Gravity 1.013 (1.005-1.030); Sqamous Epithelial <5 /HPF (None Seen); Urine Bacteria None Seen /HPF (<20); Urine Bilirubin NEGATIVE (Negative); Urine Blood 2+ (Negative); Urine Clarity Extremely Turbid (Clear); Urine Color Light-Yellow (Yellow); Urine Culture Reflex Order REFLEXED; Urine Glucose NEGATIVE (Negative); Urine Ketones NEGATIVE (Negative); Urine Micro Reflex YN NO BILL MICROSCOPIC; Urine Mucus Slight /HPF (None Seen); Urine Nitrite NEGATIVE (Negative); Urine Protein 2+ (Negative); Urine Urobilinogen Normal (Normal); Urine WBC >50 /HPF (<5); Urine WBC Clump Few /HPF (None Seen); Urine Yeast (Budding) Moderate /HPF (None Seen)
[2024-05-15 07:51] LABS: MA/CREAT RATIO 729.6 (< 30.0); UR PROTEIN 214.5 mg/dL (<11.9); Urine Protein/Creatinine Ratio 1.35 ratio (<0.15)
[2024-05-15 07:52] LABS: Absolute Basophils 0.1 K/uL (0-0.5); Absolute Eosinophils 0.3 K/uL (0-0.5); Absolute Lymphocytes (CBC) 1.7 K/uL (0.7-4.9); Absolute Monocytes 1.5 K/uL (0.1-1.3); Absolute Neutrophil 7.4 K/uL (1.8-8.0); Basophils % 0.7 % (0-1.3); Eosinophils % 2.7 % (0-4.4); Hematocrit 28.8 % (39.6-49.0); Hemoglobin 9.6 g/dL (13.6-17.9); Lymphocytes % 15.8 % (15.3-44.8); MCH 28.4 pg (27.0-35.0); MCHC 33.5 g/dL (32.0-36.0); MCV 84.9 fL (80-100); MPV 9.2 fL (7.6-11.3); Monocytes % 13.6 % (3.3-12.3); Neutrophils % 67.2 % (41.7-73.7); Nucleated Red Blood Cells % 0.1 % (0-0); Platelets 176 thou/uL (152-406); Red Cell Distribution Width 17.2 % (12.1-15.2)
[2024-05-15 08:02] LABS: Albumin 2.6 g/dL (3.4-5.0); Anion Gap 12.6 mEq/L (5.0-15.0); Phosphorus 4.5 mg/dL (2.5-4.9); Potassium 3.6 mEq/L (3.5-5.1); Uric Acid 5.2 mg/dL (3.5-7.2)
--- NOTE | 2024-05-15 08:10 | P.PN ---
Date of Service: 05/15/24 Vital Signs Temp Pulse Resp BP Pulse Ox 97.2 F 81 18 161/90 H 98 05/15/24 04:00 05/15/24 04:00 05/15/24 04:00 05/15/24 04:00 05/15/24 04:00 Medications Acetaminophen (Acetaminophen 325 Mg Tablet) 650 mg PO Q4HP PRN PRN Reason: Pain scale 2-4 (Mild) Calcium Acetate (Calcium Acetate 667 Mg Tab) 1,334 mg PO TIDWM [facility] Last Admin: 05/14/24 17:40 Dose: 1,334 mg Enteral Nutritional Formula (Nepro Shake 237 Ml Can) 237 ml PO TID [facility]END[facility] TO [facility] Heparin Sodium (Porcine) (Heparin 1,000 Unit/Ml Vial) 2,000 unit IV EVERY HD PRN PRN Reason: Prevent HD System Clotting Last Admin: 05/13/24 10:13 Dose: 2,000 unit Heparin Sodium (Porcine) (Heparin 1,000 Unit/Ml Vial) 4,000 unit IV EVERY HD PRN PRN Reason: DIALYSIS CATHETER CARE Last Admin: 05/13/24 13:04 Dose: 4,000 unit Sodium Chloride (Sodium Chloride) 250 mls @ 0 mls/hr IV .Q0M [facility] Ondansetron HCl (Ondansetron 4 Mg/2 Ml Vial) 4 mg IV Q6HP PRN PRN Reason: NAUSEA / VOMITING Last Admin: 05/12/24 15:40 Dose: 4 mg Microbiology Results 05/11/24 16:20 Blood - Blood Aerobic Blood Culture - Preliminary No growth in 24 hours. 05/11/24 16:20 Blood - Blood Anaerobic Blood Culture - Preliminary No growth in 24 hours. 05/11/24 16:35 Blood - Blood Aerobic Blood Culture - Preliminary No growth in 24 hours. 05/11/24 16:35 Blood - Blood Anaerobic Blood Culture - Preliminary No growth in 24 hours. Assessment/ Plan: Nephrology No dyspnea No chest pain No acute events overnight Vitals, medications, blood work and imaging reviewed in the chart NAD. MMM. RIJ CVC. NCAT. Normal Respiratory Effort. S1S2. ND Abd. LLQ Ostomy. No C/C/E. No rash. AAO. Normal speech. Sandoval light. Stage III CARSON likely hypovolemia complicated by ATN CKD III with Proteinuria -No NSAIDs -HD today Hypokalemia -Replete prn Hypomagnesemia -Replete prn HyperPhosphatemia -Continue Phoslo HTN with CKD -Monitor BP Hypoalbuminemia -Continue Nepro Anemia in chronic illness -Monitor H&H -Retacrit prn Case reviewed with hospitalist team
[2024-05-15] MEDS: NEPRO SHAKE 237 ML CAN PO SCH (08:17)
--- NOTE | 2024-05-15 12:47 | EKG ---
Test Date: 2024-05-11 Test Time: 16:21:59 Cloth Beamer: LOYDA MEASUREMENT RESULTS: Intervals: Rate: 101 FL: 126 QRSD: 96 QT: 382 QTc: 495 [place]: P: 78 FL: 126 QRS: 81 T: 71 INTERPRETIVE STATEMENTS: Sinus tachycardia Otherwise normal ECG Compared to ECG 11/26/2022 15:43:11 Sinus rhythm no longer present Electronically Signed On 05-15-24 12:44:00 CDT by Kiko Rodriguez
--- NOTE | 2024-05-15 14:33 | P.PN ---
Subjective Date of Service: 05/15/24 Chief Complaint: Elevated RFT Pt is resting comfortably in bed. Pt is waiting for dialsysis. cr is 8.51. HE has a dialysis catheter in right neck. Will continue dialysis. No other complaints. Review of Systems General: Unremarkable Eyes: Unremarkable ENT: Unremarkable Respiratory: Unremarkable Cardiovascular: Unremarkable Gastrointestinal: Unremarkable Genitourinary: Unremarkable Musculoskeletal: Unremarkable Integumentary: Unremarkable Neurological: Unremarkable Lymphatics: Unremarkable Physical Examination - Vital Signs Temperature: 97.7 F Blood Pressure: 110/71 Pulse: 111 Respirations: 18 Pulse Ox (%): 97 - Physical Exam General: Alert, In no apparent distress, Oriented x3 HEENT: Atraumatic, Normocephalic, PERRLA Neck: Supple, 2+ carotid pulse no bruit, JVD not distended Respiratory: Clear to auscultation bilaterally, Normal air movement Cardiovascular: No edema, Normal pulses, Regular rate/rhythm, Normal S1 S2 Capillary refill: <2 Seconds Gastrointestinal: Normal bowel sounds, Soft and benign, Non-distended Musculoskeletal: No clubbing, No swelling, No contractures Integumentary: No rashes, No breakdown, No significant lesion Neurological: Normal gait, Normal speech, Normal strength at 5/5 x4 extr Lymphatics: No axilla or inguinal lymphadenopathy - Studies Medications List Reviewed: Yes Assessment And Plan - Plan Acute on chronic disease, stage 3: Will continue dialysis. Cr is 8.51<- 7.59. Nephrology is following. Continue gentle hydration. Htn: Continue home med DM II: Continue accuchek, SSI and ADA diet. Anemia of chronic disease: hgb is 9.2. Will monitor H/H. Hypokalemia: K is 3.6 <- 3.0. Will replete and monitor. Hx of colon cancer s/p partial colectomy with colostomy: Noted. DVT ppx: SCD Dispo: pending hospital course.
[2024-05-16 07:21] LABS: Absolute Basophils 0.1 K/uL (0-0.5); Absolute Eosinophils 0.4 K/uL (0-0.5); Absolute Monocytes 1.5 K/uL (0.1-1.3); Absolute Neutrophil 8.5 K/uL (1.8-8.0); Basophils % 0.6 % (0-1.3); Eosinophils % 3.5 % (0-4.4); Hematocrit 30.9 % (39.6-49.0); Hemoglobin 10.2 g/dL (13.6-17.9); Lymphocytes % 16.1 % (15.3-44.8); MCH 28.1 pg (27.0-35.0); MCV 85.4 fL (80-100); MPV 9.3 fL (7.6-11.3); Monocytes % 12.3 % (3.3-12.3); Neutrophils % 67.5 % (41.7-73.7); Nucleated Red Blood Cells % 0.1 % (0-0); Platelets 181 thou/uL (152-406); RBC Red Blood Cell Count 3.62 M/uL (4.33-5.43); Red Cell Distribution Width 17.6 % (12.1-15.2)
[2024-05-16 07:45] LABS: Albumin 2.9 g/dL (3.4-5.0); Anion Gap 10.6 mEq/L (5.0-15.0); Phosphorus 2.9 mg/dL (2.5-4.9); Potassium 3.6 mEq/L (3.5-5.1)
--- NOTE | 2024-05-16 11:10 | P.PN ---
Subjective Date of Service: 05/16/24 Chief Complaint: Elevated RFT Pt is resting comfortably in bed. Cr is 7.71 <- 8.51 s/p dialysis yesterday. He has a dialysis catheter in right neck. Will continue dialysis. No other complaints. Review of Systems General: Unremarkable Eyes: Unremarkable ENT: Unremarkable Respiratory: Unremarkable Cardiovascular: Unremarkable Gastrointestinal: Unremarkable Genitourinary: Unremarkable Musculoskeletal: Unremarkable Integumentary: Unremarkable Neurological: Unremarkable Lymphatics: Unremarkable Physical Examination - Vital Signs Temperature: 97.8 F Blood Pressure: 114/65 Pulse: 93 Respirations: 16 Pulse Ox (%): 97 - Physical Exam General: Alert, In no apparent distress, Oriented x3 HEENT: Atraumatic, Normocephalic, PERRLA Neck: Supple, 2+ carotid pulse no bruit Respiratory: Clear to auscultation bilaterally, Normal air movement Cardiovascular: No edema, Normal pulses, Regular rate/rhythm, Normal S1 S2 Capillary refill: <2 Seconds Gastrointestinal: Normal bowel sounds, Soft and benign, Non-distended Musculoskeletal: No clubbing, No swelling, No contractures Integumentary: No rashes, No breakdown, No significant lesion Neurological: Normal gait, Normal speech, Normal strength at 5/5 x4 extr, Normal tone, Sensation intact Lymphatics: No axilla or inguinal lymphadenopathy - Studies Medications List Reviewed: Yes Assessment And Plan - Plan Acute on chronic disease, stage 3: Will continue dialysis. Cr is 7.71 <- 8.51<- 7.59. Nephrology is following. Continue gentle hydration. Htn: Continue home med DM II: Continue accuchek, SSI and ADA diet. Anemia of chronic disease: hgb is 10.2 <- 9.2. Will monitor H/H. Hypokalemia: K is 3.6 <- 3.0. Will replete and monitor. Hx of colon cancer s/p partial colectomy with colostomy: Noted. DVT ppx: SCD Dispo: pending hospital course pending Clearance by Nephrology.
[2024-05-17 07:54] LABS: Anion Gap 15.8 mEq/L (5.0-15.0); Magnesium 1.9 mg/dL (1.6-2.4); Potassium 3.8 mEq/L (3.5-5.1)
[2024-05-17] MEDS ORDERED: CEFAZOLIN SODIUM 2 GM in NA CHLORIDE 0.9% 100 ML IVPB SCH (11:00)
--- NOTE | 2024-05-17 13:32 | P.PN ---
Subjective Date of Service: 05/17/24 Chief Complaint: Elevated RFT Pt is resting comfortably in bed. Cr is 8.63 <- 7.71 <- 8.51 s/p dialysis. He has a dialysis catheter in right neck. Consulted Gen surgeon for dialysis catheter placement. No other complaints. Review of Systems General: Unremarkable Eyes: Unremarkable ENT: Unremarkable Respiratory: Unremarkable Cardiovascular: Unremarkable Gastrointestinal: Unremarkable Genitourinary: Unremarkable Musculoskeletal: Unremarkable Integumentary: Unremarkable Neurological: Unremarkable Lymphatics: Unremarkable Physical Examination - Vital Signs Temperature: 97.8 F Blood Pressure: 114/65 Pulse: 93 Respirations: 16 Pulse Ox (%): 97 - Physical Exam General: Alert, In no apparent distress, Oriented x3 HEENT: Atraumatic, Normocephalic, PERRLA Neck: Supple, 2+ carotid pulse no bruit, JVD not distended Respiratory: Clear to auscultation bilaterally, Normal air movement Cardiovascular: No edema, Normal pulses, Regular rate/rhythm, Normal S1 S2 Capillary refill: <2 Seconds Gastrointestinal: Normal bowel sounds, Soft and benign, Non-distended Musculoskeletal: No clubbing, No swelling, No contractures Integumentary: No rashes, No breakdown, No significant lesion Neurological: Normal gait, Normal speech, Normal strength at 5/5 x4 extr, Normal tone, Sensation intact Lymphatics: No axilla or inguinal lymphadenopathy - Studies Microbiology Data (last 24 hrs): 05/11/24 16:20 Blood - Blood Aerobic Blood Culture - Final No growth in 5 days. 05/11/24 16:20 Blood - Blood Anaerobic Blood Culture - Final No growth in 5 days. 05/11/24 16:35 Blood - Blood Aerobic Blood Culture - Final No growth in 5 days. 05/11/24 16:35 Blood - Blood Anaerobic Blood Culture - Final No growth in 5 days. Medications List Reviewed: Yes Assessment And Plan - Plan Acute on chronic disease, stage 3: Will continue dialysis. Cr is 8.63<- 7.71 <- 8.51<- 7.59. Nephrology is following. Consulted Gen surgeon for dialysis catheter placement. Htn: Continue home med DM II: Continue accuchek, SSI and ADA diet. Anemia of chronic disease: hgb is 10.2 <- 9.2. Will monitor H/H. Hypokalemia: K is 3.8 <- 3.6 <- 3.0. Will replete and monitor. Hx of colon cancer s/p partial colectomy with colostomy: Noted. DVT ppx: SCD Dispo: pending hospital course pending Clearance by Nephrology. cad manager will set up dialysis chair.
--- NOTE | 2024-05-17 21:40 | P.PN ---
Date of Service: 05/17/24 Vital Signs Temp Pulse Resp BP Pulse Ox 98.2 F 102 H 16 131/86 98 05/17/24 20:00 05/17/24 20:00 05/17/24 20:00 05/17/24 20:00 05/17/24 20:00 Medications Acetaminophen (Acetaminophen 325 Mg Tablet) 650 mg PO Q4HP PRN PRN Reason: Pain scale 2-4 (Mild) Calcium Acetate (Calcium Acetate 667 Mg Tab) 1,334 mg PO TIDWM [facility] Last Admin: 05/17/24 17:09 Dose: 1,334 mg Enteral Nutritional Formula (Nepro Shake 237 Ml Can) 237 ml PO TID JANELLE Last Admin: 05/17/24 20:58 Dose: 237 ml Heparin Sodium (Porcine) (Heparin 1,000 Unit/Ml Vial) 2,000 unit IV EVERY HD PRN PRN Reason: Prevent HD System Clotting Last Admin: 05/13/24 10:13 Dose: 2,000 unit Heparin Sodium (Porcine) (Heparin 1,000 Unit/Ml Vial) 4,000 unit IV EVERY HD PRN PRN Reason: DIALYSIS CATHETER CARE Last Admin: 05/13/24 13:04 Dose: 4,000 unit Sodium Chloride (Sodium Chloride) 250 mls @ 0 mls/hr IV .Q0M [facility] Ondansetron HCl (Ondansetron 4 Mg/2 Ml Vial) 4 mg IV Q6HP PRN PRN Reason: NAUSEA / VOMITING Last Admin: 05/12/24 15:40 Dose: 4 mg Microbiology Results 05/11/24 16:20 Blood - Blood Aerobic Blood Culture - Final No growth in 5 days. 05/11/24 16:20 Blood - Blood Anaerobic Blood Culture - Final No growth in 5 days. 05/11/24 16:35 Blood - Blood Aerobic Blood Culture - Final No growth in 5 days. 05/11/24 16:35 Blood - Blood Anaerobic Blood Culture - Final No growth in 5 days. Assessment/ Plan: Nephrology No dyspnea No chest pain No acute events overnight Vitals, medications, blood work and imaging reviewed in the chart NAD. MMM. RIJ CVC. NCAT. Normal Respiratory Effort. S1S2. ND Abd. LLQ Ostomy. No C/C/E. No rash. AAO. Normal speech. Sandoval light. Stage III CARSON likely hypovolemia complicated by ATN CKD III with Proteinuria -No NSAIDs -No HD today due to non-functioning temp HD CVC -Surgery requested to place a Tunneled HD CVC -Consult social work for placement Hypokalemia -Replete prn Hypomagnesemia -Replete prn HyperPhosphatemia -Phoslo prn HTN with CKD -Monitor BP Hypoalbuminemia -Continue Nepro Anemia in chronic illness -Monitor H&H -Retacrit prn Case reviewed with Dr. Lawson
[2024-05-18 07:16] LABS: Absolute Basophils 0.1 K/uL (0-0.5); Absolute Eosinophils 0.7 K/uL (0-0.5); Absolute Lymphocytes (CBC) 2.4 K/uL (0.7-4.9); Absolute Monocytes 1.4 K/uL (0.1-1.3); Absolute Neutrophil 10.6 K/uL (1.8-8.0); Basophils % 0.8 % (0-1.3); Eosinophils % 4.5 % (0-4.4); Hemoglobin 10.3 g/dL (13.6-17.9); Lymphocytes % 15.9 % (15.3-44.8); MCH 27.7 pg (27.0-35.0); MCHC 32.2 g/dL (32.0-36.0); MCV 86.1 fL (80-100); MPV 9.9 fL (7.6-11.3); Monocytes % 9.4 % (3.3-12.3); Neutrophils % 69.4 % (41.7-73.7); Platelets 190 thou/uL (152-406); RBC Red Blood Cell Count 3.72 M/uL (4.33-5.43); Red Cell Distribution Width 17.2 % (12.1-15.2)
[2024-05-18 07:33] LABS: ALT/SGPT 25 U/L (16-61); AST/SGOT 24 U/L (15-37); Albumin 2.9 g/dL (3.4-5.0); Albumin/Globulin Ratio 0.7 (1.1-1.8); Alkaline Phosphatase 103 U/L (45-117); Anion Gap 15.3 mEq/L (5.0-15.0); BUN Blood Urea Nitrogen 91 mg/dL (7-18); Bicarbonate 19 mEq/L (21-32); Bilirubin Total 0.3 mg/dL (0.2-1.0); Globulin 4.2 g/dL (2.3-3.5); Glomerular Filtration Rate 6 ml/min (=/>90); Glucose Level 135 mg/dL (74-106); Magnesium 2.2 mg/dL (1.6-2.4); Phosphorus 3.1 mg/dL (2.5-4.9); Potassium 4.3 mEq/L (3.5-5.1); Protein, Total 7.1 g/dL (6.4-8.2); Sodium Level 135 mEq/L (136-145); Uric Acid 7.8 mg/dL (3.5-7.2)
[2024-05-18 07:37] LABS: Bilirubin Direct < 0.2 mg/dL (0-0.2); Bilirubin Indirect, Calculated 0.1 mg/dL (0.2-0.8)
[2024-05-18] MEDS: NA CHLORIDE 0.9% 500 ML ONE (08:20)
[2024-05-18] MEDS ORDERED: NS 0.9% VIAL 10 ML ONE (08:28)
[2024-05-18] MEDS ORDERED: BACITRACIN OINTMENT 14 GM TUBE TOP ONE (08:28)
[2024-05-18] MEDS ORDERED: LIDOCAINE 1% MPF 5 ML VIAL ONE (08:29)
[2024-05-18] MEDS ORDERED: FENTANYL CITR 100 MCG/2 ML ONE (08:29)
[2024-05-18] MEDS ORDERED: propofoL 200 MG/20 ML VIAL IV ONE (08:29)
[2024-05-18] MEDS ORDERED: NA CHLORIDE 0.9% 100 ML ONE (08:29)
[2024-05-18] MEDS ORDERED: CEFAZOLIN SODIUM 2 GM in NA CHLORIDE 0.9% 100 ML IVPB SCH (09:00)
[2024-05-18] MEDS: CEFAZOLIN SODIUM 2 GM/VIAL ONE (09:20)
[2024-05-18] MEDS ORDERED: Mastisol Adhesive Liq ONE (09:45)
[2024-05-18] MEDS ORDERED: HYDROCODONE/APAP 5/325 MG TAB PO PRN (09:51)
--- NOTE | 2024-05-18 09:54 | P.OP ---
Date of Service: 05/18/24 Preop diagnosis: End-stage renal disease Postop diagnosis: Same Procedure performed: Placement of right IJ tunneled dialysis catheter, interpretation of intraoperative fluoroscopy Surgeon: Julio Brower MD Operations Mgr: None Estimated blood loss: Minimal Specimen: None Findings: Normal anatomy Anesthesia: MAC Complications: None Drains: None Fluids and blood products: Nonapplicable Disposition: Recovery room Operative note: Patient brought to the OR and placed in the supine position. MAC anesthesia began. Patient prepped and draped in the usual sterile fashion. Lidocaine 1% infiltrated locally. As patient already had a Ashish catheter, a guidewire was passed and the Ashish catheter was removed. A counterincision on the right anterior chest was made. A tunneling device was used to tunnel the dialysis catheter between the 2 wounds. Seldinger technique was used. Tip of the catheter was placed under fluoroscopy at the SVC right atrial junction. Catheter was flushed with heparin and packed with heparin. There was good blood flow. 3-0 chromic was used to reapproximate subcutaneous tissue and close skin. Sterile was used to secure the catheter to the chest wall. Sterile dressing applied. Patient awakened and taken to recovery room in good general condition. Chest x-ray has been ordered. CC: Dr. Flores's office
[2024-05-18] MEDS: HEPARIN 5000 UNIT/ML 1 ML VIAL ONE (10:05)
[2024-05-18] MEDS: LIDOCAINE 1% MPF 5 ML VIAL ONE (10:13)
--- NOTE | 2024-05-18 10:23 | RAD REPORT ---
EXAM DESCRIPTION: Aric Single View05/18/2024 10:06 am CLINICAL HISTORY: Device placement/central venous catheter placement IMPRESSION: Central venous catheter with its tip in the superior vena cava No pneumothorax
--- NOTE | 2024-05-18 10:33 | RAD REPORT ---
EXAM DESCRIPTION: RAD - Fluoroscopy <1 Hour - 05/18/2024 10:06 am CLINICAL HISTORY: Device placement central venous catheter placement FINDINGS: A central venous catheter was placed into the superior vena cava. Two fluoroscopic spot im ages are submitted. Fluoroscopy time 0 minutes The examination was performed by Dr. Brower
[2024-05-18] MEDS ORDERED: ALBUMIN HUMAN 25% 100 ML IV ONE (11:00)
--- NOTE | 2024-05-18 11:11 | P.PN ---
Subjective Date of Service: 05/18/24 Chief Complaint: Elevated RFT Pt is resting comfortably in bed. Cr is 9.42<- 8.63 <- 7.71 <- 8.51 s/p dialysis. He has a dialysis catheter in right neck. Gen surgeon will place dialysis catheter placement today. No other complaints. Review of Systems General: Unremarkable Eyes: Unremarkable ENT: Unremarkable Respiratory: Unremarkable Cardiovascular: Unremarkable Gastrointestinal: Unremarkable Genitourinary: Unremarkable Musculoskeletal: Unremarkable Integumentary: Unremarkable Neurological: Unremarkable Lymphatics: Unremarkable Physical Examination - Vital Signs Temperature: 98 F Blood Pressure: 105/64 Pulse: 84 Respirations: 18 Pulse Ox (%): 96 - Physical Exam General: Alert, In no apparent distress, Oriented x3 HEENT: Atraumatic, Normocephalic, PERRLA Neck: Supple, 2+ carotid pulse no bruit, JVD not distended Respiratory: Clear to auscultation bilaterally, Normal air movement, Diminished Cardiovascular: No edema, Normal pulses, Regular rate/rhythm Capillary refill: <2 Seconds Gastrointestinal: Normal bowel sounds, Soft and benign, Non-distended Musculoskeletal: No clubbing, No swelling, No contractures Integumentary: No rashes, No breakdown, No significant lesion Neurological: Normal gait, Normal speech, Normal strength at 5/5 x4 extr Lymphatics: No axilla or inguinal lymphadenopathy - Studies Medications List Reviewed: Yes Assessment And Plan - Plan Acute on chronic disease, stage 3: Will continue dialysis. Cr is 9.42 <- 8.63<- 7.71 <- 8.51<- 7.59. Nephrology is following. Gen surgeon will place dialysis catheter placement today. Htn: Continue home med DM II: Continue accuchek, SSI and ADA diet. Anemia of chronic disease: hgb is 10.3 <- 10.2 <- 9.2. Will monitor H/H. Hypokalemia: K is 4.3 <- 3.8 <- 3.6 <- 3.0. Will replete and monitor. Hx of colon cancer s/p partial colectomy with colostomy: Noted. DVT ppx: SCD Dispo: pending hospital course pending Clearance by Nephrology. it portfolio manager will set up dialysis chair. Will place dialysis catheter today
--- NOTE | 2024-05-18 11:36 | P.PN ---
(S) Pt seen on HD, s/p TDC, new CVC is working but reversed, Qb 300 ml/min, pt denies any active complaints (O) Vitals reviewed in the EMR General: Other (Pale, chronically ill appearing) HEENT: Atraumatic, Normocephalic Neck: Supple, Rt iJ Cory Respiratory: Clear to auscultation bilaterally, Normal air movement Cardiovascular: No edema, Regular rate/rhythm, Normal S1 S2, Other (Cardiac murmur noted) Gastrointestinal: Soft and benign, Non-distended, Other (Lt sided ostomy) Musculoskeletal: No swelling, No contractures, No tenderness Integumentary: No rashes Neurological: Other (Awake, able to converse, no tremors or myoclonus noted) Laboratory Data (last 24 hrs) Reviewed Conclusions/Impression: A/P) 1. Sub acute Stage III ARF per ANGELICA definition on underlying CKD, possibly Stage IIIB with prior u/s showing preserved renal sizes but echogenic kidneys. ARF in the setting of presumed vol depletion, ostomy losses, other leading to ATN given severity of renal failure. CT imaging did not show hydro. No signs of renal recovery and Cr levels remained sig elevated off HD, pt is a poor candidate for invasive renal biopsy and GN less suspected. Urine studies with sub nephrotic proteinuria. Abnormal findings in urine with microscopic hematuria but in the setting of goldberg and yeast in urine. Pt is deemed to likely be ESRD given dialysis dependence currently, pt has been referred for OP HD and has undergone TDC conversion 2. Repeat HD today for clearance without UF 3. Anemia 2nd to CKD, other -s/p transfusions, monitor closely Rocky Flores MD, JW
[2024-05-18] MEDS: FLUCONAZOLE 100 MG TAB PO SCH (15:09)
[2024-05-19 06:16] LABS: Absolute Basophils 0.1 K/uL (0-0.5); Absolute Eosinophils 0.5 K/uL (0-0.5); Absolute Monocytes 1.5 K/uL (0.1-1.3); Absolute Neutrophil 11.3 K/uL (1.8-8.0); Basophils % 0.7 % (0-1.3); Eosinophils % 3.1 % (0-4.4); Hematocrit 32.4 % (39.6-49.0); Hemoglobin 10.2 g/dL (13.6-17.9); Lymphocytes % 13.2 % (15.3-44.8); MCH 27.3 pg (27.0-35.0); MCHC 31.4 g/dL (32.0-36.0); MCV 87.2 fL (80-100); MPV 9.7 fL (7.6-11.3); Monocytes % 9.4 % (3.3-12.3); Neutrophils % 73.6 % (41.7-73.7); Platelets 152 thou/uL (152-406); RBC Red Blood Cell Count 3.71 M/uL (4.33-5.43); Red Cell Distribution Width 17.4 % (12.1-15.2)
[2024-05-19 06:42] LABS: Anion Gap 12.3 mEq/L (5.0-15.0); Potassium 4.3 mEq/L (3.5-5.1)
--- NOTE | 2024-05-19 11:18 | P.PN ---
Subjective Date of Service: 05/19/24 Chief Complaint: Elevated RFT Pt is resting comfortably in bed. Cr is 6.97 <- 9.42<- 8.63 <- 7.71 <- 8.51 s/p dialysis. Gen surgeon placed dialysis catheter on 05/18/24. No other complaints. Review of Systems General: Unremarkable Eyes: Unremarkable ENT: Unremarkable Respiratory: Unremarkable Cardiovascular: Unremarkable Gastrointestinal: Unremarkable Genitourinary: Unremarkable Musculoskeletal: Unremarkable Integumentary: Unremarkable Neurological: Unremarkable Lymphatics: Unremarkable Physical Examination - Vital Signs Temperature: 98.4 F Blood Pressure: 117/72 Pulse: 86 Respirations: 15 Pulse Ox (%): 98 - Physical Exam General: Alert, In no apparent distress, Oriented x3 HEENT: Atraumatic, Normocephalic, PERRLA Neck: Supple, 2+ carotid pulse no bruit, JVD not distended Respiratory: Clear to auscultation bilaterally, Normal air movement Cardiovascular: No edema, Normal pulses, Regular rate/rhythm, Normal S1 S2 Capillary refill: <2 Seconds Gastrointestinal: Normal bowel sounds, Soft and benign, Non-distended Musculoskeletal: No clubbing, No swelling, No contractures Integumentary: No rashes, No breakdown, No significant lesion Neurological: Normal gait, Normal speech, Normal strength at 5/5 x4 extr, Normal tone, Sensation intact Lymphatics: No axilla or inguinal lymphadenopathy - Studies Medications List Reviewed: Yes Assessment And Plan - Plan Acute on chronic disease, stage 5/ ESRD: Will continue dialysis. Cr is 9.42 <- 8.63<- 7.71 <- 8.51<- 7.59. Nephrology is following. Gen surgeon placed dialysis catheter on 05/18/23. Will continue renal diet. Waiting for outpt dialysis chair and time. Htn: Continue home med DM II: Continue accuchek, SSI and ADA diet. Anemia of chronic disease: hgb is 10.2 <- 10.3 <- 10.2 <- 9.2. Will monitor H/H. Hypokalemia: K is 4.3 <- 3.8 <- 3.6 <- 3.0. Will replete and monitor. Hx of colon cancer s/p partial colectomy with colostomy: Noted. DVT ppx: SCD Dispo: pending hospital course pending Clearance by Nephrology. manager managed backup services will set up dialysis chair and time. Gen surgeon placed dialysis catheter on 05/18/24.
--- NOTE | 2024-05-19 13:27 | P.PN ---
Date of Service: 05/19/24 Vital Signs Temp Pulse Resp BP Pulse Ox 98.4 F 86 15 117/72 98 05/19/24 11:22 05/19/24 11:22 05/19/24 11:22 05/19/24 11:22 05/19/24 11:22 Medications Acetaminophen (Acetaminophen 325 Mg Tablet) 650 mg PO Q4HP PRN PRN Reason: Pain scale 2-4 (Mild) Hydrocodone Bitart/Acetaminophen (Hydrocodone/Apap 5/325 Mg Tab) 1 tab PO Q6H PRN PRN Reason: Pain scale 5-7 (Moderate) Enteral Nutritional Formula (Nepro Shake 237 Ml Can) 237 ml PO TID [facility] Last Admin: 05/19/24 09:18 Dose: 237 ml Fluconazole (Fluconazole 100 Mg Tab) 100 mg PO DAILY [facility]; Protocol Stop: 05/23/24 12:01 Last Admin: 05/19/24 09:16 Dose: 100 mg Sodium Chloride (Sodium Chloride) 250 mls @ 0 mls/hr IV .Q0M [facility] Ondansetron HCl (Ondansetron 4 Mg/2 Ml Vial) 4 mg IV Q6HP PRN PRN Reason: NAUSEA / VOMITING Last Admin: 05/12/24 15:40 Dose: 4 mg Microbiology Results 05/11/24 16:20 Blood - Blood Aerobic Blood Culture - Final No growth in 5 days. 05/11/24 16:20 Blood - Blood Anaerobic Blood Culture - Final No growth in 5 days. 05/11/24 16:35 Blood - Blood Aerobic Blood Culture - Final No growth in 5 days. 05/11/24 16:35 Blood - Blood Anaerobic Blood Culture - Final No growth in 5 days. Assessment/ Plan: Nephrology No dyspnea No chest pain Feeling better and stronger No acute events overnight Vitals, medications, blood work and imaging reviewed in the chart NAD. MMM. RIJ CVC. NCAT. Normal Respiratory Effort. S1S2. ND Abd. LLQ Ostomy. No C/C/E. No rash. AAO. Normal speech. Sandoval light. Stage III CARSON likely hypovolemia complicated by ATN CKD III with Proteinuria -No NSAIDs -Next HD Tuesday -TDC functional -HD placement pending Hyponatremia -HD as ordered Hypokalemia -Replete prn Hypomagnesemia -Replete prn HyperPhosphatemia -Phoslo prn HTN with CKD -Monitor BP Hypoalbuminemia -Continue Nepro Anemia in chronic illness -Monitor H&H -Retacrit prn Hospitalist note reviewed
[2024-05-20 06:16] LABS: Absolute Basophils 0.1 K/uL (0-0.5); Absolute Eosinophils 0.7 K/uL (0-0.5); Absolute Lymphocytes (CBC) 2.1 K/uL (0.7-4.9); Absolute Monocytes 1.6 K/uL (0.1-1.3); Absolute Neutrophil 9.8 K/uL (1.8-8.0); Basophils % 0.8 % (0-1.3); Eosinophils % 4.7 % (0-4.4); Hematocrit 30.2 % (39.6-49.0); Hemoglobin 9.9 g/dL (13.6-17.9); Lymphocytes % 14.8 % (15.3-44.8); MCH 28.2 pg (27.0-35.0); MCHC 32.6 g/dL (32.0-36.0); MCV 86.5 fL (80-100); MPV 9.8 fL (7.6-11.3); Neutrophils % 68.7 % (41.7-73.7); Nucleated Red Blood Cells % 0.1 % (0-0); Platelets 183 thou/uL (152-406); RBC Red Blood Cell Count 3.49 M/uL (4.33-5.43); Red Cell Distribution Width 17.3 % (12.1-15.2)
[2024-05-20 06:27] LABS: Anion Gap 13.3 mEq/L (5.0-15.0); Potassium 4.3 mEq/L (3.5-5.1)
--- NOTE | 2024-05-20 08:08 | P.PN ---
Subjective Date of Service: 05/20/24 Chief Complaint: Elevated RFT Pt is resting comfortably in bed. Cr is 8.54<- 6.97 <- 9.42<- 8.63 <- 7.71 <- 8.51 s/p dialysis. Gen surgeon placed dialysis catheter on 05/18/24. Pt is waiting for dialysis chair and time. No other complaints. Review of Systems General: Unremarkable Eyes: Unremarkable ENT: Unremarkable Respiratory: Unremarkable Cardiovascular: Unremarkable Gastrointestinal: Unremarkable Genitourinary: Unremarkable Musculoskeletal: Unremarkable Integumentary: Unremarkable Neurological: Unremarkable Lymphatics: Unremarkable Physical Examination - Vital Signs Temperature: 97.6 F Blood Pressure: 118/69 Pulse: 82 Respirations: 16 Pulse Ox (%): 98 - Physical Exam General: Alert, In no apparent distress, Oriented x3 HEENT: Atraumatic, Normocephalic, PERRLA Neck: Supple, 2+ carotid pulse no bruit, JVD not distended Respiratory: Clear to auscultation bilaterally, Normal air movement Cardiovascular: No edema, Normal pulses, Regular rate/rhythm, Normal S1 S2 Capillary refill: <2 Seconds Gastrointestinal: Normal bowel sounds, Soft and benign, Non-distended Musculoskeletal: No clubbing, No swelling, No contractures Integumentary: No rashes, No breakdown, No significant lesion Neurological: Normal gait, Normal speech, Normal strength at 5/5 x4 extr Lymphatics: No axilla or inguinal lymphadenopathy - Studies Medications List Reviewed: Yes Assessment And Plan - Plan Acute on chronic disease, stage 5/ ESRD: Will continue dialysis. Cr is 8.54<- 6.7<- 9.42 <- 8.63<- 7.71 <- 8.51<- 7.59. Nephrology is following. Gen surgeon placed dialysis catheter on 05/18/23. Will continue renal diet. Waiting for outpt dialysis chair and time. Htn: Continue home med DM II: Continue accuchek, SSI and ADA diet. Anemia of chronic disease: hgb is 9.9 <- 10.2 <- 10.3 <- 10.2 <- 9.2. Will monitor H/H. Hypokalemia: K is 4.3 <- 3.8 <- 3.6 <- 3.0. Will replete and monitor. Hx of colon cancer s/p partial colectomy with colostomy: Noted. DVT ppx: SCD Dispo: pending hospital course pending Clearance by Nephrology. manager garden will set up dialysis chair and time. Gen surgeon placed dialysis catheter on 05/18/24.
[2024-05-20 09:28] LABS: C-ANCA Anti-Proteinase 3 <1.0 AI (<1.0); P-ANCA Anti-Myeloperoxidase Ab <1.0 AI (<1.0)
[2024-05-21 05:41] LABS: Absolute Basophils 0.1 K/uL (0-0.5); Absolute Eosinophils 0.6 K/uL (0-0.5); Absolute Monocytes 1.3 K/uL (0.1-1.3); Absolute Neutrophil 10.1 K/uL (1.8-8.0); Basophils % 0.9 % (0-1.3); Eosinophils % 4.3 % (0-4.4); Hemoglobin 10.3 g/dL (13.6-17.9); Lymphocytes % 14.3 % (15.3-44.8); MCH 27.9 pg (27.0-35.0); MCHC 32.3 g/dL (32.0-36.0); MCV 86.4 fL (80-100); MPV 9.7 fL (7.6-11.3); Monocytes % 9.1 % (3.3-12.3); Neutrophils % 71.4 % (41.7-73.7); Nucleated Red Blood Cells % 0.1 % (0-0); Platelets 199 thou/uL (152-406); RBC Red Blood Cell Count 3.71 M/uL (4.33-5.43); Red Cell Distribution Width 17.4 % (12.1-15.2)
[2024-05-21 06:02] LABS: ALT/SGPT 24 U/L (16-61); AST/SGOT 36 U/L (15-37); Albumin 3.2 g/dL (3.4-5.0); Albumin/Globulin Ratio 0.7 (1.1-1.8); Alkaline Phosphatase 135 U/L (45-117); Anion Gap 18.4 mEq/L (5.0-15.0); BUN Blood Urea Nitrogen 115 mg/dL (7-18); Bicarbonate 16 mEq/L (21-32); Globulin 4.5 g/dL (2.3-3.5); Glomerular Filtration Rate 5 ml/min (=/>90); Glucose Level 129 mg/dL (74-106); Potassium 5.4 mEq/L (3.5-5.1); Protein, Total 7.7 g/dL (6.4-8.2); Sodium Level 131 mEq/L (136-145)
[2024-05-21 06:04] LABS: Bilirubin Direct < 0.2 mg/dL (0-0.2); Bilirubin Total < 0.2 mg/dL (0.2-1.0)
--- NOTE | 2024-05-21 08:39 | P.PN ---
Date of Service: 05/21/24 Subjective End-stage renal disease with initiation of hemodialysis catheter Nephrology following for hemodialysis, pending dispo discharge planning for chair, Review of Systems 10-point ROS is otherwise unremarkable Physical Examination - Vital Signs Reviewed - Physical Exam General: Alert, In no apparent distress, Oriented x3 HEENT: Atraumatic, Normocephalic Neck: Supple, 2+ carotid pulse no bruit Respiratory: Clear to auscultation bilaterally, Normal air movement Cardiovascular: Normal pulses, Regular rate/rhythm, Normal S1 S2 Capillary refill: <2 Seconds Gastrointestinal: Soft and benign, W/out hepatosplenomegaly Musculoskeletal: No clubbing, No swelling Integumentary: No rashes, No breakdown : Sandoval to bedside drainage Neurological: Normal speech, Normal strength at 5/5 x4 extr, Cranial nerves 3-12 intact, Normal reflexes 2+ Lymphatics: No axilla or inguinal lymphadenopathy Assessment and Plan - Plan End-stage renal disease on hemodialysis Acute on chronic renal failure improved Acute kidney injury on CKD Monitor renal parameters Nephrology consulted Started on IV hydration Monitor electrolytes and replace accordingly Surgery following for hemodialysis catheter today Nephrology following for dialysis today Leukocytosis improved Blood cultures negative for growth UA 3+ yeast, +CFU Fluconazole Metabolic acidosis improved Creatinine of 21.7 with anion gap of 21.9 Started on sodium bicarb drip Monitor anion gap Bicarb drip Hypertension Antihypertensives titrated Continue home medications and titrate as needed Hyperlipidemia Continue statin Diabetes Insulin sliding scale Accu-Chek before every meal and at bedtime Severe anemia Anemia of chronic disease Monitor H&H closely No overt bleeding at this time Type and cross, transfuse 2 unit Trend H&H GI/DVT prophylaxis heparin held due to severe anemia Advanced directive full code - Advance Directives Does patient have a Living Will: No Does patient have a Durable POA for Healthcare: No Time spent with patient 35-minute <Jessica Sandoval - Last Filed: 05/25/24 17:26> Chart has been reviewed. Events of the last 24 hours have been noted. Case discussed with MARIO. I performed a substantial part of the MDM during this patient's care today. I personally made or approved the documented management plan and acknowledge its risk of complications. I agree with the findings and documentation provided in the MARIO's notes. Arranging for outpatient dialysis <Yoseph Cunningham - Last Filed: 06/01/24 03:27>
[2024-05-21] MEDS ORDERED: FLUCONAZOLE 100 MG TAB PO SCH (09:00)
[2024-05-21] MEDS: SODIUM ZIRCONIUM CYCLOSILICATE 10 GM/PKT PO ONE (10:07)
[2024-05-21] MEDS: MANNITOL 25% 12.5 GM/50 ML VIAL IV PRN (13:30)
[2024-05-21 13:37] LABS: Anti-Nuclear Antibody Screen Negative (Negative)
--- NOTE | 2024-05-22 07:18 | P.DS ---
Admission Date: 05/11/24 Discharge Date: 05/25/24 Reason for Admission: Elevated RFT Brief History of Present Illness: 63 yrs old Male with past medical history of colon cancer status post colectomy and colostomy placement, diabetes, hypertension, CKD who came to ER with generalized weakness and fatigue that and decreased appetite and nausea and vomiting. Symptoms has been going on for the last 3 weeks and has been progressively getting worse. He has felt weak and unsteady on his feet for a week , states that he has not been eating or drinking as much and seems to get short of breath on exertion. Patient was assessed in the ER and was found to have acute kidney injury with a creatinine more than 20 and was admitted for further management - Physical Exam General: Alert, In no apparent distress, Oriented x3 HEENT: Atraumatic, Normocephalic Neck: Supple, 2+ carotid pulse no bruit Respiratory: Clear to auscultation bilaterally, Normal air movement Cardiovascular: Normal pulses, Regular rate/rhythm, Normal S1 S2 Capillary refill: <2 Seconds Gastrointestinal: Soft and benign, W/out hepatosplenomegaly Musculoskeletal: No clubbing, No swelling Integumentary: No rashes, No breakdown Neurological: Normal speech, Normal strength at 5/5 x4 extr, Cranial nerves 3-12 intact, Normal reflexes 2+ Lymphatics: No axilla or inguinal lymphadenopathy Hospital Course: 63 yrs old Male with past medical history of colon cancer status post colectomy and colostomy placement, diabetes, hypertension, CKD who came to ER with generalized weakness and fatigue that and decreased appetite and nausea and vomiting. He was noted to have acute renal failure, he was evaluated by surgery for tunneled dialysis catheter. He was evaluated by nephrology, started on hemodialysis. He is tolerating diet, stable to discharge home with follow-up with nephrology for dialysis outpatient Patient needs to call Rand Parkinson [phone] for hemodialysis chair time on Tuesday She Spoke with patient, waiting Chair time on Tuesday, discussed with Dr Florse, Dr Cunningham Assessment End-stage renal disease, acute renal failure, started on hemodialysis Discharge with follow-up with nephrology, nephrology to set up outpatient hemodialysis Severe anemia he was treated with 2 units of packed red blood cells, no active bleeding Continue home medicines as previously prescribed GOAL: Clear understanding of disease process INSTRUCTIONS: Physician Discharge Instructions: -Follow-up with nephrology after discharge Dr. Brush -Follow-up with PCP in 1 to 2 weeks -Follow-up with nephrology after discharge -Please call Dr. Cunningham at [phone] if any questions regarding hospital stay -Please call nursing station at [phone] if any nursing or medication questions -Return to the emergency room if symptoms worsen Diet: ADA, low sodium Activity: Fall precautions <Jessica Sandoval - Last Filed: 05/25/24 17:15> Admission Date: 05/11/24 Discharge Date: 05/25/24 - Problems (1) CKD (chronic kidney disease) stage 4, GFR 15-29 ml/min Status: Acute (2) Type 2 diabetes mellitus Status: Chronic Qualifiers: Diabetes mellitus shelter insulin use: without shelter use Diabetes mellitus complication status: with hyperglycemia Qualified Code(s): E11.65 - Type 2 diabetes mellitus with hyperglycemia (3) Hypertension Status: Chronic Qualifiers: Hypertension type: primary hypertension Qualified Code(s): I10 - Essential (primary) hypertension (4) Presence of colostomy Status: Acute (5) Colon cancer Status: Chronic Qualifiers: Colon location: unspecified part of colon Qualified Code(s): C18.9 - Malignant neoplasm of colon, unspecified (6) Anemia in chronic kidney disease Status: Acute (7) Other complications of colostomy Status: Acute (8) Hypokalemia Status: Acute Hospital Course: Chart has been reviewed. Events of the last 24 hours have been noted. Case discussed with MARIO. I performed a substantial part of the MDM during this patient's care today. I personally made or approved the documented management plan and acknowledge its risk of complications. I agree with the findings and documentation provided in the MARIO's notes. Arranging for outpatient hemodialysis <Yoseph Cunningham - Last Filed: 06/01/24 03:28> Disposition: ROUTINE DISCHARGE Vital Signs/Physical Exam: Temp Pulse Resp BP Pulse Ox 97.4 F 90 18 141/78 H 100 05/22/24 04:00 05/22/24 04:00 05/22/24 04:00 05/22/24 04:00 05/22/24 04:00 Laboratory Data at Discharge: WBC 14.10 thou/uL (4.3-10.9) H 05/21/24 04:43 Hgb 10.3 g/dL (13.6-17.9) L 05/21/24 04:43 Hct 32.0 % (39.6-49.0) L 05/21/24 04:43 Plt Count 199 thou/uL (152-406) 05/21/24 04:43 PT 11.4 SECONDS (9.4-12.5) 05/11/24 16:35 INR 1.02 05/11/24 16:35 APTT 34.3 SECONDS (24.3-36.9) 05/11/24 16:35 Sodium 131 mEq/L (136-145) L 05/21/24 04:43 Potassium 5.4 mEq/L (3.5-5.1) H D 05/21/24 04:43 BUN 115 mg/dL (7-18) H 05/21/24 04:43 Creatinine 9.87 mg/dL (0.70-1.30) H 05/21/24 04:43 Glucose 129 mg/dL (74-106) H 05/21/24 04:43 Uric Acid 7.8 mg/dL (3.5-7.2) H 05/18/24 06:34 Phosphorus 3.1 mg/dL (2.5-4.9) 05/18/24 06:34 Magnesium 2.2 mg/dL (1.6-2.4) 05/18/24 06:34 Total Bilirubin < 0.2 mg/dL (0.2-1.0) L 05/21/24 04:43 AST 36 U/L (15-37) 05/21/24 04:43 ALT 24 U/L (16-61) 05/21/24 04:43 Alkaline Phosphatase 135 U/L (45-117) H 05/21/24 04:43 <Jessica Sandoval - Last Filed: 05/25/24 17:15> Vital Signs/Physical Exam: Temp Pulse Resp BP Pulse Ox 97.5 F 113 H 16 113/66 100 05/25/24 16:00 05/25/24 17:57 05/25/24 16:00 05/25/24 17:57 05/25/24 16:00 Laboratory Data at Discharge: WBC 10.60 thou/uL (4.3-10.9) 05/24/24 06:18 Hgb 9.7 g/dL (13.6-17.9) L 05/24/24 06:18 Hct 29.2 % (39.6-49.0) L 05/24/24 06:18 Plt Count 230 thou/uL (152-406) 05/24/24 06:18 PT 11.4 SECONDS (9.4-12.5) 05/11/24 16:35 INR 1.02 05/11/24 16:35 APTT 34.3 SECONDS (24.3-36.9) 05/11/24 16:35 Sodium 133 mEq/L (136-145) L 05/24/24 06:18 Potassium 4.6 mEq/L (3.5-5.1) 05/24/24 06:18 BUN 45 mg/dL (7-18) H 05/24/24 06:18 Creatinine 5.73 mg/dL (0.70-1.30) H 05/24/24 06:18 Glucose 113 mg/dL (74-106) H 05/24/24 06:18 Uric Acid 6.8 mg/dL (3.5-7.2) 05/23/24 06:05 Phosphorus 3.8 mg/dL (2.5-4.9) 05/24/24 06:18 Magnesium 2.0 mg/dL (1.6-2.4) 05/23/24 06:05 Total Bilirubin 0.4 mg/dL (0.2-1.0) 05/24/24 06:18 AST 31 U/L (15-37) 05/24/24 06:18 ALT 24 U/L (16-61) 05/24/24 06:18 Alkaline Phosphatase 140 U/L (45-117) H 05/24/24 06:18 <Yoseph Cunningham - Last Filed: 06/01/24 03:28> Diet: Renal Activity: Fall precautions Time spent managing pt's care (in minutes): 55 <Jessica Sandoval - Last Filed: 05/25/24 17:15> <Yoseph Cunningham - Last Filed: 06/01/24 03:28> Home Medications: Docusate Sodium 100 mg PO DAILY 05/11/24 carvediloL [Coreg] 12.5 mg PO BID 30 Days #60 tab 05/25/24 New Medications: carvediloL [Coreg] 12.5 mg PO BID 30 Days #60 tab Physician Discharge Instructions: 63 yrs old Male with past medical history of colon cancer status post colectomy and colostomy placement, diabetes, hypertension, CKD who came to ER with generalized weakness and fatigue that and decreased appetite and nausea and vomiting. He was noted to have acute renal failure, he was evaluated by juanita crowder for tunneled dialysis catheter. He was evaluated by nephrology, started on hemodialysis. He is tolerating diet, stable to discharge home with follow-up with nephrology for dialysis outpatient Patient needs to call [facility] [phone] for hemodialysis chair time on Tuesday She Spoke with patient, waiting Chair time on Tuesday, discussed with Dr Flores, Dr Cunningham Assessment End-stage renal disease, acute renal failure, started on hemodialysis Discharge with follow-up with nephrology, nephrology to set up outpatient hemodialysis Severe anemia he was treated with 2 units of packed red blood cells, no active bleeding Hypertension, started on Coreg twice daily for hypertension 12.5 p.o. twice daily for hypertension, Continue home medicines as previously prescribed GOAL: Clear understanding of disease process INSTRUCTIONS: Physician Discharge Instructions: -Follow-up with PCP in 1 to 2 weeks -Follow-up with nephrology after discharge -Arrangements for discharge with outpt HD -Please call Dr. Cunningham at [phone] if any questions regarding hospital stay -Please call nursing station at [phone] if any nursing or medication questions -Return to the emergency room if symptoms worsen Diet: ADA, low sodium Activity: Fall precautions Followup: Sanjay Santos DO [ACTIVE - CAN ADMIT] - 1-2 Weeks NONE,NONE [Primary Care Provider] - Baljit Carney MD [OUTSIDE PHYSICIAN] - 1-2 Weeks
--- NOTE | 2024-05-22 08:02 | P.PN ---
Date of Service: 05/22/24 Vital Signs Temp Pulse Resp BP Pulse Ox 97.4 F 90 18 141/78 H 100 05/22/24 04:00 05/22/24 04:00 05/22/24 04:00 05/22/24 04:00 05/22/24 04:00 Medications Acetaminophen (Acetaminophen 325 Mg Tablet) 650 mg PO Q4HP PRN PRN Reason: Pain scale 2-4 (Mild) Hydrocodone Bitart/Acetaminophen (Hydrocodone/Apap 5/325 Mg Tab) 1 tab PO Q6H PRN PRN Reason: Pain scale 5-7 (Moderate) Enteral Nutritional Formula (Nepro Shake 237 Ml Can) 237 ml PO TID [facility] Last Admin: 05/21/24 20:39 Dose: 237 ml Fluconazole (Fluconazole 100 Mg Tab) 100 mg PO DAILY [facility]; Protocol Stop: 05/23/24 12:01 Last Admin: 05/21/24 07:40 Dose: 100 mg Heparin Sodium (Porcine) (Heparin 1,000 Unit/Ml Vial) 6,000 unit IV EVERY HD PRN PRN Reason: FOR DIALYSIS CATHETER CARE Last Admin: 05/21/24 16:34 Dose: 6,000 unit Heparin Sodium (Porcine) (Heparin 1,000 Unit/Ml Vial) 2,000 unit IV EVERY HD PRN PRN Reason: Prevent HD System Clotting Last Admin: 05/21/24 13:27 Dose: 2,000 unit Sodium Chloride (Sodium Chloride) 250 mls @ 0 mls/hr IV .Q0M [facility] Mannitol (Mannitol 25% 12.5 Gm/50 Ml Vial) 25 gm IV EVERY HD PRN PRN Reason: Prevent DDS Last Admin: 05/21/24 13:30 Dose: 25 gm Ondansetron HCl (Ondansetron 4 Mg/2 Ml Vial) 4 mg IV Q6HP PRN PRN Reason: NAUSEA / VOMITING Last Admin: 05/12/24 15:40 Dose: 4 mg Microbiology Results 05/11/24 16:20 Blood - Blood Aerobic Blood Culture - Final No growth in 5 days. 05/11/24 16:20 Blood - Blood Anaerobic Blood Culture - Final No growth in 5 days. 05/11/24 16:35 Blood - Blood Aerobic Blood Culture - Final No growth in 5 days. 05/11/24 16:35 Blood - Blood Anaerobic Blood Culture - Final No growth in 5 days. Assessment/ Plan: Nephrology No dyspnea No chest pain No acute events overnight Vitals, medications, blood work and imaging reviewed in the chart NAD. MMM. RIJ CVC. NCAT. Normal Respiratory Effort. S1S2. ND Abd. LLQ Ostomy. No C/C/E. No rash. AAO. Normal speech. Sandoval light. Stage III CARSON likely hypovolemia complicated by ATN CKD III with Proteinuria -No NSAIDs -HD MWF -TDC functional -HD placement pending Hyponatremia -HD TIW Hypokalemia -Replete prn Hypomagnesemia -Replete prn HyperPhosphatemia -Phoslo prn HTN with CKD -Monitor BP Hypoalbuminemia -Continue Nepro Anemia in chronic illness -Monitor H&H -Retacrit prn Hospitalist note reviewed
[2024-05-22 14:51] LABS: Complement C3 111 mg/dL (82-185)
[2024-05-23 06:50] LABS: Absolute Basophils 0.2 K/uL (0-0.5); Absolute Eosinophils 0.5 K/uL (0-0.5); Absolute Lymphocytes (CBC) 2.4 K/uL (0.7-4.9); Absolute Monocytes 1.5 K/uL (0.1-1.3); Absolute Neutrophil 6.9 K/uL (1.8-8.0); Basophils % 1.3 % (0-1.3); Eosinophils % 4.2 % (0-4.4); Hematocrit 31.5 % (39.6-49.0); Hemoglobin 10.1 g/dL (13.6-17.9); Lymphocytes % 21.1 % (15.3-44.8); MCH 27.5 pg (27.0-35.0); MCV 85.9 fL (80-100); MPV 9.4 fL (7.6-11.3); Neutrophils % 60.4 % (41.7-73.7); Nucleated Red Blood Cells % 0.1 % (0-0); Platelets 205 thou/uL (152-406); RBC Red Blood Cell Count 3.67 M/uL (4.33-5.43); Red Cell Distribution Width 17.1 % (12.1-15.2)
[2024-05-23 07:09] LABS: Albumin 3.1 g/dL (3.4-5.0); Anion Gap 18.7 mEq/L (5.0-15.0); Phosphorus 5.3 mg/dL (2.5-4.9); Potassium 4.7 mEq/L (3.5-5.1); Uric Acid 6.8 mg/dL (3.5-7.2)
--- NOTE | 2024-05-23 17:20 | P.PN ---
(S) Pt seen post HD, tolerated session, denies any CP, dyspnea, abd pain or N/V. CM notes reviewed (O) Vitals reviewed in the EMR General: Other (Pale, chronically ill appearing) HEENT: Atraumatic, Normocephalic Neck: Supple, Rt iJ TDC Respiratory: Clear to auscultation bilaterally, Normal air movement Cardiovascular: No edema, Regular rate/rhythm, Normal S1 S2, Other (Cardiac murmur noted) Gastrointestinal: Soft and benign, Non-distended, Other (Lt sided ostomy) Musculoskeletal: No swelling, No contractures, No tenderness Integumentary: No rashes Neurological: Other (Awake, able to converse, no tremors or myoclonus noted) Laboratory Data (last 24 hrs) Reviewed Conclusions/Impression: A/P) 1. ESRD given dialysis dependence currently. Prior u/s showing preserved renal sizes but echogenic kidneys. No signs of renal recovery with Cr level rising off HD and remaining notably elevated, pt was deemed on admission to be a poor candidate for invasive renal biopsy and GN less suspected. Urine studies with sub nephrotic proteinuria. Abnormal findings in urine with microscopic hematuria but in the setting of goldberg and yeast in urine. Cont iHD, await OP chair time confirmation. 2. Azotemia, clear with HD, monitor URR, Kt/v as OP via TDC as flows were reduced or line reversed on prior treatment(s) 3. Anemia 2nd to CKD, other -s/p transfusions, monitor closely Rocky Flores MD, JW
[2024-05-24 06:55] LABS: Absolute Basophils 0.2 K/uL (0-0.5); Absolute Eosinophils 0.4 K/uL (0-0.5); Absolute Lymphocytes (CBC) 2.1 K/uL (0.7-4.9); Absolute Monocytes 1.4 K/uL (0.1-1.3); Absolute Neutrophil 6.6 K/uL (1.8-8.0); Basophils % 1.6 % (0-1.3); Eosinophils % 4.1 % (0-4.4); Hematocrit 29.2 % (39.6-49.0); Hemoglobin 9.7 g/dL (13.6-17.9); Lymphocytes % 19.3 % (15.3-44.8); MCH 28.5 pg (27.0-35.0); MCHC 33.4 g/dL (32.0-36.0); MCV 85.3 fL (80-100); MPV 8.7 fL (7.6-11.3); Monocytes % 13.1 % (3.3-12.3); Neutrophils % 61.9 % (41.7-73.7); Platelets 230 thou/uL (152-406); RBC Red Blood Cell Count 3.42 M/uL (4.33-5.43); Red Cell Distribution Width 17.1 % (12.1-15.2)
[2024-05-24 07:12] LABS: Albumin/Globulin Ratio 0.7 (1.1-1.8); Anion Gap 11.6 mEq/L (5.0-15.0); Bilirubin Total 0.4 mg/dL (0.2-1.0); Globulin 4.2 g/dL (2.3-3.5); Phosphorus 3.8 mg/dL (2.5-4.9); Potassium 4.6 mEq/L (3.5-5.1); Protein, Total 7.2 g/dL (6.4-8.2)
--- NOTE | 2024-05-24 10:59 | P.PN ---
Date of Service: 05/24/24 Vital Signs Temp Pulse Resp BP Pulse Ox 96.9 F 90 11 L 129/77 99 05/24/24 08:00 05/24/24 08:00 05/24/24 08:00 05/24/24 08:00 05/24/24 08:00 Medications Acetaminophen (Acetaminophen 325 Mg Tablet) 650 mg PO Q4HP PRN PRN Reason: Pain scale 2-4 (Mild) Enteral Nutritional Formula (Nepro Shake 237 Ml Can) 237 ml PO TID [facility] Last Admin: 05/24/24 07:59 Dose: 237 ml Heparin Sodium (Porcine) (Heparin 1,000 Unit/Ml Vial) 6,000 unit IV EVERY HD PRN PRN Reason: FOR DIALYSIS CATHETER CARE Last Admin: 05/23/24 13:06 Dose: 6,000 unit Heparin Sodium (Porcine) (Heparin 1,000 Unit/Ml Vial) 2,000 unit IV EVERY HD PRN PRN Reason: Prevent HD System Clotting Last Admin: 05/23/24 09:27 Dose: 2,000 unit Sodium Chloride (Sodium Chloride) 250 mls @ 0 mls/hr IV .Q0M [facility] Mannitol (Mannitol 25% 12.5 Gm/50 Ml Vial) 25 gm IV EVERY HD PRN PRN Reason: Prevent DDS Last Admin: 05/23/24 09:30 Dose: 25 gm Ondansetron HCl (Ondansetron 4 Mg/2 Ml Vial) 4 mg IV Q6HP PRN PRN Reason: NAUSEA / VOMITING Last Admin: 05/12/24 15:40 Dose: 4 mg Vitamin B Complex/Vit C/Folic Acid (Multivitamins,Therapeut 1 Tab) 1 tab PO DAILY [facility] Microbiology Results 05/11/24 16:20 Blood - Blood Aerobic Blood Culture - Final No growth in 5 days. 05/11/24 16:20 Blood - Blood Anaerobic Blood Culture - Final No growth in 5 days. 05/11/24 16:35 Blood - Blood Aerobic Blood Culture - Final No growth in 5 days. 05/11/24 16:35 Blood - Blood Anaerobic Blood Culture - Final No growth in 5 days. Assessment/ Plan: Nephrology No dyspnea No chest pain No acute events overnight Walking in the halls with a walker today Vitals, medications, blood work and imaging reviewed in the chart NAD. MMM. RIJ CVC. NCAT. Normal Respiratory Effort. S1S2. ND Abd. LLQ Ostomy. No C/C/E. No rash. AAO. Normal speech. Sandoval light. Stage III CARSON likely hypovolemia complicated by ATN CKD III with Proteinuria -No NSAIDs -HD MWF -TDC functional -HD placement pending due to poor renal recovery at this time Hyponatremia -HD TIW -Fluid restriction Hypokalemia -Replete prn Hypomagnesemia -Replete prn HyperPhosphatemia -Phoslo prn HTN with CKD -Monitor BP Hypoalbuminemia -Continue Nepro -Start MVI Anemia in chronic illness -Monitor H&H -Retacrit X1 Hospitalist note reviewed
[2024-05-24] MEDS: EPOETIN ALFA-EPBX 10,000 UNIT/ML VIAL SQ ONE (11:39)
--- NOTE | 2024-05-25 07:39 | P.PN ---
Date of Service: 05/24/24 Subjective Nephrology following for hemodialysis, pending dispo discharge planning for chair, Out of bed to chair, no verbalized complaints Review of Systems 10-point ROS is otherwise unremarkable Physical Examination - Vital Signs Reviewed - Physical Exam General: Alert, In no apparent distress, Oriented x3 HEENT: Atraumatic, Normocephalic Neck: Supple, 2+ carotid pulse no bruit Respiratory: Clear to auscultation bilaterally, Normal air movement Cardiovascular: Normal pulses, Regular rate/rhythm, Normal S1 S2 Capillary refill: <2 Seconds Gastrointestinal: Soft and benign, Left lower quadrant colostomy Musculoskeletal: No clubbing, No swelling Integumentary: No rashes, No breakdown : Sandoval to bedside drainage Neurological: Normal speech, Normal strength at 5/5 x4 extr, Lymphatics: No axilla or inguinal lymphadenopathy Assessment and Plan - Plan ESRD on HD Acute on chronic renal failure Acute kidney injury on CKD stage II Monitor renal parameters Nephrology consulted Started on IV hydration Monitor electrolytes and replace accordingly Surgery following for hemodialysis catheter today Nephrology following for dialysis Leukocytosis resolved Blood cultures negative for growth UA 3+ yeast, +CFU Fluconazole Metabolic acidosis improved Creatinine of 21.7 with anion gap of 21.9 Started on sodium bicarb drip Monitor anion gap Bicarb drip Hypertension Antihypertensives titrated Continue home medications and titrate as needed Hyperlipidemia Continue statin Diabetes Insulin sliding scale Accu-Chek before every meal and at bedtime Severe anemia improved Anemia of chronic disease Monitor H&H closely No overt bleeding at this time Type and cross, transfuse 2 unit Trend H&H GI/DVT prophylaxis heparin held due to severe anemia Advanced directive full code - Advance Directives Does patient have a Living Will: No Does patient have a Durable POA for Healthcare: No Time spent with patient 35-minute <Jessica Sandoval - Last Filed: 05/25/24 09:09> Patient was seen and examined. Events of the last 24 hours have been noted. Spoke with with MARIO regarding patient's clinical picture after evaluating and examining the patient independently. I performed a substantial part of the MDM during this patient's care today. I personally made or approved the documented management plan and acknowledge its risk of complications. I agree with the findings and documentation provided in the MARIO's notes. <Yoseph Cunningham - Last Filed: 05/25/24 11:07>
[2024-05-25 08:39] VITALS: O2SAT 99
--- NOTE | 2024-05-25 09:11 | P.PN ---
Date of Service: 05/25/24 Subjective Nephrology following for hemodialysis, pending dispo discharge planning for chair, Out of bed to chair, no verbalized complaints Review of Systems 10-point ROS is otherwise unremarkable Physical Examination - Vital Signs Reviewed - Physical Exam General: Alert, In no apparent distress, Oriented x3 HEENT: Atraumatic, Normocephalic Neck: Supple, 2+ carotid pulse no bruit Respiratory: Clear to auscultation bilaterally, Normal air movement Cardiovascular: Normal pulses, Regular rate/rhythm, Normal S1 S2 Capillary refill: <2 Seconds Gastrointestinal: Soft and benign, Left lower quadrant colostomy Musculoskeletal: No clubbing, No swelling Integumentary: No rashes, No breakdown : Sandoval to bedside drainage Neurological: Normal speech, Normal strength at 5/5 x4 extr, Lymphatics: No axilla or inguinal lymphadenopathy Assessment and Plan - Plan ESRD on HD Acute on chronic renal failure Acute kidney injury on CKD stage II Monitor renal parameters Nephrology consulted Started on IV hydration Monitor electrolytes and replace accordingly Surgery following for hemodialysis catheter today Nephrology following for dialysis Leukocytosis resolved Blood cultures negative for growth UA 3+ yeast, +CFU Fluconazole Metabolic acidosis improved Creatinine of 21.7 with anion gap of 21.9 Started on sodium bicarb drip Monitor anion gap Bicarb drip Hypertension Antihypertensives titrated Continue home medications and titrate as needed Hyperlipidemia Continue statin Diabetes Insulin sliding scale Accu-Chek before every meal and at bedtime Severe anemia improved Anemia of chronic disease Monitor H&H closely No overt bleeding at this time Type and cross, transfuse 2 unit Trend H&H GI/DVT prophylaxis heparin held due to severe anemia Advanced directive full code - Advance Directives Does patient have a Living Will: No Does patient have a Durable POA for Healthcare: No Time spent with patient 35-minute
[2024-05-25 10:21] VITALS: TEMP 97.5
[2024-05-25] MEDS: MULTIVITAMINS,THERAPEUT 1 TAB PO SCH (10:45)
--- NOTE | 2024-05-25 12:26 | P.PN ---
Brief Renal note Discharge pending OP chair time at [facility], did speak with SW there who has been in touch with [facility] insurance, awaiting final decision from their admissions office, will f/u this afternoon. HD arranged for today to cont [facility]
--- NOTE | 2024-05-25 17:29 | P.PN ---
Date of Service: 05/22/24 Subjective End-stage renal disease with initiation of hemodialysis catheter Nephrology following for hemodialysis, pending dispo discharge planning for chair, Review of Systems 10-point ROS is otherwise unremarkable Physical Examination - Vital Signs Reviewed - Physical Exam General: Alert, Oriented x3 afebrile HEENT: Atraumatic, Normocephalic Neck: Supple, 2+ carotid pulse no bruit Respiratory: Clear to auscultation bilaterally, unlabored Cardiovascular: Normal pulses, Regular rate/rhythm, Normal S1 S2 Capillary refill: <2 Seconds Gastrointestinal: Soft and benign, W/out hepatosplenomegaly Musculoskeletal: No clubbing, No swelling Integumentary: No rashes, No breakdown Neurological: Normal speech, Normal strength at 5/5 x4 extr, Lymphatics: No axilla or inguinal lymphadenopathy Assessment and Plan - Plan End-stage renal disease on hemodialysis Acute on chronic renal failure improved Acute kidney injury on CKD Monitor renal parameters Nephrology consulted Started on IV hydration Monitor electrolytes and replace accordingly Surgery following for hemodialysis catheter today Nephrology following for dialysis today Leukocytosis improved Blood cultures negative for growth UA 3+ yeast, +CFU Fluconazole Metabolic acidosis improved Creatinine of 21.7 with anion gap of 21.9 Started on sodium bicarb drip Monitor anion gap Bicarb drip Hypertension Antihypertensives titrated Continue home medications and titrate as needed Hyperlipidemia Continue statin Diabetes Insulin sliding scale Accu-Chek before every meal and at bedtime Severe anemia Anemia of chronic disease Monitor H&H closely No overt bleeding at this time Type and cross, transfuse 2 unit Trend H&H GI/DVT prophylaxis heparin held due to severe anemia Advanced directive full code - Advance Directives Does patient have a Living Will: No Does patient have a Durable POA for Healthcare: No Time spent with patient 25-minute <Jessica Sandoval - Last Filed: 05/25/24 17:29> Chart has been reviewed. Events of the last 24 hours have been noted. Case discussed with MARIO. I performed a substantial part of the MDM during this patient's care today. I personally made or approved the documented management plan and acknowledge its risk of complications. I agree with the findings and documentation provided in the MARIO's notes .Arranging for outpatient hemodialysis <Yoseph Cunningham - Last Filed: 06/01/24 03:28>
[2024-05-25] MEDS: carvediloL 12.5 MG TAB PO ONE (17:57)
[2024-05-25 18:01] VITALS: BP 113/66
--- NOTE | 2024-06-01 03:32 | P.PN ---
Date of Service: 05/23/24 Subjective Patient is clinically doing well. Arranging for outpatient hemodialysis. Stable for discharge once arrangements are completed. Physical Examination - Vital Signs Reviewed - Physical Exam General: Alert, In no apparent distress, Oriented x3 Respiratory: Clear to auscultation bilaterally, Normal air movement Cardiovascular: Normal pulses, Regular rate/rhythm, Normal S1 S2 Gastrointestinal: Soft and benign, Left lower quadrant colostomy Musculoskeletal: No clubbing, No swelling : Sandoval to bedside drainage Neurological: Normal speech, Normal strength at 5/5 x4 extr, Assessment and Plan - Assessment/Plan Assessment/Plan ESRD on HD Acute on chronic renal failure Acute kidney injury on CKD stage II Continue with hemodialysis. Arranging for outpatient hemodialysis Leukocytosis resolved Continue with antifungal Metabolic acidosis improved Creatinine of 21.7 with anion gap of 21.9 Started on sodium bicarb drip Monitor anion gap Bicarb drip Hypertension Antihypertensives titrated Continue home medications and titrate as needed Hyperlipidemia Continue statin Diabetes Insulin sliding scale Accu-Chek before every meal and at bedtime Severe anemia improved Anemia of chronic disease Hemoglobin is stable. GI/DVT prophylaxis heparin held due to severe anemia Advanced directive full code - Advance Directives Does patient have a Living Will: No Does patient have a Durable POA for Healthcare: No Time spent with patient 35-minute Patient was seen and examined. Events of the last 24 hours have been noted. Spoke with with MARIO regarding patient's clinical picture after evaluating and examining the patient independently. I performed a substantial part of the MDM during this patient's care today. I personally made or approved the documented management plan and acknowledge its risk of complications. I agree with the findings and documentation provided in the MARIO's notes.
== END 2024-05-25 19:23 | disposition home or self-care (01) | DRG 674 ==
LOC: ER 15:29 → ERHOLD 18:54 → 4TH 19:47 → 3RD-ICU 05-12 09:04 → 4TH 05-12 09:38
PROVIDERS: ADMIT Family Medicine; ATTEND Hospitalist
PROC: 5A1D70Z Performance of Urinary Filtration, Intermittent, Less than 6 Hours Per Day (ICD-10-PCS; 2024-05-12)
PROC: 02HV33Z Insertion of Infusion Device into Superior Vena Cava, Percutaneous Approach (ICD-10-PCS; 2024-05-12)
PROC: 02HV33Z Insertion of Infusion Device into Superior Vena Cava, Percutaneous Approach (ICD-10-PCS; 2024-05-18)
PROC: 0T9B70Z Drainage of Bladder with Drainage Device, Via Natural or Artificial Opening (ICD-10-PCS; 2024-05-18)
PROC: 30233N1 Transfusion of Nonautologous Red Blood Cells into Peripheral Vein, Percutaneous Approach (ICD-10-PCS; 2024-05-18)
PROC: 0JH63XZ Insertion of Tunneled Vascular Access Device into Chest Subcutaneous Tissue and Fascia, Percutaneous Approach (ICD-10-PCS; principal; 2024-05-18 09:00)
DX: N17.0 Acute kidney failure with tubular necrosis (principal); C18.9 Malignant neoplasm of colon, unspecified; E87.20 Acidosis, unspecified; I12.0 Hypertensive chronic kidney disease with stage 5 chronic kidney disease or end stage renal disease; E87.1 Hypo-osmolality and hyponatremia; N18.6 End stage renal disease; E11.22 Type 2 diabetes mellitus with diabetic chronic kidney disease; E11.65 Type 2 diabetes mellitus with hyperglycemia; D63.1 Anemia in chronic kidney disease; E83.51 Hypocalcemia; E83.42 Hypomagnesemia; E88.09 Other disorders of plasma-protein metabolism, not elsewhere classified; E83.39 Other disorders of phosphorus metabolism; E87.6 Hypokalemia; K59.00 Constipation, unspecified; E78.5 Hyperlipidemia, unspecified; Z93.3 Colostomy status; Z90.49 Acquired absence of other specified parts of digestive tract; Z79.899 Other long term (current) drug therapy
CPT/HCPCS: 36415; 51702; 71045; 71250; 74176; 76000; 80048; 80053; 80069; 80076; 81001; 82043; 82435; 82550; 82570; 82947; 83520; 83605; 83735; 84100; 84132; 84156; 84300; 84550; 85014; 85018; 85025; 85610; 85730; 86021; 86038; 86160; 86335; 86705; 86706; 86803; 86850; 86900; 86901; 86920; 87040; 87086; 87088; 87340; 88300; 90935; 93005; 94760; 96360; 97116; 97161; 99285; A4216; C1752; J1644; J2001; J2150; J2250; J2405; J2704; J3010; J3475; J3480; J7030; J7040; P9016; Q5106